=== PATIENT | male | born 1960 | race Caucasian/White ===

== ENCOUNTER 2018-12-23 17:19 | Inpatient (IN) | payer MEDICAID, SELFPAY ==
[2018-12-23] VITALS (8 sets, daily range): BP systolic 131–178; BP diastolic 80–110; PULSE 74–89; RESP 16–20; TEMP 36.5–37.3; O2SAT 94–97; BMI 46.7; BMI 47.1
--- NOTE | 2018-12-23 17:53 | CT_ITS ---
STUDY: CT BRAIN WITHOUT CONTRAST REASON FOR EXAM: Male, 58 years old. Fall today, trauma RADIATION DOSAGE (If Supplied By Facility): CTDIvol = ( 44.99 ) mGy, DLP = ( 812.98 ) mGycm TECHNIQUE: Transaxial CT imaging of the brain was performed without administration of intravenous contrast material. Individualized dose optimization techniques were used for this CT. COMPARISON: No relevant priors. FINDINGS: There are central and cortical involutional changes. There are mild deep white matter periventricular hypodensities. There are punctate hypodensities in the basal ganglia. There is a calcified lesion overlying the right frontal convexity within the subcutaneous soft tissues measuring 2.1 x 1.5 x 1.2 cm. Normal calvarium. Normal brainstem. Normal cerebellum. There is no intracranial hemorrhage. There are no findings of an acute ischemic infarction. There is mucosal thickening within the right maxillary sinus. CT/Brain/Head without Contrast IMPRESSION: Significant central and cortical involutional changes for the patient's age and should be correlated clinically Mild old deep white matter and basal ganglia small vessel ischemic changes Indeterminate most likely benign calcified lesion overlying the right frontal convexity within the subcutaneous soft tissues measuring 2.1 x 1.5 x 1.2 cm this should be correlated clinically and with physical exam findings and prior imaging Electronically Signed: Paul Valdez, at 18:57 EDT Tel , Service support ,
--- NOTE | 2018-12-23 17:54 | RAD_ITS ---
STUDY: X-RAY - RIGHT TIBIA AND FIBULA REASON FOR EXAM: Male, 58 years old. Fall, trauma TECHNIQUE: AP and lateral view(s) of the tibia and fibula were obtained. COMPARISON: None. FINDINGS: There are osteophytes at the Achilles tendon insertion. There is mild soft tissue edema. The bone mineralization is normal. There is subtle subchondral lucencies within the medial talar dome. There is also tiny joint mouse versus osteophyte within the medial compartment. RAD/Tibia & Fibula 2 Views IMPRESSION: Soft tissue edema Osteophyte at the Achilles tendon insertion Likely osteochondral lesions medial talar dome and tiny bony density most likely small joint mouse less likely osteophyte within the medial tibiotalar compartment, this can be further evaluated with CT or MRI Electronically Signed: Paul Valdez, at 18:41 EDT Tel , Service support ,
[2018-12-23] MEDS: 0.9% Normal Saline 1,000 ML 150 ML IV (18:06)
[2018-12-23 18:15] LABS: Absolute Lymphocyte Count 1.22 X10^3/ul (0.83-4.51); Absolute Neutrophil Count 6.5 X10^3/uL (2.0-7.7); Basophil# 0.05 X10^3/uL; Basophil% 0.6 % (0-1); Eosinophil# 0.43 X10^3/uL; Eosinophils% 4.8 % (0-5); Hemoglobin 12.6 g/dl (13.0-16.5); Lymphocyte # 1.22 X10^3/ul (4.0); Lymphocyte % 13.7 % (19-41); Mean Corp Hgb Conc 31.5 g/gl (32-36); Mean Corpuscular Volume 79.5 fL (80-94); Mean Platelet Vol. 9.9 fl (6.2-12.0); Monocyte# 0.71 X10^3/uL; Neutrophil # 6.49 X10^3/uL (2.7-7.7); Neutrophil % 72.7 % (47-70); Platelet Count 222 K/mm3 (150-450); RBC Distribution Width CV 16.3 % (11.6-14.6); RBC Distribution Width SD 46.7 fl (35.1-43.9); Red Blood Count 5.03 M/mm3 (4.6-6.2); White Blood Count 8.9 K/mm3 (4.4-11.0)
[2018-12-23 18:17] LABS: POSITIVE COUNT NO; POSITIVE DIFFERENTIAL NO; POSITIVE MORPHOLOGY NO
--- NOTE | 2018-12-23 18:18 | RAD_ITS ---
STUDY: X-RAY - RIGHT KNEE REASON FOR EXAM: Male, 58 years old. Right knee pain after falling. TECHNIQUE: 4 view(s) of the knee. COMPARISON: None. FINDINGS: Normal visualized distal femur. Normal visualized proximal tibia and fibula. Normal proximal tibiofibular articulation. Enthesophyte of the patella. Negative for fracture. Normal medial femorotibial compartment. Normal lateral femorotibial compartment. Normal patellofemoral articulation. Negative for substantial joint effusion. Superficial soft tissue swelling. RAD/Knee 4 or More Views IMPRESSION: Superficial soft tissue swelling without underlying fracture, dislocation or a substantial joint effusion. Electronically Signed: Ethel Mejia MD at 18:40 EDT , Service support ,
[2018-12-23 18:35] LABS: Anion Gap 7 (5-15); BUN 51 mg/dL (7-18); BUN/Creat Ratio 19.6 RATIO (10-20); Calcium,Total 8.7 mg/dL (8.5-10.1); Chloride 113 mmol/L (98-107); EST Glomerular Filtration Rate 27 mL/min (>60); Est Glom Filt Rate - Afr Amer 33 mL/min (>60); Estimated Creatinine Clearance 33.16 ml/min; Glucose 123 mg/dL (74-106); Potassium 4.5 mmol/L (3.5-5.1); Sodium Level 140 mmol/L (136-145)
--- NOTE | 2018-12-23 18:54 | ED.RN ---
md aware pt has not given a urine sample, md states give a little more time on fluids before straight cath.
--- NOTE | 2018-12-23 19:19 | HP.PCM_ITS ---
Problem List (1) CHANTALE (acute kidney injury) Status: Acute (2) Falls frequently Status: Acute (3) Right foot drop Status: Acute (4) Wound of lower extremity Status: Chronic Qualifiers: Laterality: left (5) CKD (chronic kidney disease), stage III Status: Chronic (6) Morbid obesity Status: Chronic (7) HTN (hypertension) Status: Chronic Qualifiers: Hypertension type: essential hypertension Qualified Code(s): I10 - Essential (primary) hypertension (8) HLD (hyperlipidemia) Status: Chronic Qualifiers: Hyperlipidemia type: unspecified Qualified Code(s): E78.5 - Hyperlipidemia, unspecified (9) RAQUEL (obstructive sleep apnea) Status: Chronic (10) Diabetes mellitus, type II Status: Chronic Qualifiers: 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 use Diabetes mellitus complication status: with unspecified complications Qualified Code(s): E11.8 - Type 2 diabetes mellitus with unspecified complications (11) Primary idiopathic dilated cardiomyopathy Status: Chronic History of Present Illness Date of Admission: 12/23/18 Chief Complaint: Falls, New R foot drop The patient is a 58 y/o M w/ PMHx: Primary idiopathic dilated cardiomyopathy w/ AICD in place, CKD stage III, RAQUEL not using CPAP, HTN, HLD, Diabetes mellitus type II, Morbid Obesity, Chronic LLE distal leg wound who presents to the [facility] ED on 12/23/18 with history of serial falls over the last 48 hours, both times noting he was walking out to the mailbox, right lower extremity would not function well and leg gave out with newly noted inability to lift his foot up. He denies any other focal neurological changes and states he has felt well otherwise. Work-up in the ED included T 98.4, HR 80, BP 136/87, RR 16, 96% on RA, CBC w/ WBC 8.9, Hgb 12.6, Plts 222 without marked shift, BMP w/ Chl 113, CO2 20, BUN/Cr 51/2.60, glucose 123, trop < 0.015, EKG without acute evidence of ischemia, CT head w/ significant central and cortical involutional changes for the patient's age, mild old deep white matter and basal ganglia small vessel ischemic changes, and indeterminate likely benign calcified lesion overlying the right frontal convexity with a subcutaneous soft tissue measuring 2.1 x 1.5 x 1.2 cm consistent with a patient sebaceous cyst on examination which is been chronic per discussion with him, right tib-fib with soft tissue edema, osteophyte at the Achilles tendon insertion, likely osteochondral lesions in the medial talar dome and tiny bony densities most likely small joint osteophyte within the medial tibiotalar compartment superficial soft tissue swelling with no underlying effusion, fracture, disclocation. In the ED patient ministered normal saline. Past Medical History Past Medical History (Chronic Problems): Chronic Problems Wound of lower extremity (Chronic) CKD (chronic kidney disease), stage III (Chronic) Morbid obesity (Chronic) HTN (hypertension) (Chronic) HLD (hyperlipidemia) (Chronic) RAQUEL (obstructive sleep apnea) (Chronic) Diabetes mellitus, type II (Chronic) Primary idiopathic dilated cardiomyopathy (Chronic) Mitral valve regurgitation (Chronic) CKD (chronic kidney disease), stage II (Chronic) Allergies No Known Allergies Allergy (Verified 12/23/18 17:28) Home Medications: Ambulatory Orders Medication Instructions Recorded Allopurinol [Zyloprim] 150 mg PO DAILY 01/27/16 Carvedilol [Coreg (Beta Mary)] 37.5 tab PO BID 01/27/16 Linagliptin [Tradjenta] 5 mg PO DAILY 08/05/17 Amlodipine Besylate 10 mg PO DAILY 12/23/18 Ammonium Lactate 1 applicatio TP DAILY 12/23/18 Bumetanide 0.5 mg PO QODAY 12/23/18 Latanoprost 0.005% [Xalatan 1 drop EACH EYE DAILY 12/23/18 Opthalmic] Lisinopril [Zestril] 5 mg PO DAILY 12/23/18 Surgical History: - - Tonsillectomy, left lower extremity debridement of chronic wound, AICD placement, appendectomy. Psychiatric History: No pertinent psych hx Lives: Alone Smoking Status: Never smoker Tobacco Use: Non-smoker Alcohol: Occasional Drugs: None - *Family History Maternal History Items: Diabetes Paternal History Items: Diabetes, Heart Disease, Hypertension Review of Systems Constitutional: Reports: Fatigue. Denies: Chills, Fever, Weight Change HEENT: Denies: Head Aches, Sinus Congestion, Sinus Drainage Cardiovascular: Denies: Chest Pain, Palpitations Respiratory: Denies: Cough, Shortness of breath at rest, Sputum production Gastrointestinal: Denies: Abdominal Pain, Nausea, Vomiting Genitourinary: Denies: Dysuria Musculoskeletal: Reports: - - Frequent falls with right lower extremity giving out, new onset right foot drop.. Denies: Joint Pain, Joint Tenderness Skin: Reports: Skin Changes, Wounds. Denies: Rash Neurological: Denies: Numbness, Tingling, Focal weakness Psychiatric: Denies: Anxiety, Depression, Homicidal Ideations, Suicidal Ideations Hematologic/ Lymphatic: Reports: Anemia. Denies: Easy Bruising, Easy Bleeding VTE Information - Inpt Only VTE Present on Admission: No VTE Mechan Device Prophylaxis: SCD's VTE Pharm Prophylaxis ordered?: Yes Patient Problems: Active and Suspected Problems Falls frequently (Acute) Right foot drop (Acute) Subjective: Seated upright in the ED bed, mildly fatigued appearance, no acute distress otherwise. Objective: Physical Examination: General: awake, alert, oriented x 3 and cooperative, seated upright in the ED bed in no apparent distress. Skin: normal color, turgor, no icterus, cyanosis notable bilateral lower extremity chronic venous stasis skin changes, chronic left lower extremity distal medial casillas with chronic wound, noninfected appearing. HEENT: AT/NC, EOMI, PERRLA, mildly dry MM, no carotid bruits or JVD noted;, habitus makes examination difficult. Lungs: CTA bilaterally, moderate effort, moderate decrease BL bases, no rales, ronchi or wheezing. Heart: Regular rate and rhythm; no gallop, rub audible. Abdomen: soft, morbidly obese, NTTP, ND, normal BS, no HSM; ever, habitus makes examination difficult, groin folds and abdominal folds with evident intertrigo. Extremities: no cyanosis, clubbing, see skin. Neurological: patient awake, alert, oriented x 3; cognitive function intact; pupils equally reactive to light and accomodation; cranial nerves II-XII grossly normal, moving all 4 extremities, noted right foot drop otherwise no focal deficits, sensation intact at baseline, strength globally moderately decreased, [id number] and [id number] appropriate except limitations with right foot drop, negative Babinski bilaterally. Psychiatric: affect appears normal aside from mild fatigue, no acute evidence of depressive or anxiety feelings. - Physical Exam Vital Signs Temp Pulse Resp BP Pulse Ox 99.1 F 85 16 136/87 H 96 12/23/18 17:20 12/23/18 17:20 12/23/18 17:20 12/23/18 17:20 12/23/18 17:20 Oxygen Delivery Method Room Air Weight: 344 lb 9.32 oz Body Mass Index (BMI) 46.7 Finger Stick Blood Glucose 307 Laboratory Tests Past 24 Hrs 12/23/18 12/23/18 18:06 18:06 WBC 8.9 RBC 5.03 Hgb 12.6 L Hct 40.0 MCV 79.5 L MCH 25.0 L MCHC 31.5 L RDW 16.3 H RDW Differential 46.7 H Plt Count 222 MPV 9.9 Immature Gran % (Auto) 0.200 Neut % (Auto) 72.7 H Lymph % (Auto) 13.7 L Steele % (Auto) 8.0 Eos % (Auto) 4.8 Baso % (Auto) 0.6 Absolute Neuts (auto) 6.5 Absolute Lymphs (auto) 1.22 Total Counted Not Reportable Sodium 140 Potassium 4.5 Chloride 113 H Carbon Dioxide 20.0 L Anion Gap 7 BUN 51 H Creatinine 2.60 H Estim Creat Clear Calc 33.16 Est GFR (MDRD) Af Amer 33 L Est GFR (MDRD) Non-Af 27 L BUN/Creatinine Ratio 19.6 Glucose 123 H Calcium 8.7 Troponin I < 0.015 Assessment/Plan All Active Problems Falls frequently (Acute) Right foot drop (Acute) Hyperkalemia (Acute) Hyperosmolar non-ketotic state in patient with type 2 diabetes mellitus (Acute) CHANTALE (acute kidney injury) (Acute) The patient is a 58 y/o M w/ PMHx: Primary idiopathic dilated cardiomyopathy w/ AICD in place, CKD stage III, RAQUEL not using CPAP, HTN, HLD, Diabetes mellitus type II, Morbid Obesity, Chronic LLE distal leg wound who presents to the [facility] ED on 12/23/18 with history of serial falls over the last 48 hours, both times noting he was walking out to the mailbox, right lower extremity would not function well and leg gave out with newly noted inability to lift his foot up. He denies any other focal neurological changes and states he has felt well otherwise. (1) Frequent Falls w/ New RLE Foot Drop concerning for Possible Spinal Lesion, Possible CVA although less likely, Possible Orthopedic Etiology: Will admit to PCU, unable to obtain MRI given AICD, discussed case with Neurology, will defer repeat CT head, will obtain CT cervical spine and lumbar spine, may possibly need an EMG pending these findings, obtain ECHO, PT/OT/Speech/Nutrition evaluation per protocol. Will consult Neurology for evaluation. Will allow permissive HTN but again likely will restart regimen in AM, maintain on asa, add high dose statin w/ AM FLP, fall precautions. Mag, TSH and HgA1c pending. (2) Acute kidney injury on CKD stage III: Secondary to possibly nephrotoxic regimen, possibly recently poor oral intake versus worsening renal function. Admission BUN/Cr 51/2.60, prior baseline creatinine noted to be 1.5-1.9, has had prior CHANTALE history. Will gently hydrate given cardiomyopathy, hold nephrotoxic medications and repeat chemistry in AM. Will obtain renal US, FeNa assessment. Nephrology consulted. (3) Primary idiopathic dilated cardiomyopathy: Status post AICD, as noted tempo rarily holding BP regimen, restart regimen once appropriate given also concurrent CHANTALE. (4) Intertrigo: Notable groin fold and genital region intertrigo, will initiate appropriate cleansing regimen with scheduled nystatin powder. (5) Chronic left lower extremity distal leg wound: Wound care consulted, dressing changes per their direction, notes this is been ongoing and could not detail if biopsy previously obtained. (6) Incidentally Osteochondral lesions medial talar dome and tiny bony density: Unclear specific etiology, contacted technical marketing consultant Orthopedic surgery (Dr. Brown) and noted not acute, she notes likely not etiology, noted intention for outpatient follow-up only. (7) Hypertension: Given unclear etiology for foot drop, possible stroke although not likely will temporarily place on permissive hypertension. Likely restart regimen in a.m. (8) Hyperlipidemia: We will add high-dose statin regimen. AM FLP. (9) Diabetes mellitus type II: Hold oral home regimen, ADA diet, accu checks w/ ISS, nutrition consultation for education and teaching. (10) Morbid Obesity: Weight loss and lifestyle changes encouraged, nutrition consulted. (11) RAQUEL: Not using CPAP. (12) DVT prophylaxis: SCDs, heparin. Code Visit Inpatient E&M: 40234 Init Hosp L3
[2018-12-23 19:22] LABS: Mucous, Urine 0 SEEN /hpf (<or=2+); Squamous Epithelial Cells - UA 0 SEEN /hpf (0-5)
--- NOTE | 2018-12-23 19:35 | ED.DCSUM_ITS ---
- ER Visit Summary Date of Service: 12/23/18 Chief Complaint: [Falls] History of Present Illness: The patient is a 58 M [presents to the emergency department with falls that occurred yesterday and today. Patient states that he went out to the mailbox and it felt like his right leg gave out. Patient thinks it might be a problem with the area around his right knee but is not sure. Patient denies striking his head or loss of consciousness. He denies injury. Patient wants to know ice falling. Patient does have a history of diabetes, hyperkalemia, acute kidney injury history and cardiomyopathy history. Patient does have a defibrillator. He denies any chest pain or shortness of breath. He denies defibrillator discharging. He denies recent illness. She denies back pain.] Physical Examination: [HEENT-PERRLA, EOMI. Cranial nerves II through XII grossly intact. TMs clear. Mucous membranes moist. No adenopathy. Cardiovascular-regular rate and rhythm without murmur or ectopy Lungs-clear to auscultation, chest wall stable without crepitus or subcu emphysema Abdomen-normoactive bowel sounds, soft, nontender, no rebound or rigidity, no peritoneal signs. Back exam-patient has no tenderness over the thoracic or lumbar spine. Negative straight leg raises. Patient does have a right-sided foot drop. Deep tendon reflexes are plus 2 out of 4 bilaterally at the patella and Achilles. Patient has weak L5 extension on the right. Extremities-intact ?4, normal range of motion, normal pulses, atraumatic] Test Results: [CT scan of the brain without contrast showed cortical involutional changes advanced for patient's age. Patient also with small vessel ischemic changes. X-rays of the right knee showed some soft tissue swelling but no fractures. X-rays of the right tib-fib showed osteochondral lesions medial talar dome. CBC with differential count of 8.9, hemoglobin 12.6, hematocrit 40, placed 222. Chemistries show sodium 140, potassium 4.5, chloride 113, CO2 20, glucose 123, BUN 51, creatinine 2.6. Troponin is less than 0.015.] Urinalysis pending. Emergency Department Course and Treatment: [Patient was given normal saline.] Treatment Plan: [Admit for further work-up and evaluation of his foot drop and acute kidney injury.] Disposition: [Admit] Impression: [Acute kidney injury Right foot drop Frequent falls] This note was generated with [employer] dictation software. It may contain incorrect words, spelling, and punctuation that were not noted in review of the chart prior to signing ED Disposition - Plan for ED Patient: Referrals: Juany Wylie MD [Primary Care Provider] -
[2018-12-23 19:46] LABS: Color, Urine Yellow (Yellow); Glucose, Dipstick Normal (Normal); Ketone-Dipstick Negative (Negative); Leukocyte Esterase-Dipstick 500 /ul (Negative); Nitrite-Dipstick Positive (Negative); Occult Blood-Urine 250 /ul (Negative); Protein-Dipstick 100 mg/dl (Negative); Urine Bilirubin Dipstick Negative (Negative); Urine Clarity Cloudy (Clear); Urine Urobilinogen Normal (Normal)
--- NOTE | 2018-12-23 20:34 | CT_ITS ---
STUDY: CT CERVICAL SPINE WITHOUT CONTRAST REASON FOR EXAM: Male, 58 years old. Trauma RADIATION DOSAGE (If Supplied By Facility): CTDIvol = ( 30.16 ) mGy, DLP = ( 800.35 ) mGycm TECHNIQUE: High resolution transaxial imaging was performed without contrast material. Sagittal and coronal images were reconstructed. Individualized dose optimization techniques were used for this CT. COMPARISON: None FINDINGS: Normal craniovertebral junction. Normal anterior atlantoaxial articulation. Normal odontoid process. Mild cervical kyphosis possibly due to muscle spasm Normal vertebral bodies and posterior osseous elements. C2-3: Normal endplates. Normal disc height and morphology. Normal central canal and intervertebral neuroforamina. C3-4: Normal endplates. Normal disc height and small central disc protrusion.. Normal central canal and intervertebral neuroforamina. C4-5: Normal endplates. Normal disc height and morphology. Normal central canal. Moderate right neuroforaminal encroachment secondary to bony hypertrophy. C5-6: Minor endplate spurring.. Normal disc height and morphology. Normal central canal and intervertebral neuroforamina. C6-7: Narrowed disc space and endplate spurring with moderate size right paracentral/posterolateral osteophyte protrusion narrowing the spinal canal and mildly compressing the cord. Mild right neuroforaminal stenosis secondary to bony hypertrophy. C7-T1: Normal endplates. Normal disc height and morphology. Normal central canal and intervertebral neuroforamina. Normal visualized soft tissue structures. CT/Spine Cervical without Contras IMPRESSION: No evidence for acute fracture or subluxation. Mild spondylosis most severe at C6-7 Electronically Signed: Robert Rivera MD at 21:24 EDT , Service support ,
--- NOTE | 2018-12-23 20:34 | ECHOCS_ITS ---
Reason For Study: TIA/CVA Procedure This was a 2D Doppler, Color Flow transthoracic echocardiogram. The exam was of poor technical quality due to body habitus. Exam performed portable in patient room. Left Ventricle Normal size and thickness. The estimated ejection fraction is 55 %. Septal motion consistent with IVCD. No regional wall motion abnormalities noted. Right Ventricle Normal size and thickness. ICD or pacer leads identified within the right ventricle. Normal systolic function. Atria The left atrium is mildly enlarged. Normal right atrium. Normal atrial septum. Mitral Valve The mitral valve is structurally normal. No prolapse or stenosis seen. Tricuspid Valve Normal tricuspid valve. Unable to estimate RV systolic pressure/pulmonary artery pressure due to technically difficult study. Aortic Valve Normal aortic valve. Trisinus/trileaflet aortic valve. Pulmonic Valve The pulmonic valve is not well visualized. Great Vessels Normal aortic root. Normal arch. Pericardium/Pleural No pericardial effusion. Medication Diluted definity 4ml given slow IV push to enhance endocardial definition. MMode/2D Measurements & Calculations Ao root diam: 3.2 cm LAV(MOD-bp): 61.1 ml LVAd ap4: 42.5 cm2 LAV(MOD-bp) Indexed: 23.0 ml/m2 EDV(MOD-sp4): 158.6 ml LAV(MOD-sp2): 54.9 ml EDV(sp4-el): 166.2 ml LAV(MOD-sp4): 67.3 ml LVAs ap4: 26.0 cm2 ESV(MOD-sp4): 65.2 ml ESV(sp4-el): 69.1 ml EF(MOD-sp4): 58.9 % EF(sp4-el): 58.4 % SV(MOD-sp4): 93.4 ml SV(sp4-el): 97.1 ml LA A4 area: 21.1 cm2 LA dimension(2D): 3.3 cm Time Measurements MV dec time: 0.24 sec Doppler Measurements & Calculations MV E max mikey: 87.8 cm/sec Lat Peak E' Mikey: 4.6 cm/sec Med Peak E' Mikey: 5.2 cm/sec MV A max mikey: 121.9 cm/sec E/E' lat: 19.2 E/E' med: 16.8 MV E/A: 0.72 Ao V2 max: 156.0 cm/sec LV V1 max: 107.3 cm/sec PA V2 max: 80.1 cm/sec Ao max P.7 mmHg LV V1 max P.6 mmHg Interpretation Summary The estimated ejection fraction is 55 %. The left atrium is mildly enlarged. Unable to estimate RV systolic pressure/pulmonary artery pressure due to technically difficult study. Compared to echo report dated 11/25/2010, LV function has improved from 20% to 55%. The study was technically difficult. Contrast injection was performed. Ordering Physician: Carole Roberts Referring Physician: MUSTAPHA CANALES Performed By: Phuong Ayala, VEDA, RVT
--- NOTE | 2018-12-23 20:34 | CT_ITS ---
STUDY: CT LUMBAR SPINE WITHOUT CONTRAST REASON FOR EXAM: Male, 58 years old. Separate foot drop after falling. History of hypertension, diabetes, chronic kidney disease stage II, congestive heart failure. Status post appendectomy. RADIATION DOSAGE (If Supplied By Facility): CTDIvol = ( 45.46 ) mGy, DLP = ( 1344.03 ) mGycm TECHNIQUE: The patient was scanned in a multi detector CT scanner. High resolution transaxial imaging was performed. Images were obtained from T12 to S2. Sagittal and coronal images were reconstructed. Individualized dose optimization techniques were used for this CT. COMPARISON: None FINDINGS: Normal lumbar lordosis. There is no substantial scoliosis. Normal vertebrae of the lumbar spine. There is no demonstrated compression deformity or fracture of the visualized lumbar vertebrae. L1-2: Normal endplates. Normal disc height and morphology. Normal bilateral facet joints. Normal central canal and bilateral lateral recesses. Normal bilateral intervertebral neural foramina. L2-3: Mild disc narrowing mild posterior facet arthrosis and hypertrophy without central stenosis or foraminal narrowing. L3-4: Mild disc narrowing. Moderate posterior element facet arthrosis and hypertrophy without central stenosis. Mild narrowing of the lateral recesses without foraminal narrowing. L4-5: Disc narrowing with posterior annulus bulge with partial calcification of the annulus on the left. Moderate posterior facet arthrosis and hypertrophy with narrowing of the lateral recesses and borderline spinal stenosis and foraminal narrowing on the left. L5-S1: Mild disc narrowing. Mild posterior facet arthrosis without central stenosis or substantial foraminal narrowing. Atherosclerotic vascular calcifications. CT/Spine Lumbar without Contrast IMPRESSION: Normal alignment of the lumbar spine without acute fracture deformity. Degenerative disc and joint changes as stated above. The most severe findings are at L4-5 with disc narrowing with a posterior annulus bulge partially calcified on the left and moderate facet arthrosis and posterior hypertrophy causing borderline general spinal stenosis narrowing of the lateral recesses, left greater than right and left foraminal narrowing. Electronically Signed: Ethel Mejia MD at 21:58 EDT , Service support ,
[2018-12-23 21:03] LABS: Bacteria 1+ /hpf (None Seen); White Blood Cells 25-50 SEEN /hpf (0-5)
[2018-12-23 21:04] LABS: Red Blood Cells-Urine 5-10 SEEN /hpf (0-5)
[2018-12-23 21:08] LABS: Hemoglobin A1c 7.3 % (4.2-6.3)
[2018-12-23 21:09] LABS: Thyroid Stim Hormone (TSH) 1.09 uIU/mL (0.358-3.74)
[2018-12-23] MEDS: Heparin Injection (Vial) 5,000 UNIT/ML VIAL 5000 UNIT SC (22:17)
[2018-12-23] MEDS: 0.9% Normal Saline 1,000 ML 125 ML IV (22:17)
[2018-12-23] MEDS: Atorvastatin Calcium 80 MG Tablet PO (22:17)
[2018-12-23 22:18] LABS: Urine Sodium 61 mmol/L (Not Establ.)
[2018-12-23] MEDS: Nystatin Powder 15gm Bottle 1 APPLIC TOPICAL (22:23)
[2018-12-23] MEDS: 0.9% NaCl Peripheral Flush Adult/Peds IV (22:23)
[2018-12-23 22:40] LABS: Bedside Glucose 96 mg/dL (70-110)
[2018-12-24] VITALS (13 sets, daily range): BP systolic 141–164; BP diastolic 76–92; PULSE 72–87; RESP 16–18; TEMP 36.6–37.4; O2SAT 92–97; BMI 47.1
[2018-12-24] MEDS: Nystatin Powder 15gm Bottle 1 APPLIC TOPICAL ×3 (05:44→21:21)
[2018-12-24] MEDS: 0.9% Normal Saline 1,000 ML 125 ML IV ×3 (05:44→23:54)
--- NOTE | 2018-12-24 05:55 | US_ITS ---
STUDY: RENAL ULTRASOUND - COMPLETE REASON FOR EXAM: Male, 58 years old. Acute renal failure TECHNIQUE: Ultrasound evaluation of the kidneys was performed with real-time and static mejia-scale imaging. COMPARISON: April 30, 2007 FINDINGS: RIGHT KIDNEY: Normal location of the right kidney, which is normal in size. The right kidney measures 14.6 x 7.3 x 5.8 cm. There is a normal cortex of the right kidney. The renal cortex measures 1.1 cm. There are 2 cysts measuring 1.2 x 1.3 x 1.2 cm and 1.8 x 1.9 x 2 cm.. There are 2 nonobstructing calculi. There is no right hydronephrosis. DISTAL RIGHT URETER: There is non-visualization of the distal right ureter. There is no demonstrated right ureterovesical junction calculus. There is a visualized right ureteral jet. LEFT KIDNEY: Normal location of the left kidney, which is normal in size. The left kidney measures 14.1 x 6.8 x 7.6 cm. There is a thin cortex of the left kidney. The renal cortex measures 0.8 cm. There are 3 renal cysts measuring 4.1 x 4.4 x 2.8 cm, 2.3 x 1.92 cm and 3.4 x 3.2 x 3.2 cm. There is a nonobstructing stone.. There is mild to moderate hydronephrosis. DISTAL LEFT URETER: There is non-visualization of the distal left ureter. There is no demonstrated left ureterovesical junction calculus. There is a visualized left ureteral jet. Increased cortical echoes are noted bilaterally consistent with nonspecific renal parenchymal disease BLADDER: The distended urinary bladder has a volume of 1680 ml.. Bladder wall thickness is increased measuring approximately 5 mm. There is no demonstrated mass within the urinary bladder. There are no demonstrated bladder calculi. The left renal obstruction bilateral calculi and several of the cysts are new finding since previous exam US/Kidney and Bladder IMPRESSION: Bilateral nonobstructing renal calculi and multiple cysts Mild to moderate left hydronephrosis Findings consistent with nonspecific renal parenchymal disease. Thick-walled distended bladder of uncertain etiology. CT would be helpful to further evaluate the etiology of left renal hydronephrosis if clinically warranted Electronically Signed: Robert Rivera MD at 16:05 EDT , Service support ,
[2018-12-24 07:10] LABS: Bedside Glucose 109 mg/dL (70-110)
[2018-12-24 07:18] LABS: Absolute Lymphocyte Count 1.41 X10^3/ul (0.83-4.51); Absolute Neutrophil Count 5.7 X10^3/uL (2.0-7.7); Basophil# 0.03 X10^3/uL; Basophil% 0.4 % (0-1); Eosinophil# 0.39 X10^3/uL; Eosinophils% 4.7 % (0-5); Hematocrit 37.5 % (40-54); Hemoglobin 11.9 g/dl (13.0-16.5); Lymphocyte # 1.41 X10^3/ul (4.0); Lymphocyte % 16.8 % (19-41); Mean Corp Hgb Conc 31.7 g/gl (32-36); Mean Corpuscular Hgb 25.3 pg (27.0-32.0); Mean Corpuscular Volume 79.8 fL (80-94); Mean Platelet Vol. 9.8 fl (6.2-12.0); Monocyte# 0.85 X10^3/uL; Monocyte% 10.1 % (0-10); Neutrophil # 5.69 X10^3/uL (2.7-7.7); Neutrophil % 67.9 % (47-70); Platelet Count 208 K/mm3 (150-450); RBC Distribution Width CV 16.2 % (11.6-14.6); RBC Distribution Width SD 47.3 fl (35.1-43.9); White Blood Count 8.4 K/mm3 (4.4-11.0)
[2018-12-24 07:20] LABS: POSITIVE COUNT NO; POSITIVE DIFFERENTIAL NO; POSITIVE MORPHOLOGY NO
[2018-12-24 07:22] LABS: Anion Gap 7 (5-15); BUN 43 mg/dL (7-18); BUN/Creat Ratio 17.8 RATIO (10-20); Calcium,Total 8.4 mg/dL (8.5-10.1); Chloride 116 mmol/L (98-107); Cholesterol 119 mg/dL (200); Creatinine, Serum 2.42 mg/dL (0.70-1.30); EST Glomerular Filtration Rate 29 mL/min (>60); Est Glom Filt Rate - Afr Amer 35 mL/min (>60); Estimated Creatinine Clearance 34.57 ml/min; Glucose 113 mg/dL (74-106); High Density Lipoprotein 29 mg/dL; Potassium 3.7 mmol/L (3.5-5.1); Sodium Level 145 mmol/L (136-145); Triglycerides 107 mg/dL; Very Low Density Lipoprotein 21 mg/dL (5-40)
[2018-12-24] MEDS: Aspirin 81 MG TAB.CHEW PO (08:16)
[2018-12-24] MEDS: Allopurinol 300 MG Tablet 150 MG PO (08:16)
[2018-12-24] MEDS: Heparin Injection (Vial) 5,000 UNIT/ML VIAL 5000 UNIT SC ×2 (08:23→21:22)
[2018-12-24] MEDS: Ceftriaxone 1 GM/50 ML BAG IV (08:23)
--- NOTE | 2018-12-24 10:30 | NURSING ---
wound photo: left medial lower leg
--- NOTE | 2018-12-24 10:31 | NURSING ---
wound photo: left anterior lower leg
--- NOTE | 2018-12-24 10:45 | CON.PCM_ITS ---
Problem List (1) Right foot drop Status: Acute Reason for Consult Date of Consultation: 12/24/18 Reason for Consultation: Right foot drop History of Present Illness: The patient is a 58 year old M with PMH HTN, HLD, DM, idiopathic dilated cardiomyopathy S/P AICD, CKD, RAQUEL, morbid obesity, chronic left lower extremity distal leg wounds admitted with falls and right foot drop. Per patient he started falling about 2 days ago from 12/22/2018, had about 2 falls and according to the patient his right leg or the foot would give away. Denies any right foot pain or leg pain, denies any numbness denies any low back pain, neck pain or radicular symptoms. Denies any headache dizziness, visual disturbances or speech disturbances, denies any urinary incontinence. Denies any trauma. CT head showed significant central and cortical involutional changes, mild old deep white matter and basal ganglia small vessel ischemic changes, indeterminate most likely benign calcified lesion overlying the right frontal convexity within the subcutaneous soft tissue. CT C-spine without contrast reported to show C6-C7 narrowed disc space, endplate spurring with moderate size right paracentral/posterolateral osteophyte protrusion narrowing the spinal canal and mildly compressing the cord, mild right neuroforaminal stenosis secondary to bony hypertrophy, mild spondylosis. CT L-spine without contrast reported to show degenerative disc and joint changes, L4-L5 disc narrowing with posterior annulus bulge with partial calcification of the annulus on the left, moderate posterior facet arthrosis and hypertrophy with narrowing of the lateral recesses and borderline spinal stenosis and foraminal narrowing on the left. Creatinine?2.6 on admission, UA?cloudy, nitrite?positive, LE?500, WBC 25-50, +1 bacteria. [] Past Medical History Past Medical History (Chronic Problems): Chronic Problems Wound of lower extremity (Chronic) CKD (chronic kidney disease), stage III (Chronic) Morbid obesity (Chronic) HTN (hypertension) (Chronic) HLD (hyperlipidemia) (Chronic) RAQUEL (obstructive sleep apnea) (Chronic) Diabetes mellitus, type II (Chronic) Primary idiopathic dilated cardiomyopathy (Chronic) Mitral valve regurgitation (Chronic) CKD (chronic kidney disease), stage II (Chronic) Allergies No Known Allergies Allergy (Verified 12/23/18 17:28) Home Medications: Ambulatory Orders Medication Instructions Recorded Allopurinol [Zyloprim] 150 mg PO DAILY 01/27/16 Carvedilol [Coreg (Beta Mary)] 37.5 tab PO BID 01/27/16 Linagliptin [Tradjenta] 5 mg PO DAILY 08/05/17 Amlodipine Besylate 10 mg PO DAILY 12/23/18 Ammonium Lactate 1 applicatio TP DAILY 12/23/18 Bumetanide 0.5 mg PO QODAY 12/23/18 Latanoprost 0.005% [Xalatan 1 drop EACH EYE DAILY 12/23/18 Opthalmic] Lisinopril [Zestril] 5 mg PO DAILY 12/23/18 Surgical History: - - Tonsillectomy, left lower extremity debridement of chronic wound, AICD placement, appendectomy. Psychiatric History: No pertinent psych hx Lives: Alone Smoking Status: Never smoker Tobacco Use: Non-smoker Alcohol: Occasional Drugs: None - *Family History Maternal History Items: Diabetes Paternal History Items: Diabetes, Heart Disease, Hypertension Review of Systems Constitutional: Reports: - - Complete ROS negative except as documented in HPI Patient Problems: Active and Suspected Problems Falls frequently (Acute) Right foot drop (Acute) - Physical Exam General: Alert HEENT: Normocephalic Neck: Supple Lungs: Normal air movement Cardiovascular: Normal S1, Normal S2 Abdomen: Bowel Sounds Present Extremities: No cyanosis Neurological: - - Conscious, alert, AOA x3, CN?2-12 grossly intact, power 5 x 5 bilateral upper extremities, 5 x 5 in bilateral lower extremities proximally, at knee joint and left foot, with right foot dorsiflexion and eversion weakness (3/5), no sensory loss, no cerebellar signs, gait deferred, Reflexes brisk UE/LE B/L B/S/T/K/A, no clonus, plantars B/L flexor Psych/Mental Status: Normal Affect Vital Signs Temp Pulse Resp BP Pulse Ox 99.3 F H 72 18 141/79 H 94 12/24/18 09:45 12/24/18 09:45 12/24/18 09:45 12/24/18 09:45 12/24/18 09:45 Oxygen Delivery Method Room Air Weight: 153.2 kg Body Mass Index (BMI) 47.1 Finger Stick Blood Glucose 307 Intake and Output for Last 24 Hours 12/22/18 12/23/18 12/24/18 23:59 23:59 23:59 Intake Total 702 / 702 1123 / 1123 Balance 702 / 702 1123 / 1123 Laboratory Tests Past 24 Hrs 12/23/18 12/23/18 12/23/18 18:06 18:06 18:06 WBC 8.9 RBC 5.03 Hgb 12.6 L Hct 40.0 MCV 79.5 L MCH 25.0 L MCHC 31.5 L RDW 16.3 H RDW Differential 46.7 H Plt Count 222 MPV 9.9 Immature Gran % (Auto) 0.200 Neut % (Auto) 72.7 H Lymph % (Auto) 13.7 L [place] % (Auto) 8.0 Eos % (Auto) 4.8 Baso % (Auto) 0.6 Absolute Neuts (auto) 6.5 Absolute Lymphs (auto) 1.22 Total Counted Not Reportable Sodium 140 Potassium 4.5 Chloride 113 H Carbon Dioxide 20.0 L Anion Gap 7 BUN 51 H Creatinine 2.60 H Estim Creat Clear Calc 33.16 Est GFR (MDRD) Af Amer 33 L Est GFR (MDRD) Non-Af 27 L BUN/Creatinine Ratio 19.6 Glucose 123 H Hemoglobin A1c Calcium 8.7 Magnesium 2.0 Troponin I < 0.015 Triglycerides Cholesterol LDL Cholesterol VLDL Cholesterol HDL Cholesterol TSH 1.09 Urine Color Urine Clarity Urine pH Ur Specific [place] Urine Protein Urine Glucose (UA) Urine Ketones Urine Occult Blood Urine Nitrite Urine Bilirubin Urine Urobilinogen Ur Leukocyte Esterase Urine RBC Urine WBC Ur Squamous Epith Cells Urine Bacteria Urine Mucus Ur Random Sodium Urine Creatinine 12/23/18 12/23/18 12/23/18 18:06 19:15 21:49 WBC RBC Hgb Hct MCV MCH MCHC RDW RDW Differential Plt Count MPV Immature Gran % (Auto) Neut % (Auto) Lymph % (Auto) [place] % (Auto) Eos % (Auto) Baso % (Auto) Absolute Neuts (auto) Absolute Lymphs (auto) Total Counted Sodium Potassium Chloride Carbon Dioxide Anion Gap BUN Creatinine Estim Creat Clear Calc Est GFR (MDRD) Af Amer Est GFR (MDRD) Non-Af BUN/Creatinine Ratio Glucose Hemoglobin A1c 7.3 H Calcium Magnesium Troponin I Triglycerides Cholesterol LDL Cholesterol VLDL Cholesterol HDL Cholesterol TSH Urine Color Yellow Urine Clarity Cloudy Urine pH 7.0 Ur Specific [place] 1.010 Urine Protein 100 H Urine Glucose (UA) Normal Urine Ketones Negative Urine Occult Blood 250 H Urine Nitrite Positive H Urine Bilirubin Negative Urine Urobilinogen Normal Ur Leukocyte Esterase 500 H Urine RBC 5-10 SEEN Urine WBC 25-50 SEEN Ur Squamous Epith Cells 0 SEEN Urine Bacteria 1+ Urine Mucus 0 SEEN Ur Random Sodium Urine Creatinine 76.70 12/23/18 12/24/18 12/24/18 21:49 06:33 06:33 WBC 8.4 RBC 4.70 Hgb 11.9 L Hct 37.5 L MCV 79.8 L MCH 25.3 L MCHC 31.7 L RDW 16.2 H RDW Differential 47.3 H Plt Count 208 MPV 9.8 Immature Gran % (Auto) 0.100 Neut % (Auto) 67.9 Lymph % (Auto) 16.8 L [place] % (Auto) 10.1 H Eos % (Auto) 4.7 Baso % (Auto) 0.4 Absolute Neuts (auto) 5.7 Absolute Lymphs (auto) 1.41 Total Counted Not Reportable Sodium 145 Potassium 3.7 Chloride 116 H Carbon Dioxide 22.0 Anion Gap 7 BUN 43 H Creatinine 2.42 H Estim Creat Clear Calc 34.57 Est GFR (MDRD) Af Amer 35 L Est GFR (MDRD) Non-Af 29 L BUN/Creatinine Ratio 17.8 Glucose 113 H Hemoglobin A1c Calcium 8.4 L Magnesium Troponin I Triglycerides 107 Cholesterol 119 LDL Cholesterol 69 VLDL Cholesterol 21 HDL Cholesterol 29 L TSH Urine Color Urine Clarity Urine pH Ur Specific [place] Urine Protein Urine Glucose (UA) Urine Ketones Urine Occult Blood Urine Nitrite Urine Bilirubin Urine Urobilinogen Ur Leukocyte Esterase Urine RBC Urine WBC Ur Squamous Epith Cells Urine Bacteria Urine Mucus Ur Random Sodium 61 Urine Creatinine POC Glucose 12/24/18 12/23/18 07:07 22:09 POC Glucose 109 96 Assessment/Plan All Active Problems Falls frequently (Acute) Right foot drop (Acute) Hyperkalemia (Acute) Hyperosmolar non-ketotic state in patient with type 2 diabetes mellitus (Acute) CHANTALE (acute kidney injury) (Acute) The patient is a 58 year old M with PMH HTN, HLD, DM, idiopathic dilated cardiomyopathy S/P AICD, CKD, RAQUEL, morbid obesity, chronic left lower extremity distal leg wounds admitted with falls and right foot drop. Per patient he started falling about 2 days ago from 12/22/2018, had about 2 falls and according to the patient his right leg or the foot would give away. Denies any right foot pain or leg pain, denies any numbness denies any low back pain, neck pain or radicular symptoms. Denies any headache dizziness, visual disturbances or speech disturbances, denies any urinary incontinence. Denies any trauma. CT head showed significant central and cortical involutional changes, mild old deep white matter and basal ganglia small vessel ischemic changes, indeterminate most likely benign calcified lesion overlying the right frontal convexity within the subcutaneous soft tissue. CT C-spine without contrast reported to show C6- C7 narrowed disc space, endplate spurring with moderate size right paracentral/posterolateral osteophyte protrusion narrowing the spinal canal and mildly compressing the cord, mild right neuroforaminal stenosis secondary to bony hypertrophy, mild spondylosis. CT L-spine without contrast reported to show degenerative disc and joint changes, L4-L5 disc narrowing with posterior annulus bulge with partial calcification of the annulus on the left, moderate posterior facet arthrosis and hypertrophy with narrowing of the lateral recesses and borderline spinal stenosis and foraminal narrowing on the left. Creatinine?2.6 on admission, UA?cloudy, nitrite?positive, LE?500, WBC 25-50, +1 bacteria. [] Impression Right foot drop?? Etiology Plan ?CT head, CT C-spine and CT L-spine report reviewed?recommend spine surgery consult ?EMG/NCS?in 3-4 weeks as outpatient for further evaluation ?Check YEIMY/ANCA/RF, Lyme's antibody. ESR ?PT/OT, may need ankle brace for ankle support of the right foot ?Avoid sitting with crossed legs, may use pillow under the right leg while sleeping ?Cannot get MRI due to AICD, unable to do myelogram due to CHANTALE/CKD. ?Fall precautions ?GI/DVT prophylaxis ?Further medical management per hospitalist recommendation ?Please call with questions if any ?Follow-up with neurology as outpatient in 6 weeks ?Thank you for allowing us to participate in patient's care and management. Code Visit Inpatient E&M: 23699 Init Hosp L3
--- NOTE | 2018-12-24 11:13 | CASEMGMT ---
Addendum entered by Keila Wright 12/24/18 11:31: 1120: Script for Out-pt therapy obtained and faxed to [facility] per pt request. Call placed to [facility] and she confirmed they received the fax. She was made aware pt will need [facility] [employer] transportation for his appts. She states they will contact pt to make arrangements for appts. Pt made aware. Original Note: RN CM SPINNER [employer]AME CM to room to meet with patient for initial transition planning/care coordination assessment. RN RIANA introduced self and role at [facility]. Pt voices understanding and consents to assessment at this time. Pt resting in bed in no distress at this time. Pt is A/O at this time and answers all questions appropriately. Care providers, pharmacy, and demographics verified/updated at this time. PCP: [facility]: Was seeing Dr Abimael Lacey--cardiology. Has appt with Dr Melissa Jun 6 as new patient. [facility] Insurance: [employer] Prescription Benefit: Yes Living Will/HPOA: [facility] does not have LW or HCPOA . Interested in more information but [facility] does not want to talk with SW at this time to complete paperwork. Provided information on advanced directives and given Social Service rac card with number to call if chooses in the future to utilize [facility] social work for advanced directive completion. LNOK: None. Parents are . No siblings and no children. Friend, Savanah, is Person to Notify. Living Arrangements: Lives alone in one-story apt. 1 step to enter. States is independent with ADL's, bills, medication mgmt, meals, and home mgmt tasks. Transportation: Does not drive. Utilizes variety of resources for transportation: [facility] [employer], [employer] for taxi passes, [employer], [employer], and a friend takes michael to grocery store one time a month. DME: [employer]. Pt states no need for further DME at this time. Does not use DME for ambulation. HHC/SNF: Has been to [facility] in the past in . No hx of HHC. States if he would ever need to go to SNF, he prefers [facility]. Discussed discharge planning with pt and therapy. Pt states he does not wish to go to a SNF, stating he prefers to return home. Discussed options of HHC and Out-pt therapy. Pt states he prefers to do Out-pt therapy @ [facility] but would like [facility] transportation for his appts. PT/OT evals pending. CM to follow for any recommendations. Pt wishes to return home and states has no concerns with going home at time of discharge. CM to follow for any discharge planning/needs. Pt voices no further concerns/needs at this time. Advised pt to ask for CM if any further questions/concerns/needs arise. Voices understanding. PLAN: Home with Out-pt PT/OT @ [facility]. Claudette HICKS RN CM
--- NOTE | 2018-12-24 12:44 | PN_ITS ---
<Sara Ayoub - Last Filed: 12/24/18 12:56> Patient Problems: Active and Suspected Problems Falls frequently (Acute) Right foot drop (Acute) Subjective: Patient seen and examined. Continues to have right foot drop/weakness. Denies other neurologic symptoms or focal deficits. Denies other current complaint. - Physical Exam General: Alert, Oriented x3, Cooperative HEENT: Atraumatic, PERRLA, EOMI, Normocephalic Oral: - - Poor dentition. Neck: Supple, No JVD, Negative Carotid Bruits Lungs: Clear to auscultation, Normal air movement Cardiovascular: Regular rate, Regular Rhythm, Normal S1, Normal S2, No murmurs Abdomen: Bowel Sounds Present, Soft, Non Tender, Non-Distended, Obese Extremities: No clubbing, No cyanosis, No edema, Capillary Refill Less than 3 Seconds Skin: No rashes, No breakdown, - - Chronic venous stasis skin changes bilateral lower extremities. Chronic left lower extremity medial casillas wound following prior skin graft. Mid frontal scalp cyst. Musculoskeletal: No Tenderness to Palpation of Joints or Extremities Neurological: Cranial nerves II-XII grossly intact, Neuro grossly intact Psych/Mental Status: Normal Affect, Appropriate Vital Signs Temp Pulse Resp BP Pulse Ox 99.3 F H 82 18 141/79 H 94 12/24/18 09:45 12/24/18 12:19 12/24/18 09:45 12/24/18 09:45 12/24/18 09:45 Oxygen Delivery Method Room Air Weight: 337 lb 11.971 oz Body Mass Index (BMI) 47.1 Finger Stick Blood Glucose 307 Intake and Output for Last 24 Hours 12/22/18 12/23/18 12/24/18 23:59 23:59 23:59 Intake Total 702 / 702 1123 / 1123 Balance 702 / 702 1123 / 1123 Laboratory Tests Past 24 Hrs 12/23/18 12/23/18 12/23/18 18:06 18:06 18:06 WBC 8.9 RBC 5.03 Hgb 12.6 L Hct 40.0 MCV 79.5 L MCH 25.0 L MCHC 31.5 L RDW 16.3 H RDW Differential 46.7 H Plt Count 222 MPV 9.9 Immature Gran % (Auto) 0.200 Neut % (Auto) 72.7 H Lymph % (Auto) 13.7 L [place] % (Auto) 8.0 Eos % (Auto) 4.8 Baso % (Auto) 0.6 Absolute Neuts (auto) 6.5 Absolute Lymphs (auto) 1.22 Total Counted Not Reportable ESR Sodium 140 Potassium 4.5 Chloride 113 H Carbon Dioxide 20.0 L Anion Gap 7 BUN 51 H Creatinine 2.60 H Estim Creat Clear Calc 33.16 Est GFR (MDRD) Af Amer 33 L Est GFR (MDRD) Non-Af 27 L BUN/Creatinine Ratio 19.6 Glucose 123 H Hemoglobin A1c Calcium 8.7 Magnesium 2.0 Troponin I < 0.015 Triglycerides Cholesterol LDL Cholesterol VLDL Cholesterol HDL Cholesterol TSH 1.09 Urine Color Urine Clarity Urine pH Ur Specific [place] Urine Protein Urine Glucose (UA) Urine Ketones Urine Occult Blood Urine Nitrite Urine Bilirubin Urine Urobilinogen Ur Leukocyte Esterase Urine RBC Urine WBC Ur Squamous Epith Cells Urine Bacteria Urine Mucus Ur Random Sodium Urine Creatinine Rheumatoid Factor 12/23/18 12/23/18 12/23/18 18:06 19:15 21:49 WBC RBC Hgb Hct MCV MCH MCHC RDW RDW Differential Plt Count MPV Immature Gran % (Auto) Neut % (Auto) Lymph % (Auto) [place] % (Auto) Eos % (Auto) Baso % (Auto) Absolute Neuts (auto) Absolute Lymphs (auto) Total Counted ESR Sodium Potassium Chloride Carbon Dioxide Anion Gap BUN Creatinine Estim Creat Clear Calc Est GFR (MDRD) Af Amer Est GFR (MDRD) Non-Af BUN/Creatinine Ratio Glucose Hemoglobin A1c 7.3 H Calcium Magnesium Troponin I Triglycerides Cholesterol LDL Cholesterol VLDL Cholesterol HDL Cholesterol TSH Urine Color Yellow Urine Clarity Cloudy Urine pH 7.0 Ur Specific [place] 1.010 Urine Protein 100 H Urine Glucose (UA) Normal Urine Ketones Negative Urine Occult Blood 250 H Urine Nitrite Positive H Urine Bilirubin Negative Urine Urobilinogen Normal Ur Leukocyte Esterase 500 H Urine RBC 5-10 SEEN Urine WBC 25-50 SEEN Ur Squamous Epith Cells 0 SEEN Urine Bacteria 1+ Urine Mucus 0 SEEN Ur Random Sodium Urine Creatinine 76.70 Rheumatoid Factor 12/23/18 12/24/18 12/24/18 21:49 06:30 06:30 WBC RBC Hgb Hct MCV MCH MCHC RDW RDW Differential Plt Count MPV Immature Gran % (Auto) Neut % (Auto) Lymph % (Auto) [place] % (Auto) Eos % (Auto) Baso % (Auto) Absolute Neuts (auto) Absolute Lymphs (auto) Total Counted ESR Pending Sodium Potassium Chloride Carbon Dioxide Anion Gap BUN Creatinine Estim Creat Clear Calc Est GFR (MDRD) Af Amer Est GFR (MDRD) Non-Af BUN/Creatinine Ratio Glucose Hemoglobin A1c Calcium Magnesium Troponin I Triglycerides Cholesterol LDL Cholesterol VLDL Cholesterol HDL Cholesterol TSH Urine Color Urine Clarity Urine pH Ur Specific [place] Urine Protein Urine Glucose (UA) Urine Ketones Urine Occult Blood Urine Nitrite Urine Bilirubin Urine Urobilinogen Ur Leukocyte Esterase Urine RBC Urine WBC Ur Squamous Epith Cells Urine Bacteria Urine Mucus Ur Random Sodium 61 Urine Creatinine Rheumatoid Factor Pending 12/24/18 12/24/18 06:33 06:33 WBC 8.4 RBC 4.70 Hgb 11.9 L Hct 37.5 L MCV 79.8 L MCH 25.3 L MCHC 31.7 L RDW 16.2 H RDW Differential 47.3 H Plt Count 208 MPV 9.8 Immature Gran % (Auto) 0.100 Neut % (Auto) 67.9 Lymph % (Auto) 16.8 L [place] % (Auto) 10.1 H Eos % (Auto) 4.7 Baso % (Auto) 0.4 Absolute Neuts (auto) 5.7 Absolute Lymphs (auto) 1.41 Total Counted Not Reportable ESR Sodium 145 Potassium 3.7 Chloride 116 H Carbon Dioxide 22.0 Anion Gap 7 BUN 43 H Creatinine 2.42 H Estim Creat Clear Calc 34.57 Est GFR (MDRD) Af Amer 35 L Est GFR (MDRD) Non-Af 29 L BUN/Creatinine Ratio 17.8 Glucose 113 H Hemoglobin A1c Calcium 8.4 L Magnesium Troponin I Triglycerides 107 Cholesterol 119 LDL Cholesterol 69 VLDL Cholesterol 21 HDL Cholesterol 29 L TSH Urine Color Urine Clarity Urine pH Ur Specific [place] Urine Protein Urine Glucose (UA) Urine Ketones Urine Occult Blood Urine Nitrite Urine Bilirubin Urine Urobilinogen Ur Leukocyte Esterase Urine RBC Urine WBC Ur Squamous Epith Cells Urine Bacteria Urine Mucus Ur Random Sodium Urine Creatinine Rheumatoid Factor POC Glucose 12/24/18 12/23/18 07:07 22:09 POC Glucose 109 96 Medical Necessity - Tobacco Use Smoking Status: Never smoker Tobacco Use: Non-smoker Assessment/Plan All Active Problems Falls frequently (Acute) Right foot drop (Acute) Hyperkalemia (Acute) Hyperosmolar non-ketotic state in patient with type 2 diabetes mellitus (Acute) CHANTALE (acute kidney injury) (Acute) 1. New right lower extremity foot drop with associated debility/frequent falls- neurology consulted. Unable to obtain MRI due to AICD. Brain CT without acute infarct. Benign frontal soft tissue lesion, suspect pilar cyst. Cervical spine CT with no acute fracture or subluxation. Mild spondylosis most severe at C6- C7. Lumbar spine CT showed degenerative disc and joint changes. Most severe findings are at L4-L5 with disc narrowing with a posterior annulus bulge, general spinal stenosis narrowing left greater than right and left foraminal narrowing. Neurology recommending spine surgery consult which can be completed as outpatient. EMG in 3 to 4 weeks as outpatient. YEIMY/ANCA/RF/Lyme's antibody and ESR ordered. PT/OT. Follow-up with neurology in 6 weeks. Further disposition pending PT evaluation. Fall precautions. Right foot splint. 2. Acute kidney injury on chronic kidney disease stage III- nephrology consulted. Renal US pending. Suspect CHANTALE due to diuretic regimen. Hold Bumex, STACY inhibitor. Trend BMP. 3. Primary idiopathic dilated cardiomyopathy status post AICD-diuretic regimen o n hold as noted above. 4. 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 Wound RN consult. Recommend outpatient follow-up with wound center. 5. Intertrigo-Nystatin powder. 6. Incidental osteochondral lesions medial patellar dome and tiny bony density- outpatient follow-up with orthopedic. Orthopedics contacted on admission and did not feel acute or related to #1. 7. Hypertension-stable, continue amlodipine, carvedilol regimen. Lisinopril and Bumex regimen on hold. 8. Hyperlipidemia-not on statin regimen. Fasting lipid panel within normal limits. 9. Type 2 diabetes mellitus-oral regimen on hold. Continue Accu-Cheks AC at bedtime with sliding scale insulin. 10. Morbid obesity-encourage diet lifestyle modifications. Nutrition consult. 11. RAQUEL-noncompliant with CPAP. DVT prophylaxis-heparin, SCDs. This patient was seen by SRAVANTHI Howard under the supervision of Dr. Erwin. <Amish Erwin - Last Filed: 12/24/18 16:21> Subjective: Patient was seen along with neurologist Dr. Guerrero. Patient felt sudden right leg giving out got unsteady and fell on his buttocks. Patient has right foot drop and cannot dorsiflex. Patient denies any history of stroke, neurological disease including MS or seizure. - Physical Exam General: Alert, Oriented x3, Cooperative HEENT: Atraumatic, PERRLA, EOMI, Normocephalic, - - On gross loss of field of vision on 1-1 visual confrontation test Oral: - Neck: Supple, No JVD, Negative Carotid Bruits Lungs: Clear to auscultation, Normal air movement Cardiovascular: Regular rate, No murmurs, - - Nonischemic cardiomyopathy status post AICD. Abdomen: Bowel Sounds Present, Soft, Non Tender, Non-Distended, Guarding Extremities: No edema, Capillary Refill Less than 3 Seconds Skin: No rashes, No breakdown, - - Chronic venous stasis skin changes bilateral lower extremities. Chronic left lower extremity medial casillas wound following prior skin graft. Mid frontal scalp cyst. Chronic venous dermatitis. Musculoskeletal: No Tenderness to Palpation of Joints or Extremities, Arthritic Changes Neurological: Cranial nerves II-XII grossly intact, Neuro grossly intact, Sensory exam intact to light touch and pain, - - Denies any change in sensation, numbness or tingling. Plantar reflex downgoing both feet. Right foot dorsiflexion and eversion weakness, 3/5. Plantar flexion is normal. Power 5/5 at bilateral hip and knee joints. Bilateral upper extremity at major joints. Psych/Mental Status: Normal Affect, Appropriate Vital Signs Temp Pulse Resp BP Pulse Ox 98.9 F 77 16 164/90 H 97 12/24/18 15:58 12/24/18 15:58 12/24/18 15:58 12/24/18 15:58 12/24/18 15:58 Oxygen Delivery Method Room Air Weight: 337 lb 11.971 oz Body Mass Index (BMI) 47.1 Finger Stick Blood Glucose 307 Intake and Output for Last 24 Hours 12/22/18 12/23/18 12/24/18 23:59 23:59 23:59 Intake Total 702 / 702 2773 / 2773 Output Total 450 / 450 Balance 702 / 702 2323 / 2323 Laboratory Tests Past 24 Hrs 12/23/18 12/23/18 12/23/18 18:06 18:06 18:06 WBC 8.9 RBC 5.03 Hgb 12.6 L Hct 40.0 MCV 79.5 L MCH 25.0 L MCHC 31.5 L RDW 16.3 H RDW Differential 46.7 H Plt Count 222 MPV 9.9 Immature Gran % (Auto) 0.200 Neut % (Auto) 72.7 H Lymph % (Auto) 13.7 L [place] % (Auto) 8.0 Eos % (Auto) 4.8 Baso % (Auto) 0.6 Absolute Neuts (auto) 6.5 Absolute Lymphs (auto) 1.22 Total Counted Not Reportable ESR Sodium 140 Potassium 4.5 Chloride 113 H Carbon Dioxide 20.0 L Anion Gap 7 BUN 51 H Creatinine 2.60 H Estim Creat Clear Calc 33.16 Est GFR (MDRD) Af Amer 33 L Est GFR (MDRD) Non-Af 27 L BUN/Creatinine Ratio 19.6 Glucose 123 H Hemoglobin A1c Calcium 8.7 Magnesium 2.0 Troponin I < 0.015 Triglycerides Cholesterol LDL Cholesterol VLDL Cholesterol HDL Cholesterol TSH 1.09 Urine Color Urine Clarity Urine pH Ur Specific [place] Urine Protein Urine Glucose (UA) Urine Ketones Urine Occult Blood Urine Nitrite Urine Bilirubin Urine Urobilinogen Ur Leukocyte Esterase Urine RBC Urine WBC Ur Squamous Epith Cells Urine Bacteria Urine Mucus U Random Total Protein Ur Random Sodium Urine Creatinine Rheumatoid Factor YEIMY Screen c-ANCA Antibody p-ANCA Antibody AVANI-1 Antibody SS-A/Ro IgG Antibody SS-B/La IgG Antibody Sm (Pedraza) Antibody SECURITY ENGINEER Antibody Scl-70 Scleroderma Ab Double Strand DNA Ab Centromere B Antibody Lyme Total Antibody 12/23/18 12/23/18 12/23/18 18:06 19:15 21:49 WBC RBC Hgb Hct MCV MCH MCHC RDW RDW Differential Plt Count MPV Immature Gran % (Auto) Neut % (Auto) Lymph % (Auto) [place] % (Auto) Eos % (Auto) Baso % (Auto) Absolute Neuts (auto) Absolute Lymphs (auto) Total Counted ESR Sodium Potassium Chloride Carbon Dioxide Anion Gap BUN Creatinine Estim Creat Clear Calc Est GFR (MDRD) Af Amer Est GFR (MDRD) Non-Af BUN/Creatinine Ratio Glucose Hemoglobin A1c 7.3 H Calcium Magnesium Troponin I Triglycerides Cholesterol LDL Cholesterol VLDL Cholesterol HDL Cholesterol TSH Urine Color Yellow Urine Clarity Cloudy Urine pH 7.0 Ur Specific [place] 1.010 Urine Protein 100 H Urine Glucose (UA) Normal Urine Ketones Negative Urine Occult Blood 250 H Urine Nitrite Positive H Urine Bilirubin Negative Urine Urobilinogen Normal Ur Leukocyte Esterase 500 H Urine RBC 5-10 SEEN Urine WBC 25-50 SEEN Ur Squamous Epith Cells 0 SEEN Urine Bacteria 1+ Urine Mucus 0 SEEN U Random Total Protein Ur Random Sodium Urine Creatinine 76.70 Rheumatoid Factor YEIMY Screen c-ANCA Antibody p-ANCA Antibody AVANI-1 Antibody SS-A/Ro IgG Antibody SS-B/La IgG Antibody Sm (Pedraza) Antibody SECURITY ENGINEER Antibody Scl-70 Scleroderma Ab Double Strand DNA Ab Centromere B Antibody Lyme Total Antibody 12/23/18 12/24/18 12/24/18 21:49 06:30 06:30 WBC RBC Hgb Hct MCV MCH MCHC RDW RDW Differential Plt Count MPV Immature Gran % (Auto) Neut % (Auto) Lymph % (Auto) [place] % (Auto) Eos % (Auto) Baso % (Auto) Absolute Neuts (auto) Absolute Lymphs (auto) Total Counted ESR 71 H Sodium Potassium Chloride Carbon Dioxide Anion Gap BUN Creatinine Estim Creat Clear Calc Est GFR (MDRD) Af Amer Est GFR (MDRD) Non-Af BUN/Creatinine Ratio Glucose Hemoglobin A1c Calcium Magnesium Troponin I Triglycerides Cholesterol LDL Cholesterol VLDL Cholesterol HDL Cholesterol TSH Urine Color Urine Clarity Urine pH Ur Specific [place] Urine Protein Urine Glucose (UA) Urine Ketones Urine Occult Blood Urine Nitrite Urine Bilirubin Urine Urobilinogen Ur Leukocyte Esterase Urine RBC Urine WBC Ur Squamous Epith Cells Urine Bacteria Urine Mucus U Random Total Protein Ur Random Sodium 61 Urine Creatinine Rheumatoid Factor < 10.0 YEIMY Screen c-ANCA Antibody p-ANCA Antibody AVANI-1 Antibody SS-A/Ro IgG Antibody SS-B/La IgG Antibody Sm (Pedraza) Antibody SECURITY ENGINEER Antibody Scl-70 Scleroderma Ab Double Strand DNA Ab Centromere B Antibody Lyme Total Antibody 12/24/18 12/24/18 12/24/18 06:33 06:33 11:59 WBC 8.4 RBC 4.70 Hgb 11.9 L Hct 37.5 L MCV 79.8 L MCH 25.3 L MCHC 31.7 L RDW 16.2 H RDW Differential 47.3 H Plt Count 208 MPV 9.8 Immature Gran % (Auto) 0.100 Neut % (Auto) 67.9 Lymph % (Auto) 16.8 L [place] % (Auto) 10.1 H Eos % (Auto) 4.7 Baso % (Auto) 0.4 Absolute Neuts (auto) 5.7 Absolute Lymphs (auto) 1.41 Total Counted Not Reportable ESR Sodium 145 Potassium 3.7 Chloride 116 H Carbon Dioxide 22.0 Anion Gap 7 BUN 43 H Creatinine 2.42 H Estim Creat Clear Calc 34.57 Est GFR (MDRD) Af Amer 35 L Est GFR (MDRD) Non-Af 29 L BUN/Creatinine Ratio 17.8 Glucose 113 H Hemoglobin A1c Calcium 8.4 L Magnesium Troponin I Triglycerides 107 Cholesterol 119 LDL Cholesterol 69 VLDL Cholesterol 21 HDL Cholesterol 29 L TSH Urine Color Urine Clarity Urine pH Ur Specific [place] Urine Protein Urine Glucose (UA) Urine Ketones Urine Occult Blood Urine Nitrite Urine Bilirubin Urine Urobilinogen Ur Leukocyte Esterase Urine RBC Urine WBC Ur Squamous Epith Cells Urine Bacteria Urine Mucus U Random Total Protein 34.5 H Ur Random Sodium 80 Urine Creatinine 60.50 Rheumatoid Factor YEIMY Screen c-ANCA Antibody p-ANCA Antibody AVANI-1 Antibody SS-A/Ro IgG Antibody SS-B/La IgG Antibody Sm (Pedraza) Antibody SECURITY ENGINEER Antibody Scl-70 Scleroderma Ab Double Strand DNA Ab Centromere B Antibody Lyme Total Antibody 12/24/18 12/24/18 13:08 13:08 WBC RBC Hgb Hct MCV MCH MCHC RDW RDW Differential Plt Count MPV Immature Gran % (Auto) Neut % (Auto) Lymph % (Auto) [place] % (Auto) Eos % (Auto) Baso % (Auto) Absolute Neuts (auto) Absolute Lymphs (auto) Total Counted ESR Sodium Potassium Chloride Carbon Dioxide Anion Gap BUN Creatinine Estim Creat Clear Calc Est GFR (MDRD) Af Amer Est GFR (MDRD) Non-Af BUN/Creatinine Ratio Glucose Hemoglobin A1c Calcium Magnesium Troponin I Triglycerides Cholesterol LDL Cholesterol VLDL Cholesterol HDL Cholesterol TSH Urine Color Urine Clarity Urine pH Ur Specific [place] Urine Protein Urine Glucose (UA) Urine Ketones Urine Occult Blood Urine Nitrite Urine Bilirubin Urine Urobilinogen Ur Leukocyte Esterase Urine RBC Urine WBC Ur Squamous Epith Cells Urine Bacteria Urine Mucus U Random Total Protein Ur Random Sodium Urine Creatinine Rheumatoid Factor YEIMY Screen Pending c-ANCA Antibody Pending p-ANCA Antibody Pending AVANI-1 Antibody Pending SS-A/Ro IgG Antibody Pending SS-B/La IgG Antibody Pending Sm (Pedraza) Antibody Pending SECURITY ENGINEER Antibody Pending Scl-70 Scleroderma Ab Pending Double Strand DNA Ab Pending Centromere B Antibody Pending Lyme Total Antibody Pending POC Glucose 12/24/18 12/24/18 12/23/18 11:07 07:07 22:09 POC Glucose 107 109 96 Assessment/Plan This patient was seen in conjunction with Sara CHADWICK. I have independently interviewed and examined the patient and reviewed pertinent history, examination findings, laboratory and plan of management. I have reviewed the note and agree with the documented findings with the few additional points. In brief, the patient is 58-year-old gentleman with multiple comorbidities including idiopathic dilated cardiomyopathy, nonischemic status post AICD, CKD stage III, chronic venous sufficiency with chronic left lower extremity distal wound with history of skin graft was admitted with right leg giving out, right foot drop resulting into fall. Neurologist was consulted. Patient cannot have MRI because of AICD. She had extensive imaging including CT head which showed subcutaneous soft tissue over right frontal convexity, measuring 2.1 x 1.5 x 1.[address] with no acute fracture or subluxation. Mild spondylosis most severe at C6-C7. Lumbar spine CT showed degenerative disc and joint changes with the most severe findings are at L4-L5 with disc narrowing with a posterior annulus bulge, general spinal stenosis narrowing left greater than right and left foraminal narrowing. Adjust further recommended surgery consult for degenerative changes of CT spine and lumbar spine. EMG/NCS was recommended after 3 to 4 weeks as an outpatient. Immune antibodies were ordered. PT and OT and right leg brace for foot drop. Patient other comorbidities including hypertension, dyslipidemia, type 2 diabetes mellitus but being taken care as mentioned above. I have discussed my assessment with Sara CHADWICK and orders have been reviewed. Clinical Impression(s) from Imaging Studies Brain CT 12/23/18 17:53 IMPRESSION: Significant central and cortical involutional changes for the patient's age and should be correlated clinically Mild old deep white matter and basal ganglia small vessel ischemic changes Indeterminate most likely benign calcified lesion overlying the right frontal convexity within the subcutaneous soft tissues measuring 2.1 x 1.5 x 1.2 cm this should be correlated clinically and with physical exam findings and prior imaging Tibia/Fibula X-Ray 12/23/18 17:54 IMPRESSION: Soft tissue edema Osteophyte at the Achilles tendon insertion Likely osteochondral lesions medial talar dome and tiny bony density most likely small joint mouse less likely osteophyte within the medial tibiotalar compartment, this can be further evaluated with CT or MRI Knee X-Ray 12/23/18 18:18 IMPRESSION: Superficial soft tissue swelling without underlying fracture, dislocation or a substantial joint effusion. Cervical Spine CT 12/23/18 20:34 IMPRESSION: No evidence for acute fracture or subluxation. Mild spondylosis most severe at C6-[address] 12/23/18 20:34 IMPRESSION: Normal alignment of the lumbar spine without acute fracture deformity. Degenerative disc and joint changes as stated above. The most severe findings are at L4-5 with disc narrowing with a posterior annulus bulge partially calcified on the left and moderate facet arthrosis and posterior hypertrophy causing borderline general spinal stenosis narrowing of the lateral recesses, left greater than right and left foraminal narrowing. Code Visit Inpatient E&M: 94459 Subs Hosp L3
[2018-12-24 12:46] LABS: Rheumatoid Factor < 10.0 IU/mL (<15)
[2018-12-24 12:51] LABS: Erythrocyte Sedimentation Rate 71 mm/hr (0-20)
[2018-12-24 13:06] LABS: Bedside Glucose 107 mg/dL (70-110)
--- NOTE | 2018-12-24 13:08 | CASEMGMT ---
KAYLI MAYERS NOTE: Per therapy, pt will need walker. Pt states no preference of DME company. Script for FWW obtained and faxed to [facility]. Call placed to [facility] and they were made aware plans are for pt to discharge tomorrow 12/25/18. They stated walker will be delivered today to pt's room. Claudette HICKS RN CM
--- NOTE | 2018-12-24 13:09 | PCM.CONS.R ---
Consultation - Renal 12/24/18 PCP/ Referring MD: Requesting physician: Carole Roberts Primary care physician: Juany Wylie Reason for Consultation:: CHANTALE on CKD stage 3 - History of Present Illness History of Present Illness: The patient is a 58 year old morbidly obese M with PMH for Primary idiopathic dilated cardiomyopathy s/p AICD, CKD stage III, RAQUEL noncompliance with CPAP, HTN, HLD, Diabetes mellitus type II, Morbid Obesity, Chronic LLE distal leg wound who presents to the [facility] ED on 12/23/18 with history of serial falls over the last 48 hours, both times while walking out to the mailbox. STates his right lower extremity leg gave out with foot drop. He denies any other focal neurological changes and states he has felt well otherwise. Appetite was good. Labs in ED: CBC w/ WBC 8.9, Hgb 12.6, Plts 222. BUN/Cr elevated at 51/2.60. He was on bumex and lisinopril at home .trop < 0.015, EKG without acute evidence of ischemia, CT head w/ significant central and cortical involutional changes for the patient's age, mild old deep white matter and basal ganglia small vessel ischemic changes. Renal US pending. Creatinine improve to 2.4 today with iv hydration. Bumex and lisinopril were discontinued on admission. - Allergies Allergies: Allergies No Known Allergies Allergy (Verified 12/23/18 17:28) - Current Medications Current Medications: Current Medications Acetaminophen (Tylenol) 650 mg PO Q6H PRN PRN PRN Reason: Non-cardiac pain (mod-severe) Hydrocodone Bitart/Acetaminophen (Mascot 5mg-325mg) 1 - 2 tablet PO Q6H PRN PRN PRN Reason: MOD-SEVERE PAIN (4-1010) Al Hydroxide/Mg Hydroxide (Mylanta Ii) 15 - 30 ml PO Q4H PRN PRN PRN Reason: INDIGESTION Albuterol Sulfate (Ventolin Aerosols) 2.5 mg INHALATION Q2H PRN PRN PRN Reason: dyspnea, wheezing [facility]oprim) [facility] Last Admin: 12/24/18 08:16 Dose: 150 mg Amlodipine Besylate (Norvasc) 10 mg PO DAILY [facility] Aspirin (Aspirin, Baby) 81 mg PO DAILY@0800 [facility] Last Admin: 12/24/18 08:16 Dose: 81 mg Atorvastatin Calcium (Lipitor) 80 mg PO QHS [facility] Last Admin: 12/23/18 22:17 Dose: 80 mg Carvedilol (Coreg) 37.5 mg PO BID [facility] Dextrose (D50w Syringe) 0 gm IV X1 PRN; Protocol PRN Reason: Hypoglycemia Glucagon () 1 mg IM .X1 PRN PRN Reason: Hypoglycemia Heparin Sodium (Porcine) (Heparin Na) 5,000 unit SC Q12 [facility] Last Admin: 12/24/18 08:23 Dose: 5,000 unit Hydralazine HCl (Apresoline Iv) 5 mg IV Q30M PRN PRN Reason: sbp > 220/120 Sodium Chloride () 1,000 mls @ 125 mls/hr IV .Q8H [facility] Last Admin: 12/24/18 05:44 Dose: 125 mls/hr Ceftriaxone Sodium (Rocephin) 1 gm in 50 mls @ 100 mls/hr IV Q24 [facility] Last Admin: 12/24/18 08:23 Dose: 100 mls/hr Insulin Human Lispro (Humalog Kwikpen (Bkc)) 0 unit SQ ACHS [facility]; Protocol Last Admin: 12/24/18 11:09 Dose: Not Given Labetalol HCl (Trandate) 10 mg IV Q10M PRN PRN Reason: MAINTAIN BP < 220/120 Stop: 12/24/18 20:35 Melatonin (Melatonin) 3 mg PO QHS PRN PRN PRN Reason: INSOMNIA Morphine Sulfate () 1 - 2 mg IV Q4H PRN PRN PRN Reason: PAIN Nystatin (Mycostatin Powder) 1 applic TOPICAL TID [facility]; Protocol Last Admin: 12/24/18 05:44 Dose: 1 applicatio Ondansetron HCl (Zofran) 4 mg IV Q8H PRN PRN PRN Reason: NAUSEA/VOMITING Sodium Chloride () 5 - 15 ml IV UD PRN PRN Reason: SALINE FLUSH Last Admin: 12/23/18 22:23 Dose: 10 ml - Past Medical History Past Medical History (Chronic Problems): Chronic Problems Wound of lower extremity (Chronic) CKD (chronic kidney disease), stage III (Chronic) Morbid obesity (Chronic) HTN (hypertension) (Chronic) HLD (hyperlipidemia) (Chronic) RAQUEL (obstructive sleep apnea) (Chronic) Diabetes mellitus, type II (Chronic) Primary idiopathic dilated cardiomyopathy (Chronic) Mitral valve regurgitation (Chronic) CKD (chronic kidney disease), stage II (Chronic) - Past Surgical History Surgical History: - - Tonsillectomy, left lower extremity debridement of chronic wound, AICD placement, appendectomy. - Social History Marital Status: Single Smoking Status: Never smoker Alcohol: Occasional Drugs: None - Family History Maternal History Items: Diabetes, Renal Disease Paternal History Items: Diabetes, Heart Disease, Hypertension Review of Systems Constitutional: Denies: Anorexia, Chills, Fever, Weakness, Fatigue HEENT: Denies: Head Aches Cardiovascular: Reports: Edema. Denies: Chest Pain, Heaviness, Light Headedness, Syncope Respiratory: Denies: Cough, Shortness of Breath Gastrointestinal: Denies: Abdominal Pain, Constipation, Diarrhea, Nausea, Vomiting Genitourinary: Denies: Dysuria, Hematuria Musculoskeletal: Reports: - - Right leg weakness with foot drop Skin: Denies: Rash Neurological: Denies: Balance problems, Tremor, Seizures Psychiatric: Denies: Anxiety, Depression Hematologic/ Lymphatic: Denies: Anemia, Hx of blood clot Patient Problems: Active and Suspected Problems Falls frequently (Acute) Right foot drop (Acute) - Physical Exam General: Alert, Oriented x3, Cooperative, No apparent distress, - - Morbidly obese HEENT: PERRLA, EOMI Oral: Moist Mucosa Neck: Supple Lungs: Clear to auscultation Cardiovascular: Regular rate Abdomen: Bowel Sounds Present, Soft, Non Tender, Non-Distended Extremities: No edema Psych/Mental Status: Normal Affect, Appropriate, Alert and oriented to time, place, person, mood and affect Vital Signs Temp Pulse Resp BP Pulse Ox 99.3 F H 82 18 141/79 H 94 12/24/18 09:45 12/24/18 12:19 12/24/18 09:45 12/24/18 09:45 12/24/18 09:45 Oxygen Delivery Method Room Air Weight: 153.2 kg Body Mass Index (BMI) 47.1 Finger Stick Blood Glucose 307 Intake and Output for Last 24 Hours 12/22/18 12/23/18 12/24/18 23:59 23:59 23:59 Intake Total 702 / 702 1123 / 1123 Balance 702 / 702 1123 / 1123 Laboratory Tests Past 24 Hrs 12/23/18 12/23/18 12/23/18 18:06 18:06 18:06 WBC 8.9 RBC 5.03 Hgb 12.6 L Hct 40.0 MCV 79.5 L MCH 25.0 L MCHC 31.5 L RDW 16.3 H RDW Differential 46.7 H Plt Count 222 MPV 9.9 Immature Gran % (Auto) 0.200 Neut % (Auto) 72.7 H Lymph % (Auto) 13.7 L [place] % (Auto) 8.0 Eos % (Auto) 4.8 Baso % (Auto) 0.6 Absolute Neuts (auto) 6.5 Absolute Lymphs (auto) 1.22 Total Counted Not Reportable ESR Sodium 140 Potassium 4.5 Chloride 113 H Carbon Dioxide 20.0 L Anion Gap 7 BUN 51 H Creatinine 2.60 H Estim Creat Clear Calc 33.16 Est GFR (MDRD) Af Amer 33 L Est GFR (MDRD) Non-Af 27 L BUN/Creatinine Ratio 19.6 Glucose 123 H Hemoglobin A1c Calcium 8.7 Magnesium 2.0 Troponin I < 0.015 Triglycerides Cholesterol LDL Cholesterol VLDL Cholesterol HDL Cholesterol TSH 1.09 Urine Color Urine Clarity Urine pH Ur Specific [place] Urine Protein Urine Glucose (UA) Urine Ketones Urine Occult Blood Urine Nitrite Urine Bilirubin Urine Urobilinogen Ur Leukocyte Esterase Urine RBC Urine WBC Ur Squamous Epith Cells Urine Bacteria Urine Mucus Ur Random Sodium Urine Creatinine Rheumatoid Factor 12/23/18 12/23/18 12/23/18 18:06 19:15 21:49 WBC RBC Hgb Hct MCV MCH MCHC RDW RDW Differential Plt Count MPV Immature Gran % (Auto) Neut % (Auto) Lymph % (Auto) [place] % (Auto) Eos % (Auto) Baso % (Auto) Absolute Neuts (auto) Absolute Lymphs (auto) Total Counted ESR Sodium Potassium Chloride Carbon Dioxide Anion Gap BUN Creatinine Estim Creat Clear Calc Est GFR (MDRD) Af Amer Est GFR (MDRD) Non-Af BUN/Creatinine Ratio Glucose Hemoglobin A1c 7.3 H Calcium Magnesium Troponin I Triglycerides Cholesterol LDL Cholesterol VLDL Cholesterol HDL Cholesterol TSH Urine Color Yellow Urine Clarity Cloudy Urine pH 7.0 Ur Specific [place] 1.010 Urine Protein 100 H Urine Glucose (UA) Normal Urine Ketones Negative Urine Occult Blood 250 H Urine Nitrite Positive H Urine Bilirubin Negative Urine Urobilinogen Normal Ur Leukocyte Esterase 500 H Urine RBC 5-10 SEEN Urine WBC 25-50 SEEN Ur Squamous Epith Cells 0 SEEN Urine Bacteria 1+ Urine Mucus 0 SEEN Ur Random Sodium Urine Creatinine 76.70 Rheumatoid Factor 12/23/18 12/24/18 12/24/18 21:49 06:30 06:30 WBC RBC Hgb Hct MCV MCH MCHC RDW RDW Differential Plt Count MPV Immature Gran % (Auto) Neut % (Auto) Lymph % (Auto) [place] % (Auto) Eos % (Auto) Baso % (Auto) Absolute Neuts (auto) Absolute Lymphs (auto) Total Counted ESR 71 H Sodium Potassium Chloride Carbon Dioxide Anion Gap BUN Creatinine Estim Creat Clear Calc Est GFR (MDRD) Af Amer Est GFR (MDRD) Non-Af BUN/Creatinine Ratio Glucose Hemoglobin A1c Calcium Magnesium Troponin I Triglycerides Cholesterol LDL Cholesterol VLDL Cholesterol HDL Cholesterol TSH Urine Color Urine Clarity Urine pH Ur Specific [place] Urine Protein Urine Glucose (UA) Urine Ketones Urine Occult Blood Urine Nitrite Urine Bilirubin Urine Urobilinogen Ur Leukocyte Esterase Urine RBC Urine WBC Ur Squamous Epith Cells Urine Bacteria Urine Mucus Ur Random Sodium 61 Urine Creatinine Rheumatoid Factor < 10.0 12/24/18 12/24/18 06:33 06:33 WBC 8.4 RBC 4.70 Hgb 11.9 L Hct 37.5 L MCV 79.8 L MCH 25.3 L MCHC 31.7 L RDW 16.2 H RDW Differential 47.3 H Plt Count 208 MPV 9.8 Immature Gran % (Auto) 0.100 Neut % (Auto) 67.9 Lymph % (Auto) 16.8 L [place] % (Auto) 10.1 H Eos % (Auto) 4.7 Baso % (Auto) 0.4 Absolute Neuts (auto) 5.7 Absolute Lymphs (auto) 1.41 Total Counted Not Reportable ESR Sodium 145 Potassium 3.7 Chloride 116 H Carbon Dioxide 22.0 Anion Gap 7 BUN 43 H Creatinine 2.42 H Estim Creat Clear Calc 34.57 Est GFR (MDRD) Af Amer 35 L Est GFR (MDRD) Non-Af 29 L BUN/Creatinine Ratio 17.8 Glucose 113 H Hemoglobin A1c Calcium 8.4 L Magnesium Troponin I Triglycerides 107 Cholesterol 119 LDL Cholesterol 69 VLDL Cholesterol 21 HDL Cholesterol 29 L TSH Urine Color Urine Clarity Urine pH Ur Specific [place] Urine Protein Urine Glucose (UA) Urine Ketones Urine Occult Blood Urine Nitrite Urine Bilirubin Urine Urobilinogen Ur Leukocyte Esterase Urine RBC Urine WBC Ur Squamous Epith Cells Urine Bacteria Urine Mucus Ur Random Sodium Urine Creatinine Rheumatoid Factor POC Glucose 12/24/18 12/24/18 12/23/18 11:07 07:07 22:09 POC Glucose 107 109 96 Clinical Impression(s) from Imaging Studies Brain CT 12/23/18 17:53 IMPRESSION: Significant central and cortical involutional changes for the patient's age and should be correlated clinically Mild old deep white matter and basal ganglia small vessel ischemic changes Indeterminate most likely benign calcified lesion overlying the right frontal convexity within the subcutaneous soft tissues measuring 2.1 x 1.5 x 1.2 cm this should be correlated clinically and with physical exam findings and prior imaging Electronically Signed: Paul Valdez at 18:57 EDT Tel , Service support , Tibia/Fibula X-Ray 12/23/18 17:54 IMPRESSION: Soft tissue edema Osteophyte at the Achilles tendon insertion Likely osteochondral lesions medial talar dome and tiny bony density most likely small joint mouse less likely osteophyte within the medial tibiotalar compartment, this can be further evaluated with CT or MRI Electronically Signed: Paul Valdez at 18:41 EDT Tel , Service support , Knee X-Ray 12/23/18 18:18 IMPRESSION: Superficial soft tissue swelling without underlying fracture, dislocation or a substantial joint effusion. Electronically Signed: Ethel Mejia MD at 18:40 EDT , Service support , Cervical Spine CT 12/23/18 20:34 IMPRESSION: No evidence for acute fracture or subluxation. Mild spondylosis most severe at C6-7 Electronically Signed: Robert Rivera MD at 21:24 EDT , Service support , Lumbar Spine CT 12/23/18 20:34 IMPRESSION: Normal alignment of the lumbar spine without acute fracture deformity. Degenerative disc and joint changes as stated above. The most severe findings are at L4-5 with disc narrowing with a posterior annulus bulge partially calcified on the left and moderate facet arthrosis and posterior hypertrophy causing borderline general spinal stenosis narrowing of the lateral recesses, left greater than right and left foraminal narrowing. Electronically Signed: Ethel Mejia MD at 21:58 EDT , Service support , Assessment/Plan All Active Problems Falls frequently (Acute) Right foot drop (Acute) Hyperkalemia (Acute) Hyperosmolar non-ketotic state in patient with type 2 diabetes mellitus (Acute) CHANTALE (acute kidney injury) (Acute) 1. CHANTALE on chronic kidney disease baseline creatinine appears to be at 1.1-1.5 back in 2015,2016 now at 2.6 on admission to improved to 2.4 today after IV hydration initiated. Acute component likely due to prerenal event on Bumex and STACY inhibitor both discontinued on admission. Suspect underlying diabetic nephropathy. Family history significant for diabetic nephropathy. Continue to hold off on Bumex and STACY inhibitor therapy for now until renal function back to baseline. 2. Foot drop with frequent falls at home. Refusing rehab. Follow-up with PCP. 3. DM type II follow-up with PCP. 4. Hypertension blood pressure stable. 5. Await kidney ultrasound. Check UA for proteinuria. 6. Follow-up in the office with me in 2 to 3 weeks with renal panel.
--- NOTE | 2018-12-24 13:13 | CON.PCM_ITS ---
Consultation - Renal 12/24/18 PCP/ Referring MD: Requesting physician: Carole Roberts Primary care physician: Juany Wylie Reason for Consultation:: CHANTALE on CKD stage 3 - History of Present Illness History of Present Illness: The patient is a 58 year old morbidly obese M with PMH for Primary idiopathic dilated cardiomyopathy s/p AICD, CKD stage III, RAQUEL noncompliance with CPAP, HTN, HLD, Diabetes mellitus type II, Morbid Obesity, Chronic LLE distal leg wound who presents to the [facility] ED on 12/23/18 with history of serial falls over the last 48 hours, both times while walking out to the mailbox. STates his right lower extremity leg gave out with foot drop. He denies any other focal neurological changes and states he has felt well otherwise. Appetite was good. Labs in ED: CBC w/ WBC 8.9, Hgb 12.6, Plts 222. BUN/Cr elevated at 51/2.60. He was on bumex and lisinopril at home .trop < 0.015, EKG without acute evidence of ischemia, CT head w/ significant central and cortical involutional changes for the patient's age, mild old deep white matter and basal ganglia small vessel ischemic changes. Renal US pending. Creatinine improve to 2.4 today with iv hydration. Bumex and lisinopril were discontinued on admission. - Allergies Allergies: Allergies No Known Allergies Allergy (Verified 12/23/18 17:28) - Current Medications Current Medications: Current Medications Acetaminophen (Tylenol) 650 mg PO Q6H PRN PRN PRN Reason: Non-cardiac pain (mod-severe) Hydrocodone Bitart/Acetaminophen ([place] 5mg-325mg) 1 - 2 tablet PO Q6H PRN PRN PRN Reason: MOD-SEVERE PAIN (4-1010) Al Hydroxide/Mg Hydroxide (Mylanta Ii) 15 - 30 ml PO Q4H PRN PRN PRN Reason: INDIGESTION Albuterol Sulfate (Ventolin Aerosols) 2.5 mg INHALATION Q2H PRN PRN PRN Reason: dyspnea, wheezing [facility]oprim) [facility] Last Admin: 12/24/18 08:16 Dose: 150 mg Amlodipine Besylate (Norvasc) 10 mg PO DAILY [facility] Aspirin (Aspirin, Baby) 81 mg PO DAILY@0800 [facility] Last Admin: 12/24/18 08:16 Dose: 81 mg Atorvastatin Calcium (Lipitor) 80 mg PO QHS [facility] Last Admin: 12/23/18 22:17 Dose: 80 mg Carvedilol (Coreg) 37.5 mg PO BID [facility] Dextrose (D50w Syringe) 0 gm IV X1 PRN; Protocol PRN Reason: Hypoglycemia Glucagon () 1 mg IM .X1 PRN PRN Reason: Hypoglycemia Heparin Sodium (Porcine) (Heparin Na) 5,000 unit SC Q12 [facility] Last Admin: 12/24/18 08:23 Dose: 5,000 unit Hydralazine HCl (Apresoline Iv) 5 mg IV Q30M PRN PRN Reason: sbp > 220/120 Sodium Chloride () 1,000 mls @ 125 mls/hr IV .Q8H [facility] Last Admin: 12/24/18 05:44 Dose: 125 mls/hr Ceftriaxone Sodium (Rocephin) 1 gm in 50 mls @ 100 mls/hr IV Q24 [facility] Last Admin: 12/24/18 08:23 Dose: 100 mls/hr Insulin Human Lispro (Humalog Kwikpen (Bkc)) 0 unit SQ ACHS [facility]; Protocol Last Admin: 12/24/18 11:09 Dose: Not Given Labetalol HCl (Trandate) 10 mg IV Q10M PRN PRN Reason: MAINTAIN BP < 220/120 Stop: 12/24/18 20:35 Melatonin (Melatonin) 3 mg PO QHS PRN PRN PRN Reason: INSOMNIA Morphine Sulfate () 1 - 2 mg IV Q4H PRN PRN PRN Reason: PAIN Nystatin (Mycostatin Powder) 1 applic TOPICAL TID [facility]; Protocol Last Admin: 12/24/18 05:44 Dose: 1 applicatio Ondansetron HCl (Zofran) 4 mg IV Q8H PRN PRN PRN Reason: NAUSEA/VOMITING Sodium Chloride () 5 - 15 ml IV UD PRN PRN Reason: SALINE FLUSH Last Admin: 12/23/18 22:23 Dose: 10 ml - Past Medical History Past Medical History (Chronic Problems): Chronic Problems Wound of lower extremity (Chronic) CKD (chronic kidney disease), stage III (Chronic) Morbid obesity (Chronic) HTN (hypertension) (Chronic) HLD (hyperlipidemia) (Chronic) RAQUEL (obstructive sleep apnea) (Chronic) Diabetes mellitus, type II (Chronic) Primary idiopathic dilated cardiomyopathy (Chronic) Mitral valve regurgitation (Chronic) CKD (chronic kidney disease), stage II (Chronic) - Past Surgical History Surgical History: - - Tonsillectomy, left lower extremity debridement of chronic wound, AICD placement, appendectomy. - Social History Marital Status: Single Smoking Status: Never smoker Alcohol: Occasional Drugs: None - Family History Maternal History Items: Diabetes, Renal Disease Paternal History Items: Diabetes, Heart Disease, Hypertension Review of Systems Constitutional: Denies: Anorexia, Chills, Fever, Weakness, Fatigue HEENT: Denies: Head Aches Cardiovascular: Reports: Edema. Denies: Chest Pain, Heaviness, Light Headedness, Syncope Respiratory: Denies: Cough, Shortness of Breath Gastrointestinal: Denies: Abdominal Pain, Constipation, Diarrhea, Nausea, Vomiting Genitourinary: Denies: Dysuria, Hematuria Musculoskeletal: Reports: - - Right leg weakness with foot drop Skin: Denies: Rash Neurological: Denies: Balance problems, Tremor, Seizures Psychiatric: Denies: Anxiety, Depression Hematologic/ Lymphatic: Denies: Anemia, Hx of blood clot Patient Problems: Active and Suspected Problems Falls frequently (Acute) Right foot drop (Acute) - Physical Exam General: Alert, Oriented x3, Cooperative, No apparent distress, - - Morbidly obese HEENT: PERRLA, EOMI Oral: Moist Mucosa Neck: Supple Lungs: Clear to auscultation Cardiovascular: Regular rate Abdomen: Bowel Sounds Present, Soft, Non Tender, Non-Distended Extremities: No edema Psych/Mental Status: Normal Affect, Appropriate, Alert and oriented to time, place, person, mood and affect Vital Signs Temp Pulse Resp BP Pulse Ox 99.3 F H 82 18 141/79 H 94 12/24/18 09:45 12/24/18 12:19 12/24/18 09:45 12/24/18 09:45 12/24/18 09:45 Oxygen Delivery Method Room Air Weight: 153.2 kg Body Mass Index (BMI) 47.1 Finger Stick Blood Glucose 307 Intake and Output for Last 24 Hours 12/22/18 12/23/18 12/24/18 23:59 23:59 23:59 Intake Total 702 / 702 1123 / 1123 Balance 702 / 702 1123 / 1123 Laboratory Tests Past 24 Hrs 12/23/18 12/23/18 12/23/18 18:06 18:06 18:06 WBC 8.9 RBC 5.03 Hgb 12.6 L Hct 40.0 MCV 79.5 L MCH 25.0 L MCHC 31.5 L RDW 16.3 H RDW Differential 46.7 H Plt Count 222 MPV 9.9 Immature Gran % (Auto) 0.200 Neut % (Auto) 72.7 H Lymph % (Auto) 13.7 L Gray % (Auto) 8.0 Eos % (Auto) 4.8 Baso % (Auto) 0.6 Absolute Neuts (auto) 6.5 Absolute Lymphs (auto) 1.22 Total Counted Not Reportable ESR Sodium 140 Potassium 4.5 Chloride 113 H Carbon Dioxide 20.0 L Anion Gap 7 BUN 51 H Creatinine 2.60 H Estim Creat Clear Calc 33.16 Est GFR (MDRD) Af Amer 33 L Est GFR (MDRD) Non-Af 27 L BUN/Creatinine Ratio 19.6 Glucose 123 H Hemoglobin A1c Calcium 8.7 Magnesium 2.0 Troponin I < 0.015 Triglycerides Cholesterol LDL Cholesterol VLDL Cholesterol HDL Cholesterol TSH 1.09 Urine Color Urine Clarity Urine pH Ur Specific [place] Urine Protein Urine Glucose (UA) Urine Ketones Urine Occult Blood Urine Nitrite Urine Bilirubin Urine Urobilinogen Ur Leukocyte Esterase Urine RBC Urine WBC Ur Squamous Epith Cells Urine Bacteria Urine Mucus Ur Random Sodium Urine Creatinine Rheumatoid Factor 12/23/18 12/23/18 12/23/18 18:06 19:15 21:49 WBC RBC Hgb Hct MCV MCH MCHC RDW RDW Differential Plt Count MPV Immature Gran % (Auto) Neut % (Auto) Lymph % (Auto) Gray % (Auto) Eos % (Auto) Baso % (Auto) Absolute Neuts (auto) Absolute Lymphs (auto) Total Counted ESR Sodium Potassium Chloride Carbon Dioxide Anion Gap BUN Creatinine Estim Creat Clear Calc Est GFR (MDRD) Af Amer Est GFR (MDRD) Non-Af BUN/Creatinine Ratio Glucose Hemoglobin A1c 7.3 H Calcium Magnesium Troponin I Triglycerides Cholesterol LDL Cholesterol VLDL Cholesterol HDL Cholesterol TSH Urine Color Yellow Urine Clarity Cloudy Urine pH 7.0 Ur Specific [place] 1.010 Urine Protein 100 H Urine Glucose (UA) Normal Urine Ketones Negative Urine Occult Blood 250 H Urine Nitrite Positive H Urine Bilirubin Negative Urine Urobilinogen Normal Ur Leukocyte Esterase 500 H Urine RBC 5-10 SEEN Urine WBC 25-50 SEEN Ur Squamous Epith Cells 0 SEEN Urine Bacteria 1+ Urine Mucus 0 SEEN Ur Random Sodium Urine Creatinine 76.70 Rheumatoid Factor 12/23/18 12/24/18 12/24/18 21:49 06:30 06:30 WBC RBC Hgb Hct MCV MCH MCHC RDW RDW Differential Plt Count MPV Immature Gran % (Auto) Neut % (Auto) Lymph % (Auto) Gray % (Auto) Eos % (Auto) Baso % (Auto) Absolute Neuts (auto) Absolute Lymphs (auto) Total Counted ESR 71 H Sodium Potassium Chloride Carbon Dioxide Anion Gap BUN Creatinine Estim Creat Clear Calc Est GFR (MDRD) Af Amer Est GFR (MDRD) Non-Af BUN/Creatinine Ratio Glucose Hemoglobin A1c Calcium Magnesium Troponin I Triglycerides Cholesterol LDL Cholesterol VLDL Cholesterol HDL Cholesterol TSH Urine Color Urine Clarity Urine pH Ur Specific [place] Urine Protein Urine Glucose (UA) Urine Ketones Urine Occult Blood Urine Nitrite Urine Bilirubin Urine Urobilinogen Ur Leukocyte Esterase Urine RBC Urine WBC Ur Squamous Epith Cells Urine Bacteria Urine Mucus Ur Random Sodium 61 Urine Creatinine Rheumatoid Factor < 10.0 12/24/18 12/24/18 06:33 06:33 WBC 8.4 RBC 4.70 Hgb 11.9 L Hct 37.5 L MCV 79.8 L MCH 25.3 L MCHC 31.7 L RDW 16.2 H RDW Differential 47.3 H Plt Count 208 MPV 9.8 Immature Gran % (Auto) 0.100 Neut % (Auto) 67.9 Lymph % (Auto) 16.8 L Gray % (Auto) 10.1 H Eos % (Auto) 4.7 Baso % (Auto) 0.4 Absolute Neuts (auto) 5.7 Absolute Lymphs (auto) 1.41 Total Counted Not Reportable ESR Sodium 145 Potassium 3.7 Chloride 116 H Carbon Dioxide 22.0 Anion Gap 7 BUN 43 H Creatinine 2.42 H Estim Creat Clear Calc 34.57 Est GFR (MDRD) Af Amer 35 L Est GFR (MDRD) Non-Af 29 L BUN/Creatinine Ratio 17.8 Glucose 113 H Hemoglobin A1c Calcium 8.4 L Magnesium Troponin I Triglycerides 107 Cholesterol 119 LDL Cholesterol 69 VLDL Cholesterol 21 HDL Cholesterol 29 L TSH Urine Color Urine Clarity Urine pH Ur Specific [place] Urine Protein Urine Glucose (UA) Urine Ketones Urine Occult Blood Urine Nitrite Urine Bilirubin Urine Urobilinogen Ur Leukocyte Esterase Urine RBC Urine WBC Ur Squamous Epith Cells Urine Bacteria Urine Mucus Ur Random Sodium Urine Creatinine Rheumatoid Factor POC Glucose 12/24/18 12/24/18 12/23/18 11:07 07:07 22:09 POC Glucose 107 109 96 Clinical Impression(s) from Imaging Studies Brain CT 12/23/18 17:53 IMPRESSION: Significant central and cortical involutional changes for the patient's age and should be correlated clinically Mild old deep white matter and basal ganglia small vessel ischemic changes Indeterminate most likely benign calcified lesion overlying the right frontal convexity within the subcutaneous soft tissues measuring 2.1 x 1.5 x 1.2 cm this should be correlated clinically and with physical exam findings and prior imaging Electronically Signed: Paul Valdez at 18:57 EDT Tel , Service support , Tibia/Fibula X-Ray 12/23/18 17:54 IMPRESSION: Soft tissue edema Osteophyte at the Achilles tendon insertion Likely osteochondral lesions medial talar dome and tiny bony density most likely small joint mouse less likely osteophyte within the medial tibiotalar compartment, this can be further evaluated with CT or MRI Electronically Signed: Paul Valdez at 18:41 EDT Tel , Service support , Knee X-Ray 12/23/18 18:18 IMPRESSION: Superficial soft tissue swelling without underlying fracture, dislocation or a substantial joint effusion. Electronically Signed: Ethel Mejia MD at 18:40 EDT , Service support , Cervical Spine CT 12/23/18 20:34 IMPRESSION: No evidence for acute fracture or subluxation. Mild spondylosis most severe at C6-7 Electronically Signed: Robert Rivera MD at 21:24 EDT , Service support , Lumbar Spine CT 12/23/18 20:34 IMPRESSION: Normal alignment of the lumbar spine without acute fracture deformity. Degenerative disc and joint changes as stated above. The most severe findings are at L4-5 with disc narrowing with a posterior annulus bulge partially calcified on the left and moderate facet arthrosis and posterior hypertrophy causing borderline general spinal stenosis narrowing of the lateral recesses, left greater than right and left foraminal narrowing. Electronically Signed: Ethel Mejia MD at 21:58 EDT , Service support , Assessment/Plan All Active Problems Falls frequently (Acute) Right foot drop (Acute) Hyperkalemia (Acute) Hyperosmolar non-ketotic state in patient with type 2 diabetes mellitus (Acute) CHANTALE (acute kidney injury) (Acute) 1. CHANTALE on chronic kidney disease baseline creatinine appears to be at 1.1-1.5 back in 2015,2016 now at 2.6 on admission to improved to 2.4 today after IV hydration initiated. Acute component likely due to prerenal event on Bumex and STACY inhibitor both discontinued on admission. Suspect underlying diabetic nephropathy. Family history significant for diabetic nephropathy. Continue to hold off on Bumex and STACY inhibitor therapy for now until renal function back to baseline. 2. Foot drop with frequent falls at home. Refusing rehab. Follow-up with PCP. 3. DM type II follow-up with PCP. 4. Hypertension blood pressure stable. 5. Await kidney ultrasound. Check UA for proteinuria. 6. Follow-up in the office with me in 2 to 3 weeks with renal panel.
--- NOTE | 2018-12-24 14:04 | CASEMGMT ---
Per therapy, pt would benefit from AFO brace from [email or web address]. Call to Nathalie Randle CM for Dr. Wylie, and she is aware that pt will need AFO brace script from Dr. Wylie and Nathalie scheduled pt an appt for 12/27/18 at 1100 at this time. She states that she had not been following pt but she will from now on. Pt updated on all at this time and voices understanding. Pt states he will work on getting transportation set up for thursday and is aware to call Nathalie if he cannot make the appt. Pt's appt placed in f/u appt list and Nathalie's number provided on list as well as provided to pt at this time. Nathalie was made aware that pt does have transportation concerns as well. Pt voices no further questions/concerns/needs at this time. SStnieves MILAN CM
[2018-12-24 15:29] LABS: Protein, Urine (Random) 34.5 mg/dL (<11.9); Urine Sodium 80 mmol/L (Not Establ.)
--- NOTE | 2018-12-24 16:07 | NURSING ---
This RN taking over care at this time
[2018-12-24 16:25] LABS: Bedside Glucose 117 mg/dL (70-110)
--- NOTE | 2018-12-24 16:36 | NURSING ---
patient straight cath'd for 1800ml. amber lynne notified. report given to dion duff
[2018-12-24] MEDS: Carvedilol 12.5 MG Tablet 37.5 MG PO (21:21)
[2018-12-24] MEDS: Atorvastatin Calcium 80 MG Tablet PO (21:22)
[2018-12-24 22:05] LABS: Bedside Glucose 100 mg/dL (70-110)
[2018-12-25] VITALS (7 sets, daily range): BP systolic 147–155; BP diastolic 69–95; PULSE 66–80; RESP 16–18; TEMP 36.6–36.9; O2SAT 94–96
[2018-12-25 06:21] LABS: Anion Gap 5 (5-15); BUN 36 mg/dL (7-18); BUN/Creat Ratio 15.4 RATIO (10-20); Chloride 115 mmol/L (98-107); Creatinine, Serum 2.34 mg/dL (0.70-1.30); EST Glomerular Filtration Rate 30 mL/min (>60); Est Glom Filt Rate - Afr Amer 37 mL/min (>60); Estimated Creatinine Clearance 35.75 ml/min; Glucose 103 mg/dL (74-106); Potassium 3.7 mmol/L (3.5-5.1); Sodium Level 142 mmol/L (136-145)
[2018-12-25] MEDS: Nystatin Powder 15gm Bottle 1 APPLIC TOPICAL (06:34)
[2018-12-25] MEDS: 0.9% Normal Saline 1,000 ML 125 ML IV (06:36)
[2018-12-25 06:50] LABS: Bedside Glucose 93 mg/dL (70-110)
[2018-12-25] MEDS: Carvedilol 12.5 MG Tablet 37.5 MG PO (09:00)
[2018-12-25] MEDS: Heparin Injection (Vial) 5,000 UNIT/ML VIAL 5000 UNIT SC (09:00)
[2018-12-25] MEDS: Allopurinol 300 MG Tablet 150 MG PO (09:00)
[2018-12-25] MEDS: Aspirin 81 MG TAB.CHEW PO (09:00)
[2018-12-25] MEDS: amLODIPine 10 MG Tablet PO (09:00)
[2018-12-25] MEDS: Ceftriaxone 1 GM/50 ML BAG IV (09:00)
[2018-12-25] MEDS: 0.9% NaCl Peripheral Flush Adult/Peds IV (09:01)
--- NOTE | 2018-12-25 10:57 | PN.RENAL_ITS ---
Patient Problems: Active and Suspected Problems Falls frequently (Acute) Right foot drop (Acute) Subjective: renal fxn slightly improved. Urine with GNR on rocephin. Continue to hold on bumex and lisinopril. - Physical Exam General: Alert, Oriented x3, Cooperative Lungs: Clear to auscultation Cardiovascular: Regular rate Abdomen: Bowel Sounds Present, Soft, Non Tender, Non-Distended, Obese Extremities: No edema Vital Signs Temp Pulse Resp BP Pulse Ox 97.8 F 66 16 147/69 H 96 12/25/18 09:10 12/25/18 09:10 12/25/18 09:10 12/25/18 09:10 12/25/18 09:10 Oxygen Delivery Method Room Air Weight: 153.2 kg Body Mass Index (BMI) 47.1 Finger Stick Blood Glucose 307 Intake and Output for Last 24 Hours 12/23/18 12/24/18 12/25/18 23:59 23:59 23:59 Intake Total 702 / 702 6533 / 6533 1276 / 1276 Output Total 2250 / 2250 Balance 702 / 702 4283 / 4283 1276 / 1276 Microbiology Past 72 Hours 12/23/18 19:15 Urine Culture - Preliminary Urine, Clean Catch Gram negative silvia Laboratory Tests Past 24 Hrs 12/24/18 12/24/18 12/24/18 06:30 06:30 11:59 ESR 71 H Sodium Potassium Chloride Carbon Dioxide Anion Gap BUN Creatinine Estim Creat Clear Calc Est GFR (MDRD) Af Amer Est GFR (MDRD) Non-Af BUN/Creatinine Ratio Glucose Calcium U Random Total Protein 34.5 H Ur Random Sodium 80 Urine Creatinine 60.50 Rheumatoid Factor < 10.0 YEIMY Screen c-ANCA Antibody p-ANCA Antibody AVANI-1 Antibody SS-A/Ro IgG Antibody SS-B/La IgG Antibody Sm (Pedraza) Antibody [employer] Antibody Scl-70 Scleroderma Ab Double Strand DNA Ab Centromere B Antibody Lyme Total Antibody 12/24/18 12/24/18 12/25/18 13:08 13:08 05:10 ESR Sodium 142 Potassium 3.7 Chloride 115 H Carbon Dioxide 22.0 Anion Gap 5 BUN 36 H Creatinine 2.34 H Estim Creat Clear Calc 35.75 Est GFR (MDRD) Af Amer 37 L Est GFR (MDRD) Non-Af 30 L BUN/Creatinine Ratio 15.4 Glucose 103 Calcium 8.0 L U Random Total Protein Ur Random Sodium Urine Creatinine Rheumatoid Factor YEIMY Screen Pending c-ANCA Antibody Pending p-ANCA Antibody Pending AVANI-1 Antibody Pending SS-A/Ro IgG Antibody Pending SS-B/La IgG Antibody Pending Sm (Pedraza) Antibody Pending [employer] Antibody Pending Scl-70 Scleroderma Ab Pending Double Strand DNA Ab Pending Centromere B Antibody Pending Lyme Total Antibody Pending POC Glucose 12/25/18 12/24/18 12/24/18 06:39 21:20 16:10 POC Glucose 93 100 117 H 12/24/18 11:07 POC Glucose 107 Medical Necessity - Tobacco Use Smoking Status: Never smoker Tobacco Use: Non-smoker Assessment/Plan All Active Problems Falls frequently (Acute) Right foot drop (Acute) Hyperkalemia (Acute) Hyperosmolar non-ketotic state in patient with type 2 diabetes mellitus (Acute) CHANTALE (acute kidney injury) (Acute) 1. CHANTALE on chronic kidney disease baseline creatinine appears to be at 1.1-1.5 back in 2015,2016 now at 2.6 on admission improved to 2.34 today after IV hydration initiated. Acute component likely due to prerenal event on Bumex and STACY inhibitor both discontinued on admission. Continue to hold on discharge. Suspect underlying diabetic nephropathy. 2. Foot drop with frequent falls at home. Refusing rehab. Follow-up with PCP. 3. DM type II follow-up with PCP. 4. Hypertension blood pressure stable. 5. kidney ultrasound report pending. UA with proteinuria. 6. Follow-up in the office with me in 2 to 3 weeks with renal panel.
[2018-12-25 11:05] LABS: Bedside Glucose 132 mg/dL (70-110)
--- NOTE | 2018-12-25 12:17 | DCINST_ITS ---
- Discharge Diagnoses Current Active Problems: Current Active and Chronic Problems Falls frequently (Acute) Right foot drop (Acute) Wound of lower extremity (Chronic) CKD (chronic kidney disease), stage III (Chronic) Morbid obesity (Chronic) HTN (hypertension) (Chronic) HLD (hyperlipidemia) (Chronic) RAQUEL (obstructive sleep apnea) (Chronic) Diabetes mellitus, type II (Chronic) You will use the following diet at home:: Calorie/Carbohydrate Controlled (specify 1200, 1400, etc) Discharge Activity: Return to Normal Activity, Use Walker Call your doctor if you observe: Shortness of breath, Dizziness, Fainting spells, Chest pain Allergies/Adverse Reactions: Allergies No Known Allergies Allergy (Verified 12/23/18 17:28) Medications to take at Discharge Allopurinol [Zyloprim] 150 mg PO DAILY 01/27/16 Carvedilol [Coreg (Beta Mary)] 37.5 tab PO BID 01/27/16 Linagliptin [Tradjenta] 5 mg PO DAILY 08/05/17 Amlodipine Besylate 10 mg PO DAILY 12/23/18 Ammonium Lactate 1 applicatio TP DAILY 12/23/18 Latanoprost 0.005% [Xalatan Opthalmic] 1 drop EACH EYE DAILY 12/23/18 Cephalexin [Keflex] 500 mg PO Q12 #10 capsule 12/25/18 The following prescriptions were given: Cephalexin [Keflex] 500 mg PO Q12 #10 capsule Primary Care Physician: Juany Wylie MD [Primary Care Provider] - Please follow up with your Primary Care Physician in: 1 Week Test Results: Test results from this visit will be discussed in further detail at your follow- up appointment, if applicable. Please Follow Up With: Omaira Chavez DO When: 1-2 Weeks Please Follow Up With: Nathalie Brown DO When: 1-2 Weeks, orthopedic for osteochondral lesions patellar dome Please Follow Up With: [facility] When: 1 Week Please Follow Up With: Huong Guerrero MD When: 6 Weeks Proposed Discharge Date: 12/25/18
--- NOTE | 2018-12-25 12:20 | PCM.DC.SUM ---
<Sara Ayoub - Last Filed: 12/25/18 12:27> Discharge Date and Diagnosis Date of Admission: 12/23/18 Date of Discharge: 12/25/18 - Primary Discharge Diagnosis Active and Suspected Problems 1. New right lower extremity foot drop with associated debility/frequent falls- CVA ruled out. 2. Acute kidney injury on chronic kidney disease stage III 3. Primary idiopathic dilated cardiomyopathy status post AICD 4. Acute gram-negative UTI 5. Intertrigo 6. Incidental osteochondral lesions medial patellar dome and tiny bony density 7. Hypertension 8. Hyperlipidemia 9. Type 2 diabetes mellitus 10. Morbid obesity 11. RAQUEL 12. 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 - Secondary Discharge Diagnosis Chronic Problems Wound of lower extremity (Chronic) CKD (chronic kidney disease), stage III (Chronic) Morbid obesity (Chronic) HTN (hypertension) (Chronic) HLD (hyperlipidemia) (Chronic) RAQUEL (obstructive sleep apnea) (Chronic) Diabetes mellitus, type II (Chronic) Primary idiopathic dilated cardiomyopathy (Chronic) Mitral valve regurgitation (Chronic) CKD (chronic kidney disease), stage II (Chronic) Hospital Course and Treatment Imaging Results: Diagnostic Data Brain CT 12/23/18 17:53 IMPRESSION: Significant central and cortical involutional changes for the patient's age and should be correlated clinically Mild old deep white matter and basal ganglia small vessel ischemic changes Indeterminate most likely benign calcified lesion overlying the right frontal convexity within the subcutaneous soft tissues measuring 2.1 x 1.5 x 1.2 cm this should be correlated clinically and with physical exam findings and prior imaging Electronically Signed: Paul Valdez, at 18:57 EDT Tel , Service support , Tibia/Fibula X-Ray 12/23/18 17:54 IMPRESSION: Soft tissue edema Osteophyte at the Achilles tendon insertion Likely osteochondral lesions medial talar dome and tiny bony density most likely small joint mouse less likely osteophyte within the medial tibiotalar compartment, this can be further evaluated with CT or MRI Electronically Signed: Paul Valdez at 18:41 EDT Tel , Service support , Knee X-Ray 12/23/18 18:18 IMPRESSION: Superficial soft tissue swelling without underlying fracture, dislocation or a substantial joint effusion. Electronically Signed: Ethel Mejia MD at 18:40 EDT , Service support , Cervical Spine CT 12/23/18 20:34 IMPRESSION: No evidence for acute fracture or subluxation. Mild spondylosis most severe at C6-7 Electronically Signed: Robert Rivera MD at 21:24 EDT , Service support , Lumbar Spine CT 12/23/18 20:34 IMPRESSION: Normal alignment of the lumbar spine without acute fracture deformity. Degenerative disc and joint changes as stated above. The most severe findings are at L4-5 with disc narrowing with a posterior annulus bulge partially calcified on the left and moderate facet arthrosis and posterior hypertrophy causing borderline general spinal stenosis narrowing of the lateral recesses, left greater than right and left foraminal narrowing. Electronically Signed: Ethel Mejia MD at 21:58 EDT , Service support , Consultations 12/23/18 20:34 Consult: Onc/Wound/home office claims examiner Routine Comment: Dr. Guerrero- Neurology Dr. Chavez- Nephrology Operations: None Procedures: 2-D Echocardiogram Summary of Care Provided: The patient is a 58 year old M admitted 12/23/2018 due to falls, new right foot drop. 1. New right lower extremity foot drop with associated debility/frequent falls-neurology consulted. Unable to obtain MRI due to AICD. Brain CT without acute infarct. Benign frontal soft tissue lesion, suspect pilar cyst. Cervical spine CT with no acute fracture or subluxation. Mild spondylosis most severe at C6-C7. Lumbar spine CT showed degenerative disc and joint changes. Most severe findings are at L4-L5 with disc narrowing with a posterior annulus bulge, general spinal stenosis narrowing left greater than right and left foraminal narrowing. Neurology recommending spine surgery consult which can be completed as outpatient, referral per PCP. EMG in 3 to 4 weeks as outpatient, to be arranged by PCP. YEIMY/ANCA/RF/Lyme's antibody and ESR results pending. Follow-up with neurology in 6 weeks. Patient declined rehab/home health. Agreeable to outpatient PT. Follow-up with primary care provider in 1 week. 2. Acute kidney injury on chronic kidney disease stage III- nephrology consulted. Renal US completed, results pending. Suspect CHANTALE due to diuretic regimen. Hold Bumex, STACY inhibitor at discharge. Follow-up with Dr. Chavez in 1 week. 3. Primary idiopathic dilated cardiomyopathy status post AICD-diuretic regimen on hold at discharge as noted above. 4. Acute gram-negative UTI-IV Rocephin during admission. Discharged on Keflex 500 mg twice daily for 5 days. 5. Intertrigo-Nystatin powder. 6. Incidental osteochondral lesions medial patellar dome and tiny bony density-outpatient follow-up with orthopedic. Orthopedics contacted on admission and did not feel acute or related to #1. Follow up with Dr. Brown in 1-2 Weeks. 7. Hypertension-stable, continue amlodipine, carvedilol regimen. Lisinopril and Bumex regimen on hold. 8. Hyperlipidemia-not on statin regimen. Fasting lipid panel within normal limits. 9. Type 2 diabetes mellitus-continue home oral regimen. 10. Morbid obesity-encourage diet lifestyle modifications. 11. RAQUEL-noncompliant with CPAP. 12. 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 Wound RN consult. Recommend outpatient follow-up with wound center in 1 week. General: Alert, Oriented x3, Cooperative HEENT: Atraumatic, PERRLA, EOMI, Normocephalic Oral: - - Poor dentition. Neck: Supple, No JVD, Negative Carotid Bruits Lungs: Clear to auscultation, Normal air movement Cardiovascular: Regular rate, Regular Rhythm, Normal S1, Normal S2, No murmurs Abdomen: Bowel Sounds Present, Soft, Non Tender, Non-Distended, Obese Extremities: No clubbing, No cyanosis, No edema, Capillary Refill Less than 3 Seconds Skin: No rashes, No breakdown, - - Chronic venous stasis skin changes bilateral lower extremities. Chronic left lower extremity medial casillas wound following prior skin graft. Mid frontal scalp cyst. Musculoskeletal: No Tenderness to Palpation of Joints or Extremities Neurological: Cranial nerves II-XII grossly intact, Neuro grossly intact Psych/Mental Status: Normal Affect, Appropriate Patient seen and examined prior to discharge. Physical assessment as noted above. Patient is stable for discharge with follow up recommendations as noted above. This patient was seen by SRAVANTHI Howard under the supervision of Dr. Erwin. - Physical Exam Vital Signs Temp Pulse Resp BP Pulse Ox 97.8 F 66 16 147/69 H 96 12/25/18 09:10 12/25/18 09:10 12/25/18 09:10 12/25/18 09:10 12/25/18 09:10 Oxygen Delivery Method Room Air Weight: 337 lb 11.971 oz Body Mass Index (BMI) 47.1 Finger Stick Blood Glucose 307 Intake and Output for Last 24 Hours 12/23/18 12/24/18 12/25/18 23:59 23:59 23:59 Intake Total 702 / 702 6533 / 6533 2464 / 2464 Output Total 2250 / 2250 Balance 702 / 702 4283 / 4283 2464 / 2464 Microbiology Past 72 Hours 12/23/18 19:15 Urine Culture - Preliminary Urine, Clean Catch Gram negative silvia Laboratory Tests Past 24 Hrs 12/24/18 12/24/18 12/24/18 06:30 06:30 11:59 ESR 71 H Sodium Potassium Chloride Carbon Dioxide Anion Gap BUN Creatinine Estim Creat Clear Calc Est GFR (MDRD) Af Amer Est GFR (MDRD) Non-Af BUN/Creatinine Ratio Glucose Calcium U Random Total Protein 34.5 H Ur Random Sodium 80 Urine Creatinine 60.50 Rheumatoid Factor < 10.0 YEIMY Screen c-ANCA Antibody p-ANCA Antibody AVANI-1 Antibody SS-A/Ro IgG Antibody SS-B/La IgG Antibody Sm (Pedraza) Antibody DRY WALL INSTALLER Antibody Scl-70 Scleroderma Ab Double Strand DNA Ab Centromere B Antibody Lyme Total Antibody 12/24/18 12/24/18 12/25/18 13:08 13:08 05:10 ESR Sodium 142 Potassium 3.7 Chloride 115 H Carbon Dioxide 22.0 Anion Gap 5 BUN 36 H Creatinine 2.34 H Estim Creat Clear Calc 35.75 Est GFR (MDRD) Af Amer 37 L Est GFR (MDRD) Non-Af 30 L BUN/Creatinine Ratio 15.4 Glucose 103 Calcium 8.0 L U Random Total Protein Ur Random Sodium Urine Creatinine Rheumatoid Factor YEIMY Screen Pending c-ANCA Antibody Pending p-ANCA Antibody Pending AVANI-1 Antibody Pending SS-A/Ro IgG Antibody Pending SS-B/La IgG Antibody Pending Sm (Pedraza) Antibody Pending DRY WALL INSTALLER Antibody Pending Scl-70 Scleroderma Ab Pending Double Strand DNA Ab Pending Centromere B Antibody Pending Lyme Total Antibody Pending POC Glucose 12/25/18 12/25/18 12/24/18 10:54 06:39 21:20 POC Glucose 132 H 93 100 12/24/18 12/24/18 16:10 11:07 POC Glucose 117 H 107 Discharge Diet: Low fat/ Low Cholesterol, 1800 Calorie Control Diet, Carb Control Diet Discharge Activity: Return to Normal Activity, Use Walker Call your doctor if you observe: Shortness of breath, Dizziness, Fainting spells, Chest pain Home Medications: Medications to take at Discharge Allopurinol [Zyloprim] 150 mg PO DAILY 01/27/16 Carvedilol [Coreg (Beta Mary)] 37.5 tab PO BID 01/27/16 Linagliptin [Tradjenta] 5 mg PO DAILY 08/05/17 Amlodipine Besylate 10 mg PO DAILY 12/23/18 Ammonium Lactate 1 applicatio TP DAILY 12/23/18 Latanoprost 0.005% [Xalatan Opthalmic] 1 drop EACH EYE DAILY 12/23/18 Cephalexin [Keflex] 500 mg PO Q12 #10 capsule 12/25/18 Following Prescrptions Were Given to Patient: Cephalexin [Keflex] 500 mg PO Q12 #10 capsule Primary Care Physician: Juany Wylie MD [Primary Care Provider] - Please follow up with your Primary Care Physician in: 1 Week Please Follow Up With: Omaira Chavez DO When: 1-2 Weeks Please Follow Up With: Nathalie Brown DO When: 1-2 Weeks, orthopedic for osteochondral lesions patellar dome Please Follow Up With: Wound Center When: 1 Week Please Follow Up With: Huong Guerrero MD When: 6 Weeks Disposition: Home Minutes spent on discharge:: 35 Patient Condition:: Stable Medical Necessity - Tobacco Use Smoking Status: Never smoker Tobacco Use: Non-smoker Meaningful Use Info Meaningful Use Diagnoses (Choose all that apply): None applicable <Rip,Amish - Last Filed: 12/25/18 14:19> Discharge Date and Diagnosis - Secondary Discharge Diagnosis Chronic Problems Wound of lower extremity (Chronic) CKD (chronic kidney disease), stage III (Chronic) Morbid obesity (Chronic) HTN (hypertension) (Chronic) HLD (hyperlipidemia) (Chronic) RAQUEL (obstructive sleep apnea) (Chronic) Diabetes mellitus, type II (Chronic) Primary idiopathic dilated cardiomyopathy (Chronic) Mitral valve regurgitation (Chronic) CKD (chronic kidney disease), stage II (Chronic) Hospital Course and Treatment Consultations 12/23/18 20:34 Consult: Onc/Wound/home office claims examiner Routine Comment: Summary of Care Provided: [] This patient was seen in conjunction with COMPUTER SYSTEMS ANALYST, Sara. I have independently interviewed and examined the patient and reviewed pertinent history, examination findings, laboratory and plan of management. I have reviewed the note and agree with the documented findings with the few additional points. In brief, the patient is 58-year-old gentleman with multiple comorbidities including idiopathic dilated cardiomyopathy, nonischemic status post AICD, CKD stage III, chronic venous sufficiency with chronic left lower extremity distal wound with history of skin graft was admitted with right leg giving out, right foot drop resulting into fall. Neurologist was consulted. Patient cannot have MRI because of AICD. She had extensive imaging including CT head which showed subcutaneous soft tissue over right frontal convexity, measuring 2.1 x 1.5 x 1.[address] with no acute fracture or subluxation. Mild spondylosis most severe at C6-C7. Lumbar spine CT showed degenerative disc and joint changes with the most severe findings are at L4-L5 with disc narrowing with a posterior annulus bulge, general spinal stenosis narrowing left greater than right and left foraminal narrowing. Adjust further recommended surgery consult for degenerative changes of CT spine and lumbar spine. EMG/NCS was recommended after 3 to 4 weeks as an outpatient. Immune antibodies were ordered. PT and OT and right leg brace for foot drop. The patient was advised follow-up outpatient physical therapy. Patient also needs outpatient his spine surgery follow-up for lumbar spinal stenosis, referred by PCP. Right leg brace. Follow-up with urology in 6 weeks for autoimmune antibodies. Patient also has acute kidney injury and CKD stage II: His baseline creatinine is 1.1-1.5, in 2016 and 17. Patient was seen by controller coal or ore. Acute kidney injury mostly secondary to Bumex and STACY inhibitor which are discontinued. UA shows LE 500, WBC 25-57 RBC 5-10 cells. Mild proteinuria. Patient is being discharged off Bumex and STACY inhibitor. Preliminary urine culture shows gram-negative rods 50,000-80,000; suggestive of gram-negative silvia UTI. In view of patient urine retention although denies dysuria, increased frequency urgency, patient was started on IV ceftriaxone and got 2 doses and discharged on Keflex for 5 more days. Echo was done reported as EF 55% with septal motion consistent with IVCD. Left atrium mildly enlarged. Normal right atrium. Normal size and thickness of right ventricle. Normal aortic valve. Patient other comorbidities including hypertension, dyslipidemia, type 2 diabetes mellitus but being taken care as mentioned above. Discharge medication reconciliation done. Discharge follow-up instructions completed. Discharge process discussed with the patient and all questions were answered to patient's satisfaction.. Total time spent, exact 35 minutes on discharge meds reconciliation, examination, review of imaging and blood test and discussion with the patient on follow-up instructions. I have discussed my assessment with COMPUTER SYSTEMS ANALYSTSara and orders have been reviewed. Microbiology Past 72 Hours 12/23/18 19:15 Urine, Clean Catch Urine Culture - Preliminary Gram negative silvia Laboratory Results 12/24/18 11:59: U Random Total Protein 34.5 H, Ur Random Sodium 80, Urine Creatinine 60.50 12/24/18 16:10: POC Glucose 117 H 12/24/18 21:20: POC Glucose 100 12/25/18 05:10: Sodium 142, Potassium 3.7, Chloride 115 H, Carbon Dioxide 22.0, Anion Gap 5, BUN 36 H, Creatinine 2.34 H, Estim Creat Clear Calc 35.75, Est GFR (MDRD) Af Amer 37 L, Est GFR (MDRD) Non-Af 30 L, BUN/Creatinine Ratio 15.4, Glucose 103, Calcium 8.0 L 12/25/18 06:39: POC Glucose 93 12/25/18 10:54: POC Glucose 132 H 12/25/18 12:30: Urine Creatinine 56.10 12/25/18 12:30: U Random Total Protein 37.4 H Subjective: Patient seen and examined today. Patient still has left foot drop. And had urine retention, about 500 mL postvoid residual and required straight catheterization; possible chronic neurogenic bladder. Patient has history of chronic lumbar spinal stenosis. - Physical Exam General: Alert, Oriented x3, Cooperative HEENT: Atraumatic, PERRLA, EOMI, Normocephalic Neck: Supple, No JVD, Negative Carotid Bruits Lungs: Clear to auscultation, No rhonchi, No wheeze, No rales, Diminished Cardiovascular: Regular rate, Regular Rhythm, Normal S1, Normal S2, No murmurs Abdomen: Bowel Sounds Present, Soft, Non Tender, Non-Distended Extremities: Capillary Refill Less than 3 Seconds, Edema Skin: Ulcer/ Wound, - - Chronic venous stasis skin changes bilateral lower extremities. Chronic left lower extremity medial casillas wound following prior skin graft. Mid frontal scalp cyst. Chronic venous dermatitis. Musculoskeletal: No Tenderness to Palpation of Joints or Extremities, Arthritic Changes, - Neurological: Cranial nerves II-XII grossly intact, Deep Tendon Reflexes 2+/4 and Symmetrical, Sensory exam intact to light touch and pain, - - Plantar reflex downgoing both feet. Right foot dorsiflexion and eversion weakness, 3/5. Plantar flexion is normal. Power 5/5 at bilateral hip and knee joints. Bilateral upper extremity at major joints. Psych/Mental Status: Normal Affect, Appropriate Vital Signs Temp Pulse Resp BP Pulse Ox 97.8 F 66 16 147/69 H 96 12/25/18 09:10 12/25/18 09:10 12/25/18 09:10 12/25/18 09:10 12/25/18 09:10 Oxygen Delivery Method Room Air Weight: 337 lb 11.971 oz Body Mass Index (BMI) 47.1 Finger Stick Blood Glucose 307 Intake and Output for Last 24 Hours 12/23/18 12/24/18 12/25/18 23:59 23:59 23:59 Intake Total 702 / 702 6533 / 6533 2464 / 2464 Output Total 2250 / 2250 Balance 702 / 702 4283 / 4283 2464 / 2464 Microbiology Past 72 Hours 12/23/18 19:15 Urine Culture - Preliminary Urine, Clean Catch Gram negative silvia Laboratory Tests Past 24 Hrs 12/24/18 12/25/18 12/25/18 11:59 05:10 12:30 Sodium 142 Potassium 3.7 Chloride 115 H Carbon Dioxide 22.0 Anion Gap 5 BUN 36 H Creatinine 2.34 H Estim Creat Clear Calc 35.75 Est GFR (MDRD) Af Amer 37 L Est GFR (MDRD) Non-Af 30 L BUN/Creatinine Ratio 15.4 Glucose 103 Calcium 8.0 L U Random Total Protein 34.5 H Ur Random Sodium 80 Urine Creatinine 60.50 56.10 12/25/18 12:30 Sodium Potassium Chloride Carbon Dioxide Anion Gap BUN Creatinine Estim Creat Clear Calc Est GFR (MDRD) Af Amer Est GFR (MDRD) Non-Af BUN/Creatinine Ratio Glucose Calcium U Random Total Protein 37.4 H Ur Random Sodium Urine Creatinine POC Glucose 12/25/18 12/25/18 12/24/18 10:54 06:39 21:20 POC Glucose 132 H 93 100 12/24/18 16:10 POC Glucose 117 H Code Visit Inpatient E&M: 79925 Disch Hosp
--- NOTE | 2018-12-25 12:27 | DS.PCM_ITS ---
<Sara Ayoub - Last Filed: 12/25/18 12:27> Discharge Date and Diagnosis Date of Admission: 12/23/18 Date of Discharge: 12/25/18 - Primary Discharge Diagnosis Active and Suspected Problems 1. New right lower extremity foot drop with associated debility/frequent falls- CVA ruled out. 2. Acute kidney injury on chronic kidney disease stage III 3. Primary idiopathic dilated cardiomyopathy status post AICD 4. Acute gram-negative UTI 5. Intertrigo 6. Incidental osteochondral lesions medial patellar dome and tiny bony density 7. Hypertension 8. Hyperlipidemia 9. Type 2 diabetes mellitus 10. Morbid obesity 11. RAQUEL 12. 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 - Secondary Discharge Diagnosis Chronic Problems Wound of lower extremity (Chronic) CKD (chronic kidney disease), stage III (Chronic) Morbid obesity (Chronic) HTN (hypertension) (Chronic) HLD (hyperlipidemia) (Chronic) RAQUEL (obstructive sleep apnea) (Chronic) Diabetes mellitus, type II (Chronic) Primary idiopathic dilated cardiomyopathy (Chronic) Mitral valve regurgitation (Chronic) CKD (chronic kidney disease), stage II (Chronic) Hospital Course and Treatment Imaging Results: Diagnostic Data Brain CT 12/23/18 17:53 IMPRESSION: Significant central and cortical involutional changes for the patient's age and should be correlated clinically Mild old deep white matter and basal ganglia small vessel ischemic changes Indeterminate most likely benign calcified lesion overlying the right frontal convexity within the subcutaneous soft tissues measuring 2.1 x 1.5 x 1.2 cm this should be correlated clinically and with physical exam findings and prior imaging Electronically Signed: Paul Valdez, at 18:57 EDT Tel , Service support , Tibia/Fibula X-Ray 12/23/18 17:54 IMPRESSION: Soft tissue edema Osteophyte at the Achilles tendon insertion Likely osteochondral lesions medial talar dome and tiny bony density most likely small joint mouse less likely osteophyte within the medial tibiotalar compartment, this can be further evaluated with CT or MRI Electronically Signed: Paul Valdez at 18:41 EDT Tel , Service support , Knee X-Ray 12/23/18 18:18 IMPRESSION: Superficial soft tissue swelling without underlying fracture, dislocation or a substantial joint effusion. Electronically Signed: Ethel Mejia MD at 18:40 EDT , Service support , Cervical Spine CT 12/23/18 20:34 IMPRESSION: No evidence for acute fracture or subluxation. Mild spondylosis most severe at C6-7 Electronically Signed: Robert Rivera MD at 21:24 EDT , Service support , Lumbar Spine CT 12/23/18 20:34 IMPRESSION: Normal alignment of the lumbar spine without acute fracture deformity. Degenerative disc and joint changes as stated above. The most severe findings are at L4-5 with disc narrowing with a posterior annulus bulge partially calcified on the left and moderate facet arthrosis and posterior hypertrophy causing borderline general spinal stenosis narrowing of the lateral recesses, left greater than right and left foraminal narrowing. Electronically Signed: Ethel Mejia MD at 21:58 EDT , Service support , Consultations 12/23/18 20:34 Consult: Onc/Wound/materials tech Routine Comment: Dr. Guerrero- Neurology Dr. Chavez- Nephrology Operations: None Procedures: 2-D Echocardiogram Summary of Care Provided: The patient is a 58 year old M admitted 12/23/2018 due to falls, new right foot drop. 1. New right lower extremity foot drop with associated debility/frequent falls- neurology consulted. Unable to obtain MRI due to AICD. Brain CT without acute infarct. Benign frontal soft tissue lesion, suspect pilar cyst. Cervical spine CT with no acute fracture or subluxation. Mild spondylosis most severe at C6- C7. Lumbar spine CT showed degenerative disc and joint changes. Most severe findings are at L4-L5 with disc narrowing with a posterior annulus bulge, general spinal stenosis narrowing left greater than right and left foraminal narrowing. Neurology recommending spine surgery consult which can be completed as outpatient, referral per PCP. EMG in 3 to 4 weeks as outpatient, to be arranged by PCP. YEIMY/ANCA/RF/Lyme's antibody and ESR results pending. Follow-up with neurology in 6 weeks. Patient declined rehab/home health. Agreeable to outpatient PT. Follow-up with primary care provider in 1 week. 2. Acute kidney injury on chronic kidney disease stage III- nephrology consul panfilo. Renal US completed, results pending. Suspect CHANTALE due to diuretic regimen. Hold Bumex, STACY inhibitor at discharge. Follow-up with Dr. Chavez in 1 week. 3. Primary idiopathic dilated cardiomyopathy status post AICD-diuretic regimen on hold at discharge as noted above. 4. Acute gram-negative UTI-IV Rocephin during admission. Discharged on Keflex 500 mg twice daily for 5 days. 5. Intertrigo-Nystatin powder. 6. Incidental osteochondral lesions medial patellar dome and tiny bony density- outpatient follow-up with orthopedic. Orthopedics contacted on admission and did not feel acute or related to #1. Follow up with Dr. Brown in 1-2 Weeks. 7. Hypertension-stable, continue amlodipine, carvedilol regimen. Lisinopril and Bumex regimen on hold. 8. Hyperlipidemia-not on statin regimen. Fasting lipid panel within normal limits. 9. Type 2 diabetes mellitus-continue home oral regimen. 10. Morbid obesity-encourage diet lifestyle modifications. 11. RAQUEL-noncompliant with CPAP. 12. 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 Wound RN consult. Recommend outpatient follow-up with wound center in 1 week. General: Alert, Oriented x3, Cooperative HEENT: Atraumatic, PERRLA, EOMI, Normocephalic Oral: - - Poor dentition. Neck: Supple, No JVD, Negative Carotid Bruits Lungs: Clear to auscultation, Normal air movement Cardiovascular: Regular rate, Regular Rhythm, Normal S1, Normal S2, No murmurs Abdomen: Bowel Sounds Present, Soft, Non Tender, Non-Distended, Obese Extremities: No clubbing, No cyanosis, No edema, Capillary Refill Less than 3 Seconds Skin: No rashes, No breakdown, - - Chronic venous stasis skin changes bilateral lower extremities. Chronic left lower extremity medial casillas wound following prior skin graft. Mid frontal scalp cyst. Musculoskeletal: No Tenderness to Palpation of Joints or Extremities Neurological: Cranial nerves II-XII grossly intact, Neuro grossly intact Psych/Mental Status: Normal Affect, Appropriate Patient seen and examined prior to discharge. Physical assessment as noted above. Patient is stable for discharge with follow up recommendations as noted above. This patient was seen by SRAVANTHI Howard under the supervision of Dr. Erwin. - Physical Exam Vital Signs Temp Pulse Resp BP Pulse Ox 97.8 F 66 16 147/69 H 96 12/25/18 09:10 12/25/18 09:10 12/25/18 09:10 12/25/18 09:10 12/25/18 09:10 Oxygen Delivery Method Room Air Weight: 337 lb 11.971 oz Body Mass Index (BMI) 47.1 Finger Stick Blood Glucose 307 Intake and Output for Last 24 Hours 12/23/18 12/24/18 12/25/18 23:59 23:59 23:59 Intake Total 702 / 702 6533 / 6533 2464 / 2464 Output Total 2250 / 2250 Balance 702 / 702 4283 / 4283 2464 / 2464 Microbiology Past 72 Hours 12/23/18 19:15 Urine Culture - Preliminary Urine, Clean Catch Gram negative silvia Laboratory Tests Past 24 Hrs 12/24/18 12/24/18 12/24/18 06:30 06:30 11:59 ESR 71 H Sodium Potassium Chloride Carbon Dioxide Anion Gap BUN Creatinine Estim Creat Clear Calc Est GFR (MDRD) Af Amer Est GFR (MDRD) Non-Af BUN/Creatinine Ratio Glucose Calcium U Random Total Protein 34.5 H Ur Random Sodium 80 Urine Creatinine 60.50 Rheumatoid Factor < 10.0 YEIMY Screen c-ANCA Antibody p-ANCA Antibody AVANI-1 Antibody SS-A/Ro IgG Antibody SS-B/La IgG Antibody Sm (Pedraza) Antibody [employer] Antibody Scl-70 Scleroderma Ab Double Strand DNA Ab Centromere B Antibody Lyme Total Antibody 12/24/18 12/24/18 12/25/18 13:08 13:08 05:10 ESR Sodium 142 Potassium 3.7 Chloride 115 H Carbon Dioxide 22.0 Anion Gap 5 BUN 36 H Creatinine 2.34 H Estim Creat Clear Calc 35.75 Est GFR (MDRD) Af Amer 37 L Est GFR (MDRD) Non-Af 30 L BUN/Creatinine Ratio 15.4 Glucose 103 Calcium 8.0 L U Random Total Protein Ur Random Sodium Urine Creatinine Rheumatoid Factor YEIMY Screen Pending c-ANCA Antibody Pending p-ANCA Antibody Pending AVANI-1 Antibody Pending SS-A/Ro IgG Antibody Pending SS-B/La IgG Antibody Pending Sm (Pedraza) Antibody Pending [employer] Antibody Pending Scl-70 Scleroderma Ab Pending Double Strand DNA Ab Pending Centromere B Antibody Pending Lyme Total Antibody Pending POC Glucose 12/25/18 12/25/18 12/24/18 10:54 06:39 21:20 POC Glucose 132 H 93 100 12/24/18 12/24/18 16:10 11:07 POC Glucose 117 H 107 Discharge Diet: Low fat/ Low Cholesterol, 1800 Calorie Control Diet, Carb Control Diet Discharge Activity: Return to Normal Activity, Use Walker Call your doctor if you observe: Shortness of breath, Dizziness, Fainting spells, Chest pain Home Medications: Medications to take at Discharge Allopurinol [Zyloprim] 150 mg PO DAILY 01/27/16 Carvedilol [Coreg (Beta Mary)] 37.5 tab PO BID 01/27/16 Linagliptin [Tradjenta] 5 mg PO DAILY 08/05/17 Amlodipine Besylate 10 mg PO DAILY 12/23/18 Ammonium Lactate 1 applicatio TP DAILY 12/23/18 Latanoprost 0.005% [Xalatan Opthalmic] 1 drop EACH EYE DAILY 12/23/18 Cephalexin [Keflex] 500 mg PO Q12 #10 capsule 12/25/18 Following Prescrptions Were Given to Patient: Cephalexin [Keflex] 500 mg PO Q12 #10 capsule Primary Care Physician: Juany Wylie MD [Primary Care Provider] - Please follow up with your Primary Care Physician in: 1 Week Please Follow Up With: Omaira Chavez DO When: 1-2 Weeks Please Follow Up With: Nathalie Brown DO When: 1-2 Weeks, orthopedic for osteochondral lesions patellar dome Please Follow Up With: Wound Center When: 1 Week Please Follow Up With: Huong Guerrero MD When: 6 Weeks Disposition: Home Minutes spent on discharge:: 35 Patient Condition:: Stable Medical Necessity - Tobacco Use Smoking Status: Never smoker Tobacco Use: Non-smoker Meaningful Use Info Meaningful Use Diagnoses (Choose all that apply): None applicable <Amish Erwin - Last Filed: 12/25/18 14:19> Discharge Date and Diagnosis - Secondary Discharge Diagnosis Chronic Problems Wound of lower extremity (Chronic) CKD (chronic kidney disease), stage III (Chronic) Morbid obesity (Chronic) HTN (hypertension) (Chronic) HLD (hyperlipidemia) (Chronic) RAQUEL (obstructive sleep apnea) (Chronic) Diabetes mellitus, type II (Chronic) Primary idiopathic dilated cardiomyopathy (Chronic) Mitral valve regurgitation (Chronic) CKD (chronic kidney disease), stage II (Chronic) Hospital Course and Treatment Consultations 12/23/18 20:34 Consult: Onc/Wound/materials tech Routine Comment: Summary of Care Provided: [] This patient was seen in conjunction with [employer], Sara. I have independently interviewed and examined the patient and reviewed pertinent history, examination findings, laboratory and plan of management. I have reviewed the note and agree with the documented findings with the few additional points. In brief, the patient is 58-year-old gentleman with multiple comorbidities including idiopathic dilated cardiomyopathy, nonischemic status post AICD, CKD stage III, chronic venous sufficiency with chronic left lower extremity distal wound with history of skin graft was admitted with right leg giving out, right foot drop resulting into fall. Neurologist was consulted. Patient cannot have MRI because of AICD. She had extensive imaging including CT head which showed subcutaneous soft tissue over right frontal convexity, saleem uring 2.1 x 1.5 x 1.[address] with no acute fracture or subluxation. Mild spondylosis most severe at C6-C7. Lumbar spine CT showed degenerative disc and joint changes with the most severe findings are at L4-L5 with disc narrowing with a posterior annulus bulge, general spinal stenosis narrowing left greater than right and left foraminal narrowing. Adjust further recommended surgery consult for degenerative changes of CT spine and lumbar spine. EMG/NCS was recommended after 3 to 4 weeks as an outpatient. Immune antibodies were ordered. PT and OT and right leg brace for foot drop. The patient was advised follow-up outpatient physical therapy. Patient also needs outpatient his spine surgery follow-up for lumbar spinal stenosis, referred by PCP. Right leg brace. Follow-up with urology in 6 weeks for autoimmune antibodies. Patient also has acute kidney injury and CKD stage II: His baseline creatinine is 1.1-1.5, in 2016 and 17. Patient was seen by patient registration clerk. Acute kidney injury mostly secondary to Bumex and STACY inhibitor which are discontinued. UA shows LE 500, WBC 25-57 RBC 5-10 cells. Mild proteinuria. Patient is being discharged off Bumex and STACY inhibitor. Preliminary urine culture shows gram- negative rods 50,000-80,000; suggestive of gram-negative silvia UTI. In view of patient urine retention although denies dysuria, increased frequency urgency, patient was started on IV ceftriaxone and got 2 doses and discharged on Keflex for 5 more days. Echo was done reported as EF 55% with septal motion consistent with IVCD. Left atrium mildly enlarged. Normal right atrium. Normal size and thickness of right ventricle. Normal aortic valve. Patient other comorbidities including hypertension, dyslipidemia, type 2 diabetes mellitus but being taken care as mentioned above. Discharge medication reconciliation done. Discharge follow-up instructions completed. Discharge process discussed with the patient and all questions were answered to patient's satisfaction.. Total time spent, exact 35 minutes on discharge meds reconciliation, examination, review of imaging and blood test and discussion with the patient on follow-up instructions. I have discussed my assessment with [employer] ATTORNEYSara and orders have been reviewed. Microbiology Past 72 Hours 12/23/18 19:15 Urine, Clean Catch Urine Culture - Preliminary Gram negative silvia Laboratory Results 12/24/18 11:59: U Random Total Protein 34.5 H, Ur Random Sodium 80, Urine Creatinine 60.50 12/24/18 16:10: POC Glucose 117 H 12/24/18 21:20: POC Glucose 100 12/25/18 05:10: Sodium 142, Potassium 3.7, Chloride 115 H, Carbon Dioxide 22.0, Anion Gap 5, BUN 36 H, Creatinine 2.34 H, Estim Creat Clear Calc 35.75, Est GFR (MDRD) Af Amer 37 L, Est GFR (MDRD) Non-Af 30 L, BUN/Creatinine Ratio 15.4, Glucose 103, Calcium 8.0 L 12/25/18 06:39: POC Glucose 93 12/25/18 10:54: POC Glucose 132 H 12/25/18 12:30: Urine Creatinine 56.10 12/25/18 12:30: U Random Total Protein 37.4 H Subjective: Patient seen and examined today. Patient still has left foot drop. And had urine retention, about 500 mL postvoid residual and required straight catheterization; possible chronic neurogenic bladder. Patient has history of chronic lumbar spinal stenosis. - Physical Exam General: Alert, Oriented x3, Cooperative HEENT: Atraumatic, PERRLA, EOMI, Normocephalic Neck: Supple, No JVD, Negative Carotid Bruits Lungs: Clear to auscultation, No rhonchi, No wheeze, No rales, Diminished Cardiovascular: Regular rate, Regular Rhythm, Normal S1, Normal S2, No murmurs Abdomen: Bowel Sounds Present, Soft, Non Tender, Non-Distended Extremities: Capillary Refill Less than 3 Seconds, Edema Skin: Ulcer/ Wound, - - Chronic venous stasis skin changes bilateral lower extremities. Chronic left lower extremity medial casillas wound following prior skin graft. Mid frontal scalp cyst. Chronic venous dermatitis. Musculoskeletal: No Tenderness to Palpation of Joints or Extremities, Arthritic Changes, - Neurological: Cranial nerves II-XII grossly intact, Deep Tendon Reflexes 2+/4 and Symmetrical, Sensory exam intact to light touch and pain, - - Plantar reflex downgoing both feet. Right foot dorsiflexion and eversion weakness, 3/5. Plantar flexion is normal. Power 5/5 at bilateral hip and knee joints. Bilateral upper extremity at major joints. Psych/Mental Status: Normal Affect, Appropriate Vital Signs Temp Pulse Resp BP Pulse Ox 97.8 F 66 16 147/69 H 96 12/25/18 09:10 12/25/18 09:10 12/25/18 09:10 12/25/18 09:10 12/25/18 09:10 Oxygen Delivery Method Room Air Weight: 337 lb 11.971 oz Body Mass Index (BMI) 47.1 Finger Stick Blood Glucose 307 Intake and Output for Last 24 Hours 12/23/18 12/24/18 12/25/18 23:59 23:59 23:59 Intake Total 702 / 702 6533 / 6533 2464 / 2464 Output Total 2250 / 2250 Balance 702 / 702 4283 / 4283 2464 / 2464 Microbiology Past 72 Hours 12/23/18 19:15 Urine Culture - Preliminary Urine, Clean Catch Gram negative silvia Laboratory Tests Past 24 Hrs 12/24/18 12/25/18 12/25/18 11:59 05:10 12:30 Sodium 142 Potassium 3.7 Chloride 115 H Carbon Dioxide 22.0 Anion Gap 5 BUN 36 H Creatinine 2.34 H Estim Creat Clear Calc 35.75 Est GFR (MDRD) Af Amer 37 L Est GFR (MDRD) Non-Af 30 L BUN/Creatinine Ratio 15.4 Glucose 103 Calcium 8.0 L U Random Total Protein 34.5 H Ur Random Sodium 80 Urine Creatinine 60.50 56.10 12/25/18 12:30 Sodium Potassium Chloride Carbon Dioxide Anion Gap BUN Creatinine Estim Creat Clear Calc Est GFR (MDRD) Af Amer Est GFR (MDRD) Non-Af BUN/Creatinine Ratio Glucose Calcium U Random Total Protein 37.4 H Ur Random Sodium Urine Creatinine POC Glucose 12/25/18 12/25/18 12/24/18 10:54 06:39 21:20 POC Glucose 132 H 93 100 12/24/18 16:10 POC Glucose 117 H Code Visit Inpatient E&M: 40528 Disch Hosp
[2018-12-25 13:15] LABS: Protein, Urine (Random) 37.4 mg/dL (<11.9)
--- NOTE | 2018-12-27 09:40 | CASEMGMT ---
Per weekend report, pt did not receive WW prior to discharge. [place] to [place] [facility] [place] states that she will check on this and make sure pt gets the walker. Theron MILAN CM
[2018-12-27 16:06] LABS: Cytoplasmic Ab (C-ANCA) <1:20 titer (Neg:<1:20)
[2018-12-28 03:06] LABS: ANTINUCLEAR ANTIBODIES DIRECT Positive (Negative); Anti-Centromere B Ab <0.2 AI (0.0-0.9); Anti-Chromatin 0.3 AI (0.0-0.9); Anti-Jo <0.2 AI (0.0-0.9); Anti-Scleroderma-70 AB <0.2 AI (0.0-0.9); RNP Ab 1.2 AI (0.0-0.9); SJOGREN'S Anti-SS-A test < 0.2 AI (0.0-0.9); SJOGREN'S Anti-SS-B test < 0.2 AI (0.0-0.9); Smith Ab <0.2 AI (0.0-0.9)
[2018-12-28 09:43] LABS: Anti-dsDNA Ab <1 IU/mL (0-9)
[2018-12-28 10:30] LABS: Lyme AB/Total Immuno < 0.91 ISR (0.00-0.90); Perinuclear Ab (P-ANCA) <1:20 titer (Neg:<1:20)
--- NOTE | 2018-12-28 14:49 | CASEMGMT ---
KAYLI CM DC PHONE CALL DC DATE: 12/25/18 DC Disposition: Home LACE/STRATA: 05/19 Attempted call to home phone. No Answer. Tonya ZUÑIGAN RN ACM
== END 2018-12-25 13:42 | disposition home or self-care (01) | DRG 351 ==
LOC: ED 18:38 → PCU 20:12
PROVIDERS: Internal Medicine Nephrology; Nurse Practitioner Family; Psychiatry & Neurology Neurology; Admitting Provider Family Medicine; Emergency Provider Emergency Medicine; Family Provider Internal Medicine; PCP Internal Medicine; Visit Provider Internal Medicine
DX: M21.371 Foot drop, right foot (principal); E66.01 Morbid (severe) obesity due to excess calories; Z68.42 Body mass index [BMI] 45.0-49.9, adult; R53.81 Other malaise; R29.6 Repeated falls; N17.9 Acute kidney failure, unspecified; I42.0 Dilated cardiomyopathy; Z95.810 Presence of automatic (implantable) cardiac defibrillator; N39.0 Urinary tract infection, site not specified; B96.89 Other specified bacterial agents as the cause of diseases classified elsewhere; I12.9 Hypertensive chronic kidney disease with stage 1 through stage 4 chronic kidney disease, or unspecified chronic kidney disease; E11.22 Type 2 diabetes mellitus with diabetic chronic kidney disease; N18.3 Chronic kidney disease, stage 3 (moderate); E78.5 Hyperlipidemia, unspecified; G47.33 Obstructive sleep apnea (adult) (pediatric); M89.9 Disorder of bone, unspecified; L30.4 Erythema intertrigo; T86.829 Unspecified complication of skin graft (allograft) (autograft); Z91.19 Patient's noncompliance with other medical treatment and regimen
CPT/HCPCS: 36415; 70450; 72125; 72131; 73564; 73590; 76770; 80048; 80061; 81001; 82570; 82962; 83036; 83735; 84156; 84300; 84443; 84484; 85025; 85652; 86038; 86225; 86235; 86256; 86431; 86618; 87077; 87086; 87088; 87186; 92610; 93306; 97110; 97162; 97166; 97535; 97802; 99285; J7030; Q9957; A4216; C8929

== ENCOUNTER → 2019-01-13 | Outpatient (CLI) | payer MEDICAID, SELFPAY ==
[2018-12-31 13:51] VITALS: BMI 46.0
[2019-01-13 12:33] LABS: Hematocrit 40.2 % (40-54); Hemoglobin 12.5 g/dl (13.0-16.5); Mean Corp Hgb Conc 31.1 g/gl (32-36); Mean Corpuscular Hgb 25.3 pg (27.0-32.0); Mean Corpuscular Volume 81.2 fL (80-94); Mean Platelet Vol. 10.6 fl (6.2-12.0); Platelet Count 234 K/mm3 (150-450); RBC Distribution Width SD 51.4 fl (35.1-43.9); Red Blood Count 4.95 M/mm3 (4.6-6.2); White Blood Count 9.8 K/mm3 (4.4-11.0)
[2019-01-13 12:36] LABS: Scan Indicated on CBC? Y/N NO
[2019-01-13 12:42] LABS: Albumin, Serum 3.3 g/dL (3.2-5.0); BUN 34 mg/dL (7-18); BUN/Creat Ratio 15.3 RATIO (10-20); Calcium,Total 8.7 mg/dL (8.5-10.1); Chloride 111 mmol/L (98-107); Creatinine, Serum 2.22 mg/dL (0.70-1.30); EST Glomerular Filtration Rate 32 mL/min (>60); Est Glom Filt Rate - Afr Amer 39 mL/min (>60); Glucose 144 mg/dL (74-106); Potassium 3.9 mmol/L (3.5-5.1); Sodium Level 141 mmol/L (136-145)
[2019-01-13 13:04] LABS: PTHIN 130.6 pg/mL (18.4-80.1)
== END | disposition home or self-care (01) ==
LOC: POLAB3 09:44
PROVIDERS: Family Provider Internal Medicine; PCP Internal Medicine; Visit Provider Internal Medicine Nephrology
DX: N17.9 Acute kidney failure, unspecified (principal)
CPT/HCPCS: 36415; 80069; 83970; 85027

== ENCOUNTER 2019-01-14 12:30 | Outpatient (RCR) | payer MEDICAID, SELFPAY ==
[2018-12-24 17:02] VITALS: BMI 47.1
[2018-12-31 13:51] VITALS: BP 146/88; PULSE 75; RESP 18; TEMP 37.5; BMI 46.0
--- NOTE | 2018-12-31 19:14 | HP.PCM_ITS ---
(1) Venous ulcer of left lower extremity without varicose veins Status: Chronic Current Visit: Yes Code(s): I87.2 - Venous insufficiency (chronic) (peripheral); L97.929 - Non-pressure chronic ulcer of unspecified part of left lower leg with unspecified severity (2) H/O skin graft Status: Chronic Current Visit: Yes Code(s): Z94.5 - Skin transplant status (3) CKD (chronic kidney disease), stage III Status: Chronic Current Visit: Yes Code(s): N18.3 - Chronic kidney disease, stage 3 (moderate) (4) Morbid obesity Status: Chronic Current Visit: Yes Code(s): E66.01 - Morbid (severe) obesity due to excess calories (5) HTN (hypertension) Status: Chronic Current Visit: Yes Qualifiers: Hypertension type: essential hypertension Qualified Code(s): I10 - Essential (primary) hypertension Code(s): I10 - Essential (primary) hypertension (6) HLD (hyperlipidemia) Status: Chronic Current Visit: Yes Qualifiers: Hyperlipidemia type: unspecified Qualified Code(s): E78.5 - Hyperlipidemia, unspecified Code(s): E78.5 - Hyperlipidemia, unspecified (7) RAQUEL (obstructive sleep apnea) Status: Chronic Current Visit: Yes Code(s): G47.33 - Obstructive sleep apnea (adult) (pediatric) (8) Diabetes mellitus, type II Status: Chronic Current Visit: Yes Qualifiers: 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 insulin use status Diabetes mellitus complication status: with neurologic complications Diabetes mellitus complication detail: with polyneuropathy Qualified Code(s): E11.42 - Type 2 diabetes mellitus with diabetic polyneuropathy Code(s): E11.9 - Type 2 diabetes mellitus without complications History of Present Illness Date of Service: 12/31/18 Chief Complaint: nonhealing lesion of left lower leg History of Wound: Ernesto is a 58 yo male with PMH of DM type 2, gout, cardiomyopathy with AICD, mitral valve disease and recent h/o possible TIAs and right foot drop that is on disability and lives alone and does not drive who presents to the wound center for evaluation and treatment of a left lower leg ulcer that has been present for approx. 5 years. He was referred by wound care at the hospital after recent admission. He reports having open wounds to both of his legs approx. 10 years ago and had autologous skin grafts to the areas but the left leg had never healed. He had not been using any dressings or ointments to the area and denies any drainage or erythema or swelling to the wound/ulcers in recent weeks/months. Since his hospitalization he has been using ammonium lactate and gauze but has a difficult time dressing his wounds by himself because of his chronic medical conditions and does not have anyone to help him dress his wounds. He was recently on keflex for a UTI and has completed the prescribed course. He denies any fever, chills, erythema, drainage from the ulcer. Past Medical History Past Medical History: Chronic Problems Venous ulcer of left lower extremity without varicose veins (Chronic) H/O skin graft (Chronic) Wound of lower extremity (Chronic) CKD (chronic kidney disease), stage III (Chronic) Morbid obesity (Chronic) HTN (hypertension) (Chronic) HLD (hyperlipidemia) (Chronic) RAQUEL (obstructive sleep apnea) (Chronic) Diabetes mellitus, type II (Chronic) Primary idiopathic dilated cardiomyopathy (Chronic) Mitral valve regurgitation (Chronic) CKD (chronic kidney disease), stage II (Chronic) Surgical History: - - Tonsillectomy, left lower extremity debridement of chronic wound, AICD placement, appendectomy. Allergies/Adverse Reactions: Allergies No Known Allergies Allergy (Verified 12/23/18 17:28) Home Medications: Ambulatory Orders Medication Instructions Recorded Allopurinol [Zyloprim] 150 mg PO DAILY 01/27/16 Carvedilol [Coreg (Beta Mary)] 37.5 tab PO BID 01/27/16 Linagliptin [Tradjenta] 5 mg PO DAILY 08/05/17 Amlodipine Besylate 10 mg PO DAILY 12/23/18 Ammonium Lactate 1 applicatio TP DAILY 12/23/18 Latanoprost 0.005% [Xalatan 1 drop EACH EYE DAILY 12/23/18 Opthalmic] - Family History Maternal Diabetes, Renal Disease Paternal Diabetes, Heart Disease, Hypertension Lives: Alone Smoking Status: Never smoker Tobacco Use: Non-smoker Alcohol: None Drugs: None Review of Systems Constitutional: Denies: Chills, Fever, Weight Change Eyes: Denies: Pain, Vision Change HEENT: Denies: Difficulty Hearing, Difficulty Swallowing, Sinus Congestion Cardiovascular: Denies: Chest Pain, Palpitations Respiratory: Denies: Cough, Shortness of Breath Gastrointestinal: Denies: Diarrhea, Nausea, Vomiting Genitourinary: Denies: Dysuria, Hematuria Musculoskeletal: Reports: Back Pain, Leg Pain Skin: Reports: Skin Changes, Wounds Neurological: Reports: Numbness Endocrine: Denies: Heat/ Cold Intolerance, Polydipsia, Polyuria Hematologic/ Lymphatic: Denies: Easy Bruising, Easy Bleeding - Physical Exam Vital Signs Temp Pulse Resp BP 99.5 F H 75 18 146/88 H 12/31/18 13:51 12/31/18 13:51 12/31/18 13:51 12/31/18 13:51 General: Alert, Oriented x3, Cooperative, No apparent distress HEENT: Atraumatic, Normocephalic Oral: Moist Mucosa Neck: Supple, No JVD Lungs: Clear to auscultation Cardiovascular: Regular rate, Regular Rhythm Abdomen: Soft, Non Tender, Obese Extremities: Edema Skin: Ulcer/ Wound Wound Measurements and Assessment WC - Nurse 1 - General Ulcer Measurement Start: 12/31/18 13:47 Freq: Status: Active Protocol: Activity Type Activity Date Activity User E-Sign Co-Sign Detail Recorded Client Recorded Date Recorded By Document 12/31/18 13:51 RB [id number] 12/31/18 13:58 RB 12/31/18 13:51 Wound Center Nurse 1 [Ulcer Assessment] #1 Medial LLE -Combined with other wound No -Current Size (cm) - Length 5.5 -Current Size (cm) - Width 2.5 -Current Size (cm) - Depth 0.1 -Total Square Cm 13.75 -Photo Taken Yes -Tunneling No -Undermining/Tunneling No -Circular Undermining No -Exudate Amt Medium -Exudate Type Serosanguineous -Wound Margin Distinct, Outline Attached -Granulation Amt Medium (34-66%) -Granulation Quality [place] Red -Slough/Fibrin Yes -Necrosis Amt Small (1-33%) -Necrotic Tissue Type Adherent Slough -Structure Exposed N/A -Texture (Ese-wound Skin Appearance) Assessed -Moisture (Ese-wound Skin Appearance Assessed ) -Color (Ese-wound Skin Appearance) Hemosiderin Staining -Temperature (Ese-wound Skin No Abnormality Appearance) (Pt Warm) -Tenderness on Palpation (Ese-wound No Skin Appearance) -Ulcer Cleansing Wound Cleanser -Foul Odor after Cleansing No -Anesthetic Used 4% Lidocaine Solution [Edema Assessment] -Lower Limb Edema Present Yes -Right Calf (cm) 47.5 -Right Ankle (cm) 25 -Right Foot (cm) 45.5 -Left Calf (cm) 25.5 AR - Nurse 2 - General Ulcer CM Notes Start: 12/31/18 13:47 Freq: Status: Active Protocol: Activity Type Activity Date Activity User E-Sign Co-Sign Detail Recorded Client Recorded Date Recorded By Document 12/31/18 14:48 DV [id number] 12/31/18 14:54 DV 12/31/18 14:48 Wound Center Nurse 2 [Procedure/Treatment] #1 Medial LLE -Time 14:49 -Correct Patient Yes -Correct Side, Site, Position Yes -Correct Procedure Yes -Procedure Performed Yes -Type of Procedure Debridement -Clinical Debridement Subcutaneous -Post Debridement Size (cm) - Length 5.5 -Post Debridement Size (cm) - Width 3.0 -Post Debridement Size (cm) - Depth 0.1 -Total Square Cm 16.50 -Wound/Ulcer Outcome Not Healed -Ulcer Cleansing Rinsed/ Irrigated with Saline -Foul Odor after Cleansing No -Bioengineered Tissue No -Bleeding Controlled with Pressure -Offloading No -Treatment Response Procedure Tolerated Well [See Physician Procedure note for Specifics] Pain Scale: 0-10 Numeric [Pain] -Is Patient Pain Free? Yes Psych/Mental Status: Normal Affect, Appropriate Debridement Note Post-Debridement Measurements/Treatment AR - Nurse 2 - General Ulcer CM Notes Start: 12/31/18 13:47 Freq: Status: Active Protocol: Activity Type Activity Date Activity User E-Sign Co-Sign Detail Recorded Client Recorded Date Recorded By Document 12/31/18 14:48 DV [id number] 12/31/18 14:54 DV 12/31/18 14:48 Wound Center Nurse 2 #1 Medial LLE -Time 14:49 -Correct Patient Yes -Correct Side, Site, Position Yes -Correct Procedure Yes -Procedure Performed Yes -Type of Procedure Debridement -Clinical Debridement Subcutaneous -Post Debridement Size (cm) - Length 5.5 -Post Debridement Size (cm) - Width 3.0 -Post Debridement Size (cm) - Depth 0.1 -Total Square Cm 16.50 -Wound/Ulcer Outcome Not Healed -Ulcer Cleansing Rinsed/ Irrigated with Saline -Foul Odor after Cleansing No -Bioengineered Tissue No -Bleeding Controlled with Pressure -Offloading No -Treatment Response Procedure Tolerated Well Pain Scale: 0-10 Numeric Is Patient Pain Free? Yes Wound debrided: medial left LE Laterality: Left Type of Debridement: Excisional debridement Anesthesia Used: 4% Lidocaine Solution, 5% Lidocaine Gel Depth: Down to and including healthy tissue, in the subcutaneous layer Percentage of wound debrided: 100 Instrument Used: 5mm curette Tissue Removed: yellow slough, devitalized tissue Severity: Fat Layer Exposed Amount of bleeding with debridement: Mild Bleeding Controlled with: Compression and gauze Patient tolerated procedure well Assessment/Plan Active Problems Venous ulcer of left lower extremity without varicose veins (Chronic) H/O skin graft (Chronic) CKD (chronic kidney disease), stage III (Chronic) Morbid obesity (Chronic) HTN (hypertension) (Chronic) HLD (hyperlipidemia) (Chronic) RAQUEL (obstructive sleep apnea) (Chronic) Diabetes mellitus, type II (Chronic) Assessment: medial left LE venous ulcer complicated by h/o autologous skin graft Plan: Ernesto's ulcer was evaluated and debrided today. A wound culture was taken to r/o underlying infection as a cause of delayed healing. Will have him use Shani changed every other day as a dressing for moderate drainage. Will try to set up Home Health to assist him with his dressing changes. Will use tubigrips for compression. Vascular testing ordered and scheduled. His A1C was 7.3% 12/23/18. Other labs are unremarkable. Encouraged better glycemic control, increased protein intake, elevation of his legs and avoiding idle standing to assist in healing his ulcer. Will treat with antibiotics if indicated based on his culture. F/U in 1 week.
--- NOTE | 2019-01-14 09:09 | VDLE_ITS ---
Reason For Study: Pain/Swelling RIGHT LEFT CFV is compressible, spontaneous, phasic, CFV is compressible, spontaneous, phasic, competent and demonstrates normal competent, and demonstrates normal augmentation. augmentation. FV is compressible, spontaneous, phasic, FV is compressible, spontaneous, phasic, competent and demonstrates normal competent and demonstrates normal augmentation. augmentation. POP V is compressible, spontaneous, phasic, POP V is compressible, spontaneous, phasic, competent and demonstrates normal competent and demonstrates normal augmentation. augmentation. T/P Trunk is compressible. T/P Trunk is compressible. PTV is compressible. PTV is compressible. RT PerV is compressible. LT PerV is compressible. SFJ is INCOMPETENT. SFJ is competent. GSV is INCOMPETENT throughout for greater GSV is INCOMPETENT throughout for greater than 0.5 secondsand measures 0.63 x 0.67 cm. than 0.5 seconds and measures 0.61 x 0.65 cm. ASV below knee is INCOMPETENT for greater ASV below knee is INCOMPETENT for greater than 0.5 seconds and measures 0.65 x 0.75 cm. than 0.5 seconds and measures 0.40 x 0.41 cm. INCOMPETENT preforator noted 12 cm and 23 cm SSV is competent. above medial malleolus. SSV is competent. Procedure Exam performed in department. Interpretation Summary Deep veins of the lower extremities are bilaterally patent and compressible segmentally. There is no evidence of deep vein thrombosis on either side. Valvular competence appears intact within the proximal deep venous systems bilaterally. The greater saphenous veins appear bilaterally patent and compressible segmentally. The right sapheno-femoral junction is incompetent . The left sapheno- femoral junction is competent . Segmental valvular incompetence is noted within the greater saphenous veins bilaterally. Small saphenous veins are patent and competent bilaterally. An incompetent accessory saphenous vein is noted below the knee in each lower extremity. Incompetent motel front desk attendant veins are noted in the right calf, located 12 centimeters and 23 centimeters proximal to the right medial malleolus. Ordering Physician: Padmaja Fields Referring Physician: Juany Wylie M.D. Performed By: Megha Velazquez RVT
--- NOTE | 2019-01-14 09:10 | ART_ITS ---
Reason For Study: Pain/Swelling Procedure A bilateral lower extremity continuous wave Doppler with analog waveform analysis,segmental pressures,and ankle brachial indexes without exercise. Left Segmental Pressures Left brachial= 151mmHg. Left posterior tibial artery = 199mmHg. Left dorsalis pedis artery = 188mmHg. Left digit = 156 mmHg. The left dorsalis pedis waveforms are triphasic. The left posterior tibial artery waveforms are triphasic. Right Segmental Pressures Right brachial= 163mmHg. Right posterior tibial artery = 179mmHg. Right dorsalis pedis artery = 169mmHg. Right digit = 128 mmHg. The right dorsalis pedis waveforms are triphasic. The right posterior tibial artery waveforms are triphasic. Indices The right ankle brachial index by the dorsalis pedis is 1.04. The right ankle brachial index by the posterior tibial artery is 1.10. The right digital-brachial index is 0.79. The left ankle brachial index by the dorsalis pedis is 1.15. The left ankle brachial index by the posterior tibial artery is 1.22. The left digital-brachial index is 0.96. Interpretation Summary Triphasic Doppler waveforms are noted at ankle level bilaterally. Pulse-volume recording waveform amplitudes are satisfactory at all levels bilaterally, including calf, ankle, and digital levels. Resting ankle-brachial indices are normal bilaterally. Digital-brachial indices are bilaterally normal. There is no evidence of significant arterial occlusive disease in the lower extremities bilaterally. Ordering Physician: Padmaja Fields Referring Physician: Juany Wylie M.D. Performed By: Megha Velazquez RVT
[2019-01-14 12:31] VITALS: BP 168/96; PULSE 79; RESP 18; TEMP 37.6; BMI 46.0
--- NOTE | 2019-01-14 15:40 | PCM.WC.PN ---
(1) Venous ulcer of left lower extremity without varicose veins Status: Chronic Current Visit: Yes Code(s): I87.2 - Venous insufficiency (chronic) (peripheral); L97.929 - Non-pressure chronic ulcer of unspecified part of left lower leg with unspecified severity (2) H/O skin graft Status: Chronic Current Visit: Yes Code(s): Z94.5 - Skin transplant status (3) CKD (chronic kidney disease), stage III Status: Chronic Current Visit: Yes Code(s): N18.3 - Chronic kidney disease, stage 3 (moderate) (4) Morbid obesity Status: Chronic Current Visit: Yes Code(s): E66.01 - Morbid (severe) obesity due to excess calories (5) HTN (hypertension) Status: Chronic Current Visit: Yes Qualifiers: Hypertension type: essential hypertension Qualified Code(s): I10 - Essential (primary) hypertension Code(s): I10 - Essential (primary) hypertension (6) HLD (hyperlipidemia) Status: Chronic Current Visit: Yes Qualifiers: Hyperlipidemia type: unspecified Qualified Code(s): E78.5 - Hyperlipidemia, unspecified Code(s): E78.5 - Hyperlipidemia, unspecified (7) RAQUEL (obstructive sleep apnea) Status: Chronic Current Visit: Yes Code(s): G47.33 - Obstructive sleep apnea (adult) (pediatric) (8) Diabetes mellitus, type II Status: Chronic Current Visit: Yes Qualifiers: Diabetes mellitus long-term insulin use: unspecified manager long term care insulin use status Diabetes mellitus complication status: with neurologic complications Diabetes mellitus complication detail: with polyneuropathy Qualified Code(s): E11.42 - Type 2 diabetes mellitus with diabetic polyneuropathy Code(s): E11.9 - Type 2 diabetes mellitus without complications Type of Wound Date of Service: 01/14/19 Chief Complaint: nonhealing lesion of left lower leg History of Wound: Ernesto is a 58 yo male with PMH of DM type 2, gout, cardiomyopathy with AICD, mitral valve disease and recent h/o possible TIAs and right foot drop that is on disability and lives alone and does not drive who presents to the wound center for evaluation and treatment of a left lower leg ulcer that has been present for approx. 5 years. He was referred by wound care at the hospital after recent admission. He reports having open wounds to both of his legs approx. 10 years ago and had autologous skin grafts to the areas but the left leg had never healed. He had not been using any dressings or ointments to the area and denies any drainage or erythema or swelling to the wound/ulcers in recent weeks/months. Since his hospitalization he has been using ammonium lactate and gauze but has a difficult time dressing his wounds by himself because of his chronic medical conditions and does not have anyone to help him dress his wounds. He was recently on keflex for a UTI and has completed the prescribed course. He denies any fever, chills, erythema, drainage from the ulcer. Progress of Wound: Ernesto's ulcer is somewhat improved on evaluation today. He did not tolerate doxycycline due to diarrhea. He did take the medication for almost 7 days. He has not been contacted by [facility] yet. He has been doing his best to change his dressings and wear his compression. He had vascular testing done today prior to his appointment which showed venous insufficiency bilaterally and normal arterial testing. He denies any increased drainage or odor or erythema to his ulcers. - Physical Exam Vital Signs Temp Pulse Resp BP 99.6 F H 79 18 168/96 H 01/14/19 12:31 01/14/19 12:31 01/14/19 12:31 01/14/19 12:31 General: Alert, Oriented x3, Cooperative, No apparent distress HEENT: Atraumatic, Normocephalic Oral: Moist Mucosa Abdomen: Obese Skin: Ulcer/ Wound Wound Measurements and Assessment WC - Nurse 1 - General Ulcer Measurement Start: 12/31/18 13:47 Freq: Status: Active Protocol: Activity Type Activity Date Activity User E-Sign Co-Sign Detail Recorded Client Recorded Date Recorded By Document 01/14/19 12:31 [id number] 01/14/19 12:45 RB 01/14/19 12:31 Wound Center Nurse 1 [Ulcer Assessment] #1 Medial LLE -Combined with other wound No -Current Size (cm) - Length 5.8 -Current Size (cm) - Width 2.7 -Current Size (cm) - Depth 0.1 -Total Square Cm 15.66 -Tunneling No -Undermining/Tunneling No -Circular Undermining No -Exudate Amt Small -Exudate Type Serosanguineous -Wound Margin Distinct, Outline Attached -Granulation Amt Large (67-100%) -Granulation Quality [place] Red -Slough/Fibrin Yes -Necrosis Amt Small (1-33%) -Necrotic Tissue Type Adherent Slough -Structure Exposed N/A -Texture (Ese-wound Skin Appearance) Assessed -Moisture (Ese-wound Skin Appearance Assessed ) -Color (Ese-wound Skin Appearance) Assessed -Temperature (Ese-wound Skin No Abnormality Appearance) (Pt Warm) -Tenderness on Palpation (Ese-wound No Skin Appearance) -Ulcer Cleansing Wound Cleanser -Foul Odor after Cleansing No -Anesthetic Used 5% Lidocaine Gel [Edema Assessment] -Lower Limb Edema Present Yes -Right Calf (cm) 50.5 -Right Ankle (cm) 25.5 -Left Calf (cm) 45 -Left Ankle (cm) 26.5 WC - Nurse 2 - General Ulcer CM Notes Start: 12/31/18 13:47 Freq: Status: Active Protocol: Activity Type Activity Date Activity User E-Sign Co-Sign Detail Recorded Client Recorded Date Recorded By Document 01/14/19 12:50 MW [id number] 01/14/19 13:02 MW 01/14/19 12:50 Wound Center Nurse 2 [Procedure/Treatment[facility] 12[facility] -Correct Patient Yes -Correct Side, Site, Position Yes -Correct Procedure Yes -Procedure Performed Yes -Type of Procedure Debridement -Clinical Debridement Subcutaneous -Post Debridement Size (cm) - Length 6.5 -Post Debridement Size (cm) - Width 2.3 -Post Debridement Size (cm) - Depth 0.1 -Total Square Cm 14.95 -Wound/Ulcer Outcome Not Healed -Ulcer Cleansing Rinsed/ Irrigated with Saline -Foul Odor after Cleansing No -Bioengineered Tissue No -Bleeding Controlled with Pressure -Offloading No -Treatment Response Procedure Tolerated Well [See Physician Procedure note for Specifics] Pain Scale: 0-10 Numeric [Pain] -Is Patient Pain Free? Yes Psych/Mental Status: Normal Affect, Appropriate Debridement Note Post-Debridement Measurements/Treatment WC - Nurse 2 - General Ulcer CM Notes Start: 12/31/18 13:47 Freq: Status: Active Protocol: Activity Type Activity Date Activity User E-Sign Co-Sign Detail Recorded Client Recorded Date Recorded By Document 12/31/18 14:48 DV [id number] 12/31/18 14:54 DV Document 01/14/19 12:50 MW [id number] 01/14/19 13:02 MW 12/31/18 01/14/19 14:48 12:50 Wound Center Nurse 2 #1 Medial LLE -Time 14:49 12:50 -Correct Patient Yes Yes -Correct Side, Site, Position Yes Yes -Correct Procedure Yes Yes -Procedure Performed Yes Yes -Type of Procedure Debridement Debridement -Clinical Debridement Subcutaneous Subcutaneous -Post Debridement Size (cm) - Length 5.5 6.5 -Post Debridement Size (cm) - Width 3.0 2.3 -Post Debridement Size (cm) - Depth 0.1 0.1 -Total Square Cm 16.50 14.95 -Wound/Ulcer Outcome Not Healed Not Healed -Ulcer Cleansing Rinsed/ Rinsed/ Irrigated with Irrigated with Saline Saline -Foul Odor after Cleansing No No -Bioengineered Tissue No No -Bleeding Controlled with Pressure Pressure -Offloading No No -Treatment Response Procedure Procedure Tolerated Well Tolerated Well Pain Scale: 0-10 Numeric Is Patient Pain Free? Yes Yes Wound debrided: medial left LE Laterality: Left Type of Debridement: Excisional debridement Anesthesia Used: 4% Lidocaine Solution, 5% Lidocaine Gel Depth: Down to and including healthy tissue, in the subcutaneous layer Percentage of wound debrided: 100 Instrument Used: 5mm curette Tissue Removed: yellow slough, devitalized tissue Severity: Fat Layer Exposed Amount of bleeding with debridement: Mild Bleeding Controlled with: Compression and gauze Patient tolerated procedure well Assessment/Plan Active Problems Venous ulcer of left lower extremity without varicose veins (Chronic) H/O skin graft (Chronic) CKD (chronic kidney disease), stage III (Chronic) Morbid obesity (Chronic) HTN (hypertension) (Chronic) HLD (hyperlipidemia) (Chronic) RAQUEL (obstructive sleep apnea) (Chronic) Diabetes mellitus, type II (Chronic) Assessment: medial left LE venous ulcer complicated by h/o autologous skin graft Plan: Ernesto's ulcer was evaluated and debrided today. Will have him continue to use Shani changed every other day as a dressing for moderate drainage. He would benefit from assistance with his dressings from Home Health. They have been consulted. Will continue to use double layer tubigrips for compression. Vascular testing showed incompetence of veins in his lower extremities bilaterally. A vascular referral has been placed for Dr. Mae for evaluation for EVLA. His A1C was 7.3% 12/23/18. Other labs are unremarkable. Encouraged better glycemic control, increased protein intake, elevation of his legs and avoiding idle standing to assist in healing his ulcer. F/U in 1 week.
--- NOTE | 2019-01-14 15:46 | PN.PCM_ITS ---
(1) Venous ulcer of left lower extremity without varicose veins Status: Chronic Current Visit: Yes Code(s): I87.2 - Venous insufficiency (chronic) (peripheral); L97.929 - Non-pressure chronic ulcer of unspecified part of left lower leg with unspecified severity (2) H/O skin graft Status: Chronic Current Visit: Yes Code(s): Z94.5 - Skin transplant status (3) CKD (chronic kidney disease), stage III Status: Chronic Current Visit: Yes Code(s): N18.3 - Chronic kidney disease, stage 3 (moderate) (4) Morbid obesity Status: Chronic Current Visit: Yes Code(s): E66.01 - Morbid (severe) obesity due to excess calories (5) HTN (hypertension) Status: Chronic Current Visit: Yes Qualifiers: Hypertension type: essential hypertension Qualified Code(s): I10 - Essential (primary) hypertension Code(s): I10 - Essential (primary) hypertension (6) HLD (hyperlipidemia) Status: Chronic Current Visit: Yes Qualifiers: Hyperlipidemia type: unspecified Qualified Code(s): E78.5 - Hyperlipidemia, unspecified Code(s): E78.5 - Hyperlipidemia, unspecified (7) RAQUEL (obstructive sleep apnea) Status: Chronic Current Visit: Yes Code(s): G47.33 - Obstructive sleep apnea (adult) (pediatric) (8) Diabetes mellitus, type II Status: Chronic Current Visit: Yes Qualifiers: Diabetes mellitus custodial insulin use: unspecified intermediate accountant insulin use status Diabetes mellitus complication status: with neurologic complications Diabetes mellitus complication detail: with polyneuropathy Qualified Code(s): E11.42 - Type 2 diabetes mellitus with diabetic polyneuropathy Code(s): E11.9 - Type 2 diabetes mellitus without complications Type of Wound Date of Service: 01/14/19 Chief Complaint: nonhealing lesion of left lower leg History of Wound: Ernesto is a 58 yo male with PMH of DM type 2, gout, cardiomyopathy with AICD, mitral valve disease and recent h/o possible TIAs and right foot drop that is on disability and lives alone and does not drive who presents to the wound center for evaluation and treatment of a left lower leg ulcer that has been present for approx. 5 years. He was referred by wound care at the hospital after recent admission. He reports having open wounds to both of his legs approx. 10 years ago and had autologous skin grafts to the areas but the left leg had never healed. He had not been using any dressings or ointments to the area and denies any drainage or erythema or swelling to the wound/ulcers in recent weeks/months. Since his hospitalization he has been using ammonium lactate and gauze but has a difficult time dressing his wounds by himself because of his chronic medical conditions and does not have anyone to help him dress his wounds. He was recently on keflex for a UTI and has completed the prescribed course. He denies any fever, chills, erythema, drainage from the ulcer. Progress of Wound: Ernesto's ulcer is somewhat improved on evaluation today. He did not tolerate doxycycline due to diarrhea. He did take the medication for almost 7 days. He has not been contacted by [facility] yet. He has been doing his best to change his dressings and wear his compression. He had vascular testing done today prior to his appointment which showed venous insufficiency bilaterally and normal arterial testing. He denies any increased drainage or odor or erythema to his ulcers. - Physical Exam Vital Signs Temp Pulse Resp BP 99.6 F H 79 18 168/96 H 01/14/19 12:31 01/14/19 12:31 01/14/19 12:31 01/14/19 12:31 General: Alert, Oriented x3, Cooperative, No apparent distress HEENT: Atraumatic, Normocephalic Oral: Moist Mucosa Abdomen: Obese Skin: Ulcer/ Wound Wound Measurements and Assessment WC - Nurse 1 - General Ulcer Measurement Start: 12/31/18 13:47 Freq: Status: Active Protocol: Activity Type Activity Date Activity User E-Sign Co-Sign Detail Recorded Client Recorded Date Recorded By Document 01/14/19 12:31 [id number] 01/14/19 12:45 RB 01/14/19 12:31 Wound Center Nurse 1 [Ulcer Assessment] #1 Medial LLE -Combined with other wound No -Current Size (cm) - Length 5.8 -Current Size (cm) - Width 2.7 -Current Size (cm) - Depth 0.1 -Total Square Cm 15.66 -Tunneling No -Undermining/Tunneling No -Circular Undermining No -Exudate Amt Small -Exudate Type Serosanguineous -Wound Margin Distinct, Outline Attached -Granulation Amt Large (67-100%) -Granulation Quality [place] Red -Slough/Fibrin Yes -Necrosis Amt Small (1-33%) -Necrotic Tissue Type Adherent Slough -Structure Exposed N/A -Texture (Ese-wound Skin Appearance) Assessed -Moisture (Ese-wound Skin Appearance Assessed ) -Color (Ese-wound Skin Appearance) Assessed -Temperature (Ese-wound Skin No Abnormality Appearance) (Pt Warm) -Tenderness on Palpation (Ese-wound No Skin Appearance) -Ulcer Cleansing Wound Cleanser -Foul Odor after Cleansing No -Anesthetic Used 5% Lidocaine Gel [Edema Assessment] -Lower Limb Edema Present Yes -Right Calf (cm) 50.5 -Right Ankle (cm) 25.5 -Left Calf (cm) 45 -Left Ankle (cm) 26.5 WC - Nurse 2 - General Ulcer CM Notes Start: 12/31/18 13:47 Freq: Status: Active Protocol: Activity Type Activity Date Activity User E-Sign Co-Sign Detail Recorded Client Recorded Date Recorded By Document 01/14/19 12:50 MW [id number] 01/14/19 13:02 MW 01/14/19 12:50 [facility] -Correct Patient Yes -Correct Side, Site, Position Yes -Correct Procedure Yes -Procedure Performed Yes -Type of Procedure Debridement -Clinical Debridement Subcutaneous -Post Debridement Size (cm) - Length 6.5 -Post Debridement Size (cm) - Width 2.3 -Post Debridement Size (cm) - Depth 0.1 -Total Square Cm 14.95 -Wound/Ulcer Outcome Not Healed -Ulcer Cleansing Rinsed/ Irrigated with Saline -Foul Odor after Cleansing No -Bioengineered Tissue No -Bleeding Controlled with Pressure -Offloading No -Treatment Response Procedure Tolerated Well [See Physician Procedure note for Specifics] Pain Scale: 0-10 Numeric [Pain] -Is Patient Pain Free? Yes Psych/Mental Status: Normal Affect, Appropriate Debridement Note Post-Debridement Measurements/Treatment WC - Nurse 2 - General Ulcer CM Notes Start: 12/31/18 13:47 Freq: Status: Active Protocol: Activity Type Activity Date Activity User E-Sign Co-Sign Detail Recorded Client Recorded Date Recorded By Document 12/31/18 14:48 DV [id number] 12/31/18 14:54 DV Document 01/14/19 12:50 MW [id number] 01/14/19 13:02 MW 12/31/18 01/14/19 14:48 12:50 Wound Center Nurse 2 #1 Medial LLE -Time 14:49 12:50 -Correct Patient Yes Yes -Correct Side, Site, Position Yes Yes -Correct Procedure Yes Yes -Procedure Performed Yes Yes -Type of Procedure Debridement Debridement -Clinical Debridement Subcutaneous Subcutaneous -Post Debridement Size (cm) - Length 5.5 6.5 -Post Debridement Size (cm) - Width 3.0 2.3 -Post Debridement Size (cm) - Depth 0.1 0.1 -Total Square Cm 16.50 14.95 -Wound/Ulcer Outcome Not Healed Not Healed -Ulcer Cleansing Rinsed/ Rinsed/ Irrigated with Irrigated with Saline Saline -Foul Odor after Cleansing No No -Bioengineered Tissue No No -Bleeding Controlled with Pressure Pressure -Offloading No No -Treatment Response Procedure Procedure Tolerated Well Tolerated Well Pain Scale: 0-10 Numeric Is Patient Pain Free? Yes Yes Wound debrided: medial left LE Laterality: Left Type of Debridement: Excisional debridement Anesthesia Used: 4% Lidocaine Solution, 5% Lidocaine Gel Depth: Down to and including healthy tissue, in the subcutaneous layer Percentage of wound debrided: 100 Instrument Used: 5mm curette Tissue Removed: yellow slough, devitalized tissue Severity: Fat Layer Exposed Amount of bleeding with debridement: Mild Bleeding Controlled with: Compression and gauze Patient tolerated procedure well Assessment/Plan Active Problems Venous ulcer of left lower extremity without varicose veins (Chronic) H/O skin graft (Chronic) CKD (chronic kidney disease), stage III (Chronic) Morbid obesity (Chronic) HTN (hypertension) (Chronic) HLD (hyperlipidemia) (Chronic) RAQUEL (obstructive sleep apnea) (Chronic) Diabetes mellitus, type II (Chronic) Assessment: medial left LE venous ulcer complicated by h/o autologous skin graft Plan: Ernesto's ulcer was evaluated and debrided today. Will have him continue to use Shani changed every other day as a dressing for moderate drainage. He would benefit from assistance with his dressings from Home Health. They have been consulted. Will continue to use double layer tubigrips for compression. Vascular testing showed incompetence of veins in his lower extremities bilaterally. A vascular referral has been placed for Dr. Mae for evaluation for EVLA. His A1C was 7.3% 12/23/18. Other labs are unremarkable. Encouraged better glycemic control, increased protein intake, elevation of his legs and avoiding idle standing to assist in healing his ulcer. F/U in 1 week.
== END 2019-01-14 23:59 ==
LOC: WC 12:30
PROVIDERS: Family Provider Internal Medicine; PCP Internal Medicine; Referring Provider Family Medicine; Visit Provider Family Medicine
DX: E11.622 Type 2 diabetes mellitus with other skin ulcer (principal); I87.2 Venous insufficiency (chronic) (peripheral); L97.822 Non-pressure chronic ulcer of other part of left lower leg with fat layer exposed; Z94.5 Skin transplant status; E11.22 Type 2 diabetes mellitus with diabetic chronic kidney disease; N18.3 Chronic kidney disease, stage 3 (moderate); I12.9 Hypertensive chronic kidney disease with stage 1 through stage 4 chronic kidney disease, or unspecified chronic kidney disease; E66.01 Morbid (severe) obesity due to excess calories; E78.5 Hyperlipidemia, unspecified; Z68.42 Body mass index [BMI] 45.0-49.9, adult; Z71.3 Dietary counseling and surveillance; G47.33 Obstructive sleep apnea (adult) (pediatric); E11.42 Type 2 diabetes mellitus with diabetic polyneuropathy; M10.9 Gout, unspecified; Z79.899 Other long term (current) drug therapy; Z95.810 Presence of automatic (implantable) cardiac defibrillator; I42.0 Dilated cardiomyopathy
CPT/HCPCS: 11042; 87070; 87075; 87077; 87186; 87205; 93923; 93970; 99213; G0463

== ENCOUNTER 2019-02-11 14:00 | Outpatient (RCR) | payer MEDICAID, SELFPAY ==
[2019-01-15 01:22] VITALS: BP 168/96; PULSE 79; RESP 18; TEMP 37.6
[2019-01-21 12:32] VITALS: BP 165/93; PULSE 73; RESP 18; TEMP 37.2; BMI 46.0
--- NOTE | 2019-01-21 17:20 | PCM.WC.PN ---
(1) Venous ulcer of left lower extremity without varicose veins Status: Chronic Current Visit: Yes Code(s): I87.2 - Venous insufficiency (chronic) (peripheral); L97.929 - Non-pressure chronic ulcer of unspecified part of left lower leg with unspecified severity (2) H/O skin graft Status: Chronic Current Visit: Yes Code(s): Z94.5 - Skin transplant status (3) CKD (chronic kidney disease), stage III Status: Chronic Current Visit: Yes Code(s): N18.3 - Chronic kidney disease, stage 3 (moderate) (4) HTN (hypertension) Status: Chronic Current Visit: Yes Qualifiers: Hypertension type: essential hypertension Code(s): I10 - Essential (primary) hypertension Type of Wound Date of Service: 01/21/19 Chief Complaint: nonhealing lesion of left lower leg History of Wound: Ernesto is a 58 yo male with PMH of DM type 2, gout, cardiomyopathy with AICD, mitral valve disease and recent h/o possible TIAs and right foot drop that is on disability and lives alone and does not drive who presents to the wound center for evaluation and treatment of a left lower leg ulcer that has been present for approx. 5 years. He was referred by wound care at the hospital after recent admission. He reports having open wounds to both of his legs approx. 10 years ago and had autologous skin grafts to the areas but the left leg had never healed. He had not been using any dressings or ointments to the area and denies any drainage or erythema or swelling to the wound/ulcers in recent weeks/months. Since his hospitalization he has been using ammonium lactate and gauze but has a difficult time dressing his wounds by himself because of his chronic medical conditions and does not have anyone to help him dress his wounds. He was recently on keflex for a UTI and has completed the prescribed course. He denies any fever, chills, erythema, drainage from the ulcer. Progress of Wound: Ernesto's ulcers is somewhat improved on evaluation today. He has not been contacted by [facility] yet. He has been doing his best to change his dressings and wear his compression. He had vascular testing done 01/15/19 which showed venous insufficiency bilaterally and normal arterial testing. He denies any increased drainage or odor or erythema to his ulcers. - Physical Exam Vital Signs Temp Pulse Resp BP 99.0 F 73 18 165/93 H 01/21/19 12:32 01/21/19 12:32 01/21/19 12:32 01/21/19 12:32 General: Alert, Oriented x3, Cooperative, No apparent distress HEENT: Atraumatic, Normocephalic Oral: Moist Mucosa Neck: Supple Lungs: Clear to auscultation Cardiovascular: Regular rate, Regular Rhythm Abdomen: Soft, Non Tender, Obese Extremities: Edema Skin: Ulcer/ Wound Wound Measurements and Assessment WC - Nurse 1 - General Ulcer Measurement Start: 01/21/19 10:54 Freq: Status: Active Protocol: Activity Type Activity Date Activity User E-Sign Co-Sign Detail Recorded Client Recorded Date Recorded By Document 01/21/19 12:32 DV [id number] 01/21/19 12:44 DV 01/21/19 12:32 Wound Center Nurse 1 [Ulcer Assessment] #2 Medial LLE -Inferior -Combined with other wound No -Current Size (cm) - Length 2.0 -Current Size (cm) - Width 1.0 -Current Size (cm) - Depth 0.1 -Total Square Cm 2.00 -Photo Taken No -Epithelialization None Present -Tunneling No -Undermining/Tunneling No -Circular Undermining No -Classification - Thickness Full Thickness without Exposed Support Structure -Exudate Amt Medium -Exudate Type Serosanguineous -Wound Margin Flat & Intact -Granulation Amt Medium (34-66%) -Granulation Quality Red -Slough/Fibrin Yes -Necrosis Amt Medium (34-66%) -Necrotic Tissue Type Adherent Slough -Structure Exposed None/Limited to Skin Breakdown -Texture (Ese-wound Skin Appearance) Assessed Localized Edema Scarring -Moisture (Ese-wound Skin Appearance Assessed ) Weeping -Color (Ese-wound Skin Appearance) Assessed Erythema -Temperature (Ese-wound Skin No Abnormality Appearance) (Pt Warm) -Tenderness on Palpation (Ese-wound No Skin Appearance) -Ulcer Cleansing soap -Anesthetic Used 4% Lidocaine Solution #1 Medial LLE- Superior -Combined with other wound No -Current Size (cm) - Length 3.2 -Current Size (cm) - Width 1.5 -Current Size (cm) - Depth 0.1 -Total Square Cm 4.80 -Photo Taken No -Epithelialization None Present -Tunneling No -Undermining/Tunneling No -Circular Undermining No -Classification - Thickness Full Thickness without Exposed Support Structure -Exudate Type Sanguineous -Wound Margin Indistinct, Non -Visible -Granulation Amt None Present (0 %) -Granulation Quality N/A -Slough/Fibrin Yes -Foul Odor after Cleansing No -Anesthetic Used 4% Lidocaine Solution [Edema Assessment] -Lower Limb Edema Present Yes -Left Calf (cm) 45.2 -Left Ankle (cm) 26.0 AR - Nurse 2 - General Ulcer CM Notes Start: 01/21/19 10:54 Freq: Status: Active Protocol: Activity Type Activity Date Activity User E-Sign Co-Sign Detail Recorded Client Recorded Date Recorded By Document 01/21/19 12:45 DV [id number] 01/21/19 12:53 DV 01/21/19 12:45 Wound Center Nurse 2 [Procedure/Treatment] #2 Medial LLE -Inferior -Time 12:46 -Correct Patient Yes -Correct Side, Site, Position Yes -Correct Procedure Yes -Procedure Performed Yes -Type of Procedure Debridement -Clinical Debridement Subcutaneous -Post Debridement Size (cm) - Length 1.6 -Post Debridement Size (cm) - Width 1.0 -Post Debridement Size (cm) - Depth 0.1 -Total Square Cm 1.60 -Wound/Ulcer Outcome Not Healed -Ulcer Cleansing Rinsed/ Irrigated with Saline -Foul Odor after Cleansing No -Bioengineered Tissue No -Bleeding Controlled with Pressure -Offloading No -Treatment Response Procedure Tolerated Well #1 Medial LLE- Superior -Time 12:50 -Correct Patient Yes -Correct Side, Site, Position Yes -Correct Procedure Yes -Procedure Performed Yes -Type of Procedure Debridement -Clinical Debridement Subcutaneous -Post Debridement Size (cm) - Length 3.0 -Post Debridement Size (cm) - Width 1.8 -Post Debridement Size (cm) - Depth 0.1 -Total Square Cm 5.40 -Wound/Ulcer Outcome Not Healed -Ulcer Cleansing Rinsed/ Irrigated with Saline -Foul Odor after Cleansing No -Bioengineered Tissue No -Bleeding Controlled with Pressure -Offloading No -Treatment Response Procedure Tolerated Well [See Physician Procedure note for Specifics] Pain Scale: 0-10 Numeric [Pain] -Is Patient Pain Free? Yes Psych/Mental Status: Normal Affect, Appropriate Debridement Note Post-Debridement Measurements/Treatment AR - Nurse 2 - General Ulcer CM Notes Start: 01/21/19 10:54 Freq: Status: Active Protocol: Activity Type Activity Date Activity User E-Sign Co-Sign Detail Recorded Client Recorded Date Recorded By Document 01/21/19 12:45 DV [id number] 01/21/19 12:53 DV 01/21/19 12:45 Wound Center Nurse 2 #2 [facility] -Inferior -Time 12:46 -Correct Patient Yes -Correct Side, Site, Position Yes -Correct Procedure Yes -Procedure Performed Yes -Type of Procedure Debridement -Clinical Debridement Subcutaneous -Post Debridement Size (cm) - Length 1.6 -Post Debridement Size (cm) - Width 1.0 -Post Debridement Size (cm) - Depth 0.1 -Total Square Cm 1.60 -Wound/Ulcer Outcome Not Healed -Ulcer Cleansing Rinsed/ Irrigated with Saline -Foul Odor after Cleansing No -Bioengineered Tissue No -Bleeding Controlled with Pressure -Offloading No -Treatment Response [facility] -Time 12:50 -Correct Patient Yes -Correct Side, Site, Position Yes -Correct Procedure Yes -Procedure Performed Yes -Type of Procedure Debridement -Clinical Debridement Subcutaneous -Post Debridement Size (cm) - Length 3.0 -Post Debridement Size (cm) - Width 1.8 -Post Debridement Size (cm) - Depth 0.1 -Total Square Cm 5.40 -Wound/Ulcer Outcome Not Healed -Ulcer Cleansing Rinsed/ Irrigated with Saline -Foul Odor after Cleansing No -Bioengineered Tissue No -Bleeding Controlled with Pressure -Offloading No -Treatment Response Procedure Tolerated Well Pain Scale: 0-10 Numeric Is Patient Pain Free? Yes Wound debrided: medial LLE - inferior Laterality: Left Type of Debridement: Excisional debridement Anesthesia Used: 4% Lidocaine Solution, 5% Lidocaine Gel Depth: Down to and including healthy tissue, in the subcutaneous layer Percentage of wound debrided: 100 Instrument Used: 5mm curette Tissue Removed: yellow slough, devitalized tissue Severity: Fat Layer Exposed Amount of bleeding with debridement: Mild Bleeding Controlled with: Compression and gauze Patient tolerated procedure well - Additional Wound Wound debrided: medial LLE - superior Laterality: Left Type of Debridement: Excisional debridement Anesthesia Used: 4% Lidocaine Solution, 5% Lidocaine Gel Depth: Down to and including healthy tissue, in the subcutaneous layer Percentage of wound debrided: 100 Instrument Used: 5mm curette Tissue Removed: yellow slough, devitalized tissue Severity: Fat Layer Exposed Amount of bleeding with debridement: Mild Bleeding Controlled with: Compression and gauze Patient tolerated procedure: Patient tolerated procedure well Assessment/Plan Active Problems Venous ulcer of left lower extremity without varicose veins (Chronic) H/O skin graft (Chronic) CKD (chronic kidney disease), stage III (Chronic) HTN (hypertension) (Chronic) Assessment: medial left LE venous ulcer complicated by h/o autologous skin graft Plan: Ernesto's ulcers were evaluated and debrided today. Will have him continue to use Shani changed every other day as a dressing for moderate drainage. He would benefit from assistance with his dressings from Home Health. They have been consulted. Will continue to use double layer tubigrips for compression. Vascular testing showed incompetence of veins in his lower extremities bilaterally. A vascular referral has been placed for Dr. Mae for evaluation for EVLA. His A1C was 7.3% 12/23/18. Other labs are unremarkable. Encouraged better glycemic control, increased protein intake, elevation of his legs and avoiding idle standing to assist in healing his ulcer. F/U in 1 week.
--- NOTE | 2019-01-21 17:24 | PN.PCM_ITS ---
(1) Venous ulcer of left lower extremity without varicose veins Status: Chronic Current Visit: Yes Code(s): I87.2 - Venous insufficiency (chronic) (peripheral); L97.929 - Non-pressure chronic ulcer of unspecified part of left lower leg with unspecified severity (2) H/O skin graft Status: Chronic Current Visit: Yes Code(s): Z94.5 - Skin transplant status (3) CKD (chronic kidney disease), stage III Status: Chronic Current Visit: Yes Code(s): N18.3 - Chronic kidney disease, stage 3 (moderate) (4) HTN (hypertension) Status: Chronic Current Visit: Yes Qualifiers: Hypertension type: essential hypertension Code(s): I10 - Essential (primary) hypertension Type of Wound Date of Service: 01/21/19 Chief Complaint: nonhealing lesion of left lower leg History of Wound: Ernesto is a 58 yo male with PMH of DM type 2, gout, cardiomyopathy with AICD, mitral valve disease and recent h/o possible TIAs and right foot drop that is on disability and lives alone and does not drive who presents to the wound center for evaluation and treatment of a left lower leg ulcer that has been present for approx. 5 years. He was referred by wound care at the hospital after recent admission. He reports having open wounds to both of his legs approx. 10 years ago and had autologous skin grafts to the areas but the left leg had never healed. He had not been using any dressings or ointments to the area and denies any drainage or erythema or swelling to the wound/ulcers in recent weeks/months. Since his hospitalization he has been using ammonium lactate and gauze but has a difficult time dressing his wounds by himself because of his chronic medical conditions and does not have anyone to help him d ress his wounds. He was recently on keflex for a UTI and has completed the prescribed course. He denies any fever, chills, erythema, drainage from the ulcer. Progress of Wound: Ernesto's ulcers is somewhat improved on evaluation today. He has not been contacted by [facility] yet. He has been doing his best to change his dressings and wear his compression. He had vascular testing done 01/15/19 which showed venous insufficiency bilaterally and normal arterial testing. He denies any increased drainage or odor or erythema to his ulcers. - Physical Exam Vital Signs Temp Pulse Resp BP 99.0 F 73 18 165/93 H 01/21/19 12:32 01/21/19 12:32 01/21/19 12:32 01/21/19 12:32 General: Alert, Oriented x3, Cooperative, No apparent distress HEENT: Atraumatic, Normocephalic Oral: Moist Mucosa Neck: Supple Lungs: Clear to auscultation Cardiovascular: Regular rate, Regular Rhythm Abdomen: Soft, Non Tender, Obese Extremities: Edema Skin: Ulcer/ Wound Wound Measurements and Assessment WC - Nurse 1 - General Ulcer Measurement Start: 01/21/19 10:54 Freq: Status: Active Protocol: Activity Type Activity Date Activity User E-Sign Co-Sign Detail Recorded Client Recorded Date Recorded By Document 01/21/19 12:32 DV [id number] 01/21/19 12:44 DV 01/21/19 12:32 Wound Center Nurse 1 [Ulcer Assessment] #2 Medial LLE -Inferior -Combined with other wound No -Current Size (cm) - Length 2.0 -Current Size (cm) - Width 1.0 -Current Size (cm) - Depth 0.1 -Total Square Cm 2.00 -Photo Taken No -Epithelialization None Present -Tunneling No -Undermining/Tunneling No -Circular Undermining No -Classification - Thickness Full Thickness without Exposed Support Structure -Exudate Amt Medium -Exudate Type Serosanguineous -Wound Margin Flat & Intact -Granulation Amt Medium (34-66%) -Granulation Quality Red -Slough/Fibrin Yes -Necrosis Amt Medium (34-66%) -Necrotic Tissue Type Adherent Slough -Structure Exposed None/Limited to Skin Breakdown -Texture (Ese-wound Skin Appearance) Assessed Localized Edema Scarring -Moisture (Ese-wound Skin Appearance Assessed ) Weeping -Color (Ese-wound Skin Appearance) Assessed Erythema -Temperature (Ese-wound Skin No Abnormality Appearance) (Pt Warm) -Tenderness on Palpation (Ese-wound No Skin Appearance) -Ulcer Cleansing soap -Anesthetic Used 4% Lidocaine Solution #1 Medial LLE- Superior -Combined with other wound No -Current Size (cm) - Length 3.2 -Current Size (cm) - Width 1.5 -Current Size (cm) - Depth 0.1 -Total Square Cm 4.80 -Photo Taken No -Epithelialization None Present -Tunneling No -Undermining/Tunneling No -Circular Undermining No -Classification - Thickness Full Thickness without Exposed Support Structure -Exudate Type Sanguineous -Wound Margin Indistinct, Non -Visible -Granulation Amt None Present (0 %) -Granulation Quality N/A -Slough/Fibrin Yes -Foul Odor after Cleansing No -Anesthetic Used 4% Lidocaine Solution [Edema Assessment] -Lower Limb Edema Present Yes -Left Calf (cm) 45.2 -Left Ankle (cm) 26.0 AR - Nurse 2 - General Ulcer CM Notes Start: 01/21/19 10:54 Freq: Status: Active Protocol: Activity Type Activity Date Activity User E-Sign Co-Sign Detail Recorded Client Recorded Date Recorded By Document 01/21/19 12:45 DV [id number] 01/21/19 12:53 DV 01/21/19 12:45 Wound Center Nurse 2 [Procedure/Treatment] #2 Medial LLE -Inferior -Time 12:46 -Correct Patient Yes -Correct Side, Site, Position Yes -Correct Procedure Yes -Procedure Performed Yes -Type of Procedure Debridement -Clinical Debridement Subcutaneous -Post Debridement Size (cm) - Length 1.6 -Post Debridement Size (cm) - Width 1.0 -Post Debridement Size (cm) - Depth 0.1 -Total Square Cm 1.60 -Wound/Ulcer Outcome Not Healed -Ulcer Cleansing Rinsed/ Irrigated with Saline -Foul Odor after Cleansing No -Bioengineered Tissue No -Bleeding Controlled with Pressure -Offloading No -Treatment Response Procedure Tolerated Well #1 Medial LLE- Superior -Time 12:50 -Correct Patient Yes -Correct Side, Site, Position Yes -Correct Procedure Yes -Procedure Performed Yes -Type of Procedure Debridement -Clinical Debridement Subcutaneous -Post Debridement Size (cm) - Length 3.0 -Post Debridement Size (cm) - Width 1.8 -Post Debridement Size (cm) - Depth 0.1 -Total Square Cm 5.40 -Wound/Ulcer Outcome Not Healed -Ulcer Cleansing Rinsed/ Irrigated with Saline -Foul Odor after Cleansing No -Bioengineered Tissue No -Bleeding Controlled with Pressure -Offloading No -Treatment Response Procedure Tolerated Well [See Physician Procedure note for Specifics] Pain Scale: 0-10 Numeric [Pain] -Is Patient Pain Free? Yes Psych/Mental Status: Normal Affect, Appropriate Debridement Note Post-Debridement Measurements/Treatment AR - Nurse 2 - General Ulcer CM Notes Start: 01/21/19 10:54 Freq: Status: Active Protocol: Activity Type Activity Date Activity User E-Sign Co-Sign Detail Recorded Client Recorded Date Recorded By Document 01/21/19 12:45 DV [id number] 01/21/19 12:53 DV 01/21/19 12:45 Wound Center Nurse 2 #2 [facility] -Inferior -Time 12:46 -Correct Patient Yes -Correct Side, Site, Position Yes -Correct Procedure Yes -Procedure Performed Yes -Type of Procedure Debridement -Clinical Debridement Subcutaneous -Post Debridement Size (cm) - Length 1.6 -Post Debridement Size (cm) - Width 1.0 -Post Debridement Size (cm) - Depth 0.1 -Total Square Cm 1.60 -Wound/Ulcer Outcome Not Healed -Ulcer Cleansing Rinsed/ Irrigated with Saline -Foul Odor after Cleansing No -Bioengineered Tissue No -Bleeding Controlled with Pressure -Offloading No -Treatment Response Procedure Tolerated Well #1 [facility]- Superior -Time 12:50 -Correct Patient Yes -Correct Side, Site, Position Yes -Correct Procedure Yes -Procedure Performed Yes -Type of Procedure Debridement -Clinical Debridement Subcutaneous -Post Debridement Size (cm) - Length 3.0 -Post Debridement Size (cm) - Width 1.8 -Post Debridement Size (cm) - Depth 0.1 -Total Square Cm 5.40 -Wound/Ulcer Outcome Not Healed -Ulcer Cleansing Rinsed/ Irrigated with Saline -Foul Odor after Cleansing No -Bioengineered Tissue No -Bleeding Controlled with Pressure -Offloading No -Treatment Response Procedure Tolerated Well Pain Scale: 0-10 Numeric Is Patient Pain Free? Yes Wound debrided: medial LLE - inferior Laterality: Left Type of Debridement: Excisional debridement Anesthesia Used: 4% Lidocaine Solution, 5% Lidocaine Gel Depth: Down to and including healthy tissue, in the subcutaneous layer Percentage of wound debrided: 100 Instrument Used: 5mm curette Tissue Removed: yellow slough, devitalized tissue Severity: Fat Layer Exposed Amount of bleeding with debridement: Mild Bleeding Controlled with: Compression and gauze Patient tolerated procedure well - Additional Wound Wound debrided: medial LLE - superior Laterality: Left Type of Debridement: Excisional debridement Anesthesia Used: 4% Lidocaine Solution, 5% Lidocaine Gel Depth: Down to and including healthy tissue, in the subcutaneous layer Percentage of wound debrided: 100 Instrument Used: 5mm curette Tissue Removed: yellow slough, devitalized tissue Severity: Fat Layer Exposed Amount of bleeding with debridement: Mild Bleeding Controlled with: Compression and gauze Patient tolerated procedure: Patient tolerated procedure well Assessment/Plan Active Problems Venous ulcer of left lower extremity without varicose veins (Chronic) H/O skin graft (Chronic) CKD (chronic kidney disease), stage III (Chronic) HTN (hypertension) (Chronic) Assessment: medial left LE venous ulcer complicated by h/o autologous skin graft Plan: Ernesto's ulcers were evaluated and debrided today. Will have him continue to use Shani changed every other day as a dressing for moderate drainage. He would benefit from assistance with his dressings from Home Health. They have be en consulted. Will continue to use double layer tubigrips for compression. Vascular testing showed incompetence of veins in his lower extremities bilaterally. A vascular referral has been placed for Dr. Mae for evaluation for EVLA. His A1C was 7.3% 12/23/18. Other labs are unremarkable. Encouraged better glycemic control, increased protein intake, elevation of his legs and avoiding idle standing to assist in healing his ulcer. F/U in 1 week.
[2019-01-28 09:17] VITALS: BP 164/97; PULSE 77; TEMP 37; BMI 46.0
--- NOTE | 2019-01-28 17:36 | PN.PCM_ITS ---
(1) Venous ulcer of left lower extremity without varicose veins Status: Chronic Current Visit: Yes Code(s): I87.2 - Venous insufficiency (chronic) (peripheral); L97.929 - Non-pressure chronic ulcer of unspecified part of left lower leg with unspecified severity (2) H/O skin graft Status: Chronic Current Visit: Yes Code(s): Z94.5 - Skin transplant status (3) CKD (chronic kidney disease), stage III Status: Chronic Current Visit: Yes Code(s): N18.3 - Chronic kidney disease, stage 3 (moderate) (4) HTN (hypertension) Status: Chronic Current Visit: Yes Qualifiers: Hypertension type: essential hypertension Code(s): I10 - Essential (primary) hypertension Type of Wound Date of Service: 01/28/19 Chief Complaint: nonhealing lesion of left lower leg History of Wound: Ernesto is a 58 yo male with PMH of DM type 2, gout, cardiomyopathy with AICD, mitral valve disease and recent h/o possible TIAs and right foot drop that is on disability and lives alone and does not drive who presents to the wound center for evaluation and treatment of a left lower leg ulcer that has been present for approx. 5 years. He was referred by wound care at the hospital after recent admission. He reports having open wounds to both of his legs approx. 10 years ago and had autologous skin grafts to the areas but the left leg had never healed. He had not been using any dressings or ointments to the area and denies any drainage or erythema or swelling to the wound/ulcers in recent weeks/months. Since his hospitalization he has been using ammonium lactate and gauze but has a difficult time dressing his wounds by himself because of his chronic medical conditions and does not have anyone to help him d ress his wounds. He was recently on keflex for a UTI and has completed the prescribed course. He denies any fever, chills, erythema, drainage from the ulcer. Progress of Wound: Ernesto's ulcers are somewhat improved on evaluation today. He has not been contacted by [facility] yet. He has been doing his best to change his dressings and wear his compression. He had vascular testing done 01/15/19 which showed venous insufficiency bilaterally and normal arterial testing. He denies any increased drainage or odor but there has been increased erythema to his ulcers. - Physical Exam Vital Signs Temp Pulse Resp BP 98.6 F 77 18 164/97 H 01/28/19 09:17 01/28/19 09:17 01/21/19 12:32 01/28/19 09:17 General: Alert, Oriented x3, Cooperative, No apparent distress HEENT: Atraumatic, Normocephalic Oral: Moist Mucosa Abdomen: Obese Extremities: Edema Skin: Ulcer/ Wound Wound Measurements and Assessment WC - Nurse 1 - General Ulcer Measurement Start: 01/21/19 10:54 Freq: Status: Active Protocol: Activity Type Activity Date Activity User E-Sign Co-Sign Detail Recorded Client Recorded Date Recorded By Document 01/28/19 09:17 [id number] 01/28/19 09:26 01/28/19 09:17 Wound Center Nurse 1 [Ulcer Assessment] #2 Medial LLE -Inferior -Combined with other wound No -Current Size (cm) - Length 0.7 -Current Size (cm) - Width 0.4 -Current Size (cm) - Depth 0.1 -Total Square Cm 0.28 -Photo Taken No -Epithelialization None Present -Tunneling No -Undermining/Tunneling No -Circular Undermining No -Exudate Amt Small -Exudate Type Serosanguineous -Wound Margin Flat & Intact -Granulation Amt Small (1-33%) -Granulation Quality Red -Slough/Fibrin No -Necrosis Amt None Present (0 %) -Structure Exposed None/Limited to Skin Breakdown -Texture (Ese-wound Skin Appearance) No Abnormality -Moisture (Ese-wound Skin Appearance Dry/Scaly ) -Color (Ese-wound Skin Appearance) Erythema -Temperature (Ese-wound Skin No Abnormality Appearance) (Pt Warm) -Tenderness on Palpation (Ese-wound No Skin Appearance) -Foul Odor after Cleansing No -Anesthetic Used 5% Lidocaine Gel #1 Medial LLE- Superior -Combined with other wound No -Current Size (cm) - Length 3.2 -Current Size (cm) - Width 2.3 -Current Size (cm) - Depth 0.1 -Total Square Cm 7.36 -Photo Taken No -Epithelialization None Present -Tunneling No -Undermining/Tunneling No -Circular Undermining No -Exudate Amt Small -Exudate Type Serosanguineous -Wound Margin Flat & Intact -Granulation Amt Small (1-33%) -Granulation Quality Red -Slough/Fibrin No -Necrosis Amt None Present (0 %) -Structure Exposed None/Limited to Skin Breakdown -Texture (Ese-wound Skin Appearance) Rash -Moisture (Ese-wound Skin Appearance Dry/Scaly ) -Color (Ese-wound Skin Appearance) No Abnormality -Temperature (Ese-wound Skin No Abnormality Appearance) (Pt Warm) -Tenderness on Palpation (Ese-wound No Skin Appearance) -Foul Odor after Cleansing No -Anesthetic Used 5% Lidocaine Gel [Edema Assessment] -Left Calf (cm) 45.3 -Left Ankle (cm) 26.5 WC - Nurse 2 - General Ulcer CM Notes Start: 01/21/19 10:54 Freq: Status: Active Protocol: Activity Type Activity Date Activity User E-Sign Co-Sign Detail Recorded Client Recorded Date Recorded By Document 01/28/19 10:04 DV [id number] 01/28/19 10:06 DV 01/28/19 10:04 Wound Center Nurse 2 [Procedure/Treatment] #2 Medial LLE -Inferior -Time 10:05 -Correct Patient Yes -Correct Side, Site, Position Yes -Correct Procedure Yes -Procedure Performed Yes -Type of Procedure Debridement -Clinical Debridement Subcutaneous -Post Debridement Size (cm) - Length 1.0 -Post Debridement Size (cm) - Width 0.5 -Post Debridement Size (cm) - Depth 0.1 -Total Square Cm 0.50 -Wound/Ulcer Outcome Not Healed -Ulcer Cleansing Rinsed/ Irrigated with Saline -Foul Odor after Cleansing No -Bioengineered Tissue No -Bleeding Controlled with Pressure -Offloading No -Treatment Response Procedure Tolerated Well #1 Medial LLE- Superior -Time 10:05 -Correct Patient Yes -Correct Side, Site, Position Yes -Correct Procedure Yes -Procedure Performed Yes -Type of Procedure Debridement -Clinical Debridement Subcutaneous -Post Debridement Size (cm) - Length 2.9 -Post Debridement Size (cm) - Width 2.4 -Post Debridement Size (cm) - Depth 0.1 -Total Square Cm 6.96 -Wound/Ulcer Outcome Not Healed -Ulcer Cleansing Rinsed/ Irrigated with Saline -Foul Odor after Cleansing No -Bioengineered Tissue No -Bleeding Controlled with Pressure -Offloading No -Treatment Response Procedure Tolerated Well [See Physician Procedure note for Specifics] Pain Scale: 0-10 Numeric [Pain] -Is Patient Pain Free? Yes Psych/Mental Status: Normal Affect, Appropriate Debridement Note Post-Debridement Measurements/Treatment WC - Nurse 2 - General Ulcer CM Notes Start: 01/21/19 10:54 Freq: Status: Active Protocol: Activity Type Activity Date Activity User E-Sign Co-Sign Detail Recorded Client Recorded Date Recorded By Document 01/21/19 12:45 DV [id number] 01/21/19 12:53 DV Document 01/28/19 10:04 DV [id number] 01/28/19 10:06 DV 01/21/19 01/28/19 12:45 10:04 Wound Center Nurse 2 #2 Medial LLE -Inferior -Time 12:46 10:05 -Correct Patient Yes Yes -Correct Side, Site, Position Yes Yes -Correct Procedure Yes Yes -Procedure Performed Yes Yes -Type of Procedure Debridement Debridement -Clinical Debridement Subcutaneous Subcutaneous -Post Debridement Size (cm) - Length 1.6 1.0 -Post Debridement Size (cm) - Width 1.0 0.5 -Post Debridement Size (cm) - Depth 0.1 0.1 -Total Square Cm 1.60 0.50 -Wound/Ulcer Outcome Not Healed Not Healed -Ulcer Cleansing Rinsed/ Rinsed/ Irrigated with Irrigated with Saline Saline -Foul Odor after Cleansing No No -Bioengineered Tissue No No -Bleeding Controlled with Pressure Pressure -Offloading No No -Treatment Response Procedure Procedure Tolerated Well Tolerated Well #1 Medial LLE- Superior -Time 12:50 10:05 -Correct Patient Yes Yes -Correct Side, Site, Position Yes Yes -Correct Procedure Yes Yes -Procedure Performed Yes Yes -Type of Procedure Debridement Debridement -Clinical Debridement Subcutaneous Subcutaneous -Post Debridement Size (cm) - Length 3.0 2.9 -Post Debridement Size (cm) - Width 1.8 2.4 -Post Debridement Size (cm) - Depth 0.1 0.1 -Total Square Cm 5.40 6.96 -Wound/Ulcer Outcome Not Healed Not Healed -Ulcer Cleansing Rinsed/ Rinsed/ Irrigated with Irrigated with Saline Saline -Foul Odor after Cleansing No No -Bioengineered Tissue No No -Bleeding Controlled with Pressure Pressure -Offloading No No -Treatment Response Procedure Procedure Tolerated Well Tolerated Well Pain Scale: 0-10 Numeric Is Patient Pain Free? Yes Yes Wound debrided: medial left LLE inferior Laterality: Left Type of Debridement: Excisional debridement Anesthesia Used: 4% Lidocaine Solution, 5% Lidocaine Gel Depth: Down to and including healthy tissue, in the subcutaneous layer Percentage of wound debrided: 100 Instrument Used: 5mm curette Tissue Removed: yellow slough, devitalized tissue Severity: Fat Layer Exposed Amount of bleeding with debridement: Mild Bleeding Controlled with: Compression and gauze Patient tolerated procedure well - Additional Wound Wound debrided: left medial LE superior Laterality: Left Type of Debridement: Excisional debridement Anesthesia Used: 4% Lidocaine Solution, 5% Lidocaine Gel Depth: Down to and including healthy tissue, in the subcutaneous layer Percentage of wound debrided: 100 Instrument Used: 5mm curette Tissue Removed: yellow slough, devitalized tissue Severity: Fat Layer Exposed Amount of bleeding with debridement: Mild Bleeding Controlled with: Compression and gauze Patient tolerated procedure: Patient tolerated procedure well Assessment/Plan Active Problems Venous ulcer of left lower extremity without varicose veins (Chronic) H/O skin graft (Chronic) CKD (chronic kidney disease), stage III (Chronic) HTN (hypertension) (Chronic) Assessment: medial left LE venous ulcer complicated by h/o autologous skin graft Plan: Ernesto's ulcers were evaluated and debrided today. Will have him continue to use Shani changed every other day as a dressing for moderate drainage. Wound culture done today due to increase in erythema surrounding his ulcers. He would benefit from assistance with his dressings from Home Health. They have been consulted but no one has been able to staff him or accept his insurance this far. Will continue to use double layer tubigrips for compression. Vascular testing showed incompetence of veins in his lower extremities bilaterally. A vascular referral has been placed for Dr. Mae for evaluation for EVLA. His A1C was 7.3% 12/23/18. Other labs are unremarkable. Encouraged better glycemic control, increased protein intake, elevation of his legs and avoiding idle standing to assist in healing his ulcer. F/U in 1 week.
[2019-02-04 09:53] VITALS: BP 150/62; PULSE 81; RESP 18; TEMP 37.2; BMI 46.0
--- NOTE | 2019-02-04 12:51 | PN.PCM_ITS ---
(1) Venous ulcer of left lower extremity without varicose veins Status: Chronic Current Visit: Yes Code(s): I87.2 - Venous insufficiency (chronic) (peripheral); L97.929 - Non-pressure chronic ulcer of unspecified part of left lower leg with unspecified severity (2) H/O skin graft Status: Chronic Current Visit: Yes Code(s): Z94.5 - Skin transplant status (3) CKD (chronic kidney disease), stage III Status: Chronic Current Visit: Yes Code(s): N18.3 - Chronic kidney disease, stage 3 (moderate) (4) HTN (hypertension) Status: Chronic Current Visit: Yes Qualifiers: Hypertension type: essential hypertension Qualified Code(s): I10 - Essential (primary) hypertension Code(s): I10 - Essential (primary) hypertension Type of Wound Date of Service: 02/04/19 Chief Complaint: nonhealing lesion of left lower leg History of Wound: Ernesto is a 58 yo male with PMH of DM type 2, gout, cardiomyopathy with AICD, mitral valve disease and recent h/o possible TIAs and right foot drop that is on disability and lives alone and does not drive who presents to the wound center for evaluation and treatment of a left lower leg ulcer that has been present for approx. 5 years. He was referred by wound care at the hospital after recent admission. He reports having open wounds to both of his legs approx. 10 years ago and had autologous skin grafts to the areas but the left leg had never healed. He had not been using any dressings or ointments to the area and denies any drainage or erythema or swelling to the wound/ulcers in recent weeks/months. Since his hospitalization he has been using ammonium lactate and gauze but has a difficult time dressing his wounds by himself because of his chronic medical conditions and does not have anyone to help him dress his wounds. He was recently on keflex for a UTI and has completed the prescribed course. He denies any fever, chills, erythema, drainage from the ulcer. Progress of Wound: Ernesto's ulcers are somewhat improved on evaluation today. He has not been contacted by [facility] yet. He has been doing his best to change his dressings and wear his compression. He had vascular testing done 01/15/19 which showed venous insufficiency bilaterally and normal arterial testing. He denies any increased drainage or odor but there has been increased erythema to his ulcers. - Physical Exam Vital Signs Temp Pulse Resp BP 98.9 F 81 18 150/62 H 02/04/19 09:53 02/04/19 09:53 02/04/19 09:53 02/04/19 09:53 General: Alert, Oriented x3, Cooperative, No apparent distress HEENT: Atraumatic, Normocephalic Oral: Moist Mucosa Lungs: Clear to auscultation Cardiovascular: Regular rate, Regular Rhythm Abdomen: Obese Extremities: Edema Skin: Ulcer/ Wound Wound Measurements and Assessment WC - Nurse 1 - General Ulcer Measurement Start: 01/21/19 10:54 Freq: Status: Active Protocol: Activity Type Activity Date Activity User E-Sign Co-Sign Detail Recorded Client Recorded Date Recorded By Document 02/04/19 09:53 RB [id number] 02/04/19 10:02 RB 02/04/19 09:53 Wound Center Nurse 1 [Ulcer Assessment] #2 Medial LLE -Inferior -Combined with other wound No -Current Size (cm) - Length 0.1 -Current Size (cm) - Width 0.1 -Current Size (cm) - Depth 0.1 -Total Square Cm 0.01 -Epithelialization Large 67-100% -Tunneling No -Undermining/Tunneling No -Circular Undermining No -Exudate Amt None Present -Granulation Amt Large (67-100%) -Granulation Quality [place] -Slough/Fibrin No -Necrosis Amt None Present (0 %) -Structure Exposed N/A -Texture (Ese-wound Skin Appearance) Assessed -Moisture (Ese-wound Skin Appearance Assessed ) -Color (Ese-wound Skin Appearance) Assessed -Temperature (Ese-wound Skin No Abnormality Appearance) (Pt Warm) -Tenderness on Palpation (Ese-wound No Skin Appearance) -Ulcer Cleansing Wound Cleanser -Foul Odor after Cleansing No -Anesthetic Used 5% Lidocaine Gel #1 Medial LLE- Superior -Combined with other wound No -Current Size (cm) - Length 1.3 -Current Size (cm) - Width 0.8 -Current Size (cm) - Depth 0.1 -Total Square Cm 1.04 -Tunneling No -Undermining/Tunneling No -Circular Undermining No -Exudate Amt Small -Exudate Type Serosanguineous -Wound Margin Distinct, Outline Attached -Granulation Amt Large (67-100%) -Granulation Quality [place],Red -Slough/Fibrin Yes -Necrosis Amt Small (1-33%) -Necrotic Tissue Type Adherent Slough -Structure Exposed N/A -Texture (Ese-wound Skin Appearance) Assessed, Scarring -Moisture (Ese-wound Skin Appearance Assessed ) -Color (Ese-wound Skin Appearance) Assessed -Temperature (Ese-wound Skin No Abnormality Appearance) (Pt Warm) -Tenderness on Palpation (Ese-wound No Skin Appearance) -Ulcer Cleansing Wound Cleanser -Foul Odor after Cleansing No -Anesthetic Used 5% Lidocaine Gel [Edema Assessment] -Lower Limb Edema Present Yes -Left Calf (cm) 45 -Left Ankle (cm) 26.5 - Nurse 2 - General Ulcer CM Notes Start: 01/21/19 10:54 Freq: Status: Active Protocol: Activity Type Activity Date Activity User E-Sign Co-Sign Detail Recorded Client Recorded Date Recorded By Document 02/04/19 10:29 AN [id number] 02/04/19 10:35 AN 02/04/19 10:29 Wound Center Nurse 2 [Procedure/Treatment] #1 [facility] LLE- Superior -Time 10:34 -Correct Patient Yes -Correct Side, Site, Position Yes -Correct Procedure Yes -Procedure Performed Yes -Type of Procedure Debridement -Clinical Debridement Subcutaneous -Post Debridement Size (cm) - Length 1.6 -Post Debridement Size (cm) - Width 1.8 -Post Debridement Size (cm) - Depth 0.1 -Total Square Cm 2.88 [See Physician Procedure note for Specifics] Pain Scale: 0-10 Numeric [Pain] -Is Patient Pain Free? Yes Psych/Mental Status: Normal Affect, Appropriate Debridement Note Post-Debridement Measurements/Treatment - Nurse 2 - General Ulcer CM Notes Start: 01/21/19 10:54 Freq: Status: Active Protocol: Activity Type Activity Date Activity User E-Sign Co-Sign Detail Recorded Client Recorded Date Recorded By Document 01/21/19 12:45 DV [id number] 01/21/19 12:53 DV Document 01/28/19 10:04 DV [id number] 01/28/19 10:06 DV Document 02/04/19 10:29 AN [id number] 02/04/19 10:35 AN 01/21/19 01/28/19 02/04/19 12:45 10:04 10:29 Wound Center Nurse 2 #2 [facility] -Inferior -Time 12:46 10:05 -Correct Patient Yes Yes -Correct Side, Site, Position Yes Yes -Correct Procedure Yes Yes -Procedure Performed Yes Yes -Type of Procedure Debridement Debridement -Clinical Debridement Subcutaneous Subcutaneous -Post Debridement Size (cm) - Length 1.6 1.0 -Post Debridement Size (cm) - Width 1.0 0.5 -Post Debridement Size (cm) - Depth 0.1 0.1 -Total Square Cm 1.60 0.50 -Wound/Ulcer Outcome Not Healed Not Healed -Ulcer Cleansing Rinsed/ Rinsed/ Irrigated with Irrigated with Saline Saline -Foul Odor after Cleansing No No -Bioengineered Tissue No No -Bleeding Controlled with Pressure Pressure -Offloading No No -Treatment Response Procedure Procedure Tolerated Well Tolerated Well #1 [facility]- Superior -Time 12:50 10:05 10:34 -Correct Patient Yes Yes Yes -Correct Side, Site, Position Yes Yes Yes -Correct Procedure Yes Yes Yes -Procedure Performed Yes Yes Yes -Type of Procedure Debridement Debridement Debridement -Clinical Debridement Subcutaneous Subcutaneous Subcutaneous -Post Debridement Size (cm) - Length 3.0 2.9 1.6 -Post Debridement Size (cm) - Width 1.8 2.4 1.8 -Post Debridement Size (cm) - Depth 0.1 0.1 0.1 -Total Square Cm 5.40 6.96 2.88 -Wound/Ulcer Outcome Not Healed Not Healed -Ulcer Cleansing Rinsed/ Rinsed/ Irrigated with Irrigated with Saline Saline -Foul Odor after Cleansing No No -Bioengineered Tissue No No -Bleeding Controlled with Pressure Pressure -Offloading No No -Treatment Response Procedure Procedure Tolerated Well Tolerated Well Pain Scale: 0-10 Numeric Is Patient Pain Free? Yes Yes Yes Wound debrided: left medial LE Laterality: Left Type of Debridement: Excisional debridement Anesthesia Used: 4% Lidocaine Solution Depth: Down to and including healthy tissue, in the subcutaneous layer Percentage of wound debrided: 100 Instrument Used: 5mm curette Tissue Removed: yellow slough, devitalized tissue Severity: Fat Layer Exposed Amount of bleeding with debridement: Mild Bleeding Controlled with: Compression and gauze Patient tolerated procedure well Assessment/Plan Active Problems Venous ulcer of left lower extremity without varicose veins (Chronic) H/O skin graft (Chronic) CKD (chronic kidney disease), stage III (Chronic) HTN (hypertension) (Chronic) Assessment: medial left LE venous ulcer complicated by h/o autologous skin graft Plan: Ernesto's ulcers were evaluated and debrided today. Will have him continue to use Shani changed every other day as a dressing for moderate drainage. His inferior ulcer is healed. He started antibiotics for positive wound culture and is tolerating. He would benefit from assistance with his dressings from Home Health. They have been consulted but no one has been able to staff him or accept his insurance this far. Will continue to use double layer tubigrips for compression. Vascular testing showed incompetence of veins in his lower extremities bilaterally. A vascular referral has been placed for Dr. Mae for evaluation for EVLA. His A1C was 7.3% 12/23/18. Other labs are unremarkable. Encouraged better glycemic control, increased protein intake, elevation of his legs and avoiding idle standing to assist in healing his ulcer. F/U in 1 week.
== END 2019-02-13 23:59 ==
LOC: WC 14:00
PROVIDERS: Family Provider Internal Medicine; PCP Internal Medicine; Referring Provider Family Medicine; Visit Provider Family Medicine
DX: E11.622 Type 2 diabetes mellitus with other skin ulcer (principal); I87.2 Venous insufficiency (chronic) (peripheral); L97.822 Non-pressure chronic ulcer of other part of left lower leg with fat layer exposed; Z94.5 Skin transplant status; E11.22 Type 2 diabetes mellitus with diabetic chronic kidney disease; N18.3 Chronic kidney disease, stage 3 (moderate); I12.9 Hypertensive chronic kidney disease with stage 1 through stage 4 chronic kidney disease, or unspecified chronic kidney disease; Z95.810 Presence of automatic (implantable) cardiac defibrillator; M10.9 Gout, unspecified
CPT/HCPCS: 11042; 87070; 87075; 87077; 87186; 87205

== ENCOUNTER 2019-02-25 14:30 | Outpatient (RCR) | payer MEDICAID, SELFPAY ==
[2019-02-04 09:53] VITALS: BMI 46.0
[2019-02-14 00:55] VITALS: BP 150/62; PULSE 81; RESP 18; TEMP 37.2
[2019-02-25 14:53] VITALS: BP 158/81; PULSE 83; RESP 18; TEMP 37.4; BMI 46.0
--- NOTE | 2019-02-25 18:29 | PN.PCM_ITS ---
(1) Venous ulcer of left lower extremity without varicose veins Status: Chronic Current Visit: Yes Code(s): I87.2 - Venous insufficiency (chronic) (peripheral); L97.929 - Non-pressure chronic ulcer of unspecified part of left lower leg with unspecified severity (2) Diabetes mellitus, type II Status: Chronic Current Visit: Yes Qualifiers: Diabetes mellitus halfway insulin use: unspecified halfway insulin use status Diabetes mellitus complication status: with skin complications Diabetes mellitus complication detail: with other skin ulcer Qualified Code(s): E11.622 - Type 2 diabetes mellitus with other skin ulcer; L98.499 - Non-pressure chronic ulcer of skin of other sites with unspecified severity Code(s): E11.9 - Type 2 diabetes mellitus without complications Type of Wound Date of Service: 02/25/19 Chief Complaint: nonhealing lesion of left lower leg History of Wound: Ernesto is a 58 yo male with PMH of DM type 2, gout, cardiomyopathy with AICD, mitral valve disease and recent h/o possible TIAs and right foot drop that is on disability and lives alone and does not drive who presents to the wound center for evaluation and treatment of a left lower leg ulcer that has been present for approx. 5 years. He was referred by wound care at the hospital after recent admission. He reports having open wounds to both of his legs approx. 10 years ago and had autologous skin grafts to the areas but the left leg had never healed. He had not been using any dressings or ointments to the area and denies any drainage or erythema or swelling to the wound/ulcers in recent weeks/months. Since his hospitalization he has been using ammonium lactate and gauze but has a difficult time dressing his wounds by himself because of his chronic medical conditions and does not have anyone to help him dress his wounds. He was recently on keflex for a UTI and has completed the prescribed course. He denies any fever, chills, erythema, drainage from the ulcer. Progress of Wound: Enresto's ulcers are healed today. He had vascular testing done 01/15/19 which showed venous insufficiency bilaterally and normal arterial testing. He denies any increased drainage or odor but there has been increased erythema to his ulcers. - Physical Exam Vital Signs Temp Pulse Resp BP 99.3 F H 83 18 158/81 H 02/25/19 14:53 02/25/19 14:53 02/25/19 14:53 02/25/19 14:53 General: Alert, Oriented x3, Cooperative, No apparent distress HEENT: Atraumatic, Normocephalic Oral: Moist Mucosa Abdomen: Obese Extremities: Edema Skin: Ulcer/ Wound Wound Measurements and Assessment WC - Nurse 1 - General Ulcer Measurement Start: 02/21/19 08:54 Freq: Status: Active Protocol: Activity Type Activity Date Activity User E-Sign Co-Sign Detail Recorded Client Recorded Date Recorded By Document 02/25/19 14:53 [facility] [id number] 02/25/19 14:56 [facility] 02/25/19 14:53 Wound Center Nurse 1 [Ulcer Assessment] #1 Medial LLE- Superior -Combined with other wound No -Current Size (cm) - Length 0 -Current Size (cm) - Width 0 -Current Size (cm) - Depth 0 -Total Square Cm 0 -Date of Last Picture (Recall this 02/25/19 field) -Epithelialization Large 67-100% [Edema Assessment] -Lower Limb Edema Present Yes -Left Calf (cm) 47.5 -Left Ankle (cm) 26.6 WC - Nurse 2 - General Ulcer CM Notes Start: 02/21/19 08:54 Freq: Status: Active Protocol: Activity Type Activity Date Activity User E-Sign Co-Sign Detail Recorded Client Recorded Date Recorded By Document 02/25/19 15:30 DV [id number] 02/25/19 15:32 DV 02/25/19 15:30 Wound Center Nurse 2 [Procedure/Treatment] #1 Medial LLE- Superior -Time 15:31 -Correct Patient Yes -Correct Side, Site, Position Yes -Correct Procedure No -Procedure Performed No -Post Debridement Size (cm) - Length 0 -Post Debridement Size (cm) - Width 0 -Post Debridement Size (cm) - Depth 0 -Total Square Cm 0 -Wound/Ulcer Outcome Healed- Epithelialized [See Physician Procedure note for Specifics] Pain Scale: 0-10 Numeric [Pain] -Is Patient Pain Free? Yes Psych/Mental Status: Normal Affect, Appropriate Debridement Note Post-Debridement Measurements/Treatment WC - Nurse 2 - General Ulcer CM Notes Start: 02/21/19 08:54 Freq: Status: Active Protocol: Activity Type Activity Date Activity User E-Sign Co-Sign Detail Recorded Client Recorded Date Recorded By Document 02/25/19 15:30 DV [id number] 02/25/19 15:32 DV 02/25/19 15:30 Wound Center Nurse 2 #1 Medial LLE- Superior -Time 15:31 -Correct Patient Yes -Correct Side, Site, Position Yes -Correct Procedure No -Procedure Performed No -Post Debridement Size (cm) - Length 0 -Post Debridement Size (cm) - Width 0 -Post Debridement Size (cm) - Depth 0 -Total Square Cm 0 -Wound/Ulcer Outcome Healed- Epithelialized Pain Scale: 0-10 Numeric Is Patient Pain Free? Yes Wound debrided: medial LLE No debridement was completed today - as it is healed Assessment/Plan Active Problems Venous ulcer of left lower extremity without varicose veins (Chronic) Diabetes mellitus, type II (Chronic) Assessment: medial left LE venous ulcer complicated by h/o autologous skin graft Plan: Ernesto's ulcers are healed today. A vascular referral has been placed for Dr. Mae for evaluation for EVLA. His A1C was 7.3% 12/23/18. Other labs are unremarkable. Encouraged better glycemic control, increased protein intake, elevation of his legs and avoiding idle standing to assist in healing his ulcer. F/U as needed. He will be discharged at this time.
== END 2019-03-16 23:59 ==
LOC: WC 14:30
PROVIDERS: Family Provider Internal Medicine; PCP Internal Medicine; Referring Provider Family Medicine; Visit Provider Family Medicine
DX: Z09 Encounter for follow-up examination after completed treatment for conditions other than malignant neoplasm (principal); E11.9 Type 2 diabetes mellitus without complications; I87.2 Venous insufficiency (chronic) (peripheral)
CPT/HCPCS: 99213; G0463

== ENCOUNTER 2019-03-16 09:30 | Outpatient (RCR) | payer MEDICAID, SELFPAY ==
[2018-12-24 17:02] VITALS: BMI 47.1
[2018-12-31 13:51] VITALS: BMI 46.0
--- NOTE | 2019-01-05 14:55 | HP.PTEVAL_ITS ---
Patient's Visit Information JUVENCIO QUINTERO is a 58 year old M referred to Physical Therapy by Juany Wylie with a diagnosis of R foot drop and falls. Date of Evaluation: 01/05/19 Physical Therapist: Chevy Perez DPT, OCS, CSCS - Visit Plan Frequency: 2x /Week Duration: 4-6 Weeks Plan: 2x/week for 4-6 weeks for ... 1. R ankle strength and ROM/stretching gastroc. 2. B LE strength and circulation exercises. 3. General ex. 4. Gait training without AD for confidence, pt to get AFO for R foot. - Subjective Findings: Went to the hospital for drop foot R. Not sure how it happened. Fell on the 8th going to get mail and fella gain the next day and had to call 911 and they took him to the hospital. Saw neuro in hospital and couldn't move toes on right foot. Has DM and does nto know about neuroapthy. will see outpatient neurologist in February. Had catscan and back scan and neck and had a disc problem in the low back but neck and head was OK. Might have had ministrokes. Prior to these incidence walked fine adn needed no aD. Using wh walker now due to falls. Uses [facility] transit to get around and used to walk to it fine. No pain. Sleeping well. Was put on antibiotic for kidney function as he was going to bathroom an awful lot. Not employed disabled from heart problems as he has a defibrillator adn DM. Been disable 8 years. 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 Spends day walking around apartment. More TV lately. Keeps leg elevated and no other regular exercises. Has an appointment for AFO with [facility]. Ordered a shower chair as he has a big step into tub. Live alone and dresses adn meal Ok. Uses whw alker now all the time. No steps except curb to get in. - Objective Has defibrillator /pacemaker. R foot drop present in gait with R steppage with wh walker. Catches toe a few times but slow and safe with the walker. Trasnfer I with UE, steps require UE and hesitant but can step up with either. Poor confidence without walker adn catches R toe but can ambulate 5-8 feet with SBA. Neither ankle moves real well, both legs are swollen and L is wrapped for wounds whcih he sees the wound clinic on Fridays. AROM R ankle -15 DF and 20 PF, PROM is to 0 degrees DF and 55 PF. L ankle AROM 0 DF to 25 PF. B inv/ev at 20 inv adn 8 eversion. Strength is R ankle 2/5 PF/DF and 3 inv/ev. L is 4- throughout ankle. Knee strength 4+ B, and hips 4 B. reflexes 2/3 patella and achilles B. Sensation seems WNL to gross light touch in LE B. SLS unable on R and 2-3 seconds L. stands without AD I but por confidence. Unable to walk without AD to take FGA today, scared without walker. Romberg eo adn ec 30 seconds. - Goals Goal 1:: Walk without AD with AFO 400 feet confidently without LOB Goal Time Frame: 4-6 Weeks Goal 2:: up and down steps I with one rail with confidence to get into friends house. Goal Time Frame: 4-6 Weeks Goal 3:: FGA to diminish fall risk Goal Time Frame: 4-6 Weeks Goal 4:: Pt feel 50% improved activity level. - Rehabilitation Potential Physical Therapy Diagnosis: falls and R foot drop, poor gait confidence. Rehabilitation Potential: Fair - Anticipated Interventions Patient/Client Instruction: Educate patient on: Condition, Plan of Care For the Purpose of:: To increase ROM, To improve muscle performance and motor function, To improve gait and locomotor functions Therapeutic Exercise to Include: Strength training, Balance training, Postural training, Flexibilty training, Gait and locomotor training, Passive ROM, Active ROM For the Purpose of:: To increase ROM, To improve nutrient delivery to tissue, To increase oxygenation perfusion, To improve muscle performance and motor function, To increase tolerance to activity/condition/position, To improve ability of physical actions for home/community/work/leisure, To improve gait and locomotor functions, To improve safety Thank you for the opportunity to evaluate your patient. For Medicare and Medicare HMO plans, please review the plan of care and approve it. It will need to be FAXED BACK to us at [phone] for Medicare purposes. For Medicare only, by signing this I certify the plan of care. Please let me know if there are questions or concerns regarding this plan of care. Physician Signature: Date:
--- NOTE | 2019-02-09 11:26 | HP.PTREVAL ---
Juany Wylie, It has been my pleasure to treat JUVENCIO QUINTERO over the last 9 visits for R foot drop and falls. Please see the progress note below for an update on the physical therapy plan of care! Subjective: Up steps getting easier, going down still leary when looking down. No pain. Getting stronger as exercises. Walks around the apartment without walker now. Uses it out and about to get mail. Walking regularly to get the mail. Will get AFO next month. HEP at [facility] heel toe raises and other sink exercises daily. 3x10. Wants more therapy in clinic to get stronger adn improve confidence. Get rid of walker.(has used it ) Objective/Function: FGA tolerated well today. steps require rail to descend but went up without rail. Out of chair without UE today but poor confidence. MUCH BETTER OVERALL , PROGRESSING WELL AND APPROPRIATE TO COTNINUE WITH FAIR PROGNOSIS. Plan Plan: 2X/WEEK FOR 4 WEEKS FOR: 1. Teach progression of strength ex pt can continue at home(squats, lifts, more aggressive to tolerance). 2. Gait confidence with descending steps, foam balance and functional balance/VOR. Goals Goal 1:: Walk without AD with AFO 400 feet confidently without LOB Goal Time Frame: 4-6 Weeks Goal Progress: AFO next month. Goal 2:: up and down steps I with one rail with confidence to get into friends house. Goal Time Frame: 4-6 Weeks Goal Progress: Goal Met Goal 3:: 24/30 FGA to diminish fall risk Goal Time Frame: 4-6 Weeks Goal Progress: Progressing Goal 4:: Pt feel 50% improved activity level. Goal Time Frame: 4-6 Weeks Goal Progress: Goal Met Goal 5:: Descend steps withput rail safe adn I. Goal Time Frame: 4-6 Weeks Goal Progress: NEW GOAL Anticipated Interventions Patient/Client Instruction: Educate patient on: Condition, Plan of Care For the Purpose of:: To increase ROM, To improve muscle performance and motor function, To improve gait and locomotor functions Therapeutic Exercise to Include: Strength training, Balance training, Postural training, Flexibilty training, Gait and locomotor training, Passive ROM, Active ROM For the Purpose of:: To increase ROM, To improve nutrient delivery to tissue, To increase oxygenation perfusion, To improve muscle performance and motor function, To increase tolerance to activity/condition/position, To improve ability of physical actions for home/community/work/leisure, To improve gait and locomotor functions, To improve safety Please do not hesitate to contact me at [phone] by phone or if you have questions or concerns regarding this new plan of care! Sincerely, Chevy Perez, DPT, OCS, CSCS
--- NOTE | 2019-03-16 10:24 | HP.PTREVAL ---
Juany Wylie MD, It has been my pleasure to treat JUVENCIO QUINTERO over the last 17 visits for R foot drop and falls. Please see the progress note below for an update on the physical therapy plan of care! Subjective: Lastvisit but I have an issue. Will have procedure on veins in leg. HEP doing balance and leg exercises. Balance feels like it is not as good since leg swelling. No falls lately. using walker to get mail but not in the house. Will get AFO next Thursday possibly. Objective/Function: Walking one lap without LOB with mid SOB gone with resting. Much improved FGA. No weakness noted today in DF either side. Steps reciprocal without rail and descends reciprocal with one rail. Plan Plan: f/u one time for balance check and ensure gait with aFO is good in 3 weeks. Fair prognosis Goals Goal 1:: Walk without AD with AFO 400 feet confidently without LOB Goal Time Frame: 4-6 Weeks Goal Progress: Goal Met,no AFO. Goal 2:: up and down steps I with one rail with confidence to get into friends house. Goal Time Frame: 4-6 Weeks Goal Progress: Goal Met Goal 3:: FGA to diminish fall risk Goal Time Frame: 4-6 Weeks Goal Progress: Goal Met Goal 4:: Pt feel 50% improved activity level. Goal Time Frame: 4-6 Weeks Goal Progress: Goal Met Goal 5:: Descend steps withput rail safe adn I. Goal Time Frame: 4-6 Weeks Goal Progress: met , one rail Goal 6:: maintain balance at current level adn walk safely with aFO Goal Time Frame: 2-4 Weeks Goal Progress: NEW GOAL Anticipated Interventions Patient/Client Instruction: Educate patient on: Condition, Plan of Care For the Purpose of:: To increase ROM, To improve muscle performance and motor function, To improve gait and locomotor functions Therapeutic Exercise to Include: Strength training, Balance training, Postural training, Flexibilty training, Gait and locomotor training, Passive ROM, Active ROM For the Purpose of:: To increase ROM, To improve nutrient delivery to tissue, To increase oxygenation perfusion, To improve muscle performance and motor function, To increase tolerance to activity/condition/position, To improve ability of physical actions for home/community/work/leisure, To improve gait and locomotor functions, To improve safety Please do not hesitate to contact me at [phone] by phone or if you have questions or concerns regarding this new plan of care! Sincerely, Chevy Perez, DPT, OCS, CSCS
--- NOTE | 2019-05-26 15:28 | HP.PT.NRP ---
HP - Discharge Summary (1) - Patient Information JUVENCIO QUINTERO was seen in my office for initial evaluation on 01/05/19. The following Plan of Care was established for this patient: Initial Frequency: 2x /Week Initial Duration: 4-6 Weeks - Anticipated Interventions Patient/Client Instruction: Educate patient on: Condition, Plan of Care For the Purpose of:: To increase ROM, To improve muscle performance and motor function, To improve gait and locomotor functions Therapeutic Exercise to Include: Strength training, Balance training, Postural training, Flexibilty training, Gait and locomotor training, Passive ROM, Active ROM For the Purpose of:: To increase ROM, To improve nutrient delivery to tissue, To increase oxygenation perfusion, To improve muscle performance and motor function, To increase tolerance to activity/condition/position, To improve ability of physical actions for home/community/work/leisure, To improve gait and locomotor functions, To improve safety This patient was last seen in our office 03/16/19. Pertinent comments regarding their Physical therapy will appear below: Pt seen 17 visits of POC. Was 75% improved. Was to f/u 2 weeks later but did not attend that visit. At this point, it has been over two months and I will discontinue due to nonattendance. At this point I will be discontinuing this patient from physical therapy. I would be happy to see this patient again in the future if found appropriate by the physician. Thank you! Chevy Perez, DPT, OCS, CSCS
== END 2019-03-16 19:00 | disposition home or self-care (01) ==
LOC: PT 09:30
PROVIDERS: Family Provider Internal Medicine; PCP Internal Medicine; Referring Provider Internal Medicine; Visit Provider Internal Medicine
DX: R29.6 Repeated falls (principal); M21.371 Foot drop, right foot; E11.622 Type 2 diabetes mellitus with other skin ulcer; I87.2 Venous insufficiency (chronic) (peripheral); L97.822 Non-pressure chronic ulcer of other part of left lower leg with fat layer exposed; Z94.5 Skin transplant status; E11.22 Type 2 diabetes mellitus with diabetic chronic kidney disease; N18.3 Chronic kidney disease, stage 3 (moderate); I12.9 Hypertensive chronic kidney disease with stage 1 through stage 4 chronic kidney disease, or unspecified chronic kidney disease; Z95.810 Presence of automatic (implantable) cardiac defibrillator; M10.9 Gout, unspecified
CPT/HCPCS: 11042; 87070; 87075; 87077; 87186; 87205; 97110; 97116; 97162; 97530; 99213; G0463

== ENCOUNTER → 2019-05-04 09:31 | Outpatient (CLI) | payer MEDICAID, SELFPAY ==
[2019-05-04 10:42] LABS: Hematocrit 42.8 % (40-54); Mean Corp Hgb Conc 30.4 g/dL (32-36); Mean Corpuscular Hgb 24.7 pg (27.0-32.0); Mean Corpuscular Volume 81.2 fL (80-94); Mean Platelet Vol. 10.1 fl (6.2-12.0); Platelet Count 226 K/mm3 (150-450); RBC Distribution Width CV 15.5 % (11.6-14.6); Red Blood Count 5.27 M/mm3 (4.6-6.2); White Blood Count 9.7 K/mm3 (4.4-11.0)
[2019-05-04 11:01] LABS: BUN 55 mg/dL (7-18); Creatinine, Serum 2.39 mg/dL (0.70-1.30); Glucose 119 mg/dL (74-106)
[2019-05-04 11:02] LABS: Calcium,Total 8.7 mg/dL (8.5-10.1); Chloride 111 mmol/L (98-107); EST Glomerular Filtration Rate 30 mL/min (>60); Est Glom Filt Rate - Afr Amer 36 mL/min (>60); Phosphorus 3.3 mg/dL (2.5-4.9); Potassium 4.2 mmol/L (3.5-5.1); Sodium Level 143 mmol/L (136-145)
== END ==
PROVIDERS: Family Provider Internal Medicine; PCP Internal Medicine; Referring Provider Internal Medicine Nephrology; Visit Provider Internal Medicine Nephrology
DX: N18.3 Chronic kidney disease, stage 3 (moderate) (principal)
CPT/HCPCS: 36415; 80069; 85027

== ENCOUNTER → 2019-06-02 09:56 | Outpatient (CLI) | payer MEDICAID, SELFPAY ==
[2019-06-02 11:54] LABS: Albumin, Serum 3.6 g/dL (3.2-5.0); BUN 59 mg/dL (7-18); BUN/Creat Ratio 21.2 RATIO (10-20); Calcium,Total 8.9 mg/dL (8.5-10.1); Chloride 110 mmol/L (98-107); Creatinine, Serum 2.78 mg/dL (0.70-1.30); EST Glomerular Filtration Rate 25 mL/min (>60); Est Glom Filt Rate - Afr Amer 30 mL/min (>60); Glucose 100 mg/dL (74-106); Potassium 4.4 mmol/L (3.5-5.1); Sodium Level 141 mmol/L (136-145)
== END ==
PROVIDERS: Family Provider Internal Medicine; PCP Internal Medicine; Referring Provider Internal Medicine Nephrology; Visit Provider Internal Medicine Nephrology
DX: N18.3 Chronic kidney disease, stage 3 (moderate) (principal)
CPT/HCPCS: 36415; 80069

== ENCOUNTER → 2019-08-18 10:39 | Outpatient (CLI) | payer MEDICAID, SELFPAY ==
[2019-06-22 12:14] VITALS: BMI 48.2
[2019-08-18 11:18] LABS: Hematocrit 42.8 % (40-54); Hemoglobin 13.2 g/dL (13.0-16.5); Mean Corp Hgb Conc 30.8 g/dL (32-36); Mean Corpuscular Hgb 25.2 pg (27.0-32.0); Mean Corpuscular Volume 81.8 fL (80-94); Mean Platelet Vol. 9.9 fl (6.2-12.0); Platelet Count 252 K/mm3 (150-450); RBC Distribution Width SD 47.6 fl (35.1-43.9); Red Blood Count 5.23 M/mm3 (4.6-6.2); White Blood Count 11.7 K/mm3 (4.4-11.0)
[2019-08-18 11:49] LABS: Albumin, Serum 3.3 g/dL (3.2-5.0); BUN 48 mg/dL (7-18); BUN/Creat Ratio 16.7 RATIO (10-20); Calcium,Total 8.6 mg/dL (8.5-10.1); Chloride 110 mmol/L (98-107); Creatinine, Serum 2.87 mg/dL (0.70-1.30); EST Glomerular Filtration Rate 24 mL/min (>60); Est Glom Filt Rate - Afr Amer 29 mL/min (>60); Glucose 106 mg/dL (74-106); Phosphorus 3.5 mg/dL (2.5-4.9); Potassium 4.1 mmol/L (3.5-5.1); Sodium Level 143 mmol/L (136-145)
[2019-08-18 11:55] LABS: PTHIN 278.1 pg/mL (18.4-80.1)
== END ==
PROVIDERS: Family Provider Internal Medicine; PCP Internal Medicine; Referring Provider Internal Medicine Nephrology; Visit Provider Internal Medicine Nephrology
DX: E11.22 Type 2 diabetes mellitus with diabetic chronic kidney disease (principal); N18.3 Chronic kidney disease, stage 3 (moderate)
CPT/HCPCS: 36415; 80069; 83970; 85027

== ENCOUNTER → 2019-09-20 09:33 | Outpatient (CLI) | payer MEDICAID, SELFPAY ==
[2019-06-22 12:14] VITALS: BMI 48.2
[2019-09-20 11:20] LABS: PTHIN 211.7 pg/mL (18.4-80.1)
[2019-09-20 11:22] LABS: Albumin, Serum 3.3 g/dL (3.2-5.0); BUN 57 mg/dL (7-18); BUN/Creat Ratio 17.9 RATIO (10-20); Calcium,Total 9.3 mg/dL (8.5-10.1); Chloride 111 mmol/L (98-107); Creatinine, Serum 3.18 mg/dL (0.70-1.30); EST Glomerular Filtration Rate 21 mL/min (>60); Est Glom Filt Rate - Afr Amer 26 mL/min (>60); Glucose 67 mg/dL (74-106); Phosphorus 3.4 mg/dL (2.5-4.9); Potassium 4.4 mmol/L (3.5-5.1); Sodium Level 145 mmol/L (136-145)
== END ==
PROVIDERS: PCP Internal Medicine; Referring Provider Internal Medicine Nephrology; Visit Provider Internal Medicine Nephrology
DX: N17.9 Acute kidney failure, unspecified (principal)
CPT/HCPCS: 36415; 80069; 83970

== ENCOUNTER → 2019-12-14 11:17 | Outpatient (CLI) | payer MEDICAID, SELFPAY ==
[2019-06-22 12:14] VITALS: BMI 48.2
[2019-12-14 12:30] LABS: Albumin, Serum 3.3 g/dL (3.2-5.0); BUN 63 mg/dL (7-18); BUN/Creat Ratio 20.5 RATIO (10-20); Calcium,Total 9.1 mg/dL (8.5-10.1); Chloride 113 mmol/L (98-107); Creatinine, Serum 3.08 mg/dL (0.70-1.30); EST Glomerular Filtration Rate 22 mL/min (>60); Est Glom Filt Rate - Afr Amer 27 mL/min (>60); Glucose 140 mg/dL (74-106); Phosphorus 3.2 mg/dL (2.5-4.9); Potassium 4.2 mmol/L (3.5-5.1); Sodium Level 142 mmol/L (136-145)
[2019-12-14 12:33] LABS: Protein, Urine (Random) 60.2 mg/dL (<11.9); Protein:Creat Ratio 962 mg/g CRE (0-200)
[2019-12-14 13:42] LABS: PTHIN 118.2 pg/mL (18.4-80.1)
== END ==
PROVIDERS: Family Provider Internal Medicine; PCP Internal Medicine; Referring Provider Internal Medicine Nephrology; Visit Provider Internal Medicine Nephrology
DX: E11.22 Type 2 diabetes mellitus with diabetic chronic kidney disease (principal); N18.3 Chronic kidney disease, stage 3 (moderate); N17.9 Acute kidney failure, unspecified; N25.81 Secondary hyperparathyroidism of renal origin
CPT/HCPCS: 36415; 80069; 82570; 83970; 84156

== ENCOUNTER → 2020-01-20 08:43 | Outpatient (CLI) | payer MEDICAID, SELFPAY ==
[2019-12-21 11:50] VITALS: BMI 48.2
[2020-01-20 09:37] LABS: Albumin, Serum 3.2 g/dL (3.2-5.0); BUN 50 mg/dL (7-18); BUN/Creat Ratio 16.9 RATIO (10-20); Calcium,Total 8.6 mg/dL (8.5-10.1); Chloride 109 mmol/L (98-107); Creatinine, Serum 2.96 mg/dL (0.70-1.30); EST Glomerular Filtration Rate 23 mL/min (>60); Est Glom Filt Rate - Afr Amer 28 mL/min (>60); Glucose 116 mg/dL (74-106); Phosphorus 3.5 mg/dL (2.5-4.9); Potassium 3.4 mmol/L (3.5-5.1); Sodium Level 143 mmol/L (136-145)
== END ==
PROVIDERS: PCP Internal Medicine; Referring Provider Internal Medicine Nephrology; Visit Provider Internal Medicine Nephrology
DX: N17.9 Acute kidney failure, unspecified (principal)
CPT/HCPCS: 36415; 80069

== ENCOUNTER → 2020-03-20 15:29 | Outpatient (CLI) | payer MEDICAID, SELFPAY ==
[2019-12-21 11:50] VITALS: BMI 48.2
[2020-03-20 16:34] LABS: Albumin, Serum 3.4 g/dL (3.2-5.0); BUN 60 mg/dL (7-18); Calcium,Total 8.8 mg/dL (8.5-10.1); Chloride 111 mmol/L (98-107); Creatinine, Serum 3.33 mg/dL (0.70-1.30); EST Glomerular Filtration Rate 20 mL/min (>60); Est Glom Filt Rate - Afr Amer 24 mL/min (>60); Glucose 107 mg/dL (74-106); Phosphorus 3.6 mg/dL (2.5-4.9); Potassium 4.3 mmol/L (3.5-5.1); Sodium Level 141 mmol/L (136-145)
[2020-03-21 08:16] LABS: PTHIN 97.7 pg/mL (18.4-80.1)
== END ==
PROVIDERS: PCP Internal Medicine; Referring Provider Internal Medicine Nephrology; Visit Provider Internal Medicine Nephrology
DX: E11.22 Type 2 diabetes mellitus with diabetic chronic kidney disease (principal); I12.9 Hypertensive chronic kidney disease with stage 1 through stage 4 chronic kidney disease, or unspecified chronic kidney disease; N18.3 Chronic kidney disease, stage 3 (moderate); N25.81 Secondary hyperparathyroidism of renal origin
CPT/HCPCS: 36415; 80069; 82570; 83970; 84156

== ENCOUNTER → 2020-05-24 11:50 | Outpatient (CLI) | payer MEDICAID, SELFPAY ==
[2019-12-21 11:50] VITALS: BMI 48.2
[2020-05-24 12:35] LABS: Hematocrit 41.1 % (40-54); Hemoglobin 12.4 g/dL (13.0-16.5); Mean Corp Hgb Conc 30.2 g/dL (32-36); Mean Corpuscular Hgb 24.8 pg (27.0-32.0); Mean Platelet Vol. 9.9 fl (6.2-12.0); Platelet Count 270 K/mm3 (150-450); RBC Distribution Width CV 16.5 % (11.6-14.6); RBC Distribution Width SD 49.1 fl (35.1-43.9); Red Blood Count 5.01 M/mm3 (4.6-6.2); White Blood Count 10.8 K/mm3 (4.4-11.0)
[2020-05-24 12:40] LABS: Albumin, Serum 3.5 g/dL (3.2-5.0); BUN 60 mg/dL (7-18); BUN/Creat Ratio 18.1 RATIO (10-20); Calcium,Total 8.9 mg/dL (8.5-10.1); Chloride 112 mmol/L (98-107); Creatinine, Serum 3.32 mg/dL (0.70-1.30); EST Glomerular Filtration Rate 20 mL/min (>60); Est Glom Filt Rate - Afr Amer 24 mL/min (>60); Glucose 99 mg/dL (74-106); Phosphorus 3.6 mg/dL (2.5-4.9); Potassium 4.3 mmol/L (3.5-5.1); Sodium Level 144 mmol/L (136-145)
== END ==
PROVIDERS: PCP Internal Medicine; Visit Provider Internal Medicine Nephrology
DX: N18.30 Chronic kidney disease, stage 3 unspecified (principal); N25.81 Secondary hyperparathyroidism of renal origin
CPT/HCPCS: 36415; 80069; 83970; 85027

== ENCOUNTER → 2021-01-24 10:22 | Outpatient (CLI) | payer MEDICAID, SELFPAY ==
[2019-12-21 11:50] VITALS: BMI 48.2
[2020-08-28 08:29] VITALS: BMI 48.8
[2021-01-24 12:30] LABS: Hematocrit 31.9 % (40-54); Hemoglobin 9.4 g/dL (13.0-16.5); Mean Corp Hgb Conc 29.5 g/dL (32-36); Mean Corpuscular Hgb 23.3 pg (27.0-32.0); Platelet Count 262 K/mm3 (150-450); RBC Distribution Width SD 51.7 fl (35.1-43.9); Red Blood Count 4.04 M/mm3 (4.6-6.2); White Blood Count 9.1 K/mm3 (4.4-11.0)
[2021-01-24 12:51] LABS: PTHIN 253.4 pg/mL (18.4-80.1)
[2021-01-24 13:38] LABS: BUN 164 mg/dL (7-18); BUN/Creat Ratio 19.4 RATIO (10-20); Calcium,Total 9.1 mg/dL (8.5-10.1); Chloride 118 mmol/L (98-107); Creatinine, Serum 8.45 mg/dL (0.70-1.30); EST Glomerular Filtration Rate 7 mL/min (>60); Est Glom Filt Rate - Afr Amer 8 mL/min (>60); Glucose 142 mg/dL (74-106); Phosphorus 6.1 mg/dL (2.5-4.9); Potassium 6.4 mmol/L (3.5-5.1); Sodium Level 139 mmol/L (136-145)
== END ==
PROVIDERS: PCP Internal Medicine; Visit Provider Internal Medicine Nephrology
DX: N18.4 Chronic kidney disease, stage 4 (severe) (principal); N25.81 Secondary hyperparathyroidism of renal origin
CPT/HCPCS: 36415; 80069; 83970; 85027

== ENCOUNTER 2021-01-24 14:21 | Inpatient (IN) | payer MEDICAID, SELFPAY ==
[2020-08-28 08:29] VITALS: BMI 48.8
[2021-01-24] VITALS (10 sets, daily range): BP systolic 99–135; BP diastolic 53–82; PULSE 81–88; RESP 18–20; TEMP 36.2–36.6; O2SAT 97–99; BMI 46.2; BMI 44.2
--- NOTE | 2021-01-24 14:38 | RAD_ITS ---
STUDY: X-RAY CHEST REASON FOR EXAM: Male, 60 years old. Hypotension TECHNIQUE: Single AP portable view of the chest. COMPARISON: Comparison is made with prior study dated 01/27/2016. FINDINGS: EKG electrodes are seen. The lungs are clear and expanded. There is no demonstrated pleural abnormality. There is mild cardiac enlargement. A left-sided dual-chamber pacemaker is seen. Normal mediastinum and andi. Normal visualized pulmonary arteries. There is atherosclerotic tortuosity of the aortic arch and descending thoracic aorta. Normal visualized thoracic spine. Normal visualized ribs, clavicles, and shoulders. There is no demonstrated abnormality of the visualized soft tissue structures of the upper abdomen. RAD/Chest 1 View (Portable) IMPRESSION: Mild cardiomegaly. Electronically Signed: Leonard Nunez MD at 15:34 EDT , Service support ,
--- NOTE | 2021-01-24 14:40 | EKG12_ITS ---
Test Reason : ABNORMAL LABS Blood Pressure : / mmHG Vent. Rate : 081 BPM Atrial Rate : 081 BPM P-R Int : 100 ms QRS Dur : 162 ms QT Int : 442 ms P-R-T Axes : 049 264 051 degrees QTc Int : 513 ms Atrial-sensed ventricular-paced rhythm Abnormal ECG Confirmed by TRE ARCHER, KARL ([id number]), deputy editor in chief VALENTINA DONOVAN ([id number]) on 01/28/2021 1:53:10 PM Referred By: Confirmed By:KARL TOLEDO MD
--- NOTE | 2021-01-24 15:14 | NURSING ---
DR NATALIIA JORDAN
[2021-01-24] MEDS: 0.9% Normal Saline 1,000 ML 999 ML IV (15:36)
[2021-01-24 15:43] LABS: Bacteria 0 SEEN /hpf (None Seen); Mucous, Urine 0 SEEN /hpf (<or=2+); Red Blood Cells-Urine 0 SEEN /hpf (0-5); Squamous Epithelial Cells - UA 0 SEEN /hpf (0-5)
[2021-01-24 15:46] LABS: Color, Urine Yellow (Yellow); Glucose, Dipstick Normal (Normal); Ketone-Dipstick Negative (Negative); Leukocyte Esterase-Dipstick 500 /ul (Negative); Nitrite-Dipstick Negative (Negative); Occult Blood-Urine 150 /ul (Negative); Protein-Dipstick 100 mg/dl (Negative); Urine Bilirubin Dipstick Negative (Negative); Urine Clarity Turbid (Clear); Urine Urobilinogen Normal (Normal); Urine pH 6.5 (5.0 - 8.0)
[2021-01-24 15:52] LABS: White Blood Cells >100 SEEN /hpf (0-5)
[2021-01-24] MEDS: Sodium Polystyrene Sulfonate 15 GM/60 ML UDC 30 GM PO (15:52)
[2021-01-24] MEDS: 0.9% Normal Saline 1,000 ML 150 ML IV ×2 (16:03→18:19)
--- NOTE | 2021-01-24 16:14 | EDS_ITS ---
HPI History of Present Illness Chief Complaint: Abn Labs Informant: patient Narrative Narrative: 60-year-old male with history of chronic kidney disease saw his tiler's assistant today. They piotr labs and he states that he went home. He states he is not feeling any different than normal so he was surprised when they called and said he needed to come to the emergency room. Reportedly his creatinine is up to about 8.5 with a potassium of 6.4. Patient has a nonischemic cardiomyopathy and has a ICD in place. He states he still making urine like he has been. [facility] Medical History Chronic diastolic (congestive) heart failure CKD (chronic kidney disease), stage III Diabetes mellitus, type II Essential (primary) hypertension Falls frequently HLD (hyperlipidemia) Hyperosmolar non-ketotic state in patient with type 2 diabetes mellitus Implantable cardioverter-defibrillator (ICD) in situ Left bundle branch block (LBBB) Morbid obesity Non-ischemic cardiomyopathy Nonsustained ventricular tachycardia RAQUEL (obstructive sleep apnea) Right foot drop Venous ulcer of left lower extremity without varicose veins Home Medications allopurinol 150 mg PO DAILY 01/27/16 [History Last Taken 01/24/21] carvedilol 37.5 tab PO BID 01/27/16 [History Last Taken 01/24/21] linagliptin 5 mg PO DAILY 08/05/17 [History Last Taken 01/24/21] ammonium lactate 1 applicatio TP DAILY PRN PRN 12/23/18 [History Last Taken 01/24/21] latanoprost 1 drp EACH EYE DAILY 12/23/18 [History Last Taken 01/23/21] tamsulosin 0.4 mg capsule 0.4 mg PO DAILY 06/21/19 [History Last Taken 01/24/21] amlodipine 10 mg PO DAILY 01/24/21 [History Last Taken 01/24/21] lisinopril 5 mg PO DAILY 01/24/21 [History Last Taken 01/24/21] Allergy/AdvReac Type Severity Reaction Status Date / Time No Known Allergies Allergy Verified 08/28/20 08:29 Family History Father Hypertension Heart disease Diabetes Mother Diabetes Surgical History H/O skin graft Social History (Updated 01/24/21 @ 16:[address] Jeramie Vallecillo DO) Smoking Status: Never smoker substance use type: does not use ROS ROS ED Constitutional Constitutional ED: Denies chills or weight loss Eyes Eyes: Denies change in vision or diplopia ENT ENT ED: Denies ear pain, rhinorrhea or sore throat Cardiovascular Cardiovascular: Denies chest pain, orthopnea, palpitations or racing heartbeat Respiratory/Chest Respiratory/Chest: Denies cough, dyspnea or orthopnea Gastrointestinal Gastrointestinal: Denies abdominal pain, diarrhea, nausea or vomiting Genitourinary Genitourinary ED: Denies dysuria, hematuria or urinary frequency Musculoskeletal Musculoskeletal: Denies arthralgias or myalgias Integumentary Denies abscess or rash Neurologic Neurologic: Denies headache(s) or weakness Psychiatric Psychiatric: Denies anxiety, depression, suicidal ideation or suicidal thoughts Endocrine Endocrinology: Denies polydipsia, polyphagia or polyuria Allergic/Immunologic Allergic/Immunologic ED: Denies mouth swelling, tongue swelling or urticaria EXAM Physical Exam Const Vital Signs: 01/24/21 14:22 01/24/21 14:28 01/24/21 14:30 Temperature 97.7 F L 97.7 F L Temperature Source Oral Oral Pulse Rate 82 82 81 Respiratory Rate 20 H 20 H 20 H Respiratory Pattern Normal Blood Pressure 99/63 99/63 103/53 L Blood Pressure Mean 75 75 69 Pulse Ox 99 99 98 Oxygen Delivery Method Room Air Room Air Room Air 01/24/21 15:50 01/24/21 16:00 Temperature 97.7 F L 98 F Temperature Source Oral Oral Pulse Rate 83 85 Respiratory Rate 18 20 H Respiratory Pattern Blood Pressure 117/71 121/73 H Blood Pressure Mean 86 89 Pulse Ox 99 98 Oxygen Delivery Method Room Air Room Air Positive well nourished, well developed and obese General Appearance ED: well developed Nutritional Appearance: obese HEENT Reports normocephalic, head/scalp atraumatic and moist mucous membranes Eyes PERRL and EOMs intact bilaterally Neck no lymphadenopathy, supple and no JVD Resp normal respiratory effort and clear to auscultation bilaterally Cardio regular rate, regular rhythm and no murmurs GI normal to inspection, nondistended, normoactive bowel sounds and non-tender Palpation: soft Back/Spine no CVA tenderness and normal ROM Extremity normal to inspection General Extremety ED: Negative for edema General Extremity: Negative for edema Neuro oriented x3 and CN's II-XII intact bilaterally Sensorium / Orientation: alert Motor Exam: strength 5/5 throughout Psych mental status grossly normal Mood & Affect: Negative for depressed or tearful Skin no rashes or lesions noted and no wounds MDM MDM MDM Narrative Medical decision making narrative: I called the patient's tiler's assistant who would like him admitted for IV hydration. We gave him Kayexalate. His EKG is paced I do not see any significant change in the T waves compared to prior. I will speak with her hospitalist for admission Lab Data Attestation: I reviewed the patient's lab results. Labs: Laboratory Results - last 24 hr 01/24/21 15:36 Urine Color Yellow Urine Clarity Turbid Urine pH 6.5 Ur Specific [place] 1.010 Urine Protein 100 H Urine Glucose (UA) Normal Urine Ketones Negative Urine Occult Blood 150 H Urine Nitrite Negative Urine Bilirubin Negative Urine Urobilinogen Normal Ur Leukocyte Esterase 500 H Urine RBC 0 SEEN Urine WBC >100 SEEN Ur Squamous Epith Cells 0 SEEN Urine Bacteria 0 SEEN Urine Mucus 0 SEEN Radiography Diagnostic Testing: Radiology Impression Chest X-Ray 01/24/21 14:38 IMPRESSION: Mild cardiomegaly. Electronically Signed: Leonard Nunez MD at 15:34 EDT , Service support , Discharge Plan Triage Chief Complaint: Abn Labs ED Provider: Jeramie Vallecillo Dx/Rx/DC Orders Clinical Impression: Acute renal failure, Acute hyperkalemia Prescriptions: No Action tamsulosin 0.4 mg capsule 0.4 mg PO DAILY RF: 0 carvedilol 25 MG tablet 37.5 tab PO BID RF: 0 allopurinol 300 MG tablet 150 mg PO DAILY RF: 0 linagliptin 5 MG tablet 5 mg PO DAILY RF: 0 latanoprost 1 DROP bottle 1 drp EACH EYE DAILY RF: 0 ammonium lactate 226 GM lotion 1 applicatio TP DAILY PRN PRN (Reason: IRRITATION) RF: 0 lisinopril 5 mg tablet 5 mg PO DAILY RF: 0 amlodipine 10 mg tablet 10 mg PO DAILY RF: 0 Primary Care Provider: Juany Wylie Referrals: Juany Wylie MD [Primary Care Provider] - Disposition Disposition: Acute Care Hospital [facility]
--- NOTE | 2021-01-24 16:19 | NURSING ---
PCU KAREN ACUTE RENAL FAILURE, HYPERKALEMIA
--- NOTE | 2021-01-24 17:34 | HP.PCM.HOS_ITS ---
[facility] - General General Date of Admission: 01/24/21 Date of Service: 01/24/21 Chief Complaint: Abnormal labs HPI Narrative JUVENCIO QUINTERO, is a 60 M who presents presents after being sent in for abnormal blood work. Patient had routine blood work performed and had a potassium 6.4 and a creatinine of 8.45. She last available labs were from May worse potassium was 4.3 and his creatinine was 3.32 at that time. No repeat blood work was performed in the emergency room patient did receive Kayexalate and IV fluids. [facility] Medical History Chronic diastolic (congestive) heart failure CKD (chronic kidney disease), stage III Diabetes mellitus, type II Essential (primary) hypertension Falls frequently HLD (hyperlipidemia) Hyperosmolar non-ketotic state in patient with type 2 diabetes mellitus Implantable cardioverter-defibrillator (ICD) in situ Left bundle branch block (LBBB) Morbid obesity Non-ischemic cardiomyopathy Nonsustained ventricular tachycardia RAQUEL (obstructive sleep apnea) Right foot drop Venous ulcer of left lower extremity without varicose veins Home Medications allopurinol 150 mg PO DAILY 01/27/16 [History Last Taken 01/24/21] carvedilol 37.5 tab PO BID 01/27/16 [History Last Taken 01/24/21] linagliptin 5 mg PO DAILY 08/05/17 [History Last Taken 01/24/21] ammonium lactate 1 applicatio TP DAILY PRN PRN 12/23/18 [History Last Taken 01/24/21] latanoprost 1 drp EACH EYE DAILY 12/23/18 [History Last Taken 01/23/21] tamsulosin 0.4 mg capsule 0.4 mg PO DAILY 06/21/19 [History Last Taken 01/24/21] amlodipine 10 mg PO DAILY 01/24/21 [History Last Taken 01/24/21] lisinopril 5 mg PO DAILY 01/24/21 [History Last Taken 01/24/21] Allergy/AdvReac Type Severity Reaction Status Date / Time No Known Allergies Allergy Verified 08/28/20 08:29 Family History Father Hypertension Heart disease Diabetes Mother Diabetes Surgical History H/O skin graft Social History Smoking Status: Never smoker substance use type: does not use ROS ROS Narrative All review of systems were negative except as mentioned above in the history of present illness and the other review of systems. Patient does have a chronic left lower extremity wound that is been unchanged. Patient did have a skin graft in the past. Vital Signs Vital Signs Vital Signs: 01/24/21 14:22 01/24/21 14:28 01/24/21 14:30 Temperature 36.5 C L 36.5 C L Temperature Source Oral Oral Pulse Rate 82 82 81 Respiratory Rate 20 H 20 H 20 H Respiratory Pattern Normal Blood Pressure 99/63 99/63 103/53 L Blood Pressure Mean 75 75 69 Blood Pressure Source Pulse Ox 99 99 98 Oxygen Delivery Method Room Air Room Air Room Air 01/24/21 15:50 01/24/21 16:00 01/24/21 16:23 Temperature 36.5 C L 36.6 C 36.6 C Temperature Source Oral Oral Oral Pulse Rate 83 85 84 Respiratory Rate 18 20 H 20 H Respiratory Pattern Blood Pressure 117/71 121/73 H 121/73 H Blood Pressure Mean 86 89 89 Blood Pressure Source Pulse Ox 99 98 97 Oxygen Delivery Method Room Air Room Air Room Air 01/24/21 16:47 Temperature 36.2 C L Temperature Source Temporal Pulse Rate 85 Respiratory Rate 18 Respiratory Pattern Blood Pressure 116/64 Blood Pressure Mean 81 Blood Pressure Source Monitor Pulse Ox 97 Oxygen Delivery Method Room Air Weight Weight: 143.925 kg Body Mass Index (BMI) 44.2 Physical Exam Const alert and oriented x3 HEENT HEENT Narrative: Patient does have a cluster of vesicles on top of his head w hich he states is chronic. Resp normal respiratory effort and clear to auscultation bilaterally Cardio regular rate, regular rhythm, S1 normal heart sound and S2 normal heart sound GI normal to inspection, nondistended, normoactive bowel sounds, non-tender and non-distended Extremity normal to inspection Neuro Sensorium / Orientation: awake and alert Results Lab / Micro Data Labs: Laboratory Results - last 24 hr 01/24/21 15:36 Urine Color Yellow Urine Clarity Turbid Urine pH 6.5 Ur Specific [place] 1.010 Urine Protein 100 H Urine Glucose (UA) Normal Urine Ketones Negative Urine Occult Blood 150 H Urine Nitrite Negative Urine Bilirubin Negative Urine Urobilinogen Normal Ur Leukocyte Esterase 500 H Urine RBC 0 SEEN Urine WBC >100 SEEN Ur Squamous Epith Cells 0 SEEN Urine Bacteria 0 SEEN Urine Mucus 0 SEEN Radiology Impression Chest X-Ray 01/24/21 14:38 IMPRESSION: Mild cardiomegaly. Electronically Signed: Lenoard Nunez MD at 15:34 EDT , Service support , Assessment & Plan Assessment/Plan (1) Acute renal failure: QUALIFIERS: Acute renal failure type: unspecified Qualified Code(s): N17.9 - Acute kidney failure, unspecified (2) Acute hyperkalemia: PLAN: 1. Acute kidney injury * Creatinine is 8.45 * Will give patient additional IV fluids, hold lisinopril * Consults nephrology * Repeat BMP * Discussed with patient the possibility of him requiring hemodialysis 2. Hyperkalemia * Recheck BMP * Hold lisinopril 3. Diabetes mellitus type 2 * Hold home medications * Sliding scale insulin 4. Nonischemic cardiomyopathy * Currently stable * Lisinopril on hold given above * Continue with carvedilol 5. Gout * No active flare at this time * Hold allopurinol given the CHANTALE 6. VTE prophylaxis: Moderate risk. Subcu heparin 7. Advanced directives: Discussed with patient. Patient wishes to be full CODE STATUS at this time. Charges/Coding Visit Charges Inpatient E&M: 13182 Init Hosp L2
[2021-01-24 18:25] LABS: Bedside Glucose 114 mg/dL (70-110)
[2021-01-24 18:47] LABS: Anion Gap 10 (5-15); BUN 156 mg/dL (7-18); BUN/Creat Ratio 18.6 RATIO (10-20); Calcium,Total 8.9 mg/dL (8.5-10.1); Chloride 117 mmol/L (98-107); EST Glomerular Filtration Rate 7 mL/min (>60); Est Glom Filt Rate - Afr Amer 8 mL/min (>60); Estimated Creatinine Clearance 9.71 ml/min; Glucose 113 mg/dL (74-106); Potassium 5.9 mmol/L (3.5-5.1); Sodium Level 142 mmol/L (136-145)
[2021-01-24] MEDS: Carvedilol 25 MG Tablet 37.5 MG PO (21:49)
[2021-01-24] MEDS: Heparin Injection (Vial) 5,000 UNIT/ML VIAL 5000 UNIT SC (21:51)
[2021-01-24 22:00] LABS: Bedside Glucose 130 mg/dL (70-110)
[2021-01-25] VITALS (10 sets, daily range): BP systolic 108–146; BP diastolic 69–82; PULSE 70–125; RESP 15–18; TEMP 36.3–36.5; O2SAT 95–100
[2021-01-25] MEDS: 0.9% Normal Saline 1,000 ML 150 ML IV ×2 (00:37→06:49)
--- NOTE | 2021-01-25 04:56 | EKG12_ITS ---
Test Reason : RHYTHM CHANGE Blood Pressure : / mmHG Vent. Rate : 087 BPM Atrial Rate : 087 BPM P-R Int : 156 ms QRS Dur : 154 ms QT Int : 404 ms P-R-T Axes : 062 010 253 degrees QTc Int : 486 ms Atrial-sensed ventricular-paced rhythm Abnormal ECG When compared with ECG of 24-JAN-2021 15:07, MANUAL COMPARISON REQUIRED, DATA IS UNCONFIRMED Confirmed by TRE ARCHER, KARL ([id number]), photo editor VALENTINA DONOVAN ([id number]) on 01/29/2021 9:11:41 AM Referred By: KAREN Confirmed By:KARL TOLEDO MD
[2021-01-25] MEDS: Calcium Gluconate 1 GM/10 ML Vial 2 GM IV (06:05)
[2021-01-25 06:16] LABS: Absolute Lymphocyte Count 1.04 X10^3/uL (0.83-4.51); Basophil# 0.04 X10^3/uL; Basophil% 0.6 % (0-1); Eosinophil# 0.32 X10^3/uL; Eosinophils% 4.5 % (0-5); Hematocrit 28.2 % (40-54); Hemoglobin 8.5 g/dL (13.0-16.5); Lymphocyte # 1.04 X10^3/ul (0.83-4.51); Lymphocyte % 14.8 % (19-41); Mean Corp Hgb Conc 30.1 g/dL (32-36); Mean Corpuscular Hgb 23.7 pg (27.0-32.0); Mean Corpuscular Volume 78.6 fL (80-94); Monocyte# 0.67 X10^3/uL; Monocyte% 9.5 % (0-10); NRBC Flagged by Analyzer 0 % (0-5); Neutrophil # 4.95 X10^3/uL (2.7-7.7); Neutrophil % 70.2 % (47-70); Platelet Count 218 K/mm3 (150-450); RBC Distribution Width CV 18.2 % (11.6-14.6); Red Blood Count 3.59 M/mm3 (4.6-6.2); White Blood Count 7.1 K/mm3 (4.4-11.0)
[2021-01-25 06:50] LABS: Magnesium 1.7 mg/dL (1.6-2.6)
[2021-01-25 06:56] LABS: Anion Gap 9 (5-15); BUN 152 mg/dL (7-18); BUN/Creat Ratio 18.8 RATIO (10-20); Calcium,Total 8.5 mg/dL (8.5-10.1); Chloride 121 mmol/L (98-107); Creatinine, Serum 8.08 mg/dL (0.70-1.30); EST Glomerular Filtration Rate 7 mL/min (>60); Est Glom Filt Rate - Afr Amer 9 mL/min (>60); Glucose 98 mg/dL (74-106); Potassium 5.3 mmol/L (3.5-5.1); Sodium Level 143 mmol/L (136-145)
[2021-01-25 06:56] LABS: Bedside Glucose 92 mg/dL (70-110)
--- NOTE | 2021-01-25 06:56 | NURSING ---
Pts primary rn aware of bun of 152 and creat of 8.08 at this time.
[2021-01-25] MEDS: Carvedilol 25 MG Tablet 37.5 MG PO ×2 (09:22→21:16)
[2021-01-25] MEDS: Latanoprost 0.005% 1 Bottle 1 DRP EACH EYE (09:23)
[2021-01-25] MEDS: Heparin Injection (Vial) 5,000 UNIT/ML VIAL 5000 UNIT SC ×2 (09:28→21:16)
--- NOTE | 2021-01-25 10:10 | CASEMGMT ---
RN [employer] CM to room to meet with patient for initial transition planning/care coordination assessment. KAYLI MAYERS introduced self and role at [facility]. Pt voices understanding and consents to assessment at this time. Pt sitting up in recliner chair in room in no distress at this time. Pt is A/O at this time and answers all questions appropriately. Care providers, pharmacy, and demographics verified/updated at this time. PCP: Dr Wylie Specialists:Dr Chavez--nephrology, Dr Melissa-cardiology Preferred Pharmacy: [facility] Retail Insurance:[employer] Prescription Benefit: Yes Living Will/HPOA: Has both LW and HPOA, who is his friend, Manuel More. Copies are on e-file @ [facility] [place]K: Friend/POA, Manuel More, is the only contact listed. Living Arrangements: Lives alone. Independent. Has [employer] services and aides come Tues/Thurs from 9-12. Manuel takes pt to the store to get groceries. Pt states he prepares his own meals and manages his medications and appts. Transportation: Manuel or taxi. DME: States has the following DME: shower chair, lift chair, medical alert button, and working glucometer w/supplies. Has/but does not use: walker and rollator Pt states no need for further DME at this time. HHC/SNF: Hx [facility]. No hx HHC. Denies need for HHC or OP therapy Pt wishes to return home and states has no concerns with going home at time of discharge. CM to follow for any discharge planning/needs. Pt voices no concerns/needs at this time. Advised pt to ask for CM if any questions/concerns/needs arise. Voices understanding. PLAN: Home Claudette HICKS RN, CM
[2021-01-25 12:00] LABS: Bedside Glucose 143 mg/dL (70-110)
--- NOTE | 2021-01-25 12:20 | PCM.CONS.R ---
Assessment & Plan Assessment/Plan (1) Acute renal failure: QUALIFIERS: Acute renal failure type: unspecified Qualified Code(s): N17.9 - Acute kidney failure, unspecified PLAN: Creatinine 8.4 with baseline cr mid 3s. Suspect due to ATN from prolonged illness at home, hypotension, dehydration without symptoms. Continue with iv hydration and monitor renal fxn without dialysis for today. Discussed with pt that he may need dialysis if unresponsive to iv fluids. (2) CKD stage 4 due to type 2 diabetes mellitus: PLAN: baseline creatinine mid 4 eGFR 20cc/min from diabetes (3) Acute hyperkalemia: PLAN: improved with kayexalate. Lisinopril held. Follow low K diet (4) Essential (primary) hypertension: PLAN: low BP improved with iv fluids. Hold ACEI and CCB for now. (5) Secondary hyperparathyroidism (of renal origin): PLAN: resume calcitriol 0.25mcg daily (6) Anemia due to stage 4 chronic kidney disease: PLAN: check iron studies (7) Metabolic acidosis: PLAN: replace with bicarb drip HPI Consult Data Date of Consult: 01/27/21 HPI Narrative HPI Narrative: JUVENCIO QUINTERO, is a 60 M with CKD stage 4 due to diabetic nephropathy baseline creatinine in the 3's sent to ER for CHANTALE on CKD on routine labs drawn for f/u appt in my office yesterday. He admit to weight loss with decreased appetite blaming it on the heat. Denied nausea, vomiting, diarrhea. Denies CP, SOB or edema. Urine output improved with iv fluids. Creatinine remains above baseline at 8 today. His potassium was elevated at 6.4 on admit with metabolic acidosis. Potassium improved with medical management. Discussed with pt may need dialysis if unresponsive to iv fluids. [facility] Medical History Chronic diastolic (congestive) heart failure CKD (chronic kidney disease), stage III Diabetes mellitus, type II Essential (primary) hypertension Falls frequently HLD (hyperlipidemia) Hyperosmolar non-ketotic state in patient with type 2 diabetes mellitus Implantable cardioverter-defibrillator (ICD) in situ Left bundle branch block (LBBB) Morbid obesity Non-ischemic cardiomyopathy Nonsustained ventricular tachycardia RAQUEL (obstructive sleep apnea) Right foot drop Venous ulcer of left lower extremity without varicose veins Home Medications allopurinol 150 mg PO DAILY 01/27/16 [History Last Taken 01/24/21] carvedilol 37.5 tab PO BID 01/27/16 [History Last Taken 01/24/21] linagliptin 5 mg PO DAILY 08/05/17 [History Last Taken 01/24/21] ammonium lactate 1 applicatio TP DAILY PRN PRN 12/23/18 [History Last Taken 01/24/21] latanoprost 1 drp EACH EYE DAILY 12/23/18 [History Last Taken 01/23/21] tamsulosin 0.4 mg capsule 0.4 mg PO DAILY 06/21/19 [History Last Taken 01/24/21] amlodipine 10 mg PO DAILY 01/24/21 [History Last Taken 01/24/21] lisinopril 5 mg PO DAILY 01/24/21 [History Last Taken 01/24/21] Allergy/AdvReac Type Severity Reaction Status Date / Time No Known Allergies Allergy Verified 08/28/20 08:29 Family History Father Hypertension Heart disease Diabetes Mother Diabetes Surgical History H/O skin graft Social History Smoking Status: Never smoker substance use type: does not use ROS Constitutional Constitutional: Reports weight loss and other Details: lost 35# ; Denies chills, fever(s), malaise or weakness Eyes Eyes: Denies blurry vision ENT HEENT: Denies loss taste/smell Cardiovascular Cardiovascular: Denies chest pain, irregular heart rhythm or palpitations Respiratory/Chest Respiratory/Chest: Reports dry cough; Denies dyspnea on exertion or shortness of breath at rest Gastrointestinal Gastrointestinal: Reports anorexia; Denies diarrhea, nausea or vomiting Genitourinary Genitourinary: Denies difficulty urinating, dysuria or flank pain Musculoskeletal Musculoskeletal: Denies abnormal gait Integumentary Integumentary: Denies rash Neurologic Neurologic: Denies confusion or focal weakness Psychiatric Psychiatric: Reports anxiety; Denies depression Hematologic/Lymphatic Hematologic/Lymphatic: Reports anemia Physical Exam Const alert, oriented x3 and no apparent distress HEENT normocephalic HEENT Narrative: scalp lesion old dry mucus membranes Eyes no scleral icterus Resp clear to auscultation bilaterally Cardio regular rate and no rub GI non-tender and non-distended GI Narrative: obese Auscultation: normoactive bowel sounds Palpation: soft Narrative: urine output volume not documented Back/Spine normal ROM Extremity full ROM Skin no wounds Neuro Sensorium / Orientation: awake, alert, oriented to person, oriented to place, oriented to time and other no asterixis, no tremor Psych cooperative Lab / Micro Data Result Diagrams: 01/27/21 04:46 01/27/21 04:46 Labs: Laboratory Results - last 24 hr 01/24/21 01/24/21 01/24/21 15:36 18:07 18:22 WBC RBC Hgb Hct MCV MCH MCHC RDW Std Deviation RDW Coeff of Jeffrey Plt Count MPV Immature Gran % (Auto) Neut % (Auto) Lymph % (Auto) [place] % (Auto) Eos % (Auto) Baso % (Auto) Absolute Neuts (auto) Absolute Lymphs (auto) Nucleated RBC % Sodium 142 Potassium 5.9 H Chloride 117 H Carbon Dioxide 15.0 L Anion Gap 10 BUN 156 H* Creatinine 8.40 H* Estim Creat Clear Calc 9.71 Est GFR (MDRD) Af Amer 8 L Est GFR (MDRD) Non-Af 7 L BUN/Creatinine Ratio 18.6 Glucose 113 H Calcium 8.9 Magnesium Urine Color Yellow Urine Clarity Turbid Urine pH 6.5 Ur Specific [place] 1.010 Urine Protein 100 H Urine Glucose (UA) Normal Urine Ketones Negative Urine Occult Blood 150 H Urine Nitrite Negative Urine Bilirubin Negative Urine Urobilinogen Normal Ur Leukocyte Esterase 500 H Urine RBC 0 SEEN Urine WBC >100 SEEN Ur Squamous Epith Cells 0 SEEN Urine Bacteria 0 SEEN Urine Mucus 0 SEEN POC Glucose 114 H 01/24/21 01/25/21 01/25/21 21:53 06:05 06:05 WBC 7.1 RBC 3.59 L Hgb 8.5 L Hct 28.2 L MCV 78.6 L MCH 23.7 L MCHC 30.1 L RDW Std Deviation 52.0 H RDW Coeff of Jeffrey 18.2 H Plt Count 218 MPV 10.0 Immature Gran % (Auto) 0.400 Neut % (Auto) 70.2 H Lymph % (Auto) 14.8 L [place] % (Auto) 9.5 Eos % (Auto) 4.5 Baso % (Auto) 0.6 Absolute Neuts (auto) 5.0 Absolute Lymphs (auto) 1.04 Nucleated RBC % 0 Sodium 143 Potassium 5.3 H Chloride 121 H Carbon Dioxide 13.0 L Anion Gap 9 BUN 152 H* Creatinine 8.08 H* Estim Creat Clear Calc 10.10 Est GFR (MDRD) Af Amer 9 L Est GFR (MDRD) Non-Af 7 L BUN/Creatinine Ratio 18.8 Glucose 98 Calcium 8.5 Magnesium Urine Color Urine Clarity Urine pH Ur Specific [place] Urine Protein Urine Glucose (UA) Urine Ketones Urine Occult Blood Urine Nitrite Urine Bilirubin Urine Urobilinogen Ur Leukocyte Esterase Urine RBC Urine WBC Ur Squamous Epith Cells Urine Bacteria Urine Mucus POC Glucose 130 H 01/25/21 01/25/21 01/25/21 06:05 06:45 11:52 WBC RBC Hgb Hct MCV MCH MCHC RDW Std Deviation RDW Coeff of Jeffrey Plt Count MPV Immature Gran % (Auto) Neut % (Auto) Lymph % (Auto) [place] % (Auto) Eos % (Auto) Baso % (Auto) Absolute Neuts (auto) Absolute Lymphs (auto) Nucleated RBC % Sodium Potassium Chloride Carbon Dioxide Anion Gap BUN Creatinine Estim Creat Clear Calc Est GFR (MDRD) Af Amer Est GFR (MDRD) Non-Af BUN/Creatinine Ratio Glucose Calcium Magnesium 1.7 Urine Color Urine Clarity Urine pH Ur Specific [place] Urine Protein Urine Glucose (UA) Urine Ketones Urine Occult Blood Urine Nitrite Urine Bilirubin Urine Urobilinogen Ur Leukocyte Esterase Urine RBC Urine WBC Ur Squamous Epith Cells Urine Bacteria Urine Mucus POC Glucose 92 143 H Radiology Impression Chest X-Ray 01/24/21 14:38 IMPRESSION: Mild cardiomegaly. Electronically Signed: Leonard Nunez MD at 15:34 EDT , Service support ,
--- NOTE | 2021-01-25 12:53 | PN.HOSP_ITS ---
Documented by User: Juan ROSE 01/25/21 13:08 Subjective Subjective Patient is a 60-year-old male comfortably resting in bed and eating breakfast, alert and oriented x3. Patient reports no change or progression in symptoms from yesterday. Denies chest pain, shortness of breath, sputum production, hem optysis, fever, chills, N/V/D. Objective Data Objective Data Vital Signs: Vital Signs Temp Pulse Resp BP Pulse Ox 97.4 F L 125 H 18 108/72 100 01/25/21 09:20 01/25/21 11:00 01/25/21 09:20 01/25/21 09:20 01/25/21 09:20 Oxygen Delivery Method Room Air Weight: 317 lb 4.8 oz Body Mass Index (BMI) 44.2 Intake & Output: Intake and Output for Last 24 Hours 01/23/21 01/24/21 01/25/21 23:59 23:59 23:59 Intake Total 1782.5 / 1782.5 2467.5 / 2467.5 Balance 1782.5 / 1782.5 2467.5 / 2467.5 Lab / Micro Data Result Diagrams: 01/26/21 06:13 01/26/21 06:13 Labs: Laboratory Results - last 24 hr 01/24/21 01/24/21 01/24/21 15:36 18:07 18:22 WBC RBC Hgb Hct MCV MCH MCHC RDW Std Deviation RDW Coeff of Jeffrey Plt Count MPV Immature Gran % (Auto) Neut % (Auto) Lymph % (Auto) [place] % (Auto) Eos % (Auto) Baso % (Auto) Absolute Neuts (auto) Absolute Lymphs (auto) Nucleated RBC % Sodium 142 Potassium 5.9 H Chloride 117 H Carbon Dioxide 15.0 L Anion Gap 10 BUN 156 H* Creatinine 8.40 H* Estim Creat Clear Calc 9.71 Est GFR (MDRD) Af Amer 8 L Est GFR (MDRD) Non-Af 7 L BUN/Creatinine Ratio 18.6 Glucose 113 H Calcium 8.9 Magnesium Urine Color Yellow Urine Clarity Turbid Urine pH 6.5 Ur Specific [place] 1.010 Urine Protein 100 H Urine Glucose (UA) Normal Urine Ketones Negative Urine Occult Blood 150 H Urine Nitrite Negative Urine Bilirubin Negative Urine Urobilinogen Normal Ur Leukocyte Esterase 500 H Urine RBC 0 SEEN Urine WBC >100 SEEN Ur Squamous Epith Cells 0 SEEN Urine Bacteria 0 SEEN Urine Mucus 0 SEEN POC Glucose 114 H 01/24/21 01/25/21 01/25/21 21:53 06:05 06:05 WBC 7.1 RBC 3.59 L Hgb 8.5 L Hct 28.2 L MCV 78.6 L MCH 23.7 L MCHC 30.1 L RDW Std Deviation 52.0 H RDW Coeff of Jeffrey 18.2 H Plt Count 218 MPV 10.0 Immature Gran % (Auto) 0.400 Neut % (Auto) 70.2 H Lymph % (Auto) 14.8 L [place] % (Auto) 9.5 Eos % (Auto) 4.5 Baso % (Auto) 0.6 Absolute Neuts (auto) 5.0 Absolute Lymphs (auto) 1.04 Nucleated RBC % 0 Sodium 143 Potassium 5.3 H Chloride 121 H Carbon Dioxide 13.0 L Anion Gap 9 BUN 152 H* Creatinine 8.08 H* Estim Creat Clear Calc 10.10 Est GFR (MDRD) Af Amer 9 L Est GFR (MDRD) Non-Af 7 L BUN/Creatinine Ratio 18.8 Glucose 98 Calcium 8.5 Magnesium Urine Color Urine Clarity Urine pH Ur Specific [place] Urine Protein Urine Glucose (UA) Urine Ketones Urine Occult Blood Urine Nitrite Urine Bilirubin Urine Urobilinogen Ur Leukocyte Esterase Urine RBC Urine WBC Ur Squamous Epith Cells Urine Bacteria Urine Mucus POC Glucose 130 H 01/25/21 01/25/21 01/25/21 06:05 06:45 11:52 WBC RBC Hgb Hct MCV MCH MCHC RDW Std Deviation RDW Coeff of Jeffrey Plt Count MPV Immature Gran % (Auto) Neut % (Auto) Lymph % (Auto) [place] % (Auto) Eos % (Auto) Baso % (Auto) Absolute Neuts (auto) Absolute Lymphs (auto) Nucleated RBC % Sodium Potassium Chloride Carbon Dioxide Anion Gap BUN Creatinine Estim Creat Clear Calc Est GFR (MDRD) Af Amer Est GFR (MDRD) Non-Af BUN/Creatinine Ratio Glucose Calcium Magnesium 1.7 Urine Color Urine Clarity Urine pH Ur Specific [place] Urine Protein Urine Glucose (UA) Urine Ketones Urine Occult Blood Urine Nitrite Urine Bilirubin Urine Urobilinogen Ur Leukocyte Esterase Urine RBC Urine WBC Ur Squamous Epith Cells Urine Bacteria Urine Mucus POC Glucose 92 143 H Radiography Diagnostic Testing: Radiology Impression Chest X-Ray 01/24/21 14:38 IMPRESSION: Mild cardiomegaly. Electronically Signed: Leonard Nunez MD at 15:34 EDT , Service support , Physical Exam Narrative See subjective. Const alert, oriented x3 and no apparent distress HEENT head/scalp atraumatic and moist oral mucous membranes Head and Scalp: normocephalic Eyes PERRL, EOMs intact bilaterally and conjunctivae normal Neck no lymphadenopathy, supple and no JVD Resp normal respiratory effort, no retractions, no use of accessory muscles and clear to auscultation bilaterally Cardio regular rate, regular rhythm, no murmurs and no JVD GI normal to inspection, nondistended, normoactive bowel sounds, soft to palpation, non-tender and non-distended Extremity normal to inspection, full ROM and no clubbing, cyanosis or edema Skin no rashes or lesions noted, no wounds and skin turgor normal Neuro CN's II-XII intact bilaterally Psych affect normal Assessment & Plan Assessment/Plan (1) Acute hyperkalemia: (2) CKD stage 4 due to type 2 diabetes mellitus: (3) CHANTALE (acute kidney injury): (4) Essential (primary) hypertension: (5) HLD (hyperlipidemia): QUALIFIERS: Hyperlipidemia type: unspecified Qualified Code(s): E78.5 - Hyperlipidemia, unspecified (6) Acute renal failure: QUALIFIERS: Acute renal failure type: unspecified Qualified Code(s): N17.9 - Acute kidney failure, unspecified PLAN: See subjective for patient presentation. Patient remained admitted overnight to monitor renal function. 1) CHANTALE Creatinine currently 8.08, down from admission. Nephrology following. Plan; hold dialysis for now, continue IV hydration, continue to monitor creatinine and renal function. 2) hyperkalemia Currently 5.3, improved from admission with Kayexalate. Plan; continue to hold lisinopril, follow low potassium diet. 3) DM2 Hold home linagliptin due to #1. Plan; continue sliding scale insulin, hemoglobin A1c ordered. 4) nonischemic cardiomyopathy Stable, continue carvedilol. Hold lisinopril due to #2. 5) gout Stable, hold allopurinol due to #1. DVT prophylaxis -Lovenox SC Patient seen by Juan Solomon PA-C, under the supervision of Dr. Rizvi. Documented by User: Dr. Gayathri Rizvi MD 01/26/21 07:42 Objective Data Lab / Micro Data Result Diagrams: 01/26/21 06:13 01/26/21 06:13 Charges/Coding Addendum Addendum: This patient was seen in conjunction with ROSE Rick. I have independently interviewed and examined the patient and reviewed pertinent historical, laboratory, and other data. Please refer to ROSE Rick's note for his patient's presentation, findings, and recommendations. I have reviewed and his note and concur with his documentation Patient seen and examined. Denies chest pain, dizziness. Physical Exam: Gen: Comfortable, not pale, not jaundiced CVS:HS I +II, regular, no murmurs RESP: Diminished at lung bases GI: BS present and normal, soft, nontender, no palpable organs EXT:No edema ASSESSMENT: 1. Hyperkalemia 2. CHANTALE on CKD stage 4 3. Hypertension 4. Hyperlipidemia 5. Type 2 DM 6. Nonischemic cardiomyopathy Plan: Continue on IV fluids, trend labs, continue to monitor blood sugars Follow-up with nephrology recommendations Visit Charges Inpatient E&M: 99872 Subs Hosp L2
--- NOTE | 2021-01-25 13:08 | NURSING ---
wound photo: left medial lower leg
[2021-01-25 13:28] LABS: Hemoglobin A1c 6.5 % (3.8-5.6)
--- NOTE | 2021-01-25 14:02 | CASEMGMT ---
Patient's insurance case manager is Adina Farr with [employer]. Adina said patient gets Meals on Wheels, [employer], medical alert button, and he has [employer] aides for 3 hours twice weekly. SW will fax d/c instructions once completed. Giselle SCHMITT
[2021-01-25 16:55] LABS: Bedside Glucose 117 mg/dL (70-110)
[2021-01-25 23:31] LABS: Bedside Glucose 107 mg/dL (70-110)
[2021-01-26] VITALS (9 sets, daily range): BP systolic 127–143; BP diastolic 70–77; PULSE 73–104; RESP 15–18; TEMP 36.2–36.8; O2SAT 96–100
[2021-01-26 06:44] LABS: Absolute Lymphocyte Count 1.09 X10^3/uL (0.83-4.51); Absolute Neutrophil Count 3.4 X10^3/uL (2.0-7.7); Basophil# 0.04 X10^3/uL; Basophil% 0.7 % (0-1); Hematocrit 25.8 % (40-54); Hemoglobin 7.7 g/dL (13.0-16.5); Lymphocyte # 1.09 X10^3/ul (0.83-4.51); Mean Corp Hgb Conc 29.8 g/dL (32-36); Mean Corpuscular Hgb 23.3 pg (27.0-32.0); Mean Corpuscular Volume 77.9 fL (80-94); Mean Platelet Vol. 10.7 fl (6.2-12.0); Monocyte# 0.81 X10^3/uL; Monocyte% 14.1 % (0-10); NRBC Flagged by Analyzer 0 % (0-5); Neutrophil # 3.38 X10^3/uL (2.7-7.7); Neutrophil % 58.7 % (47-70); Platelet Count 214 K/mm3 (150-450); RBC Distribution Width CV 17.8 % (11.6-14.6); RBC Distribution Width SD 50.1 fl (35.1-43.9); Red Blood Count 3.31 M/mm3 (4.6-6.2); White Blood Count 5.8 K/mm3 (4.4-11.0)
[2021-01-26 06:46] LABS: Bedside Glucose 108 mg/dL (70-110)
[2021-01-26 07:24] LABS: Albumin, Serum 2.6 g/dL (3.2-5.0); BUN 138 mg/dL (7-18); BUN/Creat Ratio 19.5 RATIO (10-20); Calcium,Total 8.4 mg/dL (8.5-10.1); Chloride 117 mmol/L (98-107); Creatinine, Serum 7.08 mg/dL (0.70-1.30); EST Glomerular Filtration Rate 8 mL/min (>60); Est Glom Filt Rate - Afr Amer 10 mL/min (>60); Estimated Creatinine Clearance 11.52 ml/min; Ferritin 297 ng/mL (26-388); Glucose 104 mg/dL (74-106); Iron 41 ug/dL (65-175); Phosphorus 5.2 mg/dL (2.5-4.9); Potassium 4.3 mmol/L (3.5-5.1); Sodium Level 142 mmol/L (136-145)
[2021-01-26] MEDS: Carvedilol 25 MG Tablet 37.5 MG PO ×2 (10:05→21:49)
[2021-01-26] MEDS: Heparin Injection (Vial) 5,000 UNIT/ML VIAL 5000 UNIT SC ×2 (10:06→21:50)
[2021-01-26] MEDS: Latanoprost 0.005% 1 Bottle 1 DRP EACH EYE (10:09)
[2021-01-26 11:46] LABS: Bedside Glucose 137 mg/dL (70-110)
--- NOTE | 2021-01-26 15:07 | PN.HOSP_ITS ---
Documented by User: Juan ROSE 01/26/21 15:14 Subjective Subjective Patient is a 60-year-old male comfortably resting in bed, alert and orient x3. Patient denies any change or progression of symptoms from yesterday. Denies chest pain, shortness of breath, palpitations, hematochezia, melena, fevers, c hills, N/V/D. Objective Data Objective Data Vital Signs: Vital Signs Temp Pulse Resp BP Pulse Ox 97.9 F 80 18 127/70 H 99 01/26/21 09:00 01/26/21 11:00 01/26/21 09:00 01/26/21 09:00 01/26/21 09:00 Oxygen Delivery Method Room Air Weight: 317 lb 4.8 oz Body Mass Index (BMI) 44.2 Intake & Output: Intake and Output for Last 24 Hours 01/24/21 01/25/21 01/26/21 23:59 23:59 23:59 Intake Total 1782.5 / 1782.5 3762.5 / 3762.5 2401.67 / 2401.67 Balance 1782.5 / 1782.5 3762.5 / 3762.5 2401.67 / 2401.67 Lab / Micro Data Result Diagrams: 01/27/21 04:46 01/27/21 04:46 Labs: Laboratory Results - last 24 hr 01/25/21 01/25/21 01/26/21 16:51 23:27 06:13 WBC 5.8 RBC 3.31 L Hgb 7.7 L Hct 25.8 L MCV 77.9 L MCH 23.3 L MCHC 29.8 L RDW Std Deviation 50.1 H RDW Coeff of Jeffrey 17.8 H Plt Count 214 MPV 10.7 Immature Gran % (Auto) 0.500 Neut % (Auto) 58.7 Lymph % (Auto) 19.0 [place] % (Auto) 14.1 H Eos % (Auto) 7.0 H Baso % (Auto) 0.7 Absolute Neuts (auto) 3.4 Absolute Lymphs (auto) 1.09 Nucleated RBC % 0 Sodium Potassium Chloride Carbon Dioxide BUN Creatinine Estim Creat Clear Calc Est GFR (MDRD) Af Amer Est GFR (MDRD) Non-Af BUN/Creatinine Ratio Glucose Calcium Phosphorus Iron Ferritin Albumin POC Glucose 117 H 107 01/26/21 01/26/21 01/26/21 06:13 06:42 11:06 WBC RBC Hgb Hct MCV MCH MCHC RDW Std Deviation RDW Coeff of Jeffrey Plt Count MPV Immature Gran % (Auto) Neut % (Auto) Lymph % (Auto) [place] % (Auto) Eos % (Auto) Baso % (Auto) Absolute Neuts (auto) Absolute Lymphs (auto) Nucleated RBC % Sodium 142 Potassium 4.3 Chloride 117 H Carbon Dioxide 18.0 L BUN 138 H* Creatinine 7.08 H Estim Creat Clear Calc 11.52 Est GFR (MDRD) Af Amer 10 L Est GFR (MDRD) Non-Af 8 L BUN/Creatinine Ratio 19.5 Glucose 104 Calcium 8.4 L Phosphorus 5.2 H Iron 41 L Ferritin 297 Albumin 2.6 L POC Glucose 108 137 H Physical Exam Narrative See subjective. Const alert, oriented x3 and no apparent distress HEENT head/scalp atraumatic and moist oral mucous membranes Head and Scalp: normocephalic Eyes PERRL, EOMs intact bilaterally and conjunctivae normal Neck no lymphadenopathy, supple and no JVD Resp normal respiratory effort, no retractions, no use of accessory muscles and clear to auscultation bilaterally Cardio regular rate, regular rhythm, no murmurs and no JVD GI normal to inspection, nondistended, normoactive bowel sounds, soft to palpation and non-tender Extremity normal to inspection, full ROM and no clubbing, cyanosis or edema Skin no rashes or lesions noted, no wounds and skin turgor normal Neuro CN's II-XII intact bilaterally Psych affect normal Assessment & Plan Assessment/Plan (1) CHANTALE (acute kidney injury): (2) Metabolic acidosis: (3) Anemia due to stage 4 chronic kidney disease: (4) CKD stage 4 due to type 2 diabetes mellitus: (5) Acute hyperkalemia: (6) HLD (hyperlipidemia): QUALIFIERS: Hyperlipidemia type: unspecified Qualified Code(s): E78.5 - Hyperlipidemia, unspecified (7) Anemia: PLAN: See subjective for patient presentation. 1) CHANTALE Creatinine currently 7.08, down from admission. BUN currently 138, down from mission. Nephrology following. Plan; hold dialysis for now, continue IV hydration, continue to monitor creatinine and renal function. 2) hyperkalemia Currently 5.3, improved from admission with Kayexalate. Plan; continue to hold lisinopril, follow low potassium diet. 3) DM2 Hold home linagliptin due to #1. Plan; continue sliding scale insulin, hemoglobin A1c ordered. 4) nonischemic cardiomyopathy Stable, continue carvedilol. Hold lisinopril due to #2. 5) gout Stable, hold allopurinol due to #1. 6) Acute Anemia Hemoglobin currently 7.7, above 12 at baseline. Suspect iron deficiency as iron is 41. No evidence of an acute bleed, patient denies hematochezia or melena. Plan; Venofer given, continue to monitor. DVT prophylaxis -Lovenox SC Patient seen by Juan Solomon PA-C, under the supervision of Dr. Rizvi. Documented by User: Dr. Gayathri Rizvi MD 01/27/21 07:38 Objective Data Lab / Micro Data Result Diagrams: 01/27/21 04:46 01/27/21 04:46 Charges/Coding Addendum Addendum: This patient was seen in conjunction with ROSE Rick. I have independently interviewed and examined the patient and reviewed pertinent historical, laboratory, and other data. Please refer to ROSE Rick's note for his patient's presentation, findings, and recommendations. I have reviewed and his note and concur with his documentation Patient seen and examined. No new complaints. Feels improved. Denies chest pain, dizziness. Physical Exam: Gen: Comfortable, not pale, not jaundiced CVS:HS I +II, regular, no murmurs RESP: Diminished at lung bases GI: BS present and normal, soft, nontender, no palpable organs EXT:No edema ASSESSMENT: 1. Hyperkalemia 2. CHANTALE on CKD stage 4 3. Hypertension 4. Hyperlipidemia 5. Type 2 DM 6. Nonischemic cardiomyopathy 7. Iron deficiency anemia Plan: Continue on IV fluids, repeat labs, continue to monitor blood sugars Follow-up with nephrology recommendations Visit Charges Inpatient E&M: 68592 Subs Hosp L2
[2021-01-26 16:50] LABS: Bedside Glucose 166 mg/dL (70-110)
[2021-01-26] MEDS: Insulin Lispro 100 UNIT/ML INSULN.PEN SC (16:51)
[2021-01-26 23:06] LABS: Bedside Glucose 112 mg/dL (70-110)
[2021-01-27] VITALS (10 sets, daily range): BP systolic 115–140; BP diastolic 71–79; PULSE 69–96; RESP 18; TEMP 36.3–37; O2SAT 97–100
[2021-01-27 05:16] LABS: Absolute Lymphocyte Count 1.02 X10^3/uL (0.83-4.51); Absolute Neutrophil Count 3.6 X10^3/uL (2.0-7.7); Basophil# 0.03 X10^3/uL; Basophil% 0.5 % (0-1); Eosinophil# 0.47 X10^3/uL; Hematocrit 27.2 % (40-54); Hemoglobin 8.5 g/dL (13.0-16.5); Lymphocyte # 1.02 X10^3/ul (0.83-4.51); Lymphocyte % 17.3 % (19-41); Mean Corp Hgb Conc 31.3 g/dL (32-36); Mean Corpuscular Hgb 24.4 pg (27.0-32.0); Mean Corpuscular Volume 77.9 fL (80-94); Mean Platelet Vol. 10.4 fl (6.2-12.0); Monocyte# 0.78 X10^3/uL; Monocyte% 13.2 % (0-10); NRBC Flagged by Analyzer 0 % (0-5); Neutrophil # 3.56 X10^3/uL (2.7-7.7); Neutrophil % 60.3 % (47-70); Platelet Count 213 K/mm3 (150-450); RBC Distribution Width CV 17.9 % (11.6-14.6); RBC Distribution Width SD 50.4 fl (35.1-43.9); Red Blood Count 3.49 M/mm3 (4.6-6.2); White Blood Count 5.9 K/mm3 (4.4-11.0)
[2021-01-27 05:54] LABS: Albumin, Serum 2.6 g/dL (3.2-5.0); BUN 122 mg/dL (7-18); BUN/Creat Ratio 19.5 RATIO (10-20); Calcium,Total 8.2 mg/dL (8.5-10.1); Chloride 113 mmol/L (98-107); Creatinine, Serum 6.26 mg/dL (0.70-1.30); EST Glomerular Filtration Rate 10 mL/min (>60); Est Glom Filt Rate - Afr Amer 12 mL/min (>60); Estimated Creatinine Clearance 13.03 ml/min; Glucose 110 mg/dL (74-106); Sodium Level 142 mmol/L (136-145)
[2021-01-27 06:45] LABS: Bedside Glucose 124 mg/dL (70-110)
[2021-01-27] MEDS: Carvedilol 25 MG Tablet 37.5 MG PO ×2 (10:11→21:07)
[2021-01-27] MEDS: Heparin Injection (Vial) 5,000 UNIT/ML VIAL 5000 UNIT SC ×2 (10:14→21:07)
[2021-01-27] MEDS: Latanoprost 0.005% 1 Bottle 1 DRP EACH EYE (10:16)
--- NOTE | 2021-01-27 10:32 | PN.HOSP_ITS ---
Documented by User: Juan ROSE 01/27/21 11:18 Subjective Subjective Patient is a 60-year-old male comfortably resting in the chair, alert and oriented x3. Patient denies any change or progression since her from yesterday. Denies chest pain, shortness of breath, palpitations, hemoptysis, fever, chills , N/V/D. Objective Data Objective Data Vital Signs: Vital Signs Temp Pulse Resp BP Pulse Ox 98.3 F 90 18 122/71 H 100 01/27/21 09:20 01/27/21 09:20 01/27/21 09:20 01/27/21 09:20 01/27/21 09:20 Oxygen Delivery Method Room Air Weight: 317 lb 4.8 oz Body Mass Index (BMI) 44.2 Intake & Output: Intake and Output for Last 24 Hours 01/25/21 01/26/21 01/27/21 23:59 23:59 23:59 Intake Total 3762.5 / 3762.5 3275.00 / 3275.00 1100 / 1100 Balance 3762.5 / 3762.5 3275.00 / 3275.00 1100 / 1100 Lab / Micro Data Result Diagrams: 01/27/21 04:46 01/27/21 04:46 Labs: Laboratory Results - last 24 hr 01/26/21 01/26/21 01/26/21 11:06 16:45 21:47 WBC RBC Hgb Hct MCV MCH MCHC RDW Std Deviation RDW Coeff of Jeffrey Plt Count MPV Immature Gran % (Auto) Neut % (Auto) Lymph % (Auto) [place] % (Auto) Eos % (Auto) Baso % (Auto) Absolute Neuts (auto) Absolute Lymphs (auto) Nucleated RBC % Sodium Potassium Chloride Carbon Dioxide BUN Creatinine Estim Creat Clear Calc Est GFR (MDRD) Af Amer Est GFR (MDRD) Non-Af BUN/Creatinine Ratio Glucose Calcium Phosphorus Albumin POC Glucose 137 H 166 H 112 H 01/27/21 01/27/21 01/27/21 04:46 04:46 06:25 WBC 5.9 RBC 3.49 L Hgb 8.5 L Hct 27.2 L MCV 77.9 L MCH 24.4 L MCHC 31.3 L D RDW Std Deviation 50.4 H RDW Coeff of Jeffrey 17.9 H Plt Count 213 MPV 10.4 Immature Gran % (Auto) 0.700 Neut % (Auto) 60.3 Lymph % (Auto) 17.3 L [place] % (Auto) 13.2 H Eos % (Auto) 8.0 H Baso % (Auto) 0.5 Absolute Neuts (auto) 3.6 Absolute Lymphs (auto) 1.02 Nucleated RBC % 0 Sodium 142 Potassium 4.0 Chloride 113 H Carbon Dioxide 20.0 L BUN 122 H* Creatinine 6.26 H Estim Creat Clear Calc 13.03 Est GFR (MDRD) Af Amer 12 L Est GFR (MDRD) Non-Af 10 L BUN/Creatinine Ratio 19.5 Glucose 110 H Calcium 8.2 L Phosphorus 4.0 Albumin 2.6 L POC Glucose 124 H Physical Exam Narrative See subjective. Const alert, oriented x3 and no apparent distress HEENT head/scalp atraumatic and moist oral mucous membranes Head and Scalp: normocephalic Eyes PERRL, EOMs intact bilaterally and conjunctivae normal Neck no lymphadenopathy, supple and no JVD Resp normal respiratory effort, no retractions, no use of accessory muscles and clear to auscultation bilaterally Cardio regular rate, regular rhythm, no murmurs and no JVD GI normal to inspection, nondistended, normoactive bowel sounds, soft to palpation, non-tender and non-distended Extremity normal to inspection, full ROM and no clubbing, cyanosis or edema Skin no rashes or lesions noted, no wounds and skin turgor normal Neuro CN's II-XII intact bilaterally Psych affect normal Assessment & Plan Assessment/Plan (1) Anemia: (2) Metabolic acidosis: (3) CHANTLAE (acute kidney injury): (4) CKD stage 4 due to type 2 diabetes mellitus: (5) Acute hyperkalemia: (6) HLD (hyperlipidemia): QUALIFIERS: Hyperlipidemia type: unspecified Qualified Code(s): E78.5 - Hyperlipidemia, unspecified (7) Diabetes mellitus, type II: QUALIFIERS: Diabetes mellitus complication detail: with other skin ulcer Diabetes mellitus complication status: with skin complications 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 This provider contacted Dr. Chavez, pre parole counseling aide, who requested that the patient remain admitted for continued monitoring. Patient's kidney function is improving and is clinically stable, however nephrology would like to see continued improvement and continue monitoring. 1) CHANTALE Creatinine currently 6.26, down from admission. BUN currently 122, down from mission. Nephrology following. Plan; hold dialysis for now, continue IV hydration, ferric sodium gluconate complex ordered per nephrology, continue to monitor creatinine and renal function. 2) hyperkalemia Resolved, currently 4.0. 3) DM2 Hemoglobin A1c 6.5, stable and within goal. Hold home linagliptin due to #1. Plan; continue sliding scale insulin, 4) nonischemic cardiomyopathy Stable, continue carvedilol. Hold lisinopril due to #2. 5) gout Stable, hold allopurinol due to #1. 6) Acute Anemia Hemoglobin currently 8.5, above 12 at baseline. Suspect iron deficiency as iron is 41. No evidence of an acute bleed, patient denies hematochezia or melena. Plan; Venofer given, continue to monitor. 7) Left foot wound Culture of left leg demonstrated multiple organisms, however suspect contaminat ion as patient has no leukocytosis, vital signs are stable and patient has been afebrile throughout admission. Plan; blood cultures ordered, continue to monitor, hold antibiotics for now given patient presentation. DVT prophylaxis -Lovenox [place] Patient seen by Juan Solomon PA-C, under the supervision of Dr. Rizvi. Documented by User: Dr. Gayathri iRzvi MD 01/27/21 14:57 Objective Data Lab / Micro Data Result Diagrams: 01/27/21 04:46 01/27/21 04:46 Charges/Coding Addendum Addendum: This patient was seen in conjunction with ROSE Rick. I have independently interviewed and examined the patient and reviewed pertinent historical, laboratory, and other data. Please refer to ROSE Rick's note for his patient's presentation, findings, and recommendations. I have reviewed and his note and concur with his documentation Patient seen and examined. Denies chest pain, dizziness. Physical Exam: Gen: Comfortable, not pale, not jaundiced CVS:HS I +II, regular, no murmurs RESP: Diminished at lung bases GI: BS present and normal, soft, nontender, no palpable organs EXT:No edema ASSESSMENT: 1. Hyperkalemia 2. CHANTALE on CKD stage 4 3. Hypertension 4. Hyperlipidemia 5. Type 2 DM 6. Nonischemic cardiomyopathy Plan: Continue on IV fluids, trend labs, continue to monitor blood sugars Follow-up with nephrology recommendations Visit Charges Inpatient E&M: 36354 Subs Hosp L2
[2021-01-27 12:06] LABS: Bedside Glucose 133 mg/dL (70-110)
[2021-01-27 17:06] LABS: Bedside Glucose 139 mg/dL (70-110)
[2021-01-27] MEDS: 0.9% Normal Saline 1,000 ML 100 ML IV (20:05)
[2021-01-27 22:41] LABS: Bedside Glucose 128 mg/dL (70-110)
[2021-01-28] VITALS (8 sets, daily range): BP systolic 112–154; BP diastolic 72–81; PULSE 80–99; RESP 16–18; TEMP 36.4–37; O2SAT 95–98
[2021-01-28] MEDS: 0.9% Normal Saline 1,000 ML 100 ML IV (06:21)
[2021-01-28 06:35] LABS: Bedside Glucose 112 mg/dL (70-110)
[2021-01-28 06:56] LABS: Absolute Lymphocyte Count 0.93 X10^3/uL (0.83-4.51); Absolute Neutrophil Count 4.6 X10^3/uL (2.0-7.7); Basophil# 0.06 X10^3/uL; Basophil% 0.8 % (0-1); Eosinophil# 0.45 X10^3/uL; Eosinophils% 6.3 % (0-5); Hematocrit 28.3 % (40-54); Hemoglobin 8.5 g/dL (13.0-16.5); Lymphocyte # 0.93 X10^3/ul (0.83-4.51); Lymphocyte % 13.1 % (19-41); Mean Corpuscular Hgb 23.3 pg (27.0-32.0); Mean Corpuscular Volume 77.5 fL (80-94); Mean Platelet Vol. 10.6 fl (6.2-12.0); Monocyte# 1.07 X10^3/uL; Monocyte% 15.1 % (0-10); NRBC Flagged by Analyzer 0 % (0-5); Neutrophil # 4.56 X10^3/uL (2.7-7.7); Neutrophil % 64.3 % (47-70); Platelet Count 209 K/mm3 (150-450); RBC Distribution Width CV 18.1 % (11.6-14.6); RBC Distribution Width SD 50.8 fl (35.1-43.9); Red Blood Count 3.65 M/mm3 (4.6-6.2); White Blood Count 7.1 K/mm3 (4.4-11.0)
[2021-01-28 07:34] LABS: Albumin, Serum 2.7 g/dL (3.2-5.0); BUN 109 mg/dL (7-18); BUN/Creat Ratio 18.2 RATIO (10-20); Calcium,Total 8.4 mg/dL (8.5-10.1); Chloride 114 mmol/L (98-107); EST Glomerular Filtration Rate 10 mL/min (>60); Est Glom Filt Rate - Afr Amer 12 mL/min (>60); Glucose 109 mg/dL (74-106); Phosphorus 3.3 mg/dL (2.5-4.9); Potassium 4.2 mmol/L (3.5-5.1); Sodium Level 142 mmol/L (136-145)
--- NOTE | 2021-01-28 09:16 | PN.RENAL_ITS ---
Subjective Subjective feeling better, appetite good. No nausea, vomiting, shortness of breath, or cough. Urine output improving. Continue to hold lisinopril on discharge to home. Objective Data Objective Data Vital Signs: Vital Signs Temp Pulse Resp BP Pulse Ox 98.6 F 92 18 112/72 95 01/28/21 03:11 01/28/21 06:59 01/28/21 03:11 01/28/21 03:11 01/28/21 03:11 Oxygen Delivery Method Room Air Weight: 143.925 kg Body Mass Index (BMI) 44.2 Intake & Output: Intake and Output for Last 24 Hours 01/26/21 01/27/21 01/28/21 23:59 23:59 23:59 Intake Total 3275.00 / 3275.00 3190.00 / 3190.00 1000 / 1000 Output Total 790 / 790 Balance 3275.00 / 3275.00 3190.00 / 2940.00 210 / 210 Lab / Micro Data Result Diagrams: 01/28/21 06:35 01/28/21 06:35 Labs: Laboratory Results - last 24 hr 01/27/21 01/27/21 01/27/21 12:00 17:00 21:10 WBC RBC Hgb Hct MCV MCH MCHC RDW Std Deviation RDW Coeff of Jeffrey Plt Count MPV Immature Gran % (Auto) Neut % (Auto) Lymph % (Auto) [place] % (Auto) Eos % (Auto) Baso % (Auto) Absolute Neuts (auto) Absolute Lymphs (auto) Nucleated RBC % Sodium Potassium Chloride Carbon Dioxide BUN Creatinine Estim Creat Clear Calc Est GFR (MDRD) Af Amer Est GFR (MDRD) Non-Af BUN/Creatinine Ratio Glucose Calcium Phosphorus Albumin POC Glucose 133 H 139 H 128 H 01/28/21 01/28/21 01/28/21 06:24 06:35 06:35 WBC 7.1 RBC 3.65 L Hgb 8.5 L Hct 28.3 L MCV 77.5 L MCH 23.3 L MCHC 30.0 L RDW Std Deviation 50.8 H RDW Coeff of Jeffrey 18.1 H Plt Count 209 MPV 10.6 Immature Gran % (Auto) 0.400 Neut % (Auto) 64.3 Lymph % (Auto) 13.1 L [place] % (Auto) 15.1 H Eos % (Auto) 6.3 H Baso % (Auto) 0.8 Absolute Neuts (auto) 4.6 Absolute Lymphs (auto) 0.93 Nucleated RBC % 0 Sodium 142 Potassium 4.2 Chloride 114 H Carbon Dioxide 20.0 L BUN 109 H* Creatinine 6.00 H Estim Creat Clear Calc 13.60 Est GFR (MDRD) Af Amer 12 L Est GFR (MDRD) Non-Af 10 L BUN/Creatinine Ratio 18.2 Glucose 109 H Calcium 8.4 L Phosphorus 3.3 Albumin 2.7 L POC Glucose 112 H Micro: Microbiology 01/27/21 15:45 Stool Stool Occult Blood (CARITO) - Final Physical Exam Const alert and oriented x3 Resp clear to auscultation bilaterally Cardio regular rate and no rub GI non-tender and non-distended GI Narrative: obese Palpation: soft Extremity full ROM and no clubbing, cyanosis or edema Neuro Sensorium / Orientation: awake and alert Psych cooperative Assessment & Plan Assessment/Plan (1) Acute renal failure: QUALIFIERS: Acute renal failure type: unspecified Qualified Code(s): N17.9 - Acute kidney failure, unspecified PLAN: Creatinine improved to 6 today with good urine output. Continue to monitor as outpt without dialysis. Follow up with me on 02/05 at 1 pm. No uremic symptoms, volume status stable. Hold lisinopril on discharge to home. (2) CKD stage 4 due to type 2 diabetes mellitus: PLAN: baseline creatinine mid 4 eGFR 20cc/min from diabetes (3) Acute hyperkalemia: PLAN: improved with kayexalate. Lisinopril held. Follow low K diet (4) Essential (primary) hypertension: PLAN: low BP improved with iv fluids. Hold ACEI and CCB for now. (5) Secondary hyperparathyroidism (of renal origin): PLAN: resume calcitriol 0.25mcg daily (6) Anemia due to stage 4 chronic kidney disease: PLAN: iron iv given in hospital. Continue oral iron twice a day (7) Metabolic acidosis: PLAN: improved with bicarb drip
[2021-01-28] MEDS: Carvedilol 25 MG Tablet 37.5 MG PO (09:50)
[2021-01-28] MEDS: Latanoprost 0.005% 1 Bottle 1 DRP EACH EYE (09:50)
[2021-01-28] MEDS: Heparin Injection (Vial) 5,000 UNIT/ML VIAL 5000 UNIT SC (09:51)
--- NOTE | 2021-01-28 10:00 | PCM.DC ---
Discharge Instructions Diet Discharge Diet: No restrictions Activity Discharge Activity: Return to Normal Activity Follow Up Care Please Follow Up With: Omaira Chavez DO When: 02/05/2021 @ 1:00pm. Test Results: Test results from this visit will be discussed in further detail at your follow-up appointment, if applicable. Discharge Plan Admission Admit Date/Time: 01/24/21 17:33 Primary Reason for Your Visit: Abnormal labs in the setting of acute kidney injury. Attending Provider: Donna Haile Primary Care Provider: Juany Wylie Consulting Providers: Omaira Chavez Instructions Additional Instructions / Restrictions: Patient Problems: Altered Health Status related to Hospitalization Patient Goals: *Optimal Level of Health *Keep Appointments *Medication Compliance *Remain Safefollow low K diet follow up with Dr Chavez on 02/05/21 at 1pm. Renal profile, CBC in 1 week Discharge Orders/Prescriptions Prescriptions: Continued tamsulosin 0.4 mg capsule 0.4 mg PO DAILY RF: 0 carvedilol 25 MG tablet 37.5 tab PO BID RF: 0 allopurinol 300 MG tablet 150 mg PO DAILY RF: 0 linagliptin 5 MG tablet 5 mg PO DAILY RF: 0 latanoprost 1 DROP bottle 1 drp EACH EYE DAILY RF: 0 ammonium lactate 226 GM lotion 1 applicatio TP DAILY PRN PRN (Reason: IRRITATION) RF: 0 amlodipine 10 mg tablet 10 mg PO DAILY RF: 0 Held lisinopril 5 mg tablet 5 mg PO DAILY RF: 0 Hold Instructions: hold until follow up in office Referrals / Follow Up: Omaira Chavez DO [STAFF PHYSICIAN] - 02/05/21 1:00 pm (At your scheduled appointment on 02/05/2021 @ 1:00pm. ) Juany Wylie MD [Primary Care Provider] - 02/01/21 8:40 am (Appointment is with Dr. Bell) Disposition Disposition (needs filled in before D/C Order can be placed): Home, self care
[2021-01-28 10:23] LABS: Magnesium 1.2 mg/dL (1.6-2.6)
[2021-01-28] MEDS: Ferrous Sulfate 325 MG Tablet PO (11:08)
[2021-01-28] MEDS: Insulin Lispro 100 UNIT/ML INSULN.PEN SC (11:08)
[2021-01-28 11:15] LABS: Bedside Glucose 155 mg/dL (70-110)
[2021-01-28] MEDS: Magnesium Sulfate 4gm/100mL 4 GM/100 ML IV.SOLN. IV (11:47)
--- NOTE | 2021-01-28 11:51 | NURSING ---
wound photo: left medial lower leg
--- NOTE | 2021-01-28 13:22 | PCM.DC.SUM ---
Documented by User: Juan ROSE 01/28/21 16:03 Providers Date of Admission: 01/24/21 Primary Care Physician: Dr. Juany Wylie MD Consultations 01/24/21 17:39 Consult: Onc/Wound/jaw skinner Routine Comment: 01/24/21 17:48 Consult: Nephrology Routine Consulting Provider: Omaira Chavez Reason for Consult: chantale EMERGENT Consult: No MD Notified: Yes Date Notified: 01/24/21 Time Notified: 17:30 Method of Notification: Verbal Reason For Visit: CHANTALE Diagnosis Discharge Diagnosis (1) Acute renal failure: Status: Acute Code(s): N17.9 - Acute kidney failure, unspecified Qualifiers: Acute renal failure type: unspecified Qualified Code(s): N17.9 - Acute kidney failure, unspecified (2) CKD stage 4 due to type 2 diabetes mellitus: Status: Chronic Code(s): E11.22 - Type 2 diabetes mellitus with diabetic chronic kidney disease; N18.4 - Chronic kidney disease, stage 4 (severe) (3) Acute hyperkalemia: Status: Acute Code(s): E87.5 - Hyperkalemia (4) Essential (primary) hypertension: Status: Chronic Code(s): I10 - Essential (primary) hypertension (5) Secondary hyperparathyroidism (of renal origin): Status: Acute Code(s): N25.81 - Secondary hyperparathyroidism of renal origin (6) Anemia due to stage 4 chronic kidney disease: Status: Acute Code(s): N18.4 - Chronic kidney disease, stage 4 (severe); D63.1 - Anemia in chronic kidney disease (7) Metabolic acidosis: Status: Acute Code(s): E87.2 - Acidosis Medications at Discharge Home Medications allopurinol 150 mg PO DAILY 01/27/16 carvedilol 37.5 tab PO BID 01/27/16 linagliptin 5 mg PO DAILY 08/05/17 ammonium lactate 1 applicatio TP DAILY PRN PRN 12/23/18 latanoprost 1 drp EACH EYE DAILY 12/23/18 tamsulosin 0.4 mg capsule 0.4 mg PO DAILY 06/21/19 amlodipine 10 mg PO DAILY 01/24/21 lisinopril 5 mg PO DAILY 01/24/21 Hospital Course Summary of Care Provided Minutes Spent on Discharge: 35 Hospital Course: See subjective for patient presentation. Discharge planning; nephrology and hospital medicine team feel that patient is stable enough to return home. Patient is to follow-up with his fashion stylist, Dr. Chavez, on 02/05/2021. 1) CHANTALE Nephrology following. Creatinine currently 6.0, down from admission. Patient has adequate urinary output. Patient is to follow-up with Dr. Chavez as an outpatient, as above. 2) hyperkalemia Resolved, currently 4.0. 3) DM2 Hemoglobin A1c 6.5, stable and within goal. Home diabetic regimen to be continued on discharge. 4) nonischemic cardiomyopathy Stable, continue carvedilol and lisinopril. 5) gout Stable. Continue allopurinol. 6) Acute Anemia Hemoglobin currently 8.5, above 12 at baseline. Suspect iron deficiency as iron is 41. Stool occult blood negative. No evidence of an acute bleed, patient denies hematochezia or melena. Plan; continue oral iron at discharge. 7) Left foot wound Culture of left leg demonstrated multiple organisms, however suspect contamination as patient has no leukocytosis, vital signs are stable and patient has been afebrile throughout admission. Blood culture still pending. Patient seen by Juan Solomon PA-C, under the supervision of Dr. Haile. Physical Exam Narrative Patient is a 60-year-old male who is comfortably resting in a chair, alert and orient x3. Patient denies any change or progression since yesterday. Denies chest pain, shortness of breath, palpitations, hemoptysis, sputum production, fever, chills, N/V/D. Const alert, oriented x3 and no apparent distress HEENT normocephalic, head/scalp atraumatic and hearing grossly normal bilaterally Eyes PERRL and EOMs intact bilaterally Neck no lymphadenopathy, supple and no JVD Resp normal respiratory effort, no retractions, no use of accessory muscles and clear to auscultation bilaterally Cardio regular rate, regular rhythm, no murmurs and no JVD GI normal to inspection, nondistended, normoactive bowel sounds and soft to palpation Extremity normal to inspection Skin no rashes or lesions noted and no wounds Neuro CN's II-XII intact bilaterally Psych affect normal Weight / BMI Weight Weight: 317 lb 4.8 oz Body Mass Index (BMI) 44.2 ABG / Lab / Microbiology Data Result Diagrams: 01/28/21 06:35 01/28/21 06:35 Laboratory: Laboratory Results - last 24 hr 01/27/21 01/27/21 01/28/21 17:00 21:10 06:24 WBC RBC Hgb Hct MCV MCH MCHC RDW Std Deviation RDW Coeff of Jeffrey Plt Count MPV Immature Gran % (Auto) Neut % (Auto) Lymph % (Auto) [place] % (Auto) Eos % (Auto) Baso % (Auto) Absolute Neuts (auto) Absolute Lymphs (auto) Nucleated RBC % Sodium Potassium Chloride Carbon Dioxide BUN Creatinine Estim Creat Clear Calc Est GFR (MDRD) Af Amer Est GFR (MDRD) Non-Af BUN/Creatinine Ratio Glucose Calcium Phosphorus Magnesium Albumin POC Glucose 139 H 128 H 112 H 01/28/21 01/28/21 01/28/21 06:35 06:35 06:35 WBC 7.1 RBC 3.65 L Hgb 8.5 L Hct 28.3 L MCV 77.5 L MCH 23.3 L MCHC 30.0 L RDW Std Deviation 50.8 H RDW Coeff of Jeffrey 18.1 H Plt Count 209 MPV 10.6 Immature Gran % (Auto) 0.400 Neut % (Auto) 64.3 Lymph % (Auto) 13.1 L [place] % (Auto) 15.1 H Eos % (Auto) 6.3 H Baso % (Auto) 0.8 Absolute Neuts (auto) 4.6 Absolute Lymphs (auto) 0.93 Nucleated RBC % 0 Sodium 142 Potassium 4.2 Chloride 114 H Carbon Dioxide 20.0 L BUN 109 H* Creatinine 6.00 H Estim Creat Clear Calc 13.60 Est GFR (MDRD) Af Amer 12 L Est GFR (MDRD) Non-Af 10 L BUN/Creatinine Ratio 18.2 Glucose 109 H Calcium 8.4 L Phosphorus 3.3 Magnesium 1.2 L Albumin 2.7 L POC Glucose 01/28/21 11:07 WBC RBC Hgb Hct MCV MCH MCHC RDW Std Deviation RDW Coeff of Jeffrey Plt Count MPV Immature Gran % (Auto) Neut % (Auto) Lymph % (Auto) [place] % (Auto) Eos % (Auto) Baso % (Auto) Absolute Neuts (auto) Absolute Lymphs (auto) Nucleated RBC % Sodium Potassium Chloride Carbon Dioxide BUN Creatinine Estim Creat Clear Calc Est GFR (MDRD) Af Amer Est GFR (MDRD) Non-Af BUN/Creatinine Ratio Glucose Calcium Phosphorus Magnesium Albumin POC Glucose 155 H Microbiology: Microbiology 01/27/21 15:45 Stool Occult Blood (CARITO) - Final Stool Microbiology 01/27/21 15:45 Stool Stool Occult Blood (CARITO) - Final D/C Instructions Discharge Diet: No restrictions Please Follow Up With: Omaira Chavez DO When: 02/05/2021 @ 1:00pm. Meaningful Use Info Meaningful Use Diagnoses (Choose all that apply): None applicable Discharge Plan Admission Admit Date/Time: 01/24/21 17:33 Primary Reason for Your Visit: Abnormal labs in the setting of acute kidney injury. Attending Provider: Donna Haile Primary Care Provider: Juany Wylie Consulting Providers: Omaira Chavez Instructions Additional Instructions / Restrictions: Patient Problems: Altered Health Status related to Hospitalization Patient Goals: *Optimal Level of Health *Keep Appointments *Medication Compliance *Remain Safefollow low K diet follow up with Dr Chavez on 02/05/21 at 1pm. Renal profile, CBC in 1 week Discharge Orders/Prescriptions Prescriptions: Continued tamsulosin 0.4 mg capsule 0.4 mg PO DAILY RF: 0 carvedilol 25 MG tablet 37.5 tab PO BID RF: 0 allopurinol 300 MG tablet 150 mg PO DAILY RF: 0 linagliptin 5 MG tablet 5 mg PO DAILY RF: 0 latanoprost 1 DROP bottle 1 drp EACH EYE DAILY RF: 0 ammonium lactate 226 GM lotion 1 applicatio TP DAILY PRN PRN (Reason: IRRITATION) RF: 0 amlodipine 10 mg tablet 10 mg PO DAILY RF: 0 Held lisinopril 5 mg tablet 5 mg PO DAILY RF: 0 Hold Instructions: hold until follow up in office Referrals / Follow Up: Omaira Chavez DO [STAFF PHYSICIAN] - 02/05/21 1:00 pm (At your scheduled appointment on 02/05/2021 @ 1:00pm. ) Juany Wylie MD [Primary Care Provider] - 02/01/21 8:40 am (Appointment is with Dr. Bell) Disposition Disposition (needs filled in before D/C Order can be placed): Home, self care Documented by User: Dr. Donna Haile MD 01/28/21 16:19 Providers Date of Admission: 01/24/21 Reason For Visit: CHANTALE Medications at Discharge Home Medications allopurinol 150 mg PO DAILY 01/27/16 carvedilol 37.5 tab PO BID 01/27/16 linagliptin 5 mg PO DAILY 08/05/17 ammonium lactate 1 applicatio TP DAILY PRN PRN 12/23/18 latanoprost 1 drp EACH EYE DAILY 12/23/18 tamsulosin 0.4 mg capsule 0.4 mg PO DAILY 06/21/19 amlodipine 10 mg PO DAILY 01/24/21 lisinopril 5 mg PO DAILY 01/24/21 ABG / Lab / Microbiology Data Result Diagrams: 01/28/21 06:35 01/28/21 06:35 Discharge Plan Admission Admit Date/Time: 01/24/21 17:33 Primary Reason for Your Visit: Abnormal labs in the setting of acute kidney injury. Attending Provider: Donna Haile Primary Care Provider: Juany Wylie Consulting Providers: Omaira Chavez Instructions Additional Instructions / Restrictions: Patient Problems: Altered Health Status related to Hospitalization Patient Goals: *Optimal Level of Health *Keep Appointments *Medication Compliance *Remain Safefollow low K diet follow up with Dr Chavez on 02/05/21 at 1pm. Renal profile, CBC in 1 week Discharge Orders/Prescriptions Prescriptions: Continued tamsulosin 0.4 mg capsule 0.4 mg PO DAILY RF: 0 carvedilol 25 MG tablet 37.5 tab PO BID RF: 0 allopurinol 300 MG tablet 150 mg PO DAILY RF: 0 linagliptin 5 MG tablet 5 mg PO DAILY RF: 0 latanoprost 1 DROP bottle 1 drp EACH EYE DAILY RF: 0 ammonium lactate 226 GM lotion 1 applicatio TP DAILY PRN PRN (Reason: IRRITATION) RF: 0 amlodipine 10 mg tablet 10 mg PO DAILY RF: 0 Held lisinopril 5 mg tablet 5 mg PO DAILY RF: 0 Hold Instructions: hold until follow up in office Referrals / Follow Up: Omaira Chavez DO [STAFF PHYSICIAN] - 02/05/21 1:00 pm (At your scheduled appointment on 02/05/2021 @ 1:00pm. ) Juany Wylie MD [Primary Care Provider] - 02/01/21 8:40 am (Appointment is with Dr. Bell) Disposition Disposition (needs filled in before D/C Order can be placed): Home, self care Charges/Coding Addendum Addendum: Patient seen by Juan Solomon PA-C under my supervision Patient is a 60-year-old male with an extensive past medical history as outlined was admitted on account of abnormal labs done on outpatient basis with potassium being 6.4 and creatinine of 8.45. Last known creatinine was 3.32 with potassium of 4.3. He was admitted to be managed for CHANTALE on CKD and hyperkalemia. He was given sodium Kayexalate and hydrated with IV fluids. Creatinine trended down gradually to 6 and patient was having adequate urine output. Hyperkalemia resolved and potassium was 4. Patient stay was also complicated by acute on chronic anemia with hemoglobin of 8.5 with his baseline being around 12. Stool for occult blood was negative. This was thought to be likely due to chronic disease of kidney failure. Patient remained stable and was discharged on 01/28/2021 follow-up with nephrology and PCP on outpatient basis. Patient seen and examined prior to discharge. He had no complaints and felt well. He was making good urine output. Review of symptoms otherwise negative. Labs and vitals reviewed. Medication reviewed and reconciled. O/E: Const alert, oriented x3 and no apparent distress HEENT normocephalic, head/scalp atraumatic and hearing grossly normal bilaterally Eyes PERRL and EOMs intact bilaterally Neck no lymphadenopathy, supple and no JVD Resp normal respiratory effort, no retractions, no use of accessory muscles and clear to auscultation bilaterally Cardio regular rate, regular rhythm, no murmurs and no JVD GI normal to inspection, nondistended, normoactive bowel sounds and soft to palpation Extremity normal to inspection Skin no rashes or lesions noted and no wounds Neuro CN's II-XII intact bilaterally Psych affect normal Plan is for discharge home today. Rest as per Juan Solomon PA-C's note which I reviewed and endorsed. Visit Charges Inpatient E&M: 52594 Disch Hosp
--- NOTE | 2021-01-29 10:25 | CASEMGMT ---
[facility] faxed d/c instructions to Adina Farr. 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 Giselle SCHMITT
--- NOTE | 2021-01-29 14:49 | NURSING ---
KERVIN DC F/u Call: DC Date: 01/28/21 DC Diagnosis: (1) Acute renal failure (2) CKD stage 4 due to type 2 diabetes mellitus (3) Acute hyperkalemia (4) Essential (primary) hypertension (5) Secondary hyperparathyroidism (of renal origin) (6) Anemia due to stage 4 chronic kidney disease (7) Metabolic acidosis DC Disposition: Home Lace/Strata: 07/19 Referrals / Follow Up: Omaira Chavez DO [STAFF PHYSICIAN] - 02/05/21 1:00 pm (At your scheduled appointment on 02/05/2021 @ 1:00pm. ) Juany Wylie MD [Primary Care Provider] - 02/01/21 8:40 am (Appointment is with Dr. Bell) Called patient home number listed in demographics. Immediately directed to VM and VM did not identify correct patient, therefore no VM was left. KERVIN Morales
== END 2021-01-28 17:23 | disposition home or self-care (01) | DRG 469 ==
LOC: ED 16:17 → PCU 18:24
PROVIDERS: Hospitalist; Internal Medicine; Internal Medicine Nephrology; Physician Assistant; Emergency Provider Emergency Medicine; PCP Internal Medicine; Visit Provider Student in an Organized Health Care Education/Training Program
DX: N17.0 Acute kidney failure with tubular necrosis (principal); N17.9 Acute kidney failure, unspecified; E87.5 Hyperkalemia; E87.2 Acidosis; I13.0 Hypertensive heart and chronic kidney disease with heart failure and stage 1 through stage 4 chronic kidney disease, or unspecified chronic kidney disease; I50.32 Chronic diastolic (congestive) heart failure; E11.22 Type 2 diabetes mellitus with diabetic chronic kidney disease; N18.4 Chronic kidney disease, stage 4 (severe); D63.1 Anemia in chronic kidney disease; D50.9 Iron deficiency anemia, unspecified; E11.621 Type 2 diabetes mellitus with foot ulcer; L97.529 Non-pressure chronic ulcer of other part of left foot with unspecified severity; I42.8 Other cardiomyopathies; N25.81 Secondary hyperparathyroidism of renal origin; E78.5 Hyperlipidemia, unspecified; M10.9 Gout, unspecified; M21.371 Foot drop, right foot; R29.6 Repeated falls; G47.33 Obstructive sleep apnea (adult) (pediatric); E66.01 Morbid (severe) obesity due to excess calories; Z68.41 Body mass index [BMI] 40.0-44.9, adult; Z79.84 Long term (current) use of oral hypoglycemic drugs; Z79.899 Other long term (current) drug therapy; Z95.810 Presence of automatic (implantable) cardiac defibrillator
CPT/HCPCS: 36415; 71045; 80048; 80069; 81001; 82274; 82728; 82962; 83036; 83540; 83735; 83970; 85025; 85027; 87040; 93005; 97802; 99285; J7030; J7050; A4216; J0610; J2916

== ENCOUNTER → 2021-02-12 10:44 | Outpatient (CLI) | payer MEDICAID, SELFPAY ==
[2021-01-24 16:40] VITALS: BMI 44.2
--- NOTE | 2021-02-12 10:49 | VDUE_ITS ---
Reason For Study: CKD Stage 4 Right Arm Left Arm Right Cephalic Vein at the wrist measures Left Cephalic Vein at the wrist measures 0.22 x 0.22 cm. 0.27 x 0.31 cm. Right Cephalic Vein in the forearm measures Left Cephalic Vein in the forearm measures 0.26 x 0.26 cm. 0.20 x 0.21 cm. Right Cephalic Vein below antecub measures Left Cephalic Vein below antecub measures 0.26 x 0.25 cm. 0.24 x 0.27 cm. Right Cephalic Vein above antecub measures Left Cephalic Vein above antecub measures 0.13 x 0.13 cm. 0.13 x 0.15 cm. Right Cephalic Vein mid bicep measures 0.09 Left Cephalic Vein at mid bicep measures x 0.11 cm. 0.14 x 0.13 cm. Right Cephalic Vein at the shoulder measures Left Cephalic Vein at the shoulder measures 0.09 x 0.11 cm. 0.16 x 0.18 cm. Right Basilic Vein at the origin measures Basilic vein at origin measures 0.33 x 0.31 0.29 x 0.28 cm. cm. Right Basilic Vein mid bicep measures 0.23 x Basilic vein at bicep measures 0.26 x 0.23 0.26 cm. cm. Right Basilic Vein above antecub measures Basilic vein above antecub measures 0.18 x 0.19 x 0.20 cm. 0.18 cm. Right Brachial Artery measures 0.47 x 0.47 Left Brachial Artery measures 0.43 x 0.43 cm cm with velocity of 80.3 cm/sec. with a velocity of 97.9 cm/sec. Right Radial Artery measures 0.21 x 0.20 cm Left Radial Artery measures 0.18 x 0.17 cm with a velocity of 68.6 cm/sec. with a velocity of 63.1 cm/sec. VL/Saphenous Vein Mapping, Bilat Interpretation Summary Patent and compressible bilateral upper extremity cephalic and basilic veins wi th dimensions as noted. Borderline right radial artery with small left radial artery. Adequate diameter and flow bilateral brachial arteries Ordering Physician: Omaira Chavez Referring Physician: Juany Wylie M.D. Performed By: Megha Velazquez RVT and Student ?
== END ==
PROVIDERS: PCP Internal Medicine; Referring Provider Internal Medicine Nephrology; Visit Provider Internal Medicine Nephrology
DX: Z01.818 Encounter for other preprocedural examination (principal); N18.4 Chronic kidney disease, stage 4 (severe)
CPT/HCPCS: 93970

== ENCOUNTER → 2021-02-27 11:41 | Outpatient (CLI) | payer MEDICAID, SELFPAY ==
[2021-01-24 16:40] VITALS: BMI 44.2
[2021-02-27 10:35] VITALS: BMI 43.0
[2021-02-27 12:40] LABS: Hematocrit 33.6 % (40-54); Mean Corp Hgb Conc 29.8 g/dL (32-36); Mean Corpuscular Hgb 23.4 pg (27.0-32.0); Mean Corpuscular Volume 78.5 fL (80-94); Mean Platelet Vol. 10.1 fl (6.2-12.0); Platelet Count 294 K/mm3 (150-450); RBC Distribution Width CV 19.5 % (11.6-14.6); RBC Distribution Width SD 54.5 fl (35.1-43.9); Red Blood Count 4.28 M/mm3 (4.6-6.2); White Blood Count 11.2 K/mm3 (4.4-11.0)
[2021-02-27 13:29] LABS: Albumin, Serum 3.1 g/dL (3.2-5.0); BUN 114 mg/dL (7-18); Calcium,Total 8.9 mg/dL (8.5-10.1); Chloride 110 mmol/L (98-107); Creatinine, Serum 6.71 mg/dL (0.70-1.30); EST Glomerular Filtration Rate 9 mL/min (>60); Est Glom Filt Rate - Afr Amer 11 mL/min (>60); Ferritin 445 ng/mL (26-388); Glucose 160 mg/dL (74-106); Iron 22 ug/dL (65-175); Iron Binding Capacity,Total 197 ug/dL (250-450); Potassium 4.9 mmol/L (3.5-5.1); Sodium Level 138 mmol/L (136-145)
[2021-02-27 13:30] LABS: PTHIN 273.3 pg/mL (18.4-80.1)
== END ==
PROVIDERS: PCP Internal Medicine; Referring Provider Internal Medicine Nephrology; Visit Provider Internal Medicine Nephrology
DX: E11.22 Type 2 diabetes mellitus with diabetic chronic kidney disease (principal); N18.4 Chronic kidney disease, stage 4 (severe); N25.81 Secondary hyperparathyroidism of renal origin; D64.9 Anemia, unspecified
CPT/HCPCS: 36415; 80069; 82728; 83540; 83550; 83970; 85027

== ENCOUNTER 2021-03-17 23:49 | Inpatient (IN) | payer MEDICAID, SELFPAY ==
[2021-02-27 10:35] VITALS: BMI 43.0
[2021-03-17 23:50] VITALS: BP 112/80; PULSE 95; RESP 18; TEMP 35.6; O2SAT 98; BMI 39.9
[2021-03-18] VITALS (18 sets, daily range): BP systolic 100–135; BP diastolic 66–100; PULSE 74–110; RESP 15–18; TEMP 36.1–37; O2SAT 94–100; BMI 39.8
--- NOTE | 2021-03-18 00:51 | EDS_ITS ---
HPI History of Present Illness Chief Complaint: Nausea/Vomiting Informant: patient Onset/Context/Timing Onset: Today Context: Gradual Onset Timing: Continuous Location: Lower chest Worsened by: Coughing Relieved by: Nothing Narrative Narrative: Patient presents with nausea and vomiting that began today. Patient states he is unable to keep anything down. Patient states his emesis is just stomach contents. Patient denies any coffee-ground emesis or hematemesis. Patient denies any diarrhea, melena, or hematochezia. Patient denies any dysuria or hematuria. Patient states his vomiting is worse with coughing. Patient states he gets some aching in his chest with coughing and vomiting. [facility] Medical History Benign prostatic hyperplasia Chronic diastolic (congestive) heart failure Chronic kidney disease, stage 4 (severe) CKD (chronic kidney disease), stage III Diabetes mellitus, type II Essential (primary) hypertension Falls frequently HLD (hyperlipidemia) Hyperosmolar non-ketotic state in patient with type 2 diabetes mellitus Implantable cardioverter-defibrillator (ICD) in situ Iron deficiency anemia Left bundle branch block (LBBB) Mitral valve regurgitation Morbid obesity Non-ischemic cardiomyopathy Nonsustained ventricular tachycardia RAQUEL (obstructive sleep apnea) Primary cardiomyopathy Right foot drop Venous ulcer of left lower extremity without varicose veins Home Medications allopurinol 150 mg PO DAILY 01/27/16 [History Last Taken 01/24/21] linagliptin 5 mg PO DAILY 08/05/17 [History Last Taken 01/24/21] ammonium lactate 1 applicatio TP DAILY PRN PRN 12/23/18 [History Last Taken 01/24/21] latanoprost 1 drp EACH EYE DAILY 12/23/18 [History Last Taken 01/23/21] tamsulosin 0.4 mg capsule 0.4 mg PO DAILY 06/21/19 [History Last Taken 01/24/21] amlodipine 10 mg PO DAILY 01/24/21 [History Last Taken 01/24/21] ferrous sulfate 325 mg PO BID #14 tab 01/28/21 [Rx Last Taken Unknown] carvedilol 25 mg tablet 37.5 mg PO BID tab 02/27/21 [History Last Taken Unknown] Allergy/AdvReac Type Severity Reaction Status Date / Time No Known Allergies Allergy Verified 03/17/21 23:50 Family History (Updated 03/04/21 @ 15:17 by Jaycee Connelly) Father Hypertension Heart disease Diabetes Mother Diabetes Chronic kidney disease Hypertension Anemia Surgical History H/O skin graft Social History Smoking Status: Never smoker alcohol intake: never substance use type: does not use caffeine: Yes ROS ROS ED Constitutional Constitutional ED: Denies chills or fever(s) Eyes Eyes: Denies blurry vision or change in vision ENT ENT ED: Denies rhinorrhea or sore throat Cardiovascular Cardiovascular: Denies chest pain or palpitations Respiratory/Chest Respiratory/Chest: Denies cough or dyspnea Gastrointestinal Gastrointestinal: Reports abdominal pain, nausea and vomiting; Denies diarrhea or melena Genitourinary Genitourinary ED: Denies dysuria or hematuria Musculoskeletal Musculoskeletal: Denies back pain or neck pain Integumentary Denies abscess or rash Neurologic Neurologic: Denies headache(s) or weakness Allergic/Immunologic Allergic/Immunologic ED: Denies mouth swelling or urticaria EXAM Physical Exam Const Vital Signs: 03/17/21 23:50 03/18/21 02:59 Temperature 96.1 F L 97.6 F L Temperature Source Temporal Temporal Pulse Rate 95 74 Respiratory Rate 18 15 Blood Pressure 112/80 122/79 H Blood Pressure Mean 90 93 Pulse Ox 98 97 Oxygen Delivery Method Room Air Room Air Positive well nourished, well developed, obese and unkempt General Appearance ED: unkempt and well developed Nutritional Appearance: obese HEENT Reports moist mucous membranes Neck supple and no JVD Resp normal respiratory effort and clear to auscultation bilaterally Cardio regular rate and regular rhythm GI normal to inspection, nondistended, normoactive bowel sounds Palpation: soft and tender epigastric, LLQ, RLQ, LUQ, RUQ, periumbilical and suprapubic; Negative for guarding or rebound tenderness present Neuro oriented x3, CN's II-XII intact bilaterally and no sensory deficits noted Sensorium / Orientation: alert Motor Exam: strength 5/5 throughout Psych mental status grossly normal Appearance: unkempt MDM MDM MDM Narrative Medical decision making narrative: EKG was obtained. On my interpretation, it showed a paced rhythm with a rate of 92. There is a left bundle branch block pattern noted. There are no acute ST or T wave changes noted. QRS interval was 174. QTc interval was 531, axis was 254. This was unchanged compared to previous EKG. CT scan of the abdomen pelvis was obtained. There is bilateral hydronephrosis and hydroureter. There are small right distal ureteral calculi. There is a large staghorn calculus in the right kidney. There is a questionable posterior urinary bladder wall mass. There are no other acute abnormalities noted. This was interpreted by the radiologist and reviewed by myself. CBC shows a leukocytosis of 15.5. Comprehensive metabolic profile showed an elevated creatinine of 13.1 and a BUN of 187. These are increased compared to previous results. Potassium was 6.6. Chloride was 110. Lipase was elevated at 1405. Patient was given calcium gluconate, insulin, and dextrose. Case was discussed with the hospitalist. She also recommended giving Kayexalate. This was ordered. Patient will be admitted to the hospital. Patient understood and was agreeable with the plan. All questions were answered. Lab Data Attestation: I reviewed the patient's lab results. Labs: Laboratory Results - last 24 hr 03/18/21 03/18/21 03/18/21 01:13 01:13 02:00 WBC 15.5 H RBC 5.00 Hgb 11.8 L Hct 39.5 L MCV 79.0 L MCH 23.6 L MCHC 29.9 L RDW Std Deviation 57.3 H RDW Coeff of Jeffrey 20.3 H Plt Count 228 MPV 10.4 Immature Gran % (Auto) 0.900 Neut % (Auto) 88.6 H Lymph % (Auto) 4.6 L Newton % (Auto) 5.7 Eos % (Auto) 0.1 Baso % (Auto) 0.1 Absolute Neuts (auto) 13.7 H Absolute Lymphs (auto) 0.71 L Nucleated RBC % 0 Sodium Cancelled 135 L Potassium Cancelled 6.6 H* Chloride Cancelled 110 H Carbon Dioxide Cancelled 10.0 L Anion Gap Cancelled 15 BUN Cancelled 187 H* Creatinine Cancelled 13.10 H* Estim Creat Clear Calc Cancelled 6.23 Est GFR (MDRD) Af Amer Cancelled 5 L Est GFR (MDRD) Non-Af Cancelled 4 L BUN/Creatinine Ratio Cancelled 14.3 Glucose Cancelled 155 H Calcium Cancelled 9.8 Total Bilirubin Cancelled 0.40 AST Cancelled 12 L ALT Cancelled 12 L Alkaline Phosphatase Cancelled 98 Total Protein Cancelled 8.9 H Albumin Cancelled 3.3 Globulin Cancelled 5.6 H Albumin/Globulin Ratio Cancelled 0.6 L Lipase Cancelled 1405 H Radiography Diagnostic Testing: Radiology Impression Abdomen/Pelvis CT 03/18/21 00:53 IMPRESSION: There is significant hydronephrosis bilaterally with some thinning of the renal cortices suggestive of atrophy, left more than right raising the concern of chronic hydronephrosis. There is a very large right-sided staghorn calculus as described above. In addition there are several small stones in the distal right ureter. There is no distinct stone along the left ureter although there is bilateral hydroureter. Cannot exclude posterior urinary bladder mass. Recommend follow-up with urological consultation and cystoscopy along with retrograde pyelogram if indicated. Electronically Signed: Nevin Campbell MD at 3:37 EDT , Service support , EKG Initial EKG: Attestation: I personally reviewed and interpreted this EKG as follows: Interpretation: No Acute Injury Pattern, Paced (92) and LBBB Prior EKG tracings: available for review Prior: Unchanged (01/25/2021) Discharge Plan Triage Chief Complaint: Nausea/Vomiting ED Provider: Chevy Silverio Dx/Rx/DC Orders Clinical Impression: Acute pancreatitis, CHANTALE (acute kidney injury), Acute hyperkalemia Prescriptions: No Action tamsulosin 0.4 mg capsule 0.4 mg PO DAILY RF: 0 allopurinol 300 MG tablet 150 mg PO DAILY RF: 0 carvedilol 25 mg tablet 37.5 mg PO BID RF: 0 linagliptin 5 MG tablet 5 mg PO DAILY RF: 0 latanoprost 1 DROP bottle 1 drp EACH EYE DAILY RF: 0 ammonium lactate 226 GM lotion 1 applicatio TP DAILY PRN PRN (Reason: IRRITATION) RF: 0 amlodipine 10 mg tablet 10 mg PO DAILY RF: 0 ferrous sulfate 325 mg (65 mg iron) tablet 325 mg PO BID Qty: 14 RF: 0 Primary Care Provider: Juany Wylie Referrals: Juany Wylie MD [Primary Care Provider] - Disposition Disposition: Acute Care Hospital [facility]
--- NOTE | 2021-03-18 00:53 | CT_ITS ---
STUDY: CT ABDOMEN AND PELVIS WITHOUT CONTRAST REASON FOR EXAM: Male, 60 years old. Abdominal pain RADIATION DOSAGE (If Supplied By Facility): CTDIvol = ( 16.82 ) mGy, DLP = ( 1388.56 ) mGycm TECHNIQUE: Transaxial images were obtained from the dome of the diaphragm to the symphysis pubis without oral contrast, and without intravenous contrast. Sagittal and coronal images were reconstructed. Individualized dose optimization techniques were used for this CT. COMPARISON: None. FINDINGS: Mild bilateral posterior subpleural atelectasis, remainder of the lung bases are clear. Normal cardiac size with pacemaker leads in place. Normal liver. Normal gallbladder and extrahepatic biliary system. Normal spleen. Mild atrophy otherwise normal pancreas. Normal bilateral adrenal glands. Atrophy of the right renal cortex with large staghorn calculi occupying a significant portion of the renal pelvis branching into several calyces along the upper middle and lower pole of the right kidney. There is mild right perinephric stranding. There is distention of the right ureter. There is evidence of at least 2 distal ureteral stones just above the UV junction measuring 7 and 4 mm in size. There is significant left-sided hydronephrosis with marked thinning of the left renal cortex suggestive of chronic hydronephrosis. The left ureter is distended to the level of the left UP junction with no radiopaque stone along the trajectory of the left ureter. There is a large stone within the upper pole of the left kidney occupying a dilated left upper pole calyx and measuring at least 3.2 cm in size. There is a left upper renal pole cystic structure with peripheral calcification. There is mild bilateral perinephric stranding. There is thickening of the wall of the distal esophagus. Otherwise unremarkable stomach. No hiatal hernia. Normal small intestine. Normal colon. The appendix is visualized and appears normal. Normal abdominal aorta. Normal inferior vena cava. Normal retroperitoneum. There is questionable high density along the posterior aspect of the urinary bladder which could represent artifact versus blood clot, cannot exclude a mass. Normal abdominal wall. Normal osseous structures. CT/Abdomen/Pelvis without Cont IMPRESSION: There is significant hydronephrosis bilaterally with some thinning of the renal cortices suggestive of atrophy, left more than right raising the concern of chronic hydronephrosis. There is a very large right-sided staghorn calculus as described above. In addition there are several small stones in the distal right ureter. There is no distinct stone along the left ureter although there is bilateral hydroureter. Cannot exclude posterior urinary bladder mass. Recommend follow-up with urological consultation and cystoscopy along with retrograde pyelogram if indicated. Electronically Signed: Nevin Campbell MD at 3:37 EDT , Service support ,
[2021-03-18] MEDS: Ondansetron 4 MG/2 ML Vial IV ×2 (01:01→04:17)
[2021-03-18] MEDS: Morphine 4 MG/ML Syringe IV (01:01)
[2021-03-18] MEDS: 0.9% Normal Saline 1,000 ML 1000 ML IV (01:01)
[2021-03-18 01:22] LABS: Absolute Lymphocyte Count 0.71 X10^3/uL (0.83-4.51); Absolute Neutrophil Count 13.7 X10^3/uL (2.0-7.7); Basophil# 0.02 X10^3/uL; Basophil% 0.1 % (0-1); Eosinophil# 0.01 X10^3/uL; Eosinophils% 0.1 % (0-5); Hematocrit 39.5 % (40-54); Hemoglobin 11.8 g/dL (13.0-16.5); Lymphocyte # 0.71 X10^3/ul (0.83-4.51); Lymphocyte % 4.6 % (19-41); Mean Corp Hgb Conc 29.9 g/dL (32-36); Mean Corpuscular Hgb 23.6 pg (27.0-32.0); Mean Platelet Vol. 10.4 fl (6.2-12.0); Monocyte# 0.88 X10^3/uL; Monocyte% 5.7 % (0-10); NRBC Flagged by Analyzer 0 % (0-5); Neutrophil # 13.73 X10^3/uL (2.7-7.7); Neutrophil % 88.6 % (47-70); POSITIVE MORPHOLOGY YES; Platelet Count 228 K/mm3 (150-450); RBC Distribution Width CV 20.3 % (11.6-14.6); RBC Distribution Width SD 57.3 fl (35.1-43.9); White Blood Count 15.5 K/mm3 (4.4-11.0)
[2021-03-18 01:23] LABS: Differential Indicated SCAN CRITERIA MET
[2021-03-18 02:34] LABS: ALB/GLOB Ratio 0.6 RATIO (0.9-2.4); AST(SGOT) 12 U/L (15-37); Alanine Aminotransfer ALT/SGPT 12 U/L (16-61); Albumin, Serum 3.3 g/dL (3.2-5.0); Alkaline Phosphatase 98 U/L (45-117); Anion Gap 15 (5-15); BUN 187 mg/dL (7-18); BUN/Creat Ratio 14.3 RATIO (10-20); Calcium,Total 9.8 mg/dL (8.5-10.1); Chloride 110 mmol/L (98-107); EST Glomerular Filtration Rate 4 mL/min (>60); Est Glom Filt Rate - Afr Amer 5 mL/min (>60); Estimated Creatinine Clearance 6.23 ml/min; Globulin 5.6 g/dL (2.2-4.2); Glucose 155 mg/dL (74-106); Lipase 1405 U/L (73-393); Potassium 6.6 mmol/L (3.5-5.1); Protein, Total 8.9 g/dL (6.4-8.2); Sodium Level 135 mmol/L (136-145)
--- NOTE | 2021-03-18 02:43 | EKG12_ITS ---
Test Reason : DYSRHYTHMIA Blood Pressure : / mmHG Vent. Rate : 092 BPM Atrial Rate : 092 BPM P-R Int : 000 ms QRS Dur : 174 ms QT Int : 430 ms P-R-T Axes : 088 254 066 degrees QTc Int : 531 ms Ventricular-paced rhythm Biventricular pacemaker detected Abnormal ECG Confirmed by ERNA ARCHER, ANDRES ([id number]), development editor VALENTINA DONOVAN ([id number]) on 03/21/2021 12:41:21 PM Referred By: JOHANNY Confirmed By:ANDRES UMANZOR MD
[2021-03-18] MEDS: Insulin Lispro 10 UNIT in Syringe 0 ML 6 UNIT IV (03:28)
[2021-03-18] MEDS: Dextrose 50%-Water 25 GM/50 ML DISP.SYRIN IV (03:28)
--- NOTE | 2021-03-18 03:38 | HP.PCM.HOS_ITS ---
HPI - General General Date of Admission: 03/18/21 Date of Service: 03/18/21 Chief Complaint: Abdominal pain, N/V HPI Narrative The patient is a 60 y/o M w/ PMHx: CKD stage IV, Chronic anemia/AOCD, Diabetes mellitus type II, Chronic diastolic CHF/Nonischemic cardiomyopathy, Hx NSVT s/p AICD placement, HTN, HLD, RAQUEL, Obesity who presents to the [facility] ED on 03/18/21 with history of intractable nausea and vomiting that began on day prior to ED day of presentation with concurrent nonproductive cough and chest aching with inability to keep anything down with mild epigastric discomfort ongoing, currently rated 2 out of 10 in severity, prompting eventual ED presentation. Work-up in the ED included T 96.1, heart rate 95, BP 112/80, respiratory rate 18, 98% on room air, CBC with WBC 15.5, hemoglobin 11.8, MCV 79, platelet 228 with left shift and lymphopenia, CMP with sodium 135, potassium 6.6, chloride 110, carbon oxide 10, BUN/creatinine 187/13.10, glucose 155, not marked appearing hepatic profile, lipase 1405, CT abdomen pelvis with significant hydronephrosis bilaterally with some thinning of the renal cortices suggestive of atrophy, left more than right likely secondary to chronic hydronephrosis, a very large right-sided staghorn calculus as well as small several stones in the distal right ureter with no distinct stone along the left ureter although there is bilateral hydroureter, reportedly cannot exclude posterior urinary bladder mass with recommended follow-up with urology. In the ED patient ministered normal saline, calcium gluconate, dextrose, insulin, morphine and Zofran. [facility] Medical History (Updated 03/18/21 @ 04:[address] Chevy Silverio, DO) Benign prostatic hyperplasia Chronic diastolic (congestive) heart failure Chronic kidney disease, stage 4 (severe) CKD (chronic kidney disease), stage III Diabetes mellitus, type II Essential (primary) hypertension Falls frequently HLD (hyperlipidemia) Hyperosmolar non-ketotic state in patient with type 2 diabetes mellitus Implantable cardioverter-defibrillator (ICD) in situ Iron deficiency anemia Left bundle branch block (LBBB) Mitral valve regurgitation Morbid obesity Non-ischemic cardiomyopathy Nonsustained ventricular tachycardia RAQUEL (obstructive sleep apnea) Primary cardiomyopathy Right foot drop Venous ulcer of left lower extremity without varicose veins Home Medications allopurinol 150 mg PO DAILY 01/27/16 [History Last Taken 01/24/21] linagliptin 5 mg PO DAILY 08/05/17 [History Last Taken 01/24/21] ammonium lactate 1 applicatio TP DAILY PRN PRN 12/23/18 [History Last Taken 01/24/21] latanoprost 1 drp EACH EYE DAILY 12/23/18 [History Last Taken 01/23/21] tamsulosin 0.4 mg capsule 0.4 mg PO DAILY 06/21/19 [History Last Taken 01/24/21] amlodipine 10 mg PO DAILY 01/24/21 [History Last Taken 01/24/21] ferrous sulfate 325 mg PO BID #14 tab 01/28/21 [Rx Last Taken Unknown] carvedilol 25 mg tablet 37.5 mg PO BID tab 02/27/21 [History Last Taken Unknown] Allergy/AdvReac Type Severity Reaction Status Date / Time No Known Allergies Allergy Verified 03/17/21 23:50 Family History (Updated 03/04/21 @ 15:17 by Jaycee Connelly) Father Hypertension Heart disease Diabetes Mother Diabetes Chronic kidney disease Hypertension Anemia Surgical History (Updated 03/18/21 @ 04:[address] Carole Roberts MD) H/O skin graft Hx of appendectomy Status post tonsillectomy and adenoidectomy Social History (Updated 03/18/21 @ 04:[address] Carole Roberts MD) household members: none Smoking Status: Never smoker alcohol intake: never substance use type: does not use caffeine: Yes ROS ROS Narrative Admission Review of Systems: CONSTITUTIONAL: No weight loss, fever, chills, + weakness or fatigue. HEENT: Eyes: No visual loss, blurred vision, double vision or yellow sclerae. Ears, Nose, Throat: No hearing loss, sneezing, congestion, runny nose or sore throat. SKIN: + Chronic LLE wound, s/p skin grafting. Head skin lesion. CARDIOVASCULAR: No chest pain, chest pressure or chest discomfort, palpitations, edema, orthopnea, syncopal events. RESPIRATORY: No shortness of breath, cough or sputum, wheezing, hemoptysis. GASTROINTESTINAL: + anorexia, nausea, vomiting, abdominal pain, No diarrhea, melena, BRBPR. GENITOURINARY: No dysuria, frequency, urgency or retention. NEUROLOGICAL: No headache, dizziness, syncope, paralysis, ataxia, numbness or tingling in the extremities, focal weakness, change in bowel or bladder control, seizure. MUSCULOSKELETAL: + muscle, back pain, joint pain or stiffness. HEMATOLOGIC: + anemia, bleeding or bruising. LYMPHATICS: No enlarged nodes. No history of splenectomy. PSYCHIATRIC: No history of depression or anxiety. ENDOCRINOLOGIC: No reports of sweating, cold or heat intolerance. No polyuria or polydipsia. ALLERGIES: No history of asthma, hives, eczema or rhinitis. Vital Signs Vital Signs Vital Signs: 03/17/21 23:50 03/18/21 02:59 Temperature 96.1 F L 97.6 F L Temperature Source Temporal Temporal Pulse Rate 95 74 Respiratory Rate 18 15 Blood Pressure 112/80 122/79 H Blood Pressure Mean 90 93 Pulse Ox 98 97 Oxygen Delivery Method Room Air Room Air Weight Weight: 285 lb 15.033 oz Body Mass Index (BMI) 39.9 Physical Exam Narrative Physical Examination: General: Awake, alert, oriented x 3 and cooperative, seated upright in the ED bed, fatigued and ill-appearing, holding emesis bag. Skin: Normal color, normal turgor, no icterus, no cyanosis except noted chronic left lower extremity medial lower [place] region status post grafting, dry blood, no erythema. HEENT: AT/NC, EOMI, PERRLA, dry MM, chronic lesion noted on the scalp right lateral, no obvious carotid bruits or JVD noted; however thickened neck makes examination difficult. Lungs: Diminished breath sounds, distant, greater bases, moderate effort, no rales, ronchi or wheezing. Heart: Regular rate and rhythm; no gallop, rub audible. Abdomen: Soft, obese, mild epigastric discomfort, no rebound or guarding, difficult to assess distention given habitus, mildly hyperactive bowel sounds, no obvious HSM but habitus makes examination difficult. Extremities: No cyanosis, clubbing, or edema. See skin Neurological: Patient awake, alert, oriented as noted, cognitive function intact; pupils equally reactive to light and accommodation, cranial nerves II- XII grossly normal, moving all 4 extremities, no focal deficits, strength moderately to severely global decrease secondary to acute presentation. Psychiatric: Affect appears fatigued, ill-appearing, no acute evidence of depressive or anxiety feelings. Results Lab / Micro Data Result Diagrams: 03/18/21 01:13 03/18/21 02:00 Labs: Laboratory Results - last 24 hr 03/18/21 01:13: WBC 15.5 H, RBC 5.00, Hgb 11.8 L, Hct 39.5 L, MCV 79.0 L, MCH 23.6 L, MCHC 29.9 L, RDW Std Deviation 57.3 H, RDW Coeff of Jeffrey 20.3 H, Plt Count 228, MPV 10.4, Immature Gran % (Auto) 0.900, Neut % (Auto) 88.6 H, Lymph % (Auto) 4.6 L, [place] % (Auto) 5.7, Eos % (Auto) 0.1, Baso % (Auto) 0.1, Absolute Neuts (auto) 13.7 H, Absolute Lymphs (auto) 0.71 L, Nucleated RBC % 0 03/18/21 01:13: Sodium Cancelled, Potassium Cancelled, Chloride Cancelled, Carbon Dioxide Cancelled, Anion Gap Cancelled, BUN Cancelled, Creatinine Cancelled, Estim Creat Clear Calc Cancelled, Est GFR (MDRD) Af Amer Cancelled, Est GFR (MDRD) Non-Af Cancelled, BUN/Creatinine Ratio Cancelled, Glucose Cancelled, Calcium Cancelled, Total Bilirubin Cancelled, AST Cancelled, ALT Cancelled, Alkaline Phosphatase Cancelled, Total Protein Cancelled, Albumin Cancelled, Globulin Cancelled, Albumin/Globulin Ratio Cancelled, Lipase Cancelled 03/18/21 02:00: Sodium 135 L, Potassium 6.6 H*, Chloride 110 H, Carbon Dioxide 10.0 L, Anion Gap 15, BUN 187 H*, Creatinine 13.10 H*, Estim Creat Clear Calc 6.23, Est GFR (MDRD) Af Amer 5 L, Est GFR (MDRD) Non-Af 4 L, BUN/Creatinine Ratio 14.3, Glucose 155 H, Calcium 9.8, Total Bilirubin 0.40, AST 12 L, ALT 12 L , Alkaline Phosphatase 98, Total Protein 8.9 H, Albumin 3.3, Globulin 5.6 H, Albumin/Globulin Ratio 0.6 L, Lipase 1405 H Radiology Impression Abdomen/Pelvis CT 03/18/21 00:53 IMPRESSION: There is significant hydronephrosis bilaterally with some thinning of the renal cortices suggestive of atrophy, left more than right raising the concern of chronic hydronephrosis. There is a very large right-sided staghorn calculus as described above. In addition there are several small stones in the distal right ureter. There is no distinct stone along the left ureter although there is bilateral hydroureter. Cannot exclude posterior urinary bladder mass. Recommend follow-up with urological consultation and cystoscopy along with retrograde pyelogram if indicated. Electronically Signed: Nevin Campbell MD at 3:37 EDT , Service support , Assessment & Plan Assessment/Plan (1) Acute pancreatitis: QUALIFIERS: Acute pancreatitis complication: unspecified Pancreatitis type: unspecified pancreatitis type Qualified Code(s): K85.90 - Acute pancreatitis without necrosis or infection, unspecified (2) CHANTALE (acute kidney injury): (3) Hydronephrosis concurrent with and due to calculi of kidney and ureter: (4) Hyperkalemia: PLAN: The patien tis a 60 y/o M w/ PMHx: CKD stage IV, Chronic anemia/AOCD, Diabetes mellitus type II, Chronic diastolic CHF/Nonischemic card iomyopathy, Hx NSVT s/p AICD placement, HTN, HLD, RAQUEL, Obesity who presents to the [facility] ED on 03/18/21 with history of intractable nausea and vomiting that began on day prior to ED day of presentation with concurrent nonproductive cough and chest aching with inability to keep anything down prompting eventual ED presentation. 1. Acute pancreatitis w/ abdominal pain, N/V: Will admit to Admission lipase 1405, LFTs not marked appearing, maintain on aggressive IVFs, NPO, IV PPI, IV/po pain control, trend lipase, CMP. Will obtain RUQ US although no marked findings on CT, FLP, further assess for EtOH consumption risk as etiology for pancreatitis. 2. CHANTALE on Chronic Kidney Disease Stage IV: Admission BUN/Cr /13.10, baseline renal function most recently 6-, last 02/27/2021 creatinine 6.71, will continue to aggressively hydrate cautiously monitoring for volume overload given underlying cardiac disease, repeat CMP in a.m., suspected prerenal etiology given significant GI losses, consult nephrology. Requested UFeNa. Patient with recent evaluation 02/22/2021 with general surgery, Dr. Moya for AVF initiation. Will consult Dr. Chavez with whom he has seen prior. 3. Incidentally noted bilateral hydronephrosis and hydroureter: CT abdomen pelvis with significant hydronephrosis bilaterally with some thinning of the renal cortices suggestive of atrophy, left more than right likely secondary to c hronic hydronephrosis, a very large right-sided staghorn calculus as well as small several stones in the distal right ureter with no distinct stone along the left ureter although there is bilateral hydroureter, reportedly cannot exclude posterior urinary bladder mass with recommended follow-up with urology. Noted prior renal US w/ BL nonobstructing renal calculi and multiple cysts, mild to moderate left hydronephrosis, potentially worsening. Will request consultation with Dr. Sow. 4. Hyperkalemia: Potassium 6.6, regimen administered in ED including normal saline, calcium gluconate, dextrose, insulin and also requested Kayexalate dosing, will repeat BMP upon transition to the floor, maintain on telemetry monitoring, nephrology as noted consult, complicated given patient underlying significant renal disease, CHANTALE on CKD stage IV as noted. 5. Leukocytosis, suspect reactive: Admission CBC with WBC 15.5 with left shift and lymphopenia, given ongoing intractable nausea and vomiting suspect significant dehydration, will continue to aggressively hydrate, treat #1, trend CBC. 6. Chronic diastolic CHF/Nonischemic cardiomyopathy: We will continue aspirin, Coreg, not on statin therapy, diuretic or STACY inhibitor/ARB likely secondary to renal disease. Cautiously monitored IV fluid administration. 12/24/2018 echocardiogram with EF 55%, mildly enlarged LA, compared to prior echocardiogram EF improved from 20% to 55%. 7. Hx NSVTP: s/p AICD placement, recent 03/15/2021 ICD assessment. 8. Diabetes mellitus type II: Hold oral home regimen, given presentation will be admitted n.p.o. status, maintain every 6 hour accu checks w/ ISS. 9. Hypertension: Continue home regimen including amlodipine, Coreg with hold parameters, PRN hydralazine. 10. Hyperlipidemia: Not on statin therapy, defer to outpatient. 11. BPH: We will continue patient on Flomax regimen. 12 chronic anemia, AOCD, iron deficiency anemia: Admission hemoglobin 11.8, previously 02/27/2021 hemoglobin 10, continue iron supplementation, trend CBC. 13. Obesity: Weight loss and lifestyle changes encouraged. 14. RAQUEL: Continue CPAP nightly if amenable. 15. DVT prophylaxis: SCDs, heparin. Charges/Coding Visit Charges Inpatient E&M: 44755 Init Hosp L3
--- NOTE | 2021-03-18 04:01 | US_ITS ---
STUDY: ABDOMINAL ULTRASOUND - RIGHT UPPER QUADRANT REASON FOR VISIT: Male, 60 years old. Pain. Evaluate for pancreatitis. TECHNIQUE: Ultrasound evaluation of the right upper quadrant was performed with real-time and static tuttle-scale imaging. TECHNICAL QUALITY: Significantly limited by body habitus, bowel gas and patient condition. COMPARISON: CT 03/18/21 FINDINGS: Liver: The liver measures 18.2 cm. There is normal echogenicity of the liver. The bile ducts are within normal limits. There is hepatic color flow. The direction of portal flow is hepatopetal. There is no demonstrated mass lesion. Gallbladder: Normal distended gallbladder. The gallbladder wall measures 3 mm. There is a negative sonographic Portillo''s sign. There is no pericholecystic fluid. There are no gallstones. Common Bile Duct (C.B.D.): The common bile duct measures 4 mm. Pancreas: There is nonvisualization of the pancreas. Right Kidney: The right kidney is hyperechoic. The right kidney measures 14.5 cm. There is thinning of the renal cortex. There are stones noted in the collecting system of the right kidney, measuring up to 1.9 cm. There is moderate right hydronephrosis. US/Gallbladder IMPRESSION: Right renal stones measuring up to 1.9 cm. Moderate right hydronephrosis. Hyperechoic right kidney with cortical thinning. This is consistent with medical renal disease. Pancreas not visualized. Normal sonographic appearance of the gallbladder. Electronically Signed: Lucio Rubin MD at 9:25 EDT Tel , Service support ,
[2021-03-18 04:20] LABS: Magnesium 2.1 mg/dL (1.6-2.6); Phosphorus 7.4 mg/dL (2.5-4.9)
--- NOTE | 2021-03-18 04:33 | ED.RN ---
CALLED [facility] TO CHECK THE STATUS OF A B[facility] ASSIGNMENT, PER CHIRS IN BED CONTROL, THEY DON'T HAVE A BED ASSIGNMENT AT THIS TIME. THEY ARE WAITING FOR THEIR VASCULAR DR TO CONTACT THEM.
[2021-03-18 04:35] LABS: BNP,B-Type NATRIURETIC PEPTIDE 19.7 pg/mL (0-100)
[2021-03-18] MEDS: Sodium Polystyrene Sulfonate 15 GM/60 ML UDC PO (05:09)
[2021-03-18] MEDS: 0.9% Saline Lock 10 ML Syringe IV (06:21)
[2021-03-18] MEDS: 0.9% Normal Saline 1,000 ML 500 ML IV (06:24)
[2021-03-18 06:37] LABS: Absolute Lymphocyte Count 0.84 X10^3/uL (0.83-4.51); Absolute Neutrophil Count 13.2 X10^3/uL (2.0-7.7); Basophil# 0.04 X10^3/uL; Basophil% 0.3 % (0-1); Eosinophil# 0.01 X10^3/uL; Eosinophils% 0.1 % (0-5); Hematocrit 39.2 % (40-54); Hemoglobin 11.6 g/dL (13.0-16.5); Lymphocyte # 0.84 X10^3/ul (0.83-4.51); Lymphocyte % 5.3 % (19-41); Mean Corp Hgb Conc 29.6 g/dL (32-36); Mean Corpuscular Hgb 23.3 pg (27.0-32.0); Mean Corpuscular Volume 78.9 fL (80-94); Mean Platelet Vol. 9.9 fl (6.2-12.0); Monocyte% 10.1 % (0-10); NRBC Flagged by Analyzer 0.1 % (0-5); Neutrophil # 13.23 X10^3/uL (2.7-7.7); Neutrophil % 83.3 % (47-70); POSITIVE DIFFERENTIAL YES; Platelet Count 183 K/mm3 (150-450); RBC Distribution Width CV 19.9 % (11.6-14.6); RBC Distribution Width SD 55.8 fl (35.1-43.9); Red Blood Count 4.97 M/mm3 (4.6-6.2); White Blood Count 15.9 K/mm3 (4.4-11.0)
[2021-03-18 06:38] LABS: Differential Indicated SCAN CRITERIA MET
[2021-03-18 06:50] LABS: Bedside Glucose 132 mg/dL (70-110)
--- NOTE | 2021-03-18 07:48 | CON.PCM.UR_ITS ---
Assessment & Plan Assessment/Plan (1) CHANTALE (acute kidney injury): (2) Acute renal failure: QUALIFIERS: Acute renal failure type: unspecified Qualified Code(s): N17.9 - Acute kidney failure, unspecified PLAN: 60-year-old male with severe elevation in creatinine I suspect the spike in that knee dialysis. There is no obstruction of the distal ureters patient is off the floor out to come back and ask him additional history to see if he has any history of radiation there is no obvious mass in the bladder outlet seen obstruction from a mass or tumor in the bladder. Appears to be reflux hydronephrosis and can have the nurses check a postvoid residual and place a catheter what the monitor urine output after the catheter was placed, possible if the creatinine does not improve with a Barnes catheter we may at the place stents will monitor to see what happens. HPI Consult Data Date of Consult: 03/18/21 HPI Narrative HPI Narrative: 60-year-old male who presented with severe renal dysfunction creatinine is very high he has a history of chronic kidney disease probably at this point he is approaching dialysis. He has two large staghorn calculus in each kidney but they are not obstructive I came to see the patient this morning and he was off the floor for some testing not sure how long they have been there.. I reviewed his CAT scan and he has bilateral hydronephrosis appears to be reflux hydronephrosis senses no obstruction of the distal ureter, recommend we check a postvoid residual and place a Barnes catheter and monitor his urine output. [facility] Medical History Benign prostatic hyperplasia Chronic diastolic (congestive) heart failure Chronic kidney disease, stage 4 (severe) CKD (chronic kidney disease), stage III Diabetes mellitus, type II Essential (primary) hypertension Falls frequently HLD (hyperlipidemia) Hyperosmolar non-ketotic state in patient with type 2 diabetes mellitus Implantable cardioverter-defibrillator (ICD) in situ Iron deficiency anemia Left bundle branch block (LBBB) Mitral valve regurgitation Morbid obesity Non-ischemic cardiomyopathy Nonsustained ventricular tachycardia RAQUEL (obstructive sleep apnea) Primary cardiomyopathy Right foot drop Venous ulcer of left lower extremity without varicose veins Home Medications allopurinol 150 mg PO DAILY 01/27/16 [History Last Taken 01/24/21] linagliptin 5 mg PO DAILY 08/05/17 [History Last Taken 01/24/21] ammonium lactate 1 applicatio TP DAILY PRN PRN 12/23/18 [History Last Taken 01/24/21] latanoprost 1 drp EACH EYE DAILY 12/23/18 [History Last Taken 01/23/21] tamsulosin 0.4 mg capsule 0.4 mg PO DAILY 06/21/19 [History Last Taken 01/24/21] amlodipine 10 mg PO DAILY 01/24/21 [History Last Taken 01/24/21] ferrous sulfate 325 mg PO BID #14 tab 01/28/21 [Rx Last Taken Unknown] carvedilol 25 mg tablet 37.5 mg PO BID tab 02/27/21 [History Last Taken Unknown] Allergy/AdvReac Type Severity Reaction Status Date / Time No Known Allergies Allergy Verified 03/17/21 23:50 Family History Father Hypertension Heart disease Diabetes Mother Diabetes Chronic kidney disease Hypertension Anemia Surgical History H/O skin graft Hx of appendectomy Status post tonsillectomy and adenoidectomy Social History household members: none Smoking Status: Never smoker alcohol intake: never substance use type: does not use caffeine: Yes Lab / Micro Data Result Diagrams: 03/18/21 05:52 03/18/21 02:00 Labs: Laboratory Results - last 24 hr 03/18/21 01:13: WBC 15.5 H, RBC 5.00, Hgb 11.8 L, Hct 39.5 L, MCV 79.0 L, MCH 23.6 L, MCHC 29.9 L, RDW Std Deviation 57.3 H, RDW Coeff of Jeffrey 20.3 H, Plt Count 228, MPV 10.4, Immature Gran % (Auto) 0.900, Neut % (Auto) 88.6 H, Lymph % (Auto) 4.6 L, [place] % (Auto) 5.7, Eos % (Auto) 0.1, Baso % (Auto) 0.1, Absolute Neuts (auto) 13.7 H, Absolute Lymphs (auto) 0.71 L, Nucleated RBC % 0 03/18/21 01:13: Sodium Cancelled, Potassium Cancelled, Chloride Cancelled, Carbon Dioxide Cancelled, Anion Gap Cancelled, BUN Cancelled, Creatinine Cancelled, Estim Creat Clear Calc Cancelled, Est GFR (MDRD) Af Amer Cancelled, Est GFR (MDRD) Non-Af Cancelled, BUN/Creatinine Ratio Cancelled, Glucose Cancelled, Calcium Cancelled, Total Bilirubin Cancelled, AST Cancelled, ALT Cancelled, Alkaline Phosphatase Cancelled, Total Protein Cancelled, Albumin Cancelled, Globulin Cancelled, Albumin/Globulin Ratio Cancelled, Lipase Cancelled 03/18/21 02:00: Sodium 135 L, Potassium 6.6 H*, Chloride 110 H, Carbon Dioxide 10.0 L, Anion Gap 15, BUN 187 H*, Creatinine 13.10 H*, Estim Creat Clear Calc 6.23, Est GFR (MDRD) Af Amer 5 L, Est GFR (MDRD) Non-Af 4 L, BUN/Creatinine Ratio 14.3, Glucose 155 H, Calcium 9.8, Total Bilirubin 0.40, AST 12 L, ALT 12 L , Alkaline Phosphatase 98, Total Protein 8.9 H, Albumin 3.3, Globulin 5.6 H, Albumin/Globulin Ratio 0.6 L, Lipase 1405 H 03/18/21 02:00: Phosphorus 7.4 H, Magnesium 2.1 03/18/21 02:00: B-Natriuretic Peptide 19.7 03/18/21 04:09: Ethyl Alcohol 4.0 03/18/21 05:52: WBC 15.9 H, RBC 4.97, Hgb 11.6 L, Hct 39.2 L, MCV 78.9 L, MCH 23.3 L, MCHC 29.6 L, RDW Std Deviation 55.8 H, RDW Coeff of Jeffrey 19.9 H, Plt Count 183, MPV 9.9, Immature Gran % (Auto) 0.900, Neut % (Auto) 83.3 H, Lymph % (Auto) 5.3 L, [place] % (Auto) 10.1 H, Eos % (Auto) 0.1, Baso % (Auto) 0.3, Absolute Neuts (auto) 13.2 H, Absolute Lymphs (auto) 0.84, Nucleated RBC % 0.1, Diff Path Review December03/18/21 06:37: POC Glucose 132 H Radiology Impression Abdomen/Pelvis CT 03/18/21 00:53 IMPRESSION: There is significant hydronephrosis bilaterally with some thinning of the renal cortices suggestive of atrophy, left more than right raising the concern of chronic hydronephrosis. There is a very large right-sided staghorn calculus as described above. In addition there are several small stones in the distal right ureter. There is no distinct stone along the left ureter although there is bilateral hydroureter. Cannot exclude posterior urinary bladder mass. Recommend follow-up with urological consultation and cystoscopy along with retrograde pyelogram if indicated. Electronically Signed: Nevin Campbell MD at 3:37 EDT , Service support ,
[2021-03-18 08:31] LABS: ALB/GLOB Ratio 0.7 RATIO (0.9-2.4); AST(SGOT) 19 U/L (15-37); Alanine Aminotransfer ALT/SGPT 10 U/L (16-61); Albumin, Serum 3.1 g/dL (3.2-5.0); Alkaline Phosphatase 92 U/L (45-117); Anion Gap 19 (5-15); BUN 179 mg/dL (7-18); Calcium,Total 9.9 mg/dL (8.5-10.1); Chloride 111 mmol/L (98-107); Cholesterol 118 mg/dL (200); EST Glomerular Filtration Rate 4 mL/min (>60); Est Glom Filt Rate - Afr Amer 5 mL/min (>60); Estimated Creatinine Clearance 6.37 ml/min; Globulin 4.2 g/dL (2.2-4.2); Glucose 170 mg/dL (74-106); High Density Lipoprotein 27 mg/dL; Lipase 1407 U/L (73-393); Potassium 6.3 mmol/L (3.5-5.1); Protein, Total 7.3 g/dL (6.4-8.2); Sodium Level 139 mmol/L (136-145); Triglycerides 141 mg/dL; Very Low Density Lipoprotein 28 mg/dL (5-40)
--- NOTE | 2021-03-18 11:45 | CASEMGMT ---
RN RIANA assessment: Face to Face with patient for initial transition planning/care coordination assessment. RN CM introduced self and role at [facility], pt voices understanding and consents to assessment. Pt is sitting up in bed in no distress on room air. Pt is A/Ox4 and answers all questions appropriately. Care providers, pharmacy, and demographics verified. Presentation: Nausea/vomiting that started today Admitting dx: Pancreatitis, CHANTALE on CKD, hyperkalemia PCP: Dejan Specialists: Shin, cardio; Scott, nephro; Griffin, surgeon Preferred Pharmacy: [facility] Insurance: [employer] Prescription Benefit: [employer] Living Will/HPOA: Pt has LW/HPOA and is aware that they are on file at [facility]. Pt's friend, Manuel More, is HPOA. LNOK: Manuel More, friend/HPOA Living Arrangements: Pt states lives alone in a home apartment with no steps and states no concerns at home. Pt states is independent w/ ADL's. Transportation: Pt states Manuel drives or takes taxi and states no transportation concerns. DME/HHC: Pt states has the following DME: walker, rollator, medical alert, shower chair, lift chair, and glucometer. Pt states no need for any further DME. Pt states no hx of HHC but has been to [facility]. Most likely, pt will need OP dialysis set up and pt is aware that the closest in-network OP dialysis center is [facility] in [place], voices understanding and pt aware that [facility] should be able to assist with transportation, voices understanding. Pt states has CM thru [employer], Adina Farr, and has [employer] and [employer] meals as well as aides T/ 9a-12p. Pt states no concerns with going home at time of discharge. Pt is on disability. Pt states does not smoke cigarettes or drink ETOH. Pt states no further concerns/needs. CM to follow for any further discharge planning/needs. Advised pt to ask for CM if any further questions/concerns/needs arise, voices understanding. Pt Goal: Home Plan: Home, pending OP dialysis set up. [facility]
[2021-03-18] MEDS: Sodium Bicarbonate 8.4% 50 ML Syringe 50 MEQ IV (11:52)
[2021-03-18] MEDS: Latanoprost 0.005% 1 Bottle 1 DRP EACH EYE (12:23)
--- NOTE | 2021-03-18 12:29 | CON.PCM_ITS ---
Assessment & Plan Assessment/Plan (1) Acute on chronic renal failure: QUALIFIERS: Acute renal failure type: unspecified Chronic kidney disease stage: stage 5, not on chronic dialysis Qualified Code(s): N17.9 - Acute kidney failure, unspecified; N18.5 - Chronic kidney disease, stage 5 PLAN: I have been consulted in conjunction with Dr. Shabazz. Dr. Shabazz will plan to perform a right possible left chest tunneled dialysis catheter placement. Procedure details, risks and benefits have been explained. Patient has had the opportunity to ask and have questions answered. Patient verbally understands and agrees with the plan. He is currently NPO. Plan to proceed with chest catheter placement today. Thank you for allowing us to participate in this patient's care. HPI Consult Data Date of Consult: 03/18/21 HPI Narrative HPI Narrative: JUVENCIO QUINTERO, is a 60 M who presents with intractable nausea and vomiting. Patient has chronic renal failure. He was recently rescheduled for arteriovenous fistula creation with Dr. Moya mid March. Patient follows with Dr. Chavez for nephrology. His last appointment with Dr. Chavez was last month on the . At that time, the patient states a tunneled chest catheter was discussed. Patient states he is still urinating. He denies myocardial infarction, stroke or blood clots. His try out person is Dr. Melissa. He has an ICD placed in 2010. He denies any pain. Paticathy's creatinine has increased from 6.7 on 02/27 to 12.8 today. FORMERLY [facility], [facility] Medical History (Updated 03/18/21 @ 12:42 by Yudy ROSE PAErnestoC) Acute on chronic renal failure Benign prostatic hyperplasia Chronic diastolic (congestive) heart failure Chronic kidney disease, stage 4 (severe) CKD (chronic kidney disease), stage III Diabetes mellitus, type II Essential (primary) hypertension Falls frequently HLD (hyperlipidemia) Hyperosmolar non-ketotic state in patient with type 2 diabetes mellitus Implantable cardioverter-defibrillator (ICD) in situ Iron deficiency anemia Left bundle branch block (LBBB) Mitral valve regurgitation Morbid obesity Non-ischemic cardiomyopathy Nonsustained ventricular tachycardia RAQUEL (obstructive sleep apnea) Primary cardiomyopathy Right foot drop Venous ulcer of left lower extremity without varicose veins Home Medications allopurinol 150 mg PO DAILY 01/27/16 [History Last Taken 01/24/21] linagliptin 5 mg PO DAILY 08/05/17 [History Last Taken 01/24/21] ammonium lactate 1 applicatio TP DAILY PRN PRN 12/23/18 [History Last Taken 01/24/21] latanoprost 1 drp EACH EYE DAILY 12/23/18 [History Last Taken 01/23/21] tamsulosin 0.4 mg capsule 0.4 mg PO DAILY 06/21/19 [History Last Taken 01/24/21] amlodipine 10 mg PO DAILY 01/24/21 [History Last Taken 01/24/21] ferrous sulfate 325 mg PO BID #14 tab 01/28/21 [Rx Last Taken Unknown] carvedilol 25 mg tablet 37.5 mg PO BID tab 02/27/21 [History Last Taken Unknow n] Allergy/AdvReac Type Severity Reaction Status Date / Time No Known Allergies Allergy Verified 03/17/21 23:50 Family History Father Hypertension Heart disease Diabetes Mother Diabetes Chronic kidney disease Hypertension Anemia Surgical History H/O skin graft Hx of appendectomy Status post tonsillectomy and adenoidectomy Social History household members: none Smoking Status: Never smoker alcohol intake: never substance use type: does not use caffeine: Yes ROS Constitutional Constitutional: Reports systems reviewed and no addt'l complaints, except as documented Eyes Eyes: Reports systems reviewed and no addt'l complaints, except as documented ENT HEENT: Reports systems reviewed and no addt'l complaints, except as documented Cardiovascular Cardiovascular: Reports systems reviewed and no addt'l complaints, except as documented Respiratory/Chest Respiratory/Chest: Reports systems reviewed and no addt'l complaints, except as documented Gastrointestinal Gastrointestinal: Reports systems reviewed and no addt'l complaints, except as documented Genitourinary Genitourinary: Reports systems reviewed and no addt'l complaints, except as documented Musculoskeletal Musculoskeletal: Reports systems reviewed and no addt'l complaints, except as documented Integumentary Integumentary: Reports systems reviewed and no addt'l complaints, except as documented Neurologic Neurologic: Reports systems reviewed and no addt'l complaints, except as documented Psychiatric Psychiatric: Reports systems reviewed and no addt'l complaints, except as documented Endocrine Endocrinology: Reports systems reviewed and no addt'l complaints, except as documented Hematologic/Lymphatic Hematologic/Lymphatic: Reports systems reviewed and no addt'l complaints, except as documented Allergic/Immunologic Allergic/Immunologic: Reports systems reviewed and no addt'l complaints, except as documented Physical Exam Const alert, oriented x3 and no apparent distress HEENT normocephalic Eyes PERRL and EOMs intact bilaterally Neck full ROM Lymph Lymphatic: no lymphadenopathy noted Chest inspection of chest normal Resp normal respiratory effort Cardio regular rate and regular rhythm GI normal to inspection, nondistended, normoactive bowel sounds Inspection: central obesity no CVA tenderness Back/Spine no CVA tenderness Extremity normal to inspection Skin no rashes or lesions noted Neuro oriented x3 and CN's II-XII intact bilaterally Psych mental status grossly normal Lab / Micro Data Result Diagrams: 03/18/21 05:52 03/18/21 05:52 Labs: Laboratory Results - last 24 hr 03/18/21 01:13: WBC 15.5 H, RBC 5.00, Hgb 11.8 L, Hct 39.5 L, MCV 79.0 L, MCH 23.6 L, MCHC 29.9 L, RDW Std Deviation 57.3 H, RDW Coeff of Jeffrey 20.3 H, Plt Count 228, MPV 10.4, Immature Gran % (Auto) 0.900, Neut % (Auto) 88.6 H, Lymph % (Auto) 4.6 L, [place] % (Auto) 5.7, Eos % (Auto) 0.1, Baso % (Auto) 0.1, Absolute Neuts (auto) 13.7 H, Absolute Lymphs (auto) 0.71 L, Nucleated RBC % 0 03/18/21 01:13: Sodium Cancelled, Potassium Cancelled, Chloride Cancelled, Carbon Dioxide Cancelled, Anion Gap Cancelled, BUN Cancelled, Creatinine Cancelled, Estim Creat Clear Calc Cancelled, Est GFR (MDRD) Af Amer Cancelled, Est GFR (MDRD) Non-Af Cancelled, BUN/Creatinine Ratio Cancelled, Glucose Cancelled, Calcium Cancelled, Total Bilirubin Cancelled, AST Cancelled, ALT Cancelled, Alkaline Phosphatase Cancelled, Total Protein Cancelled, Albumin Cancelled, Globulin Cancelled, Albumin/Globulin Ratio Cancelled, Lipase Cancelled 03/18/21 02:00: Sodium 135 L, Potassium 6.6 H*, Chloride 110 H, Carbon Dioxide 10.0 L, Anion Gap 15, BUN 187 H*, Creatinine 13.10 H*, Estim Creat Clear Calc 6.23, Est GFR (MDRD) Af Amer 5 L, Est GFR (MDRD) Non-Af 4 L, BUN/Creatinine Ratio 14.3, Glucose 155 H, Calcium 9.8, Total Bilirubin 0.40, AST 12 L, ALT 12 L , Alkaline Phosphatase 98, Total Protein 8.9 H, Albumin 3.3, Globulin 5.6 H, Albumin/Globulin Ratio 0.6 L, Lipase 1405 H 03/18/21 02:00: Phosphorus 7.4 H, Magnesium 2.1 03/18/21 02:00: B-Natriuretic Peptide 19.7 03/18/21 04:09: Ethyl Alcohol 4.0 03/18/21 05:52: WBC 15.9 H, RBC 4.97, Hgb 11.6 L, Hct 39.2 L, MCV 78.9 L, MCH 23.3 L, MCHC 29.6 L, RDW Std Deviation 55.8 H, RDW Coeff of Jeffrey 19.9 H, Plt Count 183, MPV 9.9, Immature Gran % (Auto) 0.900, Neut % (Auto) 83.3 H, Lymph % (Auto) 5.3 L, [place] % (Auto) 10.1 H, Eos % (Auto) 0.1, Baso % (Auto) 0.3, Absolute Neuts (auto) 13.2 H, Absolute Lymphs (auto) 0.84, Nucleated RBC % 0.1, Diff Path Review December03/18/21 05:52: Sodium 139, Potassium 6.3 H*, Chloride 111 H, Carbon Dioxide 9.0 L*, Anion Gap 19 H, BUN 179 H*, Creatinine 12.80 H*, Estim Creat Clear Calc 6.37, Est GFR (MDRD) Af Amer 5 L, Est GFR (MDRD) Non-Af 4 L, BUN/Creatinine Ratio 14.0, Glucose 170 H, Calcium 9.9, Total Bilirubin 0.40, AST 19, ALT 10 L, Alkaline Phosphatase 92, Total Protein 7.3, Albumin 3.1 L, Globulin 4.2, Albumin/Globulin Ratio 0.7 L, Triglycerides 141, Cholesterol 118, LDL Cholesterol 63, VLDL Cholesterol 28, HDL Cholesterol 27 L, Lipase 1407 H 03/18/21 06:37: POC Glucose 132 H 03/18/21 08:46: PT 13.0, INR 1.0 Radiology Impression Abdomen/Pelvis CT 03/18/21 00:53 IMPRESSION: There is significant hydronephrosis bilaterally with some thinning of the renal cortices suggestive of atrophy, left more than right raising the concern of chronic hydronephrosis. There is a very large right-sided staghorn calculus as described above. In addition there are several small stones in the distal right ureter. There is no distinct stone along the left ureter although there is bilateral hydroureter. Cannot exclude posterior urinary bladder mass. Recommend follow-up with urological consultation and cystoscopy along with retrograde pyelogram if indicated. Electronically Signed: Nevin Campbell MD at 3:37 EDT , Service support , Gallbladder Ultrasound 03/18/21 04:01 IMPRESSION: Right renal stones measuring up to 1.9 cm. Moderate right hydronephrosis. Hyperechoic right kidney with cortical thinning. This is consistent with medical renal disease. Pancreas not visualized. Normal sonographic appearance of the gallbladder. Electronically Signed: Lucio Rubin MD at 9:25 EDT Tel , Service support , Charges/Coding Visit Charges Office Visits / Consults: [id number] IP Consult L3
[2021-03-18 13:00] LABS: Bedside Glucose 140 mg/dL (70-110)
[2021-03-18 13:13] LABS: Amphetamine Urine VISTA NEGATIVE (<1000 ng/mL); Barbiturate Urine VISTA NEGATIVE (< 200 ng/mL); Benzodiazepine Urine VISTA NEGATIVE (< 200 ng/mL); Cocaine Urine VISTA NEGATIVE (< 300 ng/mL); Ecstacy Urine VISTA NEGATIVE (< 500 ng/mL); Methadone Urine VISTA NEGATIVE (< 300 ng/mL); PCP Urine VISTA NEGATIVE (< 25 ng/mL); THC Urine VISTA NEGATIVE (< 50 ng/mL); Vista UDS pH Range 6
[2021-03-18 13:14] LABS: Urine Sodium 88 mmol/L (Not Establ.)
[2021-03-18 13:37] LABS: Pathologist Review Reviewed
--- NOTE | 2021-03-18 14:13 | CON.PCM.RE_ITS ---
Assessment & Plan Assessment/Plan (1) Acute on chronic renal failure: QUALIFIERS: Acute renal failure type: unspecified Chronic kidney disease stage: stage 5, not on chronic dialysis Qualified Code(s): N17.9 - Acute kidney failure, unspecified; N18.5 - Chronic kidney disease, stage 5 PLAN: Creatinine 13 BUN 187 on admit. Creatinine 6 last admit. No dialysis access. Will need to initiate dialysis with tunneled catheter for severe metabolic acidosis, uremic symptoms (2) CKD stage 4 due to type 2 diabetes mellitus: PLAN: creatinine 6 last admit. 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 Diabetes mellitus complication status: with skin complications Diabetes mellitus complication detail: with other skin ulcer Qualified Code(s): E11.622 - Type 2 diabetes mellitus with other skin ulcer; L98.499 - Non-pressure chronic ulcer of skin of other sites with unspecified severity (7) Essential (primary) hypertension: (8) Anemia: PLAN: hgb stable (9) Metabolic acidosis: PLAN: bicarb drip (10) Secondary hyperparathyroidism (of renal origin): HPI Consult Data Date of Consult: 03/19/21 HPI Narrative HPI Narrative: JUVENCIO QUINTERO, is a 60 y/o obese M who presents to [facility] with nausea, vomiting 1 day prior to admit. Denied fever, chills, abdominal pain. No hematemesis. Lipase elevated in ED with elevated potassium, BUN and creatinine. Severe metabolic acidosis, started on iv fluids with bicarbonate. Denied change in urine output. Discussed dialysis in the office. Currently without dialysis access. Will need to initiate dialysis with tunneled catheter. Discussed with pt. [facility] Medical History (Updated 03/18/21 @ 12:42 by Yudy ROSE, PA-C) Acute on chronic renal failure Benign prostatic hyperplasia Chronic diastolic (congestive) heart failure Chronic kidney disease, stage 4 (severe) CKD (chronic kidney disease), stage III Diabetes mellitus, type II Essential (primary) hypertension Falls frequently HLD (hyperlipidemia) Hyperosmolar non-ketotic state in patient with type 2 diabetes mellitus Implantable cardioverter-defibrillator (ICD) in situ Iron deficiency anemia Left bundle branch block (LBBB) Mitral valve regurgitation Morbid obesity Non-ischemic cardiomyopathy Nonsustained ventricular tachycardia RAQUEL (obstructive sleep apnea) Primary cardiomyopathy Right foot drop Venous ulcer of left lower extremity without varicose veins Home Medications allopurinol 150 mg PO DAILY 01/27/16 [History Last Taken 01/24/21] linagliptin 5 mg PO DAILY 08/05/17 [History Last Taken 01/24/21] ammonium lactate 1 applicatio TP DAILY PRN PRN 12/23/18 [History Last Taken 01/24/21] latanoprost 1 drp EACH EYE DAILY 12/23/18 [History Last Taken 01/23/21] tamsulosin 0.4 mg capsule 0.4 mg PO DAILY 06/21/19 [History Last Taken 01/24/21] amlodipine 10 mg PO DAILY 01/24/21 [History Last Taken 01/24/21] ferrous sulfate 325 mg PO BID #14 tab 01/28/21 [Rx Last Taken Unknown] carvedilol 25 mg tablet 37.5 mg PO BID tab 02/27/21 [History Last Taken Unknown] Allergy/AdvReac Type Severity Reaction Status Date / Time No Known Allergies Allergy Verified 03/17/21 23:50 Family History Father Hypertension Heart disease Diabetes Mother Diabetes Chronic kidney disease Hypertension Anemia Surgical History H/O skin graft Hx of appendectomy Status post tonsillectomy and adenoidectomy Social History household members: none Smoking Status: Never smoker alcohol intake: never substance use type: does not use caffeine: Yes ROS Constitutional Constitutional: Reports malaise and weight loss; Denies chills or fever(s) Eyes Eyes: Denies loss of vision ENT HEENT: Denies epistaxis or hoarseness Cardiovascular Cardiovascular: Denies chest pain or syncope Respiratory/Chest Respiratory/Chest: Denies dyspnea on exertion, hemoptysis or shortness of breath at rest Gastrointestinal Gastrointestinal: Reports nausea and vomiting; Denies abdominal pain, diarrhea, hematemesis or melena Genitourinary Genitourinary: Denies difficulty urinating, dysuria or hematuria Musculoskeletal Musculoskeletal: Reports other Details: generalized weakness, no fall ; Denies joint swelling or tremors Integumentary Integumentary: Denies rash Neurologic Neurologic: Denies confusion, focal weakness or tremor(s) Psychiatric Psychiatric: Denies anxiety, confusion or depression Endocrine Endocrinology: Reports cold intolerance Hematologic/Lymphatic Hematologic/Lymphatic: Reports anemia Physical Exam Const alert, oriented x3 and no apparent distress HEENT normocephalic and TM's normal bilaterally Resp clear to auscultation bilaterally Cardio regular rate GI non-tender and non-distended Palpation: soft Bladder / Kidney Exam: catheter in place Skin no wounds Neuro Sensorium / Orientation: awake and alert Psych cooperative Medical Records Data Medical Nutrition Assessment Dietitian: Nutrition Therapy Diagnosis Start: 03/18/21 09:54 Freq: Status: Active Protocol: Document 03/18/21 12:37 RMA (Rec: 03/18/21 12:37 RMA [id number]) Nutrition Malnutrition Evidence of Malnutrition Exists No Intake Problem Inadequate Oral Intake Etiology related to altered GI function /inflammation Signs/Symptoms as evidenced by NPO status. Status Active Problem Clinical Problem Altered Nutrient-Related Laboratory Values Etiology related to renal dysfunction/ CHANTALE on CKD stage 4 Signs/Symptoms as evidenced by BUN 179, Creat 12.80, K+ 6.3 Status Active Problem Recommendation Dietitian Recommendations/Changes Continue NPO until medically able to advance diet as tolerated to 2200 calorie/ Carbohydrate-Controlled/Renal with protein restriction. Diet education as appropriate. ONS only if PO fails at meals. Parenteral nutrition support if unable to advance PO nutrition in 24-72 hours. Lab / Micro Data Result Diagrams: 03/19/21 06:10 03/19/21 06:10 Labs: Laboratory Results - last 24 hr 03/18/21 01:13: WBC 15.5 H, RBC 5.00, Hgb 11.8 L, Hct 39.5 L, MCV 79.0 L, MCH 23.6 L, MCHC 29.9 L, RDW Std Deviation 57.3 H, RDW Coeff of Jeffrey 20.3 H, Plt Count 228, MPV 10.4, Immature Gran % (Auto) 0.900, Neut % (Auto) 88.6 H, Lymph % (Auto) 4.6 L, [place] % (Auto) 5.7, Eos % (Auto) 0.1, Baso % (Auto) 0.1, Absolute Neuts (auto) 13.7 H, Absolute Lymphs (auto) 0.71 L, Nucleated RBC % 0 03/18/21 01:13: Sodium Cancelled, Potassium Cancelled, Chloride Cancelled, Ca rbon Dioxide Cancelled, Anion Gap Cancelled, BUN Cancelled, Creatinine Cancelled, Estim Creat Clear Calc Cancelled, Est GFR (MDRD) Af Amer Cancelled, Est GFR (MDRD) Non-Af Cancelled, BUN/Creatinine Ratio Cancelled, Glucose Cancelled, Calcium Cancelled, Total Bilirubin Cancelled, AST Cancelled, ALT C ancelled, Alkaline Phosphatase Cancelled, Total Protein Cancelled, Albumin Cancelled, Globulin Cancelled, Albumin/Globulin Ratio Cancelled, Lipase Cancelled 03/18/21 02:00: Sodium 135 L, Potassium 6.6 H*, Chloride 110 H, Carbon Dioxide 10.0 L, Anion Gap 15, BUN 187 H*, Creatinine 13.10 H*, Estim Creat Clear Calc 6.23, Est GFR (MDRD) Af Amer 5 L, Est GFR (MDRD) Non-Af 4 L, BUN/Creatinine Rat io 14.3, Glucose 155 H, Calcium 9.8, Total Bilirubin 0.40, AST 12 L, ALT 12 L, Alkaline Phosphatase 98, Total Protein 8.9 H, Albumin 3.3, Globulin 5.6 H, Albumin/Globulin Ratio 0.6 L, Lipase 1405 H 03/18/21 02:00: Phosphorus 7.4 H, Magnesium 2.1 03/18/21 02:00: B-Natriuretic Peptide 19.7 03/18/21 04:09: Ethyl Alcohol 4.0 03/18/21 05:52: WBC 15.9 H, RBC 4.97, Hgb 11.6 L, Hct 39.2 L, MCV 78.9 L, MCH 23.3 L, MCHC 29.6 L, RDW Std Deviation 55.8 H, RDW Coeff of Jeffrey 19.9 H, Plt Count 183, MPV 9.9, Immature Gran % (Auto) 0.900, Neut % (Auto) 83.3 H, Lymph % (Auto) 5.3 L, [place] % (Auto) 10.1 H, Eos % (Auto) 0.1, Baso % (Auto) 0.3, Absolute Neuts (auto) 13.2 H, Absolute Lymphs (auto) 0.84, Nucleated RBC % 0.1, Diff Path Review Reviewed 03/18/21 05:52: Sodium 139, Potassium 6.3 H*, Chloride 111 H, Carbon Dioxide 9.0 L*, Anion Gap 19 H, BUN 179 H*, Creatinine 12.80 H*, Estim Creat Clear Calc 6.37, Est GFR (MDRD) Af Amer 5 L, Est GFR (MDRD) Non-Af 4 L, BUN/Creatinine Ratio 14.0, Glucose 170 H, Calcium 9.9, Total Bilirubin 0.40, AST 19, ALT 10 L, Alkaline Phosphatase 92, Total Protein 7.3, Albumin 3.1 L, Globulin 4.2, Albumin/Globulin Ratio 0.7 L, Triglycerides 141, Cholesterol 118, LDL Cholesterol 63, VLDL Cholesterol 28, HDL Cholesterol 27 L, Lipase 1407 H 03/18/21 06:37: POC Glucose 132 H 03/18/21 08:46: PT 13.0, INR 1.0 03/18/21 12:20: POC Glucose 140 H 03/18/21 12:40: Urine Opiates Screen NEGATIVE, Urine Methadone Screen NEGATIVE, Ur Barbiturates Screen NEGATIVE, Ur Phencyclidine Scrn NEGATIVE, Ur Amphetamines Screen NEGATIVE, U Methamphetamin-MDMA NEGATIVE, U Benzodiazepines Scrn NEGATIVE, Urine Cocaine Screen NEGATIVE, U Cannabinoids Screen NEGATIVE, Ur Drug Screen Comment 03/18/21 12:40: Ur Random Sodium 88, Urine Creatinine 82.60 Micro: Microbiology 03/18/21 12:55 Mucosa - Nose SARS-CoV-2 Antigen (Rapid) - Final Radiology Impression Abdomen/Pelvis CT 03/18/21 00:53 IMPRESSION: There is significant hydronephrosis bilaterally with some thinning of the renal cortices suggestive of atrophy, left more than right raising the concern of chronic hydronephrosis. There is a very large right-sided staghorn calculus as described above. In addition there are several small stones in the distal right ureter. There is no distinct stone along the left ureter although there is bilateral hydroureter. Cannot exclude posterior urinary bladder mass. Recommend follow-up with urological consultation and cystoscopy along with retrograde pyelogram if indicated. Electronically Signed: Nevin Campbell MD at 3:37 EDT , Service support , Gallbladder Ultrasound 03/18/21 04:01 IMPRESSION: Right renal stones measuring up to 1.9 cm. Moderate right hydronephrosis. Hyperechoic right kidney with cortical thinning. This is consistent with medical renal disease. Pancreas not visualized. Normal sonographic appearance of the gallbladder. Electronically Signed: Lucio Rubin MD at 9:25 EDT Tel , Service support ,
--- NOTE | 2021-03-18 14:21 | CASEMGMT ---
Per Dr. Chavez, pt to be set up with OP dialysis. Pt has [facility] and the closest in-network facility is renal care in [place]. Dr. Chavez updated, voices understanding and she states to have Dr. Garcia to follow pt at [place]. Call to [facility] to notify of upcoming referral and request admission sheet. CM to fax further clinicals once obtained. CM to follow. Theron MILAN CM
--- NOTE | 2021-03-18 14:21 | CASEMGMT ---
Per Dr. Chavez, pt to be set up with OP dialysis. Pt has [facility] and the closest in-network facility is renal care in [place]. Dr. Chavez updated, voices understanding and she states to have Dr. Garcia to follow pt at [place]. Referral faxed to renal care in [place] with their admission sheet. CM to fax further clinicals once obtained. CM to follow. SStnieves MILAN CM
[2021-03-18] MEDS: Lidocaine 1% (20 ml mdv) 20 ML Vial (15:02)
--- NOTE | 2021-03-18 15:25 | CHAPLAIN ---
Type of Pastoral Visit _x__ Initial Visit ___ Follow-up Visit ___ On-call Visit ___ General Patient Visit ___ Spiritual Assessment ___ Family Conference ___ Bereavement ___ Rapid Response ___ Code Blue ___ Other (describe below) Pastoral Care Referral From _x__ Patient ___ Family ___ Nurse ___ Physician ___ Time Motion Analyst ___ Face Worker ___ Other (describe below) Sacrament/Intervention _x__ Active listening ___ Anointing ___ Zoroastrianism ___ Bereavement ___ Communion ___ Fide exploration ___ ___ Life review ___ Prayer ___ Reconciliation ___ Sacrament of Sick ___ Supportive presence ___ Wedding ___ Other (describe below) Pastoral Comments
[2021-03-18] MEDS: Bupivacaine 0.25% 30 ML Vial (15:29)
[2021-03-18] MEDS: Lidocaine 1% /Epi 1:100 (50ml) 50 ML VIAL (15:29)
[2021-03-18] MEDS: Heparin 10,000 UNITS/10 ML Vial 10000 UNITS (15:30)
--- NOTE | 2021-03-18 15:41 | CASEMGMT ---
Social Work Patient active with [employer] per RN CM. Telephone call to Phuong LEBRON. 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 Patient has a med alert, aides (Tues/Thurs fro 3 hours) and meals through [employer]. Will continue to follow as needed. Franko NIELSON, JACIS
--- NOTE | 2021-03-18 15:49 | OP.PCM_ITS ---
Report of Operation Date of Procedure: 03/18/21 Pre-Operative Diagnosis: Need for dialysis access, Acute on chronic kidney inju ry Post-Operative Diagnosis: Same Surgery/Procedure Performed:: Placement of right internal jugular tunneled dialysis catheter Use of ultrasound Use of fluoroscopy Surgeon: Annmarie Shabazz Type of Anesthesia: Local MAC Anesthesiologist: Chevy Jacinto Special Medications: Ancef 3 g IV x1 Estimated Blood Loss (mL): < 10 cc Fluids Replaced: Per anesthesia Description of Procedure: After informed consent was given, the patient was brought to the operating room and placed in the supine position. Appropriate time out protocol was followed. [He] was then given IV conscious sedation for anesthesia. The patient's right upper chest and neck were then prepped with a surgical skin preparation and sterile surgical drapes were placed. After proper landmarks were ascertained, the skin at the upper right chest area was then infiltrated with 1:1 mixture of 1% lidocaine with epinephrine and 0.5% maricaine. A needle trocar was then inserted into the right internal jugular vein with ultrasound guidance-multiple vessels were viewed with u/s and the right IJ was chosen-- and there was good aspiration of venous blood. A wire was then threaded into the needle trocar and this was visualized under fluoroscopy to ensure that the wire was in the superior vena cava. Once this was done, then the needle trocar was removed. A small incision was made with an 11 blade knife at the wire entrance site. The dilator x2 with the introducer sheath attached was then placed over the wire into the right internal jugular vein via the Seldinger technique and this was visualized under fluoroscopy. Next the introducer and sheath were in proper position as visualized by fluoroscopy. The location of the cuffed was estimated on the skin, an incision was made with a 15 blade scalpel. The 14.5 Fr x 19 cm Palindrome dual lumen (Lot [id number] reference [id number]) was tunneled from the chest incision to the right neck incision. The sheath was removed. The catheter was placed through the introducer and was positioned with its tip at the junction of the superior vena cava and the right atrium as visualized under fluoroscopy. The cuff of the catheter was in the subcutaneous tissue. The catheter flushed and piotr well with saline. Catheter was also flushed with 1.6 cc of 1-10,000 of heparin. Hemostasis was assured. Silver dressing was placed at the catheter exit site. Catheter was sutured with 3-0 nylon sutures. The neck incision was sutured with interrupted 3-0 Vicryl interrupted sutures x2 and Steri-Strips were placed. A large OpSite was placed over the catheter site and a small OpSite over the neck incision. The patient tolerated the procedure well. Grafts/Implants Used: 14.5 Fr x 19 cm Palindrome dual lumen (Lot [id number] reference [id number]) Complications none
--- NOTE | 2021-03-18 16:05 | RAD_ITS ---
STUDY: X-RAY CHEST REASON FOR EXAM: Male, 60 years old. Dialysis cath -- pacu TECHNIQUE: Frontal view COMPARISON: 01/24/2021 FINDINGS: Stable left-sided pacemaker. Interval placement of a right-sided dual-lumen venous catheter. The lungs are clear and expanded. There is no demonstrated pleural abnormality. Normal size heart. Normal mediastinum and andi. Normal visualized pulmonary arteries. Normal visualized aortic arch and descending thoracic aorta. Normal visualized thoracic spine. Normal visualized ribs, clavicles, and shoulders. There is no demonstrated abnormality of the visualized soft tissue structures of the upper abdomen. RAD/CXR for Line Placement IMPRESSION: Normal x-ray examination of the chest. Electronically Signed: Jeff Pederson DO at 17:09 EDT Tel [phone], Service support ,
--- NOTE | 2021-03-18 17:46 | DIALYSIS ---
Report from primary RN, Clarence Sullivan. Access: Right chest IJ. IJ inserted today under fluoroscopy. Site benign. Dressing dry and intact.
--- NOTE | 2021-03-18 18:38 | NURSING ---
pt off floor unable to obtain 1500 tele strip
[2021-03-18 18:41] LABS: Bedside Glucose 131 mg/dL (70-110)
[2021-03-18 19:24] LABS: Hepatitis B Surface Antibody Non-Reactive
[2021-03-18 19:32] LABS: Hepatitis B Surface Antigen Non-Reactive (Nonreactive)
[2021-03-18] MEDS: Heparin 10,000 UNITS/10 ML Vial 3200 UNITS IV (20:48)
--- NOTE | 2021-03-18 20:58 | DIALYSIS ---
Hemodialysis complete. 2 hour run, 2k bath. Net fluid balance = 0 ml. Patient tolerated HD tx well. Right chest CVC: Site benign, dressing dry and intact. Lumen flushed with NS, filled to lumen with Heparin, clamped and capped. Next HD tx 03/19/2021. Report given to primary RN, Shirley Adams.
[2021-03-18 22:46] LABS: Bedside Glucose 158 mg/dL (70-110)
[2021-03-19] VITALS (12 sets, daily range): BP systolic 108–139; BP diastolic 64–87; PULSE 73–120; RESP 16–18; TEMP 36.4–38.1; O2SAT 92–96
[2021-03-19 05:36] LABS: Bedside Glucose 160 mg/dL (70-110)
[2021-03-19 07:11] LABS: Absolute Lymphocyte Count 1.15 X10^3/uL (0.83-4.51); Absolute Neutrophil Count 10.5 X10^3/uL (2.0-7.7); Basophil# 0.04 X10^3/uL; Basophil% 0.3 % (0-1); Differential Indicated SCAN CRITERIA MET; Eosinophil# 0.07 X10^3/uL; Eosinophils% 0.5 % (0-5); Hematocrit 32.3 % (40-54); Hemoglobin 10.2 g/dL (13.0-16.5); Lymphocyte # 1.15 X10^3/ul (0.83-4.51); Lymphocyte % 8.4 % (19-41); Mean Corp Hgb Conc 31.6 g/dL (32-36); Mean Corpuscular Hgb 23.6 pg (27.0-32.0); Mean Corpuscular Volume 74.6 fL (80-94); Mean Platelet Vol. 10.4 fl (6.2-12.0); Monocyte# 1.75 X10^3/uL; Monocyte% 12.8 % (0-10); NRBC Flagged by Analyzer 0.2 % (0-5); Neutrophil % 76.9 % (47-70); POSITIVE DIFFERENTIAL YES; Platelet Count 187 K/mm3 (150-450); RBC Distribution Width CV 19.6 % (11.6-14.6); RBC Distribution Width SD 51.8 fl (35.1-43.9); Red Blood Count 4.33 M/mm3 (4.6-6.2); White Blood Count 13.7 K/mm3 (4.4-11.0)
[2021-03-19 07:41] LABS: ALB/GLOB Ratio 0.6 RATIO (0.9-2.4); AST(SGOT) 18 U/L (15-37); Alanine Aminotransfer ALT/SGPT 9 U/L (16-61); Albumin, Serum 2.8 g/dL (3.2-5.0); Alkaline Phosphatase 77 U/L (45-117); Anion Gap 13 (5-15); BUN 132 mg/dL (7-18); BUN/Creat Ratio 12.6 RATIO (10-20); Calcium,Total 8.6 mg/dL (8.5-10.1); Chloride 105 mmol/L (98-107); EST Glomerular Filtration Rate 5 mL/min (>60); Est Glom Filt Rate - Afr Amer 7 mL/min (>60); Estimated Creatinine Clearance 7.77 ml/min; Globulin 4.5 g/dL (2.2-4.2); Glucose 158 mg/dL (74-106); Lipase 745 U/L (73-393); Potassium 4.6 mmol/L (3.5-5.1); Protein, Total 7.3 g/dL (6.4-8.2); Sodium Level 137 mmol/L (136-145)
--- NOTE | 2021-03-19 09:30 | CASEMGMT ---
Addendum entered by Megha Diggs 03/19/21 14:15: Call to [facility] and everything has been submitted for insurance approval and they will notify this RN RIANA once obtained. CM to follow. Theron MILAN CM Original Note: OP dialysis referral faxed to [facility]. CM to follow. Theron MILAN CM
[2021-03-19] MEDS: Latanoprost 0.005% 1 Bottle 1 DRP EACH EYE (10:13)
[2021-03-19] MEDS: Heparin Injection (Vial) 5,000 UNIT/ML VIAL 5000 UNIT SC ×2 (10:13→21:40)
[2021-03-19] MEDS: Tamsulosin HCl 0.4 MG Capsule PO (10:13)
[2021-03-19] MEDS: Allopurinol 300 MG Tablet 150 MG PO (10:16)
--- NOTE | 2021-03-19 10:36 | PCM.PN.HOSP ---
Subjective Subjective Feels a little bit better after his dialysis yesterday. He was run even for about 2 hours. Objective Data Objective Data Vital Signs: Vital Signs Temp Pulse Resp BP Pulse Ox 97.6 F L 113 H 18 111/74 92 03/19/21 09:10 03/19/21 09:10 03/19/21 09:10 03/19/21 09:10 03/19/21 09:10 Oxygen Flow Rate (L/min) 1 Oxygen Delivery Method Room Air Weight: 285 lb 15.033 oz Body Mass Index (BMI) 39.8 Intake & Output: Intake and Output for Last 24 Hours 03/18/21 03/19/21 03/20/21 03:59 03:59 03:59 Intake Total 1030 / 1030 1434.99 / 1434.99 1103.34 / 1103.34 Output Total 1550 / 1550 200 / 200 Balance 1030 / 1030 -115.01 / -115.01 903.34 / 903.34 Medical Nutrition Assessment Dietitian: Nutrition Therapy Diagnosis Start: 03/18/21 09:54 Freq: Status: Active Protocol: Document 03/18/21 12:37 RMA (Rec: 03/18/21 12:37 RMA [id number]) Nutrition Malnutrition Evidence of Malnutrition Exists No Intake Problem Inadequate Oral Intake Etiology related to altered GI function /inflammation Signs/Symptoms as evidenced by NPO status. Status Active Problem Clinical Problem Altered Nutrient-Related Laboratory Values Etiology related to renal dysfunction/ CHANTALE on CKD stage 4 Signs/Symptoms as evidenced by BUN 179, Creat 12.80, K+ 6.3 Status Active Problem Recommendation Dietitian Recommendations/Changes Continue NPO until medically able to advance diet as tolerated to 2200 calorie/ Carbohydrate-Controlled/Renal with protein restriction. Diet education as appropriate. ONS only if PO fails at meals. Parenteral nutrition support if unable to advance PO nutrition in 24-72 hours. Lab / Micro Data Result Diagrams: 03/19/21 06:10 03/19/21 06:10 Labs: Laboratory Results - last 24 hr 03/18/21 05:52: Diff Path Review Reviewed 03/18/21 12:20: POC Glucose 140 H 03/18/21 12:40: Urine Opiates Screen NEGATIVE, Urine Methadone Screen NEGATIVE, Ur Barbiturates Screen NEGATIVE, Ur Phencyclidine Scrn NEGATIVE, Ur Amphetamines Screen NEGATIVE, U Methamphetamin-MDMA NEGATIVE, U Benzodiazepines Scrn NEGATIVE, Urine Cocaine Screen NEGATIVE, U Cannabinoids Screen NEGATIVE, Ur Drug Screen Comment 03/18/21 12:40: Ur Random Sodium 88, Urine Creatinine 82.60 03/18/21 18:34: POC Glucose 131 H 03/18/21 22:37: POC Glucose 158 H 03/18/21 : Hep Bs Antibody Non-Reactive 03/18/21 : Hep Bs Antigen Non-Reactive 03/19/21 05:24: POC Glucose 160 H 03/19/21 06:10: WBC 13.7 H, RBC 4.33 L, Hgb 10.2 L, Hct 32.3 L, MCV 74.6 L D, MCH 23.6 L, MCHC 31.6 L D, RDW Std Deviation 51.8 H, RDW Coeff of Jeffrey 19.6 H, Plt Count 187, MPV 10.4, Immature Gran % (Auto) 1.100 H, Neut % (Auto) 76.9 H, Lymph % (Auto) 8.4 L, [place] % (Auto) 12.8 H, Eos % (Auto) 0.5, Baso % (Auto) 0.3, Absolute Neuts (auto) 10.5 H, Absolute Lymphs (auto) 1.15, Nucleated RBC % 0.2, Differential Comment COMMENT, Diff Path Review December03/19/21 06:10: Sodium 137, Potassium 4.6, Chloride 105, Carbon Dioxide 19.0 L, Anion Gap 13, BUN 132 H*, Creatinine 10.50 H*, Estim Creat Clear Calc 7.77, Est GFR (MDRD) Af Amer 7 L, Est GFR (MDRD) Non-Af 5 L, BUN/Creatinine Ratio 12.6, Glucose 158 H, Calcium 8.6, Total Bilirubin 0.60, AST 18, ALT 9 L, Alkaline Phosphatase 77, Total Protein 7.3, Albumin 2.8 L, Globulin 4.5 H, Albumin/Globulin Ratio 0.6 L, Lipase 745 H Micro: Microbiology 03/18/21 12:55 Mucosa - Nose SARS-CoV-2 Antigen (Rapid) - Final Radiography Diagnostic Testing: Radiology Impression Chest X-Ray 03/18/21 16:05 IMPRESSION: Normal x-ray examination of the chest. Electronically Signed: Jeff Pederson DO at 17:09 EDT Tel [phone], Service support , Physical Exam Const alert, oriented x3 and no apparent distress General Appearance: cooperative HEENT normocephalic and moist oral mucous membranes Eyes PERRL, EOMs intact bilaterally and conjunctivae normal Neck supple and no JVD Resp normal respiratory effort, no retractions, no use of accessory muscles and clear to auscultation bilaterally Auscultation: Negative for crackles, rales, rhonchi or wheezes Cardio regular rate, regular rhythm, S1 normal heart sound, S2 normal heart sound and no murmurs GI soft to palpation, non-tender and non-distended; Negative for hepatosplenomegaly Extremity no clubbing, cyanosis or edema Skin no rashes or lesions noted Neuro no focal motor deficits and no sensory deficits noted Psych affect normal Appearance: appropriate Assessment & Plan Assessment/Plan (1) Acute pancreatitis: QUALIFIERS: Pancreatitis type: unspecified pancreatitis type Acute pancreatitis complication: unspecified Qualified Code(s): K85.90 - Acute pancreatitis without necrosis or infection, unspecified (2) CHANTALE (acute kidney injury): (3) Hydronephrosis concurrent with and due to calculi of kidney and ureter: (4) Hyperkalemia: PLAN: 1. Acute pancreatitis w/ abdominal pain, N/V: Will admit to Admission lipase 1405, LFTs not marked appearing, maintain on aggressive IVFs, NPO, IV PPI, IV/po pain control, trend lipase, CMP. Will obtain RUQ US although no marked findings on CT, FLP, further assess for EtOH consumption risk as etiology for pancreatitis. 03/19/2021: Right upper quadrant ultrasound is unremarkable, can advance diet to renal diet this low-fat 2. CHANTALE on Chronic Kidney Disease Stage IV/hyperkalemia: Admission BUN/Cr 27/13.10, baseline renal function most recently 6-7, last 02/27/2021 creatinine 6.71, will continue to aggressively hydrate cautiously monitoring for volume overload given underlying cardiac disease, repeat CMP in a.m., suspected prerenal etiology given significant GI losses, consult nephrology. Requested [facility]Na. Patient with recent evaluation 02/22/2021 with general surgery, Dr. Moya for AVF initiation. Will consult Dr. Chavez with whom he has seen prior. 03/19/2021: Consult to general surgery for placement of a tunneled catheter, will undergo dialysis for the next 2 days 3. Incidentally noted bilateral hydronephrosis and hydroureter: CT abdomen pelvis with significant hydronephrosis bilaterally with some thinning of the renal cortices suggestive of atrophy, left more than right likely secondary to chronic hydronephrosis, a very large right-sided staghorn calculus as well as small several stones in the distal right ureter with no distinct stone along the left ureter although there is bilateral hydroureter, reportedly cannot exclude posterior urinary bladder mass with recommended follow-up with urology. Noted prior renal US w/ BL nonobstructing renal calculi and multiple cysts, mild to moderate left hydronephrosis, potentially worsening. Will request consultation with Dr. Sow. 4. Leukocytosis, suspect reactive: Admission CBC with WBC 15.5 with left shift and lymphopenia, given ongoing intractable nausea and vomiting suspect significant dehydration, will continue to aggressively hydrate, treat #1, trend CBC. 5. Chronic diastolic CHF/Nonischemic cardiomyopathy: We will continue aspirin, Coreg, not on statin therapy, diuretic or STACY inhibitor/ARB likely secondary to renal disease. Cautiously monitored IV fluid administration. 12/24/2018 echocardiogram with EF 55%, mildly enlarged LA, compared to prior echocardiogram EF improved from 20% to 55%. 6. Hx NSVTP: s/p AICD placement, recent 03/15/2021 ICD assessment. 7. Diabetes mellitus type II: Hold oral home regimen, given presentation will be admitted n.p.o. status, maintain every 6 hour accu checks w/ ISS. 8. Hypertension: Continue home regimen including amlodipine, Coreg with hold parameters, PRN hydralazine. 9. Hyperlipidemia: Not on statin therapy, defer to outpatient. 10. BPH: We will continue patient on Flomax regimen. 11 chronic anemia, AOCD, iron deficiency anemia: Admission hemoglobin 11.8, previously 02/27/2021 hemoglobin 10, continue iron supplementation, trend CBC. 12. Obesity: Weight loss and lifestyle changes encouraged. 13. RAQUEL: Continue CPAP nightly if amenable. 14. DVT prophylaxis: SCDs, heparin. Charges/Coding Visit Charges Inpatient E&M: 64718 Subs Hosp L2
--- NOTE | 2021-03-19 11:52 | PN.RENAL_ITS ---
Subjective Subjective dialyzed last night 2hrs with tunneled catheter. Dialysis #2 scheduled for today. Still with anorexia, no nausea, vomiting, diarrhea. Denies SOB. Objective Data Objective Data Vital Signs: Vital Signs Temp Pulse Resp BP Pulse Ox 97.6 F L 113 H 18 111/74 92 03/19/21 09:10 03/19/21 09:10 03/19/21 09:10 03/19/21 09:10 03/19/21 09:10 Oxygen Flow Rate (L/min) 1 Oxygen Delivery Method Room Air Weight: 129.7 kg Body Mass Index (BMI) 39.8 Intake & Output: Intake and Output for Last 24 Hours 03/17/21 03/18/21 03/19/21 23:59 23:59 23:59 Intake Total 2464.99 / 2464.99 1213.34 / 1213.34 Output Total 1250 / 1550 500 / 500 Balance 1214.99 / 914.99 713.34 / 713.34 Medical Nutrition Assessment Dietitian: Nutrition Therapy Diagnosis Start: 03/18/21 09:54 Freq: Status: Active Protocol: Document 03/18/21 12:37 RMA (Rec: 03/18/21 12:37 RMA [id number]) Nutrition Malnutrition Evidence of Malnutrition Exists No Intake Problem Inadequate Oral Intake Etiology related to altered GI function /inflammation Signs/Symptoms as evidenced by NPO status. Status Active Problem Clinical Problem Altered Nutrient-Related Laboratory Values Etiology related to renal dysfunction/ CHANTALE on CKD stage 4 Signs/Symptoms as evidenced by BUN 179, Creat 12.80, K+ 6.3 Status Active Problem Recommendation Dietitian Recommendations/Changes Continue NPO until medically able to advance diet as tolerated to 2200 calorie/ Carbohydrate-Controlled/Renal with protein restriction. Diet education as appropriate. ONS only if PO fails at meals. Parenteral nutrition support if unable to advance PO nutrition in 24-72 hours. Lab / Micro Data Result Diagrams: 03/19/21 06:10 03/19/21 06:10 Labs: Laboratory Results - last 24 hr 03/18/21 05:52: Diff Path Review Reviewed 03/18/21 12:20: POC Glucose 140 H 03/18/21 12:40: Urine Opiates Screen NEGATIVE, Urine Methadone Screen NEGATIVE, Ur Barbiturates Screen NEGATIVE, Ur Phencyclidine Scrn NEGATIVE, Ur Amphetamines Screen NEGATIVE, U Methamphetamin-MDMA NEGATIVE, U Benzodiazepines Scrn NEGATIVE, Urine Cocaine Screen NEGATIVE, U Cannabinoids Screen NEGATIVE, Ur Drug Screen Comment 03/18/21 12:40: Ur Random Sodium 88, Urine Creatinine 82.60 03/18/21 18:34: POC Glucose 131 H 03/18/21 22:37: POC Glucose 158 H 03/18/21 : Hep Bs Antibody Non-Reactive 03/18/21 : Hep Bs Antigen Non-Reactive 03/19/21 05:24: POC Glucose 160 H 03/19/21 06:10: WBC 13.7 H, RBC 4.33 L, Hgb 10.2 L, Hct 32.3 L, MCV 74.6 L D, MCH 23.6 L, MCHC 31.6 L D, RDW Std Deviation 51.8 H, RDW Coeff of Jeffrey 19.6 H, Plt Count 187, MPV 10.4, Immature Gran % (Auto) 1.100 H, Neut % (Auto) 76.9 H, Lymph % (Auto) 8.4 L, [place] % (Auto) 12.8 H, Eos % (Auto) 0.5, Baso % (Auto) 0.3, Absolute Neuts (auto) 10.5 H, Absolute Lymphs (auto) 1.15, Nucleated RBC % 0.2, Differential Comment COMMENT, Diff Path Review December03/19/21 06:10: Sodium 137, Potassium 4.6, Chloride 105, Carbon Dioxide 19.0 L, Anion Gap 13, BUN 132 H*, Creatinine 10.50 H*, Estim Creat Clear Calc 7.77, Est GFR (MDRD) Af Amer 7 L, Est GFR (MDRD) Non-Af 5 L, BUN/Creatinine Ratio 12.6, Glucose 158 H, Calcium 8.6, Total Bilirubin 0.60, AST 18, ALT 9 L, Alkaline Phosphatase 77, Total Protein 7.3, Albumin 2.8 L, Globulin 4.5 H, Albumin/Globulin Ratio 0.6 L, Lipase 745 H Micro: Microbiology 03/18/21 12:55 Mucosa - Nose SARS-CoV-2 Antigen (Rapid) - Final Radiography Diagnostic Testing: Radiology Impression Chest X-Ray 03/18/21 16:05 IMPRESSION: Normal x-ray examination of the chest. Electronically Signed: Jeff Pederson DO at 17:09 EDT Tel [phone], Service support , Physical Exam Const alert and oriented x3 Resp clear to auscultation bilaterally Cardio regular rate and no rub GI non-tender and non-distended Bladder / Kidney Exam: catheter in place Neuro Sensorium / Orientation: awake and alert Psych cooperative Assessment & Plan Assessment/Plan (1) Acute on chronic renal failure: QUALIFIERS: Acute renal failure type: unspecified Chronic kidney disease stage: stage 5, not on chronic dialysis Qualified Code(s): N17.9 - Acute kidney failure, unspecified; N18.5 - Chronic kidney disease, stage 5 PLAN: dialysis #2 today. Likely ESRD rather than acute on CKD since pt with advanced kidney disease prior to admit. Will need AVF placement as outpt. Arrange outpt dialysis in [place] prior to discharge. (2) CKD stage 4 due to type 2 diabetes mellitus: PLAN: creatinine 6 last admit. 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
[2021-03-19] MEDS: Insulin Lispro 100 UNIT/ML INSULN.PEN SC (13:34)
[2021-03-19 13:36] LABS: Bedside Glucose 173 mg/dL (70-110)
[2021-03-19] MEDS: 0.9% Normal Saline 1,000 ML 100 ML IV (13:37)
[2021-03-19] MEDS: 0.9% Saline Lock 10 ML Syringe IV (14:27)
[2021-03-19 16:35] LABS: Bedside Glucose 148 mg/dL (70-110)
[2021-03-19] MEDS: Heparin 10,000 UNITS/10 ML Vial IV (20:13)
--- NOTE | 2021-03-19 20:24 | DIALYSIS ---
Hemodialysis tx #2 today x 3 hours. No fluid removed/ran even. Tolerated well, stable t/o. CVC closed with heparin to each lumen fill volume and new CHG dressing applied. Report to Marissa MILAN
[2021-03-19 23:45] LABS: Bacteria 0 SEEN /hpf (None Seen); Mucous, Urine 0 SEEN /hpf (<or=2+); Squamous Epithelial Cells - UA 0 SEEN /hpf (0-5)
[2021-03-19 23:46] LABS: Color, Urine Yellow (Yellow); Glucose, Dipstick Normal (Normal); Ketone-Dipstick Negative (Negative); Leukocyte Esterase-Dipstick 500 /ul (Negative); Nitrite-Dipstick Negative (Negative); Occult Blood-Urine 250 /ul (Negative); Protein-Dipstick 100 mg/dl (Negative); Urine Bilirubin Dipstick Negative (Negative); Urine Clarity Turbid (Clear); Urine Urobilinogen Normal (Normal)
[2021-03-19 23:52] LABS: Red Blood Cells-Urine > 100 SEEN /hpf (0-5); White Blood Cells >100 SEEN /hpf (0-5)
[2021-03-20] VITALS (12 sets, daily range): BP systolic 106–145; BP diastolic 60–90; PULSE 99–120; RESP 16–20; TEMP 36.8–38.5; O2SAT 94–95
[2021-03-20 00:06] LABS: Bedside Glucose 134 mg/dL (70-110)
--- NOTE | 2021-03-20 00:08 | PCM.PN.BLA ---
Progress Note Patient with lucero catheter whose urine is said to be very cloudy. He has a temp of 100.5F. 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
[2021-03-20] MEDS: Ceftriaxone 1 GM/50 ML BAG IV ×2 (00:29→21:22)
[2021-03-20] MEDS: 0.9% Normal Saline 1,000 ML 100 ML IV (00:42)
[2021-03-20] MEDS: Ondansetron 4 MG/2 ML Vial IV (02:03)
[2021-03-20 04:45] LABS: Bedside Glucose 128 mg/dL (70-110)
[2021-03-20] MEDS: Acetaminophen 325 MG Tablet 650 MG PO (04:45)
[2021-03-20 05:56] LABS: Anion Gap 11 (5-15); BUN 67 mg/dL (7-18); BUN/Creat Ratio 9.8 RATIO (10-20); Chloride 103 mmol/L (98-107); Creatinine, Serum 6.82 mg/dL (0.70-1.30); EST Glomerular Filtration Rate 9 mL/min (>60); Est Glom Filt Rate - Afr Amer 11 mL/min (>60); Estimated Creatinine Clearance 11.96 ml/min; Glucose 113 mg/dL (74-106); Potassium 3.8 mmol/L (3.5-5.1); Sodium Level 137 mmol/L (136-145)
[2021-03-20 07:09] LABS: Absolute Lymphocyte Count 1.13 X10^3/uL (0.83-4.51); Absolute Neutrophil Count 8.5 X10^3/uL (2.0-7.7); Basophil# 0.04 X10^3/uL; Basophil% 0.3 % (0-1); Eosinophil# 0.11 X10^3/uL; Eosinophils% 0.9 % (0-5); Hematocrit 29.7 % (40-54); Hemoglobin 9.4 g/dL (13.0-16.5); Lymphocyte # 1.13 X10^3/ul (0.83-4.51); Lymphocyte % 9.6 % (19-41); Mean Corp Hgb Conc 31.6 g/dL (32-36); Mean Corpuscular Hgb 24.2 pg (27.0-32.0); Mean Corpuscular Volume 76.5 fL (80-94); Monocyte# 1.82 X10^3/uL; Monocyte% 15.4 % (0-10); NRBC Flagged by Analyzer 0.3 % (0-5); Neutrophil # 8.51 X10^3/uL (2.7-7.7); Neutrophil % 72.2 % (47-70); POSITIVE DIFFERENTIAL YES; POSITIVE MORPHOLOGY YES; Platelet Count 165 K/mm3 (150-450); RBC Distribution Width CV 19.6 % (11.6-14.6); RBC Distribution Width SD 52.9 fl (35.1-43.9); Red Blood Count 3.88 M/mm3 (4.6-6.2); White Blood Count 11.8 K/mm3 (4.4-11.0)
[2021-03-20 07:11] LABS: Differential Indicated SCAN CRITERIA MET
--- NOTE | 2021-03-20 08:58 | PCM.PN.HOSP ---
Subjective Subjective Developed fevers overnight, appeared to have a UTI was started on Rocephin, urine cultures are pending. Objective Data Objective Data Vital Signs: Vital Signs Temp Pulse Resp BP Pulse Ox 100.2 F H 112 H 20 H 106/74 94 03/20/21 08:25 03/20/21 08:25 03/20/21 08:25 03/20/21 08:25 03/20/21 08:25 Oxygen Flow Rate (L/min) 1 Oxygen Delivery Method Room Air Weight: 288 lb 12.889 oz Body Mass Index (BMI) 39.8 Intake & Output: Intake and Output for Last 24 Hours 03/19/21 03/20/21 03/21/21 03:59 03:59 03:59 Intake Total 1434.99 / 1434.99 2951.67 / 2951.67 1040 / 1040 Output Total 1550 / 1550 900 / 900 100 / 100 Balance -115.01 / -115.01 2051.67 / 2051.67 940 / 940 Medical Nutrition Assessment Dietitian: Nutrition Therapy Diagnosis Start: 03/18/21 09:54 Freq: Status: Active Protocol: Document 03/18/21 12:37 RMA (Rec: 03/18/21 12:37 RMA [id number]) Nutrition Malnutrition Evidence of Malnutrition Exists No Intake Problem Inadequate Oral Intake Etiology related to altered GI function /inflammation Signs/Symptoms as evidenced by NPO status. Status Active Problem Clinical Problem Altered Nutrient-Related Laboratory Values Etiology related to renal dysfunction/ CHANTALE on CKD stage 4 Signs/Symptoms as evidenced by BUN 179, Creat 12.80, K+ 6.3 Status Active Problem Recommendation Dietitian Recommendations/Changes Continue NPO until medically able to advance diet as tolerated to 2200 calorie/ Carbohydrate-Controlled/Renal with protein restriction. Diet education as appropriate. ONS only if PO fails at meals. Parenteral nutrition support if unable to advance PO nutrition in 24-72 hours. Lab / Micro Data Result Diagrams: 03/20/21 05:16 03/20/21 05:16 Labs: Laboratory Results - last 24 hr 03/19/21 13:30: POC Glucose 173 H 03/19/21 16:32: POC Glucose 148 H 03/19/21 22:30: Urine Color Yellow, Urine Clarity Turbid, Urine pH 6.0, Ur Specific [place] 1.020, Urine Protein 100 H, Urine Glucose (UA) Normal, Urine Ketones Negative, Urine Occult Blood 250 H, Urine Nitrite Negative, Urine Bilirubin Negative, Urine Urobilinogen Normal, Ur Leukocyte Esterase 500 H, Urine RBC > 100 SEEN, Urine WBC >100 SEEN, Ur Squamous Epith Cells 0 SEEN, Urine Bacteria 0 SEEN, Urine Mucus 0 SEEN 03/20/21 00:03: POC Glucose 134 H 03/20/21 04:41: POC Glucose 128 H 03/20/21 05:16: WBC 11.8 H, RBC 3.88 L, Hgb 9.4 L, Hct 29.7 L, MCV 76.5 L, MCH 24.2 L, MCHC 31.6 L, RDW Std Deviation 52.9 H, RDW Coeff of Jeffrey 19.6 H, Plt Count 165, Immature Gran % (Auto) 1.600 H, Neut % (Auto) 72.2 H, Lymph % (Auto) 9.6 L, [place] % (Auto) 15.4 H, Eos % (Auto) 0.9, Baso % (Auto) 0.3, Absolute Neuts (auto) 8.5 H, Absolute Lymphs (auto) 1.13, Nucleated RBC % 0.3, Diff Path Review December03/20/21 05:16: Sodium 137, Potassium 3.8, Chloride 103, Carbon Dioxide 23.0, Anion Gap 11, BUN 67 H, Creatinine 6.82 H, Estim Creat Clear Calc 11.96, Est GFR (MDRD) Af Amer 11 L, Est GFR (MDRD) Non-Af 9 L, BUN/Creatinine Ratio 9.8 L, Glucose 113 H, Calcium 8.0 L Micro: Microbiology 03/18/21 12:55 Mucosa - Nose SARS-CoV-2 Antigen (Rapid) - Final Physical Exam Const alert, oriented x3 and no apparent distress General Appearance: cooperative HEENT normocephalic and moist oral mucous membranes Eyes PERRL, EOMs intact bilaterally and conjunctivae normal Neck supple and no JVD Resp normal respiratory effort, no retractions, no use of accessory muscles and clear to auscultation bilaterally Auscultation: Negative for crackles, rales, rhonchi or wheezes Cardio regular rate, regular rhythm, S1 normal heart sound, S2 normal heart sound and no murmurs GI soft to palpation, non-tender and non-distended; Negative for hepatosplenomegaly Extremity no clubbing, cyanosis or edema Skin no rashes or lesions noted Neuro no focal motor deficits and no sensory deficits noted Psych affect normal Appearance: appropriate Assessment & Plan Assessment/Plan (1) Acute pancreatitis: QUALIFIERS: Pancreatitis type: unspecified pancreatitis type Acute pancreatitis complication: unspecified Qualified Code(s): K85.90 - Acute pancreatitis without necrosis or infection, unspecified (2) CHANTALE (acute kidney injury): (3) Hydronephrosis concurrent with and due to calculi of kidney and ureter: (4) Hyperkalemia: PLAN: 1. Acute pancreatitis w/ abdominal pain, N/V: Will admit to Admission lipase 1405, LFTs not marked appearing, maintain on aggressive IVFs, NPO, IV PPI, IV/po pain control, trend lipase, CMP. Will obtain RUQ US although no marked findings on CT, FLP, further assess for EtOH consumption risk as etiology for pancreatitis. 03/19/2021: Right upper quadrant ultrasound is unremarkable, can advance diet to renal diet this low-fat Resolved 2. CHANTALE on Chronic Kidney Disease Stage IV/hyperkalemia: Admission BUN/Cr 27/13.10, baseline renal function most recently 6-7, last 02/27/2021 creatinine 6.71, will continue to aggressively hydrate cautiously monitoring for volume overload given underlying cardiac disease, repeat CMP in a.m., suspected prerenal etiology given significant GI losses, consult nephrology. Requested UFeNa. Patient with recent evaluation 02/22/2021 with general surgery, Dr. Moya for AVF initiation. Will consult Dr. Chavez with whom he has seen prior. 03/18/2021: Consult to general surgery for placement of a tunneled catheter, will undergo dialysis for the next 2 days 03/20/2021: Continue with dialysis, creatinine is much improved today. 3. Incidentally noted bilateral hydronephrosis and hydroureter: CT abdomen pelvis with significant hydronephrosis bilaterally with some thinning of the renal cortices suggestive of atrophy, left more than right likely secondary to chronic hydronephrosis, a very large right-sided staghorn calculus as well as small several stones in the distal right ureter with no distinct stone along the left ureter although there is bilateral hydroureter, reportedly cannot exclude posterior urinary bladder mass with recommended follow-up with urology. Noted prior renal US w/ BL nonobstructing renal calculi and multiple cysts, mild to moderate left hydronephrosis, potentially worsening. Will request consultation with Dr. Sow. 4. Leukocytosis, suspect reactive: Admission CBC with WBC 15.5 with left shift and lymphopenia, given ongoing intractable nausea and vomiting suspect significant dehydration, will continue to aggressively hydrate, treat #1, trend CBC. 03/20/2021: Leukocytosis is improving, however he spiked a fever overnight, started on Rocephin and the UA appears to have acute UTI despite no urine bacteria. Urine cultures pending 5. Chronic diastolic CHF/Nonischemic cardiomyopathy: We will continue aspirin, Coreg, not on statin therapy, diuretic or STACY inhibitor/ARB likely secondary to renal disease. Cautiously monitored IV fluid administration. 12/24/2018 echocardiogram with EF 55%, mildly enlarged LA, compared to prior echocardiogram EF improved from 20% to 55%. 6. Hx NSVTP: s/p AICD placement, recent 03/15/2021 ICD assessment. 7. Diabetes mellitus type II: Hold oral home regimen, given presentation will be admitted n.p.o. status, maintain every 6 hour accu checks w/ ISS. 8. Hypertension: Continue home regimen including amlodipine, Coreg with hold parameters, PRN hydralazine. 9. Hyperlipidemia: Not on statin therapy, defer to outpatient. 10. BPH: We will continue patient on Flomax regimen. 11 chronic anemia, AOCD, iron deficiency anemia: Admission hemoglobin 11.8, previously 02/27/2021 hemoglobin 10, continue iron supplementation, trend CBC. 12. Obesity: Weight loss and lifestyle changes encouraged. 13. RAQUEL: Continue CPAP nightly if amenable. Disposition: PT/OT evaluation for possible placement. 14. DVT prophylaxis: SCDs, heparin. Charges/Coding Visit Charges Inpatient E&M: 34544 Subs Hosp L2
[2021-03-20] MEDS: 0.9% Normal Saline 1,000 ML 150 ML IV ×3 (09:44→22:17)
[2021-03-20] MEDS: Latanoprost 0.005% 1 Bottle 1 DRP EACH EYE (09:45)
[2021-03-20] MEDS: Heparin Injection (Vial) 5,000 UNIT/ML VIAL 5000 UNIT SC ×2 (09:45→21:19)
--- NOTE | 2021-03-20 09:51 | PN.RENAL_ITS ---
Subjective Subjective seen on dialysis, tachycardic with low grade fever. BP stable. Still with anorexia, no nausea, vomiting, SOB. Urine output dropped overnight. Objective Data Objective Data Vital Signs: Vital Signs Temp Pulse Resp BP Pulse Ox 100.2 F H 112 H 20 H 106/74 94 03/20/21 08:25 03/20/21 08:25 03/20/21 08:25 03/20/21 08:25 03/20/21 08:25 Oxygen Flow Rate (L/min) 1 Oxygen Delivery Method Room Air Weight: 131 kg Body Mass Index (BMI) 39.8 Intake & Output: Intake and Output for Last 24 Hours 03/18/21 03/19/21 03/20/21 23:59 23:59 23:59 Intake Total 2464.99 / 2464.99 1881.67 / 1881.67 2325 / 2325 Output Total 1250 / 1550 1100 / 1100 200 / 200 Balance 1214.99 / 914.99 781.67 / 781.67 212 / 212 Medical Nutrition Assessment Dietitian: Nutrition Therapy Diagnosis Start: 03/18/21 09:54 Freq: Status: Active Protocol: Document 03/18/21 12:37 RMA (Rec: 03/18/21 12:37 RMA [id number]) Nutrition Malnutrition Evidence of Malnutrition Exists No Intake Problem Inadequate Oral Intake Etiology related to altered GI function /inflammation Signs/Symptoms as evidenced by NPO status. Status Active Problem Clinical Problem Altered Nutrient-Related Laboratory Values Etiology related to renal dysfunction/ CHANTALE on CKD stage 4 Signs/Symptoms as evidenced by BUN 179, Creat 12.80, K+ 6.3 Status Active Problem Recommendation Dietitian Recommendations/Changes Continue NPO until medically able to advance diet as tolerated to 2200 calorie/ Carbohydrate-Controlled/Renal with protein restriction. Diet education as appropriate. ONS only if PO fails at meals. Parenteral nutrition support if unable to advance PO nutrition in 24-72 hours. Lab / Micro Data Result Diagrams: 03/20/21 05:16 03/20/21 05:16 Labs: Laboratory Results - last 24 hr 03/19/21 13:30: POC Glucose 173 H 03/19/21 16:32: POC Glucose 148 H 03/19/21 22:30: Urine Color Yellow, Urine Clarity Turbid, Urine pH 6.0, Ur Specific [place] 1.020, Urine Protein 100 H, Urine Glucose (UA) Normal, Urine Ketones Negative, Urine Occult Blood 250 H, Urine Nitrite Negative, Urine Bilirubin Negative, Urine Urobilinogen Normal, Ur Leukocyte Esterase 500 H, Urine RBC > 100 SEEN, Urine WBC >100 SEEN, Ur Squamous Epith Cells 0 SEEN, Urine Bacteria 0 SEEN, Urine Mucus 0 SEEN 03/20/21 00:03: POC Glucose 134 H 03/20/21 04:41: POC Glucose 128 H 03/20/21 05:16: WBC 11.8 H, RBC 3.88 L, Hgb 9.4 L, Hct 29.7 L, MCV 76.5 L, MCH 24.2 L, MCHC 31.6 L, RDW Std Deviation 52.9 H, RDW Coeff of [place] 19.6 H, Plt Count 165, Immature Gran % (Auto) 1.600 H, Neut % (Auto) 72.2 H, Lymph % (Auto) 9.6 L, [place] % (Auto) 15.4 H, Eos % (Auto) 0.9, Baso % (Auto) 0.3, Absolute Neuts (auto) 8.5 H, Absolute Lymphs (auto) 1.13, Nucleated RBC % 0.3, Diff Path Review December03/20/21 05:16: Sodium 137, Potassium 3.8, Chloride 103, Carbon Dioxide 23.0, Anion Gap 11, BUN 67 H, Creatinine 6.82 H, Estim Creat Clear Calc 11.96, Est GFR (MDRD) Af Amer 11 L, Est GFR (MDRD) Non-Af 9 L, BUN/Creatinine Ratio 9.8 L, Glucose 113 H, Calcium 8.0 L Micro: Microbiology 03/18/21 12:55 Mucosa - Nose SARS-CoV-2 Antigen (Rapid) - Final Physical Exam Const alert and oriented x3 HEENT normocephalic and TM's normal bilaterally Resp clear to auscultation bilaterally Cardio regular rate and no rub GI non-tender and non-distended Palpation: soft Bladder / Kidney Exam: catheter in place Extremity no clubbing, cyanosis or edema Skin no wounds Neuro Sensorium / Orientation: awake and alert Psych cooperative Assessment & Plan Assessment/Plan (1) Acute on chronic renal failure: QUALIFIERS: Acute renal failure type: unspecified Chronic kidney disease stage: stage 5, not on chronic dialysis Qualified Code(s): N17.9 - Acute kidney failure, unspecified; N18.5 - Chronic kidney disease, stage 5 PLAN: dialysis #3 today. Next dialysis Thursday. (2) CKD stage 4 due to type 2 diabetes mellitus: PLAN: creatinine 6 last admit. (3) Hyperkalemia: PLAN: resolved (4) Acute pancreatitis: PLAN: continue iv fluids, increase rate for tachycardia, fever, dehydration (5) Hydronephrosis concurrent with and due to calculi of kidney and ureter: PLAN: referral (6) Diabetes mellitus, type II: QUALIFIERS: Diabetes mellitus residential insulin use: unspecified residential insulin use status Diabetes mellitus complication status: with skin complications Diabetes mellitus complication detail: with other skin ulcer Qualified Code(s): E11.622 - Type 2 diabetes mellitus with other skin ulcer; L98.499 - Non-pressure chronic ulcer of skin of other sites with unspecified severity (7) Essential (primary) hypertension: PLAN: holding BP medications (8) Anemia: PLAN: hgb stable (9) Metabolic acidosis: PLAN: resolved with dialysis. (10) Secondary hyperparathyroidism (of renal origin): (11) Fever: PLAN: await cx, on iv antibx
[2021-03-20 11:26] LABS: Bedside Glucose 118 mg/dL (70-110)
[2021-03-20 11:54] LABS: Hepatitis B Core Ab Total Negative (Negative)
[2021-03-20] MEDS: Heparin 10,000 UNITS/10 ML Vial 3200 UNITS IV (12:22)
--- NOTE | 2021-03-20 12:30 | DIALYSIS ---
HD x 3.5 hours complete. Tolerated tx well. Ran on 3k bath. No fluid removed. Used right chest wall dialysis catheter. Catheter is positional. Dr. Chavez is aware. Lumens closed with heparin per fill volume. Caps placed. Dressing is intact. Report was given to KAYLI Hilario.
[2021-03-20 12:35] LABS: Pathologist Review Reviewed
[2021-03-20 12:36] LABS: Pathologist Review Reviewed
--- NOTE | 2021-03-20 12:51 | CASEMGMT ---
Call to [facility] for update on OP dialysis set up and this RN CM left message for them to call this RN CM back. Notes for last 2 dialysis runs faxed to [facility]. Theron MILAN CM
[2021-03-20] MEDS: Allopurinol 300 MG Tablet 150 MG PO (13:01)
[2021-03-20] MEDS: Tamsulosin HCl 0.4 MG Capsule PO (13:01)
[2021-03-20] MEDS: Calcium Acetate 667 MG Capsule PO ×2 (13:01→17:38)
--- NOTE | 2021-03-20 13:07 | CASEMGMT ---
KAYLI MAYERS NOTE: Pt qualifies for a Palliative referral per the [facility] palliative screening tool at this time. Dr Null aware and states ok for Palliative c/s at this time. Order placed. Call placed to Sangeeta @ [facility] and she was updated on referral at this time. Face Sheet faxed to Palliative at this time. Claudette HICKS RN CM
--- NOTE | 2021-03-20 13:33 | CASEMGMT ---
Call from Amina at [facility] and she states that pt has been financially/medically approved to start at [facility] with a MWF schedule at 1700. Per therapy, pt would benefit from SNF placement and Franko ARVIZU aware, voices understanding and into room to speak with pt. CM to follow. Theron MILAN CM
--- NOTE | 2021-03-20 14:37 | CASEMGMT ---
Social Work Consult: Placement Referral source: RN RIANA Met with patient in room. Introduced self and social security benefits interviewer role. Patient is agreeable to speak with this social security benefits interviewer. This social security benefits interviewer initiated conversation in regards to discharge planning. Patient reports to feel weak and is requesting to transition to a long term facility for further strengthening and endurance. Therapy also recommending for patient to transition to a long term home. Patient does live alone. Patient request for referral to be made to [facility] first and then [facility] third choice. Telephone call to Marysol EDMONDS. Voicemail left[facility] to be able to look over referral. Dina does confirm to able to transport patient to dialysis in [place]. Clinical information faxed. Will continue to follow. Franko NIELSON, ROSALIE
--- NOTE | 2021-03-20 15:15 | CASEMGMT ---
Social Work Telephone call from [facility]. Letcher reports to also transport for Dialysis and to be able to review clinicals. Clinical information faxed. Will continue to follow. Franko NIELSON, ROSALIE
[2021-03-20 16:36] LABS: Bedside Glucose 126 mg/dL (70-110)
--- NOTE | 2021-03-20 17:09 | PCM.CONS.P ---
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 mcc insulin use status Qualified Code(s): E11.622 - Type 2 diabetes mellitus with other skin ulcer; L98.499 - Non-pressure chronic ulcer of skin of other sites with unspecified severity (6) Acute pancreatitis: QUALIFIERS: Acute pancreatitis complication: unspecified Pancreatitis type: unspecified pancreatitis type Qualified Code(s): K85.90 - Acute pancreatitis without necrosis or infection, unspecified (7) Hydronephrosis concurrent with and due to calculi of kidney and ureter: (8) Hyperkalemia: (9) Fever: QUALIFIERS: Fever type: unspecified Qualified Code(s): R50.9 - Fever, unspecified (10) Implantable cardioverter-defibrillator (ICD) in situ: (11) Non-ischemic cardiomyopathy: (12) Left bundle branch block (LBBB): (13) Nonsustained ventricular tachycardia: (14) Chronic diastolic (congestive) heart failure: (15) Essential (primary) hypertension: (16) HLD (hyperlipidemia): QUALIFIERS: Hyperlipidemia type: unspecified Qualified Code(s): E78.5 - Hyperlipidemia, unspecified PLAN: 60-year-old male with acute on chronic renal failure, found to have significant hydronephrosis. Temporary dialysis catheter was placed and he is on day 3 of HD. Seen today for palliative care consultation regarding his chronic comorbid conditions and for supportive care when he is discharged home, especially in light of new HD. 1. CKD with new HD: Unclear if he will have return of his renal function, however has been progressively worsening since 2017. In January and February 2021, creatinine was between [address] Chavez has seen him in the past and has been consulted, probable long-term dialysis. We can help manage symptoms associated with fluid volume overload given his concurrent CHF and CKD diagnoses. No recommendations at this time as he is in the acute phase. We will follow as outpatient. 2. Type 2 diabetes/anemia/nonischemic cardiomyopathy/chronic diastolic CHF/HTN/HLD/recent fever//metabolic acidosis/acute pancreatitis (resolved): Complicates overall care, management, recovery, and prognosis. Management per PCP and specialists. Patient does not seem to have a good understanding of his chronic conditions. Some education was provided but he was quite distracted during my evaluation. Thank you for the opportunity to participate in this patient's care, please do not hesitate to contact [facility] with any further questions or concerns. Palliative direct line is [phone]. We will follow up after discharge and will discuss palliative services further at that time. Greater than 50% of F2F visit dedicated to education and counseling of palliative care services, medications, comorbid conditions and potential assistance with management, and plan of care moving forward. Start time: 1707 End time: 1740 HPI Consult Data Date of Consult: 03/20/21 HPI Narrative HPI Narrative: JUVENCIO QUINTERO, is a 60 M who presents to [facility] [place] 03/18/2021 with complaints of intractable nausea and vomiting and abdominal pain. He did have a nonproductive cough and chest discomfort, as well as epigastric discomfort. He did have an elevated white count in the ED and potassium was 6.6. Also was in acute renal failure with BUN of 187 and creatinine 13.1. His lipase was elevated. CT the abdomen and pelvis showed significant hydronephrosis bilaterally with some thinning of the renal cortices suggestive of atrophy, left more than right, likely secondary to chronic hydronephrosis. There was a very large right-sided staghorn calculus as well as several small stones in the distal right ureter. Report could not exclude a posterior urinary bladder mass and had recommended follow-up with urology. Dr. Sow was consulted and recommended and inserting Barnes catheter and watch creatinine. He was also seen by general surgery, Dr. Shabazz for tunneled dialysis catheter placement. Nephrology consult 03/18 recommended initiating dialysis with tunneled catheter for severe metabolic acidosis and uremic symptoms. Patient's creatinine last admit was 6. He was given Kayexalate for hyperkalemia. Also given IV fluids for acute pancreatitis. He was placed on a bicarb drip. Gallbladder ultrasound showed right renal stones measuring up to 1.9 cm and moderate right hydronephrosis. There is a hyperechoic right kidney with cortical thickening consistent with medical renal disease. The gallbladder appeared normal. Patient did develop a fever last night and appeared to have a UTI, he was started on IV antibiotics and a urine culture was sent. Patient is on day 3 of dialysis today, his next scheduled dialysis will be this upcoming Thursday. Patient reports recent nausea and vomiting, however nothing currently or chronically. No abdominal pain. No diarrhea or constipation. No shortness of breath or chest pain, other than when he exerts himself too much. He denies any current dysuria. Denies dizziness or syncope. No vision changes. He is wearing glasses. His main concern is having to go to detention facility for rehab, he feels like they are not going to let him return home. He is also concerned about going home to get close prior to going to the detention facility. He keeps referring back to this during our entire conversation. He does have some lower extremity edema. Complains of dry mouth. Patient states he has a home health aide on Tuesdays and for 3 h/day. [facility] Medical History Acute on chronic renal failure Benign prostatic hyperplasia Chronic diastolic (congestive) heart failure Chronic kidney disease, stage 4 (severe) CKD (chronic kidney disease), stage III Diabetes mellitus, type II Essential (primary) hypertension Falls frequently HLD (hyperlipidemia) Hyperosmolar non-ketotic state in patient with type 2 diabetes mellitus Implantable cardioverter-defibrillator (ICD) in situ Iron deficiency anemia Left bundle branch block (LBBB) Mitral valve regurgitation Morbid obesity Non-ischemic cardiomyopathy Nonsustained ventricular tachycardia RAQUEL (obstructive sleep apnea) Primary cardiomyopathy Right foot drop Venous ulcer of left lower extremity without varicose veins Home Medications allopurinol 150 mg PO DAILY 01/27/16 [History Last Taken 01/24/21] linagliptin 5 mg PO DAILY 08/05/17 [History Last Taken 01/24/21] ammonium lactate 1 applicatio TP DAILY PRN PRN 12/23/18 [History Last Taken 01/24/21] latanoprost 1 drp EACH EYE DAILY 12/23/18 [History Last Taken 01/23/21] tamsulosin 0.4 mg capsule 0.4 mg PO DAILY 06/21/19 [History Last Taken 01/24/21] amlodipine 10 mg PO DAILY 01/24/21 [History Last Taken 01/24/21] ferrous sulfate 325 mg PO BID #14 tab 01/28/21 [Rx Last Taken Unknown] carvedilol 25 mg tablet 37.5 mg PO BID tab 02/27/21 [History Last Taken Unknown] Allergy/AdvReac Type Severity Reaction Status Date / Time No Known Allergies Allergy Verified 03/17/21 23:50 Family History Father Hypertension Heart disease Diabetes Mother Diabetes Chronic kidney disease Hypertension Anemia Surgical History H/O skin graft Hx of appendectomy Status post tonsillectomy and adenoidectomy Social History household members: none Smoking Status: Never smoker alcohol intake: never substance use type: does not use caffeine: Yes ROS ROS Narrative Review of systems otherwise negative from a constitutional, HEENT, respiratory, cardiovascular, GI, genitourinary, musculoskeletal, skin, neurologic, psychiatric and hematologic system unless stated above. Physical Exam Const alert, oriented x3 and no apparent distress Constitutional Narrative: Morbidly obese General Appearance: cooperative and appears older than stated age HEENT normocephalic and head/scalp atraumatic Neck supple Neck Narrative: Large neck circumference General: trachea midline Resp normal respiratory effort Effort and Inspection: able to speak in complete sentences Auscultation: clear to auscultation bilaterally and diminished lung sounds Cardio regular rate, regular rhythm, S1 normal heart sound and S2 normal heart sound GI normal to inspection, nondistended, normoactive bowel sounds GI Narrative: Obesity distention Bladder / Kidney Exam: catheter in place Extremity General Extremity: edema; Negative for clubbing or cyanosis Skin no rashes or lesions noted Skin Narrative: Lips are dry and peeling Neuro CN's II-XII intact bilaterally and no focal motor deficits Sensorium / Orientation: somnolent Psych cooperative Speech: normal speech Mood & Affect: flat affect
[2021-03-20 21:30] LABS: Bedside Glucose 121 mg/dL (70-110)
[2021-03-21] VITALS (9 sets, daily range): BP systolic 126–141; BP diastolic 51–89; PULSE 90–107; RESP 16–20; TEMP 36.7–37.6; O2SAT 95–97
[2021-03-21] MEDS: 0.9% Normal Saline 1,000 ML 150 ML IV (05:06)
[2021-03-21 05:16] LABS: Bedside Glucose 108 mg/dL (70-110)
--- NOTE | 2021-03-21 05:20 | NURSING ---
bladder scanned for 129ml at 0520
[2021-03-21 07:17] LABS: Anion Gap 12 (5-15); BUN 39 mg/dL (7-18); BUN/Creat Ratio 8.3 RATIO (10-20); Chloride 106 mmol/L (98-107); EST Glomerular Filtration Rate 14 mL/min (>60); Est Glom Filt Rate - Afr Amer 16 mL/min (>60); Estimated Creatinine Clearance 17.36 ml/min; Glucose 103 mg/dL (74-106); Potassium 3.6 mmol/L (3.5-5.1); Sodium Level 140 mmol/L (136-145)
--- NOTE | 2021-03-21 08:40 | PN.RENAL_ITS ---
Subjective Subjective occasional dry cough. No nausea, tolerating diet. No abdominal pain. Lucero removed Objective Data Objective Data Vital Signs: Vital Signs Temp Pulse Resp BP Pulse Ox 98.2 F 101 H 18 126/77 H 95 03/21/21 03:10 03/21/21 07:00 03/21/21 03:10 03/21/21 03:10 03/21/21 07:28 Oxygen Flow Rate (L/min) 1 Oxygen Delivery Method Room Air Weight: 132.3 kg Body Mass Index (BMI) 39.8 Intake & Output: Intake and Output for Last 24 Hours 03/19/21 03/20/21 03/21/21 23:59 23:59 23:59 Intake Total 1881.67 / 1881.67 5142.50 / 5142.50 1000 / 1000 Output Total 1100 / 1100 500 / 500 0 / 0 Balance 781.67 / 781.67 4642.50 / 4642.50 1000 / 1000 Medical Nutrition Assessment Dietitian: Nutrition Therapy Diagnosis Start: 03/18/21 09:54 Freq: Status: Active Protocol: Document 03/20/21 14:26 RMA (Rec: 03/20/21 14:26 RMA [id number]) Nutrition Malnutrition Evidence of Malnutrition Exists No Intake Problem Inadequate Oral Intake Etiology related to decreased appetite/ CKD Signs/Symptoms as evidenced by less than 50% intake at meals Status Active Problem Clinical Problem Altered Nutrient-Related Laboratory Values Etiology related to renal dysfunction/ CHANTALE on CKD stage 5 Signs/Symptoms as evidenced by BUN 67, Creat 6.82 Status Active Problem Recommendation Dietitian Recommendations/Changes Will change diet to renal; no protein restriction. Will add 120ml Nepro TID w/ meals. Lab / Micro Data Result Diagrams: 03/20/21 05:16 03/21/21 06:48 Labs: Laboratory Results - last 24 hr 03/18/21 : Hep B Core Total Ab Negative 03/19/21 06:10: Diff Path Review Reviewed 03/20/21 05:16: Diff Path Review Reviewed 03/20/21 10:54: POC Glucose 118 H 03/20/21 16:25: POC Glucose 126 H 03/20/21 21:17: POC Glucose 121 H 03/21/21 05:07: POC Glucose 108 03/21/21 06:48: Sodium 140, Potassium 3.6, Chloride 106, Carbon Dioxide 22.0, Anion Gap 12, BUN 39 H, Creatinine 4.70 H, Estim Creat Clear Calc 17.36, Est GFR (MDRD) Af Amer 16 L, Est GFR (MDRD) Non-Af 14 L, BUN/Creatinine Ratio 8.3 L, Glucose 103, Calcium 8.0 L Micro: Microbiology 03/18/21 12:55 Mucosa - Nose SARS-CoV-2 Antigen (Rapid) - Final Physical Exam Const alert and oriented x3 Resp clear to auscultation bilaterally Cardio regular rate GI non-tender and non-distended GI Narrative: obese Palpation: soft Extremity no clubbing, cyanosis or edema Assessment & Plan Assessment/Plan (1) Acute on chronic renal failure: QUALIFIERS: Acute renal failure type: unspecified Chronic kidney disease stage: stage 5, not on chronic dialysis Qualified Code(s): N17.9 - Acute kidney failure, unspecified; N18.5 - Chronic kidney disease, stage 5 PLAN: Next dialysis Thursday. May likely be ESRD. Will check creatinine in am. (2) CKD stage 5 due to type 2 diabetes mellitus: (3) Hyperkalemia: PLAN: resolved (4) Acute pancreatitis: PLAN: dc iv fluids, tolerating diet (5) Hydronephrosis concurrent with and due to calculi of kidney and ureter: PLAN: referral, lucero removed (6) Diabetes mellitus, type II: QUALIFIERS: Diabetes mellitus manager intermediate insulin use: unspecified skilled nursing insulin use status Diabetes mellitus complication status: with skin complications Diabetes mellitus complication detail: with other skin ulcer Qualified Code(s): E11.622 - Type 2 diabetes mellitus with other skin ulcer; L98.499 - Non-pressure chronic ulcer of skin of other sites with unspecified severity (7) Essential (primary) hypertension: PLAN: holding BP medications (8) Anemia: PLAN: hgb stable (9) Metabolic acidosis: PLAN: resolved with dialysis. (10) Secondary hyperparathyroidism (of renal origin): (11) Fever: QUALIFIERS: Fever type: unspecified Qualified Code(s): R50.9 - F ever, unspecified PLAN: await cx, on iv antibx (12) Hyperphosphatemia: PLAN: start binders
--- NOTE | 2021-03-21 09:36 | CASEMGMT ---
Social Work Telephone call to [facility]. No answer. Voicemail left inquiring about status of referral. This mental health social worker communicated in voicemail that [facility] is patient preferred facility and requested for pre-cert to be started if [facility] is accepting. Will continue to follow. Franko NIELSON, JACIS
[2021-03-21] MEDS: Heparin Injection (Vial) 5,000 UNIT/ML VIAL 5000 UNIT SC ×2 (10:53→21:00)
[2021-03-21] MEDS: Allopurinol 300 MG Tablet 150 MG PO (10:53)
[2021-03-21] MEDS: Calcium Acetate 667 MG Capsule PO ×2 (10:53→18:37)
[2021-03-21] MEDS: Tamsulosin HCl 0.4 MG Capsule PO (10:53)
--- NOTE | 2021-03-21 11:00 | CASEMGMT ---
Social Work Telephone call from [facility]. [place] reports that patient has been declined due to transportation to dialysis. [facility]. Voicemail left to begin pre-cert. Will continue to follow. Franko NIELSON, ROSALIE
[2021-03-21 11:35] LABS: Bedside Glucose 105 mg/dL (70-110)
--- NOTE | 2021-03-21 11:46 | PN.HOSP_ITS ---
Subjective Subjective Doing well, feels a little bit better than yesterday after his 3rd round of dialysis. He is weak and PT recommends for safety to he go to a assisted Objective Data Objective Data Vital Signs: Vital Signs Temp Pulse Resp BP Pulse Ox 98.2 F 107 H 20 H 141/89 H 96 03/21/21 09:00 03/21/21 09:00 03/21/21 09:00 03/21/21 10:50 03/21/21 09:00 Oxygen Flow Rate (L/min) 1 Oxygen Delivery Method Room Air Weight: 291 lb 10.745 oz Body Mass Index (BMI) 39.8 Intake & Output: Intake and Output for Last 24 Hours 03/20/21 03/21/21 03/22/21 03:59 03:59 03:59 Intake Total 2951.67 / 2951.67 4072.50 / 4072.50 1690 / 1690 Output Total 900 / 900 400 / 400 0 / 0 Balance 2051.67 / 1.67 3672.50 / 3672.50 1690 / 1690 Medical Nutrition Assessment Dietitian: Nutrition Therapy Diagnosis Start: 03/18/21 09:54 Freq: Status: Active Protocol: Document 03/20/21 14:26 RMA (Rec: 03/20/21 14:26 RMA [id number]) Nutrition Malnutrition Evidence of Malnutrition Exists No Intake Problem Inadequate Oral Intake Etiology related to decreased appetite/ CKD Signs/Symptoms as evidenced by less than 50% intake at meals Status Active Problem Clinical Problem Altered Nutrient-Related Laboratory Values Etiology related to renal dysfunction/ CHANTALE on CKD stage 5 Signs/Symptoms as evidenced by BUN 67, Creat 6.82 Status Active Problem Recommendation Dietitian Recommendations/Changes Will change diet to renal; no protein restriction. Will add 120ml Nepro TID w/ meals. Lab / Micro Data Result Diagrams: 03/20/21 05:16 03/21/21 06:48 Labs: Laboratory Results - last 24 hr 03/18/21 : Hep B Core Total Ab Negative 03/19/21 06:10: Diff Path Review Reviewed 03/20/21 05:16: Diff Path Review Reviewed 03/20/21 16:25: POC Glucose 126 H 03/20/21 21:17: POC Glucose 121 H 03/21/21 05:07: POC Glucose 108 03/21/21 06:48: Sodium 140, Potassium 3.6, Chloride 106, Carbon Dioxide 22.0, Anion Gap 12, BUN 39 H, Creatinine 4.70 H, Estim Creat Clear Calc 17.36, Est GFR (MDRD) Af Amer 16 L, Est GFR (MDRD) Non-Af 14 L, BUN/Creatinine Ratio 8.3 L, Glucose 103, Calcium 8.0 L 03/21/21 11:22: POC Glucose 105 Micro: Microbiology 03/19/21 22:30 Urine Catheter - Barnes Urine Culture - Preliminary Gram negative silvia 03/18/21 12:55 Mucosa - Nose SARS-CoV-2 Antigen (Rapid) - Final Physical Exam Const alert, oriented x3 and no apparent distress General Appearance: cooperative HEENT normocephalic and moist oral mucous membranes Eyes PERRL, EOMs intact bilaterally and conjunctivae normal Neck supple and no JVD Resp normal respiratory effort, no retractions, no use of accessory muscles and clear to auscultation bilaterally Auscultation: Negative for crackles, rales, rhonchi or wheezes Cardio regular rate, regular rhythm, S1 normal heart sound, S2 normal heart sound and no murmurs GI soft to palpation, non-tender and non-distended; Negative for hepatosplenomegaly Extremity no clubbing, cyanosis or edema Skin no rashes or lesions noted Neuro no focal motor deficits and no sensory deficits noted Psych affect normal Appearance: appropriate Assessment & Plan Assessment/Plan (1) Acute pancreatitis: QUALIFIERS: Acute pancreatitis complication: unspecified Pancreatitis type: unspecified pancreatitis type Qualified Code(s): K85.90 - Acute pancreatitis without necrosis or infection, unspecified (2) CHANTALE (acute kidney injury): (3) Hydronephrosis concurrent with and due to calculi of kidney and ureter: (4) Hyperkalemia: PLAN: 1. Acute pancreatitis w/ abdominal pain, N/V: Will admit to Admission lipase 1405, LFTs not marked appearing, maintain on aggressive IVFs, NPO, IV PPI, IV/po pain control, trend lipase, CMP. Will obtain RUQ US although no marked findings on CT, FLP, further assess for EtOH consumption risk as etiology for pancreatitis. 03/19/2021: Right upper quadrant ultrasound is unremarkable, can advance diet to renal diet this low-fat Resolved 2. CHANTALE on Chronic Kidney Disease Stage IV/hyperkalemia: Admission BUN/Cr 27/13.10, baseline renal function most recently 6-7, last 02/27/2021 creatinine 6.71, will continue to aggressively hydrate cautiously monitoring for volume overload given underlying cardiac disease, repeat CMP in a.m., suspected prerenal etiology given significant GI losses, consult nephrology. Requested UFeNa. Patient with recent evaluation 02/22/2021 with general surgery, Dr. Moya for AVF initiation. Will consult Dr. Chavez with whom he has seen prior. 03/18/2021: Consult to general surgery for placement of a tunneled catheter, will undergo dialysis for the next 2 days 03/20/2021: Continue with dialysis, creatinine is much improved today. 03/21/2021: Continue with dialysis 3. Incidentally noted bilateral hydronephrosis and hydroureter: CT abdomen pelvis with significant hydronephrosis bilaterally with some thinning of the renal cortices suggestive of atrophy, left more than right likely secondary to chronic hydronephrosis, a very large right-sided staghorn calculus as well as small several stones in the distal right ureter with no distinct stone along the left ureter although there is bilateral hydroureter, reportedly cannot exclude posterior urinary bladder mass with recommended follow-up with urology. Noted prior renal US w/ BL nonobstructing renal calculi and multiple cysts, mild to moderate left hydronephrosis, potentially worsening. Will request consultation with Dr. Sow. 4. Leukocytosis possible UTI: Admission CBC with WBC 15.5 with left shift and lymphopenia, given ongoing intractable nausea and vomiting suspect significant dehydration, will continue to aggressively hydrate, treat #1, trend CBC. 03/20/2021: Leukocytosis is improving, however he spiked a fever overnight, started on Rocephin and the UA appears to have acute UTI despite no urine bacteria. Urine cultures pending 03/21/2021: Continue with Rocephin, leukocytosis is improving. Did remove Barnes secondary to possible UTI, will monitor urine output may need to replace Barnes if there is a post void residual 5. Chronic diastolic CHF/Nonischemic cardiomyopathy: We will continue aspirin, Coreg, not on statin therapy, diuretic or STACY inhibitor/ARB likely secondary to renal disease. Cautiously monitored IV fluid administration. 12/24/2018 echocardiogram with EF 55%, mildly enlarged LA, compared to prior echocardiogram EF improved from 20% to 55%. 6. Hx NSVTP: s/p AICD placement, recent 03/15/2021 ICD assessment. 7. Diabetes mellitus type II: Hold oral home regimen, given presentation will be admitted n.p.o. status, maintain every 6 hour accu checks w/ ISS. 8. Hypertension: Continue home regimen including amlodipine, Coreg with hold parameters, PRN hydralazine. 9. Hyperlipidemia: Not on statin therapy, defer to outpatient. 10. BPH: We will continue patient on Flomax regimen. 11 chronic anemia, AOCD, iron deficiency anemia: Admission hemoglobin 11.8, previously 02/27/2021 hemoglobin 10, continue iron supplementation, trend CBC. 12. Obesity: Weight loss and lifestyle changes encouraged. 13. RAQUEL: Continue CPAP nightly if amenable. Disposition: PT/OT evaluation for possible placement. 14. DVT prophylaxis: SCDs, heparin. Charges/Coding Visit Charges Inpatient E&M: 80317 Subs Hosp L2
--- NOTE | 2021-03-21 11:55 | CASEMGMT ---
[facility]. Franko Tavares MSW, ROSALIE
[2021-03-21] MEDS: Latanoprost 0.005% 1 Bottle 1 DRP EACH EYE (13:16)
--- NOTE | 2021-03-21 13:37 | CASEMGMT ---
Social Work Met with patient in room. Updated patient on pending pre-cert for [facility] as patient was denied at [place]. Patient continues to be agreeable to plan. Will continue to follow. Franko NIELSON, ROSALIE
--- NOTE | 2021-03-21 15:30 | CASEMGMT ---
[facility] chair inquired about status of pre-cert. Per [facility] pre-cert is still pending. Will continue to follow. Franko NIELSON, ROSALIE
[2021-03-21 16:55] LABS: Bedside Glucose 107 mg/dL (70-110)
[2021-03-21] MEDS: Ceftriaxone 1 GM/50 ML BAG IV (22:20)
[2021-03-22] VITALS (10 sets, daily range): BP systolic 117–158; BP diastolic 76–87; PULSE 63–112; RESP 16–18; TEMP 36.8–37.1; O2SAT 94–98
[2021-03-22 00:06] LABS: Bedside Glucose 98 mg/dL (70-110)
[2021-03-22 05:45] LABS: Bedside Glucose 86 mg/dL (70-110)
[2021-03-22 09:07] LABS: Absolute Lymphocyte Count 1.37 X10^3/uL (0.83-4.51); Absolute Neutrophil Count 7.3 X10^3/uL (2.0-7.7); Basophil# 0.06 X10^3/uL; Basophil% 0.5 % (0-1); Eosinophils% 5.5 % (0-5); Hematocrit 30.1 % (40-54); Hemoglobin 8.9 g/dL (13.0-16.5); Lymphocyte # 1.37 X10^3/ul (0.83-4.51); Lymphocyte % 12.5 % (19-41); Mean Corp Hgb Conc 29.6 g/dL (32-36); Mean Corpuscular Hgb 24.1 pg (27.0-32.0); Mean Corpuscular Volume 81.4 fL (80-94); Monocyte# 1.33 X10^3/uL; Monocyte% 12.2 % (0-10); NRBC Flagged by Analyzer 0.2 % (0-5); Neutrophil # 7.33 X10^3/uL (2.7-7.7); Neutrophil % 67.1 % (47-70); Platelet Count 140 K/mm3 (150-450); RBC Distribution Width CV 19.2 % (11.6-14.6); RBC Distribution Width SD 55.7 fl (35.1-43.9); White Blood Count 10.9 K/mm3 (4.4-11.0)
[2021-03-22 09:37] LABS: Anion Gap 10 (5-15); BUN 46 mg/dL (7-18); BUN/Creat Ratio 8.5 RATIO (10-20); Chloride 105 mmol/L (98-107); Creatinine, Serum 5.44 mg/dL (0.70-1.30); EST Glomerular Filtration Rate 11 mL/min (>60); Est Glom Filt Rate - Afr Amer 14 mL/min (>60); Glucose 117 mg/dL (74-106); Potassium 3.3 mmol/L (3.5-5.1); Sodium Level 140 mmol/L (136-145)
[2021-03-22] MEDS: Allopurinol 300 MG Tablet 150 MG PO (10:16)
[2021-03-22] MEDS: Tamsulosin HCl 0.4 MG Capsule PO (10:17)
[2021-03-22] MEDS: Latanoprost 0.005% 1 Bottle 1 DRP EACH EYE (10:17)
[2021-03-22] MEDS: Heparin Injection (Vial) 5,000 UNIT/ML VIAL 5000 UNIT SC ×2 (10:21→21:03)
--- NOTE | 2021-03-22 10:27 | CASEMGMT ---
[facility] Will continue to follow. Franko Tavares MSW, ROSALIE
--- NOTE | 2021-03-22 10:56 | PN.HOSP_ITS ---
Subjective Subjective Feels better with the Barnes in place now. He has had good urine output and feels better with dialysis Objective Data Objective Data Vital Signs: Vital Signs Temp Pulse Resp BP Pulse Ox 98.4 F 112 H 16 133/76 H 98 03/22/21 09:29 03/22/21 09:29 03/22/21 09:29 03/22/21 09:29 03/22/21 09:29 Oxygen Flow Rate (L/min) 1 Oxygen Delivery Method Room Air Weight: 292 lb 1.8 oz Body Mass Index (BMI) 39.8 Intake & Output: Intake and Output for Last 24 Hours 03/21/21 03/22/21 03/23/21 03:59 03:59 03:59 Intake Total 4072.50 / 4072.50 3040 / 3040 230 / 230 Output Total 400 / 400 1050 / 1050 325 / 325 Balance 3672.50 / 3672.50 1989 - / -95 Medical Nutrition Assessment Dietitian: Nutrition Therapy Diagnosis Start: 03/18/21 09:54 Freq: Status: Active Protocol: Document 03/20/21 14:26 RMA (Rec: 03/20/21 14:26 RMA [id number]) Nutrition Malnutrition Evidence of Malnutrition Exists No Intake Problem Inadequate Oral Intake Etiology related to decreased appetite/ CKD Signs/Symptoms as evidenced by less than 50% intake at meals Status Active Problem Clinical Problem Altered Nutrient-Related Laboratory Values Etiology related to renal dysfunction/ CHANTALE on CKD stage 5 Signs/Symptoms as evidenced by BUN 67, Creat 6.82 Status Active Problem Recommendation Dietitian Recommendations/Changes Will change diet to renal; no protein restriction. Will add 120ml Nepro TID w/ meals. Lab / Micro Data Result Diagrams: 03/22/21 08:40 03/22/21 08:40 Labs: Laboratory Results - last 24 hr 03/21/21 11:22: POC Glucose 105 03/21/21 16:50: POC Glucose 107 03/21/21 23:46: POC Glucose 98 03/22/21 05:22: POC Glucose 86 03/22/21 08:40: WBC 10.9, RBC 3.70 L, Hgb 8.9 L, Hct 30.1 L, MCV 81.4 D, MCH 24.1 L, MCHC 29.6 L D, RDW Std Deviation 55.7 H, RDW Coeff of Jeffrey 19.2 H, Plt Count 140 L, Immature Gran % (Auto) 2.200 H, Neut % (Auto) 67.1, Lymph % (Auto) 12.5 L, [place] % (Auto) 12.2 H, Eos % (Auto) 5.5 H, Baso % (Auto) 0.5, Absolute Neuts (auto) 7.3, Absolute Lymphs (auto) 1.37, Nucleated RBC % 0.2 03/22/21 08:40: Sodium 140, Potassium 3.3 L, Chloride 105, Carbon Dioxide 25.0, Anion Gap 10, BUN 46 H, Creatinine 5.44 H, Estim Creat Clear Calc 15.00, Est GFR (MDRD) Af Amer 14 L, Est GFR (MDRD) Non-Af 11 L, BUN/Creatinine Ratio 8.5 L, Glucose 117 H, Calcium 8.0 L Micro: Microbiology 03/19/21 22:30 Urine Catheter - Barnes Urine Culture - Preliminary Gram negative silvia 03/18/21 12:55 Mucosa - Nose SARS-CoV-2 Antigen (Rapid) - Final Physical Exam Const alert, oriented x3 and no apparent distress General Appearance: cooperative HEENT normocephalic and moist oral mucous membranes Eyes PERRL, EOMs intact bilaterally and conjunctivae normal Neck supple and no JVD Resp normal respiratory effort, no retractions, no use of accessory muscles and clear to auscultation bilaterally Auscultation: Negative for crackles, rales, rhonchi or wheezes Cardio regular rate, regular rhythm, S1 normal heart sound, S2 normal heart sound and no murmurs GI soft to palpation, non-tender and non-distended; Negative for hepatosplenomegaly Extremity no clubbing, cyanosis or edema Skin no rashes or lesions noted Neuro no focal motor deficits and no sensory deficits noted Psych affect normal Appearance: appropriate Assessment & Plan Assessment/Plan (1) Acute pancreatitis: QUALIFIERS: Pancreatitis type: unspecified pancreatitis type Acute pancreatitis complication: unspecified Qualified Code(s): K85.90 - Acute pancreatitis without necrosis or infection, unspecified (2) CHANTALE (acute kidney injury): (3) Hydronephrosis concurrent with and due to calculi of kidney and ureter: (4) Hyperkalemia: PLAN: 1. Acute pancreatitis w/ abdominal pain, N/V: Will admit to Admission lipase 1405, LFTs not marked appearing, maintain on aggressive IVFs, NPO, IV PPI, IV/po pain control, trend lipase, CMP. Will obtain RUQ US although no marked findings on CT, FLP, further assess for EtOH consumption risk as etiology for pancreatitis. 03/19/2021: Right upper quadrant ultrasound is unremarkable, can advance diet to renal diet this low-fat Resolved 2. CHANTALE on Chronic Kidney Disease Stage IV/hyperkalemia: Admission BUN/Cr 27/13.10, baseline renal function most recently 6-7, last 02/27/2021 creatinine 6.71, will continue to aggressively hydrate cautiously monitoring for volume overload given underlying cardiac disease, repeat CMP in a.m., suspected prerenal etiology given significant GI losses, consult nephrology. Requested [facility]. Patient with recent evaluation 02/22/2021 with general surgery, Dr. Moya for AVF initiation. Will consult Dr. Chavez with whom he has seen prior. 03/18/2021: Consult to general surgery for placement of a tunneled catheter, will undergo dialysis for the next 2 days 03/20/2021: Continue with dialysis, creatinine is much improved today. 03/21/2021: Continue with dialysis 03/22/2021: Continue with dialysis as well as the Barnes. Barnes removed 3. Incidentally noted bilateral hydronephrosis and hydroureter: CT abdomen pelvis with significant hydronephrosis bilaterally with some thinning of the renal cortices suggestive of atrophy, left more than right likely secondary to chronic hydronephrosis, a very large right-sided staghorn calculus as well as small several stones in the distal right ureter with no distinct stone along the left ureter although there is bilateral hydroureter, reportedly cannot exclude posterior urinary bladder mass with recommended follow-up with urology. Noted prior renal US w/ BL nonobstructing renal calculi and multiple cysts, mild to moderate left hydronephrosis, potentially worsening. Will request consultation with Dr. Sow. 4. Leukocytosis possible UTI: Admission CBC with WBC 15.5 with left shift and lymphopenia, given ongoing intractable nausea and vomiting suspect significant dehydration, will continue to aggressively hydrate, treat #1, trend CBC. 03/20/2021: Leukocytosis is improving, however he spiked a fever overnight, started on Rocephin and the UA appears to have acute UTI despite no urine bacte curt. Urine cultures pending 03/21/2021: Continue with Rocephin, leukocytosis is improving. Did remove Barnes secondary to possible UTI, will monitor urine output may need to replace Barnes if there is a post void residual 03/22/2021: CFU's in the urine culture are 11-25,000, will continue with IV antibi otics pending speciation. Old Barnes was removed and a new one was placed 5. Chronic diastolic CHF/Nonischemic cardiomyopathy: We will continue aspirin, Coreg, not on statin therapy, diuretic or STACY inhibitor/ARB likely secondary to renal disease. Cautiously monitored IV fluid administration. 12/24/2018 echocardiogram with EF 55%, mildly enlarged LA, compared to prior echocardiogram EF improved from 20% to 55%. 6. Hx NSVTP: s/p AICD placement, recent 03/15/2021 ICD assessment. 7. Diabetes mellitus type II: Hold oral home regimen, given presentation will be admitted n.p.o. status, maintain every 6 hour accu checks w/ ISS. 8. Hypertension: Continue home regimen including amlodipine, Coreg with hold parameters, PRN hydralazine. 9. Hyperlipidemia: Not on statin therapy, defer to outpatient. 10. BPH: We will continue patient on Flomax regimen. 11 chronic anemia, AOCD, iron deficiency anemia: Admission hemoglobin 11.8, previously 02/27/2021 hemoglobin 10, continue iron supplementation, trend CBC. 12. Obesity: Weight loss and lifestyle changes encouraged. 13. RAQUEL: Continue CPAP nightly if amenable. Disposition: PT/OT evaluation will likely need placement, pre-CERT is pending. 14. DVT prophylaxis: SCDs, heparin. Charges/Coding Visit Charges Inpatient E&M: 58713 Subs Hosp L2
[2021-03-22 12:10] LABS: Bedside Glucose 130 mg/dL (70-110)
--- NOTE | 2021-03-22 13:10 | DIALYSIS ---
Hemodialysis completed. 4 hours on a 3K bath.. No fluid removed. Next HD on ThursdayMarch 25. Patient tolerated treatment well. See flow sheet for details
[2021-03-22] MEDS: Carvedilol 3.125 MG TABLET PO ×2 (13:21→21:03)
[2021-03-22] MEDS: Calcium Acetate 667 MG Capsule PO ×2 (13:21→17:43)
--- NOTE | 2021-03-22 14:34 | CASEMGMT ---
Pt still awaiting precert to [facility] and [facility] notified that pt will not be there for 1st treatment today as pt is getting dialysis here today. This RN CM to f/u with [facility] on thursday if precert not obtained today. SStaten KAYLI CM
--- NOTE | 2021-03-22 14:50 | CASEMGMT ---
[facility]. This social worker psychiatric provided [facility] with [facility] nurses [facility] contact information in the event that pre-cert is obtained today yet or over the weekend. Green sheet placed on chart. Disposition: [facility] pending pre-cert. Franko NIELSON, ROSALIE
[2021-03-22 17:50] LABS: Bedside Glucose 139 mg/dL (70-110)
[2021-03-22] MEDS: 0.9% Saline Lock 10 ML Syringe IV (21:10)
[2021-03-22] MEDS: Ceftriaxone 1 GM/50 ML BAG IV (21:40)
[2021-03-22 23:36] LABS: Bedside Glucose 108 mg/dL (70-110)
[2021-03-23] VITALS (10 sets, daily range): BP systolic 134–157; BP diastolic 90–97; PULSE 93–113; RESP 18; TEMP 36.8–37.1; O2SAT 95–98
[2021-03-23 06:45] LABS: Bedside Glucose 94 mg/dL (70-110)
[2021-03-23 07:00] LABS: Anion Gap 10 (5-15); BUN 24 mg/dL (7-18); BUN/Creat Ratio 6.6 RATIO (10-20); Chloride 106 mmol/L (98-107); Creatinine, Serum 3.65 mg/dL (0.70-1.30); EST Glomerular Filtration Rate 18 mL/min (>60); Est Glom Filt Rate - Afr Amer 22 mL/min (>60); Estimated Creatinine Clearance 22.35 ml/min; Glucose 90 mg/dL (74-106); Potassium 3.4 mmol/L (3.5-5.1); Sodium Level 137 mmol/L (136-145)
[2021-03-23] MEDS: Carvedilol 3.125 MG TABLET PO ×2 (09:03→18:09)
[2021-03-23] MEDS: Calcium Acetate 667 MG Capsule PO ×2 (09:03→18:09)
[2021-03-23] MEDS: Potassium Chloride Oral Tablet 20 MEQ 40 MEQ PO (09:03)
[2021-03-23] MEDS: Latanoprost 0.005% 1 Bottle 1 DRP EACH EYE (09:04)
[2021-03-23] MEDS: Heparin Injection (Vial) 5,000 UNIT/ML VIAL 5000 UNIT SC ×2 (09:04→21:13)
[2021-03-23] MEDS: Tamsulosin HCl 0.4 MG Capsule PO (09:04)
[2021-03-23] MEDS: Allopurinol 300 MG Tablet 150 MG PO (09:04)
[2021-03-23] MEDS: 0.9% Saline Lock 10 ML Syringe IV ×4 (09:05→21:45)
[2021-03-23 11:21] LABS: Bedside Glucose 114 mg/dL (70-110)
--- NOTE | 2021-03-23 11:35 | PN.HOSP_ITS ---
Subjective Subjective Doing well, no new issues overnight, creatinine is much improved. We will replace his potassium today. Objective Data Objective Data Vital Signs: Vital Signs Temp Pulse Resp BP Pulse Ox 98.2 F 113 H 18 157/91 H 96 03/23/21 09:00 03/23/21 09:00 03/23/21 09:00 03/23/21 09:00 03/23/21 09:15 Oxygen Flow Rate (L/min) 1 Oxygen Delivery Method Room Air Weight: 298 lb 15.149 oz Body Mass Index (BMI) 39.8 Intake & Output: Intake and Output for Last 24 Hours 03/22/21 03/23/21 03/24/21 03:59 03:59 03:59 Intake Total 3040 / 3040 630 / 630 350 / 350 Output Total 1050 / 1050 900 / 900 150 / 150 Balance 1989 / 1989 -270 / -270 200 / 200 Medical Nutrition Assessment Dietitian: Nutrition Therapy Diagnosis Start: 03/18/21 09:54 Freq: Status: Active Protocol: Document 03/20/21 14:26 RMA (Rec: 03/20/21 14:26 RMA [id number]) Nutrition Malnutrition Evidence of Malnutrition Exists No Intake Problem Inadequate Oral Intake Etiology related to decreased appetite/ CKD Signs/Symptoms as evidenced by less than 50% intake at meals Status Active Problem Clinical Problem Altered Nutrient-Related Laboratory Values Etiology related to renal dysfunction/ CHANTALE on CKD stage 5 Signs/Symptoms as evidenced by BUN 67, Creat 6.82 Status Active Problem Recommendation Dietitian Recommendations/Changes Will change diet to renal; no protein restriction. Will add 120ml Nepro TID w/ meals. Lab / Micro Data Result Diagrams: 03/22/21 08:40 03/23/21 05:30 Labs: Laboratory Results - last 24 hr 03/22/21 11:54: POC Glucose 130 H 03/22/21 17:41: POC Glucose 139 H 03/22/21 23:29: POC Glucose 108 03/23/21 05:30: Sodium 137, Potassium 3.4 L, Chloride 106, Carbon Dioxide 21.0, Anion Gap 10, BUN 24 H, Creatinine 3.65 H, Estim Creat Clear Calc 22.35, Est GFR (MDRD) Af Amer 22 L, Est GFR (MDRD) Non-Af 18 L, BUN/Creatinine Ratio 6.6 L, Glucose 90, Calcium 8.0 L 03/23/21 06:29: POC Glucose 94 03/23/21 11:13: POC Glucose 114 H Micro: Microbiology 03/19/21 22:30 Urine Catheter - Barnes Urine Culture - Final Morganella morganii sp sibonii Proteus mirabilis 03/18/21 12:55 Mucosa - Nose SARS-CoV-2 Antigen (Rapid) - Final Physical Exam Const alert, oriented x3 and no apparent distress General Appearance: cooperative HEENT normocephalic and moist oral mucous membranes Eyes PERRL, EOMs intact bilaterally and conjunctivae normal Neck supple and no JVD Resp normal respiratory effort, no retractions, no use of accessory muscles and clear to auscultation bilaterally Auscultation: Negative for crackles, rales, rhonchi or wheezes Cardio regular rate, regular rhythm, S1 normal heart sound, S2 normal heart sound and no murmurs GI soft to palpation, non-tender and non-distended; Negative for hepatosplenomegaly Extremity no clubbing, cyanosis or edema Skin no rashes or lesions noted Neuro no focal motor deficits and no sensory deficits noted Psych affect normal Appearance: appropriate Assessment & Plan Assessment/Plan (1) Acute pancreatitis: QUALIFIERS: Pancreatitis type: unspecified pancreatitis type Acute pancreatitis complication: unspecified Qualified Code(s): K85.90 - Acute pancreatitis without necrosis or infection, unspecified (2) CHANTALE (acute kidney injury): (3) Hydronephrosis concurrent with and due to calculi of kidney and ureter: (4) Hyperkalemia: PLAN: 1. Acute pancreatitis w/ abdominal pain, N/V: Resolved 2. CHANTALE on Chronic Kidney Disease Stage IV/hyperkalemia: Admission BUN/Cr /13.10, baseline renal function most recently 6-7, last 02/27/2021 creatinine 6.71, will continue to aggressively hydrate cautiously monitoring for volume overload given underlying cardiac disease, repeat CMP in a.m., suspected prerenal etiology given significant GI losses, consult nephrology. Requested [facility]. Patient with recent evaluation 02/22/2021 with general surgery, Dr. Moya for AVF initiation. Will consult Dr. Chavez with whom he has seen prior. 03/18/2021: Consult to general surgery for placement of a tunneled catheter, will undergo dialysis for the next 2 days 03/20/2021: Continue with dialysis, creatinine is much improved today. 03/21/2021: Continue with dialysis 03/22/2021: Continue with dialysis as well as the Barnes. 3. Incidentally noted bilateral hydronephrosis and hydroureter: CT abdomen pelvis with significant hydronephrosis bilaterally with some thinning of the mellissa al cortices suggestive of atrophy, left more than right likely secondary to chronic hydronephrosis, a very large right-sided staghorn calculus as well as small several stones in the distal right ureter with no distinct stone along the left ureter although there is bilateral hydroureter, reportedly cannot exclude posterior urinary bladder mass with recommended follow-up with urology. Noted prior renal US w/ BL nonobstructing renal calculi and multiple cysts, mild to moderate left hydronephrosis, potentially worsening. Will request consultation with Dr. Sow. 4. Leukocytosis possible UTI: Admission CBC with WBC 15.5 with left shift and lymphopenia, given ongoing intractable nausea and vomiting suspect significant dehydration, will continue to aggressively hydrate, treat #1, trend CBC. 03/20/2021: Leukocytosis is improving, however he spiked a fever overnight, started on Rocephin and the UA appears to have acute UTI despite no urine bacteria. Urine cultures pending 03/21/2021: Continue with Rocephin, leukocytosis is improving. Did remove Barnes secondary to possible UTI, will monitor urine output may need to replace Barnes if there is a post void residual 03/22/2021: CFU's in the urine culture are 11-25,000, will continue with IV antibiotics pending speciation. Old Barnes was removed and a new one was placed 03/23/2021: Leukocytosis has resolved. There is a lot of sedimentation in his Barnes bag. UTI with Morganella morganii and Proteus, will transition to Ancef to cover the Morganella. 5. Chronic diastolic CHF/Nonischemic cardiomyopathy: We will continue aspirin, Coreg, not on statin therapy, diuretic or STACY inhibitor/ARB likely secondary to renal disease. Cautiously monitored IV fluid administration. 12/24/2018 echocardiogram with EF 55%, mildly enlarged LA, compared to prior echocardiogram EF improved from 20% to 55%. 6. Hx NSVTP: s/p AICD placement, recent 03/15/2021 ICD assessment. 7. Diabetes mellitus type II: Hold oral home regimen, given presentation will be admitted n.p.o. status, maintain every 6 hour accu checks w/ ISS. 8. Hypertension: Continue home regimen including amlodipine, Coreg with hold parameters, PRN hydralazine. 9. Hyperlipidemia: Not on statin therapy, defer to outpatient. 10. BPH: We will continue patient on Flomax regimen. 11 chronic anemia, AOCD, iron deficiency anemia: Admission hemoglobin 11.8, previously 02/27/2021 hemoglobin 10, continue iron supplementation, trend CBC. 12. Obesity: Weight loss and lifestyle changes encouraged. 13. RAQUEL: Continue CPAP nightly if amenable. Disposition: PT/OT evaluation will likely need placement, pre-CERT is pending. 14. DVT prophylaxis: SCDs, heparin. Charges/Coding Visit Charges Inpatient E&M: 31435 Subs Hosp L2
[2021-03-23] MEDS: Ondansetron 4 MG/2 ML Vial IV (13:47)
[2021-03-23] MEDS: Cefazolin 1 GM/50 ML BAG IV ×2 (14:58→21:07)
[2021-03-23 16:45] LABS: Bedside Glucose 107 mg/dL (70-110)
[2021-03-24] VITALS (8 sets, daily range): BP systolic 117–143; BP diastolic 80–95; PULSE 87–108; RESP 16–18; TEMP 36.5–37.2; O2SAT 95–98
[2021-03-24 00:10] LABS: Bedside Glucose 91 mg/dL (70-110)
[2021-03-24] MEDS: 0.9% Saline Lock 10 ML Syringe IV ×2 (04:22→20:57)
[2021-03-24] MEDS: Ondansetron 4 MG/2 ML Vial IV (04:22)
[2021-03-24 06:41] LABS: Absolute Neutrophil Count 7.9 X10^3/uL (2.0-7.7); Basophil# 0.05 X10^3/uL; Basophil% 0.5 % (0-1); Eosinophil# 0.54 X10^3/uL; Eosinophils% 4.9 % (0-5); Hematocrit 30.8 % (40-54); Hemoglobin 8.8 g/dL (13.0-16.5); Lymphocyte % 9.1 % (19-41); Mean Corp Hgb Conc 28.6 g/dL (32-36); Mean Corpuscular Hgb 23.6 pg (27.0-32.0); Mean Corpuscular Volume 82.6 fL (80-94); Monocyte# 1.27 X10^3/uL; Monocyte% 11.6 % (0-10); NRBC Flagged by Analyzer 0 % (0-5); Neutrophil % 71.9 % (47-70); Platelet Count 122 K/mm3 (150-450); RBC Distribution Width CV 19.4 % (11.6-14.6); Red Blood Count 3.73 M/mm3 (4.6-6.2)
[2021-03-24 06:41] LABS: Bedside Glucose 99 mg/dL (70-110)
[2021-03-24 07:05] LABS: Anion Gap 9 (5-15); BUN 30 mg/dL (7-18); BUN/Creat Ratio 6.7 RATIO (10-20); Calcium,Total 8.3 mg/dL (8.5-10.1); Chloride 106 mmol/L (98-107); Creatinine, Serum 4.49 mg/dL (0.70-1.30); EST Glomerular Filtration Rate 14 mL/min (>60); Est Glom Filt Rate - Afr Amer 17 mL/min (>60); Estimated Creatinine Clearance 18.17 ml/min; Glucose 94 mg/dL (74-106); Potassium 3.6 mmol/L (3.5-5.1); Sodium Level 139 mmol/L (136-145)
[2021-03-24] MEDS: proCHLORPERazine 10 MG/2 ML Vial 5 MG IV (08:51)
[2021-03-24] MEDS: Tamsulosin HCl 0.4 MG Capsule PO (08:58)
[2021-03-24] MEDS: Heparin Injection (Vial) 5,000 UNIT/ML VIAL 5000 UNIT SC ×2 (08:58→20:53)
[2021-03-24] MEDS: Carvedilol 3.125 MG TABLET PO ×2 (08:58→17:13)
[2021-03-24] MEDS: Calcium Acetate 667 MG Capsule PO ×2 (08:58→17:13)
[2021-03-24] MEDS: Latanoprost 0.005% 1 Bottle 1 DRP EACH EYE (08:59)
[2021-03-24] MEDS: Allopurinol 300 MG Tablet 150 MG PO (08:59)
[2021-03-24] MEDS: Cefazolin 1 GM/50 ML BAG IV ×2 (09:25→21:26)
[2021-03-24 12:05] LABS: Bedside Glucose 96 mg/dL (70-110)
[2021-03-24 13:04] LABS: Magnesium 1.6 mg/dL (1.6-2.6)
--- NOTE | 2021-03-24 15:23 | PN.HOSP_ITS ---
Subjective Subjective Doing well today, states that he feels little bit better. Blood pressure is stable, potassium is normalizing, his magnesium was low at 1.6 and he had episodes of tachycardia Objective Data Objective Data Vital Signs: Vital Signs Temp Pulse Resp BP Pulse Ox 97.8 F 94 16 132/95 H 97 03/24/21 09:10 03/24/21 09:10 03/24/21 09:10 03/24/21 09:10 03/24/21 09:10 Oxygen Flow Rate (L/min) 1 Oxygen Delivery Method Room Air Weight: 292 lb 8.854 oz Body Mass Index (BMI) 39.8 Intake & Output: Intake and Output for Last 24 Hours 03/23/21 03/24/21 03/25/21 03:59 03:59 03:59 Intake Total 630 / 630 980 / 980 440 / 440 Output Total 900 / 900 675 / 675 350 / 350 Balance -270 / -270 305 / 305 90 / 90 Medical Nutrition Assessment Dietitian: Nutrition Therapy Diagnosis Start: 03/18/21 09:54 Freq: Status: Active Protocol: Document 03/20/21 14:26 RMA (Rec: 03/20/21 14:26 RMA [id number]) Nutrition Malnutrition Evidence of Malnutrition Exists No Intake Problem Inadequate Oral Intake Etiology related to decreased appetite/ CKD Signs/Symptoms as evidenced by less than 50% intake at meals Status Active Problem Clinical Problem Altered Nutrient-Related Laboratory Values Etiology related to renal dysfunction/ CHANTALE on CKD stage 5 Signs/Symptoms as evidenced by BUN 67, Creat 6.82 Status Active Problem Recommendation Dietitian Recommendations/Changes Will change diet to renal; no protein restriction. Will add 120ml Nepro TID w/ meals. Lab / Micro Data Result Diagrams: 03/24/21 06:16 03/24/21 06:16 Labs: Laboratory Results - last 24 hr 03/23/21 15:56: POC Glucose 107 03/23/21 21:12: POC Glucose 91 03/24/21 06:16: WBC 11.0, RBC 3.73 L, Hgb 8.8 L, Hct 30.8 L, MCV 82.6, MCH 23.6 L, MCHC 28.6 L, RDW Std Deviation 57.0 H, RDW Coeff of Jeffrey 19.4 H, Plt Count 122 L, Immature Gran % (Auto) 2.000 H, Neut % (Auto) 71.9 H, Lymph % (Auto) 9.1 L, [place] % (Auto) 11.6 H, Eos % (Auto) 4.9, Baso % (Auto) 0.5, Absolute Neuts (auto) 7.9 H, Absolute Lymphs (auto) 1.00, Nucleated RBC % 0 03/24/21 06:16: Sodium 139, Potassium 3.6, Chloride 106, Carbon Dioxide 24.0, Anion Gap 9, BUN 30 H, Creatinine 4.49 H, Estim Creat Clear Calc 18.17, Est GFR (MDRD) Af Amer 17 L, Est GFR (MDRD) Non-Af 14 L, BUN/Creatinine Ratio 6.7 L, Glucose 94, Calcium 8.3 L 03/24/21 06:16: Magnesium 1.6 03/24/21 06:35: POC Glucose 99 03/24/21 11:59: POC Glucose 96 Micro: Microbiology 03/19/21 22:30 Urine Catheter - Barnes Urine Culture - Final Morganella morganii sp sibonii Proteus mirabilis 03/18/21 12:55 Mucosa - Nose SARS-CoV-2 Antigen (Rapid) - Final Physical Exam Const alert, oriented x3 and no apparent distress General Appearance: cooperative HEENT normocephalic and moist oral mucous membranes Eyes PERRL, EOMs intact bilaterally and conjunctivae normal Neck supple and no JVD Resp normal respiratory effort, no retractions, no use of accessory muscles and clear to auscultation bilaterally Auscultation: Negative for crackles, rales, rhonchi or wheezes Cardio regular rate, regular rhythm, S1 normal heart sound, S2 normal heart sound and no murmurs GI soft to palpation, non-tender and non-distended; Negative for hepatosplenomegaly Extremity no clubbing, cyanosis or edema Skin no rashes or lesions noted Neuro no focal motor deficits and no sensory deficits noted Psych affect normal Appearance: appropriate Assessment & Plan Assessment/Plan (1) Acute pancreatitis: QUALIFIERS: Pancreatitis type: unspecified pancreatitis type Acut e pancreatitis complication: unspecified Qualified Code(s): K85.90 - Acute pancreatitis without necrosis or infection, unspecified (2) CHANTALE (acute kidney injury): (3) Hydronephrosis concurrent with and due to calculi of kidney and ureter: (4) Hyperkalemia: PLAN: 1. Acute pancreatitis w/ abdominal pain, N/V: Resolved 2. CHANTALE on Chronic Kidney Disease Stage IV/hyperkalemia: Admission BUN/Cr 27/13.10, baseline renal function most recently 6-7, last 02/27/2021 creatinine 6.71, will continue to aggressively hydrate cautiously monitoring for volume overload given underlying cardiac disease, repeat CMP in a.m., suspected preren al etiology given significant GI losses, consult nephrology. Requested [facility]. Patient with recent evaluation 02/22/2021 with general surgery, Dr. Moya for AVF initiation. Will consult Dr. Chavez with whom he has seen prior. 03/18/2021: Consult to general surgery for placement of a tunneled catheter, will undergo dialysis for the next 2 days 03/20/2021: Continue with dialysis, creatinine is much improved today. 03/21/2021: Continue with dialysis 03/22/2021: Continue with dialysis as well as the Barnes. 03/24/2021: Continue with dialysis tomorrow, creatinine has bumped a little bit but he still feels well. 3. Incidentally noted bilateral hydronephrosis and hydroureter: CT abdomen pelvis with significant hydronephrosis bilaterally with some thinning of the renal cortices suggestive of atrophy, left more than right likely secondary to chronic hydronephrosis, a very large right-sided staghorn calculus as well as small several stones in the distal right ureter with no distinct stone along the left ureter although there is bilateral hydroureter, reportedly cannot exclude posterior urinary bladder mass with recommended follow-up with urology. Noted prior renal US w/ BL nonobstructing renal calculi and multiple cysts, mild to moderate left hydronephrosis, potentially worsening. Will request consultation with Dr. Sow. 4. Leukocytosis possible UTI: Admission CBC with WBC 15.5 with left shift and lymphopenia, given ongoing intractable nausea and vomiting suspect significant dehydration, will continue to aggressively hydrate, treat #1, trend CBC. 03/20/2021: Leukocytosis is improving, however he spiked a fever overnight, started on Rocephin and the UA appears to have acute UTI despite no urine bacteria. Urine cultures pending 03/21/2021: Continue with Rocephin, leukocytosis is improving. Did remove Barnes secondary to possible UTI, will monitor urine output may need to replace Barnes if there is a post void residual 03/22/2021: CFU's in the urine culture are 11-25,000, will continue with IV antibiotics pending speciation. Old Barnes was removed and a new one was placed 03/23/2021: Leukocytosis has resolved. There is a lot of sedimentation in his Barnes bag. UTI with Morganella morganii and Proteus, will transition to Ancef to cover the Morganella. 03/24/2021: Leukocytosis is resolved. Continue with Ancef 5. Chronic diastolic CHF/Nonischemic cardiomyopathy: We will continue aspirin, Coreg, not on statin therapy, diuretic or STACY inhibitor/ARB likely secondary to renal disease. Cautiously monitored IV fluid administration. 12/24/2018 echocardiogram with EF 55%, mildly enlarged LA, compared to prior echocardiogram EF improved from 20% to 55%. 6. Hx NSVTP: s/p AICD placement, recent 03/15/2021 ICD assessment. 7. Diabetes mellitus type II: Hold oral home regimen, given presentation will be admitted n.p.o. status, maintain every 6 hour accu checks w/ ISS. 8. Hypertension: Continue home regimen including amlodipine, Coreg with hold parameters, PRN hydralazine. 9. Hyperlipidemia: Not on statin therapy, defer to outpatient. 10. BPH: We will continue patient on Flomax regimen. 11 chronic anemia, AOCD, iron deficiency anemia: Admission hemoglobin 11.8, previously 02/27/2021 hemoglobin 10, continue iron supplementation, trend CBC. 12. Obesity: Weight loss and lifestyle changes encouraged. 13. RAQUEL: Continue CPAP nightly if amenable. Disposition: PT/OT evaluation will likely need placement, pre-CERT is pending. 14. DVT prophylaxis: SCDs, heparin. Charges/Coding Visit Charges Inpatient E&M: 18221 Subs Hosp L2
[2021-03-24 17:31] LABS: Bedside Glucose 118 mg/dL (70-110)
[2021-03-24 22:51] LABS: Bedside Glucose 129 mg/dL (70-110)
[2021-03-25] VITALS (9 sets, daily range): BP systolic 117–129; BP diastolic 80–91; PULSE 88–100; RESP 15–16; TEMP 36.4–36.8; O2SAT 96–98
[2021-03-25 06:02] LABS: Anion Gap 10 (5-15); BUN 29 mg/dL (7-18); BUN/Creat Ratio 7.2 RATIO (10-20); Calcium,Total 8.1 mg/dL (8.5-10.1); Chloride 106 mmol/L (98-107); Creatinine, Serum 4.02 mg/dL (0.70-1.30); EST Glomerular Filtration Rate 16 mL/min (>60); Est Glom Filt Rate - Afr Amer 20 mL/min (>60); Estimated Creatinine Clearance 20.29 ml/min; Glucose 83 mg/dL (74-106); Iron 89 ug/dL (65-175); Iron Binding Capacity,Total 466 ug/dL (250-450); PERCENT IRON SATURATION 19.1 % (15.0-55.0); Phosphorus 3.2 mg/dL (2.5-4.9); Potassium 3.7 mmol/L (3.5-5.1); Sodium Level 134 mmol/L (136-145)
[2021-03-25] MEDS: 0.9% Saline Lock 10 ML Syringe IV (06:06)
[2021-03-25 06:55] LABS: Bedside Glucose 92 mg/dL (70-110)
[2021-03-25] MEDS: Allopurinol 300 MG Tablet 150 MG PO (08:23)
[2021-03-25] MEDS: Heparin Injection (Vial) 5,000 UNIT/ML VIAL 5000 UNIT SC ×2 (08:23→22:14)
[2021-03-25] MEDS: Carvedilol 3.125 MG TABLET PO ×2 (08:23→17:15)
[2021-03-25] MEDS: Tamsulosin HCl 0.4 MG Capsule PO (09:29)
[2021-03-25] MEDS: Latanoprost 0.005% 1 Bottle 1 DRP EACH EYE (09:29)
--- NOTE | 2021-03-25 09:47 | PCM.PN.REN ---
Subjective Subjective denies nausea, vomiting, abdominal pain. Lucero replaced due to urinary retention. Creatinine improved today, holding dialysis Objective Data Objective Data Vital Signs: Vital Signs Temp Pulse Resp BP Pulse Ox 98.2 F 99 16 129/85 H 96 03/25/21 08:19 03/25/21 08:19 03/25/21 08:19 03/25/21 08:19 03/25/21 08:19 Oxygen Flow Rate (L/min) 1 Oxygen Delivery Method Room Air Weight: 132.7 kg Body Mass Index (BMI) 39.8 Intake & Output: Intake and Output for Last 24 Hours 03/23/21 03/24/21 03/25/21 23:59 23:59 23:59 Intake Total 1100 / 1220 1024 / 1024 Output Total 650 / 850 675 / 675 250 / 250 Balance 450 / 370 349 / 349 -250 / -250 Medical Nutrition Assessment Dietitian: Nutrition Therapy Diagnosis Start: 03/18/21 09:54 Freq: Status: Active Protocol: Document 03/20/21 14:26 RMA (Rec: 03/20/21 14:26 RMA [id number]) Nutrition Malnutrition Evidence of Malnutrition Exists No Intake Problem Inadequate Oral Intake Etiology related to decreased appetite/ CKD Signs/Symptoms as evidenced by less than 50% intake at meals Status Active Problem Clinical Problem Altered Nutrient-Related Laboratory Values Etiology related to renal dysfunction/ CHANTALE on CKD stage 5 Signs/Symptoms as evidenced by BUN 67, Creat 6.82 Status Active Problem Recommendation Dietitian Recommendations/Changes Will change diet to renal; no protein restriction. Will add 120ml Nepro TID w/ meals. Lab / Micro Data Result Diagrams: 03/24/21 06:16 03/25/21 05:20 Labs: Laboratory Results - last 24 hr 03/24/21 06:16: Magnesium 1.6 03/24/21 11:59: POC Glucose 96 03/24/21 17:11: POC Glucose 118 H 03/24/21 21:30: POC Glucose 129 H 03/25/21 05:20: Sodium 134 L, Potassium 3.7, Chloride 106, Carbon Dioxide 18.0 L, Anion Gap 10, BUN 29 H, Creatinine 4.02 H, Estim Creat Clear Calc 20.29, Est GFR (MDRD) Af Amer 20 L, Est GFR (MDRD) Non-Af 16 L, BUN/Creatinine Ratio 7.2 L, Glucose 83, Calcium 8.1 L, Phosphorus 3.2, Iron 89, TIBC 466 H, Iron Saturation 19.1 03/25/21 06:49: POC Glucose 92 Micro: Microbiology 03/19/21 22:30 Urine Catheter - Lucero Urine Culture - Final Morganella morganii sp vani Proteus mirabilis 03/18/21 12:55 Mucosa - Nose SARS-CoV-2 Antigen (Rapid) - Final Physical Exam Const alert and oriented x3 Resp clear to auscultation bilaterally Cardio regular rate Bladder / Kidney Exam: catheter in place Extremity no clubbing, cyanosis or edema Neuro Sensorium / Orientation: awake and alert Psych cooperative Assessment & Plan Assessment/Plan (1) Acute on chronic renal failure: QUALIFIERS: Acute renal failure type: unspecified Chronic kidney disease stage: stage 5, not on chronic dialysis Qualified Code(s): N17.9 - Acute kidney failure, unspecified; N18.5 - Chronic kidney disease, stage 5 PLAN: Hold dialysis today, watch for renal recovery (2) CKD stage 5 due to type 2 diabetes mellitus: (3) Acute pancreatitis: PLAN: dc iv fluids, tolerating diet (4) Hydronephrosis concurrent with and due to calculi of kidney and ureter: PLAN: referral, lucero removed then reinserted (5) Diabetes mellitus, type II: QUALIFIERS: Diabetes mellitus assisted insulin use: 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
--- NOTE | 2021-03-25 09:48 | CASEMGMT ---
Social Work Per Dr. Chavez (Nephrology), plan is to keep patient at least another day for medical monitoring. Telephone call to [facility], Dina. Dina reports that pre-cert is still pending. This mental health social worker updated Dina on above information. Will continue to follow. Franko NIELSON, ROSALIE
[2021-03-25] MEDS: Cefazolin 1 GM/50 ML BAG IV (09:53)
--- NOTE | 2021-03-25 10:27 | CASEMGMT ---
[facility] reports to have obtained pre-cert for patient and it should be good until tomorrow. Will continue to follow. Franko NIELSON, ROSALIE
[2021-03-25] MEDS: Ferrous Sulfate 325 MG Tablet PO ×2 (11:30→17:15)
[2021-03-25 11:51] LABS: Bedside Glucose 139 mg/dL (70-110)
--- NOTE | 2021-03-25 12:00 | CASEMGMT ---
Per Dr. Chavez, dialysis held today and will re-eval tomorrow. Amina at renal care updated, voices understanding. CM to follow. Theron MILAN CM
--- NOTE | 2021-03-25 13:31 | PN.HOSP_ITS ---
Subjective Subjective Doing well, no issues overnight. These are, denies any abdominal pain, dialysis was held today secondary to improve kidney function and evaluation of further need for dialysis Objective Data Objective Data Vital Signs: Vital Signs Temp Pulse Resp BP Pulse Ox 98.2 F 100 16 129/85 H 96 03/25/21 08:19 03/25/21 10:59 03/25/21 08:19 03/25/21 08:19 03/25/21 08:19 Oxygen Flow Rate (L/min) 1 Oxygen Delivery Method Room Air Weight: 292 lb 8.854 oz Body Mass Index (BMI) 39.8 Intake & Output: Intake and Output for Last 24 Hours 03/24/21 03/25/21 03/26/21 03:59 03:59 03:59 Intake Total 980 / 980 904 / 904 160 / 160 Output Total 675 / 675 475 / 475 400 / 400 Balance 305 / 305 429 / 429 -240 / -240 Medical Nutrition Assessment Dietitian: Nutrition Therapy Diagnosis Start: 03/18/21 09:54 Freq: Status: Active Protocol: Document 03/20/21 14:26 RMA (Rec: 03/20/21 14:26 RMA [id number]) Nutrition Malnutrition Evidence of Malnutrition Exists No Intake Problem Inadequate Oral Intake Etiology related to decreased appetite/ CKD Signs/Symptoms as evidenced by less than 50% intake at meals Status Active Problem Clinical Problem Altered Nutrient-Related Laboratory Values Etiology related to renal dysfunction/ CHANTALE on CKD stage 5 Signs/Symptoms as evidenced by BUN 67, Creat 6.82 Status Active Problem Recommendation Dietitian Recommendations/Changes Will change diet to renal; no protein restriction. Will add 120ml Nepro TID w/ meals. Lab / Micro Data Result Diagrams: 03/24/21 06:16 03/25/21 05:20 Labs: Laboratory Results - last 24 hr 03/24/21 17:11: POC Glucose 118 H 03/24/21 21:30: POC Glucose 129 H 03/25/21 05:20: Sodium 134 L, Potassium 3.7, Chloride 106, Carbon Dioxide 18.0 L , Anion Gap 10, BUN 29 H, Creatinine 4.02 H, Estim Creat Clear Calc 20.29, Est GFR (MDRD) Af Amer 20 L, Est GFR (MDRD) Non-Af 16 L, BUN/Creatinine Ratio 7.2 L, Glucose 83, Calcium 8.1 L, Phosphorus 3.2, Iron 89, TIBC 466 H, Iron Saturation 19.1 03/25/21 06:49: POC Glucose 92 03/25/21 11:30: POC Glucose 139 H Micro: Microbiology 03/19/21 22:30 Urine Catheter - Barnes Urine Culture - Final Morganella morganii sp sibonii Proteus mirabilis 03/18/21 12:55 Mucosa - Nose SARS-CoV-2 Antigen (Rapid) - Final Physical Exam Const alert, oriented x3 and no apparent distress General Appearance: cooperative HEENT normocephalic and moist oral mucous membranes Eyes PERRL, EOMs intact bilaterally and conjunctivae normal Neck supple and no JVD Resp normal respiratory effort, no retractions, no use of accessory muscles and clear to auscultation bilaterally Auscultation: Negative for crackles, rales, rhonchi or wheezes Cardio regular rate, regular rhythm, S1 normal heart sound, S2 normal heart sound and no murmurs GI soft to palpation, non-tender and non-distended; Negative for hepatosplenomegaly Extremity no clubbing, cyanosis or edema Skin no rashes or lesions noted Neuro no focal motor deficits and no sensory deficits noted Psych affect normal Appearance: appropriate Assessment & Plan Assessment/Plan (1) Acute pancreatitis: QUALIFIERS: Acute pancreatitis complication: unspecified Pancreatitis type: unspecified pancreatitis type Qualified Code(s): K85.90 - Acute pancreatitis without necrosis or infection, unspecified (2) CHANTALE (acute kidney injury): (3) Hydronephrosis concurrent with and due to calculi of kidney and ureter: (4) Hyperkalemia: PLAN: 1. Acute pancreatitis w/ abdominal pain, N/V: Resolved 2. CHANTALE on Chronic Kidney Disease Stage IV/hyperkalemia: Admission BUN/Cr 27/13.10, baseline renal function most recently 6-7, last 02/27/2021 creatinine 6.71, will continue to aggressively hydrate cautiously monitoring for volume overload given underlying cardiac disease, repeat CMP in a.m., suspected prerenal etiology given significant GI losses, consult nephrology. Requested [facility]Na. Patient with recent evaluation 02/22/2021 with general surgery, Dr. Moya for AVF initiation. Will consult Dr. Chavez with whom he has seen prior. 03/18/2021: Consult to general surgery for placement of a tunneled catheter, will undergo dialysis for the next 2 days 03/20/2021: Continue with dialysis, creatinine is much improved today. 03/21/2021: Continue with dialysis 03/22/2021: Continue with dialysis as well as the Barnes. 03/24/2021: Continue with dialysis tomorrow, creatinine has bumped a little bit but he still feels well. 03/25/2021: Nephrology decided to hold dialysis today to monitor kidney function and possible improvement in the need for no further dialysis. We will repeat creatinine in the morning and follow-up with the recommendations 3. Incidentally noted bilateral hydronephrosis and hydroureter: CT abdomen pelvis with significant hydronephrosis bilaterally with some thinning of the renal cortices suggestive of atrophy, left more than right likely secondary to chronic hydronephrosis, a very large right-sided staghorn calculus as well as small several stones in the distal right ureter with no distinct stone along the left ureter although there is bilateral hydroureter, reportedly cannot exclude posterior urinary bladder mass with recommended follow-up with urology. Noted prior renal US w/ BL nonobstructing renal calculi and multiple cysts, mild to moderate left hydronephrosis, potentially worsening. Will request consultation with Dr. Sow. 4. Leukocytosis possible UTI: Admission CBC with WBC 15.5 with left shift and lymphopenia, given ongoing intractable nausea and vomiting suspect significant dehydration, will continue to aggressively hydrate, treat #1, trend CBC. 03/20/2021: Leukocytosis is improving, however he spiked a fever overnight, started on Rocephin and the UA appears to have acute UTI despite no urine bacteria. Urine cultures pending 03/21/2021: Continue with Rocephin, leukocytosis is improving. Did remove Barnes secondary to possible UTI, will monitor urine output may need to replace Barnes if there is a post void residual 03/22/2021: CFU's in the urine culture are 11-25,000, will continue with IV antibiotics pending speciation. Old Barnes was removed and a new one was placed 03/23/2021: Leukocytosis has resolved. There is a lot of sedimentation in his Barnes bag. UTI with Morganella morganii and Proteus, will transition to Ancef to cover the Morganella. 03/24/2021: Leukocytosis is resolved. Continue with Ancef 03/25/2021: Can discontinue Ancef in the morning after his final dose. 5. Chronic diastolic CHF/Nonischemic cardiomyopathy: We will continue aspirin, Coreg, not on statin therapy, diuretic or STACY inhibitor/ARB likely secondary to renal disease. Cautiously monitored IV fluid administration. 12/24/2018 echocardiogram with EF 55%, mildly enlarged LA, compared to prior echocardiogram EF improved from 20% to 55%. 6. Hx NSVTP: s/p AICD placement, recent 03/15/2021 ICD assessment. 7. Diabetes mellitus type II: Hold oral home regimen, given presentation will be admitted n.p.o. status, maintain every 6 hour accu checks w/ ISS. 8. Hypertension: Continue home regimen including amlodipine, Coreg with hold parameters, PRN hydralazine. 9. Hyperlipidemia: Not on statin therapy, defer to outpatient. 10. BPH: We will continue patient on Flomax regimen. 11 chronic anemia, AOCD, iron deficiency anemia: Admission hemoglobin 11.8, previously 02/27/2021 hemoglobin 10, continue iron supplementation, trend CBC. 12. Obesity: Weight loss and lifestyle changes encouraged. 13. RAQUEL: Continue CPAP nightly if amenable. Disposition: PT/OT evaluation will likely need placement, pre-CERT is pending. 14. DVT prophylaxis: SCDs, heparin. Charges/Coding Visit Charges Inpatient E&M: 21839 Subs Hosp L2
[2021-03-25 18:58] LABS: Bedside Glucose 113 mg/dL (70-110)
[2021-03-25] MEDS: Pantoprazole Sodium 40 MG Tablet PO (22:15)
[2021-03-25 22:20] LABS: Bedside Glucose 132 mg/dL (70-110)
[2021-03-26] VITALS (7 sets, daily range): BP systolic 125–138; BP diastolic 84–90; PULSE 84–94; RESP 16–20; TEMP 36.6–36.8; O2SAT 98–100
[2021-03-26 05:44] LABS: Absolute Lymphocyte Count 1.37 X10^3/uL (0.83-4.51); Absolute Neutrophil Count 6.5 X10^3/uL (2.0-7.7); Basophil# 0.07 X10^3/uL; Basophil% 0.7 % (0-1); Eosinophil# 0.66 X10^3/uL; Eosinophils% 6.7 % (0-5); Hematocrit 31.3 % (40-54); Hemoglobin 9.1 g/dL (13.0-16.5); Lymphocyte # 1.37 X10^3/ul (0.83-4.51); Lymphocyte % 13.8 % (19-41); Mean Corp Hgb Conc 29.1 g/dL (32-36); Mean Corpuscular Hgb 24.1 pg (27.0-32.0); Monocyte# 1.21 X10^3/uL; Monocyte% 12.2 % (0-10); NRBC Flagged by Analyzer 0 % (0-5); Neutrophil # 6.45 X10^3/uL (2.7-7.7); Neutrophil % 65.2 % (47-70); Platelet Count 125 K/mm3 (150-450); RBC Distribution Width CV 19.4 % (11.6-14.6); RBC Distribution Width SD 57.8 fl (35.1-43.9); Red Blood Count 3.77 M/mm3 (4.6-6.2); White Blood Count 9.9 K/mm3 (4.4-11.0)
[2021-03-26 06:15] LABS: Albumin, Serum 2.4 g/dL (3.2-5.0); BUN 37 mg/dL (7-18); BUN/Creat Ratio 6.7 RATIO (10-20); Calcium,Total 7.9 mg/dL (8.5-10.1); Chloride 107 mmol/L (98-107); Creatinine, Serum 5.55 mg/dL (0.70-1.30); EST Glomerular Filtration Rate 11 mL/min (>60); Est Glom Filt Rate - Afr Amer 14 mL/min (>60); Glucose 105 mg/dL (74-106); Phosphorus 2.4 mg/dL (2.5-4.9); Sodium Level 138 mmol/L (136-145)
[2021-03-26 07:05] LABS: Bedside Glucose 102 mg/dL (70-110)
[2021-03-26] MEDS: Carvedilol 3.125 MG TABLET PO (08:44)
[2021-03-26] MEDS: Allopurinol 300 MG Tablet 150 MG PO (08:44)
[2021-03-26] MEDS: Tamsulosin HCl 0.4 MG Capsule PO (08:44)
[2021-03-26] MEDS: Heparin Injection (Vial) 5,000 UNIT/ML VIAL 5000 UNIT SC (08:44)
[2021-03-26] MEDS: Pantoprazole Sodium 40 MG Tablet PO (08:44)
[2021-03-26] MEDS: Latanoprost 0.005% 1 Bottle 1 DRP EACH EYE (08:45)
--- NOTE | 2021-03-26 09:56 | CASEMGMT ---
Per Dr. Chavez, pt will need to continue dialysis at this time and Dr. Chavez updated that pt is already set up for treatment at [facility] at 1700. Amina at renal [facility] updated that pt to discharge today to [facility] and will have 1st OP treatment there tomorrow 03/27/21 at 1700. Amina requests D/C summary be faxed once obtained. Jenniffer ARVIZU aware and call to [facility] regarding same. CM to follow for any further discharge planning/needs. Theron MILAN CM
[2021-03-26] MEDS: Potassium Chloride Oral Tablet 20 MEQ PO (10:08)
[2021-03-26] MEDS: Cefazolin 1 GM/50 ML BAG IV (10:08)
[2021-03-26] MEDS: Ferrous Sulfate 325 MG Tablet PO (11:31)
--- NOTE | 2021-03-26 11:35 | PN.RENAL_ITS ---
Subjective Subjective clinically unchanged, creatinine rise despite lucero insertion. Will need to continue 3x/wk dialysis at this time. Objective Data Objective Data Vital Signs: Vital Signs Temp Pulse Resp BP Pulse Ox 98.2 F 91 16 125/90 H 100 03/26/21 08:33 03/26/21 10:59 03/26/21 08:33 03/26/21 08:33 03/26/21 08:33 Oxygen Flow Rate (L/min) 1 Oxygen Delivery Method Room Air Weight: 131.1 kg Body Mass Index (BMI) 39.8 Intake & Output: Intake and Output for Last 24 Hours 03/24/21 03/25/21 03/26/21 23:59 23:59 23:59 Intake Total 1024 / 1024 400 / 400 250 / 250 Output Total 675 / 675 725 / 725 400 / 400 Balance 349 / 349 -325 / -325 -150 / -150 Medical Nutrition Assessment Dietitian: Nutrition Therapy Diagnosis Start: 03/18/21 09:54 Freq: Status: Active Protocol: Document 03/25/21 15:19 RMA (Rec: 03/25/21 15:19 RMA [id number]) Nutrition Malnutrition Evidence of Malnutrition Exists No Intake Problem Decreased Nutrient Needs (specify) Etiology for sodium related to CKD Signs/Symptoms as evidenced by BUN 29/creat 4 .02 Status Active Problem Recommendation Dietitian Recommendations/Changes Will change diet to Carbohydrate-Controlled/ Cardiac, sodium-restricted. Will d/c 120ml Nepro TID w/ meals since appetite improved. Lab / Micro Data Result Diagrams: 03/26/21 05:08 03/26/21 05:08 Labs: Laboratory Results - last 24 hr 03/25/21 11:30: POC Glucose 139 H 03/25/21 17:14: POC Glucose 113 H 03/25/21 22:13: POC Glucose 132 H 03/26/21 05:08: Sodium 138, Potassium 3.0 L, Chloride 107, Carbon Dioxide 21.0, BUN 37 H, Creatinine 5.55 H, Estim Creat Clear Calc 14.70, Est GFR (MDRD) Af Amer 14 L, Est GFR (MDRD) Non-Af 11 L, BUN/Creatinine Ratio 6.7 L, Glucose 105, Calcium 7.9 L, Phosphorus 2.4 L, Albumin 2.4 L 03/26/21 05:08: WBC 9.9, RBC 3.77 L, Hgb 9.1 L, Hct 31.3 L, MCV 83.0, MCH 24.1 L , MCHC 29.1 L, RDW Std Deviation 57.8 H, RDW Coeff of Jeffrey 19.4 H, Plt Count 125 L, Immature Gran % (Auto) 1.400 H, Neut % (Auto) 65.2, Lymph % (Auto) 13.8 L, Montague % (Auto) 12.2 H, Eos % (Auto) 6.7 H, Baso % (Auto) 0.7, Absolute Neuts (auto) 6.5, Absolute Lymphs (auto) 1.37, Nucleated RBC % 0 03/26/21 06:43: POC Glucose 102 Micro: Microbiology 03/19/21 22:30 Urine Catheter - Lucero Urine Culture - Final Morganella morganii sp sibonii Proteus mirabilis 03/18/21 12:55 Mucosa - Nose SARS-CoV-2 Antigen (Rapid) - Final Physical Exam Const alert and oriented x3 Resp clear to auscultation bilaterally Bladder / Kidney Exam: catheter in place Extremity no clubbing, cyanosis or edema Assessment & Plan Assessment/Plan (1) Acute on chronic renal failure: QUALIFIERS: Acute renal failure type: unspecified Chronic kidney disease stage: stage 5, not on chronic dialysis Qualified Code(s): N17.9 - Acute kidney failure, unspecified; N18.5 - Chronic kidney disease, stage 5 PLAN: creatinine increased today. Will continue with dialysis MWF schedule as outpt. 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
[2021-03-26 12:01] LABS: Bedside Glucose 111 mg/dL (70-110)
--- NOTE | 2021-03-26 12:31 | PCM.TXEXTCAR ---
Diet 03/25/21 15:19 Diet: Carbohydrate Controlled Food consistency:: Regular Liquid Consistency:: Regular/Thin Dietary Modifications:: Cardiac / Heart Healthy Sodium Restricted Is pt able to select menu?: No Routine Orders/Code Status Routine Lab Work: CBC and BMP Code Status: Full Code Wound(s) Left Lower Leg: Wound Type: Skin Tear RIGHT UPPER CHEST: Wound Type: Surgical Incision Therapies Physical Therapy: Eval and Treat Occupational Therapy: Eval and Treat Problem/Diagnosis (1) Acute on chronic renal failure: Status: Chronic (2) CKD stage 5 due to type 2 diabetes mellitus: Status: Acute (3) Acute pancreatitis: Status: Acute (4) Hydronephrosis concurrent with and due to calculi of kidney and ureter: Status: Acute (5) Diabetes mellitus, type II: Status: Chronic (6) Essential (primary) hypertension: Status: Chronic (7) Anemia: Status: Acute (8) Secondary hyperparathyroidism (of renal origin): Status: Acute (9) Hyperphosphatemia: Status: Acute Allergies/Procedures Done in Hospital Allergies No Known Allergies Allergy (Verified 03/17/21 23:50) Procedures: Dialysis Type of Care/Length of Stay Estimated LOS: More Than 30 Days Type of Care Needed: Skilled Rehab Potential: Good Prognosis: Good Additional Orders/Day of Discharge Additional Orders: To continue with Palliative Care through [facility]. Day of Discharge: 03/26/21 Dietary and Speech Recommendations Dietitian Recommendations/Changes: Will change diet to Carbohydrate-Controlled/Cardiac, sodium-restricted. Will d/c 120ml Nepro TID w/ meals since appetite improved. Discharge Plan Admission Admit Date/Time: 03/18/21 04:01 Attending Provider: Toni Null Primary Care Provider: Juany Wylie Consulting Providers: Omaira Chavez ; Nile Sow ; Annmarie Shabazz Discharge Orders/Prescriptions Prescriptions: Continued tamsulosin 0.4 mg capsule 0.4 mg PO DAILY RF: 0 allopurinol 300 MG tablet 150 mg PO DAILY RF: 0 carvedilol 25 mg tablet 37.5 mg PO BID RF: 0 linagliptin 5 MG tablet 5 mg PO DAILY RF: 0 latanoprost 1 DROP bottle 1 drp EACH EYE DAILY RF: 0 ammonium lactate 226 GM lotion 1 applicatio TP DAILY PRN PRN (Reason: IRRITATION) RF: 0 amlodipine 10 mg tablet 10 mg PO DAILY RF: 0 ferrous sulfate 325 mg (65 mg iron) tablet 325 mg PO BID Qty: 14 RF: 0 Referrals / Follow Up: Juany Wylie MD [Primary Care Provider] - Disposition Disposition (needs filled in before D/C Order can be placed): Nursing Home Facility
--- NOTE | 2021-03-26 14:11 | CASEMGMT ---
Patient is ready for discharge to [facility]. [facility] faxed orders and negative COVID test to [facility]. PASRR was completed on [facility] and faxed to [facility] last week. [facility] arranged for patient to get picked up at via [email or web address] van. [facility] called and notified Dina at [facility], RN and hospice patient care secretary. Patient was sleeping. Plan: d/c to [facility] under skilled level of care on a PASRR. [facility] transported via [email or web address] van. Giselle SCHMITT
--- NOTE | 2021-03-26 14:14 | CASEMGMT ---
LUH called Adina Farr with [facility] and left her a message letting her know patient was discharged to [facility] today. Orders were also faxed to her. Giselle SCHMITT
--- NOTE | 2021-03-26 14:28 | PCM.DC.SUM ---
Providers Date of Admission: 03/18/21 Primary Care Physician: Dr. Juany Wylie MD Consultations 03/18/21 05:26 Consult: Nephrology Routine Consulting Provider: Omaira Chavez Reason for Consult: CHANTALE on CKD EMERGENT Consult: No Notified: Yes Date Notified: 03/18/21 Time Notified: 03:55 Method of Notification: cortext Consult: Urology Routine Consulting Provider: Nile Sow Reason for Consult: Worsened appearance BL hydroneph/hydroureter, CHANTALE on CKD EMERGENT Consult: No Notified: Yes Date Notified: 03/18/21 Time Notified: 03:55 Method of Notification: texted 03/18/21 11:29 Consult: General Surgery Routine Consulting Provider: Annmarie Shabazz Reason for Consult: Dialysis catheter EMERGENT Consult: No Notified: Yes Date Notified: 03/18/21 Time Notified: 11:29 Method of Notification: Verbal Reason For Visit: ACUTE PANCREATITIS, CHANTALE ON CKD, HYPERKALEMIA Diagnosis Discharge Diagnosis (1) Acute on chronic renal failure: Status: Chronic Code(s): N17.9 - Acute kidney failure, unspecified; N18.9 - Chronic kidney disease, unspecified Qualifiers: Acute renal failure type: unspecified Chronic kidney disease stage: stage 5, not on chronic dialysis Qualified Code(s): N17.9 - Acute kidney failure, unspecified; N18.5 - Chronic kidney disease, stage 5 (2) CKD stage 5 due to type 2 diabetes mellitus: Status: Acute Code(s): E11.22 - Type 2 diabetes mellitus with diabetic chronic kidney disease; N18.5 - Chronic kidney disease, stage 5 (3) Acute pancreatitis: Status: Acute Code(s): K85.90 - Acute pancreatitis without necrosis or infection, unspecified (4) Hydronephrosis concurrent with and due to calculi of kidney and ureter: Status: Acute Code(s): N13.2 - Hydronephrosis with renal and ureteral calculous obstruction (5) Diabetes mellitus, type II: Status: Chronic Code(s): E11.9 - Type 2 diabetes mellitus without complications Qualifiers: Diabetes mellitus assisted insulin use: unspecified assisted insulin use status Diabetes mellitus complication status: with skin complications Diabetes mellitus complication detail: with other skin ulcer Qualified Code(s): E11.622 - Type 2 diabetes mellitus with other skin ulcer; L98.499 - Non-pressure chronic ulcer of skin of other sites with unspecified severity (6) Essential (primary) hypertension: Status: Chronic Code(s): I10 - Essential (primary) hypertension (7) Anemia: Status: Acute Code(s): D64.9 - Anemia, unspecified (8) Secondary hyperparathyroidism (of renal origin): Status: Acute Code(s): N25.81 - Secondary hyperparathyroidism of renal origin (9) Hyperphosphatemia: Status: Acute Code(s): E83.39 - Other disorders of phosphorus metabolism Medications at Discharge Home Medications allopurinol 150 mg PO DAILY 01/27/16 linagliptin 5 mg PO DAILY 08/05/17 ammonium lactate 1 applicatio TP DAILY PRN PRN 12/23/18 latanoprost 1 drp EACH EYE DAILY 12/23/18 tamsulosin 0.4 mg capsule 0.4 mg PO DAILY 06/21/19 amlodipine 10 mg PO DAILY 01/24/21 ferrous sulfate 325 mg PO BID #14 tab 01/28/21 carvedilol 25 mg tablet 37.5 mg PO BID tab 02/27/21 Hospital Course Operations None Procedures Dialysis Summary of Care Provided Minutes Spent on Discharge: 40 Hospital Course: Per HPI: The patient is a 60 y/o M w/ PMHx: CKD stage IV, Chronic anemia/AOCD, Diabetes mellitus type II, Chronic diastolic CHF/Nonischemic cardiomyopathy, Hx NSVT s/p AICD placement, HTN, HLD, RAQUEL, Obesity who presents to the [facility] ED on 03/18/21 with history of intractable nausea and vomiting that began on day prior to ED day of presentation with concurrent nonproductive cough and chest aching with inability to keep anything down with mild epigastric discomfort ongoing, currently rated 2 out of 10 in severity, prompting eventual ED presentation. Work-up in the ED included T 96.1, heart rate 95, BP 112/80, respiratory rate 18, 98% on room air, CBC with WBC 15.5, hemoglobin 11.8, MCV 79, platelet 228 with left shift and lymphopenia, CMP with sodium 135, potassium 6.6, chloride 110, carbon oxide 10, BUN/creatinine 187/13.10, glucose 155, not marked appearing hepatic profile, lipase 1405, CT abdomen pelvis with significant hydronephrosis bilaterally with some thinning of the renal cortices suggestive of atrophy, left more than right likely secondary to chronic hydronephrosis, a very large right-sided staghorn calculus as well as small several stones in the distal right ureter with no distinct stone along the left ureter although there is bilateral hydroureter, reportedly cannot exclude posterior urinary bladder mass with recommended follow-up with urology. In the ED patient ministered normal saline, calcium gluconate, dextrose, insulin, morphine and Zofran. Hospital Course: 1. Acute pancreatitis/CHANTALE on CKD 5 on dialysis/bilateral hydronephrosis with staghorn calculus on the right/UTI with Morganella morganii and Gnnorss-28-dzy[age]-old male presented from home with abdominal pain as well as nausea and vomiting. He was found to have an elevated lipase consistent with pancreatitis. CT scan of his abdomen also demonstrated bilateral hydronephrosis with a staghorn calculus in the right. Urology was consulted but none did not feel that anything need to be done with the staghorn calculus, no stents were placed and just had a Barnes placed. Nephrology was consulted and evaluated his need for dialysis and started him on dialysis which has significantly helped. He will need to proceed with a Barnes, it was removed at one point and he had significant urinary retention therefore he will need to follow-up as an outpatient with urology for evaluation of the Barnes, the urinary retention, and a staghorn calculus on the right. He was treated with antibiotics which did completely treat the Proteus and then he was also transitioned to Ancef which treated the Morganella morganii. He continues to have sediment in his urine and would monitor him outpatient for potential further antibiotics secondary to a staghorn calculus. His pancreatitis is completely resolved and he is tolerating a diet at this time but will need to proceed with SNF discharge secondary to weakness. He will undergo dialysis Thursday. I discussed with him the plan for discharge today and he expressed understanding of the risk benefits of going to SNF and would like to go to the SNF today. 2. Chronic diastolic CHF with nonischemic cardiomyopathy, type 2 diabetes, hypertension, hyperlipidemia, BPH, anemia of chronic disease and iron deficiency anemia, obesity, RAQUEL, are all chronic medical conditions which complicate his care. His home medications were continued where appropriate Physical Exam Const alert, oriented x3 and no apparent distress General Appearance: cooperative HEENT normocephalic and moist oral mucous membranes Eyes PERRL, EOMs intact bilaterally and conjunctivae normal Neck supple and no JVD Resp normal respiratory effort, no retractions, no use of accessory muscles and clear to auscultation bilaterally Auscultation: Negative for crackles, rales, rhonchi or wheezes Cardio regular rate, regular rhythm, S1 normal heart sound, S2 normal heart sound and no murmurs GI soft to palpation, non-tender and non-distended; Negative for hepatosplenomegaly Extremity no clubbing, cyanosis or edema Skin no rashes or lesions noted Neuro no focal motor deficits and no sensory deficits noted Psych affect normal Appearance: appropriate Medical Records Data Medical Nutrition Assessment Dietitian: Nutrition Therapy Diagnosis Start: 03/18/21 09:54 Freq: Status: Active Protocol: Document 03/25/21 15:19 RMA (Rec: 03/25/21 15:19 RMA [id number]) Nutrition Malnutrition Evidence of Malnutrition Exists No Intake Problem Decreased Nutrient Needs (specify) Etiology for sodium related to CKD Signs/Symptoms as evidenced by BUN 29/creat 4 .02 Status Active Problem Recommendation Dietitian Recommendations/Changes Will change diet to Carbohydrate-Controlled/ Cardiac, sodium-restricted. Will d/c 120ml Nepro TID w/ meals since appetite improved. Weight / BMI Weight Weight: 289 lb 0.416 oz Body Mass Index (BMI) 39.8 ABG / Lab / Microbiology Data Result Diagrams: 03/26/21 05:08 03/26/21 05:08 Laboratory: Laboratory Results - last 24 hr 03/25/21 17:14: POC Glucose 113 H 03/25/21 22:13: POC Glucose 132 H 03/26/21 05:08: Sodium 138, Potassium 3.0 L, Chloride 107, Carbon Dioxide 21.0, BUN 37 H, Creatinine 5.55 H, Estim Creat Clear Calc 14.70, Est GFR (MDRD) Af Amer 14 L, Est GFR (MDRD) Non-Af 11 L, BUN/Creatinine Ratio 6.7 L, Glucose 105, Calcium 7.9 L, Phosphorus 2.4 L, Albumin 2.4 L 03/26/21 05:08: WBC 9.9, RBC 3.77 L, Hgb 9.1 L, Hct 31.3 L, MCV 83.0, MCH 24.1 L, MCHC 29.1 L, RDW Std Deviation 57.8 H, RDW Coeff of Jeffrey 19.4 H, Plt Count 125 L, Immature Gran % (Auto) 1.400 H, Neut % (Auto) 65.2, Lymph % (Auto) 13.8 L, Sierra % (Auto) 12.2 H, Eos % (Auto) 6.7 H, Baso % (Auto) 0.7, Absolute Neuts (auto) 6.5, Absolute Lymphs (auto) 1.37, Nucleated RBC % 0 03/26/21 06:43: POC Glucose 102 03/26/21 11:32: POC Glucose 111 H Microbiology: Microbiology 03/26/21 11:14 Mucosa - Nasopharyngeal SARS-CoV-2 Antigen (Rapid) - Final 03/19/21 22:30 Urine Catheter - Barnes Urine Culture - Final Morganella morganii sp sibonii Proteus mirabilis 03/18/21 12:55 Mucosa - Nose SARS-CoV-2 Antigen (Rapid) - Final Meaningful Use Info Meaningful Use Diagnoses (Choose all that apply): None applicable Discharge Plan Admission Admit Date/Time: 03/18/21 04:01 Attending Provider: Toni Null Primary Care Provider: Juany Wylie Consulting Providers: Omaira Chavez ; Nile Sow ; Annmarie Shabazz Discharge Orders/Prescriptions Prescriptions: Continued tamsulosin 0.4 mg capsule 0.4 mg PO DAILY RF: 0 allopurinol 300 MG tablet 150 mg PO DAILY RF: 0 carvedilol 25 mg tablet 37.5 mg PO BID RF: 0 linagliptin 5 MG tablet 5 mg PO DAILY RF: 0 latanoprost 1 DROP bottle 1 drp EACH EYE DAILY RF: 0 ammonium lactate 226 GM lotion 1 applicatio TP DAILY PRN PRN (Reason: IRRITATION) RF: 0 amlodipine 10 mg tablet 10 mg PO DAILY RF: 0 ferrous sulfate 325 mg (65 mg iron) tablet 325 mg PO BID Qty: 14 RF: 0 Referrals / Follow Up: Juany Wylie MD [Primary Care Provider] - Disposition Disposition (needs filled in before D/C Order can be placed): [facility] Facility Charges/Coding Visit Charges Inpatient E&M: 00688 Disch Hosp
== END 2021-03-26 15:00 | disposition skilled nursing facility (03) | DRG 469 ==
LOC: ED 03-18 04:01 → PCU 03-18 05:01
PROVIDERS: Internal Medicine; Internal Medicine Nephrology; Surgery; Admitting Provider Family Medicine; Emergency Provider Emergency Medicine; PCP Internal Medicine; Visit Provider Family Medicine
PROC: 0JH63XZ Insertion of Tunneled Vascular Access Device into Chest Subcutaneous Tissue and Fascia, Percutaneous Approach (ICD-10-PCS; principal; 2021-03-18 15:15)
DX: N17.9 Acute kidney failure, unspecified (principal); I13.2 Hypertensive heart and chronic kidney disease with heart failure and with stage 5 chronic kidney disease, or end stage renal disease; I50.32 Chronic diastolic (congestive) heart failure; E11.22 Type 2 diabetes mellitus with diabetic chronic kidney disease; N18.5 Chronic kidney disease, stage 5; N13.6 Pyonephrosis; B96.4 Proteus (mirabilis) (morganii) as the cause of diseases classified elsewhere; E87.2 Acidosis; K85.90 Acute pancreatitis without necrosis or infection, unspecified; E83.39 Other disorders of phosphorus metabolism; E87.6 Hypokalemia; R33.8 Other retention of urine; D50.9 Iron deficiency anemia, unspecified; D63.8 Anemia in other chronic diseases classified elsewhere; E87.5 Hyperkalemia; N25.81 Secondary hyperparathyroidism of renal origin; Z20.822 Contact with and (suspected) exposure to COVID-19; I42.8 Other cardiomyopathies; I47.2 Ventricular tachycardia; E78.5 Hyperlipidemia, unspecified; N40.0 Benign prostatic hyperplasia without lower urinary tract symptoms; R29.6 Repeated falls; G47.33 Obstructive sleep apnea (adult) (pediatric); E66.01 Morbid (severe) obesity due to excess calories; Z68.39 Body mass index [BMI] 39.0-39.9, adult; Z79.84 Long term (current) use of oral hypoglycemic drugs; Z79.899 Other long term (current) drug therapy; Z95.810 Presence of automatic (implantable) cardiac defibrillator
CPT/HCPCS: 36415; 71045; 74176; 76705; 77001; 80048; 80053; 80061; 80069; 80307; 81001; 82077; 82570; 82962; 83540; 83550; 83690; 83735; 83880; 84100; 84300; 85025; 85610; 86704; 86706; 87077; 87086; 87088; 87186; 87340; 87426; 90937; 93005; 97110; 97116; 97162; 97166; 97530; 97535; 99285; J7030; J7040; A4216; C1750; G0257; J0610; J2405

== ENCOUNTER → 2021-04-01 04:00 | Outpatient (REF) | payer MEDICAID, SELFPAY ==
[2021-03-18 04:11] VITALS: BMI 39.8
[2021-04-01 06:50] LABS: Hematocrit 30.9 % (40-54); Hemoglobin 9.2 g/dL (13.0-16.5); Mean Corp Hgb Conc 29.8 g/dL (32-36); Mean Corpuscular Hgb 24.7 pg (27.0-32.0); Mean Corpuscular Volume 83.1 fL (80-94); Mean Platelet Vol. 10.6 fl (6.2-12.0); Platelet Count 158 K/mm3 (150-450); RBC Distribution Width CV 19.8 % (11.6-14.6); RBC Distribution Width SD 59.1 fl (35.1-43.9); Red Blood Count 3.72 M/mm3 (4.6-6.2); White Blood Count 8.8 K/mm3 (4.4-11.0)
[2021-04-01 07:17] LABS: ALB/GLOB Ratio 0.8 RATIO (0.9-2.4); AST(SGOT) 73 U/L (15-37); Alanine Aminotransfer ALT/SGPT 29 U/L (16-61); Albumin, Serum 2.8 g/dL (3.2-5.0); Alkaline Phosphatase 101 U/L (45-117); Amylase 70 U/L (25-115); Anion Gap 11 (5-15); BUN 54 mg/dL (7-18); BUN/Creat Ratio 7.7 RATIO (10-20); Calcium,Total 8.4 mg/dL (8.5-10.1); Chloride 102 mmol/L (98-107); EST Glomerular Filtration Rate 9 mL/min (>60); Est Glom Filt Rate - Afr Amer 10 mL/min (>60); Globulin 3.7 g/dL (2.2-4.2); Glucose 95 mg/dL (74-106); Lipase 462 U/L (73-393); Magnesium 1.9 mg/dL (1.6-2.6); Phosphorus 5.9 mg/dL (2.5-4.9); Potassium 3.5 mmol/L (3.5-5.1); Protein, Total 6.5 g/dL (6.4-8.2); Sodium Level 136 mmol/L (136-145)
== END ==
LOC: OLS.SW300 04:00
PROVIDERS: PCP Internal Medicine; Visit Provider Internal Medicine
DX: K85.90 Acute pancreatitis without necrosis or infection, unspecified (principal); N17.9 Acute kidney failure, unspecified
CPT/HCPCS: 36415; 80053; 82150; 83690; 83735; 84100; 85027

== ENCOUNTER 2021-04-01 08:29 | Day surgery (SDC) | payer MEDICAID, SELFPAY ==
[2021-02-22 05:18] VITALS: BMI 43.7
[2021-03-18 04:11] VITALS: BMI 39.8
[2021-04-01] VITALS (10 sets, daily range): BP systolic 95–139; BP diastolic 64–81; PULSE 64–77; RESP 6–16; TEMP 36.1–36.8; O2SAT 95–100; BMI 39.6
--- NOTE | 2021-04-01 09:14 | HP.PCM_ITS ---
History and Physical Date of Admission: 04/01/21 No Known Allergies Allergy (Verified 02/22/21 09:56) Medications allopurinol 150 mg PO DAILY 01/27/16 [History Confirmed 02/22/21] carvedilol 37.5 tab PO BID 01/27/16 [History Confirmed 02/22/21] linagliptin 5 mg PO DAILY 08/05/17 [History Confirmed 02/22/21] ammonium lactate 1 applicatio TP DAILY PRN PRN 12/23/18 [History Confirmed 02/22/21] latanoprost 1 drp EACH EYE DAILY 12/23/18 [History Confirmed 02/22/21] tamsulosin 0.4 mg capsule 0.4 mg PO DAILY 06/21/19 [History Confirmed 02/22/21] amlodipine 10 mg PO DAILY 01/24/21 [History Confirmed 02/22/21] lisinopril 5 mg PO DAILY 01/24/21 [History Confirmed 02/22/21] ferrous sulfate 325 mg PO BID #14 tab 01/28/21 [Rx Confirmed 02/22/21] PFSH Medical History Chronic diastolic (congestive) heart failure CKD (chronic kidney disease), stage III Diabetes mellitus, type II Essential (primary) hypertension Falls frequently HLD (hyperlipidemia) Hyperosmolar non-ketotic state in patient with type 2 diabetes mellitus Implantable cardioverter-defibrillator (ICD) in situ Left bundle branch block (LBBB) Morbid obesity Non-ischemic cardiomyopathy Nonsustained ventricular tachycardia RAQUEL (obstructive sleep apnea) Right foot drop Venous ulcer of left lower extremity without varicose veins Surgical History H/O skin graft Family History Father Hypertension Heart disease Diabetes Mother Diabetes Social History Smoking Status: Never smoker substance use type: does not use HPI HPI HPI: JUVENCIO QUINTERO, is a 60 M who presents to the office today for surgical consultation regarding creation of an arteriovenous hemodialysis fistula. The patient is a type II diabetic with history of recent acute kidney injury and stage IV chronic renal disease. In addition he has an implantable pacer defibrillator. This is located on the left chest likely involving the left subclavian vein. As of January 28, 2021 hemoglobin was 8.5 with hematocrit of 28.3 and a platelet count of 209,000. BUN was 109 and creatinine 6 with an estimated creatinine clearance of 13.6 mm/min. His hemoglobin A1c was 6.5. At that time his potassium level was 4.2. The patient denies any previous right upper extremity surgery. He states that he recently had blood work drawn from the right antecubital space. He is aware that he likely is not a candidate for left upper extremity fistula because of his defibrillator The patient is referred by Dr. Omaira Chavez and a written copy my surgical consult and recommendations will return to her. Primary care physician is Dr. Juany Wylie. February 12, 2021 Reason For Study: CKD Stage 4 Right Arm Left Arm Right Cephalic Vein at the wrist measures Left Cephalic Vein at the wrist measures 0.22 x 0.22 cm. 0.27 x 0.31 cm. Right Cephalic Vein in the forearm measures Left Cephalic Vein in the forearm measures 0.26 x 0.26 cm. 0.20 x 0.21 cm. Right Cephalic Vein below antecub measures Left Cephalic Vein below antecub measures 0.26 x 0.25 cm. 0.24 x 0.27 cm. Right Cephalic Vein above antecub measures Left Cephalic Vein above antecub measures 0.13 x 0.13 cm. 0.13 x 0.15 cm. Right Cephalic Vein mid bicep measures 0.09 Left Cephalic Vein at mid bicep measures x 0.11 cm. 0.14 x 0.13 cm. Right Cephalic Vein at the shoulder measures Left Cephalic Vein at the shoulder measures 0.09 x 0.11 cm. 0.16 x 0.18 cm. Right Basilic Vein at the origin measures Basilic vein at origin measures 0.33 x 0.31 0.29 x 0.28 cm. cm. Right Basilic Vein mid bicep measures 0.23 x Basilic vein at bicep measures 0.26 x 0.23 0.26 cm. cm. Right Basilic Vein above antecub measures Basilic vein above antecub measures 0.18 x 0.19 x 0.20 cm. 0.18 cm. Right Brachial Artery measures 0.47 x 0.47 Left Brachial Artery measures 0.43 x 0.43 cm cm with velocity of 80.3 cm/sec. with a velocity of 97.9 cm/sec. Right Radial Artery measures 0.21 x 0.20 cm Left Radial Artery measures 0.18 x 0.17 cm with a velocity of 68.6 cm/sec. with a velocity of 63. 1 cm/sec. VL/Saphenous Vein Mapping, Bilat Interpretation Summary Patent and compressible bilateral upper extremity cephalic and basilic veins with dimensions as noted. Borderline right radial artery with small left radial artery. Adequate diameter and flow bilateral brachial arteries Ordering Physician: Omaira Chavez Referring Physician: Juany Wylie M.D. Performed By: Megha Velazquez RVT and Student General General: No weight change, appetite, fatigue, colon cancer, breast cancer or weakness HEENT HEENT: No difficulty swallowing, eye injury, eye surgery, swollen glands or hoarseness Endo Endocrine: Yes diabetes mellitus; No thyroid disease, thyroid cancer, Hair loss, heat intolerance or cold intolerance Skin Skin: No rash or changing moles Breast Breast: No left breast lump, right breast lump, nipple discharge, breast pain, abnormal mammogram, abnormal US or breast enlargement Musc Musculoskeletal: Yes gout; No back problems, arthritis, rheumatoid arthritis or joint pain Cardio Cardiovascular: Yes heart disease, atrial fibrillation and high blood pressure; No murmur, pacemaker, heart attack, heart stent, palpitations, shortness of breat with exertion or chest pain Psych Psychiatric: No depression, anxiety or hearing voices Resp Respiratory: No shortness of breath, Yes sleep apnea, No cough, No COPD, No asthma, No emphysema and No wheezing Gastro Gastrointestinal: No abdominal pain, No nausea or vomiting, Yes diarrhea, No constipation, No blood in stool, No acid reflux, No hemorrhoids, No ulcers, No gallbladder problem and No black,tarry stools Antonio Hematologic: No blood thinners, No blood disorders, No bleeding, No anemia and No blood clots Neuro Neurologic: No system reviewed and no additional complaints, except as documented, No as per HPI, No abnormal gait, No abnormal hearing, No abnormal movements, No abnormal speech, No behavioral changes, No burning sensations, No confusion, No convulsions, No disequilibrium, No dizziness, No localized weakness, No frequent falls, No headache(s), No lack of coordination, No loss of vision, No memory loss, No numbness, No other visual disturbances, No radicular pain, No restless legs, No sensory deficit, No syncope, No tingling, No tremor(s), No weakness and No other Exam Const General: cooperative, comfortable and no acute distress Nutritional Appearance: obese Orientation: alert and awake HENFL Head: normal to inspection Eyes General: appearance normal, both eyes and all related structures Chest Other: Increased anterior posterior diameter Resp Effort & Inspection: normal respiratory effort Auscultation: clear to auscultation bilaterally Cardio Rate: regular rate Rhythm: regular rhythm GI Other: Markedly overweight. I cannot detect any internal organs Musc Cervical Spine: normal cervical lordosis Neuro Other: Patient seems to be aware of his situation in place. Extrem General: edema Laterality: bilateral Psych Attitude: cooperative COVID (Procedure Consent) Procedure Criteria Procedure Criteria: Yes Elective The surgeon/proceduralist and patient have discussed in detail the risk of exposure to and/or potential harm posed by the COVID-19 virus with having a surgery/procedure at this time versus the risk of delaying the surgery/procedure. It is not possible to know either the risk of delaying the surgery or procedure or chance of getting an infection with perfect accuracy, but a joint decision was made between the patient and the surgeon/proceduralist to proceed at this time with the scheduled surgery/procedure as indicated on the consent form. Assessment and Plan Assessment and Plan (1) Anemia due to stage 4 chronic kidney disease: Status: Acute Plan Details Additional Comments: I performed a ultrasound inspection of his right upper extremity. The right forearm cephalic vein appears to be adequate. He has a 2- 3+ right radial pulse. Tone test demonstrate adequate ulnar flow. Unfortunately at the antecubital space the cephalic vein seems to branch and become more diminutive. Because of the patient's body habitus the basilic vein is located quite far medially and there is significant amount of fibrofatty tissue in the upper arm. His left chest has the pacemaker defibrillator This will be a technically more difficult and challenging fistula creation. No guarantees of success. I would propose a right forearm radiocephalic arteriovenous fistula. He is aware of the technique, benefit, risk, alternatives. He will need to then be observed for hand or forearm swelling and if this occurs would consider early attempt at endovascular invention aimed at the antecubital space. I am hoping that he has adequate venous outflow in the upper arm. The only other future potential option I might see would be a left upper arm basilic to brachial artery AV fistula however this also would be technically quite challenging due to the patient's body habitus and positioning of the vein. I appreciate the opportunity of assisting with the surgical care Copy: Dr. Juany Wylie and Dr. Omaira Moya M.D., F.A.C.S. Since the patient is office visit he was emergently hospitalized with acute exacerbation of his kidney failure. Dr. Shabazz placed tunneled right internal jugular hemodialysis catheter is in the patient's been on dialysis since. Assessment & Plan Assessment/Plan (1) CKD stage 5 due to type 2 diabetes mellitus: PLAN: The patient has a wristband on the right wrist trying to save the right extremity for fistula. The cephalic vein of the upper arm is questionable. I anticipate a right forearm radiocephalic arteriovenous fistula. The patient has had pacemaker defibrillator left chest which eliminates his left upper extremity. We will proceed as noted. Paul Moya M.D., F.A.C.S.
[2021-04-01] MEDS: Lactated Ringers 1,000 ML 100 ML IV (09:52)
--- NOTE | 2021-04-01 09:52 | EX.PCM.DISCH ---
Discharge Instructions Procedure Fistula Diet Discharge Diet: Renal Diet Activity Discharge Activity: May Not Drive (for 2-3 days or while taking narcotic pain medications.), May Shower and May Take a Tub Bath (in 5 days.) Lifting Restrictions: 5 pounds Keep extremity elevated above heart level: - (Keep arm elevated above the heart level for 3 days.) Dressing / Incision Call your doctor if your incision/area has: Continuous Slow Oozing, Sudden Increased Bleeding (apply pressure and call your doctor.), Increased Pain/ Swelling, Increased Redness and Foul Smelling Discharge Call your doctor if you observe: Fever of 101 or Higher Suture Line Care: Avoid Pulling/Pushing and Avoid Pinching/Bending Cleanse incision/area with: Keep Dressing Clean & Dry Additional Dressing/Incision Instructions:: Change or remove dressing in one day. May protect with a gauze bandaid. Follow Up Care Please Follow Up With: Paul Moya MD When: Call [phone] to make an appointment for suture removal and follow up in 1 week. Test Results: Test results from this visit will be discussed in further detail at your follow-up appointment, if applicable. Discharge Plan Admission Attending Provider: Paul Moya Primary Care Provider: Juany Wylie Discharge Orders/Prescriptions Prescriptions: No Action tamsulosin 0.4 mg capsule 0.4 mg PO DAILY RF: 0 allopurinol 300 MG tablet 150 mg PO DAILY RF: 0 carvedilol 25 mg tablet 37.5 mg PO DAILY RF: 0 linagliptin 5 MG tablet 5 mg PO DAILY RF: 0 latanoprost 1 DROP bottle 1 drp EACH EYE DAILY RF: 0 ammonium lactate 226 GM lotion 1 applicatio TP DAILY PRN PRN (Reason: IRRITATION) RF: 0 amlodipine 10 mg tablet 10 mg PO DAILY RF: 0 multivitamin Tablet 1 tab PO DAILY RF: 0 ascorbic acid (vitamin C) [Vitamin C] 500 mg Tablet 500 mg PO DAILY RF: 0 vitamin B complex Capsule 1 cap PO DAILY RF: 0 ferrous sulfate 325 mg (65 mg iron) tablet 325 mg PO DAILY RF: 0
[2021-04-01] MEDS: Heparin Injection (Vial) 5,000 UNIT/ML VIAL 5000 UNIT (10:30)
[2021-04-01 10:42] LABS: Bedside Glucose 156 mg/dL (70-110)
[2021-04-01] MEDS: Lidocaine 1% (30 ml sdv) 30 ML Vial (11:11)
[2021-04-01] MEDS: Bupivacaine Mpf 0.5% 30 ML VIAL (11:11)
--- NOTE | 2021-04-01 11:16 | PCM.OPRPT ---
Problems Associated Problem List Diagnoses (1) CKD stage 5 due to type 2 diabetes mellitus: Report of Operation Date of Procedure: 04/01/21 Pre-Operative Diagnosis: Stage V chronic renal insufficiency in need of arteriovenous hemodialysis access Post-Operative Diagnosis: Same Surgery/Procedure Performed:: Right forearm radial to cephalic arteriovenous hemodialysis fistula creation Description of Surgical Findings:: Timeout and informed consent was obtained. 60-year-old gentleman was taken to the operating placed on the table underwent monitored anesthesia care. The right upper extremity was sterilely prepped and draped. Ultrasound mapping of the cephalic vein and radial artery had been performed. Slightly more proximally in the distal third of the forearm at a branch point the cephalic vein I elected to place the fistula. 1% lidocaine mixed 50-50 with 0.5% Marcaine was used as a local anesthetic. A total of 9 cc was used. Local was instilled on the oblique incision was created sharp blunt dissection was performed cephalic vein was dissected free circumferentially hemostasis obtained with hemoclips. Then sharp and blunt dissection was used to identify the radial artery this was dissected free over about 3 cm and elevated. Patient received 10,000 and's of heparin. The vein was ligated distally at a branch point and then that was spatulated. Peripheral vascular clamps were placed on the radial artery and 11 blade was used to make an arteriotomy which was extended with Jaime scissors. A end-to-side venous to arterial anastomosis created with running 7-0 Prolene. Prior to completion there is good antegrade and retrograde flow. The anastomosis was completed. There immediately was good flow in the fistula. The hand was inspected was noted to be viable there was good particularly ulnar triphasic flow distally. The patient received 20 mg of protamine as reversal agent. The subcutaneous tissues were approximated up to 3-0 Vicryl. Skin edges proximal and running septic or 4 Monocryl. Steri-Strips Telfa tape dressings applied. Sponge and instrument and needle counts were reported the surgeon to be correct. Specimens none. Drains none. Blood loss minimal. The patient was taken to the recovery area in satisfactory addition without apparent complication Paul Moya M.D., F.A.C.S. Surgeon: Paul Moya Type of Anesthesia: Local MAC Anesthesiologist: Antoinette Rivers
--- NOTE | 2021-04-01 13:00 | SUR.PHASEII ---
PER DR SANTANA VIA BEN, SIGNAL CONSTRUCTOR, DECEMBER D/C BACK TO [facility]
== END 2021-04-01 13:22 | disposition home or self-care (01) ==
LOC: SDC 08:33 → AC 08:35
PROVIDERS: PCP Internal Medicine; Referring Provider Surgery; Visit Provider Surgery
PROC: (CPT 36818; principal; 2021-04-01 10:15)
DX: E11.22 Type 2 diabetes mellitus with diabetic chronic kidney disease (principal); I13.2 Hypertensive heart and chronic kidney disease with heart failure and with stage 5 chronic kidney disease, or end stage renal disease; N18.5 Chronic kidney disease, stage 5; I50.32 Chronic diastolic (congestive) heart failure; D63.1 Anemia in chronic kidney disease; E78.5 Hyperlipidemia, unspecified; E66.01 Morbid (severe) obesity due to excess calories; Z68.39 Body mass index [BMI] 39.0-39.9, adult; I42.8 Other cardiomyopathies; I47.2 Ventricular tachycardia; N40.0 Benign prostatic hyperplasia without lower urinary tract symptoms; E78.00 Pure hypercholesterolemia, unspecified; I34.0 Nonrheumatic mitral (valve) insufficiency; G47.33 Obstructive sleep apnea (adult) (pediatric); N25.81 Secondary hyperparathyroidism of renal origin; Z87.19 Personal history of other diseases of the digestive system; Z95.810 Presence of automatic (implantable) cardiac defibrillator; Z79.899 Other long term (current) drug therapy; Z79.84 Long term (current) use of oral hypoglycemic drugs
CPT/HCPCS: 01844; 36818; 82962; J7120; J2405

== ENCOUNTER → 2021-04-08 05:00 | Outpatient (REF) | payer MEDICAID, SELFPAY ==
[2021-04-08 09:16] LABS: Hematocrit 32.1 % (40-54); Hemoglobin 9.3 g/dL (13.0-16.5); Mean Corpuscular Hgb 25.1 pg (27.0-32.0); Mean Corpuscular Volume 86.8 fL (80-94); Mean Platelet Vol. 10.5 fl (6.2-12.0); POSITIVE MORPHOLOGY YES; Platelet Count 108 K/mm3 (150-450); RBC Distribution Width CV 20.8 % (11.6-14.6); RBC Distribution Width SD 65.2 fl (35.1-43.9); White Blood Count 8.7 K/mm3 (4.4-11.0)
[2021-04-08 09:49] LABS: ALB/GLOB Ratio 0.9 RATIO (0.9-2.4); AST(SGOT) 36 U/L (15-37); Alanine Aminotransfer ALT/SGPT 32 U/L (16-61); Albumin, Serum 3.1 g/dL (3.2-5.0); Alkaline Phosphatase 87 U/L (45-117); Amylase 82 U/L (25-115); Anion Gap 9 (5-15); BUN 70 mg/dL (7-18); Chloride 106 mmol/L (98-107); Creatinine, Serum 8.79 mg/dL (0.70-1.30); EST Glomerular Filtration Rate 7 mL/min (>60); Est Glom Filt Rate - Afr Amer 8 mL/min (>60); Globulin 3.6 g/dL (2.2-4.2); Glucose 96 mg/dL (74-106); Lipase 498 U/L (73-393); Phosphorus 5.3 mg/dL (2.5-4.9); Potassium 4.9 mmol/L (3.5-5.1); Protein, Total 6.7 g/dL (6.4-8.2); Sodium Level 139 mmol/L (136-145)
[2021-04-08 10:37] LABS: Scan Indicated on CBC? Y/N YES- FLAGS NOTED
== END ==
LOC: OLS.SW300 05:00
PROVIDERS: PCP Internal Medicine; Visit Provider Internal Medicine
DX: N17.9 Acute kidney failure, unspecified (principal); K85.90 Acute pancreatitis without necrosis or infection, unspecified
CPT/HCPCS: 36415; 80053; 82150; 83690; 83735; 84100; 85027

== ENCOUNTER 2021-06-03 19:21 | Emergency (ER) | payer MEDICAID, SELFPAY ==
[2021-06-03 19:22] VITALS: BP 129/83; PULSE 94; RESP 18; TEMP 36.5; O2SAT 97; BMI 37.3
[2021-06-03 19:24] VITALS: BP 129/83; PULSE 94; RESP 18; TEMP 36.5; O2SAT 97
--- NOTE | 2021-06-03 19:41 | EX.ED.DYSGE1 ---
HPI History of Present Illness Chief Complaint: Barnes C/O Narrative Narrative: Patient is a 60-year-old male who states he was just discharged from a nursing home facility today. He reports he has a chronic indwelling Barnes catheter. He reports that the [facility] not give him any supplies at discharge. He states after arriving home he noticed that his catheter bag was leaking. He states that as he has no supplies he did not know what to do besides come to the hospital to see if he can get his Barnes catheter fixed. He states otherwise he has no complaints at this time [facility] Medical History Acute on chronic renal failure Ambulates with cane Anemia due to stage 4 chronic kidney disease Benign prostatic hyperplasia Cardiology follow-up encounter Chronic diastolic (congestive) heart failure Chronic kidney disease, stage 4 (severe) Chronic renal failure, stage 5 CKD (chronic kidney disease), stage III CKD stage 5 due to type 2 diabetes mellitus Diabetes Diabetes mellitus, type II Essential (primary) hypertension Falls frequently Barnes catheter in place Gout High cholesterol History of CHF (congestive heart failure) History of echocardiogram History of renal dialysis HLD (hyperlipidemia) Hydronephrosis concurrent with and due to calculi of kidney and ureter Hyperosmolar non-ketotic state in patient with type 2 diabetes mellitus Hypertension Implantable cardioverter-defibrillator (ICD) in situ Iron deficiency anemia Left bundle branch block (LBBB) Mitral valve regurgitation Morbid obesity Non-ischemic cardiomyopathy Non-smoker Nonsustained ventricular tachycardia Open wound RAQUEL (obstructive sleep apnea) Primary cardiomyopathy Right foot drop Secondary hyperparathyroidism (of renal origin) Venous ulcer of left lower extremity without varicose veins Walker as ambulation aid Wears glasses Home Medications allopurinol 150 mg PO DAILY 01/27/16 [History Last Taken 01/24/21] linagliptin 5 mg PO DAILY 08/05/17 [History Last Taken 01/24/21] ammonium lactate 1 applicatio TP DAILY PRN PRN 12/23/18 [History Last Taken 01/24/21] latanoprost 1 drp EACH EYE DAILY 12/23/18 [History Last Taken 01/23/21] tamsulosin 0.4 mg capsule 0.4 mg PO DAILY 06/21/19 [History Last Taken 01/24/21] amlodipine 10 mg PO DAILY 01/24/21 [History Last Taken 01/24/21] carvedilol 25 mg tablet 37.5 mg PO DAILY tab 02/27/21 [History Last Taken Unknown] ascorbic acid (vitamin C) [Vitamin C] 500 mg PO DAILY 03/28/21 [History Last Taken Unknown] ferrous sulfate 325 mg PO DAILY 03/28/21 [History Last Taken Unknown] multivitamin 1 tab PO DAILY 03/28/21 [History Last Taken Unknown] vitamin B complex 1 cap PO DAILY 03/28/21 [History Last Taken Unknown] acetaminophen [Tylenol] 650 mg PO Q6H PRN PRN #10 tab 04/01/21 [Rx Last Taken Unknown] Allergy/AdvReac Type Severity Reaction Status Date / Time No Known Allergies Allergy Verified 05/28/21 13:15 Family History Father Hypertension Heart disease Diabetes Mother Diabetes Chronic kidney disease Hypertension Anemia Surgical History H/O skin graft History of implantable cardiac defibrillator (ICD) Hx of appendectomy Hx of tonsillectomy Status post tonsillectomy and adenoidectomy Social History household members: none Smoking Status: Never smoker alcohol intake: never substance use type: does not use caffeine: Yes ROS ROS ED Constitutional Constitutional ED: Denies chills or fever(s) ENT ENT ED: Denies sore throat Cardiovascular Cardiovascular: Denies chest pain Respiratory/Chest Respiratory/Chest: Denies cough or dyspnea Gastrointestinal Gastrointestinal: Denies abdominal pain, diarrhea, nausea or vomiting Genitourinary Genitourinary ED: Denies dysuria Musculoskeletal Musculoskeletal: Denies myalgias Integumentary Denies rash Neurologic Neurologic: Denies headache(s) Hematologic/Lymphatic Hematologic/Lymphatic: Denies easy bleeding or easy bruising EXAM Physical Exam Const Vital Signs: 06/03/21 19:22 06/03/21 19:24 Temperature 97.7 F L 97.7 F L Temperature Source Oral Oral Pulse Rate 94 94 Respiratory Rate 18 18 Blood Pressure 129/83 H 129/83 H Blood Pressure Mean 98 98 Pulse Ox 97 97 Oxygen Delivery Method Room Air Room Air Positive well nourished and well developed General Appearance ED: well developed Eyes PERRL and EOMs intact bilaterally Neck supple Resp normal respiratory effort and clear to auscultation bilaterally Cardio regular rate and regular rhythm GI non-tender and non-distended Auscultation: normoactive bowel sounds Palpation: soft Back/Spine no CVA tenderness Extremity normal to inspection Neuro oriented x3 and CN's II-XII intact bilaterally Sensorium / Orientation: alert Psych mental status grossly normal Skin no rashes or lesions noted MDM MDM MDM Narrative Medical decision making narrative: Patient presented to the ER in no acute distress. His only reason for presentation was that his Barnes catheter bag was torn and was leaking. Therefore this time I do not feel there is need for imaging or laboratory studies as vitals are stable and exam is nonfocal. The Barnes catheter bag was replaced which was the patient's main reason for presenting to the ER today and therefore he is safe for discharge. Discharge Plan Triage Chief Complaint: Barnes C/O ED Provider: Mitesh Quezada Dx/Rx/DC Orders Clinical Impression: Malfunction of Barnes catheter Instructions: ED Barnes Catheter, Care Prescriptions: No Action tamsulosin 0.4 mg capsule 0.4 mg PO DAILY RF: 0 allopurinol 300 MG tablet 150 mg PO DAILY RF: 0 carvedilol 25 mg tablet 37.5 mg PO DAILY RF: 0 linagliptin 5 MG tablet 5 mg PO DAILY RF: 0 latanoprost 1 DROP bottle 1 drp EACH EYE DAILY RF: 0 ammonium lactate 226 GM lotion 1 applicatio TP DAILY PRN PRN (Reason: IRRITATION) RF: 0 amlodipine 10 mg tablet 10 mg PO DAILY RF: 0 multivitamin Tablet 1 tab PO DAILY RF: 0 ascorbic acid (vitamin C) [Vitamin C] 500 mg Tablet 500 mg PO DAILY RF: 0 vitamin B complex Capsule 1 cap PO DAILY RF: 0 ferrous sulfate 325 mg (65 mg iron) tablet 325 mg PO DAILY RF: 0 acetaminophen [Tylenol] 325 mg Tablet 650 mg PO Q6H PRN PRN (Reason: Pain Score 1-10) Qty: 10 RF: 0 Primary Care Provider: Juany Wylie Referrals: Juany Wylie MD [Primary Care Provider] - Disposition Disposition: Home, Self Care
--- NOTE | 2021-06-03 19:42 | ED.RN ---
PLACED NEW AMES BAG ON PT AND GAVE INSTRUCTIONS FOR OPERATION.
== END 2021-06-03 19:51 | disposition home or self-care (01) ==
PROVIDERS: Emergency Provider Emergency Medicine; PCP Internal Medicine
DX: T83.031A Leakage of indwelling urethral catheter, initial encounter (principal); Y84.6 Urinary catheterization as the cause of abnormal reaction of the patient, or of later complication, without mention of misadventure at the time of the procedure; Y92.9 Unspecified place or not applicable; I13.2 Hypertensive heart and chronic kidney disease with heart failure and with stage 5 chronic kidney disease, or end stage renal disease; I50.32 Chronic diastolic (congestive) heart failure; E11.22 Type 2 diabetes mellitus with diabetic chronic kidney disease; N18.4 Chronic kidney disease, stage 4 (severe); D63.1 Anemia in chronic kidney disease; D50.9 Iron deficiency anemia, unspecified; I42.9 Cardiomyopathy, unspecified; I47.2 Ventricular tachycardia; E78.5 Hyperlipidemia, unspecified; N40.0 Benign prostatic hyperplasia without lower urinary tract symptoms; M10.9 Gout, unspecified; G47.33 Obstructive sleep apnea (adult) (pediatric); E66.01 Morbid (severe) obesity due to excess calories; Z99.2 Dependence on renal dialysis; Z79.84 Long term (current) use of oral hypoglycemic drugs; Z79.899 Other long term (current) drug therapy; Z95.810 Presence of automatic (implantable) cardiac defibrillator
CPT/HCPCS: 99284

== ENCOUNTER 2021-07-16 00:49 | Emergency (ER) | payer MEDICAID, SELFPAY ==
[2021-07-16 00:52] VITALS: BP 156/92; PULSE 84; RESP 16; TEMP 36.6; O2SAT 99; BMI 39.0
--- NOTE | 2021-07-16 00:56 | ED.RN ---
A NEW AMES BAG PLACED AND A NEW STAT LOCK PLACED
--- NOTE | 2021-07-16 01:05 | EX.ED.DYSGE1 ---
HPI History of Present Illness Chief Complaint: Other, Pain/Inj Narrative Narrative: Patient is a 60-year-old male with a chronic indwelling Barnes catheter. He states that he noticed this evening that there was a pinhole leak. He states that he did not have any supplies to change the bag at home and was concerned because of the persistent leakage and did not want to get urine all over his home and therefore called EMS to bring him in for evaluation. Otherwise patient denies any abdominal pain fevers chills or genital trauma. [facility] Medical History Acute on chronic renal failure Ambulates with cane Anemia due to stage 4 chronic kidney disease Benign prostatic hyperplasia Cardiology follow-up encounter Chronic diastolic (congestive) heart failure Chronic kidney disease, stage 4 (severe) Chronic renal failure, stage 5 CKD (chronic kidney disease), stage III CKD stage 5 due to type 2 diabetes mellitus Diabetes Diabetes mellitus, type II Essential (primary) hypertension Falls frequently Barnes catheter in place Gout High cholesterol History of CHF (congestive heart failure) History of echocardiogram History of renal dialysis HLD (hyperlipidemia) Hydronephrosis concurrent with and due to calculi of kidney and ureter Hyperosmolar non-ketotic state in patient with type 2 diabetes mellitus Hypertension Implantable cardioverter-defibrillator (ICD) in situ Iron deficiency anemia Left bundle branch block (LBBB) Mitral valve regurgitation Morbid obesity Non-ischemic cardiomyopathy Non-smoker Nonsustained ventricular tachycardia Open wound RAQUEL (obstructive sleep apnea) Primary cardiomyopathy Right foot drop Secondary hyperparathyroidism (of renal origin) Venous ulcer of left lower extremity without varicose veins Walker as ambulation aid Wears glasses Home Medications allopurinol 150 mg PO DAILY 01/27/16 [History Last Taken 01/24/21] linagliptin 5 mg PO DAILY 08/05/17 [History Last Taken 01/24/21] ammonium lactate 1 applicatio TP DAILY PRN PRN 12/23/18 [History Last Taken 01/24/21] latanoprost 1 drp EACH EYE DAILY 12/23/18 [History Last Taken 01/23/21] tamsulosin 0.4 mg capsule 0.4 mg PO DAILY 06/21/19 [History Last Taken 01/24/21] amlodipine 10 mg PO DAILY 01/24/21 [History Last Taken 01/24/21] carvedilol 25 mg tablet 37.5 mg PO DAILY tab 02/27/21 [History Last Taken Unknown] ascorbic acid (vitamin C) [Vitamin C] 500 mg PO DAILY 03/28/21 [History Last Taken Unknown] ferrous sulfate 325 mg PO DAILY 03/28/21 [History Last Taken Unknown] multivitamin 1 tab PO DAILY 03/28/21 [History Last Taken Unknown] vitamin B complex 1 cap PO DAILY 03/28/21 [History Last Taken Unknown] acetaminophen [Tylenol] 650 mg PO Q6H PRN PRN #10 tab 04/01/21 [Rx Last Taken Unknown] Allergy/AdvReac Type Severity Reaction Status Date / Time No Known Allergies Allergy Verified 05/28/21 13:15 Family History Father Hypertension Heart disease Diabetes Mother Diabetes Chronic kidney disease Hypertension Anemia Surgical History H/O skin graft History of implantable cardiac defibrillator (ICD) Hx of appendectomy Hx of tonsillectomy Presence of biventricular implantable cardioverter-defibrillator (ICD) Status post tonsillectomy and adenoidectomy Social History household members: none Smoking Status: Never smoker alcohol intake: never substance use type: does not use caffeine: Yes ROS ROS ED Constitutional Constitutional ED: Denies chills or fever(s) Cardiovascular Cardiovascular: Denies chest pain Respiratory/Chest Respiratory/Chest: Denies cough or dyspnea Gastrointestinal Gastrointestinal: Denies abdominal pain, diarrhea, nausea or vomiting Genitourinary Genitourinary ED: Denies dysuria Musculoskeletal Musculoskeletal: Denies myalgias Integumentary Denies rash Neurologic Neurologic: Denies headache(s) EXAM Physical Exam Const Vital Signs: 07/16/21 00:52 07/16/21 00:54 Temperature 97.8 F Temperature Source Temporal Pulse Rate 84 Respiratory Rate 16 Respiratory Effort Normal Non-Labored Respiratory Pattern Normal Blood Pressure 156/92 H Blood Pressure Mean 113 Pulse Ox 99 Oxygen Delivery Method Room Air Positive well nourished, well developed and obese General Appearance ED: well developed Nutritional Appearance: obese Eyes PERRL and EOMs intact bilaterally Neck supple Resp normal respiratory effort and clear to auscultation bilaterally Cardio regular rate and regular rhythm GI normal to inspection, nondistended, normoactive bowel sounds, non-tender, non-distended and no masses GI Narrative: No voluntary guarding or rigidity no pulsatile mass or organomegaly noted Auscultation: normoactive bowel sounds Palpation: soft Back/Spine no CVA tenderness Extremity normal to inspection Neuro oriented x3 and CN's II-XII intact bilaterally Sensorium / Orientation: alert Psych mental status grossly normal Skin no rashes or lesions noted MDM MDM MDM Narrative Medical decision making narrative: Patient presented to the ER in no acute distress with no report or signs of trauma. He stated that his Barnes catheter bag had developed leaking as he did not have supplies to change it was concerned and called EMS. Therefore at this time as his exam does not show any obvious changes to suggest infection or urinary retention I do not feel there is need for work-up. Patient had the Barnes catheter bag changed and at this time is safe for discharge. Discharge Plan Triage Chief Complaint: Other, Pain/Inj ED Provider: Mitesh Quezada Dx/Rx/DC Orders Clinical Impression: Barnes catheter problem Instructions: ED Barnes Catheter, Care Prescriptions: No Action tamsulosin 0.4 mg capsule 0.4 mg PO DAILY RF: 0 allopurinol 300 MG tablet 150 mg PO DAILY RF: 0 carvedilol 25 mg tablet 37.5 mg PO DAILY RF: 0 linagliptin 5 MG tablet 5 mg PO DAILY RF: 0 latanoprost 1 DROP bottle 1 drp EACH EYE DAILY RF: 0 ammonium lactate 226 GM lotion 1 applicatio TP DAILY PRN PRN (Reason: IRRITATION) RF: 0 amlodipine 10 mg tablet 10 mg PO DAILY RF: 0 multivitamin Tablet 1 tab PO DAILY RF: 0 ascorbic acid (vitamin C) [Vitamin C] 500 mg Tablet 500 mg PO DAILY RF: 0 vitamin B complex Capsule 1 cap PO DAILY RF: 0 ferrous sulfate 325 mg (65 mg iron) tablet 325 mg PO DAILY RF: 0 acetaminophen [Tylenol] 325 mg Tablet 650 mg PO Q6H PRN PRN (Reason: Pain Score 1-10) Qty: 10 RF: 0 Primary Care Provider: Juany Wylie Referrals: Juany Wylie MD [Primary Care Provider] - Disposition Disposition: Home, Self Care
== END 2021-07-16 04:18 | disposition home or self-care (01) ==
PROVIDERS: Emergency Provider Emergency Medicine; PCP Internal Medicine
DX: T83.038A Leakage of other urinary catheter, initial encounter (principal); E66.9 Obesity, unspecified; I13.2 Hypertensive heart and chronic kidney disease with heart failure and with stage 5 chronic kidney disease, or end stage renal disease; I50.32 Chronic diastolic (congestive) heart failure; I42.9 Cardiomyopathy, unspecified; E11.22 Type 2 diabetes mellitus with diabetic chronic kidney disease; G47.33 Obstructive sleep apnea (adult) (pediatric); N18.5 Chronic kidney disease, stage 5; N40.0 Benign prostatic hyperplasia without lower urinary tract symptoms; Z99.2 Dependence on renal dialysis; Z79.84 Long term (current) use of oral hypoglycemic drugs; Z79.899 Other long term (current) drug therapy
CPT/HCPCS: 99284

== ENCOUNTER 2022-02-10 08:30 | Outpatient (RCR) | payer MEDICAID, SELFPAY ==
[2022-02-03 08:34] VITALS: BP 141/69; PULSE 83; TEMP 36.1; BMI 39.0
--- NOTE | 2022-02-03 12:28 | HP.PCM_ITS ---
History of Present Illness Date of Service: 02/03/22 Chief Complaint: nonhealing ulcer of left medial lower leg History of Wound: Ernesto is a 61 yo male with PMH of DM type 2, gout, cardiomyopathy with AICD, mitral valve disease, CKD on dialysis T-TH-Sat and history of falls. He had a right forearm fistula placed 04/06. He is a poor historian. He lives at home. He has a hospital bed to sleep in but admits to sleeping often in a chair. He ambulates with a wheeled walker. He is not sure how long he has had the ulcer on his left medial leg. He states that it has been awhile. It has been several months, but not more than 6 months. He had 3 ulcers but it is down to one. He gets the ulcer dressed with gauze while at hemodialysis. He does not change the dressing while at home. He lives at home alone and has a health aide come in a few times per week. He states that it has some drainage, but not much. He denies fever, chills, nausea and vomiting. He denies wearing any compression. Progress of Wound: Left medial leg ulcer is superficial. There is small amount of serous drainage. The ulcer has dry scabbing slough surrounding the ulcer. He has +2 pitting edema. [facility] Medical History (Reviewed 02/04/22 @ 11:01 by Radha Bolton DISABILITIES SERVICES OFFICER, DISABILITIES SERVICES OFFICER-C) Acute on chronic renal failure Ambulates with cane Benign prostatic hyperplasia Chronic diastolic (congestive) heart failure CKD stage 5 due to type 2 diabetes mellitus Diabetes mellitus, type II End-stage renal disease on hemodialysis Essential hypertension Falls frequently Lucero catheter in place Gout History of renal dialysis Hydronephrosis concurrent with and due to calculi of kidney and ureter Hyperlipidemia Hyperosmolar non-ketotic state in patient with type 2 diabetes mellitus Iron deficiency anemia Left bundle branch block (LBBB) Morbid obesity Non-ischemic cardiomyopathy Non-smoker Nonsustained ventricular tachycardia Open wound RAQUEL (obstructive sleep apnea) Right foot drop Secondary hyperparathyroidism (of renal origin) Venous ulcer of left lower extremity without varicose veins Walker as ambulation aid Wears glasses Home Medications allopurinol 300 mg tablet 150 mg PO DAILY GOUT 01/27/16 [History Last Taken 01/24/21] linagliptin 5 mg tablet 5 mg PO DAILY DM 08/05/17 [History Last Taken 01/24/21] ammonium lactate 12 % lotion 1 applicatio TP DAILY PRN PRN IRRITATION 12/23/18 [History Last Taken 01/24/21] latanoprost 0.005 % eye drops 1 drp EACH EYE DAILY GLUCOMA 12/23/18 [History Last Taken 01/23/21] tamsulosin 0.4 mg capsule 0.4 mg PO DAILY PROSTATE 06/21/19 [History Last Taken 01/24/21] amlodipine 10 mg tablet 10 mg PO DAILY BP 01/24/21 [History Last Taken 01/24/21] carvedilol 25 mg tablet 37.5 mg PO DAILY HEART 02/27/21 [History Last Taken Unknown] ascorbic acid (vitamin C) 500 mg tablet (Vitamin C) 500 mg PO DAILY 03/28/21 [History Last Taken Unknown] ferrous sulfate 325 mg (65 mg iron) tablet 325 mg PO DAILY 03/28/21 [History Last Taken Unknown] multivitamin 1 tab PO DAILY 03/28/21 [History Last Taken Unknown] vitamin B complex 1 cap PO DAILY 03/28/21 [History Last Taken Unknown] acetaminophen 325 mg tablet (Tylenol) 650 mg PO Q6H PRN PRN Pain Score 1-10 #10 tabs 04/01/21 [Rx Last Taken Unknown] ergocalciferol (vitamin D2) 1,250 mcg (50,000 unit) capsule 50,000 unit PO QMONTH 09/25/21 [History Last Taken Unknown] sevelamer carbonate 800 mg tablet 1,600 mg PO TID 09/25/21 [History Last Taken Unknown] Allergy/AdvReac Type Severity Reaction Status Date / Time No Known Allergies Allergy Verified 09/25/21 10:24 Family History (Reviewed 02/04/22 @ 11:01 by Radha Bolton DISABILITIES SERVICES OFFICER, DISABILITIES SERVICES OFFICER-C) Father Hypertension Heart disease Diabetes Mother Diabetes Chronic kidney disease Hypertension Anemia Surgical History (Reviewed 02/04/22 @ 11:01 by Radha Bolton DISABILITIES SERVICES OFFICER, DISABILITIES SERVICES OFFICER-C) H/O skin graft History of tonsillectomy and adenoidectomy Hx of appendectomy Hx of tonsillectomy Presence of biventricular implantable cardioverter-defibrillator (ICD) (05/14/11) Social History (Reviewed 02/04/22 @ 11:01 by Radha Bolton DISABILITIES SERVICES OFFICER, DISABILITIES SERVICES OFFICER-C) household members: none Smoking Status: Never smoker alcohol intake: never substance use type: does not use caffeine: Yes ROS Constitutional Constitutional: Reports fatigue; Denies chills, fever(s), frequent falls or headache(s) Eyes Eyes: Reports requires corrective lenses ENT HEENT: Reports none Cardiovascular Cardiovascular: Reports edema; Denies chest pain Respiratory/Chest Respiratory/Chest: Denies cough Gastrointestinal Gastrointestinal: Denies nausea or vomiting Genitourinary Genitourinary: Reports other Details: has a lucero catheter Musculoskeletal Musculoskeletal: Reports joint pain and joint stiffness Integumentary Integumentary: Reports wounds Neurologic Neurologic: Reports abnormal gait Psychiatric Psychiatric: Reports none Endocrine Endocrinology: Reports fatigue Hematologic/Lymphatic Hematologic/Lymphatic: Reports anemia Vital Signs Vital Signs Vital Signs: 02/03/22 08:34 Temperature 96.9 F L Temperature Source Temporal Pulse Rate 83 Blood Pressure 141/69 H Blood Pressure Mean 93 Blood Pressure Source Monitor Weight Weight: 280 lb Body Mass Index (BMI) 39.0 Physical Exam Const alert, oriented x3 and no apparent distress General Appearance: cooperative and well developed HEENT normocephalic Resp normal respiratory effort, normal air movement and clear to auscultation bilaterally Cardio regular rate and regular rhythm GI normal to inspection, nondistended, normoactive bowel sounds and soft to palpation Bladder / Kidney Exam: catheter in place Extremity full ROM and normal capillary refill Peripheral Pulses: Yes dorsalis pedis pulses present bilateral 2+ Skin Wound Narrative: Left medial leg ulcer is superficial, there are areas with thick, dry scabbing. Neuro oriented x3 Sensorium / Orientation: awake and alert Psych thought process normal and cooperative Appearance: appropriate Debridement Note Debridement Note Wound debrided: medial leg ulcer Laterality: Left Type of Debridement: Selective debridement Anesthesia Used: 4% Lidocaine Solution Depth: Down to and including healthy tissue and in the subcutaneous layer Percentage of wound debrided: 80 Instrument Used: 5mm curette Tissue Removed: Non viable tissue and slough Severity: Fat Layer Exposed Amount of bleeding with debridement: Mild Bleeding Controlled with: Pressure Patient tolerated procedure: Patient tolerated procedure well Post-Debridement Measurements and Additional Note: Post-Debridement Measurements/Treatment AR - Nurse 1 - General Ulcer Assessment Start: 02/03/22 08:34 Freq: Status: Active Protocol: CORDELIA Activity Type Activity Date Activity User E-sign Co-sign Detail Recorded Client Recorded Date Recorded By Document 02/03/22 08:34 OH [id number] 02/03/22 08:40 OH 02/03/22 08:34 WC - Today's Visit Information Type of service Nurse-only Visit Arrival Mode Ambulatory, Walker Patient Identification Verified (Name & Yes ) Patient Requires Transmission-Based No Precautions Safety Precautions NA Height and Weight Height 5 ft 11 in Weight 280 lb Weight in Pounds 280.0 lbs Body Mass Index (BMI) 39.0 BMI Classification Obese BSA - Haven 2.43 Vital Signs Temperature (97.8 F-99.1 F) 96.9 F L Temperature Source Temporal Pulse Rate (60-100) 83 Pulse Location Monitor Blood Pressure (90/60-120/80) 141/69 H Blood Pressure Mean 93 Source Monitor History Since Last Visit- (Skip if this is Patient's initial visit) Left Footwear Regular Shoe Right Footwear Regular Shoe Pain Scale: 0-10 Numeric Is Patient Pain Free? Yes - Nurse 1 - General Ulcer Measurement Start: 02/03/22 08:34 Freq: Status: Active Protocol: Activity Type Activity Date Activity User E-sign Co-sign Detail Recorded Client Recorded Date Recorded By Document 02/03/22 08:34 OH [id number] 02/03/22 08:40 OH 02/03/22 08:34 Wound Center Nurse 1 #3 L medial lower extremity -Combined with other wound No -Current Size (cm) - Length 6 -Current Size (cm) - Width 4.2 -Current Size (cm) - Depth 0.1 -Total Square Cm 25.2 -Date of Last Picture (Recall this 02/03/22 field) -Photo Taken Yes -Epithelialization None Present -Tunneling No -Undermining/Tunneling No -Circular Undermining No -Change in Wound Grade/Stage No -Exudate Amt Medium -Exudate Type Serosanguineous -Wound Margin Distinct, Outline Attached -Granulation Amt None Present (0 %) -Granulation Quality N/A -Slough/Fibrin Yes -Necrosis Amt Large (67-100%) -Necrotic Tissue Type Adherent Slough -Structure Exposed N/A -Texture (Ese-wound Skin Appearance) No Abnormality, Assessed -Moisture (Ese-wound Skin Appearance) Assessed,Dry/ Scaly -Color (Ese-wound Skin Appearance) No Abnormality, Assessed -Temperature (Ese-wound Skin No Abnormality Appearance) (Pt Warm) -Tenderness on Palpation (Ese-wound No Skin Appearance) -Ulcer Cleansing Rinsed/ Irrigated with Saline -Foul Odor after Cleansing No -Anesthetic Used 4% Lidocaine Solution Right Calf (cm) 44.5 Right Ankle (cm) 24.5 Left Calf (cm) 41.3 Left Ankle (cm) 21.1 WC - Nurse 2 - General Ulcer CM Notes Start: 02/03/22 08:34 Freq: Status: Active Protocol: Activity Type Activity Date Activity User E-sign Co-sign Detail Recorded Client Recorded Date Recorded By Document 02/03/22 09:01 GUILLE [id number] 02/03/22 09:04 JF 02/03/22 09:01 Wound Center Nurse 2 #3 L medial lower extremity -Time 09:01 -Correct Patient Yes -Correct Side, Site, Position Yes -Correct Procedure Yes -Procedure Performed Yes -Type of Procedure Debridement -Clinical Debridement Epidermis / Dermis -Tissue Removed Epidermis, Dermis -Post Debridement (cm) - Length 11.5 -Post Debridement (cm) - Width 8.7 -Post Debridement (cm) - Depth 0.1 -Total Square (Post) (cm) 100.05 -Area of Debridement (cm) - Length 11.5 -Area of Debridement (cm) - Width 8.7 -Total Square (Area) (cm) 100.05 -Tunneling No -Undermining/Tunneling No -Circular Undermining No -Wound/Ulcer Outcome Not Healed -Ulcer Cleansing Rinsed/ Irrigated with Saline -Foul Odor after Cleansing No -Bioengineered Tissue No -Bleeding Controlled with Pressure -Treatment Response Procedure Tolerated Well -Offloading No -Debridement - Open, 1st 20sq cm Yes Pain Scale: 0-10 Numeric Is Patient Pain Free? Yes WC - Nurse 3 - General Ulcer D/C NN Start: 02/03/22 08:34 Freq: Status: Active Protocol: Activity Type Activity Date Activity User E-sign Co-sign Detail Recorded Client Recorded Date Recorded By Document 02/03/22 09:15 DL [id number] 02/03/22 09:16 DL 02/03/22 09:15 Wound Care Nurse 3 #3 L medial lower extremity -Ulcer Cleansing Rinsed/ Irrigated with Saline -Foul Odor after Cleansing No -Primary Dressing Applied C Hydrogel ($), NonAdherent Contact Layer -Primary Dressing Covered/Secured with Dry Gauze & Roll Gauze, Secured with Tape Left -Tubular Bandage Single Layer -Size of Tubigrip Used Size E -Size E ($) 1 Treatment Response Procedure Tolerated Well Pain Scale: 0-10 Numeric Is Patient Pain Free? Yes WC - Visit Discharge Discharge Condition Stable Ambulatory Status Ambulatory Transportation taxi Facility Type Home Health Orders Sent Yes Charges/Coding Addendum Addendum: 87599 and 89682 x 5 selective debridement Visit Charges Office Visits / Consults: 33133 OV L3 Est (25 modifier) Assessment/Plan Assessment/Plan (1) Non-pressure chronic ulcer of unspecified part of left lower leg with fat layer exposed: CODE(S): L97.922 - Non-pressure chronic ulcer of unspecified part of left lower leg with fat layer exposed (2) Bilateral lower extremity edema: CODE(S): R60.0 - Localized edema (3) Diabetes mellitus, type II: CODE(S): E11.9 - Type 2 diabetes mellitus without complications QUALIFIERS: Diabetes mellitus retirement insulin use: unspecified retirement insulin use status Diabetes mellitus complication status: with skin complications Diabetes mellitus complication detail: with other skin ulcer Qualified Code(s): E11.622 - Type 2 diabetes mellitus with other skin ulcer; L98.499 - Non-pressure chronic ulcer of skin of other sites with unspecified severity (4) Presence of biventricular implantable cardioverter-defibrillator (ICD): CODE(S): Z95.810 - Presence of automatic (implantable) cardiac defibrillator (5) End-stage renal disease on hemodialysis: CODE(S): N18.6 - End stage renal disease; Z99.2 - Dependence on renal dialysis (6) Non-ischemic cardiomyopathy: CODE(S): I42.8 - Other cardiomyopathies PLAN: Plan Wound care - Collagen hydrogel with adaptic and topped with gauze daily after washing with soap and water. Single layer tubigrip for compression. Arterial and Vascular studies ordered. He has dialysis T-TH-Sat. He should keep legs elevated. Encouraged to sleep in a bed not a chair to help with the edema. Encouraged a high protein low carbohydrate diet to help with wound healing and blood sugars. Follow up one week. Call or come in sooner if develop any questions or concerns.
[2022-02-10 08:34] VITALS: BP 120/77; PULSE 89; TEMP 36.7; BMI 39.0
--- NOTE | 2022-02-10 11:02 | PCM.WC.PN ---
History of Present Illness Date of Service: 02/10/22 Chief Complaint: nonhealing ulcer of left medial lower leg History of Wound: Ernesto is a 61 yo male with PMH of DM type 2, gout, cardiomyopathy with AICD, mitral valve disease, CKD on dialysis T-TH-Sat and history of falls. He had a right forearm fistula placed 04/06. He is a poor historian. He lives at home. He has a hospital bed to sleep in but admits to sleeping often in a chair. He ambulates with a wheeled walker. He is not sure how long he has had the ulcer on his left medial leg. He states that it has been awhile. It has been several months, but not more than 6 months. He had 3 ulcers but it is down to one. He gets the ulcer dressed with gauze while at hemodialysis. He does not change the dressing while at home. He lives at home alone and has a health aide come in a few times per week. He states that it has some drainage, but not much. He denies fever, chills, nausea and vomiting. He denies wearing any compression. Progress of Wound: Left medial leg ulcer is healed today. There is no drainage present. Objective Data Objective Data Vital Signs: Vital Signs Temp Pulse BP 98.0 F 89 120/77 02/10/22 08:34 02/10/22 08:34 02/10/22 08:34 Weight: 280 lb Body Mass Index (BMI) 39.0 Charges/Coding Visit Charges Office Visits / Consults: 00566 OV L3 Est Physical Exam Const alert and no apparent distress General Appearance: cooperative Resp normal respiratory effort Cardio regular rate Extremity Extremity Narrative: +2 edema Skin Wound Narrative: Left medial leg ulcer is healed. There is some dry, flaky skin present. No drainage present. Psych affect normal Debridement Note Debridement Note Laterality: Left No debridement was completed: No debridement was completed today Post-Debridement Measurements and Additional Note: Post-Debridement Measurements/Treatment WC - Nurse 1 - General Ulcer Assessment Start: 02/03/22 08:34 Freq: Status: Active Protocol: AR.HERIBERTOEXT Activity Type Activity Date Activity User E-sign Co-sign Detail Recorded Client Recorded Date Recorded By Document 02/03/22 08:34 VA [id number] 02/03/22 08:40 AK Document 02/10/22 08:34 LAMONT [id number] 02/10/22 08:36 KR 02/03/22 02/10/22 08:34 08:34 WC - Today's Visit Information Type of service Nurse-only Follow-up Visit Visit (Physician/INSULATION SUPERVISOR ) Arrival Mode Ambulatory, Ambulatory Walker Patient Identification Verified (Name & Yes Yes ) Patient Requires Transmission-Based No Precautions Safety Precautions NA Height and Weight Height 5 ft 11 in Weight 280 lb Weight in Pounds 280.0 lbs Body Mass Index (BMI) 39.0 39.0 BMI Classification Obese Obese BSA - Haven 2.43 Vital Signs Temperature (97.8 F-99.1 F) 96.9 F L 98.0 F Temperature Source Temporal Temporal Pulse Rate (60-100) 83 89 Pulse Location Monitor Monitor Blood Pressure (90/60-120/80) 141/69 H 120/77 Blood Pressure Mean (mm Hg) 93 91 Source Monitor Monitor Position Semi-Fowlers Blood Pressure Location Right Arm History Since Last Visit- (Skip if this is Patient's initial visit) Have you changed medications since your No last visit? Any new allergies or adverse reactions No Had a fall/change in ADL's that may No increase risk of falls Signs or symptoms of abuse and/or No neglect since last visit Have you been in the hospital since your No last visit? Has dressing in place as prescribed Yes Has compression in place as prescribed Yes Has offloadiing in place as prescribed N/A Experienced any changes in pain level or No management Left Footwear Regular Shoe Regular Shoe Right Footwear Regular Shoe Regular Shoe Pain Scale: 0-10 Numeric Is Patient Pain Free? Yes Yes - Nurse 1 - General Ulcer Measurement Start: 02/03/22 08:34 Freq: Status: Active Protocol: Activity Type Activity Date Activity User E-sign Co-sign Detail Recorded Client Recorded Date Recorded By Document 02/03/22 08:34 KONRAD [id number] 02/03/22 08:40 KONRAD Document 02/10/22 08:34 LAMONT [id number] 02/10/22 08:36 LAMONT 02/03/22 02/10/22 08:34 08:34 Wound Center Nurse 1 #3 L medial lower extremity -Combined with other wound No -Current Size (cm) - Length 6 0.1 -Current Size (cm) - Width 4.2 0.1 -Current Size (cm) - Depth 0.1 0.1 -Total Square Cm 25.2 0.01 -Date of Last Picture (Recall this 02/03/22 field) -Photo Taken Yes -Epithelialization None Present -Tunneling No -Undermining/Tunneling No -Circular Undermining No -Change in Wound Grade/Stage No -Exudate Amt Medium None Present -Exudate Type Serosanguineous -Wound Margin Distinct, Distinct, Outline Outline Attached Attached -Granulation Amt None Present (0 None Present (0 %) %) -Granulation Quality N/A -Slough/Fibrin Yes -Necrosis Amt Large (67-100%) None Present (0 %) -Necrotic Tissue Type Adherent Slough -Structure Exposed N/A -Texture (Ese-wound Skin Appearance) No Abnormality, Assessed, Assessed Scarring -Moisture (Ese-wound Skin Appearance) Assessed,Dry/ No Abnormality, Scaly Assessed -Color (Ese-wound Skin Appearance) No Abnormality, No Abnormality, Assessed Assessed -Temperature (Ese-wound Skin No Abnormality No Abnormality Appearance) (Pt Warm) (Pt Warm) -Tenderness on Palpation (Ese-wound No No Skin Appearance) -Ulcer Cleansing Rinsed/ Rinsed/ Irrigated with Irrigated with Saline Saline -Foul Odor after Cleansing No No -Anesthetic Used 4% Lidocaine 4% Lidocaine Solution Solution Right Calf (cm) 44.5 Right Ankle (cm) 24.5 Left Calf (cm) 41.3 40.5 Left Ankle (cm) 21.1 24 WC - Nurse 2 - General Ulcer CM Notes Start: 02/03/22 08:34 Freq: Status: Active Protocol: Activity Type Activity Date Activity User E-sign Co-sign Detail Recorded Client Recorded Date Recorded By Document 02/03/22 09:01 GUILLE [id number] 02/03/22 09:04 GUILLE Edit Result 02/03/22 09:01 JF (1) [id number] 02/04/22 07:17 PL (1) #3 L medial lower extremity - Debridement, Open, ea addt'l 20sq cm => 5 or part thereof 02/03/22 09:01 Wound Center Nurse 2 #3 L medial lower extremity -Time 09:01 -Correct Patient Yes -Correct Side, Site, Position Yes -Correct Procedure Yes -Procedure Performed Yes -Type of Procedure Debridement -Clinical Debridement Epidermis / Dermis -Tissue Removed Epidermis, Dermis -Post Debridement (cm) - Length 11.5 -Post Debridement (cm) - Width 8.7 -Post Debridement (cm) - Depth 0.1 -Total Square (Post) (cm) 100.05 -Area of Debridement (cm) - Length 11.5 -Area of Debridement (cm) - Width 8.7 -Total Square (Area) (cm) 100.05 -Tunneling No -Undermining/Tunneling No -Circular Undermining No -Wound/Ulcer Outcome Not Healed -Ulcer Cleansing Rinsed/ Irrigated with Saline -Foul Odor after Cleansing No -Bioengineered Tissue No -Bleeding Controlled with Pressure -Treatment Response Procedure Tolerated Well -Offloading No -Debridement - Open, 1st 20sq cm Yes -Debridement, Open, ea addt'l 20sq cm 5 or part thereof Pain Scale: 0-10 Numeric Is Patient Pain Free? Yes WC - Nurse 3 - General Ulcer D/C NN Start: 02/03/22 08:34 Freq: Status: Active Protocol: Activity Type Activity Date Activity User E-sign Co-sign Detail Recorded Client Recorded Date Recorded By Document 02/03/22 09:15 DL [id number] 02/03/22 09:16 DL Document 02/10/22 08:53 KR [id number] 02/10/22 08:54 KR 02/03/22 02/10/22 09:15 08:53 Wound Care Nurse 3 #3 L medial lower extremity -Ulcer Cleansing Rinsed/ Irrigated with Saline -Foul Odor after Cleansing No -Primary Dressing Applied C Hydrogel ($), NonAdherent Contact Layer -Primary Dressing Covered/Secured with Dry Gauze & Roll Gauze, Secured with Tape Right -Size of Tubigrip Used Size D Left -Tubular Bandage Single Layer Single Layer -Size of Tubigrip Used Size E Size D -Size D ($) 1 -Size E ($) 1 Treatment Response Procedure Tolerated Well Pain Scale: 0-10 Numeric Is Patient Pain Free? Yes Yes WC - Visit Discharge Discharge Condition Stable Stable Ambulatory Status Ambulatory Walker Transportation taxi Private Auto Facility Type Home Health Orders Sent Yes Assessment/Plan Assessment/Plan (1) Non-pressure chronic ulcer of unspecified part of left lower leg with fat layer exposed: CODE(S): L97.922 - Non-pressure chronic ulcer of unspecified part of left lower leg with fat layer exposed (2) Bilateral lower extremity edema: CODE(S): R60.0 - Localized edema (3) Diabetes mellitus, type II: CODE(S): E11.9 - Type 2 diabetes mellitus without complications QUALIFIERS: Diabetes mellitus intermediate designer insulin use: unspecified intermediate designer insulin use status Diabetes mellitus complication status: with skin complications Diabetes mellitus complication detail: with other skin ulcer Qualified Code(s): E11.622 - Type 2 diabetes mellitus with other skin ulcer; L98.499 - Non-pressure chronic ulcer of skin of other sites with unspecified severity (4) Presence of biventricular implantable cardioverter-defibrillator (ICD): CODE(S): Z95.810 - Presence of automatic (implantable) cardiac defibrillator (5) End-stage renal disease on hemodialysis: CODE(S): N18.6 - End stage renal disease; Z99.2 - Dependence on renal dialysis (6) Non-ischemic cardiomyopathy: CODE(S): I42.8 - Other cardiomyopathies PLAN: Plan Continue to wash legs with soap and water daily and dry well. Use lotion to moisturize legs and dry skin 1-2 times daily. Single layer tubigrip for compression. Arterial and Vascular studies scheduled for 03/10/22. Although his ulcer is healed, I would still like him to obtain the vascular studies. He has dialysis T-TH-Sat. He should keep legs elevated. Encouraged to sleep in a bed not a chair to help with the edema. Encouraged a high protein low carbohydrate diet to help with wound healing and blood sugars. Follow up as needed. I will notify him of his vascular study results .
== END 2022-02-11 15:38 | disposition home or self-care (01) ==
LOC: WC 08:30
PROVIDERS: PCP Internal Medicine; Visit Provider Nurse Practitioner Family
DX: L97.822 Non-pressure chronic ulcer of other part of left lower leg with fat layer exposed (principal); I13.2 Hypertensive heart and chronic kidney disease with heart failure and with stage 5 chronic kidney disease, or end stage renal disease; Z99.2 Dependence on renal dialysis; I50.32 Chronic diastolic (congestive) heart failure; I42.8 Other cardiomyopathies; E11.22 Type 2 diabetes mellitus with diabetic chronic kidney disease; N18.6 End stage renal disease; E66.01 Morbid (severe) obesity due to excess calories; N40.0 Benign prostatic hyperplasia without lower urinary tract symptoms; E78.5 Hyperlipidemia, unspecified; M10.9 Gout, unspecified; D50.9 Iron deficiency anemia, unspecified; R60.0 Localized edema; R29.6 Repeated falls; G47.33 Obstructive sleep apnea (adult) (pediatric); Z68.39 Body mass index [BMI] 39.0-39.9, adult; Z79.84 Long term (current) use of oral hypoglycemic drugs; Z79.899 Other long term (current) drug therapy; Z95.810 Presence of automatic (implantable) cardiac defibrillator
CPT/HCPCS: 97597; 97598; 99213; G0463

== ENCOUNTER → 2022-03-10 | Outpatient (CLI) | payer MEDICARE, MEDICAID, SELFPAY ==
--- NOTE | 2022-03-10 08:49 | VDLE_ITS ---
Reason For Study: Edema RIGHT LEFT CFV is compressible, spontaneous, phasic, CFV is compressible, spontaneous, phasic, competent and demonstrates normal competent, and demonstrates normal augmentation. augmentation. FV is compressible, spontaneous, phasic, FV is compressible, spontaneous, phasic, competent and demonstrates normal competent and demonstrates normal augmentation. augmentation. POP V is compressible, spontaneous, phasic, POP V is compressible, spontaneous, phasic, competent and demonstrates normal competent and demonstrates normal augmentation. augmentation. T/P Trunk is compressible. T/P Trunk is compressible. PTV is compressible. PTV is compressible. RT PerV is compressible. LT PerV is compressible. SFJ is competent and measures 0.69cm x 0.73 SFJ is competent and measures 0.78cm x 0.66 cm. cm. GSV proximal thigh measures 0.54cm x 0.62 cm. GSV proximal thigh measures 0.36cm x 0.36 cm. GSV at knee measures 0.65cm x 0.72 cm. GSV at knee measures 0.43cm x 0.41 cm. GSV INCOMPETENT throughout for greater than GSV INCOMPETENT throughout for greater than 0.5 seconds. 0.5 seconds. SSV proximal calf is INCOMPETENT for greater SSV proximal calf is competent and measures than 0.5 seconds and measures 0.27cm x 0.28 0.22cm x 0.21 cm. cm. Rt ASV prox calf x 2 is Incompetent with reflux greater than 0.5 sec. Procedure This is a venous duplex using B-mode, color flow and spectral Doppler. Exam performed in department. A preliminary report was called and/or faxed to [facility]. VL/Venous Duplex US - [place] Extrem Interpretation Summary Deep veins of the lower extremities are bilaterally patent and compressible seg mentally. There is no evidence of deep vein thrombosis on either side. Valvular competence appears in tact within the proximal deep venous systems bilaterally. The great saphenous veins appear bila terally patent and compressible segmentally. Sapheno-femoral junctions are bilaterally competent . Segmental valvular incompetence is noted within the great saphenous veins bilaterally. The right s mall saphenous vein is patent and incompetent. The left small saphenous vein is patent and competen t. Two incompetent accessory saphenous veins are noted in the right proximal calf. Ordering Physician: Radha Bolton Referring Physician: Juany Wylie Performed By: Massiel Snyder, VEDA, RVT
--- NOTE | 2022-03-10 08:50 | ART_ITS ---
Reason For Study: PAD/Edema Procedure A bilateral lower extremity continuous wave Doppler with analog waveform analysis,segmental pressures,and ankle brachial indexes without exercise. Left Segmental Pressures Left brachial= 132mmHg. Left posterior tibial artery = 165mmHg. Left dorsalis pedis artery = 160mmHg. Left digit = 130 mmHg. Right Segmental Pressures Right posterior tibial artery = 156mmHg. Right dorsalis pedis artery = 149mmHg. Right digit = 107 mmHg. Indices The right ankle brachial index by the posterior tibial artery is 1.18. The right ankle brachial index by the dorsalis pedis is 1.13. The right digital-brachial index is 0.81. The left ankle brachial index by the posterior tibial artery is 1.25. The left ankle brachial index by the dorsalis pedis is 1.21. The left digital-brachial index is 0.98. VL/Lower Ext Art Exam w/o Exercis Interpretation Summary Triphasic Doppler waveforms are noted at ankle level bilaterally. Pulse-volume recordings appear satisfactory at all levels bilaterally. Resting ankle-brachial indices are norm al bilaterally. Digital-brachial indices are normal bilaterally. There is no evidence of significant arterial occlusive disease in the lower ext remities bilaterally. Ordering Physician: Radha Bolton Referring Physician: Juany Wylie Performed By: Massiel Snyder RDCS/RVT
== END | disposition home or self-care (01) ==
LOC: CVS 08:46
PROVIDERS: PCP Internal Medicine; Visit Provider Nurse Practitioner Family
DX: I73.9 Peripheral vascular disease, unspecified (principal); R60.0 Localized edema
CPT/HCPCS: 93923; 93970

== ENCOUNTER 2022-05-16 20:15 | Emergency (ER) | payer MEDICARE, MEDICAID, SELFPAY ==
[2022-05-16 20:16] VITALS: BP 95/58; PULSE 86; RESP 16; TEMP 36.3; O2SAT 96; BMI 39.0
--- NOTE | 2022-05-16 22:36 | EX.ED.DYSGE1 ---
HPI History of Present Illness Chief Complaint: Other, Pain/Inj Narrative Narrative: Patient is a 61-year-old male with past medical history of type 2 diabetes morbid obesity nonischemic cardiomyopathy and end-stage renal disease on dialysis. Despite this he does make urine and has a chronic indwelling Barnes catheter. Patient states he felt a twinge of pain in the genital region around 8:00 today. He states that the pain resolved but the event concerned him and secondary to this he comes to the hospital for evaluation. Patient states he has been able to empty his Barnes catheter bag throughout the day as he normally does and he denies any trauma or sick symptoms. [facility] Medical History Acute on chronic renal failure Ambulates with cane Benign prostatic hyperplasia Chronic diastolic (congestive) heart failure CKD stage 5 due to type 2 diabetes mellitus Diabetes mellitus, type II End-stage renal disease on hemodialysis Essential hypertension Falls frequently Barnes catheter in place Gout History of renal dialysis Hydronephrosis concurrent with and due to calculi of kidney and ureter Hyperlipidemia Hyperosmolar non-ketotic state in patient with type 2 diabetes mellitus Iron deficiency anemia Left bundle branch block (LBBB) Morbid obesity Non-ischemic cardiomyopathy Non-smoker Nonsustained ventricular tachycardia Open wound RAQUEL (obstructive sleep apnea) Right foot drop Secondary hyperparathyroidism (of renal origin) Venous ulcer of left lower extremity without varicose veins Walker as ambulation aid Wears glasses Home Medications allopurinol 300 mg tablet 150 mg PO DAILY GOUT 01/27/16 [History Last Taken 01/24/21] linagliptin 5 mg tablet 5 mg PO DAILY DM 08/05/17 [History Last Taken 01/24/21] ammonium lactate 12 % lotion 1 applicatio TP DAILY PRN PRN IRRITATION 12/23/18 [History Last Taken 01/24/21] latanoprost 0.005 % eye drops 1 drp EACH EYE DAILY GLUCOMA 12/23/18 [History Last Taken 01/23/21] tamsulosin 0.4 mg capsule 0.4 mg PO DAILY PROSTATE 06/21/19 [History Last Taken 01/24/21] amlodipine 10 mg tablet 10 mg PO DAILY BP 01/24/21 [History Last Taken 01/24/21] carvedilol 25 mg tablet 37.5 mg PO DAILY HEART 02/27/21 [History Last Taken Unknown] ascorbic acid (vitamin C) 500 mg tablet (Vitamin C) 500 mg PO DAILY 03/28/21 [History Last Taken Unknown] ferrous sulfate 325 mg (65 mg iron) tablet 325 mg PO DAILY 03/28/21 [History Last Taken Unknown] multivitamin 1 tab PO DAILY 03/28/21 [History Last Taken Unknown] vitamin B complex 1 cap PO DAILY 03/28/21 [History Last Taken Unknown] acetaminophen 325 mg tablet (Tylenol) 650 mg PO Q6H PRN PRN Pain Score 1-10 #10 tabs 04/01/21 [Rx Last Taken Unknown] ergocalciferol (vitamin D2) 1,250 mcg (50,000 unit) capsule 50,000 unit PO QMONTH 09/25/21 [History Last Taken Unknown] sevelamer carbonate 800 mg tablet 3,200 mg PO TID 03/26/22 [History Last Taken Unknown] fluconazole 50 mg tablet (Diflucan) 50 mg PO DAILY 14 days #14 tabs 05/16/22 [Rx Last Taken Unknown] nystatin 100,000 unit/gram topical powder 1 applic topical BID 14 days #60 grams 05/16/22 [Rx Last Taken Unknown] Allergy/AdvReac Type Severity Reaction Status Date / Time No Known Allergies Allergy Verified 05/16/22 20:21 Family History Father Hypertension Heart disease Diabetes Mother Diabetes Chronic kidney disease Hypertension Anemia Surgical History H/O skin graft History of tonsillectomy and adenoidectomy Hx of appendectomy Hx of tonsillectomy Presence of biventricular implantable cardioverter-defibrillator (ICD) (05/14/11) Social History household members: none Smoking Status: Never smoker alcohol intake: never substance use type: does not use caffeine: Yes ROS ROS ED Constitutional Constitutional ED: Denies chills or fever(s) ENT ENT ED: Denies sore throat Cardiovascular Cardiovascular: Denies chest pain Respiratory/Chest Respiratory/Chest: Denies cough or dyspnea Gastrointestinal Gastrointestinal: Denies abdominal pain, diarrhea, nausea or vomiting Genitourinary Genitourinary ED: Reports other Details: Positive terminal pain ; Denies dysuria Musculoskeletal Musculoskeletal: Denies myalgias Integumentary Denies rash Neurologic Neurologic: Denies headache(s) Hematologic/Lymphatic Hematologic/Lymphatic: Denies easy bleeding or easy bruising EXAM Physical Exam Const Vital Signs: 05/16/22 20:16 Temperature 97.3 F L Temperature Source Temporal Pulse Rate 86 Respiratory Rate 16 Blood Pressure 95/58 L Blood Pressure Mean 70 Pulse Ox 96 Oxygen Delivery Method Room Air Positive well nourished, well developed and obese General Appearance ED: well developed Nutritional Appearance: obese HEENT Reports dry mucous membranes Mouth ED: Yes dry mucous membranes Mouth: dry mucous membranes Eyes PERRL and EOMs intact bilaterally Neck supple Resp normal respiratory effort and clear to auscultation bilaterally Cardio regular rate and regular rhythm GI normal to inspection, nondistended, normoactive bowel sounds, non-tender and non-distended GI Narrative: Obese soft nontender nondistended with normoactive bowel sounds no voluntary guarding or rigidity no pulsatile mass Auscultation: normoactive bowel sounds Palpation: soft Narrative: Patient has a chronic indwelling Barnes catheter. The catheter is draining urine. There is no signs of obstruction or blood within the catheter tubing. The patient has chronic breakdown of the lower aspect of his penis from the prolonged nature of his indwelling Barnes catheter. There is soft tissue swelling and erythema with white overlying exudate consistent with balanitis. Patient also has erythema in the inguinal folds with overlying white hue consistent with cutaneous candidiasis. There is no abscess noted there is no crepitance to suggest Mekhi's gangrene Extremity Extremity Narrative: Patient has bilateral lower extremity pitting edema that is +2 in nature that is equal and symmetric and chronic per patient Neuro oriented x3 and CN's II-XII intact bilaterally Sensorium / Orientation: alert Psych mental status grossly normal Skin Skin Narrative: Soft tissue changes to the penis and inguinal folds consistent with cutaneous candidiasis and chronic stasis changes to bilateral lower legs MDM MDM MDM Narrative Medical decision making narrative: Patient presented to the ER afebrile and he reported spontaneous resolution of his pain. He does not have organomegaly to suggest urinary retention/obstruction and the catheter is draining which goes against any type of obstruction process as well. He does have soft tissue changes consistent with cutaneous candidiasis of the genital region but nothing to suggest Mekhi's gangrene. Therefore this time as the patient reports spontaneous resolution of his symptoms the catheter is in place as it is draining urine and there is no signs obstruction or systemic infection I do not feel there is need for work-up. Patient will be placed on a half dose of Diflucan because of his chronic renal failure secondary to the cutaneous candidiasis and also be prescribed nystatin topical powder. I do feel that if the inflammation from the cutaneous candidiasis is resolved the patient will no longer experience intermittent bouts of genital pain Discharge Plan Triage Chief Complaint: Other, Pain/Inj ED Provider: Mitesh Quezada Dx/Rx/DC Orders Clinical Impression: Cutaneous candidiasis, Balanitis, Diabetes mellitus, type II, Morbid obesity Instructions: ED Balanitis, ED Belen Skin Infection (Adult) Prescriptions: New nystatin 100,000 unit/gram powder 1 applic topical BID 14 Days Qty: 60 2RF fluconazole [Diflucan] 50 mg tablet 50 mg PO DAILY 14 Days Qty: 14 0RF No Action tamsulosin 0.4 mg capsule 0.4 mg PO DAILY ergocalciferol (vitamin D2) 1,250 mcg (50,000 unit) capsule 50,000 unit PO QMONTH Label Comments: take 1 capsule by mouth every MONTH sevelamer carbonate 800 mg tablet 3,200 mg PO TID Label Comments: take 2 tablets by mouth three times a day with meals allopurinol 300 MG tablet 150 mg PO DAILY carvedilol 25 mg tablet 37.5 mg PO DAILY linagliptin 5 MG tablet 5 mg PO DAILY latanoprost 1 DROP bottle 1 drp EACH EYE DAILY ammonium lactate 226 GM lotion 1 applicatio TP DAILY PRN PRN (Reason: IRRITATION) Label Comments: APPLY DIRECTED TO BOTH LEGS FROM KNEES TO FEET IF NEEDED amlodipine 10 mg tablet 10 mg PO DAILY multivitamin Tablet 1 tab PO DAILY ascorbic acid (vitamin C) [Vitamin C] 500 mg Tablet 500 mg PO DAILY vitamin B complex Capsule 1 cap PO DAILY ferrous sulfate 325 mg (65 mg iron) tablet 325 mg PO DAILY acetaminophen [Tylenol] 325 mg Tablet 650 mg PO Q6H PRN PRN (Reason: Pain Score 1-10) Qty: 10 0RF Primary Care Provider: Juany Wylie Referrals: Juany Wylie MD [Primary Care Provider] - Activity Restrictions/Additional Instructions: Please use the topical powder and pill as directed to resolve the yeast infection on your skin and return to the ER should you have any further concerns Disposition Disposition: Home, Self Care
[2022-05-16] MEDS: Fluconazole 100 MG Tablet 50 MG PO (22:51)
[2022-05-16 23:17] VITALS: PULSE 74; RESP 18; O2SAT 97
== END 2022-05-16 23:17 | disposition home or self-care (01) ==
PROVIDERS: Emergency Provider Emergency Medicine; PCP Internal Medicine; Visit Provider Emergency Medicine
DX: N48.1 Balanitis (principal); I13.2 Hypertensive heart and chronic kidney disease with heart failure and with stage 5 chronic kidney disease, or end stage renal disease; Z99.2 Dependence on renal dialysis; I50.32 Chronic diastolic (congestive) heart failure; E11.22 Type 2 diabetes mellitus with diabetic chronic kidney disease; N18.6 End stage renal disease; E66.01 Morbid (severe) obesity due to excess calories; B37.2 Candidiasis of skin and nail; E78.5 Hyperlipidemia, unspecified; Z79.899 Other long term (current) drug therapy
CPT/HCPCS: 99284

== ENCOUNTER 2022-05-17 22:01 | Emergency (ER) | payer MEDICARE, MEDICAID, SELFPAY ==
[2022-05-17 22:02] VITALS: BP 104/53; PULSE 85; RESP 16; TEMP 36.7; O2SAT 96; BMI 43.0
--- NOTE | 2022-05-17 22:36 | EX.ED.DYSGE1 ---
HPI History of Present Illness Chief Complaint: Complaint Detail of Chief Complaint: Abdominal bloating Informant: patient Onset/Context/Timing Onset: Today Narrative Narrative: Patient presents the ER via EMS secondary to abdominal bloating. Patient was seen in the emergency room last night and diagnosed with balanitis. He was prescribed Diflucan and nystatin powder. 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 He feels bloated so he called EMS tonight. He denies fever or chills. Has had normal urine output in his Barnes catheter today. He states his last bowel movement was yesterday. He is passing gas today. [facility] Medical History Acute on chronic renal failure Ambulates with cane Benign prostatic hyperplasia Chronic diastolic (congestive) heart failure Chronic indwelling Barnes catheter CKD stage 5 due to type 2 diabetes mellitus Congestive heart failure (CHF) Diabetes Diabetes mellitus, type II Dialysis patient End-stage renal disease on hemodialysis Essential hypertension Falls frequently Barnes catheter in place Gout History of renal dialysis Hydronephrosis concurrent with and due to calculi of kidney and ureter Hyperlipidemia Hyperosmolar non-ketotic state in patient with type 2 diabetes mellitus ICD (implantable cardioverter-defibrillator) in place Iron deficiency anemia Kidney disease Left bundle branch block (LBBB) Morbid obesity Non-ischemic cardiomyopathy Non-smoker Nonsustained ventricular tachycardia Open wound RAQUEL (obstructive sleep apnea) Right foot drop Secondary hyperparathyroidism (of renal origin) Sleep apnea Venous ulcer of left lower extremity without varicose veins Walker as ambulation aid Wears glasses Home Medications allopurinol 300 mg tablet 150 mg PO DAILY GOUT 01/27/16 [History Last Taken 01/24/21] linagliptin 5 mg tablet 5 mg PO DAILY DM 08/05/17 [History Last Taken 01/24/21] ammonium lactate 12 % lotion 1 applicatio TP DAILY PRN PRN IRRITATION 12/23/18 [History Last Taken 01/24/21] latanoprost 0.005 % eye drops 1 drp EACH EYE DAILY GLUCOMA 12/23/18 [History Last Taken 01/23/21] tamsulosin 0.4 mg capsule 0.4 mg PO DAILY PROSTATE 06/21/19 [History Last Taken 01/24/21] amlodipine 10 mg tablet 10 mg PO DAILY BP 01/24/21 [History Last Taken 01/24/21] carvedilol 25 mg tablet 37.5 mg PO DAILY HEART 02/27/21 [History Last Taken Unknown] ascorbic acid (vitamin C) 500 mg tablet (Vitamin C) 500 mg PO DAILY 03/28/21 [History Last Taken Unknown] ferrous sulfate 325 mg (65 mg iron) tablet 325 mg PO DAILY 03/28/21 [History Last Taken Unknown] multivitamin 1 tab PO DAILY 03/28/21 [History Last Taken Unknown] vitamin B complex 1 cap PO DAILY 03/28/21 [History Last Taken Unknown] acetaminophen 325 mg tablet (Tylenol) 650 mg PO Q6H PRN PRN Pain Score 1-10 #10 tabs 04/01/21 [Rx Last Taken Unknown] ergocalciferol (vitamin D2) 1,250 mcg (50,000 unit) capsule 50,000 unit PO QMONTH 09/25/21 [History Last Taken Unknown] sevelamer carbonate 800 mg tablet 3,200 mg PO TID 03/26/22 [History Last Taken Unknown] nystatin 100,000 unit/gram topical powder 1 applic topical BID 14 days #60 grams 05/16/22 [Rx Last Taken Unknown] cephalexin 500 mg capsule 500 mg PO Q12 #14 caps 05/18/22 [Rx Last Taken Unknown] Allergy/AdvReac Type Severity Reaction Status Date / Time No Known Allergies Allergy Verified 05/16/22 20:21 Family History Father Hypertension Heart disease Diabetes Mother Diabetes Chronic kidney disease Hypertension Anemia Surgical History H/O skin graft History of tonsillectomy and adenoidectomy Hx of appendectomy Hx of tonsillectomy Presence of biventricular implantable cardioverter-defibrillator (ICD) (05/14/11) Social History household members: none Smoking Status: Never smoker alcohol intake: never substance use type: does not use caffeine: Yes ROS ROS ED Constitutional Constitutional ED: Denies chills or fever(s) Eyes Eyes: Denies change in vision or discharge from eye(s) ENT ENT ED: Denies discharge from eye(s), rhinorrhea or sore throat Cardiovascular Cardiovascular: Denies chest pain or palpitations Respiratory/Chest Respiratory/Chest: Denies cough or dyspnea Gastrointestinal Gastrointestinal: Reports other Details: Abdominal bloating but no abdominal pain. ; Denies abdominal pain, diarrhea, nausea or vomiting Musculoskeletal Musculoskeletal: Denies back pain or extremity pain Integumentary Reports rash; Denies Abrasions Neurologic Neurologic: Denies headache(s) or weakness Psychiatric Psychiatric: Denies anxiety or depression Allergic/Immunologic Allergic/Immunologic ED: Denies lip swelling or urticaria EXAM Physical Exam Const Vital Signs: 05/17/22 22:02 05/18/22 00:35 Temperature 98.1 F 98.4 F Temperature Source Temporal Temporal Pulse Rate 85 88 Respiratory Rate 16 16 Blood Pressure 104/53 L 100/63 Blood Pressure Mean 70 75 Pulse Ox 96 96 Oxygen Delivery Method Room Air Room Air Positive obese Nutritional Appearance: obese HEENT Reports normocephalic and head/scalp atraumatic Eyes PERRL and EOMs intact bilaterally Neck supple Chest Wall inspection of chest normal and palpation of chest normal Resp normal respiratory effort and clear to auscultation bilaterally Cardio regular rate and regular rhythm GI normal to inspection, nondistended, normoactive bowel sounds Palpation: soft Narrative: Mild balanitis noted on exam. No open wounds or lesions. Extremity normal to inspection Neuro oriented x3 and no sensory deficits noted Sensorium / Orientation: alert Motor Exam: strength 5/5 throughout Psych mental status grossly normal MDM MDM MDM Narrative Medical decision making narrative: Lab work obtained along with abdominal x-ray. Barnes catheter is exchanged had urinalysis sent from the new catheter. Lab Data Attestation: I reviewed the patient's lab results. Labs: Laboratory Results - last 24 hr 05/17/22 05/17/22 05/17/22 22:53 22:53 23:47 WBC 9.0 RBC 3.39 L Hgb 10.0 L Hct 29.6 L MCV 87.3 MCH 29.5 MCHC 33.8 RDW Std Deviation 50.3 H RDW Coeff of Jeffrey 15.7 H Plt Count 167 MPV 10.2 Immature Gran % (Auto) 1.200 H Neut % (Auto) 81.2 H Lymph % (Auto) 4.8 L Lipscomb % (Auto) 11.9 H Eos % (Auto) 0.7 Baso % (Auto) 0.2 Absolute Neuts (auto) 7.3 Absolute Lymphs (auto) 0.43 L Nucleated RBC % 0 Anisocytosis 1+ Sodium 135 L Potassium 4.7 Chloride 91 L Carbon Dioxide 20.0 L Anion Gap 24 H BUN 172 H* Creatinine 22.40 H* Estim Creat Clear Calc 3.60 Est GFR (MDRD) Af Amer 3 L Est GFR (MDRD) Non-Af 2 L BUN/Creatinine Ratio 7.7 L Glucose 174 H Calcium 9.2 Urine Color Yellow Urine Clarity Turbid Urine pH 6.0 Ur Specific [place] 1.020 Urine Protein 500 H Urine Glucose (UA) Normal Urine Ketones Negative Urine Occult Blood 250 H Urine Nitrite Negative Urine Bilirubin Negative Urine Urobilinogen Normal Ur Leukocyte Esterase 500 H Urine RBC 10-25 SEEN Urine WBC >100 SEEN Ur Squamous Epith Cells 0 SEEN Urine Bacteria 4+ Urine Mucus 0 SEEN Radiography Diagnostic Testing: Clinical Impression(s) from Imaging Studies Abdomen X-Ray 05/17/22 22:53 IMPRESSION: 1. Air-fluid level in the midline upper abdomen, may represent small to moderate hiatal hernia or Gastric contents. 2. Nonobstructive bowel gas pattern. 3. Right pelviectasis. Electronically Signed: Percy Mendosa MD at 23:35 EDT , Treatment and Re-Evaluation Narrative: Abdominal x-ray per my interpretation reveals nonspecific bowel gas pattern. No obstruction. Radiology interpretation is reviewed. They feel he may have a hiatal hernia. CBC was normal overall white count but slight left shift is noted. Chemistry studies significant for a BUN of 172 and a creatinine of 22.4. Patient's potassium level is normal at 4.7. Glucose is 174. Urinalysis returns with greater than 100 white cells and 4+ bacteria. Nitrites are negative. After reviewing the patient's prior urine culture results he is given a dose of Zosyn here. Urine has been sent for culture. Patient states that he has not had dialysis in a week because he does not feel good. 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 Omaira Chavez. She states they have been calling him daily to advise him to come in for dialysis. With patient's potassium level being normal she does not feel he needs to be admitted to the hospital for dialysis, but should follow-up on Thursday. Patient's last urine culture was sensitive to Ancef. In light of this I will write him for Keflex so as not to interfere with his dialysis and renal function. Prescription will be sent to [facility] as he has 2 other pending prescriptions to warehouse picker. Discharge Plan Triage Chief Complaint: Complaint ED Provider: Sangeeta Salazar Dx/Rx/DC Orders Clinical Impression: UTI (urinary tract infection), Chronic renal failure Instructions: ED Bladder Infection, Male (Adult) Prescriptions: New cephalexin 500 mg capsule 500 mg PO Q12 Qty: 14 0RF No Action tamsulosin 0.4 mg capsule 0.4 mg PO DAILY ergocalciferol (vitamin D2) 1,250 mcg (50,000 unit) capsule 50,000 unit PO QMONTH Label Comments: take 1 capsule by mouth every MONTH sevelamer carbonate 800 mg tablet 3,200 mg PO TID Label Comments: take 2 tablets by mouth three times a day with meals allopurinol 300 MG tablet 150 mg PO DAILY carvedilol 25 mg tablet 37.5 mg PO DAILY linagliptin 5 MG tablet 5 mg PO DAILY latanoprost 1 DROP bottle 1 drp EACH EYE DAILY ammonium lactate 226 GM lotion 1 applicatio TP DAILY PRN PRN (Reason: IRRITATION) Label Comments: APPLY DIRECTED TO BOTH LEGS FROM KNEES TO FEET IF NEEDED amlodipine 10 mg tablet 10 mg PO DAILY multivitamin Tablet 1 tab PO DAILY ascorbic acid (vitamin C) [Vitamin C] 500 mg Tablet 500 mg PO DAILY vitamin B complex Capsule 1 cap PO DAILY ferrous sulfate 325 mg (65 mg iron) tablet 325 mg PO DAILY acetaminophen [Tylenol] 325 mg Tablet 650 mg PO Q6H PRN PRN (Reason: Pain Score 1-10) Qty: 10 0RF nystatin 100,000 unit/gram powder 1 applic topical BID 14 Days Qty: 60 2RF Primary Care Provider: Juany Wylie Referrals: Omaira Chavez DO [Med Staff - Consulting] - As soon as possible Juany Wylie MD [Primary Care Provider] - Activity Restrictions/Additional Instructions: As discussed, you must follow-up on Thursday for your dialysis treatment. You have a total of 3 prescriptions at [facility] pending pickup. Disposition Disposition: Home, Self Care
--- NOTE | 2022-05-17 22:53 | RAD_ITS ---
STUDY: X-RAY - ABDOMEN/PELVIS REASON FOR EXAM: Male, 61 years old. abd bloating TECHNIQUE: Single AP view of the abdomen / pelvis. COMPARISON: CT abdomen and pelvis 03/18/2021 FINDINGS: Partially visualized bilateral renal collecting system with right pelviectasis. Air-fluid level in the midline upper abdomen. Nonobstructive bowel gas pattern. Rounded hyperdense 5 cm structure in the left upper quadrant correlates with partially calcified left renal cystic structure on the prior CT. No acute osseous abnormality. RAD/Abd Inc Decub and/or Erect IMPRESSION: 1. Air-fluid level in the midline upper abdomen, may represent small to moderate hiatal hernia or Gastric contents. 2. Nonobstructive bowel gas pattern. 3. Right pelviectasis. Electronically Signed: Percy Mendosa MD at 23:35 EDT ,
[2022-05-17 23:19] LABS: Absolute Lymphocyte Count 0.43 X10^3/uL (0.83-4.51); Absolute Neutrophil Count 7.3 X10^3/uL (2.0-7.7); Basophil# 0.02 X10^3/uL; Basophil% 0.2 % (0-1); Eosinophil# 0.06 X10^3/uL; Eosinophils% 0.7 % (0-5); Hematocrit 29.6 % (40-54); Lymphocyte # 0.43 X10^3/ul (0.83-4.51); Lymphocyte % 4.8 % (19-41); Mean Corp Hgb Conc 33.8 g/dL (32-36); Mean Corpuscular Hgb 29.5 pg (27.0-32.0); Mean Corpuscular Volume 87.3 fL (80-94); Mean Platelet Vol. 10.2 fl (6.2-12.0); Monocyte# 1.07 X10^3/uL; Monocyte% 11.9 % (0-10); NRBC Flagged by Analyzer 0 % (0-5); Neutrophil % 81.2 % (47-70); POSITIVE DIFFERENTIAL YES; Platelet Count 167 K/mm3 (150-450); RBC Distribution Width CV 15.7 % (11.6-14.6); RBC Distribution Width SD 50.3 fl (35.1-43.9); Red Blood Count 3.39 M/mm3 (4.6-6.2)
[2022-05-17 23:28] LABS: Anion Gap 24 (5-15); BUN 172 mg/dL (7-18); BUN/Creat Ratio 7.7 RATIO (10-20); Calcium,Total 9.2 mg/dL (8.5-10.1); Chloride 91 mmol/L (98-107); EST Glomerular Filtration Rate 2 mL/min (>60); Est Glom Filt Rate - Afr Amer 3 mL/min (>60); Glucose 174 mg/dL (74-106); Potassium 4.7 mmol/L (3.5-5.1); Sodium Level 135 mmol/L (136-145)
[2022-05-17 23:54] LABS: Mucous, Urine 0 SEEN /hpf (<or=2+); Squamous Epithelial Cells - UA 0 SEEN /hpf (0-5)
[2022-05-17] MEDS: Nystatin Powder 15gm Bottle 1 APPLIC TOPICAL (23:58)
[2022-05-18 00:09] LABS: Differential Indicated SCAN CRITERIA MET
[2022-05-18 00:10] LABS: Anisocytosis 1+
[2022-05-18 00:35] VITALS: BP 100/63; PULSE 88; RESP 16; TEMP 36.9; O2SAT 96
[2022-05-18 00:56] LABS: Color, Urine Yellow (Yellow); Glucose, Dipstick Normal (Normal); Ketone-Dipstick Negative (Negative); Leukocyte Esterase-Dipstick 500 /ul (Negative); Nitrite-Dipstick Negative (Negative); Occult Blood-Urine 250 /ul (Negative); Protein-Dipstick 500 mg/dl (Negative); Urine Bilirubin Dipstick Negative (Negative); Urine Clarity Turbid (Clear); Urine Urobilinogen Normal (Normal)
[2022-05-18 00:59] LABS: Red Blood Cells-Urine 10-25 SEEN /hpf (0-5); White Blood Cells >100 SEEN /hpf (0-5)
[2022-05-18 01:00] LABS: Bacteria 4+ /hpf (None Seen)
[2022-05-18 02:00] VITALS: BP 101/67; PULSE 82; RESP 16; O2SAT 95
[2022-05-18 02:08] VITALS: BP 101/67; PULSE 82; RESP 16; O2SAT 95
== END 2022-05-18 02:38 | disposition home or self-care (01) ==
PROVIDERS: Emergency Provider Emergency Medicine; PCP Internal Medicine; Visit Provider Emergency Medicine
DX: N39.0 Urinary tract infection, site not specified (principal); I13.2 Hypertensive heart and chronic kidney disease with heart failure and with stage 5 chronic kidney disease, or end stage renal disease; I50.32 Chronic diastolic (congestive) heart failure; I42.8 Other cardiomyopathies; N18.6 End stage renal disease; E78.5 Hyperlipidemia, unspecified; G47.33 Obstructive sleep apnea (adult) (pediatric); E66.9 Obesity, unspecified; Z95.810 Presence of automatic (implantable) cardiac defibrillator; Z79.899 Other long term (current) drug therapy
CPT/HCPCS: 51702; 74019; 80048; 81001; 85025; 87077; 87086; 87088; 87186; 96365; 99285; A4216

== ENCOUNTER 2022-06-22 14:34 | Inpatient (IN) | payer MEDICARE, MEDICAID, SELFPAY ==
[2022-06-22] VITALS (18 sets, daily range): BP systolic 138–164; BP diastolic 92–103; PULSE 83–113; RESP 12–36; TEMP 36.7–36.9; O2SAT 83–98; BMI 44.9; BMI 43.9
--- NOTE | 2022-06-22 14:52 | EKG12_ITS ---
Test Reason : Blood Pressure : / mmHG Vent. Rate : 099 BPM Atrial Rate : 098 BPM P-R Int : 000 ms QRS Dur : 152 ms QT Int : 414 ms P-R-T Axes : 082 259 106 degrees QTc Int : 531 ms Ventricular-paced rhythm with Fusion complexes Biventricular pacemaker detected Abnormal ECG Confirmed by TRE ARCHER, KARL ([id number]), assistant editor VALENTINA DONOVAN ([id number]) on 06/25/2022 11:32:03 AM Referred By: SINAN Confirmed By:KARL TOLEDO MD
--- NOTE | 2022-06-22 14:53 | EDS_ITS ---
HPI History of Present Illness Chief Complaint: Shortness of Breath Detail of Chief Complaint: Deep breathing the patient will call with shortness of breath. Informant: patient Onset/Context/Timing Onset: Today Context: gradual Timing: Intermittent Quality: Negative for Dyspnea on exertion or Orthopnea Current Severity: Mild Maximum Severity: Mild Worsened by: Nothing Relieved by: Nothing Associated Symptoms Negative for cough, rhinorrhea, fever, sore throat or chills Chest Pain: Positive for None Narrative Narrative: 61-year-old male extensive past medical history of end-stage renal disease in which she is dialyzed Thursday Frank said all his dialysis were normal this week. History of CHF, diabetes, hypertension and anemia. Patient states today has had deep breathing since this morning. When I asked him if he was short of breath he said no not really. He denies chest pain. He denies fever nor chills nor cough. He denies any hemoptysis. No prior history of DVT or PE. Denies any significant recent weight change. 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 2 diabetes mellitus Congestive heart failure (CHF) Diabetes Diabetes mellitus, type II Dialysis patient End-stage renal disease on hemodialysis Essential hypertension Falls frequently Barnes catheter in place Gout History of renal dialysis Hydronephrosis concurrent with and due to calculi of kidney and ureter Hyperlipidemia Hyperosmolar non-ketotic state in patient with type 2 diabetes mellitus ICD (implantable cardioverter-defibrillator) in place Iron deficiency anemia Kidney disease Left bundle branch block (LBBB) Morbid obesity Non-ischemic cardiomyopathy Non-smoker Nonsustained ventricular tachycardia Open wound RAQUEL (obstructive sleep apnea) Right foot drop Secondary hyperparathyroidism (of renal origin) Sleep apnea Venous ulcer of left lower extremity without varicose veins Walker as ambulation aid Wears glasses Home Medications allopurinol 300 mg tablet 150 mg PO DAILY GOUT 01/27/16 [History Last Taken 01/24/21] linagliptin 5 mg tablet 5 mg PO DAILY DM 08/05/17 [History Last Taken 01/24/21] ammonium lactate 12 % lotion 1 applicatio TP DAILY PRN PRN IRRITATION 12/23/18 [History Last Taken 01/24/21] latanoprost 0.005 % eye drops 1 drp EACH EYE DAILY GLUCOMA 12/23/18 [History Last Taken 01/23/21] tamsulosin 0.4 mg capsule 0.4 mg PO DAILY PROSTATE 06/21/19 [History Last Taken 01/24/21] amlodipine 10 mg tablet 10 mg PO DAILY BP 01/24/21 [History Last Taken 01/24/21] carvedilol 25 mg tablet 37.5 mg PO DAILY HEART 02/27/21 [History Last Taken Unknown] ascorbic acid (vitamin C) 500 mg tablet (Vitamin C) 500 mg PO DAILY 03/28/21 [History Last Taken Unknown] ferrous sulfate 325 mg (65 mg iron) tablet 325 mg PO DAILY 03/28/21 [History Last Taken Unknown] multivitamin 1 tab PO DAILY 03/28/21 [History Last Taken Unknown] vitamin B complex 1 cap PO DAILY 03/28/21 [History Last Taken Unknown] acetaminophen 325 mg tablet (Tylenol) 650 mg PO Q6H PRN PRN Pain Score 1-10 #10 tabs 04/01/21 [Rx Last Taken Unknown] ergocalciferol (vitamin D2) 1,250 mcg (50,000 unit) capsule 50,000 unit PO QMONTH 09/25/21 [History Last Taken Unknown] sevelamer carbonate 800 mg tablet 3,200 mg PO TID 03/26/22 [History Last Taken Unknown] nystatin 100,000 unit/gram topical powder 1 applic topical BID 14 days #60 grams 05/16/22 [Rx Last Taken Unknown] cephalexin 500 mg capsule 500 mg PO Q12 #14 caps 05/18/22 [Rx Last Taken Unknown] Allergy/AdvReac Type Severity Reaction Status Date / Time No Known Allergies Allergy Verified 05/16/22 20:21 Family History Father Hypertension Heart disease Diabetes Mother Diabetes Chronic kidney disease Hypertension Anemia Surgical History H/O skin graft History of tonsillectomy and adenoidectomy Hx of appendectomy Hx of tonsillectomy Presence of biventricular implantable cardioverter-defibrillator (ICD) (05/14/11) Social History household members: none Smoking Status: Never smoker alcohol intake: never substance use type: does not use caffeine: Yes ROS ROS ED ROS Narrative Denies. Review of Systems ROS Unobtainable: Denies due to encephalopathy Constitutional Constitutional ED: Denies chills or fever(s) Eyes Eyes: Denies blurry vision ENT ENT ED: Denies ear pain Cardiovascular Cardiovascular: Denies chest pain or palpitations Respiratory/Chest Respiratory/Chest: Denies cough or dyspnea Gastrointestinal Gastrointestinal: Denies abdominal pain Genitourinary Genitourinary ED: Denies dysuria or hematuria Musculoskeletal Musculoskeletal: Denies arthralgias Integumentary Denies abscess Neurologic Neurologic: Denies headache(s) Psychiatric Psychiatric: Denies anxiety Endocrine Endocrinology: Denies cold intolerance Hematologic/Lymphatic Hematologic/Lymphatic: Denies easy bleeding Allergic/Immunologic Allergic/Immunologic ED: Denies mouth swelling or tongue swelling EXAM Physical Exam Narrative Exam Narrative: 61-year-old male. Vital signs stable afebrile. His pulse ox 96% on room air no hypoxia. He is in no distress. Sitting upright in bed. H EENT exam unremarkable. Neck nontender. Lungs clear to auscultation bilaterally. Heart regular rhythm no murmur. Rate about 100. Abdomen morbidly obese soft nontender normal bowel sounds no peritoneal signs. Moving all 4 extremities. Chronic edema bilaterally. Calves nontender. No cords. Neurologically is awake alert. Answering questions following commands. No focal motor deficits. Const Vital Signs: 06/22/22 14:35 06/22/22 14:38 06/22/22 14:37 Temperature 98.0 F 98.0 F Temperature Source Temporal Temporal Pulse Rate 103 H 102 H 102 H Respiratory Rate 24 H 27 H 29 H Respiratory Effort Respiratory Depth Respiratory Pattern Blood Pressure 143/92 H 143/92 H 143/92 H Blood Pressure Mean 109 109 109 Pulse Ox 96 94 94 Oxygen Delivery Method Room Air Room Air Oxygen Flow Rate (L/min) 06/22/22 14:40 06/22/22 15:05 06/22/22 16:05 Temperature 98.5 F Temperature Source Oral Pulse Rate 103 H Respiratory Rate 26 H Respiratory Effort Short of Breath Respiratory Depth Normal Respiratory Pattern Tachypnea Blood Pressure 149/103 H Blood Pressure Mean 118 Pulse Ox 96 96 Oxygen Delivery Method Room Air Room Air Room Air Oxygen Flow Rate (L/min) 06/22/22 16:38 06/22/22 17:10 06/22/22 17:16 Temperature Temperature Source Pulse Rate 100 Respiratory Rate 26 H 26 H Respiratory Effort Respiratory Depth Respiratory Pattern Blood Pressure 164/99 H 160/103 H Blood Pressure Mean 120 122 Pulse Ox 86 92 Oxygen Delivery Method Room Air Nasal Cannula Oxygen Flow Rate (L/min) 2 06/22/22 17:38 Temperature Temperature Source Pulse Rate 101 H Respiratory Rate 28 H Respiratory Effort Respiratory Depth Respiratory Pattern Blood Pressure 155/98 H Blood Pressure Mean 117 Pulse Ox 92 Oxygen Delivery Method Nasal Cannula Oxygen Flow Rate (L/min) 3 Positive well nourished, well developed and obese; Negative for cachectic, contractures or unkempt General Appearance ED: well developed and NAD; Negative for unkempt, cachectic, contractures or pallor Nutritional Appearance: obese; Negative for cachectic HEENT Reports moist mucous membranes; Denies dry mucous membranes atraumatic; Negative for trauma or tenderness Mouth ED: No dry mucous membranes Mouth: No dry mucous membranes Eyes PERRL and EOMs intact bilaterally General Eye ED: Negative for pale conjunctiva or scleral icterus Neck no lymphadenopathy, supple, no meningeal signs and no JVD General: Negative for tenderness Lymph Lymphatic: Negative for other Chest Wall Chest: Negative for other Resp normal respiratory effort and clear to auscultation bilaterally Auscultation: Negative for rales, rhonchi or wheezes Cardio regular rate, regular rhythm, S1 normal heart sound, S2 normal heart sound and no murmurs Rate: Negative for bradycardia or tachycardic GI non-tender, non-distended and no masses Auscultation: normoactive bowel sounds Palpation: soft; Negative for tender Back/Spine no CVA tenderness and normal to inspection General Back: Negative for CVA tenderness or tenderness Extremity Negative for normal to inspection General Extremety ED: Yes edema; Negative for tenderness General Extremity: edema Neuro oriented x3 Sensorium / Orientation: alert, oriented to person, oriented to place and oriented to time; Negative for orientation impaired, confused, lethargic or stuporous Speech: speech normal Motor Exam: strength 5/5 throughout Psych mental status grossly normal Appearance: Negative for unkempt Attitude: No agitated Mood & Affect: Negative for depressed, anxious or tearful Thought Process: normal thought process Skin no wounds General Skin Exam: Negative for jaundice or pallor Lesions: no lesions Rashes: no rashes Trauma: Negative for abrasion MDM MDM MDM Narrative Medical decision making narrative: 61-year-old male complaining of deep breathing. He denies being short of breath. He denies any chest pain. He has extensive past medical history of end-stage renal disease, dialysis and cardiomyopathy. He will undergo a cardiac work-up with a chest x-ray and labs. His exam is benign. Other than chronic changes. Repeat exam unchanged. Patient still makes urine. He has a chronic indwelling Barnes catheter. Begin 40 mg of Lasix. He is supposed to undergo dialysis on Thursday. Patient did have diuresis with his Lasix but he still had hypoxia. I do not think he can go home and wait 2 more days before he is dialyzed. He spoke to the hospitalist he will be admitted for further diuresis. Lab Data Attestation: I reviewed the patient's lab results. Lab results narrative: CBC shows a white 11.4. H&H 8.8 and 20.9 consistent with his end-stage renal disease and chronic anemia. Platelets 214. Electrolytes sodium 135 gap of 12. BUN 84 creatinine of 11 again consistent with his end-stage renal disease and dialysis. Glucose of 108. Troponin is 50. He has a cardiomyopathy. Labs are consistent with his prior labs. Labs: Laboratory Results - last 24 hr 06/22/22 06/22/22 06/22/22 14:40 14:40 17:22 WBC 11.4 H RBC 3.25 L Hgb 8.8 L Hct 28.9 L MCV 88.9 MCH 27.1 MCHC 30.4 L RDW Std Deviation 53.3 H RDW Coeff of Jeffrey 16.2 H Plt Count 214 MPV 10.5 Immature Gran % (Auto) 0.800 Neut % (Auto) 74.5 H Lymph % (Auto) 10.1 L [place] % (Auto) 8.7 Eos % (Auto) 5.4 H Baso % (Auto) 0.5 Absolute Neuts (auto) 8.5 H Absolute Lymphs (auto) 1.15 Nucleated RBC % 0 Sodium 135 L Potassium 4.4 Chloride 95 L Carbon Dioxide 28.0 Anion Gap 12 BUN 84 H Creatinine 11.00 H* Estim Creat Clear Calc 7.32 Est GFR (MDRD) Af Amer 6 L Est GFR (MDRD) Non-Af 5 L BUN/Creatinine Ratio 7.6 L Glucose 108 H Calcium 8.9 Troponin I High Sens 50 48 Radiography Chest X-Ray - ED: 1 View, Read by ED Physician, Mediastinum, Bony Structures, Chronic Changes, Cardiomegaly and CHF Diagnostic Testing: Clinical Impression(s) from Imaging Studies Chest X-Ray 06/22/22 15:10 IMPRESSION: Cardiomegaly with pulmonary edema. Electronically Signed: Paulie Hammer MD at 16:04 EST Reading Location ID and State: [facility] / [place] Tel , Service support , Chest x-ray, portable, single view interpreted both by myself and radiologist shows chronic changes. Left-sided pacemaker. Pulmonary edema and cardiomegaly. Rhythm Strip Rhythm Strip: Paced Rate: 99 Ectopy: None EKG Initial EKG: Attestation: I personally reviewed and interpreted this EKG as follows: Interpretation: No Acute Injury Pattern and Paced Comments: Paced rhythm. Discharge Plan Triage Chief Complaint: Shortness of Breath ED Provider: Dick Corcoran Dx/Rx/DC Orders Clinical Impression: Acute dyspnea, Diabetes mellitus, type II, Essential hypertension, End-stage renal disease on hemodialysis, Bilateral lower extremity edema, Pulmonary edema, Hypoxia Instructions: Pulmonary Edema, ED Dyspnea Prescriptions: No Action tamsulosin 0.4 mg capsule 0.4 mg PO DAILY ergocalciferol (vitamin D2) 1,250 mcg (50,000 unit) capsule 50,000 unit PO QMONTH Label Comments: take 1 capsule by mouth every MONTH sevelamer carbonate 800 mg tablet 3,200 mg PO TID Label Comments: take 2 tablets by mouth three times a day with meals allopurinol 300 MG tablet 150 mg PO DAILY carvedilol 25 mg tablet 37.5 mg PO DAILY linagliptin 5 MG tablet 5 mg PO DAILY latanoprost 1 DROP bottle 1 drp EACH EYE DAILY ammonium lactate 226 GM lotion 1 applicatio TP DAILY PRN PRN (Reason: IRRITATION) Label Comments: APPLY DIRECTED TO BOTH LEGS FROM KNEES TO FEET IF NEEDED amlodipine 10 mg tablet 10 mg PO DAILY multivitamin Tablet 1 tab PO DAILY ascorbic acid (vitamin C) [Vitamin C] 500 mg Tablet 500 mg PO DAILY vitamin B complex Capsule 1 cap PO DAILY ferrous sulfate 325 mg (65 mg iron) tablet 325 mg PO DAILY acetaminophen [Tylenol] 325 mg Tablet 650 mg PO Q6H PRN PRN (Reason: Pain Score 1-10) Qty: 10 0RF nystatin 100,000 unit/gram powder 1 applic topical BID 14 Days Qty: 60 2RF cephalexin 500 mg capsule 500 mg PO Q12 Qty: 14 0RF Primary Care Provider: Juany Wylie Referrals: Juany Wylie MD [Primary Care Provider] - 3-5 Days if not improving Activity Restrictions/Additional Instructions: You have some fluid on your lungs which will resolve with dialysis. However since she will be dialyzed until Thursday we will give you a dose of Lasix now which should help get the fluid off your lungs. Return if you are feeling worse. Make sure you get your dialysis on Thursday. Disposition Disposition: Acute Care Hospital [facility]
--- NOTE | 2022-06-22 15:10 | RAD_ITS ---
INDICATION: chest pain EXAMINATION/TECHNIQUE: X-RAY - portable upright AP chest x-ray COMPARISON: 01/24/2021. FINDINGS: LINES/DEVICES: Stable transvenous pacemaker. LUNGS: Low lung volumes. Diffuse vascular congestion with hazy airspace opacities bilaterally. No consolidation or pleural effusion. MEDIASTINUM AND CARDIOVASCULAR STRUCTURES: Stable cardiomegaly. BONES AND SOFT TISSUES: No acute changes. RAD/Chest 1 View (Portable) IMPRESSION: Cardiomegaly with pulmonary edema. Electronically Signed: Paulie Hammer MD at 16:04 EST ,
[2022-06-22 15:15] LABS: Absolute Lymphocyte Count 1.15 X10^3/uL (0.83-4.51); Absolute Neutrophil Count 8.5 X10^3/uL (2.0-7.7); Basophil# 0.06 X10^3/uL; Basophil% 0.5 % (0-1); Eosinophil# 0.62 X10^3/uL; Eosinophils% 5.4 % (0-5); Hematocrit 28.9 % (40-54); Hemoglobin 8.8 g/dL (13.0-16.5); Lymphocyte # 1.15 X10^3/ul (0.83-4.51); Lymphocyte % 10.1 % (19-41); Mean Corp Hgb Conc 30.4 g/dL (32-36); Mean Corpuscular Hgb 27.1 pg (27.0-32.0); Mean Corpuscular Volume 88.9 fL (80-94); Mean Platelet Vol. 10.5 fl (6.2-12.0); Monocyte# 0.99 X10^3/uL; Monocyte% 8.7 % (0-10); NRBC Flagged by Analyzer 0 % (0-5); Neutrophil % 74.5 % (47-70); Platelet Count 214 K/mm3 (150-450); RBC Distribution Width CV 16.2 % (11.6-14.6); RBC Distribution Width SD 53.3 fl (35.1-43.9); Red Blood Count 3.25 M/mm3 (4.6-6.2); White Blood Count 11.4 K/mm3 (4.4-11.0)
[2022-06-22 15:39] LABS: Anion Gap 12 (5-15); BUN 84 mg/dL (7-18); BUN/Creat Ratio 7.6 RATIO (10-20); Calcium,Total 8.9 mg/dL (8.5-10.1); Chloride 95 mmol/L (98-107); EST Glomerular Filtration Rate 5 mL/min (>60); Est Glom Filt Rate - Afr Amer 6 mL/min (>60); Estimated Creatinine Clearance 7.32 ml/min; Glucose 108 mg/dL (74-106); Potassium 4.4 mmol/L (3.5-5.1); Sodium Level 135 mmol/L (136-145); Troponin-I HS (w/2H Reflex) 50 pg/mL (3.0-78.0)
[2022-06-22] MEDS: Furosemide 40 MG/4 ML Vial IV (17:03)
[2022-06-22 17:11] LABS: Reflex Troponin-HS? (from REC) Y
[2022-06-22 17:58] LABS: Troponin-I HS 48 pg/mL (3.0-78.0)
--- NOTE | 2022-06-22 18:16 | PCM.HP.STD ---
HPI - General General Date of Admission: 06/22/22 Date of Service: 06/22/22 Chief Complaint: Dyspnea. HPI Narrative The patient is a 61 y/o M w/ PMHx: ESRD on HD (T, Th, Sat w/ Dr. Chavez), HTN, HLD, Chronic Diastolic CHF, Nonischemic cardiomyopathy, Hx NSVT s/p AICD placement, Diabetes mellitus type II, Chronic anemia/AOCD/Fe deficiency anemia, RAQUEL, Chronic venous stasis disease who presents to the [facility] ED on 06/22/22 with history of onset difficulty breathing, worse with exertion and also notes difficulty taking a deep breath reporting that he did have dialysis on Thursday and believes it was the full course but over the last 24 hours has progressively worsened with no specific severe orthopnea or marked weight gain or increased edema above his baseline but not breathing as easily as normal prompting ED evaluation. Work-up in the ED included T98.5, heart rate 103, BP 149/103, respiratory rate 26, 96% on room air, CBC with WBC 11.4, hemoglobin 8.8, MCV 88.9, platelet 214 with left shift, BMP with sodium 135, chloride 95, BUN/creatinine 8/11, glucose 108, troponin 50 with delta repeat troponin 48, EKG paced with no acute evidence of ischemia, chest x-ray with cardiomegaly and pulmonary edema, EKG with paced rhythm with no acute evidence of ischemia. In the ED as patient still makes urine he was administered Lasix 40 mg IV x1. [facility] Medical History Acute on chronic renal failure Ambulates with cane Benign prostatic hyperplasia Chronic diastolic (congestive) heart failure Chronic indwelling Barnes catheter CKD stage 5 due to type 2 diabetes mellitus Congestive heart failure (CHF) Diabetes Diabetes mellitus, type II Dialysis patient End-stage renal disease on hemodialysis Essential hypertension Falls frequently Barnes catheter in place Gout History of renal dialysis Hydronephrosis concurrent with and due to calculi of kidney and ureter Hyperlipidemia Hyperosmolar non-ketotic state in patient with type 2 diabetes mellitus ICD (implantable cardioverter-defibrillator) in place Iron deficiency anemia Kidney disease Left bundle branch block (LBBB) Morbid obesity Non-ischemic cardiomyopathy Non-smoker Nonsustained ventricular tachycardia Open wound RAQUEL (obstructive sleep apnea) Right foot drop Secondary hyperparathyroidism (of renal origin) Sleep apnea Venous ulcer of left lower extremity without varicose veins Walker as ambulation aid Wears glasses Home Medications allopurinol 300 mg tablet 150 mg PO DAILY GOUT 01/27/16 [History Last Taken 01/24/21] linagliptin 5 mg tablet 5 mg PO DAILY DM 08/05/17 [History Last Taken 01/24/21] ammonium lactate 12 % lotion 1 applicatio TP DAILY PRN PRN IRRITATION 12/23/18 [History Last Taken 01/24/21] latanoprost 0.005 % eye drops 1 drp EACH EYE DAILY GLUCOMA 12/23/18 [History Last Taken 01/23/21] tamsulosin 0.4 mg capsule 0.4 mg PO DAILY PROSTATE 06/21/19 [History Last Taken 01/24/21] amlodipine 10 mg tablet 10 mg PO DAILY BP 01/24/21 [History Last Taken 01/24/21] carvedilol 25 mg tablet 37.5 mg PO DAILY HEART 02/27/21 [History Last Taken Unknown] ascorbic acid (vitamin C) 500 mg tablet (Vitamin C) 500 mg PO DAILY 03/28/21 [History Last Taken Unknown] ferrous sulfate 325 mg (65 mg iron) tablet 325 mg PO DAILY 03/28/21 [History Last Taken Unknown] multivitamin 1 tab PO DAILY 03/28/21 [History Last Taken Unknown] vitamin B complex 1 cap PO DAILY 03/28/21 [History Last Taken Unknown] acetaminophen 325 mg tablet (Tylenol) 650 mg PO Q6H PRN PRN Pain Score 1-10 #10 tabs 04/01/21 [Rx Last Taken Unknown] ergocalciferol (vitamin D2) 1,250 mcg (50,000 unit) capsule 50,000 unit PO QMONTH 09/25/21 [History Last Taken Unknown] sevelamer carbonate 800 mg tablet 3,200 mg PO TID 03/26/22 [History Last Taken Unknown] nystatin 100,000 unit/gram topical powder 1 applic topical BID 14 days #60 grams 05/16/22 [Rx Last Taken Unknown] cephalexin 500 mg capsule 500 mg PO Q12 #14 caps 05/18/22 [Rx Last Taken Unknown] Allergy/AdvReac Type Severity Reaction Status Date / Time No Known Allergies Allergy Verified 05/16/22 20:21 Family History Father Hypertension Heart disease Diabetes Mother Diabetes Chronic kidney disease Hypertension Anemia Surgical History H/O skin graft History of tonsillectomy and adenoidectomy Hx of appendectomy Hx of tonsillectomy Presence of biventricular implantable cardioverter-defibrillator (ICD) (05/14/11) Social History household members: none Smoking Status: Never smoker alcohol intake: never substance use type: does not use caffeine: Yes ROS ROS Narrative Admission Review of Systems: CONSTITUTIONAL: No weight loss, fever, chills, + weakness or fatigue. HEENT: Eyes: No visual loss, blurred vision, double vision or yellow sclerae. Ears, Nose, Throat: No hearing loss, sneezing, congestion, runny nose or sore throat. SKIN: + chronic extremity wounds, s/p skin grafting, head skin lesion, intertrigo. CARDIOVASCULAR: No chest pain, chest pressure or chest discomfort, palpitations, edema, orthopnea, syncopal events. RESPIRATORY: + shortness of breath, mild cough, No marked sputum, wheezing, hemoptysis. GASTROINTESTINAL: No anorexia, nausea, vomiting, abdominal pain, diarrhea, melena, BRBPR. GENITOURINARY: No dysuria, frequency, urgency or retention. NEUROLOGICAL: No headache, dizziness, syncope, paralysis, ataxia, numbness or tingling in the extremities, focal weakness, change in bowel or bladder control, seizure. MUSCULOSKELETAL: + muscle, back pain, joint pain or stiffness. HEMATOLOGIC: + anemia, bleeding or bruising. LYMPHATICS: No enlarged nodes. No history of splenectomy. PSYCHIATRIC: No history of depression or anxiety. ENDOCRINOLOGIC: No reports of sweating, cold or heat intolerance. No polyuria or polydipsia. ALLERGIES: No history of asthma, hives, eczema or rhinitis. Vital Signs Vital Signs Vital Signs: 06/22/22 14:35 06/22/22 14:38 06/22/22 14:37 Temperature 98.0 F 98.0 F Temperature Source Temporal Temporal Pulse Rate 103 H 102 H 102 H Respiratory Rate 24 H 27 H 29 H Respiratory Effort Respiratory Depth Respiratory Pattern Blood Pressure 143/92 H 143/92 H 143/92 H Blood Pressure Mean 109 109 109 Pulse Ox 96 94 94 Oxygen Delivery Method Room Air Room Air Oxygen Flow Rate (L/min) 06/22/22 14:40 06/22/22 15:05 06/22/22 16:05 Temperature 98.5 F Temperature Source Oral Pulse Rate 103 H Respiratory Rate 26 H Respiratory Effort Short of Breath Respiratory Depth Normal Respiratory Pattern Tachypnea Blood Pressure 149/103 H Blood Pressure Mean 118 Pulse Ox 96 96 Oxygen Delivery Method Room Air Room Air Room Air Oxygen Flow Rate (L/min) 06/22/22 16:38 06/22/22 17:10 06/22/22 17:16 Temperature Temperature Source Pulse Rate 100 Respiratory Rate 26 H 26 H Respiratory Effort Respiratory Depth Respiratory Pattern Blood Pressure 164/99 H 160/103 H Blood Pressure Mean 120 122 Pulse Ox 86 92 Oxygen Delivery Method Room Air Nasal Cannula Oxygen Flow Rate (L/min) 2 06/22/22 17:38 Temperature Temperature Source Pulse Rate 101 H Respiratory Rate 28 H Respiratory Effort Respiratory Depth Respiratory Pattern Blood Pressure 155/98 H Blood Pressure Mean 117 Pulse Ox 92 Oxygen Delivery Method Nasal Cannula Oxygen Flow Rate (L/min) 3 Weight Weight: 321 lb 10.471 oz Body Mass Index (BMI) 44.9 Physical Exam Narrative Physical Examination: General: Awake, alert, oriented x 3 and cooperative, seated upright in the ED bed, fatigued appearing, laying flat in the bed with no obvious respiratory distress noted. Skin: Normal color, normal turgor, no icterus, no cyanosis except chronic extremity lesions/occasional ecchymoses, chronic scalp lesion, significant bilateral lower extremity chronic venous stasis skin change. HEENT: AT/NC, EOMI, PERRLA, MMM, chronic lesion noted on the scalp right lateral, no obvious carotid bruits or JVD noted; however thickened neck makes examination difficult. Lungs: Diminished breath sounds, distant, greater bases, moderate effort, BL rales present, no marked ronchi or wheezing. Heart: Regular rate and rhythm; no gallop, rub audible. Abdomen: Soft, obese, NTTP, difficult to assess distention given habitus, normal bowel sounds, no obvious HSM but habitus makes examination difficult. Extremities: No cyanosis, no clubbing, chronic BL LE edema/venous stasis. Neurological: Patient awake, alert, oriented as noted, cognitive function intact; pupils equally reactive to light and accommodation, cranial nerves II-XII grossly normal, moving all 4 extremities, no focal deficits, strength moderately to severely global decrease secondary to acute presentation. Psychiatric: Affect appears fatigued, no acute evidence of depressive or anxiety feelings. Results Lab / Micro Data Result Diagrams: 06/22/22 14:40 06/22/22 14:40 Labs: Laboratory Results - last 24 hr 06/22/22 14:40: WBC 11.4 H, RBC 3.25 L, Hgb 8.8 L, Hct 28.9 L, MCV 88.9, MCH 27.1, MCHC 30.4 L, RDW Std Deviation 53.3 H, RDW Coeff of Jeffrey 16.2 H, Plt Count 214, MPV 10.5, Immature Gran % (Auto) 0.800, Neut % (Auto) 74.5 H, Lymph % (Auto) 10.1 L, [place] % (Auto) 8.7, Eos % (Auto) 5.4 H, Baso % (Auto) 0.5, Absolute Neuts (auto) 8.5 H, Absolute Lymphs (auto) 1.15, Nucleated RBC % 0 06/22/22 14:40: Sodium 135 L, Potassium 4.4, Chloride 95 L, Carbon Dioxide 28.0, Anion Gap 12, BUN 84 H, Creatinine 11.00 H*, Estim Creat Clear Calc 7.32, Est GFR (MDRD) Af Amer 6 L, Est GFR (MDRD) Non-Af 5 L, BUN/Creatinine Ratio 7.6 L, Glucose 108 H, Calcium 8.9, Troponin I High Sens 50 06/22/22 17:22: Troponin I High Sens 48 Rhythm Strip Rhythm Strip: Paced Rate: 99 Ectopy: None Radiology Impression Chest X-Ray 06/22/22 15:10 IMPRESSION: Cardiomegaly with pulmonary edema. Electronically Signed: Paulie Hammer MD at 16:04 EST , Assessment & Plan Assessment/Plan (1) CHF exacerbation: PLAN: Plan The patient is a 61 y/o M w/ PMHx: ESRD on HD (T, Th, Sat w/ Dr. Chavez), HTN, HLD, Chronic Diastolic CHF, Nonischemic cardiomyopathy, Hx NSVT s/p AICD placement, Diabetes mellitus type II, Chronic anemia/AOCD/Fe deficiency anemia, RAQUEL, Chronic venous stasis disease who presents to the [facility] ED on 06/22/22 with history of onset difficulty breathing, worse with exertion and also notes difficulty taking a deep breath reporting that he did have dialysis on Thursday and believes it was the full course but over the last 24 hours has progressively worsened with no specific severe orthopnea or marked weight gain or increased edema above his baseline but not breathing as easily as normal prompting ED evaluation. #1. Acute on Chronic diastolic CHF/Nonischemic cardiomyopathy Exacerbation, Decompensation: Patient administered IV lasix in the ED, will admit to PCU, maintain on cardiac telemetry, obtain cardiac enzyme series, obtain serial EKGs, continue IV lasix diuresis pending HD ability, monitor I/Os, maintain on intake restriction, continue medical therapy, obtain TSH and magnesium level. Most recent ECHO noted 12/23/2018 with EF 55%, mildly enlarged LA thus given timeline will request repeat. #2. ESRD: Patient with ongoing T, Th, Sat HD regimen, last HD 06/21/22 and reports normal regimen performed, given acute presentation #1, will consult Dr. Chavez for potential earlier HD session, continue IV lasix in interim given makes urine. #3. Hx NSVTP: s/p AICD placement, interrogation requested. #4. Diabetes mellitus type II: Hold oral home regimen, ADA diet, accu checks w/ ISS. #5. Hypertension: Continue home regimen including amlodipine, Coreg, IV lasix pending HD given #1, PRN hydralazine. #6. Hyperlipidemia: Not on statin therapy, defer to outpatient. #7. BPH: We will continue patient on Flomax regimen. #8. Chronic anemia, AOCD, iron deficiency anemia: Admission hemoglobin 8.8, baseline primarily 9-10 range, continue iron supplementation, trend CBC. #9. Morbid Obesity: Weight loss and lifestyle changes encouraged, nutrition consulted. #10. RAQUEL: Continue CPAP nightly if amenable. #11. DVT prophylaxis: SCDs, heparin. Charges/Coding Visit Charges Inpatient E&M: 97024 Init Hosp L3
[2022-06-22 18:57] LABS: Magnesium 1.8 mg/dL (1.6-2.6); Phosphorus 6.1 mg/dL (2.5-4.9)
[2022-06-22] MEDS: Nystatin Powder 15gm Bottle 1 APPLIC TOPICAL (21:28)
[2022-06-22] MEDS: Heparin Injection (Vial) 5,000 UNIT/ML VIAL 5000 UNIT SC (21:28)
[2022-06-22 21:34] LABS: Troponin-I HS 50 pg/mL (3.0-78.0)
[2022-06-22 21:50] LABS: Bedside Glucose 107 mg/dL (74-106)
[2022-06-23] VITALS (14 sets, daily range): BP systolic 125–149; BP diastolic 76–107; PULSE 59–103; RESP 12–27; TEMP 36.3–36.9; O2SAT 92–97
--- NOTE | 2022-06-23 05:55 | ECHOD_ITS ---
Reason For Study: CHF Procedure This was a 2D Doppler, Color Flow transthoracic echocardiogram. Study was technically difficult due to uncooperative patient. Patient refused use of definity. Exam performed portable in patient room. Left Ventricle Normal LV size. The estimated ejection fraction is 35 %. Moderately severe segmental systolic dysfunction (see wall motion). Right Ventricle Normal RV size. Normal systolic function. Atria The left atrium is mildly enlarged. Normal right atrium. Mitral Valve Mitral valve not well visualized. Tricuspid Valve The tricuspid valve is not well visualized. Aortic Valve The aortic valve is not well visualized. Pulmonic Valve The pulmonic valve is not well visualized. Great Vessels Normal aortic root. The pulmonary artery is normal size. Normal inferior vena cava. Pericardium/Pleural No pericardial effusion. MMode/2D Measurements & Calculations LAV(MOD-sp4): 62.3 ml LA A4 area: 21.9 cm2 LA dimension(2D): 4.9 cm Time Measurements MV dec time: 0.13 sec Doppler Measurements & Calculations MV E max vilma: 115.9 cm/sec MV V2 max: 107.6 cm/sec MV dec slope: 896.4 cm/sec2 MV A max vilma: 75.7 cm/sec MV max P.7 mmHg MV E/A: 1.5 MV V2 mean: 67.1 cm/sec MV mean P.1 mmHg MV V2 VTI: 24.4 cm Ao V2 max: 132.1 cm/sec LV V1 max: 86.7 cm/sec MR max vilma: 492.3 cm/sec Ao max P.0 mmHg LV V1 max P.0 mmHg MR max P.9 mmHg Ao V2 mean: 85.8 cm/sec LV V1 mean P.5 mmHg Ao mean P.5 mmHg LV V1 mean: 55.4 cm/sec Ao V2 VTI: 21.0 cm LV V1 VTI: 12.4 cm PA V2 max: 72.0 cm/sec PA V2 mean: 54.4 cm/sec ECHO/Echo Complete Interpretation Summary Normal LV size. The estimated ejection fraction is 35 %. Moderately severe segmental systolic dysfunction (see wall motion). The study was technically difficult. Compared to previous study, the left ventr icular systolic function has worsened.. Ordering Physician: Carole Roberts Referring Physician: Juany Wylie M.D. Performed By: Julianna Gama RCS
[2022-06-23 07:00] LABS: Absolute Lymphocyte Count 1.43 X10^3/uL (0.83-4.51); Absolute Neutrophil Count 7.4 X10^3/uL (2.0-7.7); Basophil# 0.06 X10^3/uL; Basophil% 0.6 % (0-1); Eosinophil# 0.54 X10^3/uL; Eosinophils% 5.3 % (0-5); Hematocrit 27.4 % (40-54); Hemoglobin 8.5 g/dL (13.0-16.5); Lymphocyte # 1.43 X10^3/ul (0.83-4.51); Lymphocyte % 13.9 % (19-41); Mean Corpuscular Hgb 27.4 pg (27.0-32.0); Mean Corpuscular Volume 88.4 fL (80-94); Mean Platelet Vol. 10.6 fl (6.2-12.0); Monocyte# 0.82 X10^3/uL; NRBC Flagged by Analyzer 0 % (0-5); Neutrophil # 7.37 X10^3/uL (2.7-7.7); Neutrophil % 71.6 % (47-70); Platelet Count 205 K/mm3 (150-450); RBC Distribution Width CV 16.3 % (11.6-14.6); RBC Distribution Width SD 52.7 fl (35.1-43.9); White Blood Count 10.3 K/mm3 (4.4-11.0)
[2022-06-23 07:10] LABS: Bedside Glucose 90 mg/dL (74-106)
[2022-06-23 07:48] LABS: ALB/GLOB Ratio 0.5 RATIO (0.9-2.4); AST(SGOT) 13 U/L (15-37); Alanine Aminotransfer ALT/SGPT 9 U/L (16-61); Albumin, Serum 2.3 g/dL (3.2-5.0); Alkaline Phosphatase 61 U/L (45-117); Anion Gap 15 (5-15); BUN 90 mg/dL (7-18); BUN/Creat Ratio 7.5 RATIO (10-20); Calcium,Total 8.4 mg/dL (8.5-10.1); Chloride 97 mmol/L (98-107); Cholesterol 104 mg/dL (200); EST Glomerular Filtration Rate 5 mL/min (>60); Est Glom Filt Rate - Afr Amer 6 mL/min (>60); Estimated Creatinine Clearance 6.71 ml/min; Globulin 4.5 g/dL (2.2-4.2); Glucose 82 mg/dL (74-106); High Density Lipoprotein 27 mg/dL; Potassium 4.9 mmol/L (3.5-5.1); Protein, Total 6.8 g/dL (6.4-8.2); Sodium Level 136 mmol/L (136-145); Thyroid Stim Hormone (TSH) 1.52 uIU/mL (0.358-3.74); Triglycerides 119 mg/dL; Very Low Density Lipoprotein 24 mg/dL (5-40)
[2022-06-23] MEDS: Aspirin E.C. 81 MG Tablet PO (08:44)
[2022-06-23] MEDS: Heparin Injection (Vial) 5,000 UNIT/ML VIAL 5000 UNIT SC ×2 (08:44→21:04)
[2022-06-23] MEDS: Nystatin Powder 15gm Bottle 1 APPLIC TOPICAL ×2 (08:44→21:03)
[2022-06-23] MEDS: Furosemide 100 MG/10 ML Vial 60 MG IV ×2 (08:44→17:17)
--- NOTE | 2022-06-23 10:24 | CON.PCM.RE_ITS ---
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 Diabetes mellitus complication status: with skin complications Diabetes mellitus complication detail: with other skin ulcer Qualified Code(s): E11.622 - Type 2 diabetes mellitus with other skin ulcer; L98.499 - Non-pressure chronic ulcer of skin of other sites with unspecified severity PLAN: stable (5) Hyperlipidemia: (6) Anemia: PLAN: epo, iv iron on dialysis (7) Secondary hyperparathyroidism: PLAN: on calcitriol, sensipar on dialysis, resume phosphate binder HPI Consult Data Date of Consult: 06/23/22 HPI Narrative Reason for Consultation: ESRD HD TTS HPI Narrative: JUVENCIO QUINTERO, is a 61 M with ESRD due to diabetes, obstructive uropathy with chronic indwelling lucero catheter managed by admitted for increased dyspnea since Thursday. He is a chronic high fluid skyler 5-8kg weight gain over the weekends despite multiple counselling, noncompliance with dialysis, skips treatments for not feeling well. His last dialysis was Thursday at [facility]. He remains nonoliguric and lasix iv ordered. [facility] Medical History Acute on chronic renal failure Ambulates with cane Benign prostatic hyperplasia Chronic diastolic (congestive) heart failure Chronic indwelling Lucero catheter CKD stage 5 due to type 2 diabetes mellitus Congestive heart failure (CHF) Diabetes Diabetes mellitus, type II Dialysis patient End-stage renal disease on hemodialysis Essential hypertension Falls frequently Lucero catheter in place Gout History of renal dialysis Hydronephrosis concurrent with and due to calculi of kidney and ureter Hyperlipidemia Hyperosmolar non-ketotic state in patient with type 2 diabetes mellitus ICD (implantable cardioverter-defibrillator) in place Iron deficiency anemia Kidney disease Left bundle branch block (LBBB) Morbid obesity Non-ischemic cardiomyopathy Non-smoker Nonsustained ventricular tachycardia Open wound RAQUEL (obstructive sleep apnea) Right foot drop Secondary hyperparathyroidism (of renal origin) Sleep apnea Venous ulcer of left lower extremity without varicose veins Walker as ambulation aid Wears glasses Home Medications allopurinol 300 mg tablet 150 mg PO DAILY GOUT 01/27/16 [History Last Taken 06/22/22] linagliptin 5 mg tablet 5 mg PO DAILY DM 08/05/17 [History Last Taken 06/22/22] ammonium lactate 12 % lotion 1 applicatio TP DAILY PRN PRN IRRITATION 12/23/18 [History Last Taken 06/22/22] latanoprost 0.005 % eye drops 1 drp EACH EYE DAILY GLUCOMA 12/23/18 [History Last Taken 06/22/22] tamsulosin 0.4 mg capsule 0.4 mg PO DAILY PROSTATE 06/21/19 [History Last Taken 06/22/22] amlodipine 10 mg tablet 10 mg PO DAILY BP 01/24/21 [History Last Taken 06/22/22] carvedilol 25 mg tablet 37.5 mg PO DAILY HEART 02/27/21 [History Last Taken 06/22/22] acetaminophen 325 mg tablet (Tylenol) 650 mg PO Q6H PRN PRN Pain Score 1-10 #10 tabs 04/01/21 [Rx Last Taken 06/22/22] ergocalciferol (vitamin D2) 1,250 mcg (50,000 unit) capsule 50,000 unit PO QMONTH supplement 09/25/21 [History Last Taken 06/22/22] sevelamer carbonate 800 mg tablet 3,200 mg PO TID renal 03/26/22 [History Last Taken 06/22/22] nystatin 100,000 unit/gram topical powder 1 applic topical BID redness 06/22/22 [History Last Taken 06/22/22] Allergy/AdvReac Type Severity Reaction Status Date / Time No Known Allergies Allergy Verified 05/16/22 20:21 Family History Father Hypertension Heart disease Diabetes Mother Diabetes Chronic kidney disease Hypertension Anemia Surgical History H/O skin graft History of tonsillectomy and adenoidectomy Hx of appendectomy Hx of tonsillectomy Presence of biventricular implantable cardioverter-defibrillator (ICD) (05/14/11) Social History household members: none Smoking Status: Never smoker alcohol intake: never substance use type: does not use caffeine: Yes ROS Constitutional Constitutional: Reports weakness; Denies chills, fever(s) or malaise Eyes Eyes: Denies loss of vision ENT HEENT: Denies nasal congestion Cardiovascular Cardiovascular: Denies chest pain Respiratory/Chest Respiratory/Chest: Reports dyspnea on exertion and shortness of breath at rest; Denies hemoptysis Gastrointestinal Gastrointestinal: Denies abdominal pain, anorexia or diarrhea Genitourinary Genitourinary: Reports other Details: chronic indwelling lucero catheter ; Denies change in urinary stream Neurologic Neurologic: Denies confusion or focal weakness Hematologic/Lymphatic Hematologic/Lymphatic: Reports anemia Physical Exam Const alert, oriented x3 and no apparent distress General Appearance: well developed Nutritional Appearance: morbidly obese Resp clear to auscultation bilaterally Cardio regular rate GI non-tender Auscultation: normoactive bowel sounds Palpation: soft Extremity no clubbing, cyanosis or edema General Extremity: AV fistula Skin Wound Narrative: chronic venous stasis skin changes BLE Neuro CN's II-XII intact bilaterally Neuro Narrative: developmentally delayed Psych cooperative Lab / Micro Data Result Diagrams: 06/23/22 06:08 06/23/22 06:08 Labs: Laboratory Results - last 24 hr 06/22/22 14:40: WBC 11.4 H, RBC 3.25 L, Hgb 8.8 L, Hct 28.9 L, MCV 88.9, MCH 27.1, MCHC 30.4 L, RDW Std Deviation 53.3 H, RDW Coeff of Jeffrey 16.2 H, Plt Count 214, MPV 10.5, Immature Gran % (Auto) 0.800, Neut % (Auto) 74.5 H, Lymph % (Auto) 10.1 L, [place] % (Auto) 8.7, Eos % (Auto) 5.4 H, Baso % (Auto) 0.5, Absolute Neuts (auto) 8.5 H, Absolute Lymphs (auto) 1.15, Nucleated RBC % 0 06/22/22 14:40: Sodium 135 L, Potassium 4.4, Chloride 95 L, Carbon Dioxide 28.0, Anion Gap 12, BUN 84 H, Creatinine 11.00 H*, Estim Creat Clear Calc 7.32, Est GFR (MDRD) Af Amer 6 L, Est GFR (MDRD) Non-Af 5 L, BUN/Creatinine Ratio 7.6 L, Glucose 108 H, Calcium 8.9, Troponin I High Sens 50 06/22/22 17:22: Troponin I High Sens 48 06/22/22 17:22: Phosphorus 6.1 H, Magnesium 1.8 06/22/22 20:45: Troponin I High Sens 50 06/22/22 21:18: POC Glucose 107 H 06/23/22 06:08: WBC 10.3, RBC 3.10 L, Hgb 8.5 L, Hct 27.4 L, MCV 88.4, MCH 27.4, MCHC 31.0 L, RDW Std Deviation 52.7 H, RDW Coeff of Jeffrey 16.3 H, Plt Count 205, MPV 10.6, Immature Gran % (Auto) 0.600, Neut % (Auto) 71.6 H, Lymph % (Auto) 13.9 L, [place] % (Auto) 8.0, Eos % (Auto) 5.3 H, Baso % (Auto) 0.6, Absolute Neuts (auto) 7.4, Absolute Lymphs (auto) 1.43, Nucleated RBC % 0 06/23/22 06:08: Sodium 136, Potassium 4.9, Chloride 97 L, Carbon Dioxide 24.0, Anion Gap 15, BUN 90 H, Creatinine 12.00 H*, Estim Creat Clear Calc 6.71, Est GFR (MDRD) Af Amer 6 L, Est GFR (MDRD) Non-Af 5 L, BUN/Creatinine Ratio 7.5 L, Glucose 82, Calcium 8.4 L, Total Bilirubin 0.50, AST 13 L, ALT 9 L, Alkaline Phosphatase 61, Total Protein 6.8, Albumin 2.3 L, Globulin 4.5 H, Albumin/Globulin Ratio 0.5 L, Triglycerides 119, Cholesterol 104, LDL Cholesterol 53, VLDL Cholesterol 24, HDL Cholesterol 27 L, TSH 1.52 06/23/22 06:50: POC Glucose 90 Rhythm Strip Rhythm Strip: Paced Rate: 99 Ectopy: None Radiology Impression Chest X-Ray 06/22/22 15:10 IMPRESSION: Cardiomegaly with pulmonary edema. Electronically Signed: Paulie Hammer MD at 16:04 EST ,
[2022-06-23 13:01] LABS: Bedside Glucose 149 mg/dL (74-106)
--- NOTE | 2022-06-23 13:20 | CASEMGMT ---
SW reviewed patient's chart and noted he has [facility]. SW called [facility] [facility] coverage line and notified them patient is in the hospital. Patient's patient case manager is Adina Farr. Patient has a lifeline button, [facility] aides: 3 hours on and , meals from [employer] hot M,W, and F, 2 sack lunches, and 2 frozen, and meals from [facility] 7 per week. SW will notify them when patient is discharaged. Giselle SCHMITT
--- NOTE | 2022-06-23 14:17 | WOUNDNOTE ---
wound photo: left medial lower leg
--- NOTE | 2022-06-23 14:38 | CASEMGMT ---
KAYLI MAYERS assessment: Face to Face with patient for initial transition planning/care coordination assessment. KAYLI MAYERS introduced self and role at [facility], pt voices understanding and consents to assessment. Pt is lying in bed in no distress on room air. Pt is A/Ox4 and answers all questions appropriately. Pt's friend, Manuel, is at bedside during assessment.? Care providers, pharmacy,?and demographics verified. ? Presentation: Increased SOB, 'breathing heavy', denies cough/fevers, TTS HD but missed thursday d/t diarrhea Admitting dx: CHF exac PCP: Dejan Specialists: Shin, cardio; Scott nephgena Preferred Pharmacy: [facility] Insurance: [facility] A/B, [place]? Prescription Benefit:?yes Living Will/HPOA: Pt has LW/HPOA on file at [facility] and his friend, Manuel More, is HPOA. LNOK: Manuel More, friend/HPOA Living Arrangements: Pt lives alone in 1 story apt with no steps and states no concerns at home. Pt is independent with ADL's. Transportation: Pt uses [employer] for transportation to/from OP HD and states no transportation concerns. DME/HHC: Pt has the following DME: shower chair, WW, and hand held shower. Pt states no need for any further DME. Pt has had HHC in the past and has been to [facility]. Pt has aides thru [employer] Thursday/ for about 3 hours/day. Pt has CM thru [facility], Adina snow, voices understanding. Pt states no concerns with going home at time of discharge. Pt is on disability. Pt does not smoke cigarettes or drink ETOH. Pt voices no further concerns/needs. CM to follow for any further discharge planning/needs. Advised pt to ask for CM if any further questions/concerns/needs arise, voices understanding. ? Pt goal: Home Plan: [place] KAYLI MAYERS
[2022-06-23 16:40] LABS: Bedside Glucose 115 mg/dL (74-106)
[2022-06-23] MEDS: Folic Acid/Vitamin B Comp W-C 1 Capsule 1 CAP PO (18:30)
[2022-06-23] MEDS: Cinacalcet HCl 30 MG Tablet 60 MG PO (18:30)
--- NOTE | 2022-06-23 20:25 | PN.HOSP_ITS ---
Subjective Subjective Patient was seen and examined today, I talked with cardiology today about his care-patient an echocardiogram performed today which showed a greatly reduced ejection fraction as compared with an echocardiogram that was performed 3 years ago. I was told by Dr. Melissa today that the echo was not a good study however. He recommended that the patient undergo a stress test-I feel the earliest this could happen would be Thursday as the patient has dialysis tomorrow. I also talked briefly with nephrology about his care today. Objective Data Objective Data Vital Signs: Vital Signs Temp Pulse Resp BP Pulse Ox O2 Del Method O2 Flow Rate 97.7 F L 103 H 18 136/91 H 92 Room Air 1 06/23/22 14:15 06/23/22 18:59 06/23/22 14:15 06/23/22 14:15 06/23/22 14:15 06/23/22 14:57 06/23/22 07:47 FiO2 30 06/23/22 00:17 Oxygen Flow Rate (L/min) 1 Oxygen Delivery Method Room Air Weight: 141.8 kg Body Mass Index (BMI) 43.9 Intake & Output: Intake and Output for Last 24 Hours 06/22/22 06/22/22 06/23/22 00:59 23:59 23:59 Intake Total Output Total 750 / 750 Balance -750 / -750 Lab / Micro Data Result Diagrams: 06/24/22 07:00 06/24/22 07:00 Labs: Laboratory Results - last 24 hr 06/22/22 20:45: Troponin I High Sens 50 06/22/22 21:18: POC Glucose 107 H 06/23/22 06:08: WBC 10.3, RBC 3.10 L, Hgb 8.5 L, Hct 27.4 L, MCV 88.4, MCH 27.4, MCHC 31.0 L, RDW Std Deviation 52.7 H, RDW Coeff of Jeffrey 16.3 H, Plt Count 205, MPV 10.6, Immature Gran % (Auto) 0.600, Neut % (Auto) 71.6 H, Lymph % (Auto) 13.9 L, [place] % (Auto) 8.0, Eos % (Auto) 5.3 H, Baso % (Auto) 0.6, Absolute Neuts (auto) 7.4, Absolute Lymphs (auto) 1.43, Nucleated RBC % 0 06/23/22 06:08: Sodium 136, Potassium 4.9, Chloride 97 L, Carbon Dioxide 24.0, Anion Gap 15, BUN 90 H, Creatinine 12.00 H*, Estim Creat Clear Calc 6.71, Est GFR (MDRD) Af Amer 6 L, Est GFR (MDRD) Non-Af 5 L, BUN/Creatinine Ratio 7.5 L, Glucose 82, Calcium 8.4 L, Total Bilirubin 0.50, AST 13 L, ALT 9 L, Alkaline Phosphatase 61, Total Protein 6.8, Albumin 2.3 L, Globulin 4.5 H, Albumin/Globulin Ratio 0.5 L, Triglycerides 119, Cholesterol 104, LDL Cholesterol 53, VLDL Cholesterol 24, HDL Cholesterol 27 L, TSH 1.52 06/23/22 06:50: POC Glucose 90 06/23/22 12:40: POC Glucose 149 H 06/23/22 16:01: POC Glucose 115 H Radiography Diagnostic Testing: Radiology Impression Echocardiogram 06/23/22 05:55 Interpretation Summary Normal LV size. The estimated ejection fraction is 35 %. Moderately severe segmental systolic dysfunction (see wall motion). The study was technically difficult. Compared to previous study, the left ventricular systolic function has worsened.. Ordering Physician: Carole Roberts Referring Physician: Juany Wylie M.D. Performed By: Julianna Gama RCS Rhythm Strip Rhythm Strip: Paced Rate: 99 Ectopy: None Physical Exam Const alert, oriented x3 and no apparent distress Constitutional Narrative: Patient is morbidly obese General Appearance: cooperative, well kempt and well developed Orientation / Consciousness: awake, oriented to person, oriented to place and oriented to time HEENT normocephalic, head/scalp atraumatic and moist oral mucous membranes Eyes PERRL, EOMs intact bilaterally and conjunctivae normal Neck supple, no JVD and thyroid normal General: trachea midline Resp normal respiratory effort, no retractions, no use of accessory muscles and clear to auscultation bilaterally Auscultation: Negative for rales, rhonchi or wheezes Cardio regular rate, regular rhythm, S1 normal heart sound, S2 normal heart sound, no murmurs, no rub and no gallops GI normal to inspection, nondistended, normoactive bowel sounds, soft to palpation, non-tender and non-distended Extremity no clubbing, cyanosis or edema Skin no rashes or lesions noted General Skin Exam: no breakdown Neuro oriented x3, CN's II-XII intact bilaterally, moves all extremities, no focal motor deficits and no sensory deficits noted Sensorium / Orientation: awake and alert Speech: speech normal Psych affect normal Assessment & Plan Assessment/Plan (1) CAD (coronary artery disease): PLAN: Plan 1. Acute on chronic diastolic congestive heart failure-patient will remain on IV Lasix at this time, again echocardiogram today showed a decreased ejection fraction as compared with the patient's other echocardiogram in the system here, patient will be scheduled for a stress test on Thursday. #2 end-stage renal disease on dialysis-nephrology is participating in his care, patient will have dialysis again tomorrow #3 type 2 diabetes-patient's blood sugars will be monitored, sliding scale insulin will be given as needed #4 essential hypertension-patient will remain on his home medications #5 nonischemic cardiomyopathy-patient will remain on his present medications #6 morbid obesity-complicates care, management, recovery, and prognosis #7 anemia of chronic renal disease-patient does not need transfusion at this time, CBC will be monitored as needed Charges/Coding Visit Charges Inpatient E&M: 21993 Subs Hosp L2
[2022-06-23 22:06] LABS: Bedside Glucose 121 mg/dL (74-106)
[2022-06-24] VITALS (15 sets, daily range): BP systolic 127–149; BP diastolic 82–90; PULSE 84–110; RESP 12–26; TEMP 36.1–36.9; O2SAT 92–96
[2022-06-24 06:55] LABS: Bedside Glucose 99 mg/dL (74-106)
[2022-06-24 07:28] LABS: Absolute Lymphocyte Count 1.21 X10^3/uL (0.83-4.51); Absolute Neutrophil Count 5.7 X10^3/uL (2.0-7.7); Basophil# 0.05 X10^3/uL; Basophil% 0.6 % (0-1); Eosinophil# 0.54 X10^3/uL; Eosinophils% 6.5 % (0-5); Hematocrit 26.7 % (40-54); Hemoglobin 8.5 g/dL (13.0-16.5); Lymphocyte # 1.21 X10^3/ul (0.83-4.51); Lymphocyte % 14.7 % (19-41); Mean Corp Hgb Conc 31.8 g/dL (32-36); Mean Corpuscular Hgb 27.9 pg (27.0-32.0); Mean Corpuscular Volume 87.5 fL (80-94); Mean Platelet Vol. 10.1 fl (6.2-12.0); Monocyte# 0.75 X10^3/uL; Monocyte% 9.1 % (0-10); NRBC Flagged by Analyzer 0 % (0-5); Neutrophil # 5.66 X10^3/uL (2.7-7.7); Neutrophil % 68.6 % (47-70); Platelet Count 190 K/mm3 (150-450); RBC Distribution Width CV 16.4 % (11.6-14.6); RBC Distribution Width SD 52.3 fl (35.1-43.9); Red Blood Count 3.05 M/mm3 (4.6-6.2); White Blood Count 8.3 K/mm3 (4.4-11.0)
[2022-06-24 08:13] LABS: Anion Gap 15 (5-15); BUN 111 mg/dL (7-18); Calcium,Total 8.1 mg/dL (8.5-10.1); Chloride 100 mmol/L (98-107); EST Glomerular Filtration Rate 4 mL/min (>60); Est Glom Filt Rate - Afr Amer 5 mL/min (>60); Estimated Creatinine Clearance 5.84 ml/min; Glucose 100 mg/dL (74-106); Sodium Level 137 mmol/L (136-145)
--- NOTE | 2022-06-24 09:19 | PN.RENAL_ITS ---
Subjective Subjective seen on dialysis, stable clinically, complains of weakness Objective Data Objective Data Vital Signs: Vital Signs Temp Pulse Resp BP Pulse Ox O2 Del Method O2 Flow Rate 97.7 F L 98 20 H 144/89 H 94 Nasal Cannula 1.5 06/24/22 08:15 06/24/22 08:15 06/24/22 08:15 06/24/22 08:15 06/24/22 08:29 06/24/22 08:29 06/24/22 08:29 FiO2 25 06/24/22 02:35 Oxygen Flow Rate (L/min) 1.5 Oxygen Delivery Method Nasal Cannula Weight: 141.5 kg Body Mass Index (BMI) 43.9 Intake & Output: Intake and Output for Last 24 Hours 06/22/22 06/23/22 06/24/22 23:59 23:59 23:59 Intake Total 120 / 120 Output Total 750 / 1050 550 / 550 Balance -750 / -930 -430 / -430 Lab / Micro Data Result Diagrams: 06/24/22 07:00 06/24/22 07:00 Labs: Laboratory Results - last 24 hr 06/23/22 12:40: POC Glucose 149 H 06/23/22 16:01: POC Glucose 115 H 06/23/22 21:01: POC Glucose 121 H 06/24/22 06:28: POC Glucose 99 06/24/22 07:00: WBC 8.3, RBC 3.05 L, Hgb 8.5 L, Hct 26.7 L, MCV 87.5, MCH 27.9, MCHC 31.8 L, RDW Std Deviation 52.3 H, RDW Coeff of Jeffrey 16.4 H, Plt Count 190, MPV 10.1, Immature Gran % (Auto) 0.500, Neut % (Auto) 68.6, Lymph % (Auto) 14.7 L, [place] % (Auto) 9.1, Eos % (Auto) 6.5 H, Baso % (Auto) 0.6, Absolute Neuts (auto) 5.7, Absolute Lymphs (auto) 1.21, Nucleated RBC % 0 06/24/22 07:00: Sodium 137, Potassium 5.0, Chloride 100, Carbon Dioxide 22.0, Anion Gap 15, BUN 111 H*, Creatinine 13.80 H*, Estim Creat Clear Calc 5.84, Est GFR (MDRD) Af Amer 5 L, Est GFR (MDRD) Non-Af 4 L, BUN/Creatinine Ratio 8.0 L, Glucose 100, Calcium 8.1 L Radiography Diagnostic Testing: Radiology Impression Echocardiogram 06/23/22 05:55 Interpretation Summary Normal LV size. The estimated ejection fraction is 35 %. Moderately severe segmental systolic dysfunction (see wall motion). The study was technically difficult. Compared to previous study, the left ventricular systolic function has worsened.. Ordering Physician: Carole Roberts Referring Physician: Juany Wylie M.D. Performed By: Julianna Gama RCS Rhythm Strip Rhythm Strip: Paced Rate: 99 Ectopy: None Physical Exam Const alert and oriented x3 Resp clear to auscultation bilaterally Cardio regular rate GI Auscultation: normoactive bowel sounds Palpation: soft Narrative: obese Extremity no clubbing, cyanosis or edema Assessment & Plan Assessment/Plan (1) End-stage renal disease on hemodialysis: PLAN: dialysis today (2) CHF exacerbation: PLAN: high fluid skyler chronically, fluid removal on dialysis as tolerated (3) Essential hypertension: PLAN: resume home meds (4) Diabetes mellitus, type II: QUALIFIERS: Diabetes mellitus residential insulin use: unspecified intermediate card tender insulin use status Diabetes mellitus complication status: with skin complications Diabetes mellitus complication detail: with other skin ulcer Qualified Code(s): E11.622 - Type 2 diabetes mellitus with other skin ulcer; L98.499 - Non-pressure chronic ulcer of skin of other sites with unspecified severity PLAN: stable (5) Anemia: PLAN: epo, iv iron on dialysis (6) Secondary hyperparathyroidism: PLAN: on calcitriol, sensipar on dialysis, resume phosphate binder
[2022-06-24 11:51] LABS: Bedside Glucose 91 mg/dL (74-106)
--- NOTE | 2022-06-24 12:43 | DIALYSIS ---
Patient tolerated 4 Hour tx well, net UF 3300 cc. Post vital signs BP 127/82. p 84 r-18.
[2022-06-24] MEDS: Epoetin Alfa epbx 10,000 UNITS/ML 10000 UNIT IV (13:20)
[2022-06-24] MEDS: Calcium Acetate 667 MG Capsule 2001 MG PO ×2 (13:20→16:11)
[2022-06-24] MEDS: Calcitriol 0.25 MCG Capsule 1.25 MCG PO (13:22)
[2022-06-24] MEDS: Furosemide 100 MG/10 ML Vial 60 MG IV ×2 (13:23→16:11)
[2022-06-24] MEDS: Aspirin E.C. 81 MG Tablet PO (13:23)
[2022-06-24] MEDS: Folic Acid/Vitamin B Comp W-C 1 Capsule 1 CAP PO (13:24)
[2022-06-24] MEDS: Nystatin Powder 15gm Bottle 1 APPLIC TOPICAL ×2 (13:25→21:27)
[2022-06-24] MEDS: Heparin Injection (Vial) 5,000 UNIT/ML VIAL 5000 UNIT SC ×2 (13:25→21:24)
--- NOTE | 2022-06-24 13:56 | CASEMGMT ---
Call from pt's CM, Adina Farr, asking about whether pt's catheter had been changed while here as she was supposed to set up transport for pt to urologist on 06/27. Per notes and Lloyd MILAN, it does not look like catheter was changed and CM updated. Theron MILAN CM
[2022-06-24 16:35] LABS: Bedside Glucose 157 mg/dL (74-106)
--- NOTE | 2022-06-24 18:05 | PN.HOSP_ITS ---
Subjective Subjective Patient was seen and examined today, his echocardiogram yesterday showed a reduced ejection fraction as compared with his last echocardiogram several years ago. I discussed scheduling a stress test with the patient tomorrow, he is in agreement with this. Patient is currently on 2 L of nasal cannula O2 the time my examination. Patient is currently receiving dialysis today. Objective Data Objective Data Vital Signs: Vital Signs Temp Pulse Resp BP Pulse Ox O2 Del Method O2 Flow Rate 96.9 F L 105 H 18 145/87 H 92 Room Air 2 06/24/22 15:04 06/24/22 16:20 06/24/22 15:04 06/24/22 15:04 06/24/22 15:04 06/24/22 15:04 06/24/22 14:00 FiO2 25 06/24/22 02:35 Oxygen Flow Rate (L/min) 2 Oxygen Delivery Method Room Air Weight: 141.5 kg Body Mass Index (BMI) 43.9 Intake & Output: Intake and Output for Last 24 Hours 06/22/22 06/23/22 06/24/22 23:59 23:59 23:59 Intake Total 120 / 120 Output Total 750 / 1050 3850 / 3850 Balance -750 / -930 -3730 / -3730 Lab / Micro Data Result Diagrams: 06/24/22 07:00 06/24/22 07:00 Labs: Laboratory Results - last 24 hr 06/23/22 21:01: POC Glucose 121 H 06/24/22 06:28: POC Glucose 99 06/24/22 07:00: WBC 8.3, RBC 3.05 L, Hgb 8.5 L, Hct 26.7 L, MCV 87.5, MCH 27.9, MCHC 31.8 L, RDW Std Deviation 52.3 H, RDW Coeff of Jeffrey 16.4 H, Plt Count 190, MPV 10.1, Immature Gran % (Auto) 0.500, Neut % (Auto) 68.6, Lymph % (Auto) 14.7 L, [place] % (Auto) 9.1, Eos % (Auto) 6.5 H, Baso % (Auto) 0.6, Absolute Neuts (auto) 5.7, Absolute Lymphs (auto) 1.21, Nucleated RBC % 0 06/24/22 07:00: Sodium 137, Potassium 5.0, Chloride 100, Carbon Dioxide 22.0, Anion Gap 15, BUN 111 H*, Creatinine 13.80 H*, Estim Creat Clear Calc 5.84, Est GFR (MDRD) Af Amer 5 L, Est GFR (MDRD) Non-Af 4 L, BUN/Creatinine Ratio 8.0 L, Glucose 100, Calcium 8.1 L 06/24/22 11:30: POC Glucose 91 06/24/22 16:08: POC Glucose 157 H Rhythm Strip Rhythm Strip: Paced Rate: 99 Ectopy: None Physical Exam Const alert, oriented x3 and no apparent distress Constitutional Narrative: Patient is morbidly obese General Appearance: cooperative, well kempt and well developed Orientation / Consciousness: awake, oriented to person, oriented to place and oriented to time HEENT normocephalic, head/scalp atraumatic and moist oral mucous membranes Eyes PERRL, EOMs intact bilaterally and conjunctivae normal Neck supple, no JVD, thyroid normal and no carotid bruits General: trachea midline Resp normal respiratory effort, no retractions and no use of accessory muscles Resp Narrative: Inspiratory rales are noted over the lung bases bilaterally Auscultation: rales; Negative for rhonchi or wheezes Cardio regular rate, regular rhythm, S1 normal heart sound, S2 normal heart sound, no murmurs, no rub and no gallops GI normal to inspection, nondistended, normoactive bowel sounds, soft to palpation, non-tender and non-distended Extremity no clubbing, cyanosis or edema Skin no rashes or lesions noted General Skin Exam: no breakdown Neuro oriented x3, CN's II-XII intact bilaterally, no focal motor deficits and no sensory deficits noted Sensorium / Orientation: awake and alert Speech: speech normal Psych affect normal Assessment & Plan Assessment/Plan (1) CHF exacerbation: (2) CAD (coronary artery disease): PLAN: Plan 1. Acute on chronic diastolic congestive heart failure-patient will remain on IV Lasix at this time, again echocardiogram today showed a decreased ejection fraction as compared with the patient's other echocardiogram in the system here, patient will be scheduled for a stress test on Thursday. #2 end-stage renal disease on dialysis-nephrology is participating in his care, patient will have dialysis again tomorrow #3 type 2 diabetes-patient's blood sugars will be monitored, sliding scale insulin will be given as needed #4 essential hypertension-patient will remain on his home medications #5 nonischemic cardiomyopathy-patient will remain on his present medications #6 morbid obesity-complicates care, management, recovery, and prognosis #7 anemia of chronic renal disease-patient does not need transfusion at this time, CBC will be monitored as needed Charges/Coding Visit Charges Inpatient E&M: 90578 Subs Hosp L2
[2022-06-24 21:35] LABS: Bedside Glucose 133 mg/dL (74-106)
[2022-06-25] VITALS (18 sets, daily range): BP systolic 123–153; BP diastolic 76–105; PULSE 79–100; RESP 18–20; TEMP 36.3–36.9; O2SAT 93–100
--- NOTE | 2022-06-25 04:29 | EKG12_ITS ---
Test Reason : ACW Blood Pressure : / mmHG Vent. Rate : 092 BPM Atrial Rate : 092 BPM P-R Int : 000 ms QRS Dur : 160 ms QT Int : 442 ms P-R-T Axes : 091 259 099 degrees QTc Int : 546 ms Ventricular-paced rhythm Abnormal ECG When compared with ECG of 22-JUN-2022 14:47, MANUAL COMPARISON REQUIRED, DATA IS UNCONFIRMED Confirmed by TRE ARCHER, KARL ([id number]), purchase request editor VALENTINA DONOVAN ([id number]) on 06/25/2022 1:23:49 PM Referred By: Confirmed By:KARL TOLEDO MD
[2022-06-25] MEDS: Aspirin E.C. 81 MG Tablet PO (06:17)
[2022-06-25 06:26] LABS: Bedside Glucose 99 mg/dL (74-106)
[2022-06-25] MEDS: Furosemide 100 MG/10 ML Vial 60 MG IV ×2 (10:58→17:38)
[2022-06-25] MEDS: 0.9% Saline Lock 10 ML Syringe IV ×2 (10:58→17:38)
[2022-06-25] MEDS: Folic Acid/Vitamin B Comp W-C 1 Capsule 1 CAP PO (10:59)
[2022-06-25] MEDS: Nystatin Powder 15gm Bottle 1 APPLIC TOPICAL ×2 (10:59→20:47)
[2022-06-25 11:30] LABS: Bedside Glucose 115 mg/dL (74-106)
--- NOTE | 2022-06-25 12:27 | PCM.PN.REN ---
Subjective Subjective denies chest pain Objective Data Objective Data Vital Signs: Vital Signs Temp Pulse Resp BP Pulse Ox O2 Del Method O2 Flow Rate 97.5 F L 98 18 126/76 H 96 Nasal Cannula 1 06/25/22 11:00 06/25/22 11:00 06/25/22 11:00 06/25/22 11:00 06/25/22 11:00 06/25/22 11:00 06/25/22 11:00 FiO2 25 06/24/22 02:35 Oxygen Flow Rate (L/min) 1 Oxygen Delivery Method Nasal Cannula Weight: 136.1 kg Body Mass Index (BMI) 43.9 Intake & Output: Intake and Output for Last 24 Hours 06/23/22 06/24/22 06/25/22 23:59 23:59 23:59 Intake Total 120 / 120 120 / 120 Output Total 750 / 1050 3850 / 3850 825 / 825 Balance -750 / -930 -3730 / -3730 -705 / -705 Lab / Micro Data Result Diagrams: 06/24/22 07:00 06/24/22 07:00 Labs: Laboratory Results - last 24 hr 06/24/22 16:08: POC Glucose 157 H 06/24/22 21:15: POC Glucose 133 H 06/25/22 06:05: POC Glucose 99 06/25/22 11:08: POC Glucose 115 H Rhythm Strip Rhythm Strip: Paced Rate: 99 Ectopy: None Physical Exam Const alert and oriented x3 Resp clear to auscultation bilaterally Cardio regular rate GI non-tender Auscultation: normoactive bowel sounds Palpation: soft Extremity no clubbing, cyanosis or edema General Extremity: AV fistula Assessment & Plan Assessment/Plan (1) End-stage renal disease on hemodialysis: PLAN: dialysis yesterday with 3+ fluid removal. (2) CHF exacerbation: PLAN: high fluid skyler chronically, fluid removal on dialysis as tolerated (3) Essential hypertension: PLAN: resume home meds (4) Diabetes mellitus, type II: QUALIFIERS: Diabetes mellitus intermediate designer insulin use: unspecified correction insulin use status Diabetes mellitus complication status: with skin complications Diabetes mellitus complication detail: with other skin ulcer Qualified Code(s): E11.622 - Type 2 diabetes mellitus with other skin ulcer; L98.499 - Non-pressure chronic ulcer of skin of other sites with unspecified severity PLAN: stable (5) Anemia: PLAN: epo, iv iron on dialysis (6) Secondary hyperparathyroidism: PLAN: on calcitriol, sensipar on dialysis, resume phosphate binder (7) CAD (coronary artery disease): PLAN: stress test today
--- NOTE | 2022-06-25 15:17 | CON.PCM.CA_ITS ---
Assessment & Plan Assessment/Plan (1) CAD (coronary artery disease): PLAN: He does appear to have coronary artery disease based on the segmental abnormalities noted on his echocardiogram as well as the stress test. On the basis of the above it was decided to proceed with a left heart catheterization. It demonstrated the following: Normal left main coronary artery. Left anterior descending artery which is a medium size vessel with a mid segment moderately severe stenotic lesion. First diagonal branch with a moderate proximal stenosis. Left circumflex artery which is large codominant with no high-grade stenosis. Right coronary artery with a focal mid to high-grade stenotic lesion Based on the above venographic findings I would recommend that we pursue PCI of the right coronary artery and left anterior descending artery in a staged manner. (2) Presence of biventricular implantable cardioverter-defibrillator (ICD): PLAN: He does have evidence of a biventricular implantable defibrillator. We would recommend checking the above to make sure that there is no abnormality noted. (3) Essential hypertension: PLAN: He does have a history of hypertension and I will recommend that we put him back on his carvedilol 25 mg twice a day and on amlodipine or STACY inhibitor depending on nephrology preference. (4) Afib: PLAN: He appears to be in atrial fibrillation and would attempt rate control as well as anticoagulation. Thank you for allowing me to participate in the care of your patient. Please don't hesitate to call if any issues arise. HPI Consult Data Date of Consult: 06/25/22 HPI Narrative HPI Narrative: JUVENCIO QUINTERO, is a 61 M who presented to emergency room with shortness of breath over the weekend. He does have a history of previous nonischemic cardiomyopathy which apparently resolved with an ejection fraction of 55%. He had a previous ICD implanted for nonsustained ventricular tachyarrhythmia as well as a history of hypertension. He also has a history of chronic anemia and is on hemodialysis. He was admitted to the hospital he ruled out for myocardial infarction and he had an echocardiogram performed which demonstrated segmental wall motion abnormalities as well as a reduced ejection fraction. It was a difficult study. The estimated ejection fraction was 35%. He subsequently went on to have pharmacologic myocardial perfusion stress test after I had spoken and discussed the case with the hospitalist. It demonstrated a large area of inferior infarct extending to the apex as well as the lateral wall. On the basis of this as well as the reduced ejection fraction it was determined that he should undergo formal evaluation of his coronary anatomy. He denies any chest pain per se no syncope or presyncope and no palpitations. He is not very compliant with his medications. [facility] Medical History Acute on chronic renal failure Ambulates with cane Benign prostatic hyperplasia Chronic diastolic (congestive) heart failure Chronic indwelling Lucero catheter CKD stage 5 due to type 2 diabetes mellitus Congestive heart failure (CHF) Diabetes Diabetes mellitus, type II Dialysis patient End-stage renal disease on hemodialysis Essential hypertension Falls frequently Lucero catheter in place Gout History of renal dialysis Hydronephrosis concurrent with and due to calculi of kidney and ureter Hyperlipidemia Hyperosmolar non-ketotic state in patient with type 2 diabetes mellitus ICD (implantable cardioverter-defibrillator) in place Iron deficiency anemia Kidney disease Left bundle branch block (LBBB) Morbid obesity Non-ischemic cardiomyopathy Non-smoker Nonsustained ventricular tachycardia Open wound RAQUEL (obstructive sleep apnea) Right foot drop Secondary hyperparathyroidism (of renal origin) Sleep apnea Venous ulcer of left lower extremity without varicose veins Walker as ambulation aid Wears glasses Home Medications allopurinol 300 mg tablet 150 mg PO DAILY GOUT 01/27/16 [History Last Taken 06/22/22] linagliptin 5 mg tablet 5 mg PO DAILY DM 08/05/17 [History Last Taken 06/22/22] ammonium lactate 12 % lotion 1 applicatio TP DAILY PRN PRN IRRITATION 12/23/18 [History Last Taken 06/22/22] latanoprost 0.005 % eye drops 1 drp EACH EYE DAILY GLUCOMA 12/23/18 [History Last Taken 06/22/22] tamsulosin 0.4 mg capsule 0.4 mg PO DAILY PROSTATE 06/21/19 [History Last Taken 06/22/22] amlodipine 10 mg tablet 10 mg PO DAILY BP 01/24/21 [History Last Taken 06/22/22] carvedilol 25 mg tablet 37.5 mg PO DAILY HEART 02/27/21 [History Last Taken 06/22/22] acetaminophen 325 mg tablet (Tylenol) 650 mg PO Q6H PRN PRN Pain Score 1-10 #10 tabs 04/01/21 [Rx Last Taken 06/22/22] ergocalciferol (vitamin D2) 1,250 mcg (50,000 unit) capsule 50,000 unit PO QMONTH supplement 09/25/21 [History Last Taken 06/22/22] sevelamer carbonate 800 mg tablet 3,200 mg PO TID renal 03/26/22 [History Last Taken 06/22/22] nystatin 100,000 unit/gram topical powder 1 applic topical BID redness 06/22/22 [History Last Taken 06/22/22] Allergy/AdvReac Type Severity Reaction Status Date / Time No Known Allergies Allergy Verified 05/16/22 20:21 Family History Father Hypertension Heart disease Diabetes Mother Diabetes Chronic kidney disease Hypertension Anemia Surgical History H/O skin graft History of tonsillectomy and adenoidectomy Hx of appendectomy Hx of tonsillectomy Presence of biventricular implantable cardioverter-defibrillator (ICD) (05/14/11) Social History household members: none Smoking Status: Never smoker alcohol intake: never substance use type: does not use caffeine: Yes ROS Constitutional Constitutional: Reports weakness; Denies chills, fever(s) or malaise Eyes Eyes: Denies loss of vision ENT HEENT: Denies nasal congestion Cardiovascular Cardiovascular: Denies chest pain Respiratory/Chest Respiratory/Chest: Reports dyspnea on exertion and shortness of breath at rest; Denies hemoptysis Gastrointestinal Gastrointestinal: Denies abdominal pain, anorexia or diarrhea Genitourinary Genitourinary: Reports other Details: chronic indwelling lucero catheter ; Denies change in urinary stream Neurologic Neurologic: Denies confusion or focal weakness Hematologic/Lymphatic Hematologic/Lymphatic: Reports anemia Physical Exam Const alert, oriented x3 and no apparent distress General Appearance: cooperative HEENT hearing grossly normal bilaterally Head and Scalp: atraumatic Eyes EOMs intact bilaterally Neck General: normal visual inspection Chest inspection of chest normal and palpation of chest normal Resp normal respiratory effort Auscultation: clear to auscultation bilaterally Cardio regular rate, regular rhythm, S1 normal heart sound and S2 normal heart sound Jugular Venous Distention: JVD GI normal to inspection, nondistended, normoactive bowel sounds Extremity normal capillary refill and no pedal edema Peripheral Pulses: Yes pulses 2+ throughout and femoral pulses present Skin no rashes or lesions noted Neuro oriented x3 and CN's II-XII intact bilaterally Psych Appearance: grossly normal and appropriate Risk Stratification Risk Stratification Applicable: No Objective Data Vital Signs: Vital Signs Temp Pulse Resp BP Pulse Ox O2 Del Method O2 Flow Rate 97.5 F L 98 18 126/76 H 96 Nasal Cannula 1 06/25/22 11:00 06/25/22 11:00 06/25/22 11:00 06/25/22 11:00 06/25/22 11:00 06/25/22 13:45 06/25/22 13:45 FiO2 25 06/24/22 02:35 Oxygen Flow Rate (L/min) 1 Oxygen Delivery Method Nasal Cannula Weight: 300 lb 0.786 oz Body Mass Index (BMI) 43.9 Intake & Output: Intake and Output for Last 24 Hours 06/23/22 06/24/22 06/25/22 23:59 23:59 23:59 Intake Total 120 / 120 120 / 120 Output Total 750 / 1050 3850 / 3850 825 / 825 Balance -750 / -930 -3730 / -3730 -705 / -705 Lab / Micro Data Result Diagrams: 06/24/22 07:00 06/24/22 07:00 Labs: Laboratory Results - last 24 hr 06/24/22 16:08: POC Glucose 157 H 06/24/22 21:15: POC Glucose 133 H 06/25/22 06:05: POC Glucose 99 06/25/22 11:08: POC Glucose 115 H Rhythm Strip Rhythm Strip: Paced Rate: 99 Ectopy: None Cardiology Labs/Tests Rhythm: EKG: ECHO: Stress Test: Cardiac Cath: PCI: CT Surgery: Holter monitor: EPS: PPM: CXR: Chest CT Scan:
[2022-06-25] MEDS: Calcium Acetate 667 MG Capsule 2001 MG PO (16:45)
--- NOTE | 2022-06-25 17:18 | CL.D_ITS ---
Patient Name: JUVENCIO QUINTERO Study Date: 06/25/2022 Performing: Darren Melissa MD Ht: 71 inches 180.34 cm : 1960 Wt: 300.4 lbs 136.1 kg Age: 61 Gender: male BSA: 2.51 PROCEDURE(S) PERFORMED [id number])[facility] CLINICAL PROFILE AND INDICATIONS Indications: Suspected CAD Heart Failure: NYHA Class: 2, Newly Diagnosed: Yes, Heart Failure Type: Systolic Stress/Imaging Date: 06/25/22Stress Test with SPECT MPI: Positive Intermediate Risk CAD Presentations: Other: sob CONCLUSIONS Severe CAD with LAD disease and RCA stenosis. And LV dysfunction with EF 35%. RECOMMENDATIONS For PCI at a tertiary care facilty due to calcification DESCRIPTION OF PROCEDURE The patient arrived to the procedure lab. The risks and benefits of the procedure as well as a full description of our services here and current unavailability of surgical backup were fully explained to the patient and/or their significant other prior to the catheterization. The Timeout was completed, verifying the correct patient and procedure. The patient's procedural site was prepped and draped in the usual fashion. Local anesthetic was given subcutaneously to right groin region with Lidocaine 2%. Using a modified Seldinger technique, arterial access was obtained via the right femoral artery, a 5Fr sheath was inserted. Left Coronary Artery selective angiography was performed in multiple views using a 5 Fr. JL4 catheter. Right Coronary Artery selective angiography was then performed in multiple views using a 5 Fr. 3DRC (Richar) catheter.Contrast was injected through the sheath and the Right Iliac and Femoral artery were assessed for possible closure device.The arterial sheath was pulled and manual compression applied until hemostasis is achieved. CORONARY ANGIOGRAPHY DOMINANCE: Co- Dominant LEFT HEART ASSESSMENT Global Hypokinesis - Moderate Depressed Left Ventricular systolic function The patient was noted to have a groin hematoma with possible extravasation of dye. The patient had been referred for a PCI but based on the above it was felt that this should be deferred. LEFT MAIN: Angiographically normal LEFT ANTERIOR DESCENDING ARTERY: Large vessel with moderate calcification especially in the midsegment with a first diagonal vessel with proximal 60 to 70% stenosis in the LAD having 70 to 80% stenosis in the moderately calcified segment. The distal LAD appears to be totally occluded. CIRCUMFLEX ARTERY: Large vessel with no high-grade stenosis noted. The first obtuse marginal branch appears to supply collaterals to the distal LAD segment. There is an AV groove branch and a posterior lateral vessel which appeared to be free of significant disease. RIGHT CORONARY ARTERY: Mildly diffusely diseased vessel with mid segment having a focal 70% stenotic lesion noted. COMPLICATIONS No Complications PROCEDURE MEDICATIONS Versed 1 mg IV Oxygen: 2 L/min via nasal cannula Brilinta 180 mg PO @ 06/25/2022 15:19:16 SUMMARY OF HEMODYNAMIC DATA Time AIR REST ECG 14:17:35 AO 139/82 (101) SA 14:55:11 Signed By Darren Melissa MD On 06/25/2022 17:17:37 Darren Melissa MD
--- NOTE | 2022-06-25 17:19 | STRESSREP ---
Stress Test Report Pharmacologic myocardial perfusion stress test. 61-year-old man with a history of chronic renal failure and left ventricular systolic dysfunction. Resting EKG demonstrates sinus rhythm with a rate of 102 bpm and left bundle branch block pattern is noted. 0.4 mg of regadenoson was infused per usual protocol followed by rapid intravenous saline flush injection continuous EKG monitoring was performed. The maximum heart rate attained was noted to be 107 bpm which was 68% of max impacted heart rate the maximum workload was 1 metabolic equivalent. At rest there were no ST or T wave changes noted to suggest abnormal flow reserve and at peak infusion nonspecific ST changes were noted with did not meet the criteria for ischemia. No clinical angina was noted. The final blood pressure was 110/78 mmHg. Myocardial perfusion protocol. 14.8 mCi of technetium 99m sestamibi was injected at rest. 0.4 mg of regadenoson was infused per usual protocol. At peak infusion 43.0 mCi of technetium 99m sestamibi was injected stress images were obtained stress and rest images were reconstructed and compared in the short axis vertical long and horizontal long axis. Gated images were also obtained to Perfusion SPECT analysis: Review of the stress images demonstrate a dilated cardiac silhouette size. There was an extensive perfusion defect noted involving the inferior wall extending to the apex as well as the lateral wall. The anterior wall appeared to be well perfused. The resting images demonstrated a similar pattern suggestive of her previous infarct involving the inferior, inferior apex and inferolateral wall. No obvious reversibility was noted to suggest ischemia. Gated SPECT analysis: The gated ejection fraction was approximately 35%. Conclusion: Pharmacologic myocardial perfusion stress test with evidence of extensive inferior and inferolateral and inferoapical infarct. Cardiomyopathy present.
[2022-06-25 18:25] LABS: Bedside Glucose 108 mg/dL (74-106)
--- NOTE | 2022-06-25 19:45 | PCM.PN.HOSP ---
Subjective Subjective Patient was seen and examined today, he underwent a stress test which showed hypokinesis over the inferior wall and a reduced ejection fraction. I talked with cardiology about his care and they elected to take him for cardiac catheterization today. 2 occlusive coronary lesions were noted-1 in the LAD and 1 in the right coronary artery, I received a call from the bag machine operator however that stated that because of severe calcifications in these vessels, a stent could not be placed in them and they recommended transfer to a tertiary center for rotablation. I was unable to get the patient transferred to [facility], he is currently on a waiting list to the [facility] Objective Data Objective Data Vital Signs: Vital Signs Temp Pulse Resp BP Pulse Ox O2 Del Method O2 Flow Rate 98.4 F 97 20 H 135/88 H 94 Room Air 2 06/25/22 18:55 06/25/22 18:55 06/25/22 18:55 06/25/22 18:55 06/25/22 18:55 06/25/22 18:55 06/25/22 16:40 FiO2 25 06/24/22 02:35 Oxygen Flow Rate (L/min) 2 Oxygen Delivery Method Room Air Weight: 136.1 kg Body Mass Index (BMI) 43.9 Intake & Output: Intake and Output for Last 24 Hours 06/23/22 06/24/22 06/25/22 23:59 23:59 23:59 Intake Total 120 / 120 480 / 480 Output Total 750 / 1050 3850 / 3850 965 / 965 Balance -750 / -930 -3730 / -3730 -485 / -485 Lab / Micro Data Result Diagrams: 06/24/22 07:00 06/24/22 07:00 Labs: Laboratory Results - last 24 hr 06/24/22 21:15: POC Glucose 133 H 06/25/22 06:05: POC Glucose 99 06/25/22 11:08: POC Glucose 115 H 06/25/22 16:17: POC Glucose 108 H Rhythm Strip Rhythm Strip: Paced Rate: 99 Ectopy: None Physical Exam Narrative alert, oriented x3 and no apparent distress Constitutional Narrative: Patient is morbidly obese General Appearance: cooperative, well kempt and well developed Orientation / Consciousness: awake, oriented to person, oriented to place and oriented to time HEENT normocephalic, head/scalp atraumatic and moist oral mucous membranes Eyes PERRL, EOMs intact bilaterally and conjunctivae normal Neck supple, no JVD, thyroid normal and no carotid bruits General: trachea midline Resp normal respiratory effort, no retractions and no use of accessory muscles Resp Narrative: Inspiratory rales are noted over the lung bases bilaterally Auscultation: rales; Negative for rhonchi or wheezes Cardio regular rate, regular rhythm, S1 normal heart sound, S2 normal heart sound, no murmurs, no rub and no gallops GI normal to inspection, nondistended, normoactive bowel sounds, soft to palpation, non-tender and non-distended Extremity no clubbing, cyanosis or edema Skin no rashes or lesions noted General Skin Exam: no breakdown Neuro oriented x3, CN's II-XII intact bilaterally, no focal motor deficits and no sensory deficits noted Sensorium / Orientation: awake and alert Speech: speech normal Psych affect normal Assessment & Plan Assessment/Plan (1) CAD (coronary artery disease): (2) CHF exacerbation: PLAN: Plan 1. Acute on chronic diastolic congestive heart failure-patient will remain on IV Lasix at this time, he will undergo dialysis tomorrow #2 occlusive coronary artery disease-patient is on a waiting list to be transferred for intervention at this time. Patient's medications were readjusted by cardiology #3 end-stage renal disease on dialysis-nephrology is participating in his care, patient will have dialysis again tomorrow #4 type 2 diabetes-patient's blood sugars will be monitored, sliding scale insulin will be given as needed #5 essential hypertension-patient will remain on his home medications #6 nonischemic cardiomyopathy-patient will remain on his present medications #7 morbid obesity-complicates care, management, recovery, and prognosis #8 anemia of chronic renal disease-patient does not need transfusion at this time, CBC will be monitored as needed Charges/Coding Visit Charges Inpatient E&M: 78878 Subs Hosp L2
--- NOTE | 2022-06-25 20:45 | NURSING ---
Pt out of bed, walked the hallway w walker. pt then asst back to bed. cath site no bleeding and soft.
[2022-06-25] MEDS: Heparin Injection (Vial) 5,000 UNIT/ML VIAL 5000 UNIT SC (20:47)
[2022-06-25] MEDS: Atorvastatin Calcium 80 MG Tablet PO (20:47)
[2022-06-25] MEDS: Carvedilol 25 MG Tablet PO (20:47)
[2022-06-25 22:00] LABS: Bedside Glucose 129 mg/dL (74-106)
[2022-06-26] VITALS (14 sets, daily range): BP systolic 106–138; BP diastolic 61–85; PULSE 69–81; RESP 12–25; TEMP 36.5–37.2; O2SAT 94–98
[2022-06-26 05:23] LABS: Hematocrit 25.7 % (40-54); Hemoglobin 8.2 g/dL (13.0-16.5); Mean Corp Hgb Conc 31.9 g/dL (32-36); Mean Corpuscular Hgb 27.8 pg (27.0-32.0); Mean Corpuscular Volume 87.1 fL (80-94); Mean Platelet Vol. 9.8 fl (6.2-12.0); Platelet Count 202 K/mm3 (150-450); RBC Distribution Width CV 16.3 % (11.6-14.6); RBC Distribution Width SD 51.2 fl (35.1-43.9); Red Blood Count 2.95 M/mm3 (4.6-6.2); White Blood Count 8.7 K/mm3 (4.4-11.0)
[2022-06-26 05:54] LABS: Anion Gap 12 (5-15); BUN 71 mg/dL (7-18); BUN/Creat Ratio 6.8 RATIO (10-20); Calcium,Total 8.7 mg/dL (8.5-10.1); Chloride 98 mmol/L (98-107); EST Glomerular Filtration Rate 5 mL/min (>60); Est Glom Filt Rate - Afr Amer 6 mL/min (>60); Estimated Creatinine Clearance 7.67 ml/min; Glucose 103 mg/dL (74-106); Magnesium 2.2 mg/dL (1.6-2.6); Potassium 4.4 mmol/L (3.5-5.1); Sodium Level 136 mmol/L (136-145)
[2022-06-26 06:06] LABS: International Normalized Ratio 1.3; Prothrombin Time (Protime)PT. 16.2 SECONDS (11.7-14.9)
[2022-06-26 06:07] LABS: Partial Thromboplast Time 38.4 Seconds (24.1-36.2)
[2022-06-26 06:56] LABS: Bedside Glucose 103 mg/dL (74-106)
--- NOTE | 2022-06-26 08:44 | PN.RENAL_ITS ---
Subjective Subjective currently receiving dialysis. Denied CP, SOB. No edema. Appetite good Objective Data Objective Data Vital Signs: Vital Signs Temp Pulse Resp BP Pulse Ox O2 Del Method O2 Flow Rate 98.1 F 76 18 138/78 H 96 Room Air 2 06/26/22 04:14 06/26/22 08:44 06/26/22 08:44 06/26/22 08:44 06/26/22 04:14 06/26/22 08:44 06/26/22 04:14 FiO2 96 06/26/22 08:44 Oxygen Flow Rate (L/min) 2 Oxygen Delivery Method Room Air Weight: 136.1 kg Body Mass Index (BMI) 43.9 Intake & Output: Intake and Output for Last 24 Hours 06/24/22 06/25/22 06/26/22 23:59 23:59 23:59 Intake Total 120 / 120 920 / 920 360 / 360 Output Total 3850 / 3850 1265 / 1265 100 / 100 Balance -3730 / -3730 -345 / -345 260 / 260 Lab / Micro Data Result Diagrams: 06/26/22 05:00 06/26/22 05:00 Labs: Laboratory Results - last 24 hr 06/25/22 11:08: POC Glucose 115 H 06/25/22 16:17: POC Glucose 108 H 06/25/22 20:54: POC Glucose 129 H 06/26/22 05:00: WBC 8.7, RBC 2.95 L, Hgb 8.2 L, Hct 25.7 L, MCV 87.1, MCH 27.8, MCHC 31.9 L, RDW Std Deviation 51.2 H, RDW Coeff of Jeffrey 16.3 H, Plt Count 202, MPV 9.8 06/26/22 05:00: PT 16.2 H, INR 1.3, APTT 38.4 H 06/26/22 05:00: Sodium 136, Potassium 4.4, Chloride 98, Carbon Dioxide 26.0, Anion Gap 12, BUN 71 H, Creatinine 10.50 H*, Estim Creat Clear Calc 7.67, Est GFR (MDRD) Af Amer 6 L, Est GFR (MDRD) Non-Af 5 L, BUN/Creatinine Ratio 6.8 L, Glucose 103, Calcium 8.7 06/26/22 05:00: Phosphorus 7.0 H, Magnesium 2.2 06/26/22 06:29: POC Glucose 103 Rhythm Strip Rhythm Strip: Paced Rate: 99 Ectopy: None Physical Exam Const alert and oriented x3 Resp clear to auscultation bilaterally Cardio regular rate Extremity no clubbing, cyanosis or edema Neuro Sensorium / Orientation: awake and alert Psych cooperative Assessment & Plan Assessment/Plan (1) End-stage renal disease on hemodialysis: PLAN: dialysis today (2) CHF exacerbation: PLAN: fluid removal on dialysis as tolerated (3) Essential hypertension: PLAN: stable (4) Diabetes mellitus, type II: 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 Cardiology following
--- NOTE | 2022-06-26 09:19 | PCM.PN.CARD ---
Subjective Subjective Patient seen and evaluated. Objective Data Vital Signs: Vital Signs Temp Pulse Resp BP Pulse Ox O2 Del Method O2 Flow Rate 98.1 F 76 18 138/78 H 96 Room Air 2 06/26/22 04:14 06/26/22 08:44 06/26/22 08:44 06/26/22 08:44 06/26/22 04:14 06/26/22 08:44 06/26/22 04:14 FiO2 96 06/26/22 08:44 Oxygen Flow Rate (L/min) 2 Oxygen Delivery Method Room Air Weight: 300 lb 0.786 oz Body Mass Index (BMI) 43.9 Intake & Output: Intake and Output for Last 24 Hours 06/24/22 06/25/22 06/26/22 23:59 23:59 23:59 Intake Total 120 / 120 920 / 920 360 / 360 Output Total 3850 / 3850 1265 / 1265 100 / 100 Balance -3730 / -3730 -345 / -345 260 / 260 Lab / Micro Data Result Diagrams: 06/26/22 05:00 06/26/22 05:00 Labs: Laboratory Results - last 24 hr 06/25/22 11:08: POC Glucose 115 H 06/25/22 16:17: POC Glucose 108 H 06/25/22 20:54: POC Glucose 129 H 06/26/22 05:00: WBC 8.7, RBC 2.95 L, Hgb 8.2 L, Hct 25.7 L, MCV 87.1, MCH 27.8, MCHC 31.9 L, RDW Std Deviation 51.2 H, RDW Coeff of Jeffrey 16.3 H, Plt Count 202, MPV 9.8 06/26/22 05:00: PT 16.2 H, INR 1.3, APTT 38.4 H 06/26/22 05:00: Sodium 136, Potassium 4.4, Chloride 98, Carbon Dioxide 26.0, Anion Gap 12, BUN 71 H, Creatinine 10.50 H*, Estim Creat Clear Calc 7.67, Est GFR (MDRD) Af Amer 6 L, Est GFR (MDRD) Non-Af 5 L, BUN/Creatinine Ratio 6.8 L, Glucose 103, Calcium 8.7 06/26/22 05:00: Phosphorus 7.0 H, Magnesium 2.2 06/26/22 06:29: POC Glucose 103 Rhythm Strip Rhythm Strip: Paced Rate: 99 Ectopy: None Cardiology Labs/Tests 06/26/22 05:00: WBC 8.7, RBC 2.95 L, Hgb 8.2 L, Hct 25.7 L, MCV 87.1, MCH 27.8, MCHC 31.9 L, Plt Count 202, MPV 9.8 06/26/22 05:00: PT 16.2 H, INR 1.3, APTT 38.4 H 06/26/22 05:00: Sodium 136, Potassium 4.4, Chloride 98, Carbon Dioxide 26.0, Anion Gap 12, BUN 71 H, Creatinine 10.50 H*, Est GFR (MDRD) Af Amer 6 L, Est GFR (MDRD) Non-Af 5 L, BUN/Creatinine Ratio 6.8 L, Glucose 103, Calcium 8.7 06/26/22 05:00: Phosphorus 7.0 H, Magnesium 2.2 Rhythm: EKG: ECHO: Stress Test: Cardiac Cath: PCI: CT Surgery: Holter monitor: EPS: PPM: CXR: Chest CT Scan: Physical Exam Const alert, oriented x3 and no apparent distress General Appearance: cooperative HEENT hearing grossly normal bilaterally Head and Scalp: atraumatic Eyes EOMs intact bilaterally Neck General: normal visual inspection Chest inspection of chest normal and palpation of chest normal Resp normal respiratory effort Auscultation: clear to auscultation bilaterally Cardio regular rate, regular rhythm, S1 normal heart sound and S2 normal heart sound Jugular Venous Distention: JVD GI normal to inspection, nondistended, normoactive bowel sounds Extremity normal capillary refill and no pedal edema Peripheral Pulses: Yes pulses 2+ throughout and femoral pulses present Skin no rashes or lesions noted Neuro oriented x3 and CN's II-XII intact bilaterally Psych Appearance: grossly normal and appropriate Assessment & Plan Assessment/Plan (1) CAD (coronary artery disease): PLAN: He does appear to have coronary artery disease based on the segmental abnormalities noted on his echocardiogram as well as the stress test. On the basis of the above it was decided to proceed with a left heart catheterization. It demonstrated the following: Normal left main coronary artery. Left anterior descending artery which is a medium size vessel with a mid segment moderately severe stenotic lesion. First diagonal branch with a moderate proximal stenosis. Left circumflex artery which is large codominant with no high-grade stenosis. Right coronary artery with a focal mid to high-grade stenotic lesion Based on the above venographic findings I would recommend that we pursue PCI of the right coronary artery and left anterior descending artery in a staged manner. This after consideration would need to be done in a tertiary care facility. (2) Presence of biventricular implantable cardioverter-defibrillator (ICD): PLAN: He does have evidence of a biventricular implantable defibrillator. We would recommend checking the above to make sure that there is no abnormality noted. (3) Essential hypertension: PLAN: He does have a history of hypertension and I will recommend that we put him back on his carvedilol 25 mg twice a day and on amlodipine or STACY inhibitor depending on nephrology preference. (4) Afib: PLAN: His rhythm was reviewed and it appears to be sinus rhythm with frequent premature atrial complexes. Thank you for allowing me to participate in the care of your patient. Please don't hesitate to call if any issues arise.
[2022-06-26] MEDS: Epoetin Alfa epbx 10,000 UNITS/ML 10000 UNIT IV (10:07)
[2022-06-26] MEDS: Cinacalcet HCl 30 MG Tablet 60 MG PO (10:07)
[2022-06-26 10:16] LABS: Hepatitis B Surface Antigen Non-Reactive (Nonreactive)
[2022-06-26 11:55] LABS: Bedside Glucose 142 mg/dL (74-106)
--- NOTE | 2022-06-26 12:22 | DIALYSIS ---
Hemodialysis complete with 2 liters fluid removed. Stasis obtained in left forearm AV fistula after needles removed. Pt tolerated treatment without difficulty.
[2022-06-26] MEDS: Furosemide 100 MG/10 ML Vial 60 MG IV ×2 (12:34→17:21)
[2022-06-26] MEDS: Folic Acid/Vitamin B Comp W-C 1 Capsule 1 CAP PO (12:34)
[2022-06-26] MEDS: Aspirin E.C. 81 MG Tablet PO (12:34)
[2022-06-26] MEDS: Nystatin Powder 15gm Bottle 1 APPLIC TOPICAL ×2 (12:34→22:18)
[2022-06-26] MEDS: Heparin Injection (Vial) 5,000 UNIT/ML VIAL 5000 UNIT SC ×2 (12:34→22:17)
[2022-06-26] MEDS: 0.9% Saline Lock 10 ML Syringe IV (12:34)
[2022-06-26] MEDS: Carvedilol 25 MG Tablet PO ×2 (12:35→22:18)
[2022-06-26] MEDS: Calcium Acetate 667 MG Capsule 2001 MG PO ×2 (12:35→17:20)
--- NOTE | 2022-06-26 12:35 | NURSING ---
Morning medications given late at this time due to dialysis
[2022-06-26 17:05] LABS: Bedside Glucose 124 mg/dL (74-106)
--- NOTE | 2022-06-26 17:37 | PCM.PN.HOSP ---
Subjective Subjective RequirePatient was seen and examined today, he does not require supplemental oxygen today, he was given dialysis today. We still have not been informed of a bed for the patient at the [facility] at this time. Patient has no complaints of any chest pain. Objective Data Objective Data Vital Signs: Vital Signs Temp Pulse Resp BP Pulse Ox O2 Del Method O2 Flow Rate 98.2 F 81 16 114/63 95 Room Air 2 06/26/22 15:51 06/26/22 15:51 06/26/22 15:51 06/26/22 15:51 06/26/22 15:51 06/26/22 15:51 06/26/22 07:44 FiO2 96 06/26/22 08:44 Oxygen Flow Rate (L/min) 2 Oxygen Delivery Method Room Air Weight: 136.1 kg Body Mass Index (BMI) 43.9 Intake & Output: Intake and Output for Last 24 Hours 06/24/22 06/25/22 06/26/22 23:59 23:59 23:59 Intake Total 120 / 120 920 / 920 710 / 710 Output Total 3850 / 3850 1265 / 1265 4225 / 4225 Balance -3730 / -3730 -345 / -345 -3515 / -3515 Lab / Micro Data Result Diagrams: 06/26/22 05:00 06/26/22 05:00 Labs: Laboratory Results - last 24 hr 06/24/22 07:00: Hep Bs Antigen Non-Reactive 06/25/22 16:17: POC Glucose 108 H 06/25/22 20:54: POC Glucose 129 H 06/26/22 05:00: WBC 8.7, RBC 2.95 L, Hgb 8.2 L, Hct 25.7 L, MCV 87.1, MCH 27.8, MCHC 31.9 L, RDW Std Deviation 51.2 H, RDW Coeff of Jeffrey 16.3 H, Plt Count 202, MPV 9.8 06/26/22 05:00: PT 16.2 H, INR 1.3, APTT 38.4 H 06/26/22 05:00: Sodium 136, Potassium 4.4, Chloride 98, Carbon Dioxide 26.0, Anion Gap 12, BUN 71 H, Creatinine 10.50 H*, Estim Creat Clear Calc 7.67, Est GFR (MDRD) Af Amer 6 L, Est GFR (MDRD) Non-Af 5 L, BUN/Creatinine Ratio 6.8 L, Glucose 103, Calcium 8.7 06/26/22 05:00: Phosphorus 7.0 H, Magnesium 2.2 06/26/22 06:29: POC Glucose 103 06/26/22 11:36: POC Glucose 142 H 06/26/22 16:44: POC Glucose 124 H Rhythm Strip Rhythm Strip: Paced Rate: 99 Ectopy: None Physical Exam Narrative alert, oriented x3 and no apparent distress Constitutional Narrative: Patient is morbidly obese General Appearance: cooperative, well kempt and well developed Orientation / Consciousness: awake, oriented to person, oriented to place and oriented to time HEENT normocephalic, head/scalp atraumatic and moist oral mucous membranes Eyes PERRL, EOMs intact bilaterally and conjunctivae normal Neck supple, no JVD, thyroid normal and no carotid bruits General: trachea midline Resp normal respiratory effort, no retractions and no use of accessory muscles Resp Narrative: Inspiratory rales are noted over the lung bases bilaterally Auscultation: rales; Negative for rhonchi or wheezes Cardio regular rate, regular rhythm, S1 normal heart sound, S2 normal heart sound, no murmurs, no rub and no gallops GI normal to inspection, nondistended, normoactive bowel sounds, soft to palpation, non-tender and non-distended Extremity no clubbing, cyanosis or edema Skin no rashes or lesions noted General Skin Exam: no breakdown Neuro oriented x3, CN's II-XII intact bilaterally, no focal motor deficits and no sensory deficits noted Sensorium / Orientation: awake and alert Speech: speech normal Psych affect normal Assessment & Plan Assessment/Plan (1) CAD (coronary artery disease): (2) CHF exacerbation: PLAN: Plan 1. Acute on chronic diastolic congestive heart failure-patient will remain on IV Lasix at this time #2 occlusive coronary artery disease-patient is on a waiting list to be transferred for intervention at the [facility] at this time. Patient's medications were readjusted by cardiology yesterday #3 end-stage renal disease on dialysis-nephrology is participating in his care #4 type 2 diabetes-patient's blood sugars will be monitored, sliding scale insulin will be given as needed #5 essential hypertension-patient will remain on his home medications #6 nonischemic cardiomyopathy-patient will remain on his present medications #7 morbid obesity-complicates care, management, recovery, and prognosis #8 anemia of chronic renal disease-patient does not need transfusion at this time, CBC will be monitored as needed Charges/Coding Visit Charges Inpatient E&M: 49890 Subs Hosp L2
[2022-06-26] MEDS: Atorvastatin Calcium 80 MG Tablet PO (22:18)
[2022-06-26] MEDS: Insulin Lispro 100 UNIT/ML INSULN.PEN SC (22:26)
[2022-06-26 22:50] LABS: Bedside Glucose 162 mg/dL (74-106)
[2022-06-27 00:55] VITALS: O2SAT 93
[2022-06-27 02:59] VITALS: PULSE 77
[2022-06-27 05:31] VITALS: BP 102/62; PULSE 73; RESP 18; TEMP 36.6; O2SAT 94
[2022-06-27 06:55] LABS: Bedside Glucose 109 mg/dL (74-106)
[2022-06-27 07:00] VITALS: PULSE 75
--- NOTE | 2022-06-27 08:17 | NURSING ---
Called report to Mary MILAN at [facility]
[2022-06-27 09:10] VITALS: BP 111/60; PULSE 80; RESP 16; TEMP 37.3; O2SAT 95
[2022-06-27] MEDS: Aspirin E.C. 81 MG Tablet PO (09:10)
[2022-06-27] MEDS: Calcium Acetate 667 MG Capsule 2001 MG PO (09:10)
[2022-06-27] MEDS: Carvedilol 25 MG Tablet PO (09:10)
[2022-06-27] MEDS: Furosemide 100 MG/10 ML Vial 60 MG IV (09:11)
[2022-06-27] MEDS: Folic Acid/Vitamin B Comp W-C 1 Capsule 1 CAP PO (09:11)
[2022-06-27] MEDS: Heparin Injection (Vial) 5,000 UNIT/ML VIAL 5000 UNIT SC (09:11)
[2022-06-27] MEDS: 0.9% Saline Lock 10 ML Syringe IV (09:11)
--- NOTE | 2022-07-09 14:37 | PCM.DC.SUM ---
Providers Date of Admission: 06/22/22 Date of Discharge: 06/27/22 Primary Care Physician: Dr. Juany Wylie MD Consultations 06/22/22 19:40 Consult: Nephrology Routine Consulting Provider: Omaira Chavez Reason for Consult: CHF exac admission, consider HD thursday. EMERGENT Consult: No Notified: Yes Date Notified: 06/23/22 Time Notified: 08:10 Method of Notification: Text Consult: Onc/Wound/safety relief valve technician Routine Comment: 06/25/22 13:55 Consult: Cardiology Routine Consulting Provider: Darren Melissa Reason for Consult: abnormal ECHO EMERGENT Consult: No Notified: Yes Date Notified: 06/25/22 Time Notified: 13:55 Method of Notification: Verbal Reason For Visit: CHF EXACERBATION Diagnosis Discharge Diagnosis (1) CAD (coronary artery disease): Status: Acute Code(s): I25.10 - Atherosclerotic heart disease of [place] coronary artery without angina pectoris (2) CHF exacerbation: Status: Chronic Code(s): I50.9 - Heart failure, unspecified Plan 1. Acute on chronic diastolic congestive heart failure-patient will remain on IV Lasix at this time #2 occlusive coronary artery disease-patient is on a waiting list to be transferred for intervention at the [facility] at this time. Patient's medications were readjusted by cardiology yesterday #3 end-stage renal disease on dialysis-nephrology is participating in his care #4 type 2 diabetes-patient's blood sugars will be monitored, sliding scale insulin will be given as needed #5 essential hypertension-patient will remain on his home medications #6 ischemic cardiomyopathy-patient will remain on his present medications #7 morbid obesity-complicates care, management, recovery, and prognosis #8 anemia of chronic renal disease-patient does not need transfusion at this time, CBC will be monitored as needed Medications at Discharge Home Medications allopurinol 300 mg tablet 150 mg PO DAILY GOUT 01/27/16 linagliptin 5 mg tablet 5 mg PO DAILY DM 08/05/17 ammonium lactate 12 % lotion 1 applicatio TP DAILY PRN PRN IRRITATION 12/23/18 latanoprost 0.005 % eye drops 1 drp EACH EYE DAILY GLUCOMA 12/23/18 tamsulosin 0.4 mg capsule 0.4 mg PO DAILY PROSTATE 06/21/19 amlodipine 10 mg tablet 10 mg PO DAILY BP 06/10/21 carvedilol 25 mg tablet 37.5 mg PO DAILY HEART 02/27/21 acetaminophen 325 mg tablet (Tylenol) 650 mg PO Q6H PRN PRN Pain Score 1-10 #10 tabs 04/01/21 ergocalciferol (vitamin D2) 1,250 mcg (50,000 unit) capsule 50,000 unit PO QMONTH supplement 09/25/21 sevelamer carbonate 800 mg tablet 3,200 mg PO TID renal 03/26/22 nystatin 100,000 unit/gram topical powder 1 applic topical BID redness 06/22/22 Hospital Course Operations None Procedures 2-D Echocardiogram, Cardiac catheterization and Dialysis Summary of Care Provided Minutes Spent on Discharge: 31 Hospital Course: This 61-year-old white male was seen in the emergency room with complaints of shortness of breath, patient is a chronic dialysis patient, he denied any chest pain, on examination, the patient's pulse ox was 96% on room air, chest x-ray obtained showed cardiomegaly with pulmonary edema, troponin was normal, patient's creatinine was elevated at 11. CBC showed an elevated white count 11.4, hemoglobin was 8.8. Patient was eventually placed on nasal cannula oxygen, he was given IV Lasix in the emergency room, the hospitalist was contacted and the patient was admitted to PCU for acute on chronic diastolic CHF. IV Lasix was continued on the patient. Nephrology saw the patient and the patient was dialyzed in the hospital. He also underwent an echocardiogram which was abnormal showing a low ejection fraction of 35%. This result was different from an echocardiogram that was performed 3 years prior, I talked with cardiology (Dr. Melissa) and it was recommended the patient undergo a stress test. The stress test showed a gated ejection fraction of approximately 35% and there was evidence of extensive inferior and inferior lateral and inferior apical abnormalities consistent with an infarct. Due to the patient's history of nonischemic cardiomyopathy, a cardiology consultation was performed, a cardiac catheterization was carried out which revealed a stenotic lesion in the left anterior descending artery, high-grade stenosis in the right coronary artery, due to this it was recommended that the patient be transferred to a tertiary facility for further care. [facility] was contacted and agreed to accept the patient. Patient was seen and examined on 06/27/2022:alert, oriented x3 and no apparent distress Constitutional Narrative: Patient is morbidly obese General Appearance: cooperative, well kempt and well developed Orientation / Consciousness: awake, oriented to person, oriented to place and oriented to time HEENT normocephalic, head/scalp atraumatic and moist oral mucous membranes Eyes PERRL, EOMs intact bilaterally and conjunctivae normal Neck supple, no JVD, thyroid normal and no carotid bruits General: trachea midline Resp normal respiratory effort, no retractions and no use of accessory muscles Resp Narrative: Inspiratory rales are noted over the lung bases bilaterally Auscultation: rales; Negative for rhonchi or wheezes Cardio regular rate, regular rhythm, S1 normal heart sound, S2 normal heart sound, no murmurs, no rub and no gallops GI normal to inspection, nondistended, normoactive bowel sounds, soft to palpation, non-tender and non-distended Extremity no clubbing, cyanosis or edema Skin no rashes or lesions noted General Skin Exam: no breakdown Neuro oriented x3, CN's II-XII intact bilaterally, no focal motor deficits and no sensory deficits noted Sensorium / Orientation: awake and alert Speech: speech normal Psych affect normal Patient was discharged in stable condition to the [facility] on 06/27/2022. Weight / BMI Weight Weight: 134.5 kg Body Mass Index (BMI) 43.9 ABG / Lab / Microbiology Data Result Diagrams: 06/26/22 05:00 06/26/22 05:00 Meaningful Use Info Meaningful Use Diagnoses (Choose all that apply): CHF CHF STACY/ARB ordered at discharge?: No Reason STACY/ARB not ordered?: Allergy (Patient transferred to [facility] for further treatment) Documented LVEF (%): 35 Discharge Plan Admission Admit Date/Time: 06/22/22 18:32 Attending Provider: Cain Goldstein Primary Care Provider: Juany Wylie Consulting Providers: Carole Roberts ; Omaira Chavez ; Darren Melissa Instructions Patient Instructions: Pulmonary Edema, ED Dyspnea Additional Instructions / Restrictions: You have some fluid on your lungs which will resolve with dialysis. However since she will be dialyzed until Thursday we will give you a dose of Lasix now which should help get the fluid off your lungs. Return if you are feeling worse. Make sure you get your dialysis on Thursday. Discharge Orders/Prescriptions Prescriptions: No Action tamsulosin 0.4 mg capsule 0.4 mg PO DAILY ergocalciferol (vitamin D2) 1,250 mcg (50,000 unit) capsule 50,000 unit PO QMONTH Label Comments: take 1 capsule by mouth every MONTH sevelamer carbonate 800 mg tablet 3,200 mg PO TID Label Comments: take 2 tablets by mouth three times a day with meals allopurinol 300 MG tablet 150 mg PO DAILY carvedilol 25 mg tablet 37.5 mg PO DAILY linagliptin 5 MG tablet 5 mg PO DAILY latanoprost 1 DROP bottle 1 drp EACH EYE DAILY ammonium lactate 226 GM lotion 1 applicatio TP DAILY PRN PRN (Reason: IRRITATION) Label Comments: APPLY DIRECTED TO BOTH LEGS FROM KNEES TO FEET IF NEEDED amlodipine 10 mg tablet 10 mg PO DAILY acetaminophen [Tylenol] 325 mg Tablet 650 mg PO Q6H PRN PRN (Reason: Pain Score 1-10) Qty: 10 0RF nystatin 100,000 unit/gram powder 1 applic topical BID Referrals / Follow Up: Juany Wylie MD [Primary Care Provider] - 3-5 Days if not improving Disposition Disposition (needs filled in before D/C Order can be placed): Acute Care Hospital Charges/Coding Visit Charges Inpatient E&M: [id number] Disch Hosp
== END 2022-06-27 09:25 | disposition short-term general hospital (02) | DRG 286 ==
LOC: ED 18:12 → PCU 21:00
PROVIDERS: Family Medicine; Internal Medicine Cardiovascular Disease; Internal Medicine Nephrology; Admitting Provider Family Medicine; Emergency Provider Emergency Medicine; PCP Internal Medicine; Visit Provider Internal Medicine
DX: I13.2 Hypertensive heart and chronic kidney disease with heart failure and with stage 5 chronic kidney disease, or end stage renal disease (principal); N18.6 End stage renal disease; I50.33 Acute on chronic diastolic (congestive) heart failure; L97.929 Non-pressure chronic ulcer of unspecified part of left lower leg with unspecified severity; N13.8 Other obstructive and reflux uropathy; N25.81 Secondary hyperparathyroidism of renal origin; Z68.41 Body mass index [BMI] 40.0-44.9, adult; I42.8 Other cardiomyopathies; D63.1 Anemia in chronic kidney disease; E11.22 Type 2 diabetes mellitus with diabetic chronic kidney disease; E66.01 Morbid (severe) obesity due to excess calories; Z99.2 Dependence on renal dialysis; E11.622 Type 2 diabetes mellitus with other skin ulcer; I48.91 Unspecified atrial fibrillation; I25.10 Atherosclerotic heart disease of native coronary artery without angina pectoris; I25.82 Chronic total occlusion of coronary artery; E78.5 Hyperlipidemia, unspecified; G47.33 Obstructive sleep apnea (adult) (pediatric); I25.5 Ischemic cardiomyopathy; N40.1 Benign prostatic hyperplasia with lower urinary tract symptoms; Z95.810 Presence of automatic (implantable) cardiac defibrillator; R09.02 Hypoxemia; Z79.84 Long term (current) use of oral hypoglycemic drugs; Z79.899 Other long term (current) drug therapy
CPT/HCPCS: 36415; 71045; 78452; 80048; 80053; 80061; 82962; 83735; 84100; 84443; 84484; 85025; 85027; 85610; 85730; 87340; 90937; 93005; 93017; 93306; 93458; 94002; 94003; 97162; 97166; 97802; 99152; 99153; 99251; 99285; A9500; J7030; J7040; Q9957; A4216; C1887; G0257; G0463; J1940; J2785; J2916; Q5106; Q9967

== ENCOUNTER 2022-08-02 13:40 | Emergency (ER) | payer MEDICARE, MEDICAID, SELFPAY ==
[2022-08-02 13:43] VITALS: BP 77/51; PULSE 54; RESP 20; TEMP 36.1; O2SAT 86; BMI 38.2
[2022-08-02 13:48] VITALS: O2SAT 91
--- NOTE | 2022-08-02 14:03 | EKG12_ITS ---
Test Reason : GENERAL ILLNESS Blood Pressure : / mmHG Vent. Rate : 084 BPM Atrial Rate : 084 BPM P-R Int : 000 ms QRS Dur : 172 ms QT Int : 482 ms P-R-T Axes : 105 248 099 degrees QTc Int : 569 ms Ventricular-paced rhythm , premature ventricular complexes Biventricular pacemaker detected Abnormal ECG Confirmed by TRE ARCHER, KARL ([id number]), school photograph editor VALENTINA DONOVAN ([id number]) on 08/04/2022 12:45:44 PM Referred By: NADEGE Confirmed By:KARL TOLEDO MD
--- NOTE | 2022-08-02 14:03 | RAD_ITS ---
STUDY: X-RAY CHEST REASON FOR EXAM: Male, 61 years old. Chest pain TECHNIQUE: Single AP portable view of the chest. COMPARISON: June 22, 2022 chest x-ray FINDINGS: There is a left-sided pacer defibrillator. Lungs are hypoinflated. There is improved aeration of the lungs. There is no demonstrated pleural abnormality. There is mild cardiac enlargement. Normal mediastinum and andi. Normal visualized pulmonary arteries. There is atherosclerotic calcification of the aortic arch with tortuosity. There are diffuse degenerative changes of the visualized thoracic spine. Normal visualized ribs, clavicles, and shoulders. There is no demonstrated abnormality of the visualized soft tissue structures of the upper abdomen. RAD/Chest 1 View (Portable) IMPRESSION: Mild cardiomegaly. Defibrillator. No visualized focal infiltrate. Electronically Signed: Lety Hooks MD at 19:06 EST ,
--- NOTE | 2022-08-02 14:08 | CT_ITS ---
EXAM: CT HEAD WITHOUT INTRAVENOUS CONTRAST CLINICAL INDICATION: Mental status change TECHNIQUE: Multiple axial images were obtained of the head without intravenous contrast. This CT exam was performed using one or more of the following dose reduction techniques: automated exposure control, adjustment of the mA and/or kV according to patient size, and/or use of iterative reconstruction technique. This report was created using [employer] report generation technology. RADIATION DOSE: CTDIvol = 44.99 mGy, DLP = 812.98 mGy-cm COMPARISON: CT head without contrast 12/23/2018. FINDINGS: BRAIN AND EXTRA-AXIAL SPACES: Prominent CSF spaces overlying the frontal lobe convexities due to cerebral atrophy rather than hygromas. These were present previously. No midline shift and no mass effects. No intra- or extra-axial hemorrhage. No evidence of acute infarct. There is preservation of the tuttle/white matter interface. Posterior fossa structures are unremarkable. Basal cisterns are patent. BONES/JOINTS: Unremarkable. No discrete lytic or blastic abnormalities. SINUSES: Unremarkable as visualized. Clear. MASTOID AIR CELLS: Unremarkable. Clear. ORBITS: Visualized globes, extraocular muscles, optic nerves and retrobulbar fat appear unremarkable. CT/Brain/Head without Contrast IMPRESSION: 1. No acute findings in the head/brain. 2. Prominent subarachnoid space overlying the frontal lobe convexities due to cerebral cortical atrophy. 3. No significant interval change when compared to 12/23/2018. Electronically Signed: Amadeo Ruiz MD at 15:29 EST ,
--- NOTE | 2022-08-02 14:10 | EX.ED.DYSGE1 ---
HPI History of Present Illness Chief Complaint: Alt LOC Narrative Narrative: 61-year-old male with history of CHF, CAD, hyperlipidemia, diabetes type 2, end-stage renal disease on dialysis Thursday, Thursday, Thursday. He states that he feels out of sorts. When I asked him to describe what that means he states I do not know I do not feel good [facility] Medical History Acute on chronic renal failure Ambulates with cane Benign prostatic hyperplasia Chronic diastolic (congestive) heart failure Chronic indwelling Barnes catheter CKD stage 5 due to type 2 diabetes mellitus Congestive heart failure (CHF) Diabetes Diabetes mellitus, type II Dialysis patient End-stage renal disease on hemodialysis Essential hypertension Falls frequently Barnes catheter in place Gout History of renal dialysis Hydronephrosis concurrent with and due to calculi of kidney and ureter Hyperlipidemia Hyperosmolar non-ketotic state in patient with type 2 diabetes mellitus ICD (implantable cardioverter-defibrillator) in place Iron deficiency anemia Kidney disease Left bundle branch block (LBBB) Morbid obesity Non-ischemic cardiomyopathy Non-smoker Nonsustained ventricular tachycardia Open wound RAQUEL (obstructive sleep apnea) Right foot drop Secondary hyperparathyroidism (of renal origin) Sleep apnea Venous ulcer of left lower extremity without varicose veins Walker as ambulation aid Wears glasses Home Medications allopurinol 300 mg tablet 150 mg PO DAILY GOUT 01/27/16 [History Last Taken 06/22/22] linagliptin 5 mg tablet 5 mg PO DAILY DM 08/05/17 [History Last Taken 06/22/22] ammonium lactate 12 % lotion 1 applicatio TP DAILY PRN PRN IRRITATION 12/23/18 [History Last Taken 06/22/22] latanoprost 0.005 % eye drops 1 drp EACH EYE DAILY GLUCOMA 12/23/18 [History Last Taken 06/22/22] tamsulosin 0.4 mg capsule 0.4 mg PO DAILY PROSTATE 06/21/19 [History Last Taken 06/22/22] amlodipine 10 mg tablet 10 mg PO DAILY BP 01/24/21 [History Last Taken 06/22/22] carvedilol 25 mg tablet 37.5 mg PO DAILY HEART 02/27/21 [History Last Taken 06/22/22] acetaminophen 325 mg tablet (Tylenol) 650 mg PO Q6H PRN PRN Pain Score 1-10 #10 tabs 04/01/21 [Rx Last Taken 06/22/22] ergocalciferol (vitamin D2) 1,250 mcg (50,000 unit) capsule 50,000 unit PO QMONTH supplement 09/25/21 [History Last Taken 06/22/22] sevelamer carbonate 800 mg tablet 3,200 mg PO TID renal 03/26/22 [History Last Taken 06/22/22] nystatin 100,000 unit/gram topical powder 1 applic topical BID redness 06/22/22 [History Last Taken 06/22/22] Allergy/AdvReac Type Severity Reaction Status Date / Time aluminum Allergy PT UNSURE Verified 08/02/22 13:42 OF REACTION amoxicillin [From Augmentin] Allergy PT UNSURE Verified 08/02/22 13:42 OF REACTION clavulanic acid Allergy PT UNSURE Verified 08/02/22 13:42 [From Augmentin] OF REACTION Family History Father Hypertension Heart disease Diabetes Mother Diabetes Chronic kidney disease Hypertension Anemia Surgical History H/O skin graft History of tonsillectomy and adenoidectomy Hx of appendectomy Hx of tonsillectomy Presence of biventricular implantable cardioverter-defibrillator (ICD) (05/14/11) Social History household members: none Smoking Status: Never smoker alcohol intake: never substance use type: does not use caffeine: Yes EXAM Physical Exam Const Vital Signs: 08/02/22 13:43 08/02/22 13:48 08/02/22 14:03 Temperature 97.0 F L Temperature Source Temporal Pulse Rate 54 L Respiratory Rate 20 H Blood Pressure 77/51 L Blood Pressure Mean 59 Pulse Ox 86 91 Oxygen Delivery Method Room Air Nasal Cannula Nasal Cannula Oxygen Flow Rate (L/min) 3 2 08/02/22 15:41 08/02/22 17:00 08/02/22 19:00 Temperature Temperature Source Pulse Rate 74 Respiratory Rate 20 H 16 Blood Pressure 119/97 H 112/84 H Blood Pressure Mean 104 93 Pulse Ox 96 Oxygen Delivery Method Room Air Oxygen Flow Rate (L/min) 12/17/22 21:00 Temperature Temperature Source Pulse Rate Respiratory Rate 20 H Blood Pressure Blood Pressure Mean Pulse Ox Oxygen Delivery Method Oxygen Flow Rate (L/min) MDM MDM MDM Narrative Medical decision making narrative: Patient presenting with increasing confusion from the assisted. He is a poor informant. He states he hurts everywhere. There is nothing specific. No history of falls. Nursing staff contacted the assisted said he is agitated more than usual. Initial blood pressure was low but this is the only isolated low blood pressure that we had. He has been normotensive since that time. Sepsis work-up was pursued and CBC shows no leukocytosis. Hemoglobin stable at 11.2. Coagulation studies unremarkable. His lactic acid was elevated at 2.1. Ammonia levels normal. Creatinine elevated at 15.9 however the patient has end-stage renal disease and missed dialysis on Thursday. Initial high-sensitivity troponin is 56. Delta troponin 50. Patient has been on oxygen but apparently he wears 2 to 6 L as needed at home. EKG on my interpretation shows paced rhythm at 84 bpm without sign of ischemic change. Chest x-ray shows no acute cardiopulmonary process on my interpretation the radiologist represents and agrees. BNP 57.6. Patient was found to have an indwelling Barnes catheter. It is unclear when this was placed but it looks like its been there chronically. This is in the medical record. We called the assisted to discuss whether he is getting Barnes catheter care and they are unable to tell me who seen him for it or change the Barnes catheter. Apparently the patient was just moved to a new hallway. We did exchange the Barnes catheter as it had dark urine in it. Patient has not made any urine while he is in the ER. Repeat lactic acid 1.8. It is unclear what the significance of the lactic acid patient is as there is no sign of infection. Patient will be transferred back to the assisted. He will need to have dialysis this week. He does not have any signs of volume overload here. Impression: 1. Confusion 2. Hypotension resolved Lab Data Attestation: I reviewed the patient's lab results. Labs: Laboratory Results - last 24 hr 08/02/22 08/02/22 08/02/22 14:43 14:43 14:46 WBC 10.8 RBC 3.88 L Hgb 11.2 L Hct 36.5 L MCV 94.1 H MCH 28.9 MCHC 30.7 L RDW Std Deviation 64.5 H RDW Coeff of Jeffrey 19.3 H Plt Count 135 L MPV 10.5 Immature Gran % (Auto) 0.700 Neut % (Auto) 70.7 H Lymph % (Auto) 11.3 L Nobles % (Auto) 11.5 H Eos % (Auto) 5.1 H Baso % (Auto) 0.7 Absolute Neuts (auto) 7.6 Absolute Lymphs (auto) 1.21 Nucleated RBC % 0 PT 16.3 H INR 1.3 Sodium Potassium Chloride Carbon Dioxide Anion Gap BUN Creatinine Estim Creat Clear Calc Est GFR (MDRD) Af Amer Est GFR (MDRD) Non-Af BUN/Creatinine Ratio Glucose Lactic Acid 2.1 H* Calcium Total Bilirubin Direct Bilirubin AST ALT Alkaline Phosphatase Ammonia Troponin I High Sens B-Natriuretic Peptide Total Protein Albumin Globulin 08/02/22 08/02/22 08/02/22 14:46 14:46 15:35 WBC RBC Hgb Hct MCV MCH MCHC RDW Std Deviation RDW Coeff of Jeffrey Plt Count MPV Immature Gran % (Auto) Neut % (Auto) Lymph % (Auto) Nobles % (Auto) Eos % (Auto) Baso % (Auto) Absolute Neuts (auto) Absolute Lymphs (auto) Nucleated RBC % PT INR Sodium 139 Potassium 4.3 Chloride 96 L Carbon Dioxide 30.0 Anion Gap 13 BUN 76 H Creatinine 15.90 H* Estim Creat Clear Calc 5.22 Est GFR (MDRD) Af Amer 4 L Est GFR (MDRD) Non-Af 3 L BUN/Creatinine Ratio 4.8 L Glucose 119 H Lactic Acid Calcium 9.2 Total Bilirubin 0.60 Direct Bilirubin 0.24 AST 29 ALT 16 Alkaline Phosphatase 88 Ammonia 17.0 Troponin I High Sens 56 B-Natriuretic Peptide 57.6 Total Protein 8.4 H Albumin 3.1 L Globulin 5.3 H 08/02/22 08/02/22 18:15 20:08 WBC RBC Hgb Hct MCV MCH MCHC RDW Std Deviation RDW Coeff of Jeffrey Plt Count MPV Immature Gran % (Auto) Neut % (Auto) Lymph % (Auto) Nobles % (Auto) Eos % (Auto) Baso % (Auto) Absolute Neuts (auto) Absolute Lymphs (auto) Nucleated RBC % PT INR Sodium Potassium Chloride Carbon Dioxide Anion Gap BUN Creatinine Estim Creat Clear Calc Est GFR (MDRD) Af Amer Est GFR (MDRD) Non-Af BUN/Creatinine Ratio Glucose Lactic Acid 1.8 Calcium Total Bilirubin Direct Bilirubin AST ALT Alkaline Phosphatase Ammonia Troponin I High Sens 50 B-Natriuretic Peptide Total Protein Albumin Globulin Radiography Diagnostic Testing: Clinical Impression(s) from Imaging Studies Chest X-Ray 08/02/22 14:03 IMPRESSION: Mild cardiomegaly. Defibrillator. No visualized focal infiltrate. Electronically Signed: Lety Hooks MD at 19:06 EST , Brain CT 08/02/22 14:08 IMPRESSION: 1. No acute findings in the head/brain. 2. Prominent subarachnoid space overlying the frontal lobe convexities due to cerebral cortical atrophy. 3. No significant interval change when compared to 12/23/2018. Electronically Signed: Amadeo Ruiz MD at 15:29 EST , Discharge Plan Triage Chief Complaint: Alt LOC ED Provider: Gerhard Kramer Dx/Rx/DC Orders Instructions: ED ALOC Prescriptions: No Action tamsulosin 0.4 mg capsule 0.4 mg PO DAILY ergocalciferol (vitamin D2) 1,250 mcg (50,000 unit) capsule 50,000 unit PO QMONTH Label Comments: take 1 capsule by mouth every MONTH sevelamer carbonate 800 mg tablet 3,200 mg PO TID Label Comments: take 2 tablets by mouth three times a day with meals allopurinol 300 MG tablet 150 mg PO DAILY carvedilol 25 mg tablet 37.5 mg PO DAILY linagliptin 5 MG tablet 5 mg PO DAILY latanoprost 1 DROP bottle 1 drp EACH EYE DAILY ammonium lactate 226 GM lotion 1 applicatio TP DAILY PRN PRN (Reason: IRRITATION) Label Comments: APPLY DIRECTED TO BOTH LEGS FROM KNEES TO FEET IF NEEDED amlodipine 10 mg tablet 10 mg PO DAILY acetaminophen [Tylenol] 325 mg Tablet 650 mg PO Q6H PRN PRN (Reason: Pain Score 1-10) Qty: 10 0RF nystatin 100,000 unit/gram powder 1 applic topical BID Primary Care Provider: Juany Wylie Referrals: Juany Wylie MD [Primary Care Provider] - Disposition Disposition: Home, Self Care
[2022-08-02 15:03] LABS: International Normalized Ratio 1.3; Prothrombin Time (Protime)PT. 16.3 SECONDS (11.7-14.9)
[2022-08-02 15:25] LABS: Lactic Acid 2.1 mmol/L (0.4-1.9)
[2022-08-02 15:37] LABS: Absolute Lymphocyte Count 1.21 X10^3/uL (0.83-4.51); Absolute Neutrophil Count 7.6 X10^3/uL (2.0-7.7); Basophil# 0.07 X10^3/uL; Basophil% 0.7 % (0-1); Eosinophil# 0.55 X10^3/uL; Eosinophils% 5.1 % (0-5); Hematocrit 36.5 % (40-54); Hemoglobin 11.2 g/dL (13.0-16.5); Lymphocyte # 1.21 X10^3/ul (0.83-4.51); Lymphocyte % 11.3 % (19-41); Mean Corp Hgb Conc 30.7 g/dL (32-36); Mean Corpuscular Hgb 28.9 pg (27.0-32.0); Mean Corpuscular Volume 94.1 fL (80-94); Mean Platelet Vol. 10.5 fl (6.2-12.0); Monocyte# 1.24 X10^3/uL; Monocyte% 11.5 % (0-10); NRBC Flagged by Analyzer 0 % (0-5); Neutrophil # 7.61 X10^3/uL (2.7-7.7); Neutrophil % 70.7 % (47-70); Platelet Count 135 K/mm3 (150-450); RBC Distribution Width CV 19.3 % (11.6-14.6); RBC Distribution Width SD 64.5 fl (35.1-43.9); Red Blood Count 3.88 M/mm3 (4.6-6.2); White Blood Count 10.8 K/mm3 (4.4-11.0)
[2022-08-02 15:41] VITALS: BP 119/97; PULSE 74; RESP 20; O2SAT 96
[2022-08-02 16:06] LABS: BNP,B-Type NATRIURETIC PEPTIDE 57.6 pg/mL (0-100)
[2022-08-02 16:16] LABS: AST(SGOT) 29 U/L (15-37); Alanine Aminotransfer ALT/SGPT 16 U/L (16-61); Albumin, Serum 3.1 g/dL (3.2-5.0); Alkaline Phosphatase 88 U/L (45-117); Anion Gap 13 (5-15); BUN 76 mg/dL (7-18); BUN/Creat Ratio 4.8 RATIO (10-20); Bilirubin, Direct 0.24 mg/dL (0.00-0.30); Calcium,Total 9.2 mg/dL (8.5-10.1); Chloride 96 mmol/L (98-107); EST Glomerular Filtration Rate 3 mL/min (>60); Est Glom Filt Rate - Afr Amer 4 mL/min (>60); Estimated Creatinine Clearance 5.22 ml/min; Globulin 5.3 g/dL (2.2-4.2); Glucose 119 mg/dL (74-106); Potassium 4.3 mmol/L (3.5-5.1); Protein, Total 8.4 g/dL (6.4-8.2); Sodium Level 139 mmol/L (136-145); Troponin-I HS (w/2H Reflex) 56 pg/mL (3.0-78.0)
[2022-08-02 17:00] VITALS: BP 112/84
[2022-08-02 17:34] LABS: Reflex Troponin-HS? (from REC) Y
[2022-08-02 18:49] LABS: Reflex Lactate? Y
[2022-08-02 19:00] VITALS: RESP 16
[2022-08-02 19:09] LABS: Troponin-I HS 50 pg/mL (3.0-78.0)
[2022-08-02 20:34] LABS: Lactic Acid 1.8 mmol/L (0.4-1.9)
--- NOTE | 2022-08-02 20:47 | ED.RN ---
INITIATED TRANSPORT FOR PATIENT BACK TO [facility] AT 2048- ETA 2 HOURS
[2022-08-02 21:00] VITALS: RESP 20
== END 2022-08-02 22:12 | disposition home or self-care (01) ==
PROVIDERS: Emergency Provider Student in an Organized Health Care Education/Training Program; PCP Internal Medicine; Visit Provider Student in an Organized Health Care Education/Training Program
DX: R41.0 Disorientation, unspecified (principal); I13.2 Hypertensive heart and chronic kidney disease with heart failure and with stage 5 chronic kidney disease, or end stage renal disease; Z99.2 Dependence on renal dialysis; I50.32 Chronic diastolic (congestive) heart failure; E11.22 Type 2 diabetes mellitus with diabetic chronic kidney disease; N18.6 End stage renal disease; E78.5 Hyperlipidemia, unspecified; I25.10 Atherosclerotic heart disease of native coronary artery without angina pectoris
CPT/HCPCS: 36415; 70450; 71045; 80048; 80076; 82140; 83605; 83880; 84484; 85025; 85610; 87040; 87428; 93005; 99285; A4216

== ENCOUNTER 2022-08-06 12:48 | Inpatient (IN) | payer MEDICARE, MEDICAID, SELFPAY ==
[2022-08-06] VITALS (27 sets, daily range): BP systolic 65–157; BP diastolic 37–122; PULSE 56–94; RESP 11–23; TEMP 35.8–36.6; O2SAT 93–100; BMI 38.0
--- NOTE | 2022-08-06 13:09 | EDS_ITS ---
HPI HPI - Psych History of Present Illness Chief Complaint: Mental Health Detail of Chief Complaint: Abnormal behavior Informant: patient, EMS and SNF Narrative Narrative: Patient presents to the emergency department via EMS from extended care facility for evaluation of abnormal behavior. correction staff believe patient need psychiatric placement. Patient apparently was playing with his stool and not acting normally. Patient apparently was seen in the emergency department for 5 days ago for similar complaints. Patient denies any chest pain or abdominal pain. He denies urinary symptoms. Patient denies feeling suicidal or homicidal. [facility] Medical History Acute on chronic renal failure Ambulates with cane Benign prostatic hyperplasia Chronic diastolic (congestive) heart failure Chronic indwelling Barnes catheter CKD stage 5 due to type 2 diabetes mellitus Congestive heart failure (CHF) Diabetes Diabetes mellitus, type II Dialysis patient End-stage renal disease on hemodialysis Essential hypertension Falls frequently Barnes catheter in place Gout History of renal dialysis Hydronephrosis concurrent with and due to calculi of kidney and ureter Hyperlipidemia Hyperosmolar non-ketotic state in patient with type 2 diabetes mellitus ICD (implantable cardioverter-defibrillator) in place Iron deficiency anemia Kidney disease Left bundle branch block (LBBB) Morbid obesity Non-ischemic cardiomyopathy Non-smoker Nonsustained ventricular tachycardia Open wound RAQUEL (obstructive sleep apnea) Right foot drop Secondary hyperparathyroidism (of renal origin) Sleep apnea Venous ulcer of left lower extremity without varicose veins Walker as ambulation aid Wears glasses Home Medications allopurinol 300 mg tablet 150 mg PO DAILY GOUT 01/27/16 [History Last Taken 08/05/22] latanoprost 0.005 % eye drops 1 drp EACH EYE QHS GLAUCOMA 12/23/18 [History Last Taken 08/05/22] tamsulosin 0.4 mg capsule 0.4 mg PO QHS PROSTATE 06/21/19 [History Last Taken 08/01/22] carvedilol 25 mg tablet 37.5 mg PO BID HEART 02/27/21 [History Last Taken 08/05/22] sevelamer carbonate 800 mg tablet 1,600 mg PO TIDCM KIDNEY DISEASE 03/26/22 [History Last Taken 08/05/22] acetaminophen 325 mg tablet (Tylenol) 1,300 mg PO Q4H PRN Pain 08/06/22 [History Last Taken 08/04/22] aluminum-magnesium hydroxide 225 mg-200 mg/5 mL oral suspension 30 ml PO Q4H PRN Acid Reflux 08/06/22 [History Last Taken 07/31/22] ammonium lactate 12 % lotion 1 applic topical BID SEVERE DRY SKIN 08/06/22 [History Last Taken 08/06/22] aspirin 81 mg tablet,delayed release 81 mg PO DAILY HEART HEALTH 08/06/22 [History Last Taken 08/05/22] atorvastatin 80 mg tablet 80 mg PO QHS CHOLESTEROL 08/06/22 [History Last Taken 08/05/22] cinacalcet 60 mg tablet 60 mg PO MOTUWEFR SUPPLEMENT 08/06/22 [History Last Taken 08/05/22] mupirocin 2 % topical ointment 1 applic topical QHS WOUND HEALING 08/06/22 [History Last Taken 08/05/22] pollens extract 1 tab PO BID SUPPLEMENT 08/06/22 [History Last Taken 08/05/22] sitagliptin phosphate 25 mg tablet (Januvia) 25 mg PO DAILY 08/06/22 [History Last Taken 08/05/22] valsartan 40 mg tablet 40 mg PO BID BLOOD PRESSURE 08/06/22 [History Last Taken 08/06/22] vitamin B complex and vitamin C no.20-folic acid 1 mg capsule 1 cap PO DAILY SUPPLEMENT 08/06/22 [History Last Taken 08/05/22] Allergy/AdvReac Type Severity Reaction Status Date / Time aluminum Allergy PT UNSURE Verified 08/06/22 12:53 OF REACTION amoxicillin [From Augmentin] Allergy PT UNSURE Verified 08/06/22 12:53 OF REACTION clavulanic acid Allergy PT UNSURE Verified 08/06/22 12:53 [From Augmentin] OF REACTION Family History Father Hypertension Heart disease Diabetes Mother Diabetes Chronic kidney disease Hypertension Anemia Surgical History H/O skin graft History of tonsillectomy and adenoidectomy Hx of appendectomy Hx of tonsillectomy Presence of biventricular implantable cardioverter-defibrillator (ICD) (05/14/11) Social History household members: none Smoking Status: Never smoker alcohol intake: never substance use type: does not use caffeine: Yes ROS ROS ED Review of Systems ROS Unobtainable: other Constitutional Constitutional ED: Reports lethargy; Denies chills, fever(s), sweats or weight loss Eyes Eyes: Denies blurry vision, change in vision or diplopia ENT ENT ED: Denies rhinorrhea or sore throat Cardiovascular Cardiovascular: Denies chest pain, orthopnea or racing heartbeat Respiratory/Chest Respiratory/Chest: Denies cough, dyspnea, dyspnea on exertion, orthopnea or sputum Gastrointestinal Gastrointestinal: Denies abdominal pain, diarrhea, nausea or vomiting Genitourinary Genitourinary ED: Denies dysuria, hematuria or urinary frequency Musculoskeletal Musculoskeletal: Denies arthralgias, back pain, myalgias or neck pain Integumentary Denies abscess, Abrasions or rash Neurologic Neurologic: Denies headache(s) or weakness Psychiatric Psychiatric: Reports other Details: Abnormal behavior ; Denies anxiety, depression or suicidal thoughts Endocrine Endocrinology: Denies polydipsia, polyphagia or polyuria Hematologic/Lymphatic Hematologic/Lymphatic: Denies easy bleeding, easy bruising or lymphadenopathy Allergic/Immunologic Allergic/Immunologic ED: Denies mouth swelling, tongue swelling or urticaria EXAM Physical Exam Const Vital Signs: 08/06/22 12:49 08/06/22 14:03 08/06/22 14:32 Temperature 98 F Temperature Source Temporal Pulse Rate 56 L 86 Respiratory Rate 18 15 Blood Pressure 157/122 H 79/38 L 81/41 L Blood Pressure Mean 133 51 54 Pulse Ox 100 95 Oxygen Delivery Method Room Air Nasal Cannula Oxygen Flow Rate (L/min) 2 08/06/22 15:03 08/06/22 15:34 08/06/22 16:04 Temperature Temperature Source Pulse Rate 86 88 94 Respiratory Rate 18 13 19 H Blood Pressure 85/60 L 80/68 L 80/68 L Blood Pressure Mean 68 72 72 Pulse Ox 97 97 94 Oxygen Delivery Method Nasal Cannula Nasal Cannula Nasal Cannula Oxygen Flow Rate (L/min) 2 2 2 Positive well nourished and well developed General Appearance ED: well developed and NAD HEENT Reports TM's clear HEENT Narrative: Dry mucous membranes normocephalic and atraumatic; Negative for trauma or tenderness Tympanic Membrane ED: Yes TM's clear Eyes PERRL and EOMs intact bilaterally General Eye ED: Negative for pale conjunctiva or scleral icterus Neck no lymphadenopathy, supple and no JVD General: Negative for tenderness Chest Wall inspection of chest normal and palpation of chest normal Chest: Negative for tenderness Resp normal respiratory effort and clear to auscultation bilaterally Effort and Inspection: Negative for respiratory distress or pain with movement Auscultation: Negative for rhonchi, wheezes or diminished lung sounds Cardio regular rate, regular rhythm, S1 normal heart sound, S2 normal heart sound and no murmurs Peripheral Pulses: pulses 2+ throughout GI normal to inspection, nondistended, normoactive bowel sounds, soft to palpation, non-tender, non-distended and no masses Back/Spine no CVA tenderness and no thoracic nor lumbar tenderness Extremity normal to inspection General Extremety ED: Negative for edema General Extremity: Negative for edema Neuro oriented x3, CN's II-XII intact bilaterally, no sensory deficits noted and gait normal Sensorium / Orientation: awake, alert, oriented to person, oriented to place and oriented to time Motor Exam: strength 5/5 throughout and strength abnormal Psych mental status grossly normal Skin no rashes or lesions noted and no wounds MDM MDM MDM Narrative Medical decision making narrative: Established on arrival. Patient was given normal saline fluid bolus. Patient does have hypotension with systolic in the 80s and he tells me he normally runs low but cannot tell me how low. Patient not diaphoretic or tachycardic and otherwise mentating and answering questions appropriately. He is alert to person and place and the year and month. Patient did not know who his guide foreign tour was. Lab work-up shows a white count of 10.3, hemoglobin 11.4. Chemistries unremarkable other than his BUN is 93 and his creatinine is 18.5. Alcohol was less than 3. We did order a urine however this is pending as we change the Barnes bag that he has and he has not made any urine. I did not reCT his head as he had one 4 days ago that was unremarkable. Lactate was 1.5. At this point etiology of his mental status change and confusion unclear. I cannot clear him medically at this time and discussed with hospitalist to evaluate for admission. Once medically cleared may need crisis to evaluate for possible [facility] psych placement. Patient continues with low blood pressures therefore I ordered a CTA of the chest and abdomen to rule out catastrophic process such as ruptured aneurysm or dissection. Patient also had a cortisol level ordered and I ordered hydrocortisone 100 mg IV. Care of patient will be turned over to evening physician awaiting CT results and repeat evaluation by hospitalist to has also seen him in the emergency department. Lab Data Attestation: I reviewed the patient's lab results. Labs: Laboratory Results - last 24 hr 08/06/22 08/06/22 08/06/22 13:23 13:23 13:23 WBC 10.3 RBC 3.77 L Hgb 11.4 L Hct 35.7 L MCV 94.7 H MCH 30.2 MCHC 31.9 L RDW Std Deviation 66.4 H RDW Coeff of Jeffrey 19.8 H Plt Count 144 L MPV 10.3 Immature Gran % (Auto) 0.900 Neut % (Auto) 70.5 H Lymph % (Auto) 14.7 L Dunn % (Auto) 10.8 H Eos % (Auto) 2.5 Baso % (Auto) 0.6 Absolute Neuts (auto) 7.3 Absolute Lymphs (auto) 1.51 Nucleated RBC % 0.3 Differential Comment SCANNED Sodium 142 Potassium 5.0 Chloride 101 Carbon Dioxide 29.0 Anion Gap 12 BUN 93 H Creatinine 18.50 H* Estim Creat Clear Calc 4.35 Est GFR (MDRD) Af Amer 3 L Est GFR (MDRD) Non-Af 3 L BUN/Creatinine Ratio 5.0 L Glucose 130 H Lactic Acid Calcium 8.9 Ethyl Alcohol < 3.0 08/06/22 14:40 WBC RBC Hgb Hct MCV MCH MCHC RDW Std Deviation RDW Coeff of Jeffrey Plt Count MPV Immature Gran % (Auto) Neut % (Auto) Lymph % (Auto) Dunn % (Auto) Eos % (Auto) Baso % (Auto) Absolute Neuts (auto) Absolute Lymphs (auto) Nucleated RBC % Differential Comment Sodium Potassium Chloride Carbon Dioxide Anion Gap BUN Creatinine Estim Creat Clear Calc Est GFR (MDRD) Af Amer Est GFR (MDRD) Non-Af BUN/Creatinine Ratio Glucose Lactic Acid 1.5 Calcium Ethyl Alcohol Radiography Diagnostic Testing: Clinical Impression(s) from Imaging Studies Chest X-Ray 08/06/22 15:25 IMPRESSION: Borderline cardiomegaly. Electronically Signed: Leonard Nunez MD at 15:35 EST , Discharge Plan Dx/Rx/DC Orders Clinical Impression: Altered mental status, Acute hypotension, Acute uremia, History of chronic renal failure Disposition Disposition: [facility]
[2022-08-06 13:43] LABS: Absolute Lymphocyte Count 1.51 X10^3/uL (0.83-4.51); Absolute Neutrophil Count 7.3 X10^3/uL (2.0-7.7); Basophil# 0.06 X10^3/uL; Basophil% 0.6 % (0-1); Eosinophil# 0.26 X10^3/uL; Eosinophils% 2.5 % (0-5); Hematocrit 35.7 % (40-54); Hemoglobin 11.4 g/dL (13.0-16.5); Lymphocyte # 1.51 X10^3/ul (0.83-4.51); Lymphocyte % 14.7 % (19-41); Mean Corp Hgb Conc 31.9 g/dL (32-36); Mean Corpuscular Hgb 30.2 pg (27.0-32.0); Mean Corpuscular Volume 94.7 fL (80-94); Mean Platelet Vol. 10.3 fl (6.2-12.0); Monocyte# 1.11 X10^3/uL; Monocyte% 10.8 % (0-10); NRBC Flagged by Analyzer 0.3 % (0-5); Neutrophil # 7.27 X10^3/uL (2.7-7.7); Neutrophil % 70.5 % (47-70); POSITIVE MORPHOLOGY YES; Platelet Count 144 K/mm3 (150-450); RBC Distribution Width CV 19.8 % (11.6-14.6); RBC Distribution Width SD 66.4 fl (35.1-43.9); Red Blood Count 3.77 M/mm3 (4.6-6.2); White Blood Count 10.3 K/mm3 (4.4-11.0)
[2022-08-06 13:46] LABS: Alcohol, Blood (Medical)-Serum < 3.0 mg/dL
[2022-08-06 13:49] LABS: Differential Indicated SCAN CRITERIA MET
[2022-08-06 13:53] LABS: Anion Gap 12 (5-15); BUN 93 mg/dL (7-18); Calcium,Total 8.9 mg/dL (8.5-10.1); Chloride 101 mmol/L (98-107); EST Glomerular Filtration Rate 3 mL/min (>60); Est Glom Filt Rate - Afr Amer 3 mL/min (>60); Estimated Creatinine Clearance 4.35 ml/min; Glucose 130 mg/dL (74-106); Sodium Level 142 mmol/L (136-145)
--- NOTE | 2022-08-06 13:55 | ED.RN ---
PT'S BP 79/38, DR OLIVER NOTIFIED. 1L NS BOLUS ORDERED. PT AMES BAG CHANGED AT THIS TIME, BROWN-MILKY URINE NOTED IN PREVIOUS BAG.
[2022-08-06] MEDS: 0.9% Normal Saline 1,000 ML 1000 ML IV ×2 (13:59→16:24)
[2022-08-06 14:28] LABS: Differential Comment SCANNED
--- NOTE | 2022-08-06 14:28 | ED.RN ---
PER KEMI AT [facility], PT'S LAST DYALISIS WAS THURSDAY. PT SUPPOSED TO GET DIAYLSIS [facility], REFUSED YESTERDAY AND MULTIPLE TIMES PRIOR TO THAT. PER KEMI, CATHETER LAST CHANGED 07/02. DR OLIVER MADE AWARE.
[2022-08-06] MEDS: 0.9% Normal Saline 1,000 ML 150 ML IV (15:06)
--- NOTE | 2022-08-06 15:08 | ED.RN ---
BP CHECKED MANUALLY, 86/58
--- NOTE | 2022-08-06 15:25 | RAD_ITS ---
STUDY: X-RAY CHEST REASON FOR EXAM: Male, 61 years old. Hypotension TECHNIQUE: Single AP portable view of the chest. COMPARISON: Comparison is made with prior study dated 08/02/2022. FINDINGS: EKG electrodes are seen. The lungs are clear and expanded. There is no demonstrated pleural abnormality. A left-sided dual-chamber pacemaker is seen. Borderline cardiomegaly. Normal mediastinum and andi. Normal visualized pulmonary arteries. Normal visualized aortic arch and descending thoracic aorta. There are degenerative changes of the visualized thoracic spine. Normal visualized ribs, clavicles, and shoulders. There is no demonstrated abnormality of the visualized soft tissue structures of the upper abdomen. RAD/Chest 1 View (Portable) IMPRESSION: Borderline cardiomegaly. Electronically Signed: Leonard Nunez MD at 15:35 EST ,
[2022-08-06 15:33] LABS: Lactic Acid 1.5 mmol/L (0.4-1.9)
--- NOTE | 2022-08-06 15:36 | ED.RN ---
BOTH BLOOD CULTURES RECEIVED PER CIARRA IN LAB.
--- NOTE | 2022-08-06 15:48 | NURSING ---
DR KAREN OLIVER
--- NOTE | 2022-08-06 15:55 | EKG12_ITS ---
Test Reason : GENERAL Blood Pressure : / mmHG Vent. Rate : 095 BPM Atrial Rate : 081 BPM P-R Int : 000 ms QRS Dur : 172 ms QT Int : 488 ms P-R-T Axes : 000 247 109 degrees QTc Int : 613 ms Ventricular-paced rhythm Biventricular pacemaker detected Abnormal ECG Confirmed by ERNA ARCHER, ANDRES ([id number]), editorial specialist VALENTINA DONOVAN ([id number]) on 08/07/2022 8:31:03 AM Referred By: Confirmed By:ANDRES UMANZOR MD
--- NOTE | 2022-08-06 16:11 | HP.PCM.HOS_ITS ---
HPI - General General Date of Admission: 08/06/22 Date of Service: 08/06/22 Chief Complaint: bizarre behavior HPI Narrative JUVENCIO QUINTERO, is a 61 M who presents from his halfway with bizarre behavior. Reportedly patient was playing with his stool as well. Presented to the emergency room and had a chest x-ray, head CT that were unremarkable. CBC was unremarkable. BMP showed a creatinine of 18.5. Patient is end-stage renal disease on dialysis though he does not know his last hemodialysis.. Patient can only tell me that he feels sick. Does state he also has a sore throat but does not elaborate any further on any other sick feelings. Patient received 1 L of IV fluids and then the hospitalist service was contacted for admission. [facility] Medical History Acute on chronic renal failure Ambulates with cane Benign prostatic hyperplasia Chronic diastolic (congestive) heart failure Chronic indwelling Barnes catheter CKD stage 5 due to type 2 diabetes mellitus Congestive heart failure (CHF) Diabetes Diabetes mellitus, type II Dialysis patient End-stage renal disease on hemodialysis Essential hypertension Falls frequently Barnes catheter in place Gout History of renal dialysis Hydronephrosis concurrent with and due to calculi of kidney and ureter Hyperlipidemia Hyperosmolar non-ketotic state in patient with type 2 diabetes mellitus ICD (implantable cardioverter-defibrillator) in place Iron deficiency anemia Kidney disease Left bundle branch block (LBBB) Morbid obesity Non-ischemic cardiomyopathy Non-smoker Nonsustained ventricular tachycardia Open wound RAQUEL (obstructive sleep apnea) Right foot drop Secondary hyperparathyroidism (of renal origin) Sleep apnea Venous ulcer of left lower extremity without varicose veins Walker as ambulation aid Wears glasses Home Medications allopurinol 300 mg tablet 150 mg PO DAILY GOUT 01/27/16 [History Last Taken 08/05/22] latanoprost 0.005 % eye drops 1 drp EACH EYE QHS GLAUCOMA 12/23/18 [History Last Taken 08/05/22] tamsulosin 0.4 mg capsule 0.4 mg PO QHS PROSTATE 06/21/19 [History Last Taken 08/01/22] carvedilol 25 mg tablet 37.5 mg PO BID HEART 02/27/21 [History Last Taken 08/05/22] sevelamer carbonate 800 mg tablet 1,600 mg PO TIDCM KIDNEY DISEASE 03/26/22 [History Last Taken 08/05/22] acetaminophen 325 mg tablet (Tylenol) 1,300 mg PO Q4H PRN Pain 08/06/22 [History Last Taken 08/04/22] aluminum-magnesium hydroxide 225 mg-200 mg/5 mL oral suspension 30 ml PO Q4H PRN Acid Reflux 08/06/22 [History Last Taken 07/31/22] ammonium lactate 12 % lotion 1 applic topical BID SEVERE DRY SKIN 08/06/22 [History Last Taken 08/06/22] aspirin 81 mg tablet,delayed release 81 mg PO DAILY HEART HEALTH 08/06/22 [History Last Taken 08/05/22] atorvastatin 80 mg tablet 80 mg PO QHS CHOLESTEROL 08/06/22 [History Last Taken 08/05/22] cinacalcet 60 mg tablet 60 mg PO MOTUWEFR SUPPLEMENT 08/06/22 [History Last Taken 08/05/22] mupirocin 2 % topical ointment 1 applic topical QHS WOUND HEALING 08/06/22 [History Last Taken 08/05/22] pollens extract 1 tab PO BID SUPPLEMENT 08/06/22 [History Last Taken 08/05/22] sitagliptin phosphate 25 mg tablet (Januvia) 25 mg PO DAILY 08/06/22 [History Last Taken 08/05/22] valsartan 40 mg tablet 40 mg PO BID BLOOD PRESSURE 08/06/22 [History Last Taken 08/06/22] vitamin B complex and vitamin C no.20-folic acid 1 mg capsule 1 cap PO DAILY SUPPLEMENT 08/06/22 [History Last Taken 08/05/22] Allergy/AdvReac Type Severity Reaction Status Date / Time aluminum Allergy PT UNSURE Verified 08/06/22 12:53 OF REACTION amoxicillin [From Augmentin] Allergy PT UNSURE Verified 08/06/22 12:53 OF REACTION clavulanic acid Allergy PT UNSURE Verified 08/06/22 12:53 [From Augmentin] OF REACTION Family History Father Hypertension Heart disease Diabetes Mother Diabetes Chronic kidney disease Hypertension Anemia Surgical History H/O skin graft History of tonsillectomy and adenoidectomy Hx of appendectomy Hx of tonsillectomy Presence of biventricular implantable cardioverter-defibrillator (ICD) (05/14/11) Social History household members: none Smoking Status: Never smoker alcohol intake: never substance use type: does not use caffeine: Yes ROS ROS Narrative Denies any diarrhea or any dysuria. Patient does make urine and has a catheter in place. Denies any rashes or bruising. All review of systems were negative except as mentioned above in the history of present illness and the other review of systems. Vital Signs Vital Signs Vital Signs: 08/06/22 12:49 08/06/22 14:03 08/06/22 14:32 Temperature 36.6 C Temperature Source Temporal Pulse Rate 56 L 86 Respiratory Rate 18 15 Blood Pressure 157/122 H 79/38 L 81/41 L Blood Pressure Mean 133 51 54 Pulse Ox 100 95 Oxygen Delivery Method Room Air Nasal Cannula Oxygen Flow Rate (L/min) 2 08/06/22 15:03 08/06/22 15:34 08/06/22 16:04 Temperature Temperature Source Pulse Rate 86 88 94 Respiratory Rate 18 13 19 H Blood Pressure 85/60 L 80/68 L 80/68 L Blood Pressure Mean 68 72 72 Pulse Ox 97 97 94 Oxygen Delivery Method Nasal Cannula Nasal Cannula Nasal Cannula Oxygen Flow Rate (L/min) 2 2 2 Weight Weight: 123.7 kg Body Mass Index (BMI) 38.0 Physical Exam Const alert and oriented x3 Constitutional Narrative: Confused and asked several times what time it is when he clearly sees o'clock is 4:00. Does have some diffuse myoclonic jerking. HEENT HEENT Narrative: Does have a large mass on his head without any erythema or induration. Resp normal respiratory effort, no retractions, no use of accessory muscles and clear to auscultation bilaterally Cardio regular rate, regular rhythm, S1 normal heart sound and S2 normal heart sound GI normal to inspection, nondistended, normoactive bowel sounds, soft to palpation, non-tender and non-distended Extremity normal to inspection and full ROM Neuro oriented x3 and moves all extremities Sensorium / Orientation: awake Psych affect normal Results Lab / Micro Data Result Diagrams: 08/06/22 13:23 08/06/22 13:23 Labs: Laboratory Results - last 24 hr 12/21/22 13:23: WBC 10.3, RBC 3.77 L, Hgb 11.4 L, Hct 35.7 L, MCV 94.7 H, MCH 30.2, MCHC 31.9 L, RDW Std Deviation 66.4 H, RDW Coeff of Jeffrey 19.8 H, Plt Count 144 L, MPV 10.3, Immature Gran % (Auto) 0.900, Neut % (Auto) 70.5 H, Lymph % (Auto) 14.7 L, Whitman % (Auto) 10.8 H, Eos % (Auto) 2.5, Baso % (Auto) 0.6, Absolute Neuts (auto) 7.3, Absolute Lymphs (auto) 1.51, Nucleated RBC % 0.3, Differential Comment SCANNED 08/06/22 13:23: Sodium 142, Potassium 5.0, Chloride 101, Carbon Dioxide 29.0, Anion Gap 12, BUN 93 H, Creatinine 18.50 H*, Estim Creat Clear Calc 4.35, Est GFR (MDRD) Af Amer 3 L, Est GFR (MDRD) Non-Af 3 L, BUN/Creatinine Ratio 5.0 L, Glucose 130 H, Calcium 8.9 08/06/22 13:23: Ethyl Alcohol < 3.0 08/06/22 14:40: Lactic Acid 1.5 Micro: Microbiology 08/06/22 15:10 Nasal Secretion SARS-CoV-2 & FLU Antigen (Rapid) - Final Radiology Impression Chest X-Ray 08/06/22 15:25 IMPRESSION: Borderline cardiomegaly. Electronically Signed: Leonard Nunez MD at 15:35 EST , Assessment & Plan Assessment/Plan (1) Acute hypotension: PLAN: Ongoing. Pulses thready. Patient received only 1 L of IV fluids in the emergency room. Discussed with the emergency room physician as I had been told that the blood pressure was good for saw the patient but patient's trend of blood pressures as continually showed it to be very low and when I was in the room patient's blood pressure was 67/40. Initial plan 1 spoke with emergency room physician's for the patient to go to the progressive care unit but its unclear at this time if that would be appropriate. I spoke with the emergency room physician he said I do not know what else to do. I am therefore assuming control of this patient while the patient remains in the ICU until I get further clarification if the patient would require going to the intensive care unit or not. I instructed the ED nurse to give the patient another liter of IV fluids and I will reevaluate. If patient persists to have hypotension, he will require going to the intensive care unit and may require pressor support. I followed up after patient received additional IV fluids and his blood pressure improved. Patient be made PCU status. Patient did receive a dose of hydrocortisone in case patient was adrenally insufficient. Patient's random cortisol was 28 which is elevated. Patient is not adrenally insufficient and will not continue with the steroids at this time. Discussed with nurse at [facility], patient blood pressure typically runs low around 110 systolic but occasionally dips down into the 90s systolic. Hold the carvedilol, which is a rather large dose at 37.5 twice daily, and valsartan. When blood pressure allows, would recommend reinitiating carvedilol at a lower dose. Also hold the tamsulosin for now. (2) Acute uremia: PLAN: Patient is alert and oriented, however, patient clearly is having myoclonic activity. Patient's creatinine is 18.5. Discussed with a nurse at [facility] and patient did have dialysis on the but it was incomplete dialysis. Patient was throwing for it and then they stopped it prematurely. This, however, is not a one-time occurrence and occurs very regularly. Patient is alert and oriented but has been having myoclonus. Consult nephrology to continue with dialysis. Continue with Cinalcalcet, sevelamer (3) Altered mental status: QUALIFIERS: Altered mental status type: unspecified Qualified Code(s): R41.82 - Altered mental status, unspecified PLAN: Discussed with the nurse at [facility] see patient has been having behavioral issues while at the facility. Patient will throw himself onto the ground and today was spreading feces on the wall. From the nurse I spoke with his seem to though as though this was intentional. This appears to be more of a chronic process but the patient smearing feces on the wall today was a new level of Will consult case management to see if a crisis eval and a psychiatric unit would be appropriate for this patient when he is medically ready. (4) UTI (urinary tract infection): PLAN: Patient received aztreonam in the emergency room. Patient does have a history of Proteus mirabilis but is been sensitive to c eftriaxone in the past and will continue with ceftriaxone for now. Patient has an allergy to amoxicillin Follow-up cultures and adjust antibiotics accordingly. PLAN: Plan Chronic conditions * Diabetes mellitus type 2: Continue with Sitagliptin add sliding scale insulin * Hyperlipidemia: Continue with statin * History of CHF: Appears compensated this time. Hold carvedilol and valsartan for now given hypotension * CAD: Stable. Continue with aspirin and atorvastatin. * Hypertension: Carvedilol and valsartan held on account of the hypotension * Morbid obesity: Complicates care and overall recovery. Patient would be a poor candidate for bariatric evaluation given concerns with compliance * Anemia of chronic disease: Stable. Monitor. No need for transfusion at this time. VTE prophylaxis with subcu heparin CODE STATUS from the halfway forms. Patient is full code. Charges/Coding Visit Charges Inpatient E&M: 46554 Init Hosp L3
--- NOTE | 2022-08-06 16:14 | CT_ITS ---
We are attempting to reach an attending provider to discuss findings. An addendum with communication details will be sent when the communication is complete. EXAM: CT ANGIOGRAPHY CHEST, ABDOMEN AND PELVIS WITH INTRAVENOUS CONTRAST CLINICAL INDICATION: hypotension TECHNIQUE: Helically acquired angiography images were obtained of the chest, abdomen and pelvis with intravenous contrast. This CT exam was performed using one or more of the following dose reduction techniques: automated exposure control, adjustment of the mA and/or kV according to patient size, and/or use of iterative reconstruction technique. This report was created using [employer] report generation technology. MIP reconstructed images were created and reviewed. CONTRAST: IV 100mL [id number] RADIATION DOSE: CTDIvol = 20.33 mGy, DLP = 1599.96 mGy-cm COMPARISON: None. FINDINGS: VASCULATURE: AORTA: There is atherosclerotic calcification of the aortic arch with tortuosity and elongation of the aortic arch and descending thoracic aorta. There are calcifications of the abdominal aorta. This is consistent for atherosclerotic disease. There is no abdominal aortic aneurysm. No dissection. PULMONARY ARTERIES: No demonstrated pulmonary embolism or arterial dissection. GREAT VESSELS OF AORTIC ARCH: Unremarkable. Normal in caliber. No dissection. CELIAC TRUNK AND MESENTERIC ARTERIES: Celiac and superior mesenteric arteries: There is mild diffuse narrowing. Inferior mesenteric artery: There is mild diffuse narrowing. No dissection. RENAL ARTERIES: Right renal artery(arteries): There is severe diffuse narrowing. Left renal artery(arteries): There is severe diffuse narrowing. No dissection. ILIAC ARTERIES: Right common iliac artery: There is mild diffuse narrowing. Right external iliac artery: There is mild diffuse narrowing. Right internal iliac artery: There is mild diffuse narrowing. Left common iliac artery: There is mild diffuse narrowing. Left external iliac artery: There is mild diffuse narrowing. Left internal iliac artery: There is mild diffuse narrowing. No dissection. CHEST: LUNGS AND PLEURAL SPACES: There is patchy bilateral groundglass infiltrate suggesting bilateral pneumonia. No mass. No pleural effusion or thickening. HEART: There are calcifications of the coronary arteries. Heart size is normal. No pericardial effusion. MEDIASTINUM: Unremarkable. No mediastinal or hilar adenopathy. Esophagus is unremarkable. No hiatal hernia. THYROID: Unremarkable. No thyroid lesions. ABDOMEN: LIVER: Normal liver. GALLBLADDER AND BILE DUCTS: Normal gallbladder and extrahepatic biliary system. No calcified gallstones. No gallbladder distention or wall edema. No intra- or extrahepatic biliary ductal dilation. PANCREAS: Normal pancreas. No focal cystic or solid mass. SPLEEN: Normal spleen. ADRENALS: Normal bilateral adrenal glands. KIDNEYS AND URETERS: Bilateral hydronephroureter. Bilateral renal staghorn calculi. There is moderate cortical atrophy of the right kidney, consistent with chronic medical renal disease. There are hypodensities in the right kidney. These are consistent for cysts. No follow up required. There are hypodensities in the left kidney. These are consistent for cysts. No follow up required. There is moderate cortical atrophy of the left kidney, consistent with chronic medical renal disease. STOMACH AND BOWEL: Normal visualized stomach. Normal small intestine. Stool throughout the colon. No stomach or bowel distention. No focal inflammatory change. PELVIS: APPENDIX: There is non-visualization of the appendix. BLADDER: Urinary bladder wall has wall thickening. This can be related to a partially contractile state. However, a cystitis is not excluded. Urinalysis should be performed in an effort to exclude cystitis. Obstructing ureteral stone was not visualized. Air in the urinary bladder. This is likely iatrogenic. REPRODUCTIVE: Fluid balloon is inflated within the prostatic urethra. CHEST, ABDOMEN and PELVIS: INTRAPERITONEAL SPACE: Unremarkable. No ascites or other fluid collection. No free air. BONES/JOINTS: There are degenerative changes of the shoulders. There are multi-level degenerative changes of the thoracic spine. No suspicious lytic or blastic abnormality. SOFT TISSUES: There is an umbilical hernia containing fat. LYMPH NODES: Unremarkable. No enlarged lymph nodes. TUBES, LINES AND DEVICES: Left-sided pacemaker battery pack. OTHER FINDINGS: Critical finding called and case discussed. CT/CTA Chst, Abd, Pel W and/or WO IMPRESSION: 1. No demonstrated pulmonary embolism or arterial dissection. 2. There is patchy bilateral groundglass infiltrate suggesting bilateral pneumonia. 3. Bilateral hydronephroureter. 4. Bilateral renal staghorn calculi. 5. Urinary bladder wall has wall thickening. This can be related to a partially contractile state. However, a cystitis is not excluded. Urinalysis should be performed in an effort to exclude cystitis. 6. Fluid balloon is inflated within the prostatic urethra. Electronically Signed: Giancarlo Sun MD at 17:12 EST ,
[2022-08-06 17:04] LABS: Troponin-I HS 48 pg/mL (3.0-78.0)
[2022-08-06] MEDS: Hydrocortisone Sod Succinate 100 MG/2 ML Vial IV (17:30)
[2022-08-06 17:32] LABS: Mucous, Urine 0 SEEN /hpf (<or=2+); Red Blood Cells-Urine 0 SEEN /hpf (0-5); Squamous Epithelial Cells - UA 0 SEEN /hpf (0-5)
--- NOTE | 2022-08-06 17:35 | ED.RN ---
ATTEMPTED TO FLUSH CATHETER WITH NO SUCCESS. OLD CATHETER REMOVED AND NEW COUDE CATHETER PLACE, CREAM URINE DRAINING
[2022-08-06 17:36] LABS: Glucose, Dipstick Normal (Normal); Ketone-Dipstick 15 mg/dl (Negative); Leukocyte Esterase-Dipstick 500 /ul (Negative); Nitrite-Dipstick Negative (Negative); Occult Blood-Urine 250 /ul (Negative); Protein-Dipstick 500 mg/dl (Negative); Urine Bilirubin Dipstick Negative (Negative); Urine Clarity Turbid (Clear); Urine Urobilinogen Normal (Normal)
[2022-08-06 17:54] LABS: Color, Urine SEE COMMENT BELOW (Yellow)
[2022-08-06 17:57] LABS: White Blood Cells >100 SEEN /hpf (0-5)
[2022-08-06 17:58] LABS: Bacteria 4+ /hpf (None Seen)
[2022-08-06 18:02] LABS: Amphetamine Urine VISTA NEGATIVE (<1000 ng/mL); Barbiturate Urine VISTA NEGATIVE (< 200 ng/mL); Benzodiazepine Urine VISTA NEGATIVE (< 200 ng/mL); Cocaine Urine VISTA NEGATIVE (< 300 ng/mL); Ecstacy Urine VISTA NEGATIVE (< 500 ng/mL); Methadone Urine VISTA NEGATIVE (< 300 ng/mL); PCP Urine VISTA NEGATIVE (< 25 ng/mL); THC Urine VISTA NEGATIVE (< 50 ng/mL); Vista UDS pH Range 5
[2022-08-06] MEDS: Mupirocin Ointment 22gm Tube 1 APPLIC TOPICAL (21:10)
[2022-08-06] MEDS: Heparin Injection (Vial) 5,000 UNIT/ML VIAL 5000 UNIT SC (21:10)
[2022-08-06] MEDS: Ammonium Lactate 225 gm Bottle 1 APPLIC TOPICAL (21:10)
[2022-08-06] MEDS: Latanoprost 0.005% 1 Bottle 1 DRP EACH EYE (21:11)
[2022-08-06 22:31] LABS: Bedside Glucose 109 mg/dL (74-106)
[2022-08-07] VITALS (71 sets, daily range): BP systolic 54–120; BP diastolic 32–93; PULSE 63–94; RESP 12–25; TEMP 35.9–36.6; O2SAT 90–100
[2022-08-07 04:17] LABS: Absolute Lymphocyte Count 0.71 X10^3/uL (0.83-4.51); Absolute Neutrophil Count 7.3 X10^3/uL (2.0-7.7); Basophil# 0.03 X10^3/uL; Basophil% 0.3 % (0-1); Eosinophil# 0.01 X10^3/uL; Eosinophils% 0.1 % (0-5); Hematocrit 33.2 % (40-54); Hemoglobin 10.2 g/dL (13.0-16.5); Lymphocyte # 0.71 X10^3/ul (0.83-4.51); Lymphocyte % 8.2 % (19-41); Mean Corp Hgb Conc 30.7 g/dL (32-36); Mean Corpuscular Hgb 30.3 pg (27.0-32.0); Mean Corpuscular Volume 98.5 fL (80-94); Mean Platelet Vol. 9.9 fl (6.2-12.0); Monocyte# 0.51 X10^3/uL; Monocyte% 5.9 % (0-10); NRBC Flagged by Analyzer 0 % (0-5); Neutrophil # 7.28 X10^3/uL (2.7-7.7); Neutrophil % 84.2 % (47-70); POSITIVE MORPHOLOGY YES; Platelet Count 107 K/mm3 (150-450); RBC Distribution Width CV 19.4 % (11.6-14.6); Red Blood Count 3.37 M/mm3 (4.6-6.2); White Blood Count 8.7 K/mm3 (4.4-11.0)
[2022-08-07 04:38] LABS: Anisocytosis 2+; Differential Comment SCANNED; Differential Indicated SCAN CRITERIA MET; Macrocytosis 1+; Microcytosis 1+
[2022-08-07 04:46] LABS: ALB/GLOB Ratio 0.4 RATIO (0.9-2.4); AST(SGOT) 21 U/L (15-37); Alanine Aminotransfer ALT/SGPT 9 U/L (16-61); Albumin, Serum 2.2 g/dL (3.2-5.0); Alkaline Phosphatase 79 U/L (45-117); Anion Gap 13 (5-15); BUN 94 mg/dL (7-18); BUN/Creat Ratio 5.4 RATIO (10-20); Calcium,Total 8.1 mg/dL (8.5-10.1); Chloride 108 mmol/L (98-107); EST Glomerular Filtration Rate 3 mL/min (>60); Est Glom Filt Rate - Afr Amer 4 mL/min (>60); Estimated Creatinine Clearance 4.63 ml/min; Globulin 4.9 g/dL (2.2-4.2); Glucose 149 mg/dL (74-106); Potassium 4.7 mmol/L (3.5-5.1); Protein, Total 7.1 g/dL (6.4-8.2); Sodium Level 143 mmol/L (136-145)
--- NOTE | 2022-08-07 07:02 | PN.HOSP_ITS ---
Subjective Subjective Follow-up for septic shock on Levophed drip. Patient BP is low. On IV Levophed. Barnes catheter tube shows thick purulent urine. Patient on dialysis. Objective Data Objective Data Vital Signs: Vital Signs Temp Pulse Resp BP Pulse Ox O2 Del Method O2 Flow Rate 96.8 F L 78 14 120/80 97 Bi-pap 6 08/07/22 02:00 08/07/22 05:00 08/07/22 05:00 08/07/22 05:00 08/07/22 05:00 08/07/22 05:00 08/07/22 04:00 FiO2 30 08/07/22 04:25 Oxygen Flow Rate (L/min) 6 Oxygen Delivery Method Bi-pap Weight: 273 lb 13.026 oz Body Mass Index (BMI) 38.0 Intake & Output: Intake and Output for Last 24 Hours 08/05/22 08/06/22 08/07/22 23:59 23:59 23:59 Intake Total 2642.87 / 2647.57 98.7 / 98.7 Output Total 450 / 450 50 / 50 Balance 2192.87 / 2197.57 48.7 / 48.7 Lab / Micro Data Result Diagrams: 08/07/22 04:00 08/07/22 04:00 Labs: Laboratory Results - last 24 hr 08/06/22 13:23: WBC 10.3, RBC 3.77 L, Hgb 11.4 L, Hct 35.7 L, MCV 94.7 H, MCH 30.2, MCHC 31.9 L, RDW Std Deviation 66.4 H, RDW Coeff of Jeffrey 19.8 H, Plt Count 144 L, MPV 10.3, Immature Gran % (Auto) 0.900, Neut % (Auto) 70.5 H, Lymph % (Auto) 14.7 L, Frederick % (Auto) 10.8 H, Eos % (Auto) 2.5, Baso % (Auto) 0.6, Absolute Neuts (auto) 7.3, Absolute Lymphs (auto) 1.51, Nucleated RBC % 0.3, Differential Comment SCANNED 08/06/22 13:23: Sodium 142, Potassium 5.0, Chloride 101, Carbon Dioxide 29.0, Anion Gap 12, BUN 93 H, Creatinine 18.50 H*, Estim Creat Clear Calc 4.35, Est GFR (MDRD) Af Amer 3 L, Est GFR (MDRD) Non-Af 3 L, BUN/Creatinine Ratio 5.0 L, Glucose 130 H, Calcium 8.9 08/06/22 13:23: Ethyl Alcohol < 3.0 08/06/22 13:23: Troponin I High Sens 48 08/06/22 14:40: Lactic Acid 1.5 08/06/22 16:23: Cortisol 28.00 H 08/06/22 17:25: Urine Opiates Screen NEGATIVE, Urine Methadone Screen NEGATIVE, Ur Barbiturates Screen NEGATIVE, Ur Phencyclidine Scrn NEGATIVE, Ur Amphetamines Screen NEGATIVE, MDMA (Ecstasy) Screen NEGATIVE, U Benzodiazepines Scrn NEGATIVE, Urine Cocaine Screen NEGATIVE, U Cannabinoids Screen NEGATIVE, Ur Drug Screen Comment 08/06/22 17:25: Urine Color SEE COMMENT BELOW, Urine Clarity Turbid, Urine pH 7.0, Ur Specific [place] 1.020, Urine Protein 500 H, Urine Glucose (UA) Normal, Urine Ketones 15 H, Urine Occult Blood 250 H, Urine Nitrite Negative, Urine Bilirubin Negative, Urine Urobilinogen Normal, Ur Leukocyte Esterase 500 H, Urine RBC 0 SEEN, Urine WBC >100 SEEN, Ur Squamous Epith Cells 0 SEEN, Urine Bacteria 4+, Urine Mucus 0 SEEN 08/06/22 22:12: POC Glucose 109 H 08/07/22 04:00: WBC 8.7, RBC 3.37 L, Hgb 10.2 L, Hct 33.2 L, MCV 98.5 H, MCH 30.3, MCHC 30.7 L, RDW Std Deviation 69.0 H, RDW Coeff of Jeffrey 19.4 H, Plt Count 107 L, MPV 9.9, Immature Gran % (Auto) 1.300 H, Neut % (Auto) 84.2 H, Lymph % (Auto) 8.2 L, Frederick % (Auto) 5.9, Eos % (Auto) 0.1, Baso % (Auto) 0.3, Absolute Neuts (auto) 7.3, Absolute Lymphs (auto) 0.71 L, Nucleated RBC % 0, Differential Comment SCANNED, Anisocytosis 2+, Microcytosis 1+, Macrocytosis 1+ 08/07/22 04:00: Sodium 143, Potassium 4.7, Chloride 108 H, Carbon Dioxide 22.0, Anion Gap 13, BUN 94 H, Creatinine 17.40 H*, Estim Creat Clear Calc 4.63, Est GFR (MDRD) Af Amer 4 L, Est GFR (MDRD) Non-Af 3 L, BUN/Creatinine Ratio 5.4 L, Glucose 149 H, Calcium 8.1 L, Total Bilirubin 0.40, AST 21, ALT 9 L, Alkaline Phosphatase 79, Total Protein 7.1, Albumin 2.2 L, Globulin 4.9 H, Albumin/Globulin Ratio 0.4 L Micro: Microbiology 08/06/22 15:10 Nasal Secretion SARS-CoV-2 & FLU Antigen (Rapid) - Final Radiography Diagnostic Testing: Radiology Impression Chest X-Ray 08/06/22 15:25 IMPRESSION: Borderline cardiomegaly. Electronically Signed: Leonard Nunez MD at 15:35 EST , Chest/Abdomen/Pelvis CTA 08/06/22 16:14 IMPRESSION: 1. No demonstrated pulmonary embolism or arterial dissection. 2. There is patchy bilateral groundglass infiltrate suggesting bilateral pneumonia. 3. Bilateral hydronephroureter. 4. Bilateral renal staghorn calculi. 5. Urinary bladder wall has wall thickening. This can be related to a partially contractile state. However, a cystitis is not excluded. Urinalysis should be performed in an effort to exclude cystitis. 6. Fluid balloon is inflated within the prostatic urethra. Electronically Signed: Giancarlo Sun MD at 17:12 EST , ADDENDUM: 08/06/22 1725 IMPRESSION: 1. No demonstrated pulmonary embolism or arterial dissection. 2. There is patchy bilateral groundglass infiltrate suggesting bilateral pneumonia. 3. Bilateral hydronephroureter. 4. Bilateral renal staghorn calculi. 5. Urinary bladder wall has wall thickening. This can be related to a partially contractile state. However, a cystitis is not excluded. Urinalysis should be performed in an effort to exclude cystitis. 6. Fluid balloon is inflated within the prostatic urethra. N.B. : The above Results were Read Back by Giancarlo Sun MD to Dr. Tanya MD, and understanding confirmed on 08/06/2022 17:18:50 (ET). Electronically Signed: Giancarlo Sun MD at 17:12 EST , Physical Exam Narrative Physical exam General: Awake, disoriented, difficult to comprehend even on telling multiple times. HEENT: Atraumatic, PERRLA, EOMI, Normocephalic Oral: Oral mucosa dry. No Gingival or Mucosal Lesions/ Ulcerations Neck: Supple, No JVD, Negative Carotid Bruits Lungs: Air entry diminished in bilateral lung bases. No crepitation/rhonchi Cardiovascular: Paced rhythm. Hypotensive on Levophed. Normal S1, Normal S2, No murmurs Abdomen: Bowel Sounds Present, Soft, Non Tender, Non-Distended : Purulent urine in the Barnes catheter. Scrotal area macerated. No scrotal ulcer. No renal angle tenderness. No suprapubic tenderness. Extremities: Bilateral 2+ edema, Capillary Refill Less than 3 Seconds Skin: Scab, bruises on lower legs especially on LLE. Venous dermatitis changes with grayish discoloration. Musculoskeletal: No Tenderness to Palpation of Joints or Extremities Neurological: Cranial nerves II-XII grossly intact, DTR 2+/4 and Symmetrical, Neuro grossly intact Psych/Mental Status: Disorganized behavior, playing with the stool on the wall car to transport patient to ED Assessment & Plan Assessment/Plan (1) Acute uremia: PLAN: Patient was having myoclonic activity at the time of admission. Patient's creatinine is 18.5. Discussed with a nurse at [facility] and patient did have dialysis on the but it was incomplete dialysis. Patient gets dialysis Thursday and Thursday. Pmo Manager is consulted. Continue with Cinalcalcet, sevelamer (2) Altered mental status: QUALIFIERS: Altered mental status type: unspecified Qualified C ode(s): R41.82 - Altered mental status, unspecified PLAN: Discussed with the nurse at [facility] see patient has been having behavioral issues while at the facility. Patient will throw himself onto the ground and today was spreading feces on the wall. Further nursing started since it was intentional. This appears to be more of a chronic process but the patient smearing feces on the wall today was new thing. Consult mental crisis evaluation and patient is medically stable. (3) UTI (urinary tract infection): (4) Septic shock: PLAN: 61-year-old male patient was brought to ED by EMS from [facility] for evaluation of abnormal behavior. As per nursing staff patient required psychiatric placement. He denied any chest pain or abdominal pain. during admission patient was found to be hypotensive SBP 67/40. In ED, patient was given IV fluid bolus and hydrocortisone initially admitted in ICU but subsequently patient was found in septic shock and admitted in ICU. Patient states his blood pressure usually runs low around 110 systolic to 90 systolic. 1. Septic shock secondary to UTI: The patient presented with sepsis due to UTI/genitourinary infection with acute sepsis-related organ dysfunction as evidenced by persistent hypotension requiring Levophed/vasopressor, metabolic encephalopathy. CT abdomen pelvis shows bilateral hydronephroureter due to bilateral renal staghorn calculi. Bladder wall thickened, partially contracted. Fluid balloon inflated in the prostatic urethra. No PE.. Urologist is consulted. Patient received aztreonam in the emergency room. Patient does have a history of Proteus mirabilis but is been sensitive to ceftriaxone in the past and will continue with ceftriaxone for now. Patient has an allergy to amoxicillin Follow-up cultures and adjust antibiotics accordingly. Preliminary urine cu lture shows gram-negative silvia. PLAN: Plan Chronic conditions * Diabetes mellitus type 2: Continue with Sitagliptin add sliding scale insulin * Hyperlipidemia: Continue with statin * History of CHF: Appears compensated this time. Hold carvedilol and valsartan for now given hypotension * CAD: Stable. Continue with aspirin and atorvastatin. * Hypertension: Carvedilol and valsartan held on account of the hypotension * Morbid obesity: Complicates care and overall recovery. Patient would be a poor candidate for bariatric evaluation given concerns with compliance * Anemia of chronic disease: Stable. Monitor. No need for transfusion at this time. VTE prophylaxis with subcu heparin CODE STATUS from the group home forms. Patient is full code. Charges/Coding Visit Charges Inpatient E&M: 47622 Subs Hosp L3
[2022-08-07] MEDS: Folic Acid/Vitamin B Comp W-C 1 Capsule 1 CAP PO (08:18)
[2022-08-07] MEDS: Heparin Injection (Vial) 5,000 UNIT/ML VIAL 5000 UNIT SC ×2 (08:18→21:32)
[2022-08-07] MEDS: SEVELAMER CARBONATE 800 MG TABLET 1600 MG PO ×2 (08:18→17:07)
[2022-08-07] MEDS: Aspirin E.C. 81 MG Tablet PO (08:18)
[2022-08-07] MEDS: TITRATION PARAMETER CHANGE 1 EACH IV (08:18)
[2022-08-07] MEDS: LINAGLIPTIN 5 MG TABLET PO (08:19)
[2022-08-07] MEDS: Allopurinol 300 MG Tablet 150 MG PO (08:19)
[2022-08-07] MEDS: Ammonium Lactate 225 gm Bottle 1 APPLIC TOPICAL ×2 (08:19→21:32)
[2022-08-07 08:40] LABS: Bedside Glucose 110 mg/dL (74-106)
[2022-08-07 08:54] LABS: Phosphorus 4.6 mg/dL (2.5-4.9)
--- NOTE | 2022-08-07 09:38 | EX.PCM.CONCC ---
Assessment & Plan Assessment/Plan (1) Septic shock: (2) UTI (urinary tract infection): (3) Altered mental status: QUALIFIERS: Altered mental status type: unspecified Qualified Code(s): R41.82 - Altered mental status, unspecified PLAN: Plan RECOMMENDATIONS: 1. Continue empiric antibiotics 2. Wean pressors as tolerated 3. Dialysis per nephrology 4. Volume removal when able given pressors 5. Initiate Seroquel IMPRESSIONS: 1. Septic shock secondary to UTI Patient with end-stage renal disease, but does have a UA suggestive of UTI. Continue to wean pressors as tolerated. Patient does have metabolic encephalopathy as indication of endorgan damage. Creatinine is not helpful given ESRD. Will add stress dose steroids if patient requires a second pressor. Patient does not appear to be having allergic reactions to current antibiotics. Patient may require protracted antibiotic course given presence of colliculi. Could consider urology evaluation, but is unclear if this has to be done as an inpatient. 2. End-stage renal disease with uremia Nephrology has been consulted. Patient reportedly has refused dialysis intermittently, but was noted to have some myoclonic activity, likely secondary to uremia. Unclear if patient's intolerance to dialysis previously was secondary to problem #1. 3. Metabolic encephalopathy/delirium Multiple possible etiologies. Infection and uremia would be a concern. Patient is having some behavioral issues, so will add Seroquel. Would avoid Ativan if possible 4. History of A. fib/secondary hyperparathyroidism/anemia of chronic disease/diabetes mellitus/obesity/possible psychiatric issues Complicates care, management, recovery and prognosis. Rate appears to be controlled at this time. We will watch blood sugars closely. TIME: 32 minutes critical care time spent addressing patient septic shock, end-stage renal disease, metabolic encephalopathy, review of all data and collaboration with care team HPI Consult Data Date of Consult: 08/07/22 HPI Narrative Reason for Consultation: Septic shock HPI Narrative: JUVENCIO QUINTERO is a 61 M, past medical history listed below, who presents to [facility] on 08/06/2022 secondary to change in mental status and hypotension. Patient reportedly has been considered for psychiatric placement, but nursing staff had noted a significant change in his behavior. Patient reportedly was playing with a stool on the wall prior to transportation to the ER. Patient had been seen in the ER 5 days previous with similar complaints. Patient did not report any chest pain, abdominal pain, nausea or vomiting. Patient had denied any suicidal or homicidal ideation, but reportedly does refuse dialysis frequently. In the ER, patient was afebrile, but hypotensive at 79/38 saturating well on 2 L nasal cannula. Patient did not have any significant tachycardia or tachypnea noted. Laboratory work-up showed a white blood cell count of 10.3, hemoglobin 11.4 and platelets of 144. Chemistries were significant for a bicarbonate of 29, BUN of 93 and creatinine of 18.5. Glucose was slightly elevated at 130. Alcohol level was negative and lactate was within normal limits. Patient did have a CT of his chest abdomen and pelvis showing no PE. Patient did have a Barnes catheter in the prostatic urethra causing cystitis and hydronephrosis. UA was suggestive of urinary tract infection and the patient was admitted to the intensive care unit for possible pressors. In the intensive care unit, patient did have to initiate pressor therapy to maintain adequate blood pressures. Patient was as high as Levophed at 10. Patient also developed some shortness of breath overnight requiring BiPAP rescue. On my evaluation this morning, patient was yelling for someone to come in. On my arrival, patient did not believe that he was sick. Patient is not reporting any urinary symptoms, but Barnes catheter shows purulent discharge. Pressor requirements have slightly improved this morning. Patient has been able to come off of BiPAP and is on minimal nasal cannula oxygen. Patient reportedly is allergic to penicillins, but reaction is unknown. Review of systems otherwise negative from a constitutional, HEENT, respiratory, cardiovascular, GI, genitourinary, musculoskeletal, skin, neurologic, psychiatric and hematologic system unless stated above. [facility] Medical History Acute on chronic renal failure Ambulates with cane Benign prostatic hyperplasia Chronic diastolic (congestive) heart failure Chronic indwelling Barnes catheter CKD stage 5 due to type 2 diabetes mellitus Congestive heart failure (CHF) Diabetes Diabetes mellitus, type II Dialysis patient End-stage renal disease on hemodialysis Essential hypertension Falls frequently Barnes catheter in place Gout History of renal dialysis Hydronephrosis concurrent with and due to calculi of kidney and ureter Hyperlipidemia Hyperosmolar non-ketotic state in patient with type 2 diabetes mellitus ICD (implantable cardioverter-defibrillator) in place Iron deficiency anemia Kidney disease Left bundle branch block (LBBB) Morbid obesity Non-ischemic cardiomyopathy Non-smoker Nonsustained ventricular tachycardia Open wound RAQUEL (obstructive sleep apnea) Right foot drop Secondary hyperparathyroidism (of renal origin) Sleep apnea Venous ulcer of left lower extremity without varicose veins Walker as ambulation aid Wears glasses Home Medications allopurinol 300 mg tablet 150 mg PO DAILY GOUT 01/27/16 [History Last Taken 08/05/22] latanoprost 0.005 % eye drops 1 drp EACH EYE QHS GLAUCOMA 12/23/18 [History Last Taken 08/05/22] tamsulosin 0.4 mg capsule 0.4 mg PO QHS PROSTATE 06/21/19 [History Last Taken 08/01/22] carvedilol 25 mg tablet 37.5 mg PO BID HEART 02/27/21 [History Last Taken 08/05/22] sevelamer carbonate 800 mg tablet 1,600 mg PO TIDCM KIDNEY DISEASE 03/26/22 [History Last Taken 08/05/22] acetaminophen 325 mg tablet (Tylenol) 1,300 mg PO Q4H PRN Pain 08/06/22 [History Last Taken 08/04/22] aluminum-magnesium hydroxide 225 mg-200 mg/5 mL oral suspension 30 ml PO Q4H PRN Acid Reflux 08/06/22 [History Last Taken 07/31/22] ammonium lactate 12 % lotion 1 applic topical BID SEVERE DRY SKIN 08/06/22 [History Last Taken 08/06/22] aspirin 81 mg tablet,delayed release 81 mg PO DAILY HEART HEALTH 08/06/22 [History Last Taken 08/05/22] atorvastatin 80 mg tablet 80 mg PO QHS CHOLESTEROL 08/06/22 [History Last Taken 08/05/22] cinacalcet 60 mg tablet 60 mg PO MOTUWEFR SUPPLEMENT 08/06/22 [History Last Taken 08/05/22] mupirocin 2 % topical ointment 1 applic topical QHS WOUND HEALING 08/06/22 [History Last Taken 08/05/22] pollens extract 1 tab PO BID SUPPLEMENT 08/06/22 [History Last Taken 08/05/22] sitagliptin phosphate 25 mg tablet (Januvia) 25 mg PO DAILY 08/06/22 [History Last Taken 08/05/22] valsartan 40 mg tablet 40 mg PO BID BLOOD PRESSURE 08/06/22 [History Last Taken 08/06/22] vitamin B complex and vitamin C no.20-folic acid 1 mg capsule 1 cap PO DAILY SUPPLEMENT 08/06/22 [History Last Taken 08/05/22] Allergy/AdvReac Type Severity Reaction Status Date / Time aluminum Allergy PT UNSURE Verified 08/06/22 12:53 OF REACTION amoxicillin [From Augmentin] Allergy PT UNSURE Verified 08/06/22 12:53 OF REACTION clavulanic acid Allergy PT UNSURE Verified 08/06/22 12:53 [From Augmentin] OF REACTION Family History Father Hypertension Heart disease Diabetes Mother Diabetes Chronic kidney disease Hypertension Anemia Surgical History H/O skin graft History of tonsillectomy and adenoidectomy Hx of appendectomy Hx of tonsillectomy Presence of biventricular implantable cardioverter-defibrillator (ICD) (05/14/11) Social History household members: none Smoking Status: Never smoker alcohol intake: never substance use type: does not use caffeine: Yes ROS ROS Narrative See HPI Physical Exam Const alert HEENT moist oral mucous membranes HEENT Narrative: Protrusion approximately 2 x 3 cm with fungating appearance at the hairline. No surrounding erythema or exudate. Eyes PERRL, EOMs intact bilaterally, conjunctivae normal and no scleral icterus Neck full ROM Resp normal respiratory effort, no retractions, no use of accessory muscles and clear to auscultation bilaterally Cardio regular rate, regular rhythm, S1 normal heart sound, S2 normal heart sound, no murmurs, no rub and no gallops GI normal to inspection, nondistended, normoactive bowel sounds, soft to palpation, non-tender and non-distended Extremity normal to inspection and full ROM General Extremity: Negative for edema Neuro moves all extremities Sensorium / Orientation: awake Psych Psych Narrative: Slightly pressured speech Activity / Motor Behavior: restless Mood & Affect: anxious Lab / Micro Data Attestation: I reviewed the patient's lab results. Result Diagrams: 08/07/22 04:00 08/07/22 04:00 Labs: Laboratory Results - last 24 hr 08/06/22 13:23: WBC 10.3, RBC 3.77 L, Hgb 11.4 L, Hct 35.7 L, MCV 94.7 H, MCH 30.2, MCHC 31.9 L, RDW Std Deviation 66.4 H, RDW Coeff of Jeffrey 19.8 H, Plt Count 144 L, MPV 10.3, Immature Gran % (Auto) 0.900, Neut % (Auto) 70.5 H, Lymph % (Auto) 14.7 L, Reynolds % (Auto) 10.8 H, Eos % (Auto) 2.5, Baso % (Auto) 0.6, Absolute Neuts (auto) 7.3, Absolute Lymphs (auto) 1.51, Nucleated RBC % 0.3, Differential Comment SCANNED 08/06/22 13:23: Sodium 142, Potassium 5.0, Chloride 101, Carbon Dioxide 29.0, Anion Gap 12, BUN 93 H, Creatinine 18.50 H*, Estim Creat Clear Calc 4.35, Est GFR (MDRD) Af Amer 3 L, Est GFR (MDRD) Non-Af 3 L, BUN/Creatinine Ratio 5.0 L, Glucose 130 H, Calcium 8.9 08/06/22 13:23: Ethyl Alcohol < 3.0 08/06/22 13:23: Troponin I High Sens 48 08/06/22 14:40: Lactic Acid 1.5 08/06/22 16:23: Cortisol 28.00 H 08/06/22 17:25: Urine Opiates Screen NEGATIVE, Urine Methadone Screen NEGATIVE, Ur Barbiturates Screen NEGATIVE, Ur Phencyclidine Scrn NEGATIVE, Ur Amphetamines Screen NEGATIVE, MDMA (Ecstasy) Screen NEGATIVE, U Benzodiazepines Scrn NEGATIVE, Urine Cocaine Screen NEGATIVE, U Cannabinoids Screen NEGATIVE, Ur Drug Screen Comment 08/06/22 17:25: Urine Color SEE COMMENT BELOW, Urine Clarity Turbid, Urine pH 7.0, Ur Specific [place] 1.020, Urine Protein 500 H, Urine Glucose (UA) Normal, Urine Ketones 15 H, Urine Occult Blood 250 H, Urine Nitrite Negative, Urine Bilirubin Negative, Urine Urobilinogen Normal, Ur Leukocyte Esterase 500 H, Urine RBC 0 SEEN, Urine WBC >100 SEEN, Ur Squamous Epith Cells 0 SEEN, Urine Bacteria 4+, Urine Mucus 0 SEEN 08/06/22 22:12: POC Glucose 109 H 08/07/22 04:00: WBC 8.7, RBC 3.37 L, Hgb 10.2 L, Hct 33.2 L, MCV 98.5 H, MCH 30.3, MCHC 30.7 L, RDW Std Deviation 69.0 H, RDW Coeff of Jeffrey 19.4 H, Plt Count 107 L, MPV 9.9, Immature Gran % (Auto) 1.300 H, Neut % (Auto) 84.2 H, Lymph % (Auto) 8.2 L, Reynolds % (Auto) 5.9, Eos % (Auto) 0.1, Baso % (Auto) 0.3, Absolute Neuts (auto) 7.3, Absolute Lymphs (auto) 0.71 L, Nucleated RBC % 0, Differential Comment SCANNED, Anisocytosis 2+, Microcytosis 1+, Macrocytosis 1+ 08/07/22 04:00: Sodium 143, Potassium 4.7, Chloride 108 H, Carbon Dioxide 22.0, Anion Gap 13, BUN 94 H, Creatinine 17.40 H*, Estim Creat Clear Calc 4.63, Est GFR (MDRD) Af Amer 4 L, Est GFR (MDRD) Non-Af 3 L, BUN/Creatinine Ratio 5.4 L, Glucose 149 H, Calcium 8.1 L, Total Bilirubin 0.40, AST 21, ALT 9 L, Alkaline Phosphatase 79, Total Protein 7.1, Albumin 2.2 L, Globulin 4.9 H, Albumin/Globulin Ratio 0.4 L 08/07/22 04:00: Phosphorus 4.6 08/07/22 08:14: POC Glucose 110 H Micro: Microbiology 08/06/22 15:10 Nasal Secretion SARS-CoV-2 & FLU Antigen (Rapid) - Final Radiology Impression Chest X-Ray 08/06/22 15:25 IMPRESSION: Borderline cardiomegaly. Electronically Signed: Leonard Nunez MD at 15:35 EST , Chest/Abdomen/Pelvis CTA 08/06/22 16:14 IMPRESSION: 1. No demonstrated pulmonary embolism or arterial dissection. 2. There is patchy bilateral groundglass infiltrate suggesting bilateral pneumonia. 3. Bilateral hydronephroureter. 4. Bilateral renal staghorn calculi. 5. Urinary bladder wall has wall thickening. This can be related to a partially contractile state. However, a cystitis is not excluded. Urinalysis should be performed in an effort to exclude cystitis. 6. Fluid balloon is inflated within the prostatic urethra. Electronically Signed: Giancarlo Sun MD at 17:12 EST , ADDENDUM: 08/06/22 1725 IMPRESSION: 1. No demonstrated pulmonary embolism or arterial dissection. 2. There is patchy bilateral groundglass infiltrate suggesting bilateral pneumonia. 3. Bilateral hydronephroureter. 4. Bilateral renal staghorn calculi. 5. Urinary bladder wall has wall thickening. This can be related to a partially contractile state. However, a cystitis is not excluded. Urinalysis should be performed in an effort to exclude cystitis. 6. Fluid balloon is inflated within the prostatic urethra. N.B. : The above Results were Read Back by Giancarlo Sun MD to Dr. Tanya MD, and understanding confirmed on 08/06/2022 17:18:50 (ET). Electronically Signed: Giancarlo Sun MD at 17:12 EST , Charges/Coding Procedures Hospitalists Procedures: [id number] [facility]
--- NOTE | 2022-08-07 09:48 | PCM.CONS.R ---
Assessment & Plan Assessment/Plan (1) End-stage renal disease on hemodialysis: PLAN: Dialysis today. Last dialysis was Thursday. [facility] this [facility]. (2) Hypotension: PLAN: BP stable after IV fluids and pressor support. PAncultured. Shock sepsis. Await blood cx. Hold BP meds. 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 Recent hospitalization for NSTEMI with transfer to tertiary care at [facility]. No intervention done per pt. (7) UTI (urinary tract infection): PLAN: Antibiotics with renal dosing (8) Altered mental status: QUALIFIERS: Altered mental status type: unspecified Qualified Code(s): R41.82 - Altered mental status, unspecified PLAN: Mentation back to baseline. Patient with developmental delay at baseline (9) Anemia: PLAN: Hemoglobin stable 10.2 HPI Consult Data Date of Consult: 08/08/22 HPI Narrative Reason for Consultation: ESRD on home hemodialysis, neck stage at [facility] HPI Narrative: JUVENCIO QUINTERO, is a 61 M who [facility] his [facility] with [facility] behavior.?chest x-ray, CT head done in ER were unremarkable.? Currently treated for UTI with chronic indwelling Barnes catheter for urinary retention. He is currently in the intensive care unit overflow. His mental status is at baseline. He has end-stage renal disease from diabetes. He is currently dialyzed at [facility] 4 times a week. However he has refused to come down for dialysis the past 2 days. His last dialysis was on Thursday. He does not recall refusing to come for his dialysis. He is in agreement to have his dialysis done today. He has working AV fistula in the right forearm. [facility] Medical History Acute on chronic renal failure Ambulates with cane Benign prostatic hyperplasia Chronic diastolic (congestive) heart failure Chronic indwelling Barnes catheter CKD stage 5 due to type 2 diabetes mellitus Congestive heart failure (CHF) Diabetes Diabetes mellitus, type II Dialysis patient End-stage renal disease on hemodialysis Essential hypertension Falls frequently Barnes catheter in place Gout History of renal dialysis Hydronephrosis concurrent with and due to calculi of kidney and ureter Hyperlipidemia Hyperosmolar non-ketotic state in patient with type 2 diabetes mellitus ICD (implantable cardioverter-defibrillator) in place Iron deficiency anemia Kidney disease Left bundle branch block (LBBB) Morbid obesity Non-ischemic cardiomyopathy Non-smoker Nonsustained ventricular tachycardia Open wound RAQUEL (obstructive sleep apnea) Right foot drop Secondary hyperparathyroidism (of renal origin) Sleep apnea Venous ulcer of left lower extremity without varicose veins Walker as ambulation aid Wears glasses Home Medications allopurinol 300 mg tablet 150 mg PO DAILY GOUT 01/27/16 [History Last Taken 08/05/22] latanoprost 0.005 % eye drops 1 drp EACH EYE QHS GLAUCOMA 12/23/18 [History Last Taken 08/05/22] tamsulosin 0.4 mg capsule 0.4 mg PO QHS PROSTATE 06/21/19 [History Last Taken 08/01/22] carvedilol 25 mg tablet 37.5 mg PO BID HEART 02/27/21 [History Last Taken 08/05/22] sevelamer carbonate 800 mg tablet 1,600 mg PO TIDCM KIDNEY DISEASE 03/26/22 [History Last Taken 08/05/22] acetaminophen 325 mg tablet (Tylenol) 1,300 mg PO Q4H PRN Pain 08/06/22 [History Last Taken 08/04/22] aluminum-magnesium hydroxide 225 mg-200 mg/5 mL oral suspension 30 ml PO Q4H PRN Acid Reflux 08/06/22 [History Last Taken 07/31/22] ammonium lactate 12 % lotion 1 applic topical BID SEVERE DRY SKIN 08/06/22 [History Last Taken 08/06/22] aspirin 81 mg tablet,delayed release 81 mg PO DAILY HEART HEALTH 08/06/22 [History Last Taken 08/05/22] atorvastatin 80 mg tablet 80 mg PO QHS CHOLESTEROL 08/06/22 [History Last Taken 08/05/22] cinacalcet 60 mg tablet 60 mg PO MOTUWEFR SUPPLEMENT 08/06/22 [History Last Taken 08/05/22] mupirocin 2 % topical ointment 1 applic topical QHS WOUND HEALING 08/06/22 [History Last Taken 08/05/22] pollens extract 1 tab PO BID SUPPLEMENT 08/06/22 [History Last Taken 08/05/22] sitagliptin phosphate 25 mg tablet (Januvia) 25 mg PO DAILY 08/06/22 [History Last Taken 08/05/22] valsartan 40 mg tablet 40 mg PO BID BLOOD PRESSURE 08/06/22 [History Last Taken 08/06/22] vitamin B complex and vitamin C no.20-folic acid 1 mg capsule 1 cap PO DAILY SUPPLEMENT 08/06/22 [History Last Taken 08/05/22] Allergy/AdvReac Type Severity Reaction Status Date / Time aluminum Allergy PT UNSURE Verified 08/06/22 12:53 OF REACTION amoxicillin [From Augmentin] Allergy PT UNSURE Verified 08/06/22 12:53 OF REACTION clavulanic acid Allergy PT UNSURE Verified 08/06/22 12:53 [From Augmentin] OF REACTION Family History Father Hypertension Heart disease Diabetes Mother Diabetes Chronic kidney disease Hypertension Anemia Surgical History H/O skin graft History of tonsillectomy and adenoidectomy Hx of appendectomy Hx of tonsillectomy Presence of biventricular implantable cardioverter-defibrillator (ICD) (05/14/11) Social History household members: none Smoking Status: Never smoker alcohol intake: never substance use type: does not use caffeine: Yes ROS Constitutional Constitutional: Denies chills, fever(s), malaise or weakness Eyes Eyes: Denies loss of vision ENT HEENT: Denies loss taste/smell Cardiovascular Cardiovascular: Denies chest pain Respiratory/Chest Respiratory/Chest: Denies dry cough or shortness of breath at rest Gastrointestinal Gastrointestinal: Denies abdominal pain, anorexia or diarrhea Genitourinary Genitourinary: Reports other Details: Chronic indwelling Barnes catheter Musculoskeletal Musculoskeletal: Reports other Details: No swelling Neurologic Neurologic: Denies focal weakness Psychiatric Psychiatric: Denies confusion or depression Endocrine Endocrinology: Reports fatigue Hematologic/Lymphatic Hematologic/Lymphatic: Reports anemia Physical Exam Const alert and oriented x3 General Appearance: well developed Nutritional Appearance: morbidly obese HEENT normocephalic Resp clear to auscultation bilaterally Cardio regular rate Cardio Narrative: paced Rhythm: abnormal rhythm GI non-tender and non-distended Auscultation: normoactive bowel sounds Palpation: soft Neuro CN's II-XII intact bilaterally Motor Exam: no tremor Psych cooperative Psych Narrative: Developmentally delayed Memory / Cognition: cognition impaired Lab / Micro Data Result Diagrams: 08/08/22 04:17 08/08/22 04:17 Labs: Laboratory Results - last 24 hr 08/06/22 13:23: WBC 10.3, RBC 3.77 L, Hgb 11.4 L, Hct 35.7 L, MCV 94.7 H, MCH 30.2, MCHC 31.9 L, RDW Std Deviation 66.4 H, RDW Coeff of Jeffrey 19.8 H, Plt Count 144 L, MPV 10.3, Immature Gran % (Auto) 0.900, Neut % (Auto) 70.5 H, Lymph % (Auto) 14.7 L, Sibley % (Auto) 10.8 H, Eos % (Auto) 2.5, Baso % (Auto) 0.6, Absolute Neuts (auto) 7.3, Absolute Lymphs (auto) 1.51, Nucleated RBC % 0.3, Differential Comment SCANNED 08/06/22 13:23: Sodium 142, Potassium 5.0, Chloride 101, Carbon Dioxide 29.0, Anion Gap 12, BUN 93 H, Creatinine 18.50 H*, Estim Creat Clear Calc 4.35, Est GFR (MDRD) Af Amer 3 L, Est GFR (MDRD) Non-Af 3 L, BUN/Creatinine Ratio 5.0 L, Glucose 130 H, Calcium 8.9 08/06/22 13:23: Ethyl Alcohol < 3.0 08/06/22 13:23: Troponin I High Sens 48 08/06/22 14:40: Lactic Acid 1.5 08/06/22 16:23: Cortisol 28.00 H 08/06/22 17:25: Urine Opiates Screen NEGATIVE, Urine Methadone Screen NEGATIVE, Ur Barbiturates Screen NEGATIVE, Ur Phencyclidine Scrn NEGATIVE, Ur Amphetamines Screen NEGATIVE, MDMA (Ecstasy) Screen NEGATIVE, U Benzodiazepines Scrn NEGATIVE, Urine Cocaine Screen NEGATIVE, U Cannabinoids Screen NEGATIVE, Ur Drug Screen Comment 08/06/22 17:25: Urine Color SEE COMMENT BELOW, Urine Clarity Turbid, Urine pH 7.0, Ur Specific [place] 1.020, Urine Protein 500 H, Urine Glucose (UA) Normal, Urine Ketones 15 H, Urine Occult Blood 250 H, Urine Nitrite Negative, Urine Bilirubin Negative, Urine Urobilinogen Normal, Ur Leukocyte Esterase 500 H, Urine RBC 0 SEEN, Urine WBC >100 SEEN, Ur Squamous Epith Cells 0 SEEN, Urine Bacteria 4+, Urine Mucus 0 SEEN 08/06/22 22:12: POC Glucose 109 H 08/07/22 04:00: WBC 8.7, RBC 3.37 L, Hgb 10.2 L, Hct 33.2 L, MCV 98.5 H, MCH 30.3, MCHC 30.7 L, RDW Std Deviation 69.0 H, RDW Coeff of Jeffrey 19.4 H, Plt Count 107 L, MPV 9.9, Immature Gran % (Auto) 1.300 H, Neut % (Auto) 84.2 H, Lymph % (Auto) 8.2 L, Sibley % (Auto) 5.9, Eos % (Auto) 0.1, Baso % (Auto) 0.3, Absolute Neuts (auto) 7.3, Absolute Lymphs (auto) 0.71 L, Nucleated RBC % 0, Differential Comment SCANNED, Anisocytosis 2+, Microcytosis 1+, Macrocytosis 1+ 08/07/22 04:00: Sodium 143, Potassium 4.7, Chloride 108 H, Carbon Dioxide 22.0, Anion Gap 13, BUN 94 H, Creatinine 17.40 H*, Estim Creat Clear Calc 4.63, Est GFR (MDRD) Af Amer 4 L, Est GFR (MDRD) Non-Af 3 L, BUN/Creatinine Ratio 5.4 L, Glucose 149 H, Calcium 8.1 L, Total Bilirubin 0.40, AST 21, ALT 9 L, Alkaline Phosphatase 79, Total Protein 7.1, Albumin 2.2 L, Globulin 4.9 H, Albumin/Globulin Ratio 0.4 L 08/07/22 04:00: Phosphorus 4.6 08/07/22 08:14: POC Glucose 110 H Micro: Microbiology 08/06/22 15:10 Nasal Secretion SARS-CoV-2 & FLU Antigen (Rapid) - Final Radiology Impression Chest X-Ray 08/06/22 15:25 IMPRESSION: Borderline cardiomegaly. Electronically Signed: Leonard Nunez MD at 15:35 EST , Chest/Abdomen/Pelvis CTA 08/06/22 16:14 IMPRESSION: 1. No demonstrated pulmonary embolism or arterial dissection. 2. There is patchy bilateral groundglass infiltrate suggesting bilateral pneumonia. 3. Bilateral hydronephroureter. 4. Bilateral renal staghorn calculi. 5. Urinary bladder wall has wall thickening. This can be related to a partially contractile state. However, a cystitis is not excluded. Urinalysis should be performed in an effort to exclude cystitis. 6. Fluid balloon is inflated within the prostatic urethra. Electronically Signed: Giancarlo Sun MD at 17:12 EST , ADDENDUM: 08/06/22 1725 IMPRESSION: 1. No demonstrated pulmonary embolism or arterial dissection. 2. There is patchy bilateral groundglass infiltrate suggesting bilateral pneumonia. 3. Bilateral hydronephroureter. 4. Bilateral renal staghorn calculi. 5. Urinary bladder wall has wall thickening. This can be related to a partially contractile state. However, a cystitis is not excluded. Urinalysis should be performed in an effort to exclude cystitis. 6. Fluid balloon is inflated within the prostatic urethra. N.B. : The above Results were Read Back by Giancarlo Sun MD to Dr. Tanya MD, and understanding confirmed on 08/06/2022 17:18:50 (ET). Electronically Signed: Giancarlo Sun MD at 17:12 EST ,
[2022-08-07] MEDS: Ceftriaxone 1 GM/50 ML BAG IV (09:50)
[2022-08-07] MEDS: QUEtiapine 25 MG Tablet 50 MG PO (10:47)
[2022-08-07 12:00] LABS: Bedside Glucose 119 mg/dL (74-106)
--- NOTE | 2022-08-07 13:01 | CASEMGMT ---
SW sent updates to [facility] via [facility]. Giselle Ervin [employer]
--- NOTE | 2022-08-07 14:38 | NURSING ---
blood pressure low while receiving dialysis. Levophed at 10mcg/min. Star aware and stated to maintain levophed at the max rate of 10mcg/min through a peripheral IV and to monitor BP closely while on dialysis. Attempt to titrate levophed down once dialysis is complete.
[2022-08-07 18:15] LABS: Bedside Glucose 97 mg/dL (74-106)
--- NOTE | 2022-08-07 19:24 | DIALYSIS ---
hemodialysis completed at 16:55, x 4hrs. Access via RFA AVF. Net UF 0. pt stable post tx. See HD flowsheet on chart.
[2022-08-07] MEDS: Latanoprost 0.005% 1 Bottle 1 DRP EACH EYE (21:33)
[2022-08-07] MEDS: Mupirocin Ointment 22gm Tube 1 APPLIC TOPICAL (21:33)
[2022-08-07] MEDS: Atorvastatin Calcium 80 MG Tablet PO (21:33)
[2022-08-07] MEDS: 0.9% Saline Lock 10 ML Syringe IV (21:44)
[2022-08-07 22:10] LABS: Bedside Glucose 117 mg/dL (74-106)
[2022-08-08] VITALS (36 sets, daily range): BP systolic 69–117; BP diastolic 39–89; PULSE 78–105; RESP 12–26; TEMP 36.3–36.7; O2SAT 92–100
[2022-08-08 04:24] LABS: Absolute Lymphocyte Count 1.45 X10^3/uL (0.83-4.51); Absolute Neutrophil Count 6.5 X10^3/uL (2.0-7.7); Basophil# 0.09 X10^3/uL; Eosinophil# 0.38 X10^3/uL; Hematocrit 35.9 % (40-54); Hemoglobin 10.3 g/dL (13.0-16.5); Lymphocyte # 1.45 X10^3/ul (0.83-4.51); Lymphocyte % 15.3 % (19-41); Mean Corp Hgb Conc 28.7 g/dL (32-36); Mean Corpuscular Hgb 29.1 pg (27.0-32.0); Mean Corpuscular Volume 101.4 fL (80-94); Mean Platelet Vol. 11.6 fl (6.2-12.0); Monocyte# 0.71 X10^3/uL; Monocyte% 7.5 % (0-10); NRBC Flagged by Analyzer 0.3 % (0-5); Neutrophil # 6.45 X10^3/uL (2.7-7.7); Neutrophil % 68.3 % (47-70); POSITIVE COUNT YES; POSITIVE MORPHOLOGY YES; Platelet Count 86 K/mm3 (150-450); RBC Distribution Width CV 19.7 % (11.6-14.6); RBC Distribution Width SD 72.6 fl (35.1-43.9); Red Blood Count 3.54 M/mm3 (4.6-6.2); White Blood Count 9.5 K/mm3 (4.4-11.0)
[2022-08-08 04:41] LABS: Differential Indicated SCAN CRITERIA MET
[2022-08-08 04:52] LABS: Anion Gap 9 (5-15); BUN 37 mg/dL (7-18); BUN/Creat Ratio 4.3 RATIO (10-20); Calcium,Total 7.1 mg/dL (8.5-10.1); Chloride 108 mmol/L (98-107); Creatinine, Serum 8.66 mg/dL (0.70-1.30); EST Glomerular Filtration Rate 7 mL/min (>60); Est Glom Filt Rate - Afr Amer 8 mL/min (>60); Glucose 113 mg/dL (74-106); Potassium 3.3 mmol/L (3.5-5.1); Sodium Level 140 mmol/L (136-145)
[2022-08-08 04:59] LABS: Differential Comment SCANNED
[2022-08-08 05:01] LABS: Ovalocyte RARE
[2022-08-08] MEDS: Midazolam 2 MG/2 ML Syringe IV (05:02)
[2022-08-08] MEDS: 0.9% Saline Lock 10 ML Syringe IV ×2 (05:03→05:35)
[2022-08-08] MEDS: Midazolam 2 MG/2 ML Syringe 4 MG IV (05:34)
--- NOTE | 2022-08-08 05:55 | PCM.PN.BLA ---
Progress Note Attempted left IJ. Guidewire could not advanced at x2. Pressures unsuccessful. Patient was given 2 mg of Versed and later 4 mg of Versed as patient was screaming even before needle insertion.
--- NOTE | 2022-08-08 07:44 | PN.CC_ITS ---
Assessment & Plan Assessment/Plan (1) Septic shock: (2) UTI (urinary tract infection): (3) Altered mental status: QUALIFIERS: Altered mental status type: unspecified Qualified Code(s): R41.82 - Altered mental status, unspecified PLAN: Plan RECOMMENDATIONS: 1. Continue empiric antibiotics 2. Wean pressors as tolerated. Place central line 3. Dialysis per nephrology 4. Volume removal when able given pressors 5. Use Seroquel with caution IMPRESSIONS: 1. Septic shock secondary to UTI Patient with end-stage renal disease, but does have a UA suggestive of UTI. Continue to wean pressors as tolerated. Patient does have metabolic encephalopathy as indication of endorgan damage. Creatinine is not helpful given ESRD. Will add stress dose steroids if patient requires a second pressor. Patient does not appear to be having allergic reactions to current antibiotics. Patient may require protracted antibiotic course given presence of colliculi. Could consider urology evaluation, but is unclear if this has to be done as an inpatient. Given ongoing pressor requirements and dosages, central line will be needed. 2. End-stage renal disease with uremia Nephrology has been consulted. Patient reportedly has refused dialysis intermittently, but was noted to have some myoclonic activity, likely secondary to uremia. This has improved following hemodialysis. Unclear if patient's intolerance to dialysis previously was secondary to problem #1. 3. Metabolic encephalopathy/delirium Multiple possible etiologies. Infection and uremia would be a concern. Patient with significant sedation associated with 50 mg of Seroquel during this hospitalization. 4. History of A. fib/secondary hyperparathyroidism/anemia of chronic disease/diabetes mellitus/obesity/possible psychiatric issues Complicates care, management, recovery and prognosis. Rate appears to be controlled at this time. We will watch blood sugars closely. TIME: 34 minutes critical care time spent addressing patient septic shock, end- stage renal disease, metabolic encephalopathy, review of all data and collaboration with care team Subjective Subjective Patient did okay overnight from respiratory standpoint. Unfortunately, patient has required increasing pressor requirements over the last 24 hours. Attempts at a central line by hospitalist were unsuccessful. Patient remains confused, but is more interactive today. Patient continues to have poor insight into his overall condition and states I feel fine. Objective Data Objective Data Patient did have hemodialysis on 08/07/2022 and tolerated it well. Vital Signs: Vital Signs Temp Pulse Resp BP Pulse Ox O2 Del Method O2 Flow Rate 36.4 C L 88 22 H 104/66 94 Room Air 4 08/08/22 04:00 08/08/22 07:00 08/08/22 07:00 08/08/22 07:00 08/08/22 07:00 08/08/22 07:00 08/07/22 12:55 FiO2 30 08/08/22 05:00 Oxygen Flow Rate (L/min) 4 Oxygen Delivery Method Room Air Weight: 123.4 kg Body Mass Index (BMI) 38.0 Intake & Output: Intake and Output for Last 24 Hours 08/06/22 08/07/22 08/08/22 23:59 23:59 23:59 Intake Total 2642.87 / 2647.57 810.67 / 825.67 133.67 / 133.67 Output Total 450 / 450 150 / 200 75 / 75 Balance 2192.87 / 2197.57 660.67 / 625.67 58.67 / 58.67 Lab / Micro Data Attestation: I reviewed the patient's lab results. Result Diagrams: 08/08/22 04:17 08/08/22 04:17 Labs: Laboratory Results - last 24 hr 08/07/22 04:00: Phosphorus 4.6 08/07/22 08:14: POC Glucose 110 H 08/07/22 11:38: POC Glucose 119 H 08/07/22 17:06: POC Glucose 97 08/07/22 21:52: POC Glucose 117 H 08/08/22 04:17: WBC 9.5, RBC 3.54 L, Hgb 10.3 L, Hct 35.9 L, MCV 101.4 H, MCH 29.1, MCHC 28.7 L D, RDW Std Deviation 72.6 H, RDW Coeff of Jeffrey 19.7 H, Plt Count 86 L, MPV 11.6, Immature Gran % (Auto) 3.900 H, Neut % (Auto) 68.3, Lymph % (Auto) 15.3 L, Carson % (Auto) 7.5, Eos % (Auto) 4.0, Baso % (Auto) 1.0, Absolute Neuts (auto) 6.5, Absolute Lymphs (auto) 1.45, Nucleated RBC % 0.3, Differential Comment SCANNED, Ovalocytes RARE 08/08/22 04:17: Sodium 140, Potassium 3.3 L, Chloride 108 H, Carbon Dioxide 23.0, Anion Gap 9, BUN 37 H, Creatinine 8.66 H*, Estim Creat Clear Calc 9.30, Est GFR (MDRD) Af Amer 8 L, Est GFR (MDRD) Non-Af 7 L, BUN/Creatinine Ratio 4.3 L, Glucose 113 H, Calcium 7.1 L Micro: Microbiology 08/06/22 14:18 Blood Culture (Wb) - Anticubital Left Blood Culture - Pre liminary No growth in 48 hours. 08/06/22 14:25 Blood Culture (Wb) - Left Wrist Blood Culture - Preliminary No growth in 48 hours. 08/06/22 17:25 Urine Catheter - Barnes Urine Culture - Preliminary Gram negative silvia 08/06/22 15:10 Nasal Secretion SARS-CoV-2 & FLU Antigen (Rapid) - Final Physical Exam Const alert and no apparent distress; Negative for oriented x3 Nutritional Appearance: obese centrally obese HEENT moist oral mucous membranes Eyes PERRL, EOMs intact bilaterally, conjunctivae normal and no scleral icterus Neck full ROM Resp normal respiratory effort, no retractions, no use of accessory muscles and clear to auscultation bilaterally Cardio regular rate, regular rhythm, S1 normal heart sound, S2 normal heart sound, no murmurs, no rub and no gallops GI normal to inspection, nondistended, normoactive bowel sounds, soft to palpation, non-tender and non-distended Extremity normal to inspection and full ROM General Extremity: Negative for edema Neuro CN's II-XII intact bilaterally and moves all extremities Sensorium / Orientation: awake Psych Psych Narrative: Slightly pressured speech Activity / Motor Behavior: restless Mood & Affect: anxious Charges/Coding Procedures Hospitalists Procedures: [id number] Critial Care 1st Hr
[2022-08-08] MEDS: SEVELAMER CARBONATE 800 MG TABLET 1600 MG PO ×3 (10:12→17:20)
[2022-08-08] MEDS: Allopurinol 300 MG Tablet 150 MG PO (10:13)
[2022-08-08] MEDS: Aspirin E.C. 81 MG Tablet PO (10:14)
[2022-08-08] MEDS: Folic Acid/Vitamin B Comp W-C 1 Capsule 1 CAP PO (10:14)
[2022-08-08] MEDS: Heparin Injection (Vial) 5,000 UNIT/ML VIAL 5000 UNIT SC ×2 (10:15→20:52)
[2022-08-08] MEDS: Cinacalcet HCl 30 MG Tablet 60 MG PO (10:18)
[2022-08-08] MEDS: LINAGLIPTIN 5 MG TABLET PO (10:18)
[2022-08-08] MEDS: Ceftriaxone 1 GM/50 ML BAG IV (10:19)
[2022-08-08] MEDS: Ammonium Lactate 225 gm Bottle 1 APPLIC TOPICAL ×2 (10:20→20:52)
--- NOTE | 2022-08-08 10:33 | CASEMGMT ---
Social Work Phone call to Rhea at [facility] and they are able to take pt back when medically ready. Updates provided. Plan: [facility], when medically ready BARBARA Rene
[2022-08-08 11:20] LABS: Bedside Glucose 146 mg/dL (74-106)
--- NOTE | 2022-08-08 11:49 | PN.RENAL_ITS ---
Subjective Subjective appears confused, lethargic today. Still hypotensive on pressors. Dialysis yesterday without fluid removal due to hypotension. Next dialysis tomorrow Objective Data Objective Data Vital Signs: Vital Signs Temp Pulse Resp BP Pulse Ox O2 Del Method O2 Flow Rate 97.6 F L 86 18 104/66 94 Room Air 4 08/08/22 04:00 08/08/22 08:00 08/08/22 08:00 08/08/22 07:00 08/08/22 07:00 08/08/22 08:00 08/07/22 12:55 FiO2 92 08/08/22 08:00 Oxygen Flow Rate (L/min) 4 Oxygen Delivery Method Room Air Weight: 123.4 kg Body Mass Index (BMI) 38.0 Intake & Output: Intake and Output for Last 24 Hours 08/06/22 08/07/22 08/08/22 23:59 23:59 23:59 Intake Total 2642.87 / 2647.57 810.67 / 825.67 333.67 / 333.67 Output Total 450 / 450 150 / 200 75 / 75 Balance 2192.87 / 2197.57 660.67 / 625.67 258.67 / 258.67 Lab / Micro Data Result Diagrams: 08/08/22 04:17 08/08/22 04:17 Labs: Laboratory Results - last 24 hr 08/07/22 11:38: POC Glucose 119 H 08/07/22 17:06: POC Glucose 97 08/07/22 21:52: POC Glucose 117 H 08/08/22 04:17: WBC 9.5, RBC 3.54 L, Hgb 10.3 L, Hct 35.9 L, MCV 101.4 H, MCH 29.1, MCHC 28.7 L D, RDW Std Deviation 72.6 H, RDW Coeff of Jeffrey 19.7 H, Plt Count 86 L, MPV 11.6, Immature Gran % (Auto) 3.900 H, Neut % (Auto) 68.3, Lymph % (Auto) 15.3 L, Mccreary % (Auto) 7.5, Eos % (Auto) 4.0, Baso % (Auto) 1.0, Absolute Neuts (auto) 6.5, Absolute Lymphs (auto) 1.45, Nucleated RBC % 0.3, Differential Comment SCANNED, Ovalocytes RARE 08/08/22 04:17: Sodium 140, Potassium 3.3 L, Chloride 108 H, Carbon Dioxide 23.0, Anion Gap 9, BUN 37 H, Creatinine 8.66 H*, Estim Creat Clear Calc 9.30, Est GFR (MDRD) Af Amer 8 L, Est GFR (MDRD) Non-Af 7 L, BUN/Creatinine Ratio 4.3 L, Glucose 113 H, Calcium 7.1 L 08/08/22 11:01: POC Glucose 146 H Micro: Microbiology 08/06/22 17:25 Urine Catheter - Barnes Urine Culture - Preliminary Gram negative silvia 08/06/22 14:18 Blood Culture (Wb) - Anticubital Left Blood Culture - Preliminary No growth in 48 hours. 08/06/22 14:25 Blood Culture (Wb) - Left Wrist Blood Culture - Preliminary No growth in 48 hours. 08/06/22 15:10 Nasal Secretion SARS-CoV-2 & FLU Antigen (Rapid) - Final Physical Exam Const Orientation / Consciousness: confused and lethargic Resp clear to auscultation bilaterally Cardio Cardio Narrative: paced Rhythm: abnormal rhythm irregularly irregular GI non-tender and non-distended GI Narrative: obese Auscultation: normoactive bowel sounds Palpation: soft Extremity no clubbing, cyanosis or edema Skin Skin Narrative: hyperpigmented skin Assessment & Plan Assessment/Plan (1) End-stage renal disease on hemodialysis: PLAN: Dialysis tomorrow then MWF schedule in hospital. (2) Hypotension: PLAN: pressor support. 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 Recent hospitalization for NST KELLEN with transfer to tertiary care at [facility] [place]. No intervention done per pt. (7) UTI (urinary tract infection): PLAN: Antibiotics with renal dosing (8) Altered mental status: QUALIFIERS: Altered mental status type: unspecified Qualified Code(s): R41.82 - Altered mental status, unspecified PLAN: Mentation back to baseline. Patient with developmental delay at baseline (9) Anemia: PLAN: Hemoglobin stable 10.2
--- NOTE | 2022-08-08 14:38 | PN.HOSP_ITS ---
Subjective Subjective Follow-up for septic shock. Patient is Levophed vasopressor at 10 mics per minute. There were several attempts of central line in IJ by nighttime hospitalist and card cutter helper (patient has scar tissue neck from previous central lines and were unsuccessful. Currently getting Levophed through peripheral line. Objective Data Objective Data Vital Signs: Vital Signs Temp Pulse Resp BP Pulse Ox O2 Del Method O2 Flow Rate 97.6 F L 80 18 104/66 94 Room Air 4 08/08/22 04:00 08/08/22 12:00 08/08/22 08:00 08/08/22 07:00 08/08/22 07:00 08/08/22 08:00 08/07/22 12:55 FiO2 92 08/08/22 08:00 Oxygen Flow Rate (L/min) 4 Oxygen Delivery Method Room Air Weight: 272 lb 0.807 oz Body Mass Index (BMI) 38.0 Intake & Output: Intake and Output for Last 24 Hours 08/06/22 08/07/22 08/08/22 23:59 23:59 23:59 Intake Total 2642.87 / 2647.57 810.67 / 825.67 333.67 / 333.67 Output Total 450 / 450 150 / 200 75 / 75 Balance 2192.87 / 2197.57 660.67 / 625.67 258.67 / 258.67 Lab / Micro Data Result Diagrams: 08/08/22 04:17 08/08/22 04:17 Labs: Laboratory Results - last 24 hr 08/07/22 17:06: POC Glucose 97 08/07/22 21:52: POC Glucose 117 H 08/08/22 04:17: WBC 9.5, RBC 3.54 L, Hgb 10.3 L, Hct 35.9 L, MCV 101.4 H, MCH 29.1, MCHC 28.7 L D, RDW Std Deviation 72.6 H, RDW Coeff of Jeffrey 19.7 H, Plt Count 86 L, MPV 11.6, Immature Gran % (Auto) 3.900 H, Neut % (Auto) 68.3, Lymph % (Auto) 15.3 L, Davison % (Auto) 7.5, Eos % (Auto) 4.0, Baso % (Auto) 1.0, Absolute Neuts (auto) 6.5, Absolute Lymphs (auto) 1.45, Nucleated RBC % 0.3, Differential Comment SCANNED, Ovalocytes RARE 08/08/22 04:17: Sodium 140, Potassium 3.3 L, Chloride 108 H, Carbon Dioxide 23.0, Anion Gap 9, BUN 37 H, Creatinine 8.66 H*, Estim Creat Clear Calc 9.30, Est GFR (MDRD) Af Amer 8 L, Est GFR (MDRD) Non-Af 7 L, BUN/Creatinine Ratio 4.3 L, Glucose 113 H, Calcium 7.1 L 08/08/22 11:01: POC Glucose 146 H Micro: Microbiology 08/06/22 17:25 Urine Catheter - Barnes Urine Culture - Preliminary Gram negative silvia 08/06/22 14:18 Blood Culture (Wb) - Anticubital Left Blood Culture - Preliminary No growth in 48 hours. 08/06/22 14:25 Blood Culture (Wb) - Left Wrist Blood Culture - Preliminary No growth in 48 hours. 08/06/22 15:10 Nasal Secretion SARS-CoV-2 & FLU Antigen (Rapid) - Final Physical Exam Narrative Physical exam General: Awake, did not recognize me although was spent good time in explaining yesterday. Difficult to comprehend. HEENT: Atraumatic, PERRLA, EOMI, Normocephalic Oral: Oral mucosa moist. No Gingival or Mucosal Lesions/ Ulcerations Neck: Supple, No JVD, Negative Carotid Bruits Lungs: Air entry diminished in bilateral lung bases. No crepitation/rhonchi Cardiovascular: Paced rhythm. Normal S1, Normal S2, No murmurs Abdomen: Bowel Sounds Present, Soft, Non Tender, Non-Distended : Purulent urine in the Barnes catheter. No scrotal ulcer. No renal angle tenderness. No suprapubic tenderness. Extremities: Bilateral 2+ edema, Capillary Refill Less than 3 Seconds Skin: Scab, bruises on lower legs especially on LLE. Venous dermatitis changes with grayish discoloration. Musculoskeletal: No Tenderness to Palpation of Joints or Extremities Neurological: Cranial nerves II-XII grossly intact, DTR 2+/4 and Symmetrical, Neuro grossly intact Psych/Mental Status: Disorganized and bizarre behavior, Assessment & Plan Assessment/Plan (1) Acute uremia: PLAN: Patient was having myoclonic activity at the time of admission. Patient's creatinine is 18.5. Discussed with a nurse at [facility] and patient did have dialysis on the but it was incomplete dialysis. Patient gets dialysis Thursday and Thursday. Web Page Developer is consulted. Continue with Cinalcalcet, sevelamer. (2) Altered mental status: QUALIFIERS: Altered mental status type: unspecified Qualified Code(s): R41.82 - Altered mental status, unspecified PLAN: Discussed with the nurse at [facility] see patient has been having behavioral issues while at the facility. Patient will throw himself onto the ground and t charles was spreading feces on the wall. Further nursing started since it was intentional. This appears to be more of a chronic process but the patient smearing feces on the wall today was new thing. Consult mental crisis evaluation and patient is medically stable. (3) UTI (urinary tract infection): (4) Septic shock: PLAN: 61-year-old male patient was brought to ED by EMS from [facility] for evaluation of abnormal behavior. As per nursing staff patient required psychiatric pl acement. He denied any chest pain or abdominal pain. during admission patient was found to be hypotensive SBP 67/40. In ED, patient was given IV fluid bolus and hydrocortisone initially admitted in ICU but subsequently patient was found in septic shock and admitted in ICU. Patient states his blood pressure usually runs low around 110 systolic to 90 systolic. 1. Septic shock secondary to UTI: The patient presented with sepsis due to UTI/genitourinary infection with acute sepsis-related organ dysfunction as evidenced by persistent hypotension requiring Levophed/vasopressor, metabolic encephalopathy. CT abdomen pelvis shows bilateral hydronephroureter due to bilateral renal staghorn calculi. Bladder wall thickened, partially contracted. Fluid balloon inflated in the prostatic urethra. No PE.. Urologist is consulted. Patient received aztreonam in the emergency room. Patient does have a history of Proteus mirabilis but is been sensitive to ceftriaxone in the past and will continue with ceftriaxone for now. Patient has an allergy to amoxicillin Follow-up cultures and adjust antibiotics accordingly. Preliminary urine culture shows gram-negative silvia. 08/08: Patient is on vasopressor. Continue IV antibiotics. Urine culture preliminary growing gram-negative rods. Microbiology Past 72 Hours 08/06/22 17:25 Urine Catheter - Barnes Urine Culture - Preliminary Gram negative silvia 08/06/22 14:18 Blood Culture (Wb) - Anticubital Left Blood Culture - Preliminary No growth in 48 hours. 08/06/22 14:25 Blood Culture (Wb) - Left Wrist Blood Culture - Preliminary No growth in 48 hours. 08/06/22 15:10 Nasal Secretion SARS-CoV-2 & FLU Antigen (Rapid) - Final Laboratory Results 08/07/22 17:06: POC Glucose 97 08/07/22 21:52: POC Glucose 117 H 08/08/22 04:17: WBC 9.5, RBC 3.54 L, Hgb 10.3 L, Hct 35.9 L, MCV 101.4 H, MCH 29.1, MCHC 28.7 L D, RDW Std Deviation 72.6 H, RDW Coeff of Jeffrey 19.7 H, Plt Count 86 L, MPV 11.6, Immature Gran % (Auto) 3.900 H, Neut % (Auto) 68.3, Lymph % (Auto) 15.3 L, Davison % (Auto) 7.5, Eos % (Auto) 4.0, Baso % (Auto) 1.0, Absolute Neuts (auto) 6.5, Absolute Lymphs (auto) 1.45, Nucleated RBC % 0.3, D ifferential Comment SCANNED, Ovalocytes RARE 08/08/22 04:17: Sodium 140, Potassium 3.3 L, Chloride 108 H, Carbon Dioxide 23.0 , Anion Gap 9, BUN 37 H, Creatinine 8.66 H*, Estim Creat Clear Calc 9.30, Est GFR (MDRD) Af Amer 8 L, Est GFR (MDRD) Non-Af 7 L, BUN/Creatinine Ratio 4.3 L, Glucose 113 H, Calcium 7.1 L 08/08/22 11:01: POC Glucose 146 H PLAN: Plan Chronic conditions * Diabetes mellitus type 2: Continue with Sitagliptin add sliding scale insulin * Hyperlipidemia: Continue with statin * History of CHF: Appears compensated this time. Hold carvedilol and valsartan for now given hypotension * CAD: Stable. Continue with aspirin and atorvastatin. * Hypertension: Carvedilol and valsartan held on account of the hypotension * Morbid obesity: Complicates care and overall recovery. Patient would be a poor candidate for bariatric evaluation given concerns with compliance * Anemia of chronic disease: Stable. Monitor. No need for transfusion at this time. VTE prophylaxis with subcu heparin CODE STATUS from the [facility] forms. Patient is full code. Charges/Coding Visit Charges Inpatient E&M: 13383 Subs Hosp L3
[2022-08-08 17:15] LABS: Bedside Glucose 113 mg/dL (74-106)
[2022-08-08] MEDS: Atorvastatin Calcium 80 MG Tablet PO (20:52)
[2022-08-08] MEDS: Mupirocin Ointment 22gm Tube 1 APPLIC TOPICAL (20:52)
[2022-08-08] MEDS: Latanoprost 0.005% 1 Bottle 1 DRP EACH EYE (20:52)
[2022-08-08 21:20] LABS: Bedside Glucose 119 mg/dL (74-106)
[2022-08-09] VITALS (51 sets, daily range): BP systolic 82–144; BP diastolic 48–116; PULSE 90–112; RESP 16–108; TEMP 36.3–37.1; O2SAT 90–100
--- NOTE | 2022-08-09 06:17 | PCM.PN.INT ---
Assessment & Plan Assessment/Plan (1) Septic shock: (2) UTI (urinary tract infection): (3) Altered mental status: QUALIFIERS: Altered mental status type: unspecified Qualified Code(s): R41.82 - Altered mental status, unspecified PLAN: Plan RECOMMENDATIONS: 1. Continue to wean Levophed to maintain a mean arterial pressure at or above 65 mmHg. 2. Continue empiric antimicrobials, pending finalized culture results. 3. Dialysis support per nephrology recommendations. 4. Encourage incentive spirometer use and mobilize patient as tolerated. 5. Continue appropriate DVT prophylaxis. IMPRESSIONS: 1. Septic shock secondary to UTI Preliminary urine cultures are demonstrating growth of a gram-negative silvia. The patient remains on appropriate broad-spectrum antimicrobial coverage. Plan to continue to wean Levophed to maintain a mean arterial pressure at or above 65 mmHg. 2. End-stage renal disease with uremia Nephrology is following to assist with hemodialysis needs. 3. Metabolic encephalopathy/delirium Improving. Infection and uremia would be potential etiologies of concern. Continue to avoid sedating medications if feasible. 4. History of A. fib/secondary hyperparathyroidism/anemia of chronic disease/diabetes mellitus/obesity/possible psychiatric issues Complicates care, management, recovery and prognosis. Continue Accu-Cheks and sliding scale insulin coverage. TIME: 31 minutes of critical care time, independent of procedures, was spent addressing the patient's septic shock secondary to UTI, end-stage renal disease, metabolic encephalopathy, review of all data and collaboration with the care team. Subjective Subjective The patient was seen and examined at the bedside this morning. Events from the last 24 hours have been reviewed. The patient remains hemodynamically stable on Levophed at 3 mcg/min. The patient is documented to be overall net +3.9 L for the hospitalization. He has no specific complaints this morning. Objective Data Objective Data The patient's most recent lab work, culture data and imaging studies have all been personally reviewed. Preliminary urine culture dated August 06 was positive for gram-negative rods. Vital Signs: Vital Signs Temp Pulse Resp BP Pulse Ox O2 Del Method O2 Flow Rate 97.3 F L 97 24 H 95/61 97 Room Air 4 08/09/22 00:00 08/09/22 06:00 08/09/22 06:00 08/09/22 06:00 08/09/22 06:00 08/09/22 06:00 08/07/22 12:55 FiO2 28 08/08/22 15:28 Oxygen Flow Rate (L/min) 4 Oxygen Delivery Method Room Air Weight: 272 lb 0.807 oz Body Mass Index (BMI) 38.0 Intake & Output: Intake and Output for Last 24 Hours 08/07/22 08/08/22 08/09/22 23:59 23:59 23:59 Intake Total 810.67 / 825.67 720.03 / 798.83 407.81 / 407.81 Output Total 150 / 200 75 / 85 10 / 10 Balance 660.67 / 625.67 645.03 / 713.83 397.81 / 397.81 Lab / Micro Data Attestation: I reviewed the patient's lab results. Result Diagrams: 08/08/22 04:17 08/08/22 04:17 Labs: Laboratory Results - last 24 hr 08/08/22 11:01: POC Glucose 146 H 08/08/22 16:53: POC Glucose 113 H 08/08/22 20:55: POC Glucose 119 H Micro: Microbiology 08/06/22 17:25 Urine Catheter - Barnes Urine Culture - Preliminary Gram negative silvia 08/06/22 14:18 Blood Culture (Wb) - Anticubital Left Blood Culture - Preliminary No growth in 48 hours. 08/06/22 14:25 Blood Culture (Wb) - Left Wrist Blood Culture - Preliminary No growth in 48 hours. 08/06/22 15:10 Nasal Secretion SARS-CoV-2 & FLU Antigen (Rapid) - Final Physical Exam Const alert and no apparent distress General Appearance: cooperative Nutritional Appearance: obese HEENT normocephalic and head/scalp atraumatic Eyes PERRL, EOMs intact bilaterally and conjunctivae normal Neck supple General: trachea midline Chest inspection of chest normal Resp normal respiratory effort Auscultation: Negative for rales, rhonchi or wheezes Cardio regular rate and regular rhythm GI normal to inspection, nondistended, normoactive bowel sounds Extremity no clubbing, cyanosis or edema Neuro moves all extremities and no focal motor deficits Psych Mood & Affect: flat affect Charges/Coding Procedures Hospitalists Procedures: 29655 Critial Care 1st Hr
--- NOTE | 2022-08-09 07:54 | PCM.PN.HOSP ---
Subjective Subjective Patient is a 61-year-old male with multiple comorbidities including diabetes mellitus type 2 with end-stage renal disease resident at an extended care facility brought in with altered mental status and bizarre behavior. Patient was found to be hypotensive in the ED with systolic blood pressure in the 70s. Patient was also found to have uremia. Urinalysis came back consistent with cystitis and assessment of septic shock made admitted to the intensive care unit for further management Objective Data Objective Data Vital Signs: Vital Signs Temp Pulse Resp BP Pulse Ox O2 Del Method O2 Flow Rate 97.3 F L 94 19 H 97/53 L 97 Room Air 4 08/09/22 00:00 08/09/22 07:00 08/09/22 07:00 08/09/22 07:30 08/09/22 07:00 08/09/22 07:00 08/07/22 12:55 FiO2 28 08/08/22 15:28 Oxygen Flow Rate (L/min) 4 Oxygen Delivery Method Room Air Weight: 123.4 kg Body Mass Index (BMI) 38.0 Intake & Output: Intake and Output for Last 24 Hours 08/07/22 08/08/22 08/09/22 23:59 23:59 23:59 Intake Total 810.67 / 825.67 720.03 / 798.83 814.84 / 814.84 Output Total 150 / 200 75 / 85 30 / 30 Balance 660.67 / 625.67 645.03 / 713.83 784.84 / 784.84 Lab / Micro Data Result Diagrams: 08/08/22 04:17 08/08/22 04:17 Labs: Laboratory Results - last 24 hr 08/08/22 11:01: POC Glucose 146 H 08/08/22 16:53: POC Glucose 113 H 08/08/22 20:55: POC Glucose 119 H Micro: Microbiology 08/06/22 17:25 Urine Catheter - Barnes Urine Culture - Preliminary Gram negative silvia 08/06/22 14:18 Blood Culture (Wb) - Anticubital Left Blood Culture - Preliminary No growth in 48 hours. 08/06/22 14:25 Blood Culture (Wb) - Left Wrist Blood Culture - Preliminary No growth in 48 hours. 08/06/22 15:10 Nasal Secretion SARS-CoV-2 & FLU Antigen (Rapid) - Final Physical Exam Narrative GENERAL: cooperative HEENT: Soft tissue lesion on the right frontal scalp EYES; Anicteric, Normal Conjunctiva NECK; supple, normal thyroid, RESPIRATORY: Diminished to auscultation CARDIOVASCULAR: Regular S1 S2, GI: soft, normoactive bowel sounds, : No Renal angle tenderness; EXTREMITIES: Bilateral stasis dermatitis MUSCULOSKELETAL: no muscle wasting NEURO: Awake; no lateralizing signs. SKIN: No Rash PSYCH; Flat affect Assessment & Plan Assessment/Plan (1) Septic shock: (2) UTI (urinary tract infection): PLAN: Plan Patient is a 61-year-old male with multiple comorbidities including diabetes mellitus type 2 with end-stage renal disease resident at an extended care facility brought in with altered mental status and bizarre behavior. Patient was found to be hypotensive in the ED with systolic blood pressure in the 70s. Patient was also found to have uremia. Urinalysis came back consistent with cystitis and assessment of septic shock made admitted to the intensive care unit for further management 1. Septic shock (present on admission) secondary to acute cystitis patient was managed with broad-spectrum antibiotic therapy IV fluid as well as pressors Levophed and vasopressin. Urine cultures obtained on admission came back positive for Proteus mirabilis. Antibiotic therapy subsequently adjusted 2. End-stage renal disease presenting with uremia ? Patient had myoclonic checks on admission consult placed to nephrology patient has since been managed with dialysis 3. Acute metabolic encephalopathy ? Secondary to #1 #2 plan is to treat underlying condition 4. Diabetes mellitus type 2 with complications including diabetic nephropathy ? Did continue with patient home regimen in addition to Accu-Cheks before meals and at bedtime with sliding scale coverage 5. End-stage renal disease on dialysis on Mondays, Thursday and Thursday ? Consult placed to nephrology for dialysis orders 6. Hypertension - Blood pressure low on admission antihypertensives held on admission 7. BPH ? Patient is on tamsulosin 8. Class II obesity with BMI of 37.9 ? Weight loss advised 9. Anemia - Secondary to chronic disorder monitoring H&H and transfuse if patient becomes symptomatic or hemoglobin falls below 7 10. DVT prophylaxis ? SC heparin . Charges/Coding Visit Charges Inpatient E&M: 61292 Subs Hosp L3
--- NOTE | 2022-08-09 09:48 | PCM.PN.REN ---
Subjective Subjective Seen on dialysis. Remains on pressors. Run even without fluid removal. Mentation at baseline. Objective Data Objective Data Vital Signs: Vital Signs Temp Pulse Resp BP Pulse Ox O2 Del Method O2 Flow Rate 97.7 F L 108 H 108 H 101/81 H 96 Room Air 4 08/09/22 08:15 08/09/22 08:15 08/09/22 08:15 08/09/22 08:15 08/09/22 08:15 08/09/22 08:15 08/07/22 12:55 FiO2 28 08/08/22 15:28 Oxygen Flow Rate (L/min) 4 Oxygen Delivery Method Room Air Weight: 123.4 kg Body Mass Index (BMI) 38.0 Intake & Output: Intake and Output for Last 24 Hours 08/07/22 08/08/22 08/09/22 23:59 23:59 23:59 Intake Total 810.67 / 825.67 720.03 / 798.83 814.84 / 814.84 Output Total 150 / 200 75 / 85 30 / 30 Balance 660.67 / 625.67 645.03 / 713.83 784.84 / 784.84 Lab / Micro Data Result Diagrams: 08/08/22 04:17 08/08/22 04:17 Labs: Laboratory Results - last 24 hr 08/08/22 11:01: POC Glucose 146 H 08/08/22 16:53: POC Glucose 113 H 08/08/22 20:55: POC Glucose 119 H Micro: Microbiology 08/06/22 17:25 Urine Catheter - Barnes Urine Culture - Final Proteus mirabilis 08/06/22 14:18 Blood Culture (Wb) - Anticubital Left Blood Culture - Preliminary No growth in 48 hours. 08/06/22 14:25 Blood Culture (Wb) - Left Wrist Blood Culture - Preliminary No growth in 48 hours. 08/06/22 15:10 Nasal Secretion SARS-CoV-2 & FLU Antigen (Rapid) - Final Physical Exam Const alert and oriented x3 Eyes EOMs intact bilaterally Cardio Cardio Narrative: paced rhythm Rhythm: abnormal rhythm irregularly irregular (tachycardic) and other Neuro Motor Exam: no tremor Psych cooperative Assessment & Plan Assessment/Plan (1) End-stage renal disease on hemodialysis: PLAN: Dialysis today then MWF schedule in hospital. Run even, still on pressors (2) Hypotension: PLAN: pressor support. (3) Diabetes mellitus, type II: QUALIFIERS: Diabetes mellitus buttermaker continuous churn insulin use: unspecified buttermaker continuous churn insulin use status Diabetes mellitus complication status: with skin complications Diabetes mellitus complication detail: with other skin ulcer Qualified Code(s): E11.622 - Type 2 diabetes mellitus with other skin ulcer; L98.499 - Non-pressure chronic ulcer of skin of other sites with unspecified severity (4) Essential hypertension: PLAN: currently hypotensive (5) Morbid obesity: (6) CAD (coronary artery disease): PLAN: With cardiomyopathy, status post pacemaker. Recent hospitalization for NSTEMI with transfer to tertiary care at [facility]. No intervention done per pt. (7) UTI (urinary tract infection): PLAN: Antibiotics with renal dosing (8) Altered mental status: QUALIFIERS: Altered mental status type: unspecified Qualified Code(s): R41.82 - Altered mental status, unspecified PLAN: Mentation back to baseline. Patient with developmental delay at baseline (9) Anemia: PLAN: Hemoglobin stable 10.2 (10) Cardiac abnormality: PLAN: paced rhythm
--- NOTE | 2022-08-09 13:30 | DIALYSIS ---
Hemodialysis complete. 4 hour run, 3k bath. Net fluid removed = 500 ml. Patient tolerated HD tx fairly well. Levophed administered for BP support. Left forearm AVF: Site benign, thrill and bruit present. Needle site pressure held 10 min each. Hemostasis achieved. Report given to primary RN, Butch Cerrato.
[2022-08-09] MEDS: Ceftriaxone 1 GM/50 ML BAG IV (13:54)
[2022-08-09] MEDS: Ammonium Lactate 225 gm Bottle 1 APPLIC TOPICAL ×2 (13:54→21:19)
[2022-08-09] MEDS: Allopurinol 300 MG Tablet 150 MG PO (13:55)
[2022-08-09] MEDS: SEVELAMER CARBONATE 800 MG TABLET 1600 MG PO ×2 (13:55→17:46)
[2022-08-09] MEDS: LINAGLIPTIN 5 MG TABLET PO (13:55)
[2022-08-09] MEDS: Folic Acid/Vitamin B Comp W-C 1 Capsule 1 CAP PO (13:56)
[2022-08-09 14:26] LABS: Bedside Glucose 86 mg/dL (74-106)
[2022-08-09 14:37] LABS: Hematocrit 32.8 % (40-54); Mean Corp Hgb Conc 30.5 g/dL (32-36); Mean Corpuscular Hgb 29.2 pg (27.0-32.0); Mean Corpuscular Volume 95.9 fL (80-94); Mean Platelet Vol. 10.1 fl (6.2-12.0); POSITIVE COUNT YES; POSITIVE MORPHOLOGY YES; Platelet Count 140 K/mm3 (150-450); RBC Distribution Width CV 19.7 % (11.6-14.6); RBC Distribution Width SD 67.4 fl (35.1-43.9); Red Blood Count 3.42 M/mm3 (4.6-6.2); White Blood Count 9.5 K/mm3 (4.4-11.0)
[2022-08-09 14:43] LABS: Differential Indicated MANUAL DIFF
[2022-08-09 15:06] LABS: Lymphocyte 17 % (19-41); Metamyelocyte 2 % (0-1); Monocyte 7 % (0-10); Myelocyte 3 % (0-0); Neutrophil-Segmented 71 % (47-70); Polychromasia 1+; Total Cells Counted 100 (MANUAL DIFF)
[2022-08-09 15:10] LABS: Absolute Lymphocyte Count 1.62 X10^3/uL (0.83-4.51); Absolute Neutrophil Count 6.7 X10^3/uL (2.0-7.7)
[2022-08-09 15:11] LABS: Anisocytosis 1+; Platelet Estimate ADEQUATE (ADEQ)
[2022-08-09 18:06] LABS: Bedside Glucose 96 mg/dL (74-106)
[2022-08-09 20:03] LABS: Anion Gap 8 (5-15); BUN 18 mg/dL (7-18); BUN/Creat Ratio 3.4 RATIO (10-20); Calcium,Total 8.3 mg/dL (8.5-10.1); Chloride 104 mmol/L (98-107); Creatinine, Serum 5.31 mg/dL (0.70-1.30); EST Glomerular Filtration Rate 12 mL/min (>60); Est Glom Filt Rate - Afr Amer 14 mL/min (>60); Estimated Creatinine Clearance 15.17 ml/min; Glucose 95 mg/dL (74-106); Potassium 3.5 mmol/L (3.5-5.1); Sodium Level 140 mmol/L (136-145)
[2022-08-09] MEDS: Latanoprost 0.005% 1 Bottle 1 DRP EACH EYE (21:18)
[2022-08-09] MEDS: Mupirocin Ointment 22gm Tube 1 APPLIC TOPICAL (21:19)
[2022-08-09] MEDS: Heparin Injection (Vial) 5,000 UNIT/ML VIAL 5000 UNIT SC (21:20)
[2022-08-09] MEDS: Atorvastatin Calcium 80 MG Tablet PO (21:20)
[2022-08-10] VITALS (10 sets, daily range): BP systolic 80–132; BP diastolic 60–87; PULSE 82–104; RESP 16–22; TEMP 36.3–36.8; O2SAT 83–100
--- NOTE | 2022-08-10 04:15 | PN.CC_ITS ---
Assessment & Plan Assessment/Plan (1) Septic shock: (2) UTI (urinary tract infection): (3) Altered mental status: QUALIFIERS: Altered mental status type: unspecified Qualified Code(s): R41.82 - Altered mental status, unspecified PLAN: Plan RECOMMENDATIONS: 1. Continue antimicrobials. 2. Dialysis support per nephrology recommendations. 3. Encourage incentive spirometer use and mobilize patient as tolerated. 4. Continue appropriate DVT prophylaxis. 5. Encourage incentive spirometer use and mobilize patient as tolerated. 6. The patient is medically stable for transfer out of the intensive care unit. 7. Will sign off from a critical care perspective. Please call with any additional questions. IMPRESSIONS: 1. Septic shock secondary to UTI Improved. Preliminary urine cultures are demonstrating growth of a gram- negative silvia. The patient remains on appropriate antimicrobial coverage. He has been successfully weaned from vasopressor support and remains hemodynamically stable. 2. End-stage renal disease with uremia Nephrology is following to assist with hemodialysis needs. 3. Metabolic encephalopathy/delirium Improved. Infection and uremia would be potential etiologies of concern. Continue to avoid sedating medications if feasible. 4. History of A. fib/secondary hyperparathyroidism/anemia of chronic disease/diabetes mellitus/obesity/possible psychiatric issues Complicates care, management, recovery and prognosis. Continue Accu-Cheks and sliding scale insulin coverage. This note was generated with [employer] dictation software. It may contain incorrect words, spelling, and punctuation that were not noted in checking the note before signing. Subjective Subjective The patient was seen and examined at the bedside this morning. Events from the last 24 hours have been reviewed. The patient is currently afebrile, hemodynamically stable and maintaining appropriate oxygen saturations on room air. The patient was able to be weaned successfully from Levophed yesterday afternoon. No overnight events were noted by the nursing staff. Objective Data Objective Data The patient's most recent lab work, culture data and imaging studies have all been personally reviewed. Preliminary urine culture dated August 06 was positive for gram-negative rods. Vital Signs: Vital Signs Temp Pulse Resp BP Pulse Ox O2 Del Method O2 Flow Rate 98.7 F 104 H 22 H 144/116 H 96 Room Air 4 08/09/22 20:00 08/09/22 23:00 08/09/22 23:00 08/09/22 23:00 08/09/22 23:00 08/09/22 23:54 08/07/22 12:55 FiO2 28 08/08/22 15:28 Oxygen Flow Rate (L/min) 4 Oxygen Delivery Method Room Air Weight: 272 lb 0.807 oz Body Mass Index (BMI) 38.0 Intake & Output: Intake and Output for Last 24 Hours 08/08/22 08/09/22 08/10/22 23:59 23:59 23:59 Intake Total 720.03 / 798.83 67788066.19 / 51529474.19 Output Total 75 / 85 630 / 630 Balance 645.03 / 713.83 55238309.19 / 64330177.19 Lab / Micro Data Attestation: I reviewed the patient's lab results. Result Diagrams: 08/11/22 05:50 08/11/22 05:50 Labs: Laboratory Results - last 24 hr 08/09/22 14:01: POC Glucose 86 08/09/22 14:30: WBC 9.5, RBC 3.42 L, Hgb 10.0 L, Hct 32.8 L, MCV 95.9 H D, MCH 29.2, MCHC 30.5 L D, RDW Std Deviation 67.4 H, RDW Coeff of Jeffrey 19.7 H, Plt Count 140 L, MPV 10.1, Neut % (Auto) Not Reportable, Absolute Neuts (auto) 6.7, Absolute Lymphs (auto) 1.62, Total Counted 100, Neutrophils % (Manual) 71 H, Lymphocytes % (Manual) 17 L, Monocytes % (Manual) 7, Metamyelocytes % 2 H, Myelocytes % 3 H, Diff Path Review May foll, Platelet Estimate ADEQUATE, Polychromasia 1+, Anisocytosis 1+ 08/09/22 14:30: Sodium 140, Potassium 3.5, Chloride 104, Carbon Dioxide 28.0, Anion Gap 8, BUN 18, Creatinine 5.31 H, Estim Creat Clear Calc 15.17, Est GFR (MDRD) Af Amer 14 L, Est GFR (MDRD) Non-Af 12 L, BUN/Creatinine Ratio 3.4 L, Glucose 95, Calcium 8.3 L 08/09/22 17:45: POC Glucose 96 Micro: Microbiology 08/06/22 17:25 Urine Catheter - Barnes Urine Culture - Final Proteus mirabilis 08/06/22 14:18 Blood Culture (Wb) - Anticubital Left Blood Culture - Preli minary No growth in 48 hours. 08/06/22 14:25 Blood Culture (Wb) - Left Wrist Blood Culture - Preliminary No growth in 48 hours. 08/06/22 15:10 Nasal Secretion SARS-CoV-2 & FLU Antigen (Rapid) - Final Physical Exam Const alert and no apparent distress General Appearance: cooperative Nutritional Appearance: obese HEENT normocephalic and head/scalp atraumatic Eyes PERRL, EOMs intact bilaterally and conjunctivae normal Neck supple General: trachea midline Chest inspection of chest normal Resp normal respiratory effort Auscultation: Negative for rales, rhonchi or wheezes Cardio regular rate and regular rhythm GI normal to inspection, nondistended, normoactive bowel sounds Extremity no clubbing, cyanosis or edema Neuro moves all extremities and no focal motor deficits Psych Mood & Affect: flat affect Charges/Coding Visit Charges Inpatient E&M: 47665 Subs Hosp L3
[2022-08-10] MEDS: 0.9% Saline Lock 10 ML Syringe IV (04:27)
[2022-08-10 04:44] LABS: Hematocrit 31.1 % (40-54); Hemoglobin 9.3 g/dL (13.0-16.5); Mean Corp Hgb Conc 29.9 g/dL (32-36); Mean Corpuscular Hgb 29.3 pg (27.0-32.0); Mean Corpuscular Volume 98.1 fL (80-94); Mean Platelet Vol. 9.4 fl (6.2-12.0); POSITIVE COUNT YES; POSITIVE MORPHOLOGY YES; Platelet Count 103 K/mm3 (150-450); RBC Distribution Width CV 19.6 % (11.6-14.6); RBC Distribution Width SD 68.4 fl (35.1-43.9); Red Blood Count 3.17 M/mm3 (4.6-6.2); White Blood Count 9.2 K/mm3 (4.4-11.0)
[2022-08-10 04:45] LABS: Differential Indicated MANUAL DIFF
[2022-08-10 05:14] LABS: Anion Gap 5 (5-15); BUN 29 mg/dL (7-18); BUN/Creat Ratio 3.9 RATIO (10-20); Chloride 105 mmol/L (98-107); Creatinine, Serum 7.48 mg/dL (0.70-1.30); EST Glomerular Filtration Rate 8 mL/min (>60); Est Glom Filt Rate - Afr Amer 10 mL/min (>60); Estimated Creatinine Clearance 10.77 ml/min; Glucose 99 mg/dL (74-106); Phosphorus 2.4 mg/dL (2.5-4.9); Potassium 3.3 mmol/L (3.5-5.1); Sodium Level 141 mmol/L (136-145)
[2022-08-10 06:25] LABS: Anisocytosis 2+; Macrocytosis 1+; Platelet Estimate SLT DEC (ADEQ)
[2022-08-10 06:28] LABS: Absolute Neutrophil Count 6.2 X10^3/uL (2.0-7.7)
[2022-08-10 06:29] LABS: Absolute Lymphocyte Count 1.85 X10^3/uL (0.83-4.51); Eosinophil 4 % (0-5); Lymphocyte 20 % (19-41); Monocyte 5 % (0-10); Myelocyte 4 % (0-0); Neutrophil-Band 2 % (0-5); Neutrophil-Segmented 65 % (47-70); Total Cells Counted 100 (MANUAL DIFF)
--- NOTE | 2022-08-10 07:21 | PCM.PN.HOSP ---
Subjective Subjective Patient seen much more communicative compared to previous day. Patient has been weaned off pressors. Plan is to transfer patient from the ICU to [facility] floor Objective Data Objective Data Vital Signs: Vital Signs Temp Pulse Resp BP Pulse Ox O2 Del Method O2 Flow Rate 97.9 F 91 22 H 80/69 L 93 Room Air 4 08/10/22 00:00 08/10/22 04:00 08/10/22 04:00 08/10/22 04:00 08/10/22 04:00 08/10/22 04:00 08/07/22 12:55 FiO2 28 08/08/22 15:28 Oxygen Flow Rate (L/min) 4 Oxygen Delivery Method Room Air Weight: 127 kg Body Mass Index (BMI) 38.0 Intake & Output: Intake and Output for Last 24 Hours 08/08/22 08/09/22 08/10/22 23:59 23:59 23:59 Intake Total 720.03 / 798.83 98902117.19 / 30824156.19 Output Total 75 / 85 630 / 630 50 / 50 Balance 645.03 / 713.83 84119295.19 / 57871795.19 -50 / -50 Lab / Micro Data Result Diagrams: 08/10/22 04:25 08/10/22 04:25 Labs: Laboratory Results - last 24 hr 08/09/22 14:01: POC Glucose 86 08/09/22 14:30: WBC 9.5, RBC 3.42 L, Hgb 10.0 L, Hct 32.8 L, MCV 95.9 H D, MCH 29.2, MCHC 30.5 L D, RDW Std Deviation 67.4 H, RDW Coeff of Jeffrey 19.7 H, Plt Count 140 L, MPV 10.1, Neut % (Auto) Not Reportable, Absolute Neuts (auto) 6.7, Absolute Lymphs (auto) 1.62, Total Counted 100, Neutrophils % (Manual) 71 H, Lymphocytes % (Manual) 17 L, Monocytes % (Manual) 7, Metamyelocytes % 2 H, Myelocytes % 3 H, Diff Path Review May , Platelet Estimate ADEQUATE, Polychromasia 1+, Anisocytosis 1+ 08/09/22 14:30: Sodium 140, Potassium 3.5, Chloride 104, Carbon Dioxide 28.0, Anion Gap 8, BUN 18, Creatinine 5.31 H, Estim Creat Clear Calc 15.17, Est GFR (MDRD) Af Amer 14 L, Est GFR (MDRD) Non-Af 12 L, BUN/Creatinine Ratio 3.4 L, Glucose 95, Calcium 8.3 L 08/09/22 17:45: POC Glucose 96 08/10/22 04:25: WBC 9.2, RBC 3.17 L, Hgb 9.3 L, Hct 31.1 L, MCV 98.1 H, MCH 29.3, MCHC 29.9 L, RDW Std Deviation 68.4 H, RDW Coeff of Jeffrey 19.6 H, Plt Count 103 L, MPV 9.4, Neut % (Auto) Not Reportable, Absolute Neuts (auto) 6.2, Absolute Lymphs (auto) 1.85, Total Counted 100, Neutrophils % (Manual) 65, Band Neutrophils % 2, Lymphocytes % (Manual) 20, Monocytes % (Manual) 5, Eosinophils % (Manual) 4, Myelocytes % 4 H, Diff Path Review December, Platelet Estimate SLT DEC, Anisocytosis 2+, Macrocytosis 1+ 08/10/22 04:25: Sodium 141, Potassium 3.3 L, Chloride 105, Carbon Dioxide 31.0, Anion Gap 5, BUN 29 H, Creatinine 7.48 H*, Estim Creat Clear Calc 10.77, Est GFR (MDRD) Af Amer 10 L, Est GFR (MDRD) Non-Af 8 L, BUN/Creatinine Ratio 3.9 L, Glucose 99, Calcium 8.0 L, Phosphorus 2.4 L, Magnesium 2.0 Micro: Microbiology 08/06/22 17:25 Urine Catheter - Barnes Urine Culture - Final Proteus mirabilis 08/06/22 14:18 Blood Culture (Wb) - Anticubital Left Blood Culture - Preliminary No growth in 48 hours. 08/06/22 14:25 Blood Culture (Wb) - Left Wrist Blood Culture - Preliminary No growth in 48 hours. 08/06/22 15:10 Nasal Secretion SARS-CoV-2 & FLU Antigen (Rapid) - Final Physical Exam Narrative GENERAL: cooperative HEENT: Soft tissue lesion on the right frontal scalp EYES; Anicteric, Normal Conjunctiva NECK; supple, normal thyroid, RESPIRATORY: Diminished to auscultation CARDIOVASCULAR: Regular S1 S2, GI: soft, normoactive bowel sounds, : No Renal angle tenderness; EXTREMITIES: Bilateral stasis dermatitis MUSCULOSKELETAL: no muscle wasting NEURO: Awake; no lateralizing signs. SKIN: No Rash PSYCH; Flat affect Assessment & Plan Assessment/Plan (1) Septic shock: (2) UTI (urinary tract infection): PLAN: Plan Patient is a 61-year-old male with multiple comorbidities including diabetes mellitus type 2 with end-stage renal disease resident at an extended care facility brought in with altered mental status and bizarre behavior. Patient was found to be hypotensive in the ED with systolic blood pressure in the 70s. Patient was also found to have uremia. Urinalysis came back consistent with cystitis and assessment of septic shock made admitted to the intensive care unit for further management 1. Septic shock (present on admission) secondary to acute cystitis patient was managed with broad-spectrum antibiotic therapy IV fluid as well as pressors Levophed and vasopressin. Urine cultures obtained on admission came back positive for Proteus mirabilis. Antibiotic therapy subsequently adjusted -08/10/2022; patient seen much more communicative compared to previous day. Patient has been weaned off pressors. Plan is to transfer patient from the ICU to [facility] floor 2. End-stage renal disease presenting with uremia ? Patient had myoclonic checks on admission consult placed to nephrology patient has since been managed with dialysis 3. Acute metabolic encephalopathy ? Secondary to #1 #2 plan is to treat underlying condition ? 08/10/2022 patient level of sensorium improving 4. Diabetes mellitus type 2 with complications including diabetic nephropathy ? Did continue with patient home regimen in addition to Accu-Cheks before meals and at bedtime with sliding scale coverage 5. End-stage renal disease on dialysis on Mondays, Thursday and Thursday ? Consult placed to nephrology for dialysis orders 6. Hypertension - Blood pressure low on admission antihypertensives held on admission 7. BPH ? Patient is on tamsulosin 8. Class II obesity with BMI of 37.9 ? Weight loss advised 9. Anemia - Secondary to chronic disorder monitoring H&H and transfuse if patient becomes symptomatic or hemoglobin falls below 7 10. DVT prophylaxis ? SC heparin 11. Physical deconditioning - Requested for PT OT eval and clinical social work aide to assist with discharge planning . Charges/Coding Visit Charges Inpatient E&M: 40904 Subs Hosp L3
[2022-08-10] MEDS: SEVELAMER CARBONATE 800 MG TABLET 1600 MG PO ×3 (09:24→18:04)
[2022-08-10] MEDS: Aspirin E.C. 81 MG Tablet PO (09:24)
[2022-08-10] MEDS: Heparin Injection (Vial) 5,000 UNIT/ML VIAL 5000 UNIT SC ×2 (09:25→20:34)
[2022-08-10] MEDS: Ammonium Lactate 225 gm Bottle 1 APPLIC TOPICAL ×2 (09:25→20:35)
[2022-08-10] MEDS: LINAGLIPTIN 5 MG TABLET PO (09:27)
[2022-08-10] MEDS: Folic Acid/Vitamin B Comp W-C 1 Capsule 1 CAP PO (09:28)
[2022-08-10 09:41] LABS: Bedside Glucose 106 mg/dL (74-106)
[2022-08-10] MEDS: Allopurinol 300 MG Tablet 150 MG PO (10:48)
[2022-08-10] MEDS: Ceftriaxone 1 GM/50 ML BAG IV (10:49)
[2022-08-10 11:46] LABS: Bedside Glucose 115 mg/dL (74-106)
[2022-08-10 17:15] LABS: Bedside Glucose 119 mg/dL (74-106)
[2022-08-10] MEDS: Mupirocin Ointment 22gm Tube 1 APPLIC TOPICAL (20:34)
[2022-08-10] MEDS: Latanoprost 0.005% 1 Bottle 1 DRP EACH EYE (20:35)
[2022-08-10] MEDS: Atorvastatin Calcium 80 MG Tablet PO (20:35)
--- NOTE | 2022-08-10 23:48 | NURSING ---
Patient refused blood sugar check
[2022-08-11 03:14] VITALS: BP 118/72; PULSE 100; RESP 16; TEMP 36.8; O2SAT 98
[2022-08-11 06:26] LABS: Hematocrit 30.9 % (40-54); Hemoglobin 9.6 g/dL (13.0-16.5); Mean Corp Hgb Conc 31.1 g/dL (32-36); Mean Corpuscular Hgb 30.1 pg (27.0-32.0); Mean Corpuscular Volume 96.9 fL (80-94); Mean Platelet Vol. 9.6 fl (6.2-12.0); POSITIVE COUNT YES; POSITIVE MORPHOLOGY YES; Platelet Count 100 K/mm3 (150-450); RBC Distribution Width CV 19.3 % (11.6-14.6); RBC Distribution Width SD 67.2 fl (35.1-43.9); Red Blood Count 3.19 M/mm3 (4.6-6.2); White Blood Count 9.3 K/mm3 (4.4-11.0)
[2022-08-11 06:35] LABS: Differential Indicated MANUAL DIFF
[2022-08-11 06:46] LABS: Bedside Glucose 97 mg/dL (74-106)
[2022-08-11 07:07] LABS: Anion Gap 10 (5-15); BUN 42 mg/dL (7-18); BUN/Creat Ratio 4.3 RATIO (10-20); Calcium,Total 8.4 mg/dL (8.5-10.1); Chloride 102 mmol/L (98-107); Creatinine, Serum 9.72 mg/dL (0.70-1.30); EST Glomerular Filtration Rate 6 mL/min (>60); Est Glom Filt Rate - Afr Amer 7 mL/min (>60); Estimated Creatinine Clearance 8.28 ml/min; Glucose 95 mg/dL (74-106); Potassium 3.6 mmol/L (3.5-5.1); Sodium Level 139 mmol/L (136-145)
[2022-08-11 07:09] LABS: Anisocytosis 2+; Macrocytosis 1+; Platelet Estimate MOD DEC (ADEQ)
[2022-08-11 07:12] LABS: Absolute Lymphocyte Count 2.14 X10^3/uL (0.83-4.51); Absolute Neutrophil Count 5.3 X10^3/uL (2.0-7.7); Atypical Lymphocyte 1+ %; Eosinophil 5 % (0-5); Lymphocyte 25 % (19-41); Monocyte 6 % (0-10); Myelocyte 6 % (0-0); Neutrophil-Band 3 % (0-5); Neutrophil-Segmented 54 % (47-70); Promyelocyte 1 % (0-0); Total Cells Counted 100 (MANUAL DIFF)
[2022-08-11] MEDS: Ammonium Lactate 225 gm Bottle 1 APPLIC TOPICAL (08:57)
[2022-08-11] MEDS: Aspirin E.C. 81 MG Tablet PO (08:57)
[2022-08-11] MEDS: SEVELAMER CARBONATE 800 MG TABLET 1600 MG PO (08:57)
[2022-08-11] MEDS: Heparin Injection (Vial) 5,000 UNIT/ML VIAL 5000 UNIT SC (08:57)
[2022-08-11] MEDS: Folic Acid/Vitamin B Comp W-C 1 Capsule 1 CAP PO (08:58)
[2022-08-11] MEDS: LINAGLIPTIN 5 MG TABLET PO (08:59)
[2022-08-11] MEDS: Allopurinol 300 MG Tablet 150 MG PO (08:59)
--- NOTE | 2022-08-11 09:01 | PN.HOSP_ITS ---
Subjective Subjective Patient seen blood pressure has stabilized. Urine cultures came back positive for Proteus on appropriate antibiotic therapy. Plan is for patient to be assessed for possible discharge back to [facility] on cefdinir Objective Data Objective Data Vital Signs: Vital Signs Temp Pulse Resp BP Pulse Ox O2 Del Method O2 Flow Rate 98.2 F 100 16 118/72 98 Room Air 4 08/11/22 03:14 08/11/22 03:14 08/11/22 03:14 08/11/22 03:14 08/11/22 03:14 08/11/22 03:37 08/07/22 12:55 FiO2 28 08/08/22 15:28 Oxygen Flow Rate (L/min) 4 Oxygen Delivery Method Room Air Weight: 126.7 kg Body Mass Index (BMI) 38.0 Intake & Output: Intake and Output for Last 24 Hours 08/09/22 08/10/22 08/11/22 23:59 23:59 23:59 Intake Total 28163546.19 / 83633261.19 850 / 950 220 / 220 Output Total 630 / 630 50 / 100 100 / 100 Balance 12088722.19 / 04795937.19 800 / 850 120 / 120 Lab / Micro Data Result Diagrams: 08/11/22 05:50 08/11/22 05:50 Labs: Laboratory Results - last 24 hr 08/10/22 09:16: POC Glucose 106 08/10/22 11:25: POC Glucose 115 H 08/10/22 16:03: POC Glucose 119 H 08/11/22 05:16: POC Glucose 97 08/11/22 05:50: WBC 9.3, RBC 3.19 L, Hgb 9.6 L, Hct 30.9 L, MCV 96.9 H, MCH 30.1, MCHC 31.1 L, RDW Std Deviation 67.2 H, RDW Coeff of Jeffrey 19.3 H, Plt Count 100 L, MPV 9.6, Neut % (Auto) Not Reportable, Absolute Neuts (auto) 5.3, Absolute Lymphs (auto) 2.14, Total Counted 100, Neutrophils % (Manual) 54, Band Neutrophils % 3, Lymphocytes % (Manual) 25, Monocytes % (Manual) 6, Eosinophils % (Manual) 5, Myelocytes % 6 H, Promyelocytes % 1 H, Diff Path Review May foll, Atypical Lymphocytes 1+, Platelet Estimate MOD DEC, Anisocytosis 2+, Macrocytosis 1+ 08/11/22 05:50: Sodium 139, Potassium 3.6, Chloride 102, Carbon Dioxide 27.0, Anion Gap 10, BUN 42 H, Creatinine 9.72 H*, Estim Creat Clear Calc 8.28, Est GFR (MDRD) Af Amer 7 L, Est GFR (MDRD) Non-Af 6 L, BUN/Creatinine Ratio 4.3 L, Glucose 95, Calcium 8.4 L Micro: Microbiology 08/06/22 17:25 Urine Catheter - Barnes Urine Culture - Final Proteus mirabilis 08/06/22 14:18 Blood Culture (Wb) - Anticubital Left Blood Culture - Preliminary No growth in 48 hours. 08/06/22 14:25 Blood Culture (Wb) - Left Wrist Blood Culture - Preliminary No growth in 48 hours. 08/06/22 15:10 Nasal Secretion SARS-CoV-2 & FLU Antigen (Rapid) - Final Physical Exam Narrative GENERAL: cooperative HEENT: Soft tissue lesion on the right frontal scalp EYES; Anicteric, Normal Conjunctiva NECK; supple, normal thyroid, RESPIRATORY: Diminished to auscultation CARDIOVASCULAR: Regular S1 S2, GI: soft, normoactive bowel sounds, : No Renal angle tenderness; EXTREMITIES: Bilateral stasis dermatitis MUSCULOSKELETAL: no muscle wasting NEURO: Awake; no lateralizing signs. SKIN: No Rash PSYCH; Flat affect Assessment & Plan Assessment/Plan (1) Septic shock: (2) UTI (urinary tract infection): PLAN: Plan Patient is a 61-year-old male with multiple comorbidities including diabetes mellitus type 2 with end-stage renal disease resident at an extended care facility brought in with altered mental status and bizarre behavior. Patient was found to be hypotensive in the ED with systolic blood pressure in the 70s. Patient was also found to have uremia. Urinalysis came back consistent with cystitis and assessment of septic shock made admitted to the intensive care unit for further management 1. Septic shock (present on admission) secondary to acute cystitis patient was managed with broad-spectrum antibiotic therapy IV fluid as well as pressors Levophed and vasopressin. Urine cultures obtained on admission came back positive for Proteus mirabilis. Antibiotic therapy subsequently adjusted -08/10/2022; patient seen much more communicative compared to previous day. Patient has been weaned off pressors. Plan is to transfer patient from the ICU to [facility] floor -08/11/2022; Patient seen blood pressure has stabilized. Urine cultures came back positive for Proteus on appropriate antibiotic therapy. Plan is for patient to be assessed for possible discharge back to [facility] on cefdinir 2. End-stage renal disease presenting with uremia ? Patient had myoclonic checks on admission consult placed to nephrology patient has since been managed with dialysis 3. Acute metabolic encephalopathy ? Secondary to #1 #2 plan is to treat underlying condition ? 08/10/2022 patient level of sensorium improving 4. Diabetes mellitus type 2 with complications including diabetic nephropathy ? Did continue with patient home regimen in addition to Accu-Cheks before meals and at bedtime with sliding scale coverage 5. End-stage renal disease on dialysis on Mondays, Thursday and Thursday ? Consult placed to nephrology for dialysis orders 6. Hypertension - Blood pressure low on admission antihypertensives held on admission 7. BPH ? Patient is on tamsulosin 8. Class II obesity with BMI of 37.9 ? Weight loss advised 9. Anemia - Secondary to chronic disorder monitoring H&H and transfuse if patient becomes symptomatic or hemoglobin falls below 7 10. DVT prophylaxis ? SC heparin 11. Physical deconditioning - Requested for PT OT eval and high school social science teacher to assist with discharge planning . Charges/Coding Visit Charges Inpatient E&M: 66667 Subs Hosp L2
--- NOTE | 2022-08-11 09:02 | TREXTCAR_ITS ---
Diet Diet Order/Speech Therapy: 08/07/22 10:43 Diet: Renal - ConsCHO - Alvin Cont Is pt able to select menu?: No How many daily calories?: 2200 calorie Wound(s) left forearm and hand: Wound Type: Scabs left lower leg: Wound Type: Skin Tear Therapies Physical Therapy: Eval and Treat Occupational Therapy: Eval and Treat Problem/Diagnosis (1) Septic shock: Status: Acute Code(s): A41.9 - Sepsis, unspecified organism; R65.21 - Severe sepsis with septic shock (2) UTI (urinary tract infection): Status: Acute Code(s): N39.0 - Urinary tract infection, site not specified Plan Patient is a 61-year-old male with multiple comorbidities including diabetes mellitus type 2 with end-stage renal disease resident at an extended care facility brought in with altered mental status and bizarre behavior. Patient was found to be hypotensive in the ED with systolic blood pressure in the 70s. Patient was also found to have uremia. Urinalysis came back consistent with cystitis and assessment of septic shock made admitted to the intensive care unit for further management 1. Septic shock (present on admission) secondary to acute cystitis patient was managed with broad-spectrum antibiotic therapy IV fluid as well as pressors Levophed and vasopressin. Urine cultures obtained on admission came back positive for Proteus mirabilis. Antibiotic therapy subsequently adjusted -08/10/2022; patient seen much more communicative compared to previous day. Patient has been weaned off pressors. Plan is to transfer patient from the ICU to [facility] floor 2. End-stage renal disease presenting with uremia ? Patient had myoclonic checks on admission consult placed to nephrology patient has since been managed with dialysis 3. Acute metabolic encephalopathy ? Secondary to #1 #2 plan is to treat underlying condition ? 08/10/2022 patient level of sensorium improving 4. Diabetes mellitus type 2 with complications including diabetic nephropathy ? Did continue with patient home regimen in addition to Accu-Cheks before meals and at bedtime with sliding scale coverage 5. End-stage renal disease on dialysis on Mondays, Thursday and Thursday ? Consult placed to nephrology for dialysis orders 6. Hypertension - Blood pressure low on admission antihypertensives held on admission 7. BPH ? Patient is on tamsulosin 8. Class II obesity with BMI of 37.9 ? Weight loss advised 9. Anemia - Secondary to chronic disorder monitoring H&H and transfuse if patient becomes symptomatic or hemoglobin falls below 7 10. DVT prophylaxis ? SC heparin 11. Physical deconditioning - Requested for PT OT eval and social media marketing specialist to assist with discharge planning . Allergies/Procedures Done in Hospital Allergies aluminum Allergy (Verified 08/06/22 12:53) PT UNSURE OF REACTION amoxicillin [From Augmentin] Allergy (Verified 08/06/22 12:53) PT UNSURE OF REACTION clavulanic acid [From Augmentin] Allergy (Verified 08/06/22 12:53) PT UNSURE OF REACTION Type of Care/Length of Stay Estimated LOS: More Than 30 Days Type of Care Needed: Intermediate Rehab Potential: Good Prognosis: Good Additional Orders/Day of Discharge Day of Discharge: 08/11/22 Dietary and Speech Recommendations Dietitian Recommendations/Changes: Continue renal, 2200 calorie controlled/consistent CHO; ONS pending PO intake at meals. Discharge Plan Admission Admit Date/Time: 08/06/22 19:48 Attending Provider: Ernesto Akins Primary Care Provider: Janene Griffin Consulting Providers: Chevy Jeffries ; Amish Erwni ; Madi Graves ; Omaira Chavez ; Nile Sow Discharge Orders/Prescriptions Prescriptions: New cefdinir 300 mg capsule 300 mg PO BID Qty: 14 0RF Continued tamsulosin 0.4 mg capsule 0.4 mg PO QHS sevelamer carbonate 800 mg tablet 1,600 mg PO TIDCM allopurinol 300 MG tablet 150 mg PO DAILY latanoprost 1 DROP bottle 1 drp EACH EYE QHS atorvastatin 80 mg Tablet 80 mg PO QHS ammonium lactate 12 % Lotion 1 applic TOPICAL BID Rx Instructions: APPLT 1 APPLICATION TOPICALLY TO BILATERAL LOWER EXT TWO TIMES A DAY FOR SEVERELY DRY SKIN pollens extract Tablet 1 tab PO BID aspirin 81 mg Tablet,Delayed Release (Dr/Ec) 81 mg PO DAILY aluminum-magnesium hydroxide 225-200 mg/5 mL Suspension 30 ml PO Q4H PRN (Reason: Acid Reflux) mupirocin 2 % Ointment 1 applic TOPICAL QHS Rx Instructions: APPLY 1 APPLICATION TO LEFT FOREARM AND FINGER TOPICALLY EVERY NIGHT FOR WOUND HEALING B complex with C 20-folic acid 1 mg Capsule 1 cap PO DAILY cinacalcet 60 mg Tablet 60 mg PO MOTUWEFR Januvia 25 mg Tablet 25 mg PO DAILY acetaminophen [Tylenol] 325 mg tablet 1,300 mg PO Q4H PRN (Reason: Pain) Changed carvedilol 25 mg tablet 12.5 mg PO BID 1 Days Qty: 1 0RF Rx Instructions: Hold for systolic blood pressure less than 120 and heart rate less than 50 Discontinued valsartan 40 mg Tablet 40 mg PO BID Referrals / Follow Up: Janene Griffin MD [Primary Care Provider] - Juany Wylie MD [Med Staff - [employer]] - Disposition Disposition (needs filled in before D/C Order can be placed): Alf Facility
--- NOTE | 2022-08-11 09:11 | DS.PCM_ITS ---
Providers Date of Admission: 08/06/22 Date of Discharge: 08/11/22 Primary Care Physician: Dr. Janene Griffin MD Consultations 08/06/22 20:24 Consult: Nephrology Routine Consulting Provider: Omaira Chavez Reason for Consult: dialysis EMERGENT Consult: No Notified: Yes Date Notified: 08/06/22 Time Notified: 19:54 Method of Notification: Text 08/07/22 06:17 Consult: .Net Programmer / Pulmonary Medicine Routine Consulting Provider: Madi Graves Reason for Consult: hypotension EMERGENT Consult: No Notified: Yes Date Notified: 08/07/22 Time Notified: 06:17 Method of Notification: Verbal 08/07/22 11:02 Consult: Urology Routine Consulting Provider: Nile Sow Reason for Consult: B/L Hydronephroureter with stag horn calculi EMERGENT Consult: No Notified: Yes Date Notified: 08/07/22 Time Notified: 11:02 Method of Notification: Text Reason For Visit: UTI, HYPOTENSION Diagnosis Discharge Diagnosis (1) Septic shock: Status: Acute Code(s): A41.9 - Sepsis, unspecified organism; R65.21 - Severe sepsis with septic shock (2) UTI (urinary tract infection): Status: Acute Code(s): N39.0 - Urinary tract infection, site not specified Plan Patient is a 61-year-old male with multiple comorbidities including diabetes mellitus type 2 with end-stage renal disease resident at an [facility] care facility brought in with altered mental status and bizarre behavior. Patient was found to be hypotensive in the ED with systolic blood pressure in the 70s. Patient was also found to have uremia. Urinalysis came back consistent with cystitis and assessment of septic shock made admitted to the intensive care unit for further management 1. Septic shock (present on admission) secondary to acute cystitis patient was managed with broad-spectrum antibiotic therapy IV fluid as well as pressors Levophed and vasopressin. Urine cultures obtained on admission came back positive for Proteus mirabilis. Antibiotic therapy subsequently adjusted -08/10/2022; patient seen much more communicative compared to previous day. Patient has been weaned off pressors. Plan is to transfer patient from the ICU to [facility] -08/11/2022; Patient seen blood pressure has stabilized. Urine cultures came back positive for Proteus on appropriate antibiotic therapy. Plan is for patient to be assessed for possible discharge back to [facility] on cefdinir 2. End-stage renal disease presenting with uremia ? Patient had myoclonic checks on admission consult placed to nephrology patient has since been managed with dialysis 3. Acute metabolic encephalopathy ? Secondary to #1 #2 plan is to treat underlying condition ? 08/10/2022 patient level of sensorium improving 4. Diabetes mellitus type 2 with complications including diabetic nephropathy ? Did continue with patient home regimen in addition to Accu-Cheks before meals and at bedtime with sliding scale coverage 5. End-stage renal disease on dialysis on Mondays, Thursday and Thursday ? Consult placed to nephrology for dialysis orders 6. Hypertension - Blood pressure low on admission antihypertensives held on admission 7. BPH ? Patient is on tamsulosin 8. Class II obesity with BMI of 37.9 ? Weight loss advised 9. Anemia - Secondary to chronic disorder monitoring H&H and transfuse if patient becomes symptomatic or hemoglobin falls below 7 10. DVT prophylaxis ? SC heparin 11. Physical deconditioning - Requested for PT OT eval and social insurance specialist to assist with discharge planning . Medications at Discharge Home Medications allopurinol 300 mg tablet 150 mg PO DAILY GOUT 01/27/16 latanoprost 0.005 % eye drops 1 drp EACH EYE QHS GLAUCOMA 12/23/18 tamsulosin 0.4 mg capsule 0.4 mg PO QHS PROSTATE 06/21/19 sevelamer carbonate 800 mg tablet 1,600 mg PO TIDCM KIDNEY DISEASE 03/26/22 acetaminophen 325 mg tablet (Tylenol) 1,300 mg PO Q4H PRN Pain 08/06/22 aluminum-magnesium hydroxide 225 mg-200 mg/5 mL oral suspension 30 ml PO Q4H PRN Acid Reflux 08/06/22 ammonium lactate 12 % lotion 1 applic topical BID SEVERE DRY SKIN 08/06/22 aspirin 81 mg tablet,delayed release 81 mg PO DAILY HEART HEALTH 08/06/22 atorvastatin 80 mg tablet 80 mg PO QHS CHOLESTEROL 08/06/22 cinacalcet 60 mg tablet 60 mg PO MOTUWEFR SUPPLEMENT 08/06/22 mupirocin 2 % topical ointment 1 applic topical QHS WOUND HEALING 08/06/22 pollens extract 1 tab PO BID SUPPLEMENT 08/06/22 sitagliptin phosphate 25 mg tablet (Januvia) 25 mg PO DAILY 08/06/22 vitamin B complex and vitamin C no.20-folic acid 1 mg capsule 1 cap PO DAILY SUPPLEMENT 08/06/22 carvedilol 25 mg tablet 12.5 mg PO BID HEART 1 day #1 TAB 08/11/22 cefdinir 300 mg capsule 300 mg PO BID #14 caps 08/11/22 Hospital Course Operations None Summary of Care Provided Minutes Spent on Discharge: 35 Physical Exam Narrative GENERAL: cooperative HEENT: Soft tissue lesion on the right frontal scalp EYES; Anicteric, Normal Conjunctiva NECK; supple, normal thyroid, RESPIRATORY: Diminished to auscultation CARDIOVASCULAR: Regular S1 S2, GI: soft, normoactive bowel sounds, : No Renal angle tenderness; EXTREMITIES: Bilateral stasis dermatitis MUSCULOSKELETAL: no muscle wasting NEURO: Awake; no lateralizing signs. SKIN: No Rash PSYCH; Flat affect Weight / BMI Weight Weight: 126.7 kg Body Mass Index (BMI) 38.0 ABG / Lab / Microbiology Data Result Diagrams: 08/11/22 05:50 08/11/22 05:50 Laboratory: Laboratory Results - last 24 hr 08/10/22 09:16: POC Glucose 106 08/10/22 11:25: POC Glucose 115 H 08/10/22 16:03: POC Glucose 119 H 08/11/22 05:16: POC Glucose 97 08/11/22 05:50: WBC 9.3, RBC 3.19 L, Hgb 9.6 L, Hct 30.9 L, MCV 96.9 H, MCH 30.1, MCHC 31.1 L, RDW Std Deviation 67.2 H, RDW Coeff of Jeffrey 19.3 H, Plt Count 100 L, MPV 9.6, Neut % (Auto) Not Reportable, Absolute Neuts (auto) 5.3, Absolute Lymphs (auto) 2.14, Total Counted 100, Neutrophils % (Manual) 54, Band Neutrophils % 3, Lymphocytes % (Manual) 25, Monocytes % (Manual) 6, Eosinophils % (Manual) 5, Myelocytes % 6 H, Promyelocytes % 1 H, Diff Path Review May foll, Atypical Lymphocytes 1+, Platelet Estimate MOD DEC, Anisocytosis 2+, Macrocytosis 1+ 08/11/22 05:50: Sodium 139, Potassium 3.6, Chloride 102, Carbon Dioxide 27.0, Anion Gap 10, BUN 42 H, Creatinine 9.72 H*, Estim Creat Clear Calc 8.28, Est GFR (MDRD) Af Amer 7 L, Est GFR (MDRD) Non-Af 6 L, BUN/Creatinine Ratio 4.3 L, Glucose 95, Calcium 8.4 L Microbiology: Microbiology 08/06/22 17:25 Urine Catheter - Barnes Urine Culture - Final Proteus mirabilis 08/06/22 14:18 Blood Culture (Wb) - Anticubital Left Blood Culture - Preliminary No growth in 48 hours. 08/06/22 14:25 Blood Culture (Wb) - Left Wrist Blood Culture - Preliminary No growth in 48 hours. 08/06/22 15:10 Nasal Secretion SARS-CoV-2 & FLU Antigen (Rapid) - Final D/C Instructions Discharge Diet: 1800 Calorie Control Diet Discharge Activity: Return to Normal Activity Call your doctor if you observe: Fever of 101 or Higher, Shortness of breath, Fainting spells and Chest pain Meaningful Use Info Meaningful Use Diagnoses (Choose all that apply): None applicable Discharge Plan Admission Admit Date/Time: 08/06/22 19:48 Attending Provider: Ernesto Akins Primary Care Provider: Janene Griffin Consulting Providers: Chevy Jeffries ; Amish Erwin ; Madi Graves ; Omaira Chavez ; Nile Sow Discharge Orders/Prescriptions Prescriptions: New cefdinir 300 mg capsule 300 mg PO BID Qty: 14 0RF Continued tamsulosin 0.4 mg capsule 0.4 mg PO QHS sevelamer carbonate 800 mg tablet 1,600 mg PO TIDCM allopurinol 300 MG tablet 150 mg PO DAILY latanoprost 1 DROP bottle 1 drp EACH EYE QHS atorvastatin 80 mg Tablet 80 mg PO QHS ammonium lactate 12 % Lotion 1 applic TOPICAL BID Rx Instructions: APPLT 1 APPLICATION TOPICALLY TO BILATERAL LOWER EXT TWO TIMES A DAY FOR SEVERELY DRY SKIN pollens extract Tablet 1 tab PO BID aspirin 81 mg Tablet,Delayed Release (Dr/Ec) 81 mg PO DAILY aluminum-magnesium hydroxide 225-200 mg/5 mL Suspension 30 ml PO Q4H PRN (Reason: Acid Reflux) mupirocin 2 % Ointment 1 applic TOPICAL QHS Rx Instructions: APPLY 1 APPLICATION TO LEFT FOREARM AND FINGER TOPICALLY EVERY NIGHT FOR WOUND HEALING B complex with C 20-folic acid 1 mg Capsule 1 cap PO DAILY cinacalcet 60 mg Tablet 60 mg PO MOTUWEFR Januvia 25 mg Tablet 25 mg PO DAILY acetaminophen [Tylenol] 325 mg tablet 1,300 mg PO Q4H PRN (Reason: Pain) Changed carvedilol 25 mg tablet 12.5 mg PO BID 1 Days Qty: 1 0RF Rx Instructions: Hold for systolic blood pressure less than 120 and heart rate less than 50 Discontinued valsartan 40 mg Tablet 40 mg PO BID Referrals / Follow Up: Janene Griffin MD [Primary Care Provider] - Juany Wylie MD [Med Staff - [facility]] - Disposition Disposition (needs filled in before D/C Order can be placed): [facility] Facility Charges/Coding Visit Charges Inpatient E&M: 09515 Disch Hosp
[2022-08-11 09:41] VITALS: BP 111/66; PULSE 88; RESP 18; TEMP 37.2; O2SAT 97
[2022-08-12 14:00] LABS: Pathologist Review Reviewed
[2022-08-12 14:06] LABS: Pathologist Review Reviewed
[2022-08-12 14:09] LABS: Pathologist Review Reviewed
== END 2022-08-11 10:13 | disposition skilled nursing facility (03) | DRG 871 ==
LOC: ED 18:29 → ICU 20:17 → MS3 08-11 09:09 → ICU 08-12 16:20
PROVIDERS: Internal Medicine; Internal Medicine Critical Care Medicine; Internal Medicine Nephrology; Emergency Provider Emergency Medicine; PCP Internal Medicine; Visit Provider Internal Medicine
DX: A41.9 Sepsis, unspecified organism (principal); R65.21 Severe sepsis with septic shock; G93.41 Metabolic encephalopathy; N18.6 End stage renal disease; I13.2 Hypertensive heart and chronic kidney disease with heart failure and with stage 5 chronic kidney disease, or end stage renal disease; I42.8 Other cardiomyopathies; T83.511A Infection and inflammatory reaction due to indwelling urethral catheter, initial encounter; I50.32 Chronic diastolic (congestive) heart failure; N25.81 Secondary hyperparathyroidism of renal origin; N30.00 Acute cystitis without hematuria; D63.1 Anemia in chronic kidney disease; E11.22 Type 2 diabetes mellitus with diabetic chronic kidney disease; Z91.15 Patient's noncompliance with renal dialysis; E11.21 Type 2 diabetes mellitus with diabetic nephropathy; E66.01 Morbid (severe) obesity due to excess calories; Z99.2 Dependence on renal dialysis; E78.5 Hyperlipidemia, unspecified; I25.10 Atherosclerotic heart disease of native coronary artery without angina pectoris; I25.2 Old myocardial infarction; X58.XXXA Exposure to other specified factors, initial encounter; B96.4 Proteus (mirabilis) (morganii) as the cause of diseases classified elsewhere; N40.0 Benign prostatic hyperplasia without lower urinary tract symptoms; Z95.810 Presence of automatic (implantable) cardiac defibrillator; Z68.37 Body mass index [BMI] 37.0-37.9, adult; Z79.82 Long term (current) use of aspirin; Z79.84 Long term (current) use of oral hypoglycemic drugs; Z79.899 Other long term (current) drug therapy
CPT/HCPCS: 36415; 51702; 71045; 71275; 74174; 80048; 80053; 80307; 81001; 82077; 82533; 82962; 83605; 83735; 84100; 84484; 85025; 87040; 87077; 87086; 87088; 87186; 87428; 90937; 93005; 94002; 94003; 97110; 97162; 97166; 99285; J7030; J7050; Q9967; A4216; C1751; G0257

== ENCOUNTER → 2022-09-01 | Outpatient (REF) | payer MEDICARE, MEDICAID, SELFPAY ==
[2022-09-01 09:26] LABS: Hematocrit 33.8 % (40-54); Hemoglobin 10.8 g/dL (13.0-16.5); Mean Corpuscular Volume 97.1 fL (80-94); Mean Platelet Vol. 10.7 fl (6.2-12.0); POSITIVE COUNT YES; Platelet Count 88 K/mm3 (150-450); RBC Distribution Width CV 17.9 % (11.6-14.6); RBC Distribution Width SD 64.5 fl (35.1-43.9); Red Blood Count 3.48 M/mm3 (4.6-6.2); White Blood Count 9.6 K/mm3 (4.4-11.0)
[2022-09-01 10:42] LABS: Albumin, Serum 2.8 g/dL (3.2-5.0); BUN 73 mg/dL (7-18); BUN/Creat Ratio 5.6 RATIO (10-20); Calcium,Total 8.9 mg/dL (8.5-10.1); Chloride 100 mmol/L (98-107); EST Glomerular Filtration Rate 4 mL/min (>60); Est Glom Filt Rate - Afr Amer 5 mL/min (>60); Glucose 89 mg/dL (74-106); Magnesium 2.3 mg/dL (1.6-2.6); Phosphorus 3.8 mg/dL (2.5-4.9); Potassium 3.7 mmol/L (3.5-5.1); Sodium Level 139 mmol/L (136-145)
== END ==
LOC: OLS.SW 05:00
PROVIDERS: PCP Internal Medicine; Visit Provider Internal Medicine
DX: E11.22 Type 2 diabetes mellitus with diabetic chronic kidney disease (principal); N18.6 End stage renal disease
CPT/HCPCS: 36415; 80069; 83735; 85027

== ENCOUNTER → 2022-09-17 | Outpatient (REF) | payer MEDICARE, MEDICAID, SELFPAY ==
[2022-09-17 08:49] LABS: Anion Gap 9 (5-15); BUN 36 mg/dL (7-18); BUN/Creat Ratio 5.2 RATIO (10-20); Calcium,Total 9.3 mg/dL (8.5-10.1); Chloride 98 mmol/L (98-107); Creatinine, Serum 6.94 mg/dL (0.70-1.30); EST Glomerular Filtration Rate 9 mL/min (>60); Est Glom Filt Rate - Afr Amer 10 mL/min (>60); Glucose 79 mg/dL (74-106); Potassium 4.3 mmol/L (3.5-5.1); Sodium Level 135 mmol/L (136-145)
== END ==
LOC: OLS.SW 05:00
PROVIDERS: PCP Internal Medicine; Visit Provider Internal Medicine
DX: E11.9 Type 2 diabetes mellitus without complications (principal)
CPT/HCPCS: 36415; 80048

== ENCOUNTER → 2022-09-24 | Outpatient (REF) | payer MEDICARE, MEDICAID, SELFPAY ==
[2022-09-24 08:59] LABS: Anion Gap 9 (5-15); BUN 39 mg/dL (7-18); Calcium,Total 9.5 mg/dL (8.5-10.1); Chloride 97 mmol/L (98-107); Creatinine, Serum 6.55 mg/dL (0.70-1.30); EST Glomerular Filtration Rate 9 mL/min (>60); Est Glom Filt Rate - Afr Amer 11 mL/min (>60); Glucose 108 mg/dL (74-106); Potassium 4.6 mmol/L (3.5-5.1); Sodium Level 135 mmol/L (136-145)
== END | disposition home or self-care (01) ==
LOC: OLS.SW 05:00
PROVIDERS: PCP Internal Medicine; Visit Provider Internal Medicine
DX: E11.9 Type 2 diabetes mellitus without complications (principal); R68.89 Other general symptoms and signs
CPT/HCPCS: 36415; 80048

== ENCOUNTER → 2022-10-01 | Outpatient (REF) | payer MEDICARE, MEDICAID, SELFPAY ==
[2022-10-01 08:47] LABS: Anion Gap 7 (5-15); BUN 46 mg/dL (7-18); Calcium,Total 9.3 mg/dL (8.5-10.1); Chloride 98 mmol/L (98-107); EST Glomerular Filtration Rate 9 mL/min (>60); Est Glom Filt Rate - Afr Amer 11 mL/min (>60); Glucose 88 mg/dL (74-106); Potassium 4.9 mmol/L (3.5-5.1); Sodium Level 136 mmol/L (136-145)
== END ==
LOC: OLS.SW 05:00
PROVIDERS: PCP Internal Medicine; Visit Provider Internal Medicine
DX: R68.89 Other general symptoms and signs (principal); Z13.228 Encounter for screening for other metabolic disorders; Z79.899 Other long term (current) drug therapy
CPT/HCPCS: 36415; 80048

== ENCOUNTER → 2022-10-09 | Outpatient (REF) | payer MEDICARE, MEDICAID, SELFPAY ==
[2022-10-09 07:05] LABS: Anion Gap 6 (5-15); BUN 44 mg/dL (7-18); BUN/Creat Ratio 6.3 RATIO (10-20); Calcium,Total 9.6 mg/dL (8.5-10.1); Chloride 99 mmol/L (98-107); EST Glomerular Filtration Rate 9 mL/min (>60); Est Glom Filt Rate - Afr Amer 10 mL/min (>60); Glucose 92 mg/dL (74-106); Potassium 5.3 mmol/L (3.5-5.1); Sodium Level 137 mmol/L (136-145)
== END ==
LOC: OLS.SW 05:00
PROVIDERS: PCP Internal Medicine; Visit Provider Internal Medicine
DX: N18.2 Chronic kidney disease, stage 2 (mild) (principal); I50.43 Acute on chronic combined systolic (congestive) and diastolic (congestive) heart failure
CPT/HCPCS: 36415; 80048

== ENCOUNTER → 2022-11-05 | Outpatient (REF) | payer MEDICARE, MEDICAID, SELFPAY ==
[2022-11-05 09:01] LABS: Hematocrit 29.1 % (40-54); Hemoglobin 9.2 g/dL (13.0-16.5); Mean Corp Hgb Conc 31.6 g/dL (32-36); Mean Corpuscular Hgb 30.7 pg (27.0-32.0); Mean Platelet Vol. 10.4 fl (6.2-12.0); Platelet Count 198 K/mm3 (150-450); RBC Distribution Width CV 13.8 % (11.6-14.6); RBC Distribution Width SD 49.2 fl (35.1-43.9); White Blood Count 15.3 K/mm3 (4.4-11.0)
[2022-11-05 10:01] LABS: Albumin, Serum 2.7 g/dL (3.2-5.0); BUN 83 mg/dL (7-18); Calcium,Total 9.5 mg/dL (8.5-10.1); Chloride 102 mmol/L (98-107); EST Glomerular Filtration Rate 4 mL/min (>60); Est Glom Filt Rate - Afr Amer 5 mL/min (>60); Glucose 79 mg/dL (74-106); Phosphorus 2.4 mg/dL (2.5-4.9); Sodium Level 138 mmol/L (136-145)
== END ==
LOC: OLS.SW 05:00
PROVIDERS: PCP Internal Medicine; Visit Provider Internal Medicine
DX: I10 Essential (primary) hypertension (principal); Z79.899 Other long term (current) drug therapy
CPT/HCPCS: 36415; 80069; 85027

== ENCOUNTER → 2022-11-07 | Outpatient (REF) | payer MEDICARE, MEDICAID, SELFPAY ==
[2022-11-07 09:27] LABS: Anion Gap 11 (5-15); BUN 57 mg/dL (7-18); Chloride 96 mmol/L (98-107); EST Glomerular Filtration Rate 5 mL/min (>60); Est Glom Filt Rate - Afr Amer 6 mL/min (>60); Glucose 90 mg/dL (74-106); Potassium 4.2 mmol/L (3.5-5.1); Sodium Level 136 mmol/L (136-145)
== END ==
LOC: OLS.SW 05:00
PROVIDERS: PCP Internal Medicine; Visit Provider Internal Medicine
DX: E11.622 Type 2 diabetes mellitus with other skin ulcer (principal); Z99.2 Dependence on renal dialysis; Z79.899 Other long term (current) drug therapy
CPT/HCPCS: 36415; 80048

== ENCOUNTER → 2022-12-02 | Outpatient (REF) | payer MEDICARE, MEDICAID, SELFPAY ==
[2022-12-02 09:09] LABS: Absolute Neutrophil Count 9.3 X10^3/uL (2.0-7.7); Basophil# 0.08 X10^3/uL; Basophil% 0.7 % (0-1); Eosinophil# 0.25 X10^3/uL; Eosinophils% 2.1 % (0-5); Hematocrit 24.4 % (40-54); Hemoglobin 7.5 g/dL (13.0-16.5); Lymphocyte % 9.3 % (19-41); Mean Corp Hgb Conc 30.7 g/dL (32-36); Monocyte% 8.5 % (0-10); NRBC Flagged by Analyzer 0 % (0-5); Neutrophil # 9.25 X10^3/uL (2.7-7.7); Neutrophil % 78.5 % (47-70); Platelet Count 226 K/mm3 (150-450); RBC Distribution Width CV 16.8 % (11.6-14.6); RBC Distribution Width SD 56.1 fl (35.1-43.9); Red Blood Count 2.68 M/mm3 (4.6-6.2); White Blood Count 11.8 K/mm3 (4.4-11.0)
== END ==
LOC: OLS.SW 05:00
PROVIDERS: PCP Internal Medicine; Visit Provider Internal Medicine
DX: N18.6 End stage renal disease (principal); Z79.899 Other long term (current) drug therapy
CPT/HCPCS: 36415; 85025; 87077; 87086; 87088; 87186

== ENCOUNTER 2022-12-03 19:48 | Inpatient (IN) | payer MEDICARE, MEDICAID, SELFPAY ==
[2022-12-03 19:49] VITALS: BP 127/71; PULSE 106; RESP 18; TEMP 37.2; O2SAT 94; BMI 37.9
[2022-12-03 20:18] LABS: Bacteria 0 SEEN /hpf (None Seen); Mucous, Urine 0 SEEN /hpf (<or=2+); Red Blood Cells-Urine 0 SEEN /hpf (0-5); Squamous Epithelial Cells - UA 0 SEEN /hpf (0-5)
[2022-12-03 20:20] LABS: Glucose, Dipstick Normal (Normal); Ketone-Dipstick Negative (Negative); Leukocyte Esterase-Dipstick 500 /ul (Negative); Nitrite-Dipstick Negative (Negative); Occult Blood-Urine 150 /ul (Negative); Protein-Dipstick 500 mg/dl (Negative); Specific Gravity, Urine 1.015 (1.002-1.030); Urine Bilirubin Dipstick Negative (Negative); Urine Clarity Turbid (Clear); Urine Urobilinogen Normal (Normal)
[2022-12-03 20:22] LABS: Color, Urine SEE COMMENT BELOW (Yellow)
[2022-12-03 20:27] LABS: White Blood Cells >100 SEEN /hpf (0-5)
--- NOTE | 2022-12-03 21:18 | EKG12_ITS ---
Test Reason : DYSRHYTHMIA Blood Pressure : / mmHG Vent. Rate : 110 BPM Atrial Rate : 107 BPM P-R Int : 000 ms QRS Dur : 142 ms QT Int : 390 ms P-R-T Axes : 000 023 247 degrees QTc Int : 527 ms Ventricular-paced rhythm Biventricular pacemaker detected Abnormal ECG Confirmed by TRE ARCHER, KARL ([id number]), editor index EMMIE BRAR ([id number]) on 12/05/2022 2:24:42 PM Referred By: DEBBIE Confirmed By:KARL TOLEDO MD
[2022-12-03 21:52] LABS: Absolute Lymphocyte Count 1.01 X10^3/uL (0.83-4.51); Absolute Neutrophil Count 9.3 X10^3/uL (2.0-7.7); Basophil# 0.04 X10^3/uL; Basophil% 0.3 % (0-1); Eosinophil# 0.11 X10^3/uL; Hematocrit 22.9 % (40-54); Hemoglobin 7.2 g/dL (13.0-16.5); Lymphocyte # 1.01 X10^3/ul (0.83-4.51); Lymphocyte % 8.8 % (19-41); Mean Corp Hgb Conc 31.4 g/dL (32-36); Mean Corpuscular Hgb 27.4 pg (27.0-32.0); Mean Corpuscular Volume 87.1 fL (80-94); Monocyte# 0.85 X10^3/uL; Monocyte% 7.4 % (0-10); NRBC Flagged by Analyzer 0 % (0-5); Neutrophil # 9.29 X10^3/uL (2.7-7.7); Neutrophil % 81.4 % (47-70); Platelet Count 239 K/mm3 (150-450); RBC Distribution Width CV 16.9 % (11.6-14.6); RBC Distribution Width SD 53.7 fl (35.1-43.9); Red Blood Count 2.63 M/mm3 (4.6-6.2); White Blood Count 11.4 K/mm3 (4.4-11.0)
[2022-12-03 22:05] VITALS: BP 140/83; PULSE 103; RESP 24; TEMP 36.9; O2SAT 93
--- NOTE | 2022-12-03 22:07 | RAD_ITS ---
INDICATION: AMS EXAMINATION/TECHNIQUE: X-RAY - portable upright AP chest x-ray COMPARISON: 08/06/2022 FINDINGS: LINES/DEVICES: Stable transvenous pacemaker. LUNGS: Mild vascular congestion with hazy bilateral airspace opacities. No consolidations or pleural effusions MEDIASTINUM AND CARDIOVASCULAR STRUCTURES: Stable cardiomegaly. BONES AND SOFT TISSUES: No acute changes. RAD/Chest 1 View (Portable) IMPRESSION: Cardiomegaly with vascular congestion and mild pulmonary edema. Electronically Signed: Paulie Hammer MD at 22:39 EDT ,
[2022-12-03 22:08] VITALS: BP 140/83; PULSE 105; RESP 26; TEMP 36.9; O2SAT 94
[2022-12-03 22:10] LABS: ALB/GLOB Ratio 0.4 RATIO (0.9-2.4); AST(SGOT) 31 U/L (15-37); Alanine Aminotransfer ALT/SGPT 10 U/L (16-61); Albumin, Serum 1.8 g/dL (3.2-5.0); Alkaline Phosphatase 131 U/L (45-117); Anion Gap 4 (5-15); BUN 34 mg/dL (7-18); BUN/Creat Ratio 6.6 RATIO (10-20); Calcium,Total 8.4 mg/dL (8.5-10.1); Chloride 96 mmol/L (98-107); Creatinine, Serum 5.13 mg/dL (0.70-1.30); EST Glomerular Filtration Rate 12 mL/min (>60); Est Glom Filt Rate - Afr Amer 15 mL/min (>60); Globulin 5.1 g/dL (2.2-4.2); Glucose 142 mg/dL (74-106); International Normalized Ratio 1.4; Potassium 3.1 mmol/L (3.5-5.1); Protein, Total 6.9 g/dL (6.4-8.2); Prothrombin Time (Protime)PT. 17.1 SECONDS (11.7-14.9); Sodium Level 135 mmol/L (136-145)
[2022-12-03 22:11] LABS: Partial Thromboplast Time 39.2 Seconds (24.1-36.2)
[2022-12-03 22:42] LABS: Lactic Acid 2.1 mmol/L (0.4-1.9)
[2022-12-03 23:08] VITALS: BP 147/87; PULSE 107; RESP 26; TEMP 36.9; O2SAT 95
--- NOTE | 2022-12-03 23:29 | ED.RN ---
DIALYSIS PT, CREATININE USUALLY ELEVATED, FLUID RESUSCITATION NOT STARTED NOT TRUE SEPSIS ALERT
--- NOTE | 2022-12-03 23:32 | PCM.HP.STD ---
HPI - General General Date of Admission: 12/03/22 Date of Service: 12/03/22 Chief Complaint: Confusion, recent SNF diagnosis UTI but no abx started. HPI Narrative The patient is a 61 y/o M w/ PMHx: Obesity, CAD, ESRD on HD (T, Th, Sat w/ Dr. Chavez), HTN, HLD, Chronic Combined CHF/Nonischemic Cardiomyopathy, Hx NSVT s/p AICD placement, Diabetes mellitus type II, Chronic anemia/AOCD/Fe deficiency anemia, RAQUEL, Chronic venous stasis disease who presents to the [facility] ED on 12/03/22 secondary to history of recent urinalysis that demonstrated possible urinary tract infection although he was not started on antibiotic therapy with urine culture pending with increased altered mental status and fatigue prompting skilled facility to transition patient to the ED for evaluation. He does report a recent mild nonproductive cough over the last 1-2 weeks but no increased edema, weight gain, orthopnea, other URI type symptoms. Work-up in the ED included T98.9, heart rate 106, BP 127/71, respiratory rate 18, 94% on room air, urinalysis with turbid appearing urine, protein 500, occult blood 150, negative nitrite, leukocyte Estrace 500 with greater than 100 urine WBCs with no bacteria noted, CBC with WBC 11.4, hemoglobin 7.2, platelets 239 with left shift, coags with PT 17.1, INR 1.4, PTT 39.2, CMP with sodium 135, potassium 3.1, chloride 96, carbon oxide 35, BUN/creatinine 34/5.13, glucose 142, lactic acid 2.1, alk phos 131 otherwise hepatic profile not marked appearing, chest x-ray with cardiomegaly with mild vascular congestion and pulmonary edema, blood culture x2, urine culture pending per ED. Discussed with ED and requested catheter be changed upon admission, also noted plan for administration IV rocephin as well as IVF 500 cc NS administration cautiously given CXR appearance. [facility] Medical History (Updated 12/03/22 @ 23:[address] Carole Roberts MD) Ambulates with cane Atherosclerosis of [place] coronary artery of [place] heart without angina pectoris Benign prostatic hyperplasia Chronic diastolic (congestive) heart failure Chronic indwelling Lucero catheter Diabetes mellitus, type II End-stage renal disease on hemodialysis Essential hypertension Lucero catheter in place Gout Hydronephrosis concurrent with and due to calculi of kidney and ureter Hyperlipidemia ICD (implantable cardioverter-defibrillator) in place Iron deficiency anemia Left bundle branch block (LBBB) Morbid obesity Non-ischemic cardiomyopathy Non-smoker Nonsustained ventricular tachycardia Open wound RAQUEL (obstructive sleep apnea) Right foot drop Secondary hyperparathyroidism (of renal origin) Sleep apnea Venous ulcer of left lower extremity without varicose veins Walker as ambulation aid Wears glasses Home Medications allopurinol 300 mg tablet 150 mg PO DAILY GOUT 01/27/16 [History Last Taken 08/05/22] latanoprost 0.005 % eye drops 1 drp EACH EYE QHS GLAUCOMA 12/23/18 [History Last Taken 08/05/22] tamsulosin 0.4 mg capsule 0.4 mg PO QHS PROSTATE 06/21/19 [History Last Taken 08/01/22] sevelamer carbonate 800 mg tablet 1,600 mg PO TIDCM KIDNEY DISEASE 03/26/22 [History Last Taken 08/05/22] acetaminophen 325 mg tablet (Tylenol) 1,300 mg PO Q4H PRN Pain 08/06/22 [History Last Taken 08/04/22] aluminum-magnesium hydroxide 225 mg-200 mg/5 mL oral suspension 30 ml PO Q4H PRN Acid Reflux 08/06/22 [History Last Taken 07/31/22] ammonium lactate 12 % lotion 1 applic topical BID SEVERE DRY SKIN 08/06/22 [History Last Taken 08/06/22] aspirin 81 mg tablet,delayed release 81 mg PO DAILY HEART HEALTH 08/06/22 [History Last Taken 08/05/22] atorvastatin 80 mg tablet 80 mg PO QHS CHOLESTEROL 08/06/22 [History Last Taken 08/05/22] cinacalcet 60 mg tablet 60 mg PO MOTUWEFR SUPPLEMENT 08/06/22 [History Last Taken 08/05/22] mupirocin 2 % topical ointment 1 applic topical QHS WOUND HEALING 08/06/22 [History Last Taken 08/05/22] vitamin B complex and vitamin C no.20-folic acid 1 mg capsule 1 cap PO DAILY SUPPLEMENT 08/06/22 [History Last Taken 08/05/22] linagliptin 5 mg tablet (Tradjenta) 2.5 mg PO DAILY 10/08/22 [History Last Taken Unknown] midodrine 10 mg tablet 10 mg PO TID 10/08/22 [History Last Taken Unknown] potassium chloride 20 mEq tablet,extended release 20 meq PO DAILY 10/08/22 [History Last Taken Unknown] Allergy/AdvReac Type Severity Reaction Status Date / Time aluminum Allergy PT UNSURE Verified 12/03/22 20:16 OF REACTION amoxicillin [From Augmentin] Allergy PT UNSURE Verified 12/03/22 20:16 OF REACTION clavulanic acid Allergy PT UNSURE Verified 12/03/22 20:16 [From Augmentin] OF REACTION Family History Father Hypertension Heart disease Diabetes Mother Diabetes Chronic kidney disease Hypertension Anemia Surgical History H/O skin graft History of tonsillectomy and adenoidectomy Hx of appendectomy Hx of tonsillectomy Presence of biventricular implantable cardioverter-defibrillator (ICD) (05/14/11) Social History household members: none Smoking Status: Never smoker alcohol intake: never substance use type: does not use caffeine: Yes ROS ROS Narrative Admission Review of Systems: CONSTITUTIONAL: No weight loss, fever, chills, + weakness or fatigue. HEENT: Eyes: No visual loss, blurred vision, double vision or yellow sclerae. Ears, Nose, Throat: No hearing loss, sneezing, congestion, runny nose or sore throat. SKIN: + chronic extremity abasions/wounds, BL LE chronic venous stasis skin changes, s/p skin grafting, head skin lesion. CARDIOVASCULAR: No chest pain, chest pressure or chest discomfort, palpitations, edema, orthopnea, syncopal events. RESPIRATORY: + Mild cough, no shortness of breath, marked sputum, wheezing, hemoptysis. GASTROINTESTINAL: No anorexia, nausea, vomiting, abdominal pain, diarrhea, melena, BRBPR. GENITOURINARY: + Chronic lucero with purulent appearing urine, chronic retention. No dysuria, frequency, urgency. NEUROLOGICAL: + Confusion. No headache, dizziness, syncope, paralysis, ataxia, numbness or tingling in the extremities, focal weakness, change in bowel or bladder control, seizure. MUSCULOSKELETAL: + muscle, back pain, joint pain or stiffness. HEMATOLOGIC: + anemia, bleeding or bruising. LYMPHATICS: No enlarged nodes. No history of splenectomy. PSYCHIATRIC: No history of depression or anxiety. ENDOCRINOLOGIC: No reports of sweating, cold or heat intolerance. No polyuria or polydipsia. ALLERGIES: No history of asthma, hives, eczema or rhinitis. Vital Signs Vital Signs Vital Signs: 12/03/22 19:49 12/03/22 21:47 12/03/22 22:05 Temperature 98.9 F 98.4 F Temperature Source Oral Oral Pulse Rate 106 H 103 H Respiratory Rate 18 24 H Blood Pressure 127/71 H 140/83 H Blood Pressure Mean 89 102 Pulse Ox 94 93 Oxygen Delivery Method Room Air Room Air Room Air 12/03/22 22:08 Temperature 98.4 F Temperature Source Oral Pulse Rate 105 H Respiratory Rate 26 H Blood Pressure 140/83 H Blood Pressure Mean 102 Pulse Ox 94 Oxygen Delivery Method Room Air Weight Weight: 271 lb 13.279 oz Body Mass Index (BMI) 37.9 Physical Exam Narrative Physical Examination: General: Awake, alert, oriented to self, place and recent events, seems improved from SNF report of confusion, remains cooperative, laying flat in the ED bed, fatigued appearing, NAD. Skin: Normal color, normal turgor, no icterus, no cyanosis except chronic extremity abrasions, evidence BL LE skin grafts prior, chronic R scalp lesion, chronic bilateral lower extremity venous stasis skin changes. HEENT: AT/NC, EOMI, PERRLA, MMM, chronic lesion noted on the scalp right lateral, no obvious carotid bruits or JVD noted; however thickened neck makes examination difficult. Lungs: Diminished breath sounds, greater bases, appropriate effort, no marked rales despite CXR findings, no ronchi or wheezing. Heart: Regular rate and rhythm; no gallop, rub audible. Abdomen: Soft, obese, NTTP, difficult to assess distention given habitus, normal bowel sounds, no obvious HSM but habitus makes examination difficult, chronic lucero in place, purulent appearing output, awaiting catheter change in ED. Extremities: No cyanosis, no clubbing, chronic BL LE venous stasis skin changes as noted. Neurological: Patient awake, alert, oriented as noted, cognitive function seems to be improving, suspect nearing baseline intact; pupils equally reactive to light and accommodation, cranial nerves grossly normal, moving all 4 extremities, no focal deficits, strength moderately to severely global decrease secondary to acute presentation. Psychiatric: Affect appears fatigued, no acute evidence of depressive or anxiety feelings. Results Lab / Micro Data Result Diagrams: 12/03/22 21:43 12/03/22 21:43 Labs: Laboratory Results - last 24 hr 12/03/22 20:04: Urine Color SEE COMMENT BELOW, Urine Clarity Turbid, Urine pH 7.0, Ur Specific [place] 1.015, Urine Protein 500 H, Urine Glucose (UA) Normal, Urine Ketones Negative, Urine Occult Blood 150 H, Urine Nitrite Negative, Urine Bilirubin Negative, Urine Urobilinogen Normal, Ur Leukocyte Esterase 500 H, Urine RBC 0 SEEN, Urine WBC >100 SEEN, Ur Squamous Epith Cells 0 SEEN, Urine Bacteria 0 SEEN, Urine Mucus 0 SEEN 12/03/22 21:43: WBC 11.4 H, RBC 2.63 L, Hgb 7.2 L, Hct 22.9 L, MCV 87.1, MCH 27.4, MCHC 31.4 L, RDW Std Deviation 53.7 H, RDW Coeff of Jeffrey 16.9 H, Plt Count 239, MPV 10.0, Immature Gran % (Auto) 1.100 H, Neut % (Auto) 81.4 H, Lymph % (Auto) 8.8 L, [place] % (Auto) 7.4, Eos % (Auto) 1.0, Baso % (Auto) 0.3, Absolute Neuts (auto) 9.3 H, Absolute Lymphs (auto) 1.01, Nucleated RBC % 0 12/03/22 21:43: PT 17.1 H, INR 1.4, APTT 39.2 H 12/03/22 21:43: Sodium 135 L, Potassium 3.1 L, Chloride 96 L, Carbon Dioxide 35.0 H, Anion Gap 4 L, BUN 34 H, Creatinine 5.13 H, Estim Creat Clear Calc 15.70, Est GFR (MDRD) Af Amer 15 L, Est GFR (MDRD) Non-Af 12 L, BUN/Creatinine Ratio 6.6 L, Glucose 142 H, Calcium 8.4 L, Total Bilirubin 0.50, AST 31, ALT 10 L, Alkaline Phosphatase 131 H, Total Protein 6.9, Albumin 1.8 L, Globulin 5.1 H, Albumin/Globulin Ratio 0.4 L 12/03/22 21:43: Lactic Acid 2.1 H* Radiology Impression Chest X-Ray 12/03/22 22:07 IMPRESSION: Cardiomegaly with vascular congestion and mild pulmonary edema. Electronically Signed: Paulie Hammer MD at 22:39 EDT Reading Location ID and State: [address] [place] [address] Tel , Service support , Assessment & Plan Assessment/Plan (1) UTI (urinary tract infection): PLAN: Plan The patient is a 61 y/o M w/ PMHx: Obesity, CAD, ESRD on HD (T, Th, Sat w/ Dr. Chavez), HTN, HLD, Chronic Combined CHF/Nonischemic Cardiomyopathy, Hx NSVT s/p AICD placement, Diabetes mellitus type II, Chronic anemia/AOCD/Fe deficiency anemia, RAQUEL, Chronic venous stasis disease who presents to the [facility] ED on 12/03/22 secondary to history of recent urinalysis that demonstrated possible urinary tract infection although he was not started on antibiotic therapy with urine culture pending with increased altered mental status and fatigue prompting skilled facility to transition patient to the ED for evaluation. #1. Acute Sepsis secondary to Acute Encephalopathy secondary to Acute Complicated Urinary Tract Infection with chronic indwelling Lucero catheter with mild lactic acidosis (tachycardia, tachypnea, UTI source, mild lactic acidosis): Will admit to medical surgical floor, UA upon ED evaluation remarkable, pending UCx but previously has had decent sensitivities, will administer very judicious IV fluids given CHF history as well as chest x-ray findings although patient currently on room air, monitor I/Os, continue IV Rocephin w/ transition as able pending sensitivities and speciation. Bld cx x 2 obtained in the ED. #2. Hypokalemia: Admission K+ 3.1, magnesium level requested, judicious supplementation given given end-stage renal disease on dialysis, repeat level in AM. #3. Chronic Combined CHF/Nonischemic cardiomyopathy: Chest x-ray with congestion with mild hypoxia with oxygenation 93 to 94% on room air but concern given #1 with IVF 500 cc administered per ED thus will continue to monitor and if needed may pulse dose IV lasix. Status post prior AICD placement, we will continue patient home aspirin, statin, not on STACY inhibitor/ARB, beta-keisha nor diuretic therapy with transition to midodrine. 06/23/2022 echocardiogram with normal LV size, EF 35%, moderately severe segmental systolic dysfunction with worsening of LV systolic function compared to prior echocardiogram. Will administer pulse dose Lasix 60 mg IV x1 especially given mild lactic acidosis with acute presentation number 1. #4. CAD: 06/2022 noted abnormal EKG and stress testing, catheterization w/ severe coronary artery disease with LAD disease and RCA stenosis with LV function of 35%, transferred to [facility] at that time, unclear exact interventions and from last noted cardiology notes records have been requested. #5. ESRD: Patient with ongoing MWF HD regimen, will consult Dr. Chavez for ongoing HD needs, continue home midodrine regimen. #6. Chronic anemia, AOCD, iron deficiency anemia: Admission hemoglobin 7.2, baseline primarily 9-10 range however most recent prior to this 12/02/2022 hemoglobin 7.5, continue iron supplementation, trend CBC and if hemoglobin does decrease less than 7 would plan PRBC administration. In the past patient has vacillated and been as low as in the 7 range as well. #7. Diabetes mellitus type II: Hold oral home regimen, ADA diet, accu checks w/ ISS. #8. Hypertension: Patient previously from most recent cardiology note/10/08/2022 had been on Coreg regimen however following transition to [facility] this was discontinued and patient has been transitioned onto midodrine therapy, as noting very judiciously hydrating given #1 and may need to pulse dose IV lasix given #3, will have as needed IV hydralazine. #9. Hyperlipidemia: We will continue patient on statin therapy. #10. BPH: We will continue patient on Flomax regimen. #11. Hx NSVTP: DEBUBBLIZER-D evaluation 06/2022 with NSVT noted at that time s/p AICD placement, encourage continued outpatient follow-up with cardiology, last device evaluation 10/08/2022. #12. Morbid Obesity: Weight loss and lifestyle changes encouraged, nutrition consulted. #13. RAQUEL: Continue CPAP nightly if amenable. #14. Gout: We will continue patient home allopurinol regimen. #15. DVT prophylaxis: Heparin. #16. CODE status: Full Code per facility paperwork. Admission Evaluation Time spent evaluating chart, patient history, patient evaluation, care planning and discussion with specialists: 75 minutes. Charges/Coding Visit Charges Inpatient E&M: 17355 Init Hosp L3
[2022-12-03 23:52] LABS: Magnesium 1.7 mg/dL (1.6-2.6); Phosphorus 1.5 mg/dL (2.5-4.9)
[2022-12-04] VITALS (9 sets, daily range): BP systolic 109–156; BP diastolic 73–84; PULSE 60–121; RESP 16–34; TEMP 36.4–37.7; O2SAT 93–100; BMI 36.8; BMI 37.0
--- NOTE | 2022-12-04 00:08 | EDS_ITS ---
HPI History of Present Illness Chief Complaint: Complaint Informant: patient and SNF Narrative Narrative: Patient is a 61-year-old male, resident of [facility] with history of end-stage renal disease, ICD placement, nonischemic cardiomyopathy, hypertens ion, hyperlipidemia, diabetes mellitus and chronic indwelling Barnes catheter presenting for concern of UTI and altered mental status. Patient has had more purulent drainage from his Barnes catheter lately. He states he still makes urine but cannot tell me how often his bag is emptied. He has been reportedly been more confused. He had an outpatient urine test that showed infection per report however he has not been started antibiotics yet. Patient states he had a full hemodialysis session today. He states he has been a lot more short of breath the past few days. Slight cough. Is not sure if he is any fevers. No other complaints at this time. [facility] Medical History Ambulates with cane Atherosclerosis of [place] coronary artery of [place] heart without angina pectoris Benign prostatic hyperplasia Chronic diastolic (congestive) heart failure Chronic indwelling Barnes catheter Diabetes mellitus, type II End-stage renal disease on hemodialysis Essential hypertension Barnes catheter in place Gout Hydronephrosis concurrent with and due to calculi of kidney and ureter Hyperlipidemia ICD (implantable cardioverter-defibrillator) in place Iron deficiency anemia Left bundle branch block (LBBB) Morbid obesity Non-ischemic cardiomyopathy Non-smoker Nonsustained ventricular tachycardia Open wound RAQUEL (obstructive sleep apnea) Right foot drop Secondary hyperparathyroidism (of renal origin) Sleep apnea Venous ulcer of left lower extremity without varicose veins Walker as ambulation aid Wears glasses Home Medications allopurinol 300 mg tablet 150 mg PO DAILY GOUT 01/27/16 [History Last Taken 08/05/22] latanoprost 0.005 % eye drops 1 drp EACH EYE QHS GLAUCOMA 12/23/18 [History Last Taken 08/05/22] tamsulosin 0.4 mg capsule 0.4 mg PO QHS PROSTATE 06/21/19 [History Last Taken 08/01/22] sevelamer carbonate 800 mg tablet 1,600 mg PO TIDCM KIDNEY DISEASE 03/26/22 [History Last Taken 08/05/22] acetaminophen 325 mg tablet (Tylenol) 1,300 mg PO Q4H PRN Pain 08/06/22 [History Last Taken 08/04/22] aluminum-magnesium hydroxide 225 mg-200 mg/5 mL oral suspension 30 ml PO Q4H PRN Acid Reflux 08/06/22 [History Last Taken 07/31/22] ammonium lactate 12 % lotion 1 applic topical BID SEVERE DRY SKIN 08/06/22 [History Last Taken 08/06/22] aspirin 81 mg tablet,delayed release 81 mg PO DAILY HEART HEALTH 08/06/22 [History Last Taken 08/05/22] atorvastatin 80 mg tablet 80 mg PO QHS CHOLESTEROL 08/06/22 [History Last Taken 08/05/22] cinacalcet 60 mg tablet 60 mg PO MOTUWEFR SUPPLEMENT 08/06/22 [History Last Taken 08/05/22] mupirocin 2 % topical ointment 1 applic topical QHS WOUND HEALING 08/06/22 [History Last Taken 08/05/22] vitamin B complex and vitamin C no.20-folic acid 1 mg capsule 1 cap PO DAILY SUPPLEMENT 08/06/22 [History Last Taken 08/05/22] linagliptin 5 mg tablet (Tradjenta) 2.5 mg PO DAILY 10/08/22 [History Last Taken Unknown] midodrine 10 mg tablet 10 mg PO TID 10/08/22 [History Last Taken Unknown] potassium chloride 20 mEq tablet,extended release 20 meq PO DAILY 10/08/22 [History Last Taken Unknown] Allergy/AdvReac Type Severity Reaction Status Date / Time aluminum Allergy PT UNSURE Verified 12/03/22 20:16 OF REACTION amoxicillin [From Augmentin] Allergy PT UNSURE Verified 12/03/22 20:16 OF REACTION clavulanic acid Allergy PT UNSURE Verified 12/03/22 20:16 [From Augmentin] OF REACTION Family History Father Hypertension Heart disease Diabetes Mother Diabetes Chronic kidney disease Hypertension Anemia Surgical History H/O skin graft History of tonsillectomy and adenoidectomy Hx of appendectomy Hx of tonsillectomy Presence of biventricular implantable cardioverter-defibrillator (ICD) (05/14/11) Social History household members: none Smoking Status: Never smoker alcohol intake: never substance use type: does not use caffeine: Yes ROS ROS ED Constitutional Constitutional ED: Denies chills or fever(s) Cardiovascular Cardiovascular: Denies chest pain Respiratory/Chest Respiratory/Chest: Reports cough and dyspnea Gastrointestinal Gastrointestinal: Denies abdominal pain, nausea or vomiting Musculoskeletal Musculoskeletal: Denies arthralgias or myalgias Integumentary Denies rash Neurologic Neurologic: Denies headache(s) Psychiatric Psychiatric: Denies anxiety Hematologic/Lymphatic Hematologic/Lymphatic: Denies easy bleeding EXAM Physical Exam Const Vital Signs: 12/03/22 19:49 12/03/22 21:47 12/03/22 22:05 Temperature 98.9 F 98.4 F Temperature Source Oral Oral Pulse Rate 106 H 103 H Respiratory Rate 18 24 H Blood Pressure 127/71 H 140/83 H Blood Pressure Mean 89 102 Pulse Ox 94 93 Oxygen Delivery Method Room Air Room Air Room Air 12/03/22 22:08 12/03/22 23:08 Temperature 98.4 F 98.4 F Temperature Source Oral Temporal Pulse Rate 105 H 107 H Respiratory Rate 26 H 26 H Blood Pressure 140/83 H 147/87 H Blood Pressure Mean 102 107 Pulse Ox 94 95 Oxygen Delivery Method Room Air Room Air Positive well nourished, well developed and obese General Appearance ED: well developed Nutritional Appearance: obese HEENT Reports dry mucous membranes Negative for trauma Mouth ED: Yes dry mucous membranes Mouth: dry mucous membranes Eyes PERRL and EOMs intact bilaterally Neck supple and no JVD Chest Wall inspection of chest normal and palpation of chest normal Resp Resp Narrative: tachypnic Auscultation: diminished lung sounds Cardio regular rhythm Rate: tachycardic GI normal to inspection, nondistended, normoactive bowel sounds Auscultation: normoactive bowel sounds Narrative: Indwelling Barnes catheter in place. Purulent appearing urine draining from it Extremity normal to inspection Extremity Narrative: AV fistula in the right forearm with palpable thrill General Extremety ED: Negative for edema General Extremity: Negative for edema Neuro Sensorium / Orientation: alert Motor Exam: general weakness Psych mental status grossly normal Skin no rashes or lesions noted and no wounds Sepsis Attestation Sepsis Alert: Yes Sepsis Attestation: Agree w/Sepsis Possible Source of Sepsis: Genitourinary Sepsis Organ Dysfunction Criteria Present: Creatinine > 2.0 mg/dL and Lactic Acid > 2 mmol/L Fluid Resuscitation Fluid Resuscitation ordered: Lesser volume fluid bolus ordered Amount of fluid ordered: 500 Reason for lesser fluid bolus:: Renal Failure MDM MDM MDM Narrative Medical decision making narrative: Patient's evaluated for altered mental status in setting of likely catheter associated UTI. On arrival patient is mildly tachycardic. He clinically appears dehydrated. He has very dry mucosal membranes. He has a mild leukocytosis of 11.4. He has acute on chronic anemia with a hemoglobin of 7.2. No obvious source of bleeding. Urinalysis shows greater than 100 white blood cells. Patient's bicarb is mildly elevated at 35 and his potassium is actually low at 3.1. Sodium and chloride are also mildly low. I question patient is getting over dialyzed. Lactate is also mildly elevated at 2.1. Patient is given a small fluid bolus but do not want to fluid overload him given he is end- stage renal disease. In addition chest x-ray interpreted by myself as well as radiology does show pulmonary vascular congestion. Case is discussed with hospitalist and patient started on IV Rocephin based on prior culture sensitivities. Is admitted. After discussion with the hospitalist, Barnes catheter was exchanged. Lab Data Labs: Laboratory Results - last 24 hr 12/03/22 12/03/22 12/03/22 20:04 21:43 21:43 WBC 11.4 H RBC 2.63 L Hgb 7.2 L Hct 22.9 L MCV 87.1 MCH 27.4 MCHC 31.4 L RDW Std Deviation 53.7 H RDW Coeff of Jeffrey 16.9 H Plt Count 239 MPV 10.0 Immature Gran % (Auto) 1.100 H Neut % (Auto) 81.4 H Lymph % (Auto) 8.8 L [place] % (Auto) 7.4 Eos % (Auto) 1.0 Baso % (Auto) 0.3 Absolute Neuts (auto) 9.3 H Absolute Lymphs (auto) 1.01 Nucleated RBC % 0 PT 17.1 H INR 1.4 APTT 39.2 H Sodium Potassium Chloride Carbon Dioxide Anion Gap BUN Creatinine Estim Creat Clear Calc Est GFR (MDRD) Af Amer Est GFR (MDRD) Non-Af BUN/Creatinine Ratio Glucose Lactic Acid Calcium Phosphorus Magnesium Total Bilirubin AST ALT Alkaline Phosphatase Total Protein Albumin Globulin Albumin/Globulin Ratio Urine Color SEE COMMENT BELOW Urine Clarity Turbid Urine pH 7.0 Ur Specific [place] 1.015 Urine Protein 500 H Urine Glucose (UA) Normal Urine Ketones Negative Urine Occult Blood 150 H Urine Nitrite Negative Urine Bilirubin Negative Urine Urobilinogen Normal Ur Leukocyte Esterase 500 H Urine RBC 0 SEEN Urine WBC >100 SEEN Ur Squamous Epith Cells 0 SEEN Urine Bacteria 0 SEEN Urine Mucus 0 SEEN 12/03/22 12/03/22 12/03/22 21:43 21:43 21:43 WBC RBC Hgb Hct MCV MCH MCHC RDW Std Deviation RDW Coeff of [place] Plt Count MPV Immature Gran % (Auto) Neut % (Auto) Lymph % (Auto) [place] % (Auto) Eos % (Auto) Baso % (Auto) Absolute Neuts (auto) Absolute Lymphs (auto) Nucleated RBC % PT INR APTT Sodium 135 L Potassium 3.1 L Chloride 96 L Carbon Dioxide 35.0 H Anion Gap 4 L BUN 34 H Creatinine 5.13 H Estim Creat Clear Calc 15.70 Est GFR (MDRD) Af Amer 15 L Est GFR (MDRD) Non-Af 12 L BUN/Creatinine Ratio 6.6 L Glucose 142 H Lactic Acid 2.1 H* Calcium 8.4 L Phosphorus 1.5 L Magnesium 1.7 Total Bilirubin 0.50 AST 31 ALT 10 L Alkaline Phosphatase 131 H Total Protein 6.9 Albumin 1.8 L Globulin 5.1 H Albumin/Globulin Ratio 0.4 L Urine Color Urine Clarity Urine pH Ur Specific [place] Urine Protein Urine Glucose (UA) Urine Ketones Urine Occult Blood Urine Nitrite Urine Bilirubin Urine Urobilinogen Ur Leukocyte Esterase Urine RBC Urine WBC Ur Squamous Epith Cells Urine Bacteria Urine Mucus Radiography Diagnostic Testing: Clinical Impression(s) from Imaging Studies Chest X-Ray 12/03/22 22:07 IMPRESSION: Cardiomegaly with vascular congestion and mild pulmonary edema. Electronically Signed: Paulie Hammer MD at 22:39 EDT Reading Location ID and State: [facility] / [place] Tel , Service support , Rhythm Strip Rhythm Strip: paced Rate: 110 Ectopy: PVC(s) EKG Initial EKG: Attestation: I personally reviewed and interpreted this EKG as follows: Comments: Ventricular paced rhythm at a rate of 109 bpm with PVCs present Normal axis Normal ST segments Management Discussion w/another healthcare provider: Hospitalist Discharge Plan Triage Chief Complaint: Complaint ED Provider: Dagmar Lombardi Dx/Rx/DC Orders Clinical Impression: Altered mental status, UTI (urinary tract infection), Anemia, History of chronic renal failure Prescriptions: No Action tamsulosin 0.4 mg capsule 0.4 mg PO QHS sevelamer carbonate 800 mg tablet 1,600 mg PO TIDCM midodrine 10 mg tablet 10 mg PO TID Rx Instructions: do not give last dose of day after 6PM or within 4 hrs of bedtime potassium chloride 20 mEq tablet extended release 20 meq PO DAILY Tradjenta 5 mg tablet 2.5 mg PO DAILY allopurinol 300 MG tablet 150 mg PO DAILY latanoprost 1 DROP bottle 1 drp EACH EYE QHS atorvastatin 80 mg Tablet 80 mg PO QHS ammonium lactate 12 % Lotion 1 applic TOPICAL BID Rx Instructions: APPLT 1 APPLICATION TOPICALLY TO BILATERAL LOWER EXT TWO TIMES A DAY FOR SEVERELY DRY SKIN aspirin 81 mg Tablet,Delayed Release (Dr/Ec) 81 mg PO DAILY aluminum-magnesium hydroxide 225-200 mg/5 mL Suspension 30 ml PO Q4H PRN (Reason: Acid Reflux) mupirocin 2 % Ointment 1 applic TOPICAL QHS Rx Instructions: APPLY 1 APPLICATION TO LEFT FOREARM AND FINGER TOPICALLY EVERY NIGHT FOR WOUND HEALING B complex with C 20-folic acid 1 mg Capsule 1 cap PO DAILY cinacalcet 60 mg Tablet 60 mg PO MOTUWEFR acetaminophen [Tylenol] 325 mg tablet 1,300 mg PO Q4H PRN (Reason: Pain) Primary Care Provider: Janene Griffin Referrals: Janene Griffin MD [Primary Care Provider] - Disposition Disposition: Acute Care [facility]
--- NOTE | 2022-12-04 00:42 | ED.RN ---
DIFFICULT TO RE INSERT AMES, 3RD ATTEMPT SUCCESSFUL WITH 16FR COUDE
[2022-12-04 01:49] LABS: Reflex Lactate? Y
[2022-12-04] MEDS: 0.9% Saline Lock 10 ML Syringe IV (01:56)
[2022-12-04] MEDS: 0.9% Normal Saline 1,000 ML 75 ML IV (01:57)
[2022-12-04] MEDS: Potassium Chloride Oral Tablet 20 MEQ 40 MEQ PO ×3 (01:57→17:16)
[2022-12-04 04:14] LABS: Absolute Lymphocyte Count 0.89 X10^3/uL (0.83-4.51); Absolute Neutrophil Count 10.8 X10^3/uL (2.0-7.7); Basophil# 0.05 X10^3/uL; Basophil% 0.4 % (0-1); Eosinophil# 0.05 X10^3/uL; Eosinophils% 0.4 % (0-5); Hematocrit 23.7 % (40-54); Hemoglobin 7.5 g/dL (13.0-16.5); Lymphocyte # 0.89 X10^3/ul (0.83-4.51); Mean Corp Hgb Conc 31.6 g/dL (32-36); Mean Corpuscular Hgb 27.3 pg (27.0-32.0); Mean Corpuscular Volume 86.2 fL (80-94); Mean Platelet Vol. 9.7 fl (6.2-12.0); Monocyte# 0.79 X10^3/uL; Monocyte% 6.3 % (0-10); NRBC Flagged by Analyzer 0 % (0-5); Neutrophil # 10.77 X10^3/uL (2.7-7.7); Neutrophil % 85.2 % (47-70); Platelet Count 228 K/mm3 (150-450); RBC Distribution Width CV 16.8 % (11.6-14.6); Red Blood Count 2.75 M/mm3 (4.6-6.2); White Blood Count 12.6 K/mm3 (4.4-11.0)
[2022-12-04 04:35] LABS: BNP,B-Type NATRIURETIC PEPTIDE 1337.1 pg/mL (0-100)
[2022-12-04 04:44] LABS: Lactic Acid 1.6 mmol/L (0.4-1.9)
[2022-12-04 04:59] LABS: ALB/GLOB Ratio 0.3 RATIO (0.9-2.4); AST(SGOT) 32 U/L (15-37); Alanine Aminotransfer ALT/SGPT 10 U/L (16-61); Albumin, Serum 1.7 g/dL (3.2-5.0); Alkaline Phosphatase 118 U/L (45-117); Anion Gap 4 (5-15); BUN 36 mg/dL (7-18); BUN/Creat Ratio 6.5 RATIO (10-20); Calcium,Total 8.2 mg/dL (8.5-10.1); Chloride 99 mmol/L (98-107); Creatinine, Serum 5.52 mg/dL (0.70-1.30); EST Glomerular Filtration Rate 11 mL/min (>60); Est Glom Filt Rate - Afr Amer 14 mL/min (>60); Estimated Creatinine Clearance 14.59 ml/min; Globulin 5.1 g/dL (2.2-4.2); Glucose 120 mg/dL (74-106); Potassium 3.1 mmol/L (3.5-5.1); Protein, Total 6.8 g/dL (6.4-8.2); Sodium Level 134 mmol/L (136-145)
[2022-12-04] MEDS: Midodrine HCl 5 MG Tablet 10 MG PO ×3 (07:01→22:09)
[2022-12-04 07:46] LABS: Bedside Glucose 122 mg/dL (74-106)
--- NOTE | 2022-12-04 08:07 | PN.HOSP_ITS ---
Reason for Visit Reason for Visit: Diagnoses Urinary tract infection, site not specified (12/03/22) Subjective Subjective Opens eyes to voice, but does not communicate with me, therefore, unable to gather any history from the patient. Objective Data Objective Data Vital Signs: Vital Signs Temp Pulse Resp BP Pulse Ox O2 Del Method 37.7 C H 110 H 16 117/84 H 93 Room Air 12/04/22 06:00 12/04/22 06:00 12/04/22 06:00 12/04/22 06:00 12/04/22 06:00 12/04/22 06:00 Oxygen Delivery Method Room Air Weight: 120 kg Body Mass Index (BMI) 37.0 Intake & Output: Intake and Output for Last 24 Hours 12/02/22 12/03/22 12/04/22 23:59 23:59 23:59 Intake Total 807 / 807 Output Total 850 / 850 Balance -43 / -43 Lab / Micro Data Result Diagrams: 12/04/22 03:56 12/04/22 03:56 Labs: Laboratory Results - last 24 hr 12/03/22 20:04: Urine Color SEE COMMENT BELOW, Urine Clarity Turbid, Urine pH 7.0, Ur Specific [place] 1.015, Urine Protein 500 H, Urine Glucose (UA) Normal, Urine Ketones Negative, Urine Occult Blood 150 H, Urine Nitrite Negative, Urine Bilirubin Negative, Urine Urobilinogen Normal, Ur Leukocyte Esterase 500 H, Urine RBC 0 SEEN, Urine WBC >100 SEEN, Ur Squamous Epith Cells 0 SEEN, Urine Bacteria 0 SEEN, Urine Mucus 0 SEEN 12/03/22 21:43: WBC 11.4 H, RBC 2.63 L, Hgb 7.2 L, Hct 22.9 L, MCV 87.1, MCH 27.4, MCHC 31.4 L, RDW Std Deviation 53.7 H, RDW Coeff of [place] 16.9 H, Plt Count 239, MPV 10.0, Immature Gran % (Auto) 1.100 H, Neut % (Auto) 81.4 H, Lymph % (Auto) 8.8 L, [place] % (Auto) 7.4, Eos % (Auto) 1.0, Baso % (Auto) 0.3, Absolute Neuts (auto) 9.3 H, Absolute Lymphs (auto) 1.01, Nucleated RBC % 0 12/03/22 21:43: PT 17.1 H, INR 1.4, APTT 39.2 H 12/03/22 21:43: Sodium 135 L, Potassium 3.1 L, Chloride 96 L, Carbon Dioxide 35.0 H, Anion Gap 4 L, BUN 34 H, Creatinine 5.13 H, Estim Creat Clear Calc 15.70, Est GFR (MDRD) Af Amer 15 L, Est GFR (MDRD) Non-Af 12 L, BUN/Creatinine Ratio 6.6 L, Glucose 142 H, Calcium 8.4 L, Total Bilirubin 0.50, AST 31, ALT 10 L, Alkaline Phosphatase 131 H, Total Protein 6.9, Albumin 1.8 L, Globulin 5.1 H, Albumin/Globulin Ratio 0.4 L 12/03/22 21:43: Lactic Acid 2.1 H* 12/03/22 21:43: Phosphorus 1.5 L, Magnesium 1.7 12/04/22 03:56: WBC 12.6 H, RBC 2.75 L, Hgb 7.5 L, Hct 23.7 L, MCV 86.2, MCH 27.3, MCHC 31.6 L, RDW Std Deviation 52.0 H, RDW Coeff of [place] 16.8 H, Plt Count 228, MPV 9.7, Immature Gran % (Auto) 0.700, Neut % (Auto) 85.2 H, Lymph % (Auto) 7.0 L, [place] % (Auto) 6.3, Eos % (Auto) 0.4, Baso % (Auto) 0.4, Absolute Neuts (auto) 10.8 H, Absolute Lymphs (auto) 0.89, Nucleated RBC % 0 12/04/22 03:56: Sodium 134 L, Potassium 3.1 L, Chloride 99, Carbon Dioxide 31.0, Anion Gap 4 L, BUN 36 H, Creatinine 5.52 H, Estim Creat Clear Calc 14.59, Est GFR (MDRD) Af Amer 14 L, Est GFR (MDRD) Non-Af 11 L, BUN/Creatinine Ratio 6.5 L, Glucose 120 H, Calcium 8.2 L, Total Bilirubin 0.50, AST 32, ALT 10 L, Alkaline Phosphatase 118 H, Total Protein 6.8, Albumin 1.7 L, Globulin 5.1 H, Albumin/Globulin Ratio 0.3 L 12/04/22 03:56: B-Natriuretic Peptide 1337.1 H 12/04/22 03:56: Lactic Acid 1.6 12/04/22 06:57: POC Glucose 122 H Radiography Diagnostic Testing: Radiology Impression Chest X-Ray 12/03/22 22:07 IMPRESSION: Cardiomegaly with vascular congestion and mild pulmonary edema. Electronically Signed: Paulie Hammer MD at 22:39 EDT , Rhythm Strip Rhythm Strip: paced Rate: 110 Ectopy: PVC(s) Physical Exam HEENT Mouth: dry mucous membranes Resp normal respiratory effort, no retractions and no use of accessory muscles Cardio regular rate, regular rhythm, S1 normal heart sound and S2 normal heart sound GI normal to inspection, nondistended, normoactive bowel sounds, soft to palpation, non-tender and non-distended Extremity normal to inspection Assessment & Plan Assessment/Plan (1) Sepsis: PLAN: Acute Sepsis secondary to Acute Encephalopathy secondary to Acute Complicated Urinary Tract Infection with chronic indwelling Barnes catheter with mild lactic acidosis (tachycardia, tachypnea, UTI source, mild lactic acidosis): Will admit to medical surgical floor, UA upon ED evaluation remarkable, pending UCx but previously has had decent sensitivities, will administer very judicious IV fluids given CHF history as well as chest x-ray findings although patient currently on room air, monitor I/Os, continue IV Rocephin w/ transition as able pending sensitivities and speciation. Bld cx x 2 obtained in the ED. (2) UTI (urinary tract infection): PLAN: UCx from 12/02 with GNR, non-manager architectural UCx pending on CTX (3) Hypokalemia: PLAN: Hypokalemia: Admission K+ 3.1, magnesium level requested, judicious supplementation given given end-stage renal disease on dialysis, repeat level in AM. Replace again. Magnesium 1.7, will replace (4) Encephalopathy: PLAN: hypoactive has had periods of bizarre behavior (see my note from 08/06/22). monitor avoid potentiating medications. PLAN: Plan The patient is a 61 y/o M w/ PMHx: Obesity, CAD, ESRD on HD (T, Th, Sat w/ Dr. Chavez), HTN, HLD, Chronic Combined CHF/Nonischemic Cardiomyopathy, Hx NSVT s/p AICD placement, Diabetes mellitus type II, Chronic anemia/AOCD/Fe deficiency anemia, RAQUEL, Chronic venous stasis disease who presents to the [facility] ED on 12/03/22 secondary to history of recent urinalysis that demonstrated possible urinary tract infection although he was not started on antibiotic therapy with urine culture pending with increased altered mental status and fatigue prompting skilled facility to transition patient to the ED for evaluation. Chronic conditions: * Chronic Combined CHF/Nonischemic cardiomyopathy: Chest x-ray with congestion with mild hypoxia with oxygenation 93 to 94% on room air but concern given #1 with IVF 500 cc administered per ED thus will continue to monitor and if needed may pulse dose IV lasix. Status post prior AICD placement, we will continue patient home aspirin, statin, not on STACY inhibitor/ARB, beta-keisha nor diuretic therapy with transition to midodrine. 06/23/2022 echocardiogram with normal LV size, EF 35%, moderately severe segmental systolic dysfunction with worsening of LV systolic function compared to prior echocardiogram. Will administer pulse dose Lasix 60 mg IV x1 especially given mild lactic acidosis with acute presentation * CAD: 06/2022 noted abnormal EKG and stress testing, catheterization w/ severe coronary artery disease with LAD disease and RCA stenosis with LV function of 35%, transferred to [facility] at that time, unclear exact interventions and from last noted cardiology notes records have been requested. * ESRD: Patient with ongoing MWF HD regimen, will consult Dr. Chavez for ongoing HD needs, continue home midodrine regimen. * Chronic anemia, AOCD, iron deficiency anemia: Admission hemoglobin 7.2, baseline primarily 9-10 range however most recent prior to this 12/02/2022 hemoglobin 7.5, continue iron supplementation, trend CBC and if hemoglobin does decrease less than 7 would plan PRBC administration. In the past patient has vacillated and been as low as in the 7 range as well. * Diabetes mellitus type II: Hold oral home regimen, ADA diet, accu checks w/ ISS. * Hypertension: Patient previously from most recent cardiology note/10/08/2022 had been on Coreg regimen however following transition to [facility] this was discontinued and patient has been transitioned onto midodrine therapy, as noting very judiciously hydrating given #1 and may need to pulse dose IV lasix given #3, will have as needed IV hydralazine. * hyperlipidemia: We will continue patient on statin therapy. * BPH: We will continue patient on Flomax regimen. 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 * Morbid Obesity: Weight loss and lifestyle changes encouraged, nutrition consulted. * RAQUEL: Continue CPAP nightly if amenable. * Gout: We will continue patient home allopurinol regimen. DVT prophylaxis: Heparin. CODE status: Full Code per facility paperwork. Charges/Coding Visit Charges Inpatient E&M: 15074 Subs Hosp L2
[2022-12-04] MEDS: SEVELAMER CARBONATE 800 MG TABLET 1600 MG PO ×3 (08:24→17:16)
[2022-12-04] MEDS: Potassium Chloride Oral Tablet 20 MEQ PO (08:26)
[2022-12-04] MEDS: Heparin Injection (Vial) 5,000 UNIT/ML VIAL 5000 UNIT SC ×2 (09:11→22:13)
[2022-12-04] MEDS: Folic Acid/Vitamin B Comp W-C 1 Capsule 1 CAP PO (09:11)
[2022-12-04] MEDS: Allopurinol 300 MG Tablet 150 MG PO (09:11)
[2022-12-04] MEDS: Aspirin E.C. 81 MG Tablet PO (09:11)
[2022-12-04] MEDS: Ammonium Lactate 225 gm Bottle 1 APPLIC TOPICAL ×2 (09:12→22:10)
--- NOTE | 2022-12-04 10:44 | PCM.CONS.R ---
Assessment & Plan Assessment/Plan (1) End-stage renal disease on hemodialysis: (2) UTI (urinary tract infection): (3) Encephalopathy: (4) Hypokalemia: (5) Anemia in chronic kidney disease: PLAN: Plan - ESRD on HD Thu//Thu/Thu schedule, followed by Dr. Chavez. We have been consulted as we are covering for Dr. Chavez these next few days. 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 We will plan for dialysis tomorrow over 4 hours on 3K bath. We will determine outpatient EDW to determine UF amount with dialysis tomorrow. Chest x-ray showed mild vascular congestion, mild pulmonary edema. Patient is on room air. -UTI; urine culture and blood cultures pending. Patient is on IV antibiotics, ceftriaxone -Anemia of chronic disease. Patient receives SUNNY and iron with dialysis. Current hemoglobin is 7.5. We will monitor hemoglobin trends. -History of hypotension on midodrine 10 mg 3 times daily. Blood pressures acceptable. HPI Consult Data Date of Consult: 12/04/22 HPI Narrative HPI Narrative: JUVENCIO QUINTERO, is a 61 M with history of ESRD on hemodialysis at [facility] on a Thursday, Thursday, Thursday, Thursday schedule, hypertension, history of nonischemic cardiomyopathy and NSVT status post AICD placement, diabetes mellitus type 2 who was brought to the emergency room for evaluation of confusion and possible UTI from the intermediate. Patient is followed by Dr. Omaira Chavez from nephrology. Nephrology consulted for dialysis needs during hospitalization. Patient awakens and is alert but quickly falls back to sleep. Information is gathered from the chart and nursing staff. [facility] Medical History Ambulates with cane Atherosclerosis of [place] coronary artery of [place] heart without angina pectoris Benign prostatic hyperplasia Chronic diastolic (congestive) heart failure Chronic indwelling Barnes catheter Diabetes mellitus, type II End-stage renal disease on hemodialysis Essential hypertension Barnes catheter in place Gout Hydronephrosis concurrent with and due to calculi of kidney and ureter Hyperlipidemia ICD (implantable cardioverter-defibrillator) in place Iron deficiency anemia Left bundle branch block (LBBB) Morbid obesity Non-ischemic cardiomyopathy Non-smoker Nonsustained ventricular tachycardia Open wound RAQUEL (obstructive sleep apnea) Right foot drop Secondary hyperparathyroidism (of renal origin) Sleep apnea Venous ulcer of left lower extremity without varicose veins Walker as ambulation aid Wears glasses Home Medications allopurinol 300 mg tablet 150 mg PO DAILY GOUT 01/27/16 [History Last Taken 08/05/22] latanoprost 0.005 % eye drops 1 drp EACH EYE QHS GLAUCOMA 12/23/18 [History Last Taken 08/05/22] tamsulosin 0.4 mg capsule 0.4 mg PO QHS PROSTATE 06/21/19 [History Last Taken 08/01/22] acetaminophen 325 mg tablet (Tylenol) 1,300 mg PO Q4H PRN Pain 08/06/22 [History Last Taken 08/04/22] aluminum-magnesium hydroxide 225 mg-200 mg/5 mL oral suspension 30 ml PO Q4H PRN Acid Reflux 08/06/22 [History Last Taken 07/31/22] ammonium lactate 12 % lotion 1 applic topical BID SEVERE DRY SKIN 08/06/22 [History Last Taken 08/06/22] aspirin 81 mg tablet,delayed release 81 mg PO DAILY HEART HEALTH 08/06/22 [History Last Taken 08/05/22] atorvastatin 80 mg tablet 80 mg PO QHS CHOLESTEROL 08/06/22 [History Last Taken 08/05/22] cinacalcet 60 mg tablet 30 mg PO MOWEFR SUPPLEMENT 08/06/22 [History Last Taken 08/05/22] mupirocin 2 % topical ointment 1 applic topical QHS WOUND HEALING 08/06/22 [History Last Taken 08/05/22] vitamin B complex and vitamin C no.20-folic acid 1 mg capsule 1 cap PO DAILY SUPPLEMENT 08/06/22 [History Last Taken 08/05/22] midodrine 10 mg tablet 10 mg PO TID Check with primary doctor 10/08/22 [History Last Taken Unknown] sitagliptin phosphate 25 mg tablet (Januvia) 25 mg PO DAILY Check with primary doctor 12/04/22 [History Last Taken Unknown] Allergy/AdvReac Type Severity Reaction Status Date / Time aluminum Allergy PT UNSURE Verified 12/03/22 20:16 OF REACTION amoxicillin [From Augmentin] Allergy PT UNSURE Verified 12/03/22 20:16 OF REACTION clavulanic acid Allergy PT UNSURE Verified 12/03/22 20:16 [From Augmentin] OF REACTION Family History Father Hypertension Heart disease Diabetes Mother Diabetes Chronic kidney disease Hypertension Anemia Surgical History H/O skin graft History of tonsillectomy and adenoidectomy Hx of appendectomy Hx of tonsillectomy Presence of biventricular implantable cardioverter-defibrillator (ICD) (05/14/11) Social History household members: none Smoking Status: Never smoker alcohol intake: never substance use type: does not use caffeine: Yes ROS ROS Narrative Unable to obtain, see HPI Physical Exam Narrative Alert, no apparent distress S1, S2, RRR Lung sounds clear anteriorly no wheezes, rhonchi or rales noted. No expiratory wheezing noted Soft, positive bowel sounds Right forearm AV fistula positive thrill and bruit No pitting edema noted bilateral lower legs Indwelling Barnes with cola colored urine noted in bag Lab / Micro Data Result Diagrams: 12/04/22 03:56 12/04/22 03:56 Labs: Laboratory Results - last 24 hr 12/03/22 20:04: Urine Color SEE COMMENT BELOW, Urine Clarity Turbid, Urine pH 7.0, Ur Specific [place] 1.015, Urine Protein 500 H, Urine Glucose (UA) Normal, Urine Ketones Negative, Urine Occult Blood 150 H, Urine Nitrite Negative, Urine Bilirubin Negative, Urine Urobilinogen Normal, Ur Leukocyte Esterase 500 H, Urine RBC 0 SEEN, Urine WBC >100 SEEN, Ur Squamous Epith Cells 0 SEEN, Urine Bacteria 0 SEEN, Urine Mucus 0 SEEN 12/03/22 21:43: WBC 11.4 H, RBC 2.63 L, Hgb 7.2 L, Hct 22.9 L, MCV 87.1, MCH 27.4, MCHC 31.4 L, RDW Std Deviation 53.7 H, RDW Coeff of Jeffrey 16.9 H, Plt Count 239, MPV 10.0, Immature Gran % (Auto) 1.100 H, Neut % (Auto) 81.4 H, Lymph % (Auto) 8.8 L, [place] % (Auto) 7.4, Eos % (Auto) 1.0, Baso % (Auto) 0.3, Absolute Neuts (auto) 9.3 H, Absolute Lymphs (auto) 1.01, Nucleated RBC % 0 12/03/22 21:43: PT 17.1 H, INR 1.4, APTT 39.2 H 12/03/22 21:43: Sodium 135 L, Potassium 3.1 L, Chloride 96 L, Carbon Dioxide 35.0 H, Anion Gap 4 L, BUN 34 H, Creatinine 5.13 H, Estim Creat Clear Calc 15.70, Est GFR (MDRD) Af Amer 15 L, Est GFR (MDRD) Non-Af 12 L, BUN/Creatinine Ratio 6.6 L, Glucose 142 H, Calcium 8.4 L, Total Bilirubin 0.50, AST 31, ALT 10 L, Alkaline Phosphatase 131 H, Total Protein 6.9, Albumin 1.8 L, Globulin 5.1 H, Albumin/Globulin Ratio 0.4 L 12/03/22 21:43: Lactic Acid 2.1 H* 12/03/22 21:43: Phosphorus 1.5 L, Magnesium 1.7 12/04/22 03:56: WBC 12.6 H, RBC 2.75 L, Hgb 7.5 L, Hct 23.7 L, MCV 86.2, MCH 27.3, MCHC 31.6 L, RDW Std Deviation 52.0 H, RDW Coeff of Jeffrey 16.8 H, Plt Count 228, MPV 9.7, Immature Gran % (Auto) 0.700, Neut % (Auto) 85.2 H, Lymph % (Auto) 7.0 L, [place] % (Auto) 6.3, Eos % (Auto) 0.4, Baso % (Auto) 0.4, Absolute Neuts (auto) 10.8 H, Absolute Lymphs (auto) 0.89, Nucleated RBC % 0 12/04/22 03:56: Sodium 134 L, Potassium 3.1 L, Chloride 99, Carbon Dioxide 31.0, Anion Gap 4 L, BUN 36 H, Creatinine 5.52 H, Estim Creat Clear Calc 14.59, Est GFR (MDRD) Af Amer 14 L, Est GFR (MDRD) Non-Af 11 L, BUN/Creatinine Ratio 6.5 L, Glucose 120 H, Calcium 8.2 L, Total Bilirubin 0.50, AST 32, ALT 10 L, Alkaline Phosphatase 118 H, Total Protein 6.8, Albumin 1.7 L, Globulin 5.1 H, Albumin/Globulin Ratio 0.3 L 12/04/22 03:56: B-Natriuretic Peptide 1337.1 H 12/04/22 03:56: Lactic Acid 1.6 12/04/22 06:57: POC Glucose 122 H Rhythm Strip Rhythm Strip: paced Rate: 110 Ectopy: PVC(s) Radiology Impression Chest X-Ray 12/03/22 22:07 IMPRESSION: Cardiomegaly with vascular congestion and mild pulmonary edema. Electronically Signed: Paulie Hammer MD at 22:39 EDT ,
[2022-12-04 12:20] LABS: Bedside Glucose 120 mg/dL (74-106)
[2022-12-04 18:00] LABS: Bedside Glucose 134 mg/dL (74-106)
[2022-12-04] MEDS: Acetaminophen 325 MG Tablet 650 MG PO (22:06)
[2022-12-04] MEDS: Ceftriaxone 1 GM/50 ML BAG IV (22:06)
[2022-12-04] MEDS: Atorvastatin Calcium 80 MG Tablet PO (22:10)
[2022-12-04] MEDS: Tamsulosin HCl 0.4 MG Capsule PO (22:11)
[2022-12-04] MEDS: Latanoprost 0.005% 1 Bottle 1 DRP EACH EYE (22:19)
[2022-12-04 23:31] LABS: Bedside Glucose 121 mg/dL (74-106)
[2022-12-05] VITALS (11 sets, daily range): BP systolic 102–137; BP diastolic 63–79; PULSE 98–110; RESP 16–22; TEMP 36.1–37.2; O2SAT 93–99; BMI 37.1
--- NOTE | 2022-12-05 01:56 | PCM.HOSP.N ---
Hospitalist Note Patient with hypoxia, increased oxygen needs and noted coughing per staff. Will obtain CXR, continue supplementation.
--- NOTE | 2022-12-05 05:20 | RAD_ITS ---
INDICATION: Dyspnea, cough EXAMINATION/TECHNIQUE: X-RAY - XR Chest 1 View COMPARISON: Chest radiograph 12/03/2022. Findings: 2 frontal views of the chest. LUNG PARENCHYMA: Low lung volumes with interval worsening of patchy bilateral groundglass airspace disease. PLEURA: No pleural effusion. No pneumothorax. HEART/GREAT VESSELS: Cardiomediastinal silhouette is enlarged. Left chest multilead pacemaker device in place. BONES: Osseous structures are unremarkable for age. RAD/Chest 1 View (Portable) IMPRESSION: Low lung volumes with interval worsening of patchy bilateral groundglass airspace disease from 2 days prior. Electronically Signed: Boone Singh MD at 6:05 EDT ,
--- NOTE | 2022-12-05 05:36 | CPS ---
Pt doesn't wear cpap at home and does not want to wear ours either.
[2022-12-05] MEDS: Midodrine HCl 5 MG Tablet 10 MG PO ×3 (06:12→21:01)
[2022-12-05 06:47] LABS: Absolute Lymphocyte Count 0.94 X10^3/uL (0.83-4.51); Absolute Neutrophil Count 6.6 X10^3/uL (2.0-7.7); Basophil# 0.04 X10^3/uL; Basophil% 0.5 % (0-1); Eosinophil# 0.12 X10^3/uL; Eosinophils% 1.4 % (0-5); Hematocrit 21.3 % (40-54); Hemoglobin 6.6 g/dL (13.0-16.5); Lymphocyte # 0.94 X10^3/ul (0.83-4.51); Lymphocyte % 11.2 % (19-41); Mean Corpuscular Hgb 27.2 pg (27.0-32.0); Mean Corpuscular Volume 87.7 fL (80-94); Mean Platelet Vol. 9.6 fl (6.2-12.0); Monocyte# 0.57 X10^3/uL; Monocyte% 6.8 % (0-10); NRBC Flagged by Analyzer 0 % (0-5); Platelet Count 198 K/mm3 (150-450); RBC Distribution Width CV 17.2 % (11.6-14.6); RBC Distribution Width SD 55.2 fl (35.1-43.9); Red Blood Count 2.43 M/mm3 (4.6-6.2); White Blood Count 8.4 K/mm3 (4.4-11.0)
[2022-12-05 07:20] LABS: Anion Gap 4 (5-15); BUN 50 mg/dL (7-18); BUN/Creat Ratio 6.8 RATIO (10-20); Chloride 103 mmol/L (98-107); EST Glomerular Filtration Rate 8 mL/min (>60); Est Glom Filt Rate - Afr Amer 10 mL/min (>60); Estimated Creatinine Clearance 10.88 ml/min; Glucose 104 mg/dL (74-106); Sodium Level 137 mmol/L (136-145)
[2022-12-05 07:40] LABS: Bedside Glucose 100 mg/dL (74-106)
--- NOTE | 2022-12-05 08:25 | PCM.PN.HOSP ---
Reason for Visit Reason for Visit: Diagnoses Sepsis, unspecified organism (12/03/22) Hypokalemia (12/03/22) Encephalopathy, unspecified (12/03/22) Urinary tract infection, site not specified (12/03/22) Subjective Subjective Feels sick. Objective Data Objective Data Vital Signs: Vital Signs Temp Pulse Resp BP Pulse Ox O2 Del Method O2 Flow Rate 36.6 C 98 18 116/79 94 Nasal Cannula 4 12/05/22 04:00 12/05/22 04:00 12/05/22 04:00 12/05/22 04:00 12/05/22 07:20 12/05/22 07:20 12/05/22 07:20 Oxygen Flow Rate (L/min) 4 Oxygen Delivery Method Nasal Cannula Weight: 120.8 kg Body Mass Index (BMI) 37.1 Intake & Output: Intake and Output for Last 24 Hours 12/03/22 12/04/22 12/05/22 23:59 23:59 23:59 Intake Total 1911 / 1961 100 / 100 Output Total 1150 / 1300 150 / 150 Balance 761 / 661 -50 / -50 Lab / Micro Data Result Diagrams: 12/05/22 06:35 12/05/22 06:35 Labs: Laboratory Results - last 24 hr 12/04/22 12:00: POC Glucose 120 H 12/04/22 17:22: POC Glucose 134 H 12/04/22 22:38: POC Glucose 121 H 12/05/22 06:35: WBC 8.4, RBC 2.43 L, Hgb 6.6 L, Hct 21.3 L, MCV 87.7, MCH 27.2, MCHC 31.0 L, RDW Std Deviation 55.2 H, RDW Coeff of Jeffrey 17.2 H, Plt Count 198, MPV 9.6, Immature Gran % (Auto) 1.100 H, Neut % (Auto) 79.0 H, Lymph % (Auto) 11.2 L, [place] % (Auto) 6.8, Eos % (Auto) 1.4, Baso % (Auto) 0.5, Absolute Neuts (auto) 6.6, Absolute Lymphs (auto) 0.94, Nucleated RBC % 0 12/05/22 06:35: Sodium 137, Potassium 4.0, Chloride 103, Carbon Dioxide 30.0, Anion Gap 4 L, BUN 50 H, Creatinine 7.40 H, Estim Creat Clear Calc 10.88, Est GFR (MDRD) Af Amer 10 L, Est GFR (MDRD) Non-Af 8 L, BUN/Creatinine Ratio 6.8 L, Glucose 104, Calcium 8.0 L 12/05/22 07:09: POC Glucose 100 Radiography Diagnostic Testing: Radiology Impression Chest X-Ray 12/05/22 05:20 IMPRESSION: Low lung volumes with interval worsening of patchy bilateral groundglass airspace disease from 2 days prior. Electronically Signed: Boone Singh MD at 6:05 EDT , Rhythm Strip Rhythm Strip: paced Rate: 110 Ectopy: PVC(s) Physical Exam Const alert Constitutional Narrative: interactive today. Resp normal respiratory effort, no retractions, no use of accessory muscles and clear to auscultation bilaterally Cardio regular rate, regular rhythm, S1 normal heart sound and S2 normal heart sound GI normal to inspection, nondistended, normoactive bowel sounds, soft to palpation and non-tender Extremity normal to inspection Assessment & Plan Assessment/Plan (1) Sepsis: PLAN: Acute Sepsis secondary to Acute Encephalopathy secondary to Acute Complicated Urinary Tract Infection with chronic indwelling Barnes catheter with mild lactic acidosis (tachycardia, tachypnea, UTI source, mild lactic acidosis): Will admit to medical surgical floor, UA upon ED evaluation remarkable, pending UCx but previously has had decent sensitivities, will administer very judicious IV fluids given CHF history as well as chest x-ray findings although patient currently on room air, monitor I/Os, continue IV Rocephin w/ transition as able pending sensitivities and speciation. Bld cx x 2 obtained in the ED. 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 Replace again. Magnesium 1.7, will replace (4) Encephalopathy: PLAN: hypoactive. Improving has had periods of bizarre behavior (see my note from 08/06/22). monitor avoid potentiating medications. (5) Acute blood loss anemia: PLAN: Transfuse 1 unit monitor PLAN: Plan The patient is a 61 y/o M w/ PMHx: Obesity, CAD, ESRD on HD (T, Th, Sat w/ Dr. Chavez), HTN, HLD, Chronic Combined CHF/Nonischemic Cardiomyopathy, Hx NSVT s/p AICD placement, Diabetes mellitus type II, Chronic anemia/AOCD/Fe deficiency anemia, RAQUEL, Chronic venous stasis disease who presents to the [facility] ED on 12/03/22 secondary to history of recent urinalysis that demonstrated possible urinary tract infection although he was not started on antibiotic therapy with urine culture pending with increased altered mental status and fatigue prompting skilled facility to transition patient to the ED for evaluation. Chronic conditions: Chronic Combined CHF/Nonischemic cardiomyopathy: Chest x-ray with congestion with mild hypoxia with oxygenation 93 to 94% on room air but concern given #1 with IVF 500 cc administered per ED thus will continue to monitor and if needed may pulse dose IV lasix. Status post prior AICD placement, we will continue patient home aspirin, statin, not on STACY inhibitor/ARB, beta-keisha nor diuretic therapy with transition to midodrine. 06/23/2022 echocardiogram with normal LV size, EF 35%, moderately severe segmental systolic dysfunction with worsening of LV systolic function compared to prior echocardiogram. Will administer pulse dose Lasix 60 mg IV x1 especially given mild lactic acidosis with acute presentation CAD: 06/2022 noted abnormal EKG and stress testing, catheterization w/ severe coronary artery disease with LAD disease and RCA stenosis with LV function of 35%, transferred to [facility] at that time, unclear exact interventions and from last noted cardiology notes records have been requested. ESRD: Patient with ongoing MWF HD regimen, will consult Dr. Chavez for ongoing HD needs, continue home midodrine regimen. Chronic anemia, AOCD, iron deficiency anemia: Admission hemoglobin 7.2, baseline primarily 9-10 range however most recent prior to this 12/02/2022 hemoglobin 7.5, continue iron supplementation, trend CBC and if hemoglobin does decrease less than 7 would plan PRBC administration. In the past patient has vacillated and been as low as in the 7 range as well. Diabetes mellitus type II: Hold oral home regimen, ADA diet, accu checks w/ ISS. Hypertension: Patient previously from most recent cardiology note/10/08/2022 had been on Coreg regimen however following transition to [facility] this was discontinued and patient has been transitioned onto midodrine therapy, as noting very judiciously hydrating given #1 and may need to pulse dose IV lasix given #3, will have as needed IV hydralazine. hyperlipidemia: We will continue patient on statin therapy. BPH: We will continue patient on Flomax regimen. 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 Morbid Obesity: Weight loss and lifestyle changes encouraged, nutrition consulted. RAQUEL: Continue CPAP nightly if amenable. Gout: We will continue patient home allopurinol regimen. DVT prophylaxis: DC heparin and change to SCDs given anemia. CODE status: Full Code per facility paperwork. Charges/Coding Visit Charges Inpatient E&M: 74864 Subs Hosp L2
[2022-12-05] MEDS: Ammonium Lactate 225 gm Bottle 1 APPLIC TOPICAL ×2 (08:59→21:00)
[2022-12-05] MEDS: Aspirin E.C. 81 MG Tablet PO (09:00)
[2022-12-05] MEDS: Cinacalcet HCl 30 MG Tablet 60 MG PO (09:00)
[2022-12-05] MEDS: SEVELAMER CARBONATE 800 MG TABLET 1600 MG PO ×2 (09:01→11:33)
[2022-12-05] MEDS: Folic Acid/Vitamin B Comp W-C 1 Capsule 1 CAP PO (09:01)
--- NOTE | 2022-12-05 09:29 | PCM.PN.REN ---
Subjective Subjective Patient more alert and oriented today. No overnight events. Denies any complaints. Objective Data Objective Data Vital Signs: Vital Signs Temp Pulse Resp BP Pulse Ox O2 Del Method O2 Flow Rate 98.2 F 100 18 102/78 96 Nasal Cannula 4 12/05/22 08:46 12/05/22 08:46 12/05/22 08:46 12/05/22 08:46 12/05/22 08:46 12/05/22 08:46 12/05/22 08:46 Oxygen Flow Rate (L/min) 4 Oxygen Delivery Method Nasal Cannula Weight: 120.8 kg Body Mass Index (BMI) 37.1 Intake & Output: Intake and Output for Last 24 Hours 12/03/22 12/04/22 12/05/22 23:59 23:59 23:59 Intake Total 1911 / 1961 100 / 100 Output Total 1150 / 1300 150 / 150 Balance 761 / 661 -50 / -50 Lab / Micro Data Result Diagrams: 12/05/22 06:35 12/05/22 06:35 Labs: Laboratory Results - last 24 hr 12/04/22 12:00: POC Glucose 120 H 12/04/22 17:22: POC Glucose 134 H 12/04/22 22:38: POC Glucose 121 H 12/05/22 06:35: WBC 8.4, RBC 2.43 L, Hgb 6.6 L, Hct 21.3 L, MCV 87.7, MCH 27.2, MCHC 31.0 L, RDW Std Deviation 55.2 H, RDW Coeff of Jeffrey 17.2 H, Plt Count 198, MPV 9.6, Immature Gran % (Auto) 1.100 H, Neut % (Auto) 79.0 H, Lymph % (Auto) 11.2 L, [place] % (Auto) 6.8, Eos % (Auto) 1.4, Baso % (Auto) 0.5, Absolute Neuts (auto) 6.6, Absolute Lymphs (auto) 0.94, Nucleated RBC % 0 12/05/22 06:35: Sodium 137, Potassium 4.0, Chloride 103, Carbon Dioxide 30.0, Anion Gap 4 L, BUN 50 H, Creatinine 7.40 H, Estim Creat Clear Calc 10.88, Est GFR (MDRD) Af Amer 10 L, Est GFR (MDRD) Non-Af 8 L, BUN/Creatinine Ratio 6.8 L, Glucose 104, Calcium 8.0 L 12/05/22 07:09: POC Glucose 100 12/05/22 08:55: Crossmatch See Detail Radiography Diagnostic Testing: Radiology Impression Chest X-Ray 12/05/22 05:20 IMPRESSION: Low lung volumes with interval worsening of patchy bilateral groundglass airspace disease from 2 days prior. Electronically Signed: Boone Singh MD at 6:05 EDT , Rhythm Strip Rhythm Strip: paced Rate: 110 Ectopy: PVC(s) Physical Exam Narrative Alert and oriented, in no apparent distress S1, S2, RRR Lung sounds clear anteriorly no wheezes, rhonchi or rales noted. abdomen soft, positive bowel sounds Right forearm AV fistula positive thrill and bruit trace edema noted bilateral lower legs Indwelling Barnes with cola colored urine noted in bag and sediment in tubing Assessment & Plan Assessment/Plan (1) End-stage renal disease on hemodialysis: (2) UTI (urinary tract infection): (3) Encephalopathy: (4) Hypokalemia: (5) Anemia in chronic kidney disease: PLAN: Plan - ESRD on HD Thu//Thu/Thu schedule at [facility] last dialyzed Thursday, followed by Dr. Chavez. We will plan for dialysis today over 3.5 hours on 3K bath. Outpatient EDW 121 kg. Today's weight 120.8kg. Chest x-ray showed mild vascular congestion, mild pulmonary edema. Patient is on room air. We will attempt around 1-2 L fluid removal as patient/blood pressure tolerates. Quite possibly EDW will need to be lowered. -UTI; urine culture and blood cultures pending. Patient is on IV antibiotics, ceftriaxone -Anemia of chronic disease. Patient receives SUNNY and iron with dialysis. Hemoglobin is 6.6 today and patient to receive PRBC. We will continue to monitor hemoglobin trends. -History of hypotension on midodrine 10 mg 3 times daily. Blood pressures acceptable.
--- NOTE | 2022-12-05 10:37 | CASEMGMT ---
SW met with patient. Introduced self and role at [facility]. Patient confirmed he is from [facility] and his plan is to return. Updates were sent to [facility] and patient does not require pre-cert to return. Giselle SCHMITT
[2022-12-05] MEDS: Allopurinol 300 MG Tablet 150 MG PO (11:34)
[2022-12-05 11:55] LABS: Bedside Glucose 99 mg/dL (74-106)
[2022-12-05 17:15] LABS: Bedside Glucose 93 mg/dL (74-106)
[2022-12-05] MEDS: MELATONIN 3 MG TABLET PO (20:59)
[2022-12-05] MEDS: Tamsulosin HCl 0.4 MG Capsule PO (21:00)
[2022-12-05] MEDS: Latanoprost 0.005% 1 Bottle 1 DRP EACH EYE (21:01)
[2022-12-05] MEDS: Atorvastatin Calcium 80 MG Tablet PO (21:01)
[2022-12-05] MEDS: Ceftriaxone 1 GM/50 ML BAG IV (21:02)
[2022-12-05] MEDS: 0.9% Saline Lock 10 ML Syringe IV (21:02)
[2022-12-05 21:21] LABS: Bedside Glucose 91 mg/dL (74-106)
[2022-12-06 02:06] LABS: Bedside Glucose 84 mg/dL (74-106)
[2022-12-06] MEDS: guaiFENesin 10 ML UDC (200MG/10ML) PO (02:35)
[2022-12-06 04:03] VITALS: BP 110/75; PULSE 88; RESP 16; TEMP 37.1; O2SAT 98
[2022-12-06] MEDS: Midodrine HCl 5 MG Tablet 10 MG PO ×2 (05:17→13:58)
[2022-12-06 06:00] VITALS: BMI 36.8
[2022-12-06 06:55] LABS: Bedside Glucose 91 mg/dL (74-106)
[2022-12-06 07:01] LABS: Absolute Lymphocyte Count 0.98 X10^3/uL (0.83-4.51); Absolute Neutrophil Count 5.9 X10^3/uL (2.0-7.7); Basophil# 0.03 X10^3/uL; Basophil% 0.4 % (0-1); Eosinophil# 0.27 X10^3/uL; Eosinophils% 3.5 % (0-5); Hematocrit 26.1 % (40-54); Hemoglobin 7.8 g/dL (13.0-16.5); Lymphocyte # 0.98 X10^3/ul (0.83-4.51); Lymphocyte % 12.7 % (19-41); Mean Corp Hgb Conc 29.9 g/dL (32-36); Mean Corpuscular Hgb 26.6 pg (27.0-32.0); Mean Corpuscular Volume 89.1 fL (80-94); Mean Platelet Vol. 9.9 fl (6.2-12.0); Monocyte# 0.46 X10^3/uL; NRBC Flagged by Analyzer 0 % (0-5); Neutrophil # 5.87 X10^3/uL (2.7-7.7); Neutrophil % 76.1 % (47-70); Platelet Count 202 K/mm3 (150-450); RBC Distribution Width CV 17.1 % (11.6-14.6); RBC Distribution Width SD 55.6 fl (35.1-43.9); Red Blood Count 2.93 M/mm3 (4.6-6.2); White Blood Count 7.7 K/mm3 (4.4-11.0)
[2022-12-06 07:26] LABS: Anion Gap 4 (5-15); BUN 28 mg/dL (7-18); BUN/Creat Ratio 5.5 RATIO (10-20); Calcium,Total 7.9 mg/dL (8.5-10.1); Chloride 101 mmol/L (98-107); Creatinine, Serum 5.05 mg/dL (0.70-1.30); EST Glomerular Filtration Rate 12 mL/min (>60); Est Glom Filt Rate - Afr Amer 15 mL/min (>60); Estimated Creatinine Clearance 15.95 ml/min; Glucose 88 mg/dL (74-106); Sodium Level 134 mmol/L (136-145)
[2022-12-06 07:55] VITALS: O2SAT 95
--- NOTE | 2022-12-06 07:58 | PN.HOSP_ITS ---
Reason for Visit Reason for Visit: Diagnoses Sepsis, unspecified organism (12/03/22) Acute posthemorrhagic anemia (12/03/22) Hypokalemia (12/03/22) Encephalopathy, unspecified (12/03/22) Urinary tract infection, site not specified (12/03/22) Subjective Subjective No new issues. Objective Data Objective Data Vital Signs: Vital Signs Temp Pulse Resp BP Pulse Ox O2 Del Method O2 Flow Rate 37.1 C 88 16 110/75 95 Nasal Cannula 2 12/06/22 04:03 12/06/22 04:03 12/06/22 04:03 12/06/22 04:03 12/06/22 07:55 12/06/22 07:55 12/06/22 07:55 Oxygen Flow Rate (L/min) 2 Oxygen Delivery Method Nasal Cannula Weight: 119.8 kg Body Mass Index (BMI) 36.8 Intake & Output: Intake and Output for Last 24 Hours 12/04/22 12/05/22 12/06/22 23:59 23:59 23:59 Intake Total 1911 / 1961 1450 / 1690 360 / 360 Output Total 1150 / 1300 350 / 450 100 / 100 Balance 761 / 661 1100 / 1240 260 / 260 Lab / Micro Data Result Diagrams: 12/06/22 06:53 12/06/22 06:53 Labs: Laboratory Results - last 24 hr 12/05/22 08:55: Blood Type B POSITIVE, Antibody Screen NEGATIVE, Crossmatch See Detail 12/05/22 11:32: POC Glucose 99 12/05/22 16:55: POC Glucose 93 12/05/22 20:59: POC Glucose 91 12/06/22 01:43: POC Glucose 84 12/06/22 03:05: COVID-19 (KELLEN) Not Detected 12/06/22 06:35: POC Glucose 91 12/06/22 06:53: WBC 7.7, RBC 2.93 L, Hgb 7.8 L, Hct 26.1 L, MCV 89.1, MCH 26.6 L , MCHC 29.9 L, RDW Std Deviation 55.6 H, RDW Coeff of Jeffrey 17.1 H, Plt Count 202, MPV 9.9, Immature Gran % (Auto) 1.300 H, Neut % (Auto) 76.1 H, Lymph % (Auto) 12.7 L, [place] % (Auto) 6.0, Eos % (Auto) 3.5, Baso % (Auto) 0.4, Absolute Neuts (auto) 5.9, Absolute Lymphs (auto) 0.98, Nucleated RBC % 0 12/06/22 06:53: Sodium 134 L, Potassium 4.0, Chloride 101, Carbon Dioxide 29.0, Anion Gap 4 L, BUN 28 H, Creatinine 5.05 H, Estim Creat Clear Calc 15.95, Est GFR (MDRD) Af Amer 15 L, Est GFR (MDRD) Non-Af 12 L, BUN/Creatinine Ratio 5.5 L, Glucose 88, Calcium 7.9 L Micro: Microbiology 12/03/22 20:04 Urine Catheter - Catheter Urine Culture - Final Proteus mirabilis 12/06/22 03:05 Mucosa - Nasopharyngeal Respiratory Panel (PCR) - Final Rhinovirus 12/03/22 22:10 Blood Culture (Wb) - Arm Left Blood Culture - Preliminary No growth in 48 hours. 12/03/22 21:43 Blood Culture (Wb) - Left Forearm Blood Culture - Preliminary No growth in 48 hours. Rhythm Strip Rhythm Strip: paced Rate: 110 Ectopy: PVC(s) Physical Exam Const alert and no apparent distress Resp normal respiratory effort, no retractions, no use of accessory muscles and clear to auscultation bilaterally Cardio regular rate, regular rhythm, S1 normal heart sound and S2 normal heart sound GI GI Narrative: blood in lucero bag Assessment & Plan Assessment/Plan (1) Sepsis: PLAN: Acute Sepsis secondary to Acute Encephalopathy secondary to Acute Complicated Urinary Tract Infection with chronic indwelling Lucero catheter with mild lactic acidosis (tachycardia, tachypnea, UTI source, mild lactic acidosis): Will admit to medical surgical floor, UA upon ED evaluation remarkable, pending UCx but previously has had decent sensitivities, will administer very judicious IV fluids given CHF history as well as chest x-ray findings although patient currently on room air, monitor I/Os, continue IV Rocephin w/ transition as able pending sensitivities and speciation. Bld cx x 2 obtained in the ED. (2) UTI (urinary tract infection): PLAN: UCx from 12/02 with Proteus UCx pending on CTX Can change to TMP/SMX QOD (3) Hypokalemia: PLAN: Hypokalemia: Admission K+ 3.1, magnesium level requested, judicious supplementation given given end-stage renal disease on dialysis, repeat level in AM. Replace again. Magnesium 1.7, will replace (4) Encephalopathy: PLAN: hypoactive. Improving has had periods of bizarre behavior (see my note from 08/06/22). monitor avoid potentiating medications. (5) Acute blood loss anemia: PLAN: Improved Transfuse 1 unit monitor Had transient hematuria Pt has chronic lucero. Continue. Follow up with as outpt. PLAN: Plan The patient is a 61 y/o M w/ PMHx: Obesity, CAD, ESRD on HD (T, Th, Sat w/ Dr. Chavez), HTN, HLD, Chronic Combined CHF/Nonischemic Cardiomyopathy, Hx NSVT s/p AICD placement, Diabetes mellitus type II, Chronic anemia/AOCD/Fe deficiency anemia, RAQUEL, Chronic venous stasis disease who presents to the [facility] ED on 12/03/22 secondary to history of recent urinalysis that demonstrated possible urinary tract infection although he was not started on antibiotic therapy with urine culture pending with increased altered mental status and fatigue prompting skilled facility to transition patient to the ED for evaluation. Chronic conditions: * Chronic Combined CHF/Nonischemic cardiomyopathy: Chest x-ray with congestion with mild hypoxia with oxygenation 93 to 94% on room air but concern given #1 with IVF 500 cc administered per ED thus will continue to monitor and if needed may pulse dose IV lasix. Status post prior AICD placement, we will continue patient home aspirin, statin, not on STACY inhibitor/ARB, beta-keisha nor diuretic therapy with transition to midodrine. 06/23/2022 echocardiogram with normal LV size, EF 35%, moderately severe segmental systolic dysfunction with worsening of LV systolic function compared to prior echocardiogram. Will administer pulse dose Lasix 60 mg IV x1 especially given mild lactic acidosis with acute presentation * CAD: 06/2022 noted abnormal EKG and stress testing, catheterization w/ severe coronary artery disease with LAD disease and RCA stenosis with LV function of 35%, transferred to [facility] at that time, unclear exact interventions and from last noted cardiology notes records have been requested. * ESRD: Patient with ongoing MWF HD regimen, will consult Dr. Chavez for ongoing HD needs, continue home midodrine regimen. * Chronic anemia, AOCD, iron deficiency anemia: Admission hemoglobin 7.2, baseline primarily 9-10 range however most recent prior to this 12/02/2022 hemoglobin 7.5, continue iron supplementation, trend CBC and if hemoglobin does decrease less than 7 would plan PRBC administration. In the past patient has vacillated and been as low as in the 7 range as well. * Diabetes mellitus type II: Hold oral home regimen, ADA diet, accu checks w/ ISS. * Hypertension: Patient previously from most recent cardiology note/10/08/2022 had been on Coreg regimen however following transition to [facility] this was discontinued and patient has been transitioned onto midodrine therapy, as noting very judiciously hydrating given #1 and may need to pulse dose IV lasix given #3, will have as needed IV hydralazine. * hyperlipidemia: We will continue patient on statin therapy. * BPH: We will continue patient on Flomax regimen. 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 * Morbid Obesity: Weight loss and lifestyle changes encouraged, nutrition consulted. * RAQUEL: Continue CPAP nightly if amenable. * Gout: We will continue patient home allopurinol regimen. DVT prophylaxis: DC heparin and change to SCDs given anemia. CODE status: Full Code per facility paperwork. Charges/Coding Visit Charges Inpatient E&M: 73913 Subs Hosp L2
[2022-12-06] MEDS: Aspirin E.C. 81 MG Tablet PO (10:55)
[2022-12-06] MEDS: Folic Acid/Vitamin B Comp W-C 1 Capsule 1 CAP PO (10:55)
[2022-12-06] MEDS: Allopurinol 300 MG Tablet 150 MG PO (10:56)
[2022-12-06] MEDS: Ammonium Lactate 225 gm Bottle 1 APPLIC TOPICAL (10:56)
[2022-12-06] MEDS: SEVELAMER CARBONATE 800 MG TABLET 1600 MG PO (11:01)
[2022-12-06 11:03] VITALS: BP 125/48; PULSE 98; RESP 16; TEMP 36.6; O2SAT 100
[2022-12-06 11:09] VITALS: O2SAT 94
[2022-12-06 11:30] LABS: Bedside Glucose 93 mg/dL (74-106)
--- NOTE | 2022-12-06 12:35 | TREXTCAR_ITS ---
Diet Diet Order/Speech Therapy: 12/04/22 01:22 Diet: Renal - General Food consistency:: Regular Liquid Consistency:: Regular/Thin Is pt able to select menu?: No Routine Orders/Code Status Change Lucero Catheter: per routine Routine Lab Work: CBC and BMP Code Status: Full Code Wound(s) left lateral ankle: Wound Type: Pressure Injury left fa: Wound Type: Abrasion Therapies Physical Therapy: Eval and Treat Occupational Therapy: Eval and Treat Problem/Diagnosis (1) Sepsis: Status: Acute Code(s): A41.9 - Sepsis, unspecified organism Plan: Acute Sepsis secondary to Acute Encephalopathy secondary to Acute Complicated Urinary Tract Infection with chronic indwelling Lucero catheter with mild lactic acidosis (tachycardia, tachypnea, UTI source, mild lactic acidosis): Will admit to medical surgical floor, UA upon ED evaluation remarkable, pending UCx but pre viously has had decent sensitivities, will administer very judicious IV fluids given CHF history as well as chest x-ray findings although patient currently on room air, monitor I/Os, continue IV Rocephin w/ transition as able pending sensitivities and speciation. Bld cx x 2 obtained in the ED. (2) UTI (urinary tract infection): Status: Acute Code(s): N39.0 - Urinary tract infection, site not specified Plan: UCx from 12/02 with Proteus UCx pending on CTX Can change to TMP/SMX QOD (3) Hypokalemia: Status: Acute Code(s): E87.6 - Hypokalemia Plan: Hypokalemia: Admission K+ 3.1, magnesium level requested, judicious supplementation given given end-stage renal disease on dialysis, repeat level in AM. Replace again. Magnesium 1.7, will replace (4) Encephalopathy: Status: Acute Code(s): G93.40 - Encephalopathy, unspecified Plan: hypoactive. Improving has had periods of bizarre behavior (see my note from 08/06/22). monitor avoid potentiating medications. (5) Acute blood loss anemia: Status: Acute Code(s): D62 - Acute posthemorrhagic anemia Plan: Improved Transfuse 1 unit monitor Had transient hematuria Pt has chronic lucero. Continue. Follow up with as outpt. Plan The patient is a 61 y/o M w/ PMHx: Obesity, CAD, ESRD on HD (T, Th, Sat w/ Dr. Chavez), HTN, HLD, Chronic Combined CHF/Nonischemic Cardiomyopathy, Hx NSVT s/p AICD placement, Diabetes mellitus type II, Chronic anemia/AOCD/Fe deficiency anemia, RAQUEL, Chronic venous stasis disease who presents to the [facility] ED on 12/03/22 secondary to history of recent urinalysis that demonstrated possible urinary tract infection although he was not started on antibiotic therapy with urine culture pending with increased altered mental status and fatigue prompting skilled facility to transition patient to the ED for evaluation. Chronic conditions: * Chronic Combined CHF/Nonischemic cardiomyopathy: Chest x-ray with congestion with mild hypoxia with oxygenation 93 to 94% on room air but concern given #1 with IVF 500 cc administered per ED thus will continue to monitor and if needed may pulse dose IV lasix. Status post prior AICD placement, we will continue patient home aspirin, statin, not on STACY inhibitor/ARB, beta-keisha nor diuretic therapy with transition to midodrine. 06/23/2022 echocardiogram with normal LV size, EF 35%, moderately severe segmental systolic dysfunction with worsening of LV systolic function compared to prior echocardiogram. Will administer pulse dose Lasix 60 mg IV x1 especially given mild lactic acidosis with acute presentation * CAD: 06/2022 noted abnormal EKG and stress testing, catheterization w/ severe coronary artery disease with LAD disease and RCA stenosis with LV function of 35%, transferred to [facility] at that time, unclear exact interventions and from last noted cardiology notes records have been requested. * ESRD: Patient with ongoing MWF HD regimen, will consult Dr. Chavez for ongoing HD needs, continue home midodrine regimen. * Chronic anemia, AOCD, iron deficiency anemia: Admission hemoglobin 7.2, baseline primarily 9-10 range however most recent prior to this 12/02/2022 hemoglobin 7.5, continue iron supplementation, trend CBC and if hemoglobin does decrease less than 7 would plan PRBC administration. In the past patient has vacillated and been as low as in the 7 range as well. * Diabetes mellitus type II: Hold oral home regimen, ADA diet, accu checks w/ ISS. * Hypertension: Patient previously from most recent cardiology note/10/08/2022 had been on Coreg regimen however following transition to [facility] this was discontinued and patient has been transitioned onto midodrine therapy, as noting very judiciously hydrating given #1 and may need to pulse dose IV lasix given #3, will have as needed IV hydralazine. * hyperlipidemia: We will continue patient on statin therapy. * BPH: We will continue patient on Flomax regimen. 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 * Morbid Obesity: Weight loss and lifestyle changes encouraged, nutrition consulted. * RAQUEL: Continue CPAP nightly if amenable. * Gout: We will continue patient home allopurinol regimen. DVT prophylaxis: DC heparin and change to SCDs given anemia. CODE status: Full Code per facility paperwork. Allergies/Procedures Done in Hospital Allergies aluminum Allergy (Verified 12/03/22 20:16) PT UNSURE OF REACTION amoxicillin [From Augmentin] Allergy (Verified 12/03/22 20:16) PT UNSURE OF REACTION clavulanic acid [From Augmentin] Allergy (Verified 12/03/22 20:16) PT UNSURE OF REACTION Procedures: None Type of Care/Length of Stay Estimated LOS: More Than 30 Days Type of Care Needed: Intermediate Rehab Potential: Fair Prognosis: Fair Additional Orders/Day of Discharge Day of Discharge: 12/06/22 Dietary and Speech Recommendations Dietitian Recommendations/Changes: will adjust diet to renal-general; will monitor PO intake, labs, and adjust diet/add ONS as indicated. Discharge Plan Admission Admit Date/Time: 12/03/22 23:10 Primary Reason for Your Visit: UTI. encephalopathy Attending Provider: Chevy Jeffries Primary Care Provider: Janene Griffin Consulting Providers: Carole Roberts ; Cece Paul Instructions Additional Instructions / Restrictions: Dialysis Thursday, Thursday, Thursday, Thursday with Dr. Omaira Chavez. Discharge Orders/Prescriptions Prescriptions: New sulfamethoxazole-trimethoprim [Bactrim DS] 800-160 mg tablet 1 tab PO .q48 Qty: 3 0RF Continued tamsulosin 0.4 mg capsule 0.4 mg PO QHS midodrine 10 mg tablet 10 mg PO TID Rx Instructions: do not give last dose of day after 6PM or within 4 hrs of bedtime allopurinol 300 MG tablet 150 mg PO DAILY latanoprost 1 DROP bottle 1 drp EACH EYE QHS atorvastatin 80 mg Tablet 80 mg PO QHS ammonium lactate 12 % Lotion 1 applic TOPICAL BID Rx Instructions: APPLT 1 APPLICATION TOPICALLY TO BILATERAL LOWER EXT TWO TIMES A DAY FOR SEVERELY DRY SKIN aluminum-magnesium hydroxide 225-200 mg/5 mL Suspension 30 ml PO Q4H PRN (Reason: Acid Reflux) mupirocin 2 % Ointment 1 applic TOPICAL QHS Rx Instructions: APPLY 1 APPLICATION TO LEFT FOREARM AND FINGER TOPICALLY EVERY NIGHT FOR WOUND HEALING B complex with C 20-folic acid 1 mg Capsule 1 cap PO DAILY cinacalcet 60 mg Tablet 30 mg PO MOWEFR acetaminophen [Tylenol] 325 mg tablet 1,300 mg PO Q4H PRN (Reason: Pain) Held aspirin 81 mg Tablet,Delayed Release (Dr/Ec) 81 mg PO DAILY Hold Instructions: Resume on 12/09/22. Discontinued Januvia 25 mg tablet 25 mg PO DAILY Referrals / Follow Up: Janene Griffin MD [Primary Care Provider] - Within 2 Weeks Disposition Disposition (needs filled in before D/C Order can be placed): NonSkilled NH/Intermed Care
--- NOTE | 2022-12-06 12:42 | DS.PCM_ITS ---
Providers Date of Admission: 12/03/22 Primary Care Physician: Dr. Janene Griffin MD Consultations 12/04/22 01:22 Consult: Nephrology Routine Consulting Provider: Cece Paul Reason for Consult: ESRD on HD EMERGENT Consult: No MD Notified: Yes Date Notified: 12/04/22 Time Notified: 07:55 Method of Notification: Text Reason For Visit: SEPSIS, ENCEPHALOPATHY, UTI Diagnosis Discharge Diagnosis (1) Sepsis: Status: Acute Code(s): A41.9 - Sepsis, unspecified organism Plan: Acute Sepsis secondary to Acute Encephalopathy secondary to Acute Complicated Urinary Tract Infection with chronic indwelling Lucero catheter with mild lactic acidosis (tachycardia, tachypnea, UTI source, mild lactic acidosis): Will admit to medical surgical floor, UA upon ED evaluation remarkable, pending UCx but previously has had decent sensitivities, will administer very judicious IV fluids given CHF history as well as chest x-ray findings although patient currently on room air, monitor I/Os, continue IV Rocephin w/ transition as able pending sensitivities and speciation. Bld cx x 2 obtained in the ED. (2) UTI (urinary tract infection): Status: Acute Code(s): N39.0 - Urinary tract infection, site not specified Plan: UCx from 12/02 with Proteus UCx pending on CTX Can change to TMP/SMX QOD (3) Hypokalemia: Status: Acute Code(s): E87.6 - Hypokalemia Plan: Hypokalemia: Admission K+ 3.1, magnesium level requested, judicious supplementation given given end-stage renal disease on dialysis, repeat level in AM. Replace again. Magnesium 1.7, will replace (4) Encephalopathy: Status: Acute Code(s): G93.40 - Encephalopathy, unspecified Plan: hypoactive. Improving has had periods of bizarre behavior (see my note from 08/06/22). monitor avoid potentiating medications. (5) Acute blood loss anemia: Status: Acute Code(s): D62 - Acute posthemorrhagic anemia Plan: Improved Transfuse 1 unit monitor Had transient hematuria Pt has chronic lucero. Continue. Follow up with as outpt. Plan The patient is a 61 y/o M w/ PMHx: Obesity, CAD, ESRD on HD (T, Th, Sat w/ Dr. Chavez), HTN, HLD, Chronic Combined CHF/Nonischemic Cardiomyopathy, Hx NSVT s/p AICD placement, Diabetes mellitus type II, Chronic anemia/AOCD/Fe deficiency anemia, RAQUEL, Chronic venous stasis disease who presents to the [facility] ED on 12/03/22 secondary to history of recent urinalysis that demonstrated possible urinary tract infection although he was not started on antibiotic therapy with urine culture pending with increased altered mental status and fatigue prompting skilled facility to transition patient to the ED for evaluation. Chronic conditions: * Chronic Combined CHF/Nonischemic cardiomyopathy: Chest x-ray with congestion with mild hypoxia with oxygenation 93 to 94% on room air but concern given #1 with IVF 500 cc administered per ED thus will continue to monitor and if needed may pulse dose IV lasix. Status post prior AICD placement, we will continue patient home aspirin, statin, not on STACY inhibitor/ARB, beta-keisha nor diuretic therapy with transition to midodrine. 06/23/2022 echocardiogram with normal LV size, EF 35%, moderately severe segmental systolic dysfunction with worsening of LV systolic function compared to prior echocardiogram. Will administer pulse dose Lasix 60 mg IV x1 especially given mild lactic acidosis with acute presentation * CAD: 06/2022 noted abnormal EKG and stress testing, catheterization w/ severe coronary artery disease with LAD disease and RCA stenosis with LV function of 35%, transferred to [facility] at that time, unclear exact interventions and from last noted cardiology notes records have been requested. * ESRD: Patient with ongoing MWF HD regimen, will consult Dr. Chavez for ongoing HD needs, continue home midodrine regimen. * Chronic anemia, AOCD, iron deficiency anemia: Admission hemoglobin 7.2, baseline primarily 9-10 range however most recent prior to this 12/02/2022 hemoglobin 7.5, continue iron supplementation, trend CBC and if hemoglobin does decrease less than 7 would plan PRBC administration. In the past patient has vacillated and been as low as in the 7 range as well. * Diabetes mellitus type II: Hold oral home regimen, ADA diet, accu checks w/ ISS. * Hypertension: Patient previously from most recent cardiology note/10/08/2022 had been on Coreg regimen however following transition to [facility] this was discontinued and patient has been transitioned onto midodrine t herapy, as noting very judiciously hydrating given #1 and may need to pulse dose IV lasix given #3, will have as needed IV hydralazine. * hyperlipidemia: We will continue patient on statin therapy. * BPH: We will continue patient on Flomax regimen. 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 * Morbid Obesity: Weight loss and lifestyle changes encouraged, nutrition con sulted. * RAQUEL: Continue CPAP nightly if amenable. * Gout: We will continue patient home allopurinol regimen. DVT prophylaxis: DC heparin and change to SCDs given anemia. CODE status: Full Code per facility paperwork. Medications at Discharge Home Medications allopurinol 300 mg tablet 150 mg PO DAILY GOUT 01/27/16 latanoprost 0.005 % eye drops 1 drp EACH EYE QHS GLAUCOMA 12/23/18 tamsulosin 0.4 mg capsule 0.4 mg PO QHS PROSTATE 06/21/19 acetaminophen 325 mg tablet (Tylenol) 1,300 mg PO Q4H PRN Pain 08/06/22 aluminum-magnesium hydroxide 225 mg-200 mg/5 mL oral suspension 30 ml PO Q4H PRN Acid Reflux 08/06/22 ammonium lactate 12 % lotion 1 applic topical BID SEVERE DRY SKIN 08/06/22 aspirin 81 mg tablet,delayed release 81 mg PO DAILY HEART HEALTH 08/06/22 atorvastatin 80 mg tablet 80 mg PO QHS CHOLESTEROL 08/06/22 cinacalcet 60 mg tablet 30 mg PO MOWEFR SUPPLEMENT 08/06/22 mupirocin 2 % topical ointment 1 applic topical QHS WOUND HEALING 08/06/22 vitamin B complex and vitamin C no.20-folic acid 1 mg capsule 1 cap PO DAILY SUPPLEMENT 08/06/22 midodrine 10 mg tablet 10 mg PO TID Check with primary doctor 10/08/22 sulfamethoxazole 800 mg-trimethoprim 160 mg tablet (Bactrim DS) 1 tab PO .q48 #3 tabs 12/06/22 Hospital Course Operations None Procedures None Summary of Care Provided Minutes Spent on Discharge: 28 Weight / BMI Weight Weight: 119.8 kg Body Mass Index (BMI) 36.8 ABG / Lab / Microbiology Data Result Diagrams: 12/06/22 06:53 12/06/22 06:53 Laboratory: Laboratory Results - last 24 hr 12/05/22 08:55: Blood Type B POSITIVE, Antibody Screen NEGATIVE, Crossmatch See Detail 12/05/22 16:55: POC Glucose 93 12/05/22 20:59: POC Glucose 91 12/06/22 01:43: POC Glucose 84 12/06/22 03:05: COVID-19 (KELLEN) Not Detected 12/06/22 06:35: POC Glucose 91 12/06/22 06:53: WBC 7.7, RBC 2.93 L, Hgb 7.8 L, Hct 26.1 L, MCV 89.1, MCH 26.6 L , MCHC 29.9 L, RDW Std Deviation 55.6 H, RDW Coeff of Jeffrey 17.1 H, Plt Count 202, MPV 9.9, Immature Gran % (Auto) 1.300 H, Neut % (Auto) 76.1 H, Lymph % (Auto) 12.7 L, Bowman % (Auto) 6.0, Eos % (Auto) 3.5, Baso % (Auto) 0.4, Absolute Neuts (auto) 5.9, Absolute Lymphs (auto) 0.98, Nucleated RBC % 0 12/06/22 06:53: Sodium 134 L, Potassium 4.0, Chloride 101, Carbon Dioxide 29.0, Anion Gap 4 L, BUN 28 H, Creatinine 5.05 H, Estim Creat Clear Calc 15.95, Est GFR (MDRD) Af Amer 15 L, Est GFR (MDRD) Non-Af 12 L, BUN/Creatinine Ratio 5.5 L, Glucose 88, Calcium 7.9 L 12/06/22 11:12: POC Glucose 93 Microbiology: Microbiology 12/03/22 20:04 Urine Catheter - Catheter Urine Culture - Final Proteus mirabilis 12/06/22 03:05 Mucosa - Nasopharyngeal Respiratory Panel (PCR) - Final Rhinovirus 12/03/22 22:10 Blood Culture (Wb) - Arm Left Blood Culture - Preliminary No growth in 48 hours. 12/03/22 21:43 Blood Culture (Wb) - Left Forearm Blood Culture - Preliminary No growth in 48 hours. Meaningful Use Info Meaningful Use Diagnoses (Choose all that apply): None applicable Discharge Plan Admission Admit Date/Time: 12/03/22 23:10 Primary Reason for Your Visit: UTI. encephalopathy Attending Provider: Chevy Jeffries Primary Care Provider: Janene Griffin Consulting Providers: Carole Roberts ; Cece Paul Instructions Additional Instructions / Restrictions: Dialysis Thursday, Thursday, Thursday, Thursday with Dr. Omaira Chavez. Discharge Orders/Prescriptions Prescriptions: New sulfamethoxazole-trimethoprim [Bactrim DS] 800-160 mg tablet 1 tab PO .q48 Qty: 3 0RF Continued tamsulosin 0.4 mg capsule 0.4 mg PO QHS midodrine 10 mg tablet 10 mg PO TID Rx Instructions: do not give last dose of day after 6PM or within 4 hrs of bedtime allopurinol 300 MG tablet 150 mg PO DAILY latanoprost 1 DROP bottle 1 drp EACH EYE QHS atorvastatin 80 mg Tablet 80 mg PO QHS ammonium lactate 12 % Lotion 1 applic TOPICAL BID Rx Instructions: APPLT 1 APPLICATION TOPICALLY TO BILATERAL LOWER EXT TWO TIMES A DAY FOR SEVERELY DRY SKIN aluminum-magnesium hydroxide 225-200 mg/5 mL Suspension 30 ml PO Q4H PRN (Reason: Acid Reflux) mupirocin 2 % Ointment 1 applic TOPICAL QHS Rx Instructions: APPLY 1 APPLICATION TO LEFT FOREARM AND FINGER TOPICALLY EVERY NIGHT FOR WOUND HEALING B complex with C 20-folic acid 1 mg Capsule 1 cap PO DAILY cinacalcet 60 mg Tablet 30 mg PO MOWEFR acetaminophen [Tylenol] 325 mg tablet 1,300 mg PO Q4H PRN (Reason: Pain) Held aspirin 81 mg Tablet,Delayed Release (Dr/Ec) 81 mg PO DAILY Hold Instructions: Resume on 12/09/22. Discontinued Januvia 25 mg tablet 25 mg PO DAILY Referrals / Follow Up: Janene Griffin MD [Primary Care Provider] - Within 2 Weeks Disposition Disposition (needs filled in before D/C Order can be placed): NonSkilled NH/Inte rmed Care Charges/Coding Visit Charges Inpatient E&M: 05480 Disch Hosp
[2022-12-06 14:18] VITALS: BP 120/76; PULSE 98; RESP 16; TEMP 36.7; O2SAT 95
--- NOTE | 2022-12-06 14:47 | NURSING ---
Report called to [facility] at [facility].
== END 2022-12-06 14:48 | disposition intermediate care facility (04) | DRG 698 ==
LOC: ED 12-04 00:15 → PCU 12-04 02:09
PROVIDERS: Admitting Provider Family Medicine; Emergency Provider Emergency Medicine; PCP Internal Medicine
DX: T83.511A Infection and inflammatory reaction due to indwelling urethral catheter, initial encounter (principal); N18.6 End stage renal disease; A41.9 Sepsis, unspecified organism; G93.41 Metabolic encephalopathy; I13.2 Hypertensive heart and chronic kidney disease with heart failure and with stage 5 chronic kidney disease, or end stage renal disease; I42.8 Other cardiomyopathies; D62 Acute posthemorrhagic anemia; I50.42 Chronic combined systolic (congestive) and diastolic (congestive) heart failure; D63.1 Anemia in chronic kidney disease; E11.22 Type 2 diabetes mellitus with diabetic chronic kidney disease; Z99.2 Dependence on renal dialysis; E66.01 Morbid (severe) obesity due to excess calories; E78.5 Hyperlipidemia, unspecified; E87.6 Hypokalemia; I25.10 Atherosclerotic heart disease of native coronary artery without angina pectoris; D50.9 Iron deficiency anemia, unspecified; G47.33 Obstructive sleep apnea (adult) (pediatric); M10.9 Gout, unspecified; E86.0 Dehydration; N39.0 Urinary tract infection, site not specified; R31.9 Hematuria, unspecified; B96.4 Proteus (mirabilis) (morganii) as the cause of diseases classified elsewhere; R09.02 Hypoxemia; N40.0 Benign prostatic hyperplasia without lower urinary tract symptoms; Z79.84 Long term (current) use of oral hypoglycemic drugs; Z79.82 Long term (current) use of aspirin; Z79.899 Other long term (current) drug therapy; Z95.810 Presence of automatic (implantable) cardiac defibrillator; Z68.37 Body mass index [BMI] 37.0-37.9, adult
CPT/HCPCS: 36415; 71045; 80048; 80053; 81001; 82962; 83605; 83735; 83880; 84100; 85025; 85610; 85730; 86850; 86900; 86901; 86920; 86922; 87040; 87077; 87086; 87088; 87186; 87426; 87633; 87635; 93005; 97110; 97162; 97166; 99285; J7030; J7040; J7050; P9016; A4216; J0696; U0003; U0005

== ENCOUNTER 2022-12-15 09:09 | Inpatient (IN) | payer MEDICARE, MEDICAID, SELFPAY ==
[2022-12-15] VITALS (12 sets, daily range): BP systolic 121–138; BP diastolic 82–100; PULSE 22–104; RESP 18–88; TEMP 36.1–36.8; O2SAT 88–100; BMI 39.0; BMI 38.7
--- NOTE | 2022-12-15 09:16 | ED.VIS.DYS ---
HPI History of Present Illness Chief Complaint: Shortness of Breath Narrative Narrative: 61-year-old male here for shortness of breath. Per EMS patient was saturating in the 80s. Per patient he had a dry cough. He states shortness of breath was worse this morning. The patient denies recent surgery in the last 4 weeks or immobilization in the last 3 days, denies previous diagnosis of DVT or PE, hemoptysis, unilateral leg swelling or malignancy with treatment the last 6 months. No estrogen use noted.. Denies any bleeding diathesis such as melena, hematochezia, hematemesis or hemoptysis. Patient notes no lower extremity edema orthopnea. States he gets dialysis Thursday. States his last dialysis session was Thursday. States he completed the entire session. Denies any chest pain. [facility] Medical History Ambulates with cane Atherosclerosis of [place] coronary artery of [place] heart without angina pectoris Benign prostatic hyperplasia Chronic diastolic (congestive) heart failure Chronic indwelling Barnes catheter Diabetes mellitus, type II End-stage renal disease on hemodialysis Essential hypertension Barnes catheter in place Gout Hydronephrosis concurrent with and due to calculi of kidney and ureter Hyperlipidemia ICD (implantable cardioverter-defibrillator) in place Iron deficiency anemia Left bundle branch block (LBBB) Morbid obesity Non-ischemic cardiomyopathy Non-smoker Nonsustained ventricular tachycardia Open wound RAQUEL (obstructive sleep apnea) Right foot drop Secondary hyperparathyroidism (of renal origin) Sleep apnea Venous ulcer of left lower extremity without varicose veins Walker as ambulation aid Wears glasses Home Medications allopurinol 300 mg tablet 150 mg PO DAILY GOUT 01/27/16 [History Last Taken 08/05/22] latanoprost 0.005 % eye drops 1 drp EACH EYE QHS GLAUCOMA 12/23/18 [History Last Taken 08/05/22] tamsulosin 0.4 mg capsule 0.4 mg PO QHS PROSTATE 06/21/19 [History Last Taken 08/01/22] acetaminophen 325 mg tablet (Tylenol) 1,300 mg PO Q4H PRN Pain 08/06/22 [History Last Taken 08/04/22] aluminum-magnesium hydroxide 225 mg-200 mg/5 mL oral suspension 30 ml PO Q4H PRN Acid Reflux 08/06/22 [History Last Taken 07/31/22] ammonium lactate 12 % lotion 1 applic topical BID SEVERE DRY SKIN 08/06/22 [History Last Taken 08/06/22] aspirin 81 mg tablet,delayed release 81 mg PO DAILY HEART HEALTH 08/06/22 [History Last Taken 08/05/22] atorvastatin 80 mg tablet 80 mg PO QHS CHOLESTEROL 08/06/22 [History Last Taken 08/05/22] cinacalcet 60 mg tablet 30 mg PO MOWEFR SUPPLEMENT 08/06/22 [History Last Taken 08/05/22] mupirocin 2 % topical ointment 1 applic topical QHS WOUND HEALING 08/06/22 [History Last Taken 08/05/22] vitamin B complex and vitamin C no.20-folic acid 1 mg capsule 1 cap PO DAILY SUPPLEMENT 08/06/22 [History Last Taken 08/05/22] midodrine 10 mg tablet 10 mg PO TID Check with primary doctor 10/08/22 [History Last Taken Unknown] sulfamethoxazole 800 mg-trimethoprim 160 mg tablet (Bactrim DS) 1 tab PO .q48 #3 tabs 12/06/22 [Rx Last Taken Unknown] Allergy/AdvReac Type Severity Reaction Status Date / Time aluminum Allergy PT UNSURE Verified 12/15/22 09:18 OF REACTION amoxicillin [From Augmentin] Allergy PT UNSURE Verified 12/15/22 09:18 OF REACTION clavulanic acid Allergy PT UNSURE Verified 12/15/22 09:18 [From Augmentin] OF REACTION Family History Father Hypertension Heart disease Diabetes Mother Diabetes Chronic kidney disease Hypertension Anemia Surgical History H/O skin graft History of tonsillectomy and adenoidectomy Hx of appendectomy Hx of tonsillectomy Presence of biventricular implantable cardioverter-defibrillator (ICD) (05/14/11) Social History household members: none Smoking Status: Never smoker alcohol intake: never substance use type: does not use caffeine: Yes ROS ROS ED ROS Narrative Constitutional: Denies fever HEENT: Denies sore throat Neck: Denies neck pain Cardiovascular: Denies chest pain, syncope Respiratory: Endorses shortness of breath, dry cough GI: Denies nausea vomiting or abdominal pain : Denies changes in urinary habits Musculoskeletal: Denies muscle or joint pain Neurologic: Denies numbness weakness or loss of sensation Skin denies rash EXAM Physical Exam Narrative Exam Narrative: Nursing triage notes reviewed, Vital signs reviewed Constitutional: please see mdm HENT: MMM, nasal cannula in place Eyes: Pupils equal round and reactive to light, Extraocular muscles intact Neck: No stridor, no JVD, full neck ROM Lungs: Diminished breath sounds throughout, poor air movement, rales/crackles noted in bilateral lung goff. No increased work of breathing, no conversational dyspnea, no accessory muscle use, no nasal flaring. No respiratory distress noted Heart: Regular rate and rhythm, No murmurs, No rubs and No gallops, 2+ distal pulses (radial, femoral, posterior tibial) in all extremities Abdomen: Soft, there is no tenderness, rigidity, rebound or guarding, no obvious peritoneal signs, no palpable pulsatile abdominal masses, no auscultated abdominal bruit : No CVAT Extremities: No edema Neuro: No focal neurological deficits, cranial nerves II through XII intact, 5/5 strength in all extremities. Intact sensation to light touch in all extremities, 2+ reflexes bilateral patella dens. Normal gait. No ataxia. Skin: No rash or lesions noted Const Vital Signs: 12/15/22 09:10 12/15/22 09:16 12/15/22 09:17 Temperature 97.5 F L 97.5 F L Temperature Source Oral Oral Pulse Rate 22 L 104 H Respiratory Rate 88 H 28 H Respiratory Effort Short of Breath Respiratory Depth Shallow Respiratory Pattern Tachypnea Blood Pressure 129/96 H 129/96 H Blood Pressure Mean 107 107 Pulse Ox 93 Oxygen Delivery Method Nasal Cannula Room Air Oxygen Flow Rate (L/min) 2 MDM MDM MDM Narrative Medical decision making narrative: Chief Complaint: Shortness of breath External records reviewed: Seen on 12/04/2022 for acute blood loss anemia. He was admitted at that time for UTI MDM: Patient was initially hemodynamically stable, tachypneic saturating at 93% by nasal cannula. There is a new oxygen requirement for the patient. Lungs had bilateral rales versus crackles. Physical exam concerning for volume overload. I considered the following differential diagnosis: CHF exacerbation, pneumonia, COVID, arrhythmia, anemia, PE, COPD, volume overload secondary to inadequate dialysis I considered pulmonary embolism as a potential etiology however the patient had a low risk Wells score and as such I did not obtain a CT of the chest. There is no wheezing on exam to suggest COPD. I obtained a broad lab and imaging work-up to further elucidate the etiology of the patient's complaint. Labs and images were remarkable for evidence of severe volume overload which could be secondary ESRD versus CHF. There is no leukocytosis or chest x-ray findings to suggest pneumonia EKG without evidence of STEMI however patient did have evidence of an elevated troponin without baseline comparison. Patient's labs also showed severe hyponatremia. Hyponatremia is suggestive of volume overload as well. Given this I added on a VBG to assess if the patient had any signs of acidosis. Given his new oxygen requirement, volume overload, need for urgent dialysis he will need inpatient mission to telemetry. I will discuss this with the hospitalist. Discussed with hospitalist. Recommended nephrology consultation. I will consult nephrology. Spoke to Dr. Chavez (steel post installer supervisor) she is aware the patient will attempt to expedite dialysis as the patient is admitted to the PCU.. Factors affecting care: end-stage renal disease, ICD placement, nonischemic cardiomyopathy, hypertension, hyperlipidemia, diabetes mellitus and chronic indwelling Barnes catheter Social determinants of health: Poor health literacy History obtained from others: EMS Shared decision making: I will have a discussion with the patient and or visitors regarding risk/benefits of further testing or admission. They will be made aware of of the risk/benefits inherent in this decision they will be given the opportunity to voice understanding. Consults: Internal medicine, nephrology Lab Data Attestation: I reviewed the patient's lab results. Lab results narrative: EKG with ventricular paced rhythm, rate of 105, right axis deviation, prolonged QT, no obvious STEMI or change from prior EKG on November 2022 CBC with no leukocytosis, severe baseline anemia, no thrombocytopenia BMP with severe hyponatremia, ESRD with essentially baseline creatinine, no anion gap Troponin elevated consistent with myocardial ischemia there may be component of demand ischemia given the patient's end-stage renal disease Labs: Laboratory Results - last 24 hr 12/15/22 12/15/22 09:40 09:40 WBC 8.6 RBC 2.86 L Hgb 7.6 L Hct 26.1 L MCV 91.3 MCH 26.6 L MCHC 29.1 L RDW Std Deviation 61.1 H RDW Coeff of Jeffrey 18.4 H Plt Count 169 MPV 10.2 Immature Gran % (Auto) 0.600 Neut % (Auto) 81.1 H Lymph % (Auto) 11.8 L Dickinson % (Auto) 5.5 Eos % (Auto) 0.5 Baso % (Auto) 0.5 Absolute Neuts (auto) 7.0 Absolute Lymphs (auto) 1.02 Nucleated RBC % 0 Sodium 118 L* Potassium 3.9 Chloride 84 L Carbon Dioxide 22.0 Anion Gap 12 BUN 62 H Creatinine 7.88 H* Estim Creat Clear Calc 10.22 Est GFR (MDRD) Af Amer 9 L Est GFR (MDRD) Non-Af 7 L BUN/Creatinine Ratio 7.9 L Glucose 103 Calcium 7.8 L Troponin I High Sens 79 H Radiography Chest X-Ray - ED: Read by ED Physician Diagnostic Testing: Clinical Impression(s) from Imaging Studies Chest X-Ray 12/15/22 10:05 IMPRESSION: Cardiomegaly and pulmonary edema with blunting of both costophrenic angles. Electronically Signed: Leonard Nunez MD at 10:23 EDT , Chest x-ray shows severe pulmonary edema and cardiomegaly consistent with volume overload Discharge Plan Triage Chief Complaint: Shortness of Breath ED Provider: Denis Espinosa Dx/Rx/DC Orders Prescriptions: No Action tamsulosin 0.4 mg capsule 0.4 mg PO QHS midodrine 10 mg tablet 10 mg PO TID Rx Instructions: do not give last dose of day after 6PM or within 4 hrs of bedtime allopurinol 300 MG tablet 150 mg PO DAILY latanoprost 1 DROP bottle 1 drp EACH EYE QHS atorvastatin 80 mg Tablet 80 mg PO QHS ammonium lactate 12 % Lotion 1 applic TOPICAL BID Rx Instructions: APPLT 1 APPLICATION TOPICALLY TO BILATERAL LOWER EXT TWO TIMES A DAY FOR SEVERELY DRY SKIN aspirin 81 mg Tablet,Delayed Release (Dr/Ec) 81 mg PO DAILY Hold Instructions: Resume on 12/09/22. aluminum-magnesium hydroxide 225-200 mg/5 mL Suspension 30 ml PO Q4H PRN (Reason: Acid Reflux) mupirocin 2 % Ointment 1 applic TOPICAL QHS Rx Instructions: APPLY 1 APPLICATION TO LEFT FOREARM AND FINGER TOPICALLY EVERY NIGHT FOR WOUND HEALING B complex with C 20-folic acid 1 mg Capsule 1 cap PO DAILY cinacalcet 60 mg Tablet 30 mg PO MOWEFR acetaminophen [Tylenol] 325 mg tablet 1,300 mg PO Q4H PRN (Reason: Pain) sulfamethoxazole-trimethoprim [Bactrim DS] 800-160 mg tablet 1 tab PO .q48 Qty: 3 0RF Primary Care Provider: Janene Griffin Referrals: Janene Griffin MD [Primary Care Provider] -
[2022-12-15 09:49] LABS: Absolute Lymphocyte Count 1.02 X10^3/uL (0.83-4.51); Basophil# 0.04 X10^3/uL; Basophil% 0.5 % (0-1); Eosinophil# 0.04 X10^3/uL; Eosinophils% 0.5 % (0-5); Hematocrit 26.1 % (40-54); Hemoglobin 7.6 g/dL (13.0-16.5); Lymphocyte # 1.02 X10^3/ul (0.83-4.51); Lymphocyte % 11.8 % (19-41); Mean Corp Hgb Conc 29.1 g/dL (32-36); Mean Corpuscular Hgb 26.6 pg (27.0-32.0); Mean Corpuscular Volume 91.3 fL (80-94); Mean Platelet Vol. 10.2 fl (6.2-12.0); Monocyte# 0.47 X10^3/uL; Monocyte% 5.5 % (0-10); NRBC Flagged by Analyzer 0 % (0-5); Neutrophil # 6.99 X10^3/uL (2.7-7.7); Neutrophil % 81.1 % (47-70); Platelet Count 169 K/mm3 (150-450); RBC Distribution Width CV 18.4 % (11.6-14.6); RBC Distribution Width SD 61.1 fl (35.1-43.9); Red Blood Count 2.86 M/mm3 (4.6-6.2); White Blood Count 8.6 K/mm3 (4.4-11.0)
--- NOTE | 2022-12-15 10:05 | RAD_ITS ---
STUDY: X-RAY CHEST REASON FOR EXAM: Male, 61 years old. SOB TECHNIQUE: AP and lateral views of the chest. COMPARISON: Comparison is made with prior study for 2022. FINDINGS: EKG electrodes are seen. There is evidence of bilateral airspace disease worse in the right hemithorax suggestive of a pulmonary edema. Blunting of both costophrenic angles. There is moderate cardiac enlargement. A left-sided dual-chamber pacemaker is seen. Normal mediastinum and andi. Normal visualized pulmonary arteries. There is atherosclerotic tortuosity of the aortic arch and descending thoracic aorta. There are diffuse degenerative changes of the visualized thoracic spine. Normal visualized ribs, clavicles, and shoulders. There is no demonstrated abnormality of the visualized soft tissue structures of the upper abdomen. RAD/Chest PA and Lateral IMPRESSION: Cardiomegaly and pulmonary edema with blunting of both costophrenic angles. Electronically Signed: Leonard Nunez MD at 10:23 EDT ,
[2022-12-15 10:39] LABS: Anion Gap 12 (5-15); BUN 62 mg/dL (7-18); BUN/Creat Ratio 7.9 RATIO (10-20); Calcium,Total 7.8 mg/dL (8.5-10.1); Chloride 84 mmol/L (98-107); Creatinine, Serum 7.88 mg/dL (0.70-1.30); EST Glomerular Filtration Rate 7 mL/min (>60); Est Glom Filt Rate - Afr Amer 9 mL/min (>60); Estimated Creatinine Clearance 10.22 ml/min; Glucose 103 mg/dL (74-106); Potassium 3.9 mmol/L (3.5-5.1); Sodium Level 118 mmol/L (136-145); Troponin-I HS 79 pg/mL (3.0-78.0)
--- NOTE | 2022-12-15 11:18 | HP.PCM.HOS_ITS ---
HPI - General General Date of Admission: 12/15/22 Date of Service: 12/15/22 Chief Complaint: Shortness of breath HPI Narrative JUVENCIO QUINTERO, is a 61 M with multiple comorbidities including end-stage renal disease on hemodialysis recently discharged from the hospital to an F. His last dialysis was on 12/12/2022. Patient was found to be significantly hypoxic on the morning of his admission. The squad was called patient was brought to the emergency department. Chest x-ray obtained and admission demonstrated evidence of fluid overload. Patient was admitted to a monitored bed with consultation placed to nephrology for emergency dialysis [facility] Medical History Ambulates with cane Anemia Anemia in chronic kidney disease Atherosclerosis of [place] coronary artery of [place] heart without angina pectoris Benign prostatic hyperplasia Chronic diastolic (congestive) heart failure Chronic indwelling Barnes catheter Diabetes mellitus, type II End-stage renal disease on hemodialysis Essential hypertension Barnes catheter in place Gout History of chronic renal failure Hydronephrosis concurrent with and due to calculi of kidney and ureter Hyperlipidemia ICD (implantable cardioverter-defibrillator) in place Iron deficiency anemia Left bundle branch block (LBBB) Morbid obesity Non-ischemic cardiomyopathy Non-smoker Nonsustained ventricular tachycardia Open wound RAQUEL (obstructive sleep apnea) Right foot drop Secondary hyperparathyroidism (of renal origin) Sepsis Sleep apnea Venous ulcer of left lower extremity without varicose veins Walker as ambulation aid Wears glasses Home Medications allopurinol 300 mg tablet 150 mg PO DAILY GOUT 01/27/16 [History Last Taken 12/15/22] latanoprost 0.005 % eye drops 1 drp EACH EYE QHS GLAUCOMA 12/23/18 [History Last Taken 12/14/22] tamsulosin 0.4 mg capsule 0.4 mg PO QHS PROSTATE 06/21/19 [History Last Taken 12/14/22] acetaminophen 325 mg tablet (Tylenol) 1,300 mg PO Q4H PRN Pain 08/06/22 [History Last Taken 08/04/22] aluminum-magnesium hydroxide 225 mg-200 mg/5 mL oral suspension 30 ml PO Q4H PRN Acid Reflux 08/06/22 [History Last Taken 07/31/22] ammonium lactate 12 % lotion 1 applic topical BID SEVERE DRY SKIN 08/06/22 [History Last Taken 12/15/22] aspirin 81 mg tablet,delayed release 81 mg PO DAILY HEART HEALTH 08/06/22 [H istory Last Taken 12/15/22] atorvastatin 80 mg tablet 80 mg PO QHS CHOLESTEROL 08/06/22 [History Last Taken 12/14/22] cinacalcet 60 mg tablet 30 mg PO MOWEFR SUPPLEMENT 08/06/22 [History Last Taken 12/15/22] vitamin B complex and vitamin C no.20-folic acid 1 mg capsule 1 cap PO DAILY SUPPLEMENT 08/06/22 [History Last Taken 12/15/22] midodrine 10 mg tablet 10 mg PO TID Check with primary doctor 10/08/22 [History Last Taken 12/15/22] furosemide 40 mg tablet 40 mg PO DAILY EDEMA 12/15/22 [History Last Taken 12/15/22] guaifenesin 1,200 mg tablet, extended release 12 hr 1,200 mg PO BID CONGESTION 0 12/15/22 [History Last Taken 12/15/22] Allergy/AdvReac Type Severity Reaction Status Date / Time aluminum Allergy PT UNSURE Verified 12/15/22 09:18 OF REACTION amoxicillin [From Augmentin] Allergy PT UNSURE Verified 12/15/22 09:18 OF REACTION clavulanic acid Allergy PT UNSURE Verified 12/15/22 09:18 [From Augmentin] OF REACTION Family History Father Hypertension Heart disease Diabetes Mother Diabetes Chronic kidney disease Hypertension Anemia Surgical History H/O skin graft History of tonsillectomy and adenoidectomy Hx of appendectomy Hx of tonsillectomy Presence of biventricular implantable cardioverter-defibrillator (ICD) (05/14/11) Social History household members: none Smoking Status: Never smoker alcohol intake: never substance use type: does not use caffeine: Yes ROS ROS Narrative GENERAL: denies fever, chills, night sweats, weight loss, anorexia HEENT: denies headache, sinus congestion, or drainage, dysphagia RESPIRATORY: shortness of breath, dyspnea on exertion CARDIAC: denies chest pain, palpitations, orthopnea, PND GASTROINTESTINAL: denies abdominal pain, nausea, vomiting, melena, GENITOURINARY: denies dysuria, urgency, frequency, heamaturia EXTREMITY: denies swelling MUSCULOSKELETAL: denies current joint pain or tenderness NEUROLOGIC: denies focal numbness, weakness, tingling HEMATOLOGIC: denies easy bruising and/or hemorrhage INTEGUMENT: denies rashes PSYCHIATRIC: denies suicidal or homicidal ideation Vital Signs Vital Signs Vital Signs: 12/15/22 09:10 12/15/22 09:16 12/15/22 09:17 Temperature 97.5 F L 97.5 F L Temperature Source Oral Oral Pulse Rate 22 L 104 H Respiratory Rate 88 H 28 H Respiratory Effort Short of Breath Respiratory Depth Shallow Respiratory Pattern Tachypnea Blood Pressure 129/96 H 129/96 H Blood Pressure Mean 107 107 Pulse Ox 93 Oxygen Delivery Method Nasal Cannula Room Air Oxygen Flow Rate (L/min) 2 Weight Weight: 127.1 kg Body Mass Index (BMI) 39.0 Physical Exam Narrative GENERAL: cooperative HEENT: Soft tissue lesion on the right frontal scalp EYES; Anicteric, Normal Conjunctiva NECK; supple, normal thyroid, RESPIRATORY: Diminished to auscultation CARDIOVASCULAR:? Regular S1 S2, GI:? soft, normoactive bowel sounds, : No Renal angle tenderness; EXTREMITIES: Bilateral stasis dermatitis MUSCULOSKELETAL:? no muscle wasting NEURO:? Awake;? no lateralizing signs. SKIN:? No Rash PSYCH; Flat? affect Results Lab / Micro Data Result Diagrams: 12/15/22 09:40 12/15/22 09:40 Labs: Laboratory Results - last 24 hr 12/15/22 09:40: WBC 8.6, RBC 2.86 L, Hgb 7.6 L, Hct 26.1 L, MCV 91.3, MCH 26.6 L , MCHC 29.1 L, RDW Std Deviation 61.1 H, RDW Coeff of Jeffrey 18.4 H, Plt Count 169, MPV 10.2, Immature Gran % (Auto) 0.600, Neut % (Auto) 81.1 H, Lymph % (Auto) 11.8 L, [place] % (Auto) 5.5, Eos % (Auto) 0.5, Baso % (Auto) 0.5, Absolute Neuts (auto) 7.0, Absolute Lymphs (auto) 1.02, Nucleated RBC % 0 12/15/22 09:40: Sodium 118 L*, Potassium 3.9, Chloride 84 L, Carbon Dioxide 22.0, Anion Gap 12, BUN 62 H, Creatinine 7.88 H*, Estim Creat Clear Calc 10.22, Est GFR (MDRD) Af Amer 9 L, Est GFR (MDRD) Non-Af 7 L, BUN/Creatinine Ratio 7.9 L, Glucose 103, Calcium 7.8 L, Troponin I High Sens 79 H Micro: Microbiology 12/15/22 09:55 Nasal Secretion SARS-CoV-2 & FLU Antigen (Rapid) - Final Radiology Impression Chest X-Ray 12/15/22 10:05 IMPRESSION: Cardiomegaly and pulmonary edema with blunting of both costophrenic angles. Electronically Signed: Leonard Nunez MD at 10:23 EDT , Assessment & Plan Assessment/Plan (1) Pulmonary edema: (2) Hypoxia: PLAN: Plan Patient is a 61-year-old gentleman with history of end-stage renal disease presenting with shortness of breath 1. Acute dyspnea ? Secondary to fluid overload as a result of patient's shortness of breath. Admitted to a monitored bed with consultation placed to nephrology for emergency dialysis 2. End-stage renal disease ? Patient is on dialysis on Wednesdays and Fridays consultation placed to nephrology for dialysis orders 3. Severe hyponatremia ? Thought to be secondary to fluid overload status do expect improvement with dialysis 4.? Diabetes mellitus type 2 with complications including diabetic nephropathy ? Did continue with patient home regimen in addition to Accu-Cheks before meals and at bedtime with sliding scale coverage 5.? End-stage renal disease on dialysis on Mondays, Thursday and Thursday ? Consult placed to nephrology for dialysis orders 6.? Hypertension - Blood pressure low on admission antihypertensives held on admission 7.? BPH ? Patient is on tamsulosin 8.? Class II obesity with BMI of 37.9 ? Weight loss advised 9.? Anemia - Secondary to chronic disorder monitoring H&H and transfuse if patient becomes symptomatic or hemoglobin falls below? 7 10.? DVT prophylaxis ? Bilateral SCD 11.? Physical deconditioning - Requested for PT OT eval and social sciences research scientist to assist with discharge planning Time spent in the patient's overall evaluation,decision-making process, review of diagnostic data, adjustment of management, discussion with other providers, nursing nursing and ancillary staff involved in patient's care documentation, 77. Minutes Advance planning; did discuss with the patient and family regarding advanced directives as well as CODE STATUS. Did explain the various scenarios involved ( FULL CODE, DNR CCA, DNR CCA with no intubation, and DNR CC and what each meant) patient elected to remain full code with CPR and intubation if needed. Order was placed. Time spent on discussion 18 minutes. Charges/Coding Visit Charges Inpatient E&M: 35230 Init Hosp L3 Procedures Hospitalists Procedures: 05155 Advncd Care Plan 30 Min
[2022-12-15 11:38] LABS: Troponin-I HS 80 pg/mL (3.0-78.0)
--- NOTE | 2022-12-15 11:39 | ED.RN ---
called [facility] to given them update and let them know he will be admitted to [facility]
[2022-12-15 12:06] LABS: Blood Gas Specimen Type VEN; O2 Delivery Device Room Air; VBG BASE EXCESS -1 mmol/L (-1.0-3.5); VBG Bicarbonate 23 mmol/L (22-26); VBG PO2 53 mmHg (25-40); VBG SO2 90 % (50-70); VBG TCO2 23 mmol/L (23-33); VBG pCO2 30.3 mmHg (41-51); VBG pH 7.48 (7.32-7.42)
[2022-12-15] MEDS: 0.9% Saline Lock 10 ML Syringe IV (15:09)
[2022-12-15] MEDS: Ondansetron 4 MG/2 ML Vial IV (15:09)
--- NOTE | 2022-12-15 15:58 | DIALYSIS ---
Pt's RLAF clotted attempted 1 needle without success- no bruit/thrill noted. Dr Pop notified of clotted access and he said he would call IR. Report to Ariella MILAN
--- NOTE | 2022-12-15 17:18 | PCM.PN.REN ---
Subjective Subjective patient of Dr Chavez. Dr Chavez requested me to take care of this patient since he is in a [facility] now and she is not going there anymore. Called dialysis staff earlier regarding the need for HD. I was notified by dialysis nurse that his fistula is clotted. Reviewed chart, he was seen by Dr Moya for AVF placement. will place a consult for vascular surgery for potential declot vs tunneled dialysis line. nicolasa Akins Objective Data Objective Data Vital Signs: Vital Signs Temp Pulse Resp BP Pulse Ox O2 Del Method O2 Flow Rate 98.2 F 89 18 127/89 H 93 Nasal Cannula 5 12/15/22 15:12/15/22 15:12/15/22 15:12/15/22 15:12/15/22 15:12/15/22 15:24 12/15/22 15:24 Oxygen Flow Rate (L/min) 5 Oxygen Delivery Method Nasal Cannula Weight: 125.8 kg Body Mass Index (BMI) 38.7 Lab / Micro Data Result Diagrams: 12/15/22 09:40 12/15/22 09:40 Labs: Laboratory Results - last 24 hr 12/15/22 09:40: WBC 8.6, RBC 2.86 L, Hgb 7.6 L, Hct 26.1 L, MCV 91.3, MCH 26.6 L, MCHC 29.1 L, RDW Std Deviation 61.1 H, RDW Coeff of Jeffrey 18.4 H, Plt Count 169, MPV 10.2, Immature Gran % (Auto) 0.600, Neut % (Auto) 81.1 H, Lymph % (Auto) 11.8 L, [place] % (Auto) 5.5, Eos % (Auto) 0.5, Baso % (Auto) 0.5, Absolute Neuts (auto) 7.0, Absolute Lymphs (auto) 1.02, Nucleated RBC % 0 12/15/22 09:40: Sodium 118 L*, Potassium 3.9, Chloride 84 L, Carbon Dioxide 22.0, Anion Gap 12, BUN 62 H, Creatinine 7.88 H*, Estim Creat Clear Calc 10.22, Est GFR (MDRD) Af Amer 9 L, Est GFR (MDRD) Non-Af 7 L, BUN/Creatinine Ratio 7.9 L, Glucose 103, Calcium 7.8 L, Troponin I High Sens 79 H 12/15/22 11:15: Troponin I High Sens 80 H Micro: Microbiology 12/15/22 09:55 Nasal Secretion SARS-CoV-2 & FLU Antigen (Rapid) - Final ABG Data ABG results: ABG 12/15/22 11:58 Specimen Type BRENDON VBG pH 7.48 H VBG pO2 53 H VBG HCO3 23 VBG Total CO2 23 VBG O2 Sat (Calc) 90 H VBG Base Excess -1 POC Mix VBG pCO2 Pt Tmp 30.3 L O2 Delivery Device Room Air Radiography Diagnostic Testing: Radiology Impression Chest X-Ray 12/15/22 10:05 IMPRESSION: Cardiomegaly and pulmonary edema with blunting of both costophrenic angles. Electronically Signed: Leonard Nunez MD at 10:23 EDT ,
[2022-12-15] MEDS: Albuterol 2.5 MG/3 ML VIAL.NEB. INHALATION (20:42)
[2022-12-16] VITALS (12 sets, daily range): BP systolic 97–141; BP diastolic 73–105; PULSE 71–87; RESP 16–20; TEMP 35.9–36.9; O2SAT 94–100; BMI 38.6
[2022-12-16 03:06] LABS: Bedside Glucose 99 mg/dL (74-106)
[2022-12-16 07:05] LABS: Bedside Glucose 81 mg/dL (74-106)
[2022-12-16 07:13] LABS: Absolute Lymphocyte Count 0.92 X10^3/uL (0.83-4.51); Absolute Neutrophil Count 7.2 X10^3/uL (2.0-7.7); Basophil# 0.02 X10^3/uL; Basophil% 0.2 % (0-1); Eosinophil# 0.18 X10^3/uL; Hematocrit 23.6 % (40-54); Hemoglobin 7.5 g/dL (13.0-16.5); Lymphocyte # 0.92 X10^3/ul (0.83-4.51); Lymphocyte % 10.3 % (19-41); Mean Corp Hgb Conc 31.8 g/dL (32-36); Mean Corpuscular Hgb 27.1 pg (27.0-32.0); Mean Corpuscular Volume 85.2 fL (80-94); Mean Platelet Vol. 10.3 fl (6.2-12.0); Monocyte# 0.51 X10^3/uL; Monocyte% 5.7 % (0-10); NRBC Flagged by Analyzer 0 % (0-5); Neutrophil # 7.24 X10^3/uL (2.7-7.7); Neutrophil % 81.2 % (47-70); Platelet Count 151 K/mm3 (150-450); RBC Distribution Width CV 17.9 % (11.6-14.6); RBC Distribution Width SD 55.4 fl (35.1-43.9); Red Blood Count 2.77 M/mm3 (4.6-6.2); White Blood Count 8.9 K/mm3 (4.4-11.0)
--- NOTE | 2022-12-16 07:25 | PN.HOSP_ITS ---
Reason for Visit Reason for Visit: Diagnoses Chronic pulmonary edema (12/15/22) Hypoxemia (12/15/22) Subjective Subjective Patient seen; dialysis the day prior could not be performed since patient AV fistula had apparently clotted. Case was discussed with Dr. Pop with nephrology. Plan was to have consulted vascular surgery for declotting. Patient may need tunnel catheter if his AV fistula cannot be accessed. Objective Data Objective Data Vital Signs: Vital Signs Temp Pulse Resp BP Pulse Ox O2 Del Method O2 Flow Rate 98.2 F 86 20 H 141/105 H 98 Nasal Cannula 3 12/16/22 02:45 12/16/22 02:45 12/16/22 02:45 12/16/22 02:45 12/16/22 02:45 12/16/22 02:45 12/16/22 02:45 Oxygen Flow Rate (L/min) 3 Oxygen Delivery Method Nasal Cannula Weight: 125.6 kg Body Mass Index (BMI) 38.6 Intake & Output: Intake and Output for Last 24 Hours 12/14/22 12/15/22 12/16/22 23:59 23:59 23:59 Output Total 200 / 200 100 / 100 Balance -200 / -200 -100 / -100 Lab / Micro Data Result Diagrams: 12/16/22 07:00 12/16/22 07:00 Labs: Laboratory Results - last 24 hr 12/15/22 09:40: WBC 8.6, RBC 2.86 L, Hgb 7.6 L, Hct 26.1 L, MCV 91.3, MCH 26.6 L , MCHC 29.1 L, RDW Std Deviation 61.1 H, RDW Coeff of Jeffrey 18.4 H, Plt Count 169, MPV 10.2, Immature Gran % (Auto) 0.600, Neut % (Auto) 81.1 H, Lymph % (Auto) 11.8 L, [place] % (Auto) 5.5, Eos % (Auto) 0.5, Baso % (Auto) 0.5, Absolute Neuts (auto) 7.0, Absolute Lymphs (auto) 1.02, Nucleated RBC % 0 12/15/22 09:40: Sodium 118 L*, Potassium 3.9, Chloride 84 L, Carbon Dioxide 22.0, Anion Gap 12, BUN 62 H, Creatinine 7.88 H*, Estim Creat Clear Calc 10.22, Est GFR (MDRD) Af Amer 9 L, Est GFR (MDRD) Non-Af 7 L, BUN/Creatinine Ratio 7.9 L, Glucose 103, Calcium 7.8 L, Troponin I High Sens 79 H 12/15/22 11:15: Troponin I High Sens 80 H 12/16/22 02:42: POC Glucose 99 12/16/22 06:19: POC Glucose 81 12/16/22 07:00: WBC 8.9, RBC 2.77 L, Hgb 7.5 L, Hct 23.6 L, MCV 85.2 D, MCH 27.1, MCHC 31.8 L D, RDW Std Deviation 55.4 H, RDW Coeff of Jeffrey 17.9 H, Plt Count 151, MPV 10.3, Immature Gran % (Auto) 0.600, Neut % (Auto) 81.2 H, Lymph % (Auto) 10.3 L, [place] % (Auto) 5.7, Eos % (Auto) 2.0, Baso % (Auto) 0.2, Absolute Neuts (auto) 7.2, Absolute Lymphs (auto) 0.92, Nucleated RBC % 0 Micro: Microbiology 12/15/22 09:55 Nasal Secretion SARS-CoV-2 & FLU Antigen (Rapid) - Final ABG Data ABG results: ABG 12/15/22 11:58 Specimen Type BRENDON VBG pH 7.48 H VBG pO2 53 H VBG HCO3 23 VBG Total CO2 23 VBG O2 Sat (Calc) 90 H VBG Base Excess -1 POC Mix VBG pCO2 Pt Tmp 30.3 L O2 Delivery Device Room Air Radiography Diagnostic Testing: Radiology Impression Chest X-Ray 12/15/22 10:05 IMPRESSION: Cardiomegaly and pulmonary edema with blunting of both costophrenic angles. Electronically Signed: Leonard Nunez MD at 10:23 EDT , Physical Exam Narrative GENERAL: cooperative but dyspneic at rest HEENT: Soft tissue lesion on the right frontal scalp EYES; Anicteric, Normal Conjunctiva NECK; supple, normal thyroid, RESPIRATORY: Diminished to auscultation CARDIOVASCULAR:? Regular S1 S2, GI:? soft, normoactive bowel sounds, : No Renal angle tenderness; EXTREMITIES: Bilateral stasis dermatitis MUSCULOSKELETAL:? no muscle wasting NEURO:? Awake;? no lateralizing signs. SKIN:? No Rash PSYCH; Flat? affect Assessment & Plan Assessment/Plan (1) Pulmonary edema: (2) Hypoxia: PLAN: Plan Patient is a 61-year-old gentleman with history of end-stage renal disease presenting with shortness of breath 1. Acute dyspnea ? Secondary to fluid overload as a result of patient's shortness of breath. Admitted to a monitored bed with consultation placed to nephrology for emergency dialysis -?3Patient seen; dialysis the day prior could not be performed since patient AV fistula had apparently clotted. Case was discussed with Dr. Pop with nephrology. Plan was to have consulted vascular surgery for declotting. Patient may need tunnel catheter if his AV fistula cannot be accessed. 2. End-stage renal disease ? Patient is on dialysis on Wednesdays and Fridays consultation placed to nephrology for dialysis orders 3. Severe hyponatremia ? Thought to be secondary to fluid overload status do expect improvement with di alysis 4.? Diabetes mellitus type 2 with complications including diabetic nephropathy ? Did continue with patient home regimen in addition to Accu-Cheks before meals and at bedtime with sliding scale coverage 5.? End-stage renal disease on dialysis on Mondays, Thursday and Thursday ? Consult placed to nephrology for dialysis orders 6.? Hypertension - Blood pressure low on admission antihypertensives held on admission 7.? BPH ? Patient is on tamsulosin 8.? Class II obesity with BMI of 37.9 ? Weight loss advised 9.? Anemia - Secondary to chronic disorder monitoring H&H and transfuse if patient becomes symptomatic or hemoglobin falls below? 7 10.? DVT prophylaxis ? Bilateral SCD 11.? Physical deconditioning - Requested for PT OT eval and long term care social worker to assist with discharge planning Time spent in the patient's overall evaluation,decision-making process, review of diagnostic data, adjustment of management, discussion with other providers, nursing nursing and ancillary staff involved in patient's care documentation, 57. Minutes Charges/Coding Visit Charges Inpatient E&M: 86295 Subs Hosp L3
[2022-12-16 07:43] LABS: Anion Gap 9 (5-15); BUN 72 mg/dL (7-18); BUN/Creat Ratio 8.1 RATIO (10-20); Calcium,Total 7.6 mg/dL (8.5-10.1); Chloride 85 mmol/L (98-107); Creatinine, Serum 8.86 mg/dL (0.70-1.30); EST Glomerular Filtration Rate 6 mL/min (>60); Est Glom Filt Rate - Afr Amer 8 mL/min (>60); Estimated Creatinine Clearance 9.09 ml/min; Glucose 87 mg/dL (74-106); Magnesium 1.9 mg/dL (1.6-2.6); Phosphorus 7.3 mg/dL (2.5-4.9); Potassium 4.1 mmol/L (3.5-5.1); Sodium Level 120 mmol/L (136-145)
[2022-12-16 08:37] LABS: International Normalized Ratio 1.3
[2022-12-16 08:39] LABS: Partial Thromboplast Time 38.9 Seconds (24.1-36.2)
--- NOTE | 2022-12-16 10:01 | CASEMGMT ---
Discharge Planning Updates sent to [facility] Coreen [place]
--- NOTE | 2022-12-16 10:07 | PCM.CONS.R ---
Documented by User: SRAVANTHI Garcia 12/16/22 10:33 Assessment & Plan Assessment/Plan (1) ESRD (end stage renal disease): (2) Dyspnea: PLAN: Plan This is a 61-year-old male with past medical history significant for ESRD on hemodialysis at [facility] who dialyzes Thursday schedule. Nephrology consulted for dialysis management. There was an attempt for dialysis last evening however patient was found to have clotted AV access. Vascular consulted. We will plan for dialysis today on 2K bath with fluid removal after surgical procedure today. Plan for dialysis again tomorrow. We will attempt fluid removal as patient/blood pressure tolerates. Quite possibly EDW will need to be lowered given chest x-ray findings. Patient has a history of anemia of chronic disease and receives iron and SUNNY at dialysis. We will monitor hemoglobin trends. Blood pressures acceptable, patient is not on any antihypertensives. Further orders forthcoming as hospitalization evolves, thank you for allowing us to participate in the care of Mr. Quintero. HPI Consult Data Date of Consult: 12/16/22 HPI Narrative HPI Narrative: JUVENCIO QUINTERO, is a 61 M with past medical history significant for ESRD on hemodialysis at the [facility] on a Thursday schedule who was brought to the ER yesterday for evaluation of confusion and shortness of breath from the ECF. Patient was admitted for further evaluation and treatment. Nephrology consulted for dialysis management. An attempt was made for patient to dialyze yesterday however found that his AV access was clotted. Patient last dialyzed Thursday at the [facility]. Patient is alert but sleepy, denies any complaints at this time. [facility] Medical History (Updated 12/16/22 @ 10:28 by SRAVANTHI Garcia) Ambulates with cane Anemia Anemia in chronic kidney disease Atherosclerosis of [place] coronary artery of [place] heart without angina pectoris Benign prostatic hyperplasia Chronic diastolic (congestive) heart failure Chronic indwelling Barnes catheter Diabetes mellitus, type II End-stage renal disease on hemodialysis Essential hypertension Barnes catheter in place Gout History of chronic renal failure Hydronephrosis concurrent with and due to calculi of kidney and ureter Hyperlipidemia ICD (implantable cardioverter-defibrillator) in place Iron deficiency anemia Left bundle branch block (LBBB) Morbid obesity Non-ischemic cardiomyopathy Non-smoker Nonsustained ventricular tachycardia Open wound RAQUEL (obstructive sleep apnea) Right foot drop Secondary hyperparathyroidism (of renal origin) Sepsis Sleep apnea Venous ulcer of left lower extremity without varicose veins Walker as ambulation aid Wears glasses Home Medications allopurinol 300 mg tablet 150 mg PO DAILY GOUT 01/27/16 [History Last Taken 12/15/22] latanoprost 0.005 % eye drops 1 drp EACH EYE QHS GLAUCOMA 12/23/18 [History Last Taken 12/14/22] tamsulosin 0.4 mg capsule 0.4 mg PO QHS PROSTATE 06/21/19 [History Last Taken 12/14/22] acetaminophen 325 mg tablet (Tylenol) 1,300 mg PO Q4H PRN Pain 08/06/22 [History Last Taken 08/04/22] aluminum-magnesium hydroxide 225 mg-200 mg/5 mL oral suspension 30 ml PO Q4H PRN Acid Reflux 08/06/22 [History Last Taken 07/31/22] ammonium lactate 12 % lotion 1 applic topical BID SEVERE DRY SKIN 08/06/22 [History Last Taken 12/15/22] aspirin 81 mg tablet,delayed release 81 mg PO DAILY HEART HEALTH 08/06/22 [History Last Taken 12/15/22] atorvastatin 80 mg tablet 80 mg PO QHS CHOLESTEROL 08/06/22 [History Last Taken 12/14/22] cinacalcet 60 mg tablet 30 mg PO MOWEFR SUPPLEMENT 08/06/22 [History Last Taken 12/15/22] vitamin B complex and vitamin C no.20-folic acid 1 mg capsule 1 cap PO DAILY SUPPLEMENT 08/06/22 [History Last Taken 12/15/22] midodrine 10 mg tablet 10 mg PO TID Check with primary doctor 10/08/22 [History Last Taken 12/15/22] furosemide 40 mg tablet 40 mg PO DAILY EDEMA 12/15/22 [History Last Taken 12/15/22] guaifenesin 1,200 mg tablet, extended release 12 hr 1,200 mg PO BID CONGESTION 12/15/22 [History Last Taken 12/15/22] Allergy/AdvReac Type Severity Reaction Status Date / Time aluminum Allergy PT UNSURE Verified 12/15/22 09:18 OF REACTION amoxicillin [From Augmentin] Allergy PT UNSURE Verified 12/15/22 09:18 OF REACTION clavulanic acid Allergy PT UNSURE Verified 12/15/22 09:18 [From Augmentin] OF REACTION Family History Father Hypertension Heart disease Diabetes Mother Diabetes Chronic kidney disease Hypertension Anemia Surgical History H/O skin graft History of tonsillectomy and adenoidectomy Hx of appendectomy Hx of tonsillectomy Presence of biventricular implantable cardioverter-defibrillator (ICD) (05/14/11) Social History household members: none Smoking Status: Never smoker alcohol intake: never substance use type: does not use caffeine: Yes ROS ROS Narrative as in HPI Physical Exam Narrative Alert to name, no apparent distress Lung sounds diminished, faint rhonchi noted S1, S2, RRR Abdomen soft, nontender, positive bowel sounds No pitting edema noted bilateral lower legs Right forearm AV fistula no thrill or bruit noted Lab / Micro Data Result Diagrams: 12/16/22 07:00 12/16/22 07:00 Labs: Laboratory Results - last 24 hr 12/15/22 09:40: Sodium 118 L*, Potassium 3.9, Chloride 84 L, Carbon Dioxide 22.0, Anion Gap 12, BUN 62 H, Creatinine 7.88 H*, Estim Creat Clear Calc 10.22, Est GFR (MDRD) Af Amer 9 L, Est GFR (MDRD) Non-Af 7 L, BUN/Creatinine Ratio 7.9 L, Glucose 103, Calcium 7.8 L, Troponin I High Sens 79 H 12/15/22 11:15: Troponin I High Sens 80 H 12/16/22 02:42: POC Glucose 99 12/16/22 06:19: POC Glucose 81 12/16/22 07:00: WBC 8.9, RBC 2.77 L, Hgb 7.5 L, Hct 23.6 L, MCV 85.2 D, MCH 27.1, MCHC 31.8 L D, RDW Std Deviation 55.4 H, RDW Coeff of Jeffrey 17.9 H, Plt Count 151, MPV 10.3, Immature Gran % (Auto) 0.600, Neut % (Auto) 81.2 H, Lymph % (Auto) 10.3 L, [place] % (Auto) 5.7, Eos % (Auto) 2.0, Baso % (Auto) 0.2, Absolute Neuts (auto) 7.2, Absolute Lymphs (auto) 0.92, Nucleated RBC % 0 12/16/22 07:00: Sodium 120 L, Potassium 4.1, Chloride 85 L, Carbon Dioxide 26.0, Anion Gap 9, BUN 72 H, Creatinine 8.86 H*, Estim Creat Clear Calc 9.09, Est GFR (MDRD) Af Amer 8 L, Est GFR (MDRD) Non-Af 6 L, BUN/Creatinine Ratio 8.1 L, Glucose 87, Calcium 7.6 L, Phosphorus 7.3 H, Magnesium 1.9 12/16/22 07:00: PT 16.0 H, INR 1.3, APTT 38.9 H 12/16/22 07:00: Hemoglobin A1c 5.0 Micro: Microbiology 12/15/22 09:55 Nasal Secretion SARS-CoV-2 & FLU Antigen (Rapid) - Final ABG Data ABG results: ABG 12/15/22 11:58 Specimen Type BRENDON VBG pH 7.48 H VBG pO2 53 H VBG HCO3 23 VBG Total CO2 23 VBG O2 Sat (Calc) 90 H VBG Base Excess -1 POC Mix VBG pCO2 Pt Tmp 30.3 L O2 Delivery Device Room Air Radiology Impression Chest X-Ray 12/15/22 10:05 IMPRESSION: Cardiomegaly and pulmonary edema with blunting of both costophrenic angles. Electronically Signed: Leonard Nunez MD at 10:23 EDT , Documented by User: Dr. Gilmer Pop MD 12/16/22 14:46 Assessment & Plan Assessment/Plan (1) ESRD (end stage renal disease): (2) Dyspnea: PLAN: Plan This is a 61-year-old male with past medical history significant for ESRD on hemodialysis at [facility] who dialyzes Thursday schedule. Nephrology consulted for dialysis management. There was an attempt for dialysis last evening however patient was found to have clotted AV access. Vascular consulted. We will plan for dialysis today on 2K bath with fluid removal after surgical procedure today. Plan for dialysis again tomorrow. We will attempt fluid removal as patient/blood pressure tolerates. Quite possibly EDW will need to be lowered given chest x-ray findings. Patient has a history of anemia of chronic disease and receives iron and SUNNY at dialysis. We will monitor hemoglobin trends. Blood pressures acceptable, patient is not on any antihypertensives. Further orders forthcoming as hospitalization evolves, thank you for allowing us to participate in the care of Mr. Quintero. staff. agree with plan. HD arranged for today, tunneled line placed today HPI Consult Data Date of Consult: 12/16/22 [facility] Medical History (Updated 12/16/22 @ 10:28 by SRAVANTHI Garcia) Ambulates with cane Anemia Anemia in chronic kidney disease Atherosclerosis of [place] coronary artery of [place] heart without angina pectoris Benign prostatic hyperplasia Chronic diastolic (congestive) heart failure Chronic indwelling Barnes catheter Diabetes mellitus, type II End-stage renal disease on hemodialysis Essential hypertension Barnes catheter in place Gout History of chronic renal failure Hydronephrosis concurrent with and due to calculi of kidney and ureter Hyperlipidemia ICD (implantable cardioverter-defibrillator) in place Iron deficiency anemia Left bundle branch block (LBBB) Morbid obesity Non-ischemic cardiomyopathy Non-smoker Nonsustained ventricular tachycardia Open wound RAQUEL (obstructive sleep apnea) Right foot drop Secondary hyperparathyroidism (of renal origin) Sepsis Sleep apnea Venous ulcer of left lower extremity without varicose veins Walker as ambulation aid Wears glasses Home Medications allopurinol 300 mg tablet 150 mg PO DAILY GOUT 01/27/16 [History Last Taken 12/15/22] latanoprost 0.005 % eye drops 1 drp EACH EYE QHS GLAUCOMA 12/23/18 [History Last Taken 12/14/22] tamsulosin 0.4 mg capsule 0.4 mg PO QHS PROSTATE 06/21/19 [History Last Taken 12/14/22] acetaminophen 325 mg tablet (Tylenol) 1,300 mg PO Q4H PRN Pain 08/06/22 [History Last Taken 08/04/22] aluminum-magnesium hydroxide 225 mg-200 mg/5 mL oral suspension 30 ml PO Q4H PRN Acid Reflux 08/06/22 [History Last Taken 07/31/22] ammonium lactate 12 % lotion 1 applic topical BID SEVERE DRY SKIN 08/06/22 [History Last Taken 12/15/22] aspirin 81 mg tablet,delayed release 81 mg PO DAILY HEART HEALTH 08/06/22 [History Last Taken 12/15/22] atorvastatin 80 mg tablet 80 mg PO QHS CHOLESTEROL 08/06/22 [History Last Taken 12/14/22] cinacalcet 60 mg tablet 30 mg PO MOWEFR SUPPLEMENT 08/06/22 [History Last Taken 12/15/22] vitamin B complex and vitamin C no.20-folic acid 1 mg capsule 1 cap PO DAILY SUPPLEMENT 08/06/22 [History Last Taken 12/15/22] midodrine 10 mg tablet 10 mg PO TID Check with primary doctor 10/08/22 [History Last Taken 12/15/22] furosemide 40 mg tablet 40 mg PO DAILY EDEMA 12/15/22 [History Last Taken 12/15/22] guaifenesin 1,200 mg tablet, extended release 12 hr 1,200 mg PO BID CONGESTION 12/15/22 [History Last Taken 12/15/22] Allergy/AdvReac Type Severity Reaction Status Date / Time aluminum Allergy PT UNSURE Verified 12/15/22 09:18 OF REACTION amoxicillin [From Augmentin] Allergy PT UNSURE Verified 12/15/22 09:18 OF REACTION clavulanic acid Allergy PT UNSURE Verified 12/15/22 09:18 [From Augmentin] OF REACTION Family History Father Hypertension Heart disease Diabetes Mother Diabetes Chronic kidney disease Hypertension Anemia Surgical History H/O skin graft History of tonsillectomy and adenoidectomy Hx of appendectomy Hx of tonsillectomy Presence of biventricular implantable cardioverter-defibrillator (ICD) (05/14/11) Social History household members: none Smoking Status: Never smoker alcohol intake: never substance use type: does not use caffeine: Yes Lab / Micro Data Result Diagrams: 12/16/22 07:00 12/16/22 07:00
--- NOTE | 2022-12-16 10:29 | CON.PCM.SX_ITS ---
Assessment & Plan Assessment/Plan (1) CHF exacerbation: (2) Problem with dialysis access: QUALIFIERS: Encounter type: initial encounter Qualified Code(s): T82.898A - Other specified complication of vascular prosthetic devices, implants and grafts, initial encounter (3) Pulmonary edema: (4) Acute dyspnea: PLAN: Plan Patient is felt to be in acute fluid overload and urgent need of hemodialysis. I propose placement of tunneled dialysis catheter as the ability to thrombectomize an AV fistula and obtain a working fistula is low in the best of circumstances and would likely be very low and trying to get a fistula fun ctioning same day. The patient and his status confirms that he wants to continue hemodialysis and i s willing to have catheters placed. He is aware of the urgency of the procedure. I have contacted the operating room and asked for emergency access. Paul Moya M.D., F.A.C.S. HPI Consult Data Date of Consult: 12/16/22 HPI Narrative Reason for Consultation: Emergency placement of dialysis catheter or fistula declotting HPI Narrative: JUVENCIO QUINTERO, is a 61 M who presents with confusion and what is felt to be volume overload. March 2021 I created for him a right forearm radiocephalic arteriovenous hemodialysis fistula. There are no reports that there were any difficulties during his outpatient hemodialysis sessions however on this occasion he presents with a thrombosed fistula. Apparently his last successful dialysis was 3 days ago. He is felt to be an urgent need because of volume overload. [facility] Medical History (Updated 12/16/22 @ 10:28 by SRAVANTHI Garcia) Ambulates with cane Anemia Anemia in chronic kidney disease Atherosclerosis of [place] coronary artery of [place] heart without angina pectoris Benign prostatic hyperplasia Chronic diastolic (congestive) heart failure Chronic indwelling Barnes catheter Diabetes mellitus, type II End-stage renal disease on hemodialysis Essential hypertension Barnes catheter in place Gout History of chronic renal failure Hydronephrosis concurrent with and due to calculi of kidney and ureter Hyperlipidemia ICD (implantable cardioverter-defibrillator) in place Iron deficiency anemia Left bundle branch block (LBBB) Morbid obesity Non-ischemic cardiomyopathy Non-smoker Nonsustained ventricular tachycardia Open wound RAQUEL (obstructive sleep apnea) Right foot drop Secondary hyperparathyroidism (of renal origin) Sepsis Sleep apnea Venous ulcer of left lower extremity without varicose veins Walker as ambulation aid Wears glasses Home Medications allopurinol 300 mg tablet 150 mg PO DAILY GOUT 01/27/16 [History Last Taken 12/15/22] latanoprost 0.005 % eye drops 1 drp EACH EYE QHS GLAUCOMA 12/23/18 [History Last Taken 12/14/22] tamsulosin 0.4 mg capsule 0.4 mg PO QHS PROSTATE 06/21/19 [History Last Taken 12/14/22] acetaminophen 325 mg tablet (Tylenol) 1,300 mg PO Q4H PRN Pain 08/06/22 [History Last Taken 08/04/22] aluminum-magnesium hydroxide 225 mg-200 mg/5 mL oral suspension 30 ml PO Q4H PRN Acid Reflux 08/06/22 [History Last Taken 07/31/22] ammonium lactate 12 % lotion 1 applic topical BID SEVERE DRY SKIN 08/06/22 [History Last Taken 12/15/22] aspirin 81 mg tablet,delayed release 81 mg PO DAILY HEART HEALTH 08/06/22 [History Last Taken 12/15/22] atorvastatin 80 mg tablet 80 mg PO QHS CHOLESTEROL 08/06/22 [History Last Taken 12/14/22] cinacalcet 60 mg tablet 30 mg PO MOWEFR SUPPLEMENT 08/06/22 [History Last Taken 12/15/22] vitamin B complex and vitamin C no.20-folic acid 1 mg capsule 1 cap PO DAILY SUPPLEMENT 08/06/22 [History Last Taken 12/15/22] midodrine 10 mg tablet 10 mg PO TID Check with primary doctor 10/08/22 [History Last Taken 12/15/22] furosemide 40 mg tablet 40 mg PO DAILY EDEMA 12/15/22 [History Last Taken ] guaifenesin 1,200 mg tablet, extended release 12 hr 1,200 mg PO BID CONGESTION 12/15/22 [History Last Taken 12/15/22] Allergy/AdvReac Type Severity Reaction Status Date / Time aluminum Allergy PT UNSURE Verified 12/15/22 09:18 OF REACTION amoxicillin [From Augmentin] Allergy PT UNSURE Verified 12/15/22 09:18 OF REACTION clavulanic acid Allergy PT UNSURE Verified 12/15/22 09:18 [From Augmentin] OF REACTION Family History Father Hypertension Heart disease Diabetes Mother Diabetes Chronic kidney disease Hypertension Anemia Surgical History H/O skin graft History of tonsillectomy and adenoidectomy Hx of appendectomy Hx of tonsillectomy Presence of biventricular implantable cardioverter-defibrillator (ICD) (05/14/11) Social History household members: none Smoking Status: Never smoker alcohol intake: never substance use type: does not use caffeine: Yes ROS ROS Narrative Patient is able to respond and answer questions but he appears to be at least to a degree obtunded. Not able to respond to multiple nonspecific questions other than he is interested in having dialysis catheters placed Physical Exam Narrative Patient is lying supine in bed. Oxygen is in place. He has an IV in the left forearm. He has significant ecchymosis of the proximal right forearm with evidence of an AV fistula that is nonfunctional firm and thrombosed. Const alert Resp Resp Narrative: Clear in the apices, markedly diminished bibasilar Cardio Rate: regular rate Extremity Extremity Narrative: Right forearm radiocephalic AV fistula with no pulse thrill or bruit significant ecchymosis in the proximal volar forearm Lab / Micro Data Result Diagrams: 12/16/22 07:00 12/16/22 07:00 Labs: Laboratory Results - last 24 hr 12/15/22 09:40: Sodium 118 L*, Potassium 3.9, Chloride 84 L, Carbon Dioxide 22.0, Anion Gap 12, BUN 62 H, Creatinine 7.88 H*, Estim Creat Clear Calc 10.22, Est GFR (MDRD) Af Amer 9 L, Est GFR (MDRD) Non-Af 7 L, BUN/Creatinine Ratio 7.9 L, Glucose 103, Calcium 7.8 L, Troponin I High Sens 79 H 12/15/22 11:15: Troponin I High Sens 80 H 12/16/22 02:42: POC Glucose 99 12/16/22 06:19: POC Glucose 81 12/16/22 07:00: WBC 8.9, RBC 2.77 L, Hgb 7.5 L, Hct 23.6 L, MCV 85.2 D, MCH 2 7.1, MCHC 31.8 L D, RDW Std Deviation 55.4 H, RDW Coeff of Jeffrey 17.9 H, Plt Count 151, MPV 10.3, Immature Gran % (Auto) 0.600, Neut % (Auto) 81.2 H, Lymph % (Auto) 10.3 L, [place] % (Auto) 5.7, Eos % (Auto) 2.0, Baso % (Auto) 0.2, Absolute Neuts (auto) 7.2, Absolute Lymphs (auto) 0.92, Nucleated RBC % 0 12/16/22 07:00: Sodium 120 L, Potassium 4.1, Chloride 85 L, Carbon Dioxide 26.0, Anion Gap 9, BUN 72 H, Creatinine 8.86 H*, Estim Creat Clear Calc 9.09, Est GFR (MDRD) Af Amer 8 L, Est GFR (MDRD) Non-Af 6 L, BUN/Creatinine Ratio 8.1 L, Glucose 87, Calcium 7.6 L, Phosphorus 7.3 H, Magnesium 1.9 12/16/22 07:00: PT 16.0 H, INR 1.3, APTT 38.9 H 12/16/22 07:00: Hemoglobin A1c 5.0 Micro: Microbiology 12/15/22 09:55 Nasal Secretion SARS-CoV-2 & FLU Antigen (Rapid) - Final ABG Data ABG results: ABG 12/15/22 11:58 Specimen Type BRENDON VBG pH 7.48 H VBG pO2 53 H VBG HCO3 23 VBG Total CO2 23 VBG O2 Sat (Calc) 90 H VBG Base Excess -1 POC Mix VBG pCO2 Pt Tmp 30.3 L O2 Delivery Device Room Air
--- NOTE | 2022-12-16 10:46 | NURSING ---
Patient left for surgery around 10:20am.
[2022-12-16] MEDS: Clindamycin 900 MG/50 ML BAG 75 MG IV (11:13)
[2022-12-16] MEDS: Heparin 10,000 UNITS/10 ML Vial 10000 UNITS (12:04)
[2022-12-16] MEDS: Lidocaine 1% (30 ml sdv) 30 ML Vial (12:05)
[2022-12-16] MEDS: Bupivacaine Mpf 0.5% 30 ML VIAL (12:08)
--- NOTE | 2022-12-16 12:13 | PCM.OPRPT ---
Report of Operation Date of Procedure: 12/16/22 Pre-Operative Diagnosis: Urgent need for hemodialysis access Post-Operative Diagnosis: Same Surgery/Procedure Performed:: Attempted right internal jugular dialysis catheter placement, attempted left internal jugular tunneled dialysis catheter placement, successful left subclavian 23 cm precurved dialysis catheter placement Description of Surgical Findings:: Timeout informed consent was obtained. 61-year-old gentleman was taken to the operating room urgently for hemodialysis access. He underwent monitored anesthesia care. Clindamycin 900 g were given intravenously. Initially the left neck and chest were prepped and draped and then later the procedure of the right neck and chest were prepped and draped. On my preoperative inspection of the right internal jugular I felt that it was likely thrombosed so I elected to attempt a left IJ approach. Under ultrasound guidance 1% lidocaine mixed 50-50 with 0.5% Marcaine was used as a local anesthetic. Throughout the procedure a total of 33 cc was used. Local was instilled micropuncture needle was used to gain access to the left IJ micropuncture wire advanced but then it became apparent due to pacemaker defibrillator wires that the left subclavian vein was completely occluded by that hardware I attempted placing a Glidewire which I was able to advance but even trying to place an 035 quick cross catheter I could not get that to advance over the Glidewire. I aborted that side. We reprepped the right neck and chest I attempted identify the right internal jugular vein but could not do so I attempted to access the right external jugular vein but that was too tortuous and seemingly really not a good choice either and so finally elected to take the left subclavian used a micropuncture needle with clean smooth single access micropuncture wire micropuncture sheath 035 J-wire serial dilatation was performed and an appropriate placed on the right chest wall the catheter was exited and advanced through the tunnel the sheath dilator was placed over the wire the dilator and wire removed the catheter was Major through the sheath the sheath was split the cath was positioned to be close to the SVC atrial junction. It aspirated and flushed easily. It was secured to the skin with interrupted 3-0 nylon. The counterincision was closed interrupted 5-0 Vicryl subdermal stitch. Signature silver impregnated dressing was applied. Otherwise Steri-Strips and Telfa OpSite dressings applied. Counts correct blood loss approximately 50 cc. He tolerated procedure well no apparent complication was taken to the recovery room in satisfied condition stat potable chest x-ray is pending. Specimens none. Drains none. Blood loss 50 cc Paul Moya M.D., F.A.C.S. Surgeon: Paul Moya Type of Anesthesia: Local MAC Anesthesiologist: Andre Glez
--- NOTE | 2022-12-16 13:15 | RAD_ITS ---
STUDY: X-RAY CHEST REASON FOR EXAM: Male, 61 years old. Line placement TECHNIQUE: Single AP portable view of the chest. COMPARISON: Comparison is made with prior study dated December 15, 2022. FINDINGS: A right-sided temporary dialysis catheter has been placed with the tip at the junction of the superior vena cava and right atrium. A left-sided dual-chamber pacemaker is seen. Persistent CHF although there has been improvement as compared to prior study. There is no demonstrated pleural abnormality. There is mild cardiac enlargement. Normal mediastinum and andi. Normal visualized pulmonary arteries. Normal visualized aortic arch and descending thoracic aorta. Normal visualized thoracic spine. Normal visualized ribs, clavicles, and shoulders. There is no demonstrated abnormality of the visualized soft tissue structures of the upper abdomen. RAD/Chest 1 View (Portable) IMPRESSION: The tip of the right-sided dialysis catheter is at the junction of the superior vena cava and right atrium. Residual CHF although there has been improvement as compared to prior study. Electronically Signed: Leonard Nunez MD at 14:08 EDT ,
--- NOTE | 2022-12-16 15:45 | CASEMGMT ---
[facility] received a message to call Yessi at [facility]. ([phone]) [facility] returned Yessi's phone call left a voice mail. Giselle SCHMITT
[2022-12-16 16:31] LABS: Bedside Glucose 79 mg/dL (74-106)
[2022-12-16] MEDS: Heparin 10,000 UNITS/10 ML Vial 3800 UNITS IV (17:35)
[2022-12-16 22:06] LABS: Bedside Glucose 78 mg/dL (74-106)
[2022-12-17] VITALS (11 sets, daily range): BP systolic 103–121; BP diastolic 67–88; PULSE 71–90; RESP 18–20; TEMP 36.3–37.1; O2SAT 85–100; BMI 38.0
[2022-12-17 06:00] LABS: Absolute Lymphocyte Count 0.43 X10^3/uL (0.83-4.51); Basophil# 0.02 X10^3/uL; Basophil% 0.4 % (0-1); Eosinophil# 0.12 X10^3/uL; Eosinophils% 2.5 % (0-5); Hematocrit 21.5 % (40-54); Hemoglobin 6.7 g/dL (13.0-16.5); Lymphocyte # 0.43 X10^3/ul (0.83-4.51); Lymphocyte % 8.8 % (19-41); Mean Corp Hgb Conc 31.2 g/dL (32-36); Mean Corpuscular Hgb 27.1 pg (27.0-32.0); Mean Platelet Vol. 10.8 fl (6.2-12.0); Monocyte# 0.33 X10^3/uL; Monocyte% 6.8 % (0-10); NRBC Flagged by Analyzer 0 % (0-5); Neutrophil # 3.97 X10^3/uL (2.7-7.7); Neutrophil % 81.3 % (47-70); POSITIVE DIFFERENTIAL YES; Platelet Count 153 K/mm3 (150-450); RBC Distribution Width CV 18.4 % (11.6-14.6); Red Blood Count 2.47 M/mm3 (4.6-6.2); White Blood Count 4.9 K/mm3 (4.4-11.0)
[2022-12-17 06:02] LABS: Differential Indicated SCAN CRITERIA MET
--- NOTE | 2022-12-17 06:05 | PN.SURG_ITS ---
Subjective Subjective Patient is alert enough to talk today whereas yesterday he was much more obtunded. He still seems confused to a degree as he repetitively asks the same questions that were just answered. Objective Data Objective Data Vital Signs: Vital Signs Temp Pulse Resp BP Pulse Ox O2 Del Method O2 Flow Rate 98.1 F 88 20 H 103/74 93 Nasal Cannula 2 12/17/22 03:42 12/17/22 03:42 12/17/22 03:42 12/17/22 03:42 12/17/22 05:44 12/17/22 05:44 12/17/22 05:44 Oxygen Flow Rate (L/min) 2 Oxygen Delivery Method Nasal Cannula Weight: 272 lb 14.916 oz Body Mass Index (BMI) 38.0 Intake & Output: Intake and Output for Last 24 Hours 12/15/22 12/16/22 12/17/22 23:59 23:59 23:59 Intake Total 150 / 150 Output Total 200 / 200 150 / 150 100 / 100 Balance -200 / -200 0 / 0 -100 / -100 Lab / Micro Data Result Diagrams: 12/17/22 04:30 12/16/22 07:00 Labs: Laboratory Results - last 24 hr 12/16/22 06:19: POC Glucose 81 12/16/22 07:00: WBC 8.9, RBC 2.77 L, Hgb 7.5 L, Hct 23.6 L, MCV 85.2 D, MCH 27 .1, MCHC 31.8 L D, RDW Std Deviation 55.4 H, RDW Coeff of Jeffrey 17.9 H, Plt Count 151, MPV 10.3, Immature Gran % (Auto) 0.600, Neut % (Auto) 81.2 H, Lymph % (Auto) 10.3 L, [place] % (Auto) 5.7, Eos % (Auto) 2.0, Baso % (Auto) 0.2, Absolute Neuts (auto) 7.2, Absolute Lymphs (auto) 0.92, Nucleated RBC % 0 12/16/22 07:00: Sodium 120 L, Potassium 4.1, Chloride 85 L, Carbon Dioxide 26.0, Anion Gap 9, BUN 72 H, Creatinine 8.86 H*, Estim Creat Clear Calc 9.09, Est GFR (MDRD) Af Amer 8 L, Est GFR (MDRD) Non-Af 6 L, BUN/Creatinine Ratio 8.1 L, Glucose 87, Calcium 7.6 L, Phosphorus 7.3 H, Magnesium 1.9 12/16/22 07:00: PT 16.0 H, INR 1.3, APTT 38.9 H 12/16/22 07:00: Hemoglobin A1c 5.0 12/16/22 16:09: POC Glucose 79 12/16/22 21:43: POC Glucose 78 12/17/22 04:30: WBC 4.9, RBC 2.47 L, Hgb 6.7 L, Hct 21.5 L, MCV 87.0, MCH 27.1, MCHC 31.2 L, RDW Std Deviation 57.0 H, RDW Coeff of Jeffrey 18.4 H, Plt Count 153, MPV 10.8, Immature Gran % (Auto) 0.200, Neut % (Auto) 81.3 H, Lymph % (Auto) 8.8 L, [place] % (Auto) 6.8, Eos % (Auto) 2.5, Baso % (Auto) 0.4, Absolute Neuts (auto) 4.0, Absolute Lymphs (auto) 0.43 L, Nucleated RBC % 0 Micro: Microbiology 12/15/22 09:55 Nasal Secretion SARS-CoV-2 & FLU Antigen (Rapid) - Final Radiography Diagnostic Testing: Radiology Impression Chest X-Ray 12/16/22 13:15 IMPRESSION: The tip of the right-sided dialysis catheter is at the junction of the superior vena cava and right atrium. Residual CHF although there has been improvement as compared to prior study. Electronically Signed: Leonard Nunez MD at 14:08 EDT , Physical Exam Resp Resp Narrative: Right subclavian dialysis catheter is in place. Extremity Extremity Narrative: Right forearm radiocephalic arteriovenous hemodialysis fistula thrombosed. There is a significant amount of ecchymosis in the proximal right forearm suggesting recent difficulties with access and likely extravasation. Not sure whether this contributed to the fistula thrombosis. Assessment & Plan Assessment/Plan (1) Problem with dialysis access: QUALIFIERS: Encounter type: initial encounter Qualified Code(s): T82.898A - Other specified complication of vascular prosthetic devices, implants and grafts, initial encounter PLAN: Patient has a thrombosed right forearm radiocephalic arteriovenous hemodialysis fistula. Unfortunately because of pacemaker defibrillator he wires on the left that has blocked both the left subclavian and left internal jugular approach. The patient is right internal jugular is occluded from his previously placed catheters. In a not ideal situation he now has tunneled dialysis catheters in the right subclavian vein. I believe it is reasonable to attempt a declotting of his right forearm radiocephalic arteriovenous fistula however I have been extraordinarily honest with the patient that this likely will not be successful. He has IVs now occupying potential fistula sites in his left forearm unfortunately and he has multiple areas of excoriation of the left forearm. Future dialysis access is now becoming very tentative. I propose a right upper extremity fistulogram with possible thrombolysis and an gioplasty in an attempt to salvage his thrombosed fistula. He is very much aware of technique, benefit, risks, alternatives. The patient is too ill at the moment to proceed with any immediate considerations for creating a new fistula. I believe that the risk benefit in attempting a declot is reasonable even though the likelihood of success is low. He has had an opportunity to ask and have questions answered. We will proceed approximately mid day as noted. Any dialysis treatment for the patient today will need to work around our schedule. Paul Moya M.D., F.A.C.S.
--- NOTE | 2022-12-17 06:38 | PCM.HOSP.N ---
Hospitalist Note AM Hgb 6.7 this AM, 1 u PRBC requested to be transfused.
[2022-12-17 06:45] LABS: Anisocytosis 1+
[2022-12-17 06:49] LABS: Anion Gap 9 (5-15); BUN 40 mg/dL (7-18); BUN/Creat Ratio 6.6 RATIO (10-20); Calcium,Total 7.7 mg/dL (8.5-10.1); Chloride 93 mmol/L (98-107); Creatinine, Serum 6.09 mg/dL (0.70-1.30); EST Glomerular Filtration Rate 10 mL/min (>60); Est Glom Filt Rate - Afr Amer 12 mL/min (>60); Estimated Creatinine Clearance 13.22 ml/min; Glucose 66 mg/dL (74-106); Potassium 3.6 mmol/L (3.5-5.1); Sodium Level 132 mmol/L (136-145)
[2022-12-17 07:06] LABS: Bedside Glucose 73 mg/dL (74-106)
--- NOTE | 2022-12-17 07:41 | PN.HOSP_ITS ---
Reason for Visit Reason for Visit: Diagnoses Heart failure, unspecified (12/15/22) Chronic pulmonary edema (12/15/22) End stage renal disease (12/15/22) Dyspnea, unspecified (12/15/22) Hypoxemia (12/15/22) Other specified complication of vascular prosthetic devices, implants and grafts, initial encounter (12/15/22) Subjective Subjective Patient underwent placement of a tunneled catheter by Dr. Moya the day prior. Plan is for patient to undergo declotting of his right forearm radiocephalic AV fistula when medically stable. Patient hemoglobin this morning is 6.7 plan is to transfuse patient with 1 unit PRBC during his his dialysis Objective Data Objective Data Vital Signs: Vital Signs Temp Pulse Resp BP Pulse Ox O2 Del Method O2 Flow Rate 98.1 F 88 20 H 103/74 93 Nasal Cannula 2 12/17/22 03:42 12/17/22 03:42 12/17/22 03:42 12/17/22 03:42 12/17/22 05:44 12/17/22 05:44 12/17/22 05:44 Oxygen Flow Rate (L/min) 2 Oxygen Delivery Method Nasal Cannula Weight: 123.8 kg Body Mass Index (BMI) 38.0 Intake & Output: Intake and Output for Last 24 Hours 12/15/22 12/16/22 12/17/22 23:59 23:59 23:59 Intake Total 150 / 150 Output Total 200 / 200 150 / 150 100 / 100 Balance -200 / -200 0 / 0 -100 / -100 Lab / Micro Data Result Diagrams: 12/17/22 04:30 12/17/22 04:30 Labs: Laboratory Results - last 24 hr 12/16/22 07:00: Sodium 120 L, Potassium 4.1, Chloride 85 L, Carbon Dioxide 26.0, Anion Gap 9, BUN 72 H, Creatinine 8.86 H*, Estim Creat Clear Calc 9.09, Est GFR (MDRD) Af Amer 8 L, Est GFR (MDRD) Non-Af 6 L, BUN/Creatinine Ratio 8.1 L, Glucose 87, Calcium 7.6 L, Phosphorus 7.3 H, Magnesium 1.9 12/16/22 07:00: PT 16.0 H, INR 1.3, APTT 38.9 H 12/16/22 07:00: Hemoglobin A1c 5.0 12/16/22 16:09: POC Glucose 79 12/16/22 21:43: POC Glucose 78 12/17/22 04:30: WBC 4.9, RBC 2.47 L, Hgb 6.7 L, Hct 21.5 L, MCV 87.0, MCH 27.1, MCHC 31.2 L, RDW Std Deviation 57.0 H, RDW Coeff of Jeffrey 18.4 H, Plt Count 153, MPV 10.8, Immature Gran % (Auto) 0.200, Neut % (Auto) 81.3 H, Lymph % (Auto) 8.8 L, [place] % (Auto) 6.8, Eos % (Auto) 2.5, Baso % (Auto) 0.4, Absolute Neuts (auto) 4.0, Absolute Lymphs (auto) 0.43 L, Nucleated RBC % 0, Anisocytosis 1+ 12/17/22 04:30: Sodium 132 L, Potassium 3.6, Chloride 93 L, Carbon Dioxide 30.0, Anion Gap 9, BUN 40 H, Creatinine 6.09 H, Estim Creat Clear Calc 13.22, Est GFR (MDRD) Af Amer 12 L, Est GFR (MDRD) Non-Af 10 L, BUN/Creatinine Ratio 6.6 L, Glucose 66 L, Calcium 7.7 L 12/17/22 05:39: POC Glucose 73 L 12/17/22 06:57: Crossmatch See Detail Micro: Microbiology 12/15/22 09:55 Nasal Secretion SARS-CoV-2 & FLU Antigen (Rapid) - Final Radiography Diagnostic Testing: Radiology Impression Chest X-Ray 12/16/22 13:15 IMPRESSION: The tip of the right-sided dialysis catheter is at the junction of the superior vena cava and right atrium. Residual CHF although there has been improvement as compared to prior study. Electronically Signed: Leonard Nunez MD at 14:08 EDT , Physical Exam Narrative GENERAL: cooperative but dyspneic at rest HEENT: Soft tissue lesion on the right frontal scalp EYES; Anicteric, Normal Conjunctiva NECK; supple, normal thyroid, RESPIRATORY: Diminished to auscultation CARDIOVASCULAR:? Regular S1 S2, GI:? soft, normoactive bowel sounds, : No Renal angle tenderness; EXTREMITIES: Bilateral stasis dermatitis MUSCULOSKELETAL:? no muscle wasting NEURO:? Awake;? no lateralizing signs. SKIN:? No Rash PSYCH; Flat? affect Assessment & Plan Assessment/Plan (1) Pulmonary edema: (2) Hypoxia: PLAN: Plan Patient is a 61-year-old gentleman with history of end-stage renal disease presenting with shortness of breath 1. Acute dyspnea ? Secondary to fluid overload as a result of patient's shortness of breath. Admitted to a monitored bed with consultation placed to nephrology for emergency dialysis -?12/16/2022atient seen; dialysis the day prior could not be performed since patient AV fistula had apparently clotted. Case was discussed with Dr. Donn mantilla nephrology. Plan was to have consulted vascular surgery for declotting. Patient may need tunnel catheter if his AV fistula cannot be accessed. 12/17/2022; Patient underwent placement of a tunneled catheter by Dr. Moya the day prior. Plan is for patient to undergo declotting of his right forearm radiocephalic AV fistula when medically stable. 2. End-stage renal disease ? Patient is on dialysis on Wednesdays and Fridays consultation placed to nephrology for dialysis orders 3. Severe hyponatremia ? Thought to be secondary to fluid overload status do expect improvement with dialysis 4.? Diabetes mellitus type 2 with complications including diabetic nephropathy ? Did continue with patient home regimen in addition to Accu-Cheks before meals and at bedtime with sliding scale coverage 5.? End-stage renal disease on dialysis on Mondays, Thursday and Thursday ? Consult placed to nephrology for dialysis orders 6.? Hypertension - Blood pressure low on admission antihypertensives held on admission 7.? BPH ? Patient is on tamsulosin 8.? Class II obesity with BMI of 37.9 ? Weight loss advised 9.? Anemia - Secondary to chronic disorder monitoring H&H and transfuse if patient becomes symptomatic or hemoglobin falls below? 7 - 12/17/2022 ;Patient hemoglobin this morning is 6.7 plan is to transfuse patient with 1 unit PRBC during his his dialysis 10.? DVT prophylaxis ? Bilateral SCD 11.? Physical deconditioning - Requested for PT OT eval and 7th grade social studies teacher to assist with discharge planning Time spent in the patient's overall evaluation,decision-making process, review of diagnostic data, adjustment of management, discussion with other providers, nursing nursing and ancillary staff involved in patient's care documentation, 57. Minutes Charges/Coding Visit Charges Inpatient E&M: 24568 Subs Hosp L3
--- NOTE | 2022-12-17 09:17 | CASEMGMT ---
Discharge Planning Updates sent to [facility] Coreen [place]
--- NOTE | 2022-12-17 10:20 | NURSING ---
Patient off the floor with labourers for fistulogram at this time. BS was taken prior to leaving the floor sugar was 76.
[2022-12-17 10:40] LABS: Bedside Glucose 76 mg/dL (74-106)
--- NOTE | 2022-12-17 11:27 | PCM.PN.REN ---
Subjective Subjective no new events Objective Data Objective Data Vital Signs: Vital Signs Temp Pulse Resp BP Pulse Ox O2 Del Method O2 Flow Rate 97.4 F L 84 18 111/67 96 Nasal Cannula 2 12/17/22 09:38 12/17/22 09:38 12/17/22 09:38 12/17/22 09:38 12/17/22 09:38 12/17/22 09:38 12/17/22 09:38 Oxygen Flow Rate (L/min) 2 Oxygen Delivery Method Nasal Cannula Weight: 123.8 kg Body Mass Index (BMI) 38.0 Intake & Output: Intake and Output for Last 24 Hours 12/15/22 12/16/22 12/17/22 23:59 23:59 23:59 Intake Total 150 / 150 0 / 0 Output Total 200 / 200 150 / 150 100 / 100 Balance -200 / -200 0 / 0 -100 / -100 Lab / Micro Data Result Diagrams: 12/17/22 04:30 12/17/22 04:30 Labs: Laboratory Results - last 24 hr 12/16/22 16:09: POC Glucose 79 12/16/22 21:43: POC Glucose 78 12/17/22 04:30: WBC 4.9, RBC 2.47 L, Hgb 6.7 L, Hct 21.5 L, MCV 87.0, MCH 27.1, MCHC 31.2 L, RDW Std Deviation 57.0 H, RDW Coeff of Jeffrey 18.4 H, Plt Count 153, MPV 10.8, Immature Gran % (Auto) 0.200, Neut % (Auto) 81.3 H, Lymph % (Auto) 8.8 L, [place] % (Auto) 6.8, Eos % (Auto) 2.5, Baso % (Auto) 0.4, Absolute Neuts (auto) 4.0, Absolute Lymphs (auto) 0.43 L, Nucleated RBC % 0, Anisocytosis 1+ 12/17/22 04:30: Sodium 132 L, Potassium 3.6, Chloride 93 L, Carbon Dioxide 30.0, Anion Gap 9, BUN 40 H, Creatinine 6.09 H, Estim Creat Clear Calc 13.22, Est GFR (MDRD) Af Amer 12 L, Est GFR (MDRD) Non-Af 10 L, BUN/Creatinine Ratio 6.6 L, Glucose 66 L, Calcium 7.7 L 12/17/22 05:39: POC Glucose 73 L 12/17/22 06:57: Blood Type B POSITIVE, Antibody Screen NEGATIVE, Crossmatch See Detail 12/17/22 10:10: POC Glucose 76 Micro: Microbiology 12/15/22 09:55 Nasal Secretion SARS-CoV-2 & FLU Antigen (Rapid) - Final Radiography Diagnostic Testing: Radiology Impression Chest X-Ray 12/16/22 13:15 IMPRESSION: The tip of the right-sided dialysis catheter is at the junction of the superior vena cava and right atrium. Residual CHF although there has been improvement as compared to prior study. Electronically Signed: Leonard Nunez MD at 14:08 EDT , Physical Exam Narrative Alert to name, no apparent distress Lung sounds diminished, faint rhonchi noted S1, S2, RRR Abdomen soft, nontender, positive bowel sounds No pitting edema noted bilateral lower legs Right forearm AV fistula no thrill or bruit noted Assessment & Plan Assessment/Plan (1) ESRD (end stage renal disease): (2) Dyspnea: PLAN: Plan ESRD on in Center [facility] dialysis 4 times a week Hyponatremia, hypervolemic Volume overload After AV fistula Status post dialysis. Sodium is increased to 132. This is somewhat higher than ideal but in general ESRD patients have better tolerance with sodium shifts. He is going for a fistulogram with thrombolysis today. We'll plan for dialysis after.
--- NOTE | 2022-12-17 12:27 | PCM.OPRPT ---
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 61-year-old gentleman was taken to the special procedures lab placed on the table he received 50 mcg of fentanyl 1 mg of Versed is intravenous sedation the right upper extremity was sterilely prepped and draped. There was no pulse thrill or bruit had an ultrasound there was evidence of thrombosis involving the entire forearm fistula. Under ultrasound guidance 2% lidocaine was instilled I accessed the fistula both antegrade and retrograde with micropuncture needle micropuncture wire and 6 Danish short stated dilators. There was no aspiration of blood. Then was able to obtain a fistulogram demonstrating thrombus throughout the fistula and outflow stenosis at the antecubital space/basilic vein. I was able to get the wire to go into the radial artery proximally and there was stenosis at that anastomosis. Significant amount of thrombus within the more proximal portion of the fistula closer to the wrist due to some aneurysmal change in that location. Through the sheath I injected 7000 units of heparin IV and then the patient additionally received another 1000 units of heparin later in the procedure peripherally. I initially placed a 6 x 4 Powerflex balloon and tried to balloon the venous outflow at the antecubital space. I used the 6 x 4 Powerflex balloon to balloon the arterial anastomotic area and then subsequently the entire length of the fistula I treated with the 7 x 80 mm EverCross balloon. After multiple different approaches antegrade and retrograde I had resumption of flow there there is certain residual thrombus and erratic nature. Because of the patient's critical state I elected not to use any thrombolytic today. After completion there was flow noted. I elected to complete the procedure and see if the fistula would auto clean itself. She is removed few suture of 4-0 nylon was placed. Hemostasis was intact. He tolerated procedure well there was very minimal if any discomfort. Images demonstrate a right forearm radiocephalic arteriovenous hemodialysis fistula completely thrombosed aneurysmal change in the proximal portion of the fistula close to the wrist areas of venous stenosis close to the anastomosis and at the anastomosis and in the mid fistula and then the outflow of the fistula and in the basilic vein outflow at the antecubital space. Subsequent to the multiple ballooning with a 6 x 4 Powerflex symptoms 7 x 80 ever cross the fissure is now open and flowing albeit would appear that the upper arm cephalic vein outflow remains occluded and the outflow now is through the basilic vein. There is still erratic thrombus along the velez of the fistula. Paul Moya M.D., F.A.C.S. Surgeon: Paul Moya Type of Anesthesia: IV Sedation and Local
[2022-12-17 17:38] LABS: Hepatitis B Surface Antigen Non-Reactive (Nonreactive)
--- NOTE | 2022-12-17 18:25 | DIALYSIS ---
Hemodialysis treatment x 3.5 hours (used tunneled catheter), net UF 3000 nl, VSS. Blood returned to patient. HD catheter ports closed with heparin. RN report at bedside. *Prior to using HD catheter, attempted to access right FA AVF, s/p fistulogram. Arterial end accessed with 16g needle, immediate (normal) return, good flow. However, unable to get blood return from venous end, despite 3 attempts (no blood flash obtained). Faint signal by palpation and by auscultation at venous end of AVF(near surgical incision site). Distinct whistle/wheeze appreciated closed to arterial end.
[2022-12-17] MEDS: Heparin 10,000 UNITS/10 ML Vial IV (18:35)
[2022-12-17] MEDS: Tamsulosin HCl 0.4 MG Capsule PO (21:42)
[2022-12-17] MEDS: Atorvastatin Calcium 80 MG Tablet PO (21:42)
[2022-12-17] MEDS: Latanoprost 0.005% 1 Bottle 1 DRP EACH EYE (21:48)
[2022-12-17 23:00] LABS: Bedside Glucose 101 mg/dL (74-106)
[2022-12-18] VITALS (8 sets, daily range): BP systolic 109–132; BP diastolic 71–91; PULSE 82–105; RESP 16–24; TEMP 36.6–36.9; O2SAT 93–98; BMI 36.8
[2022-12-18] MEDS: Albuterol 2.5 MG/3 ML VIAL.NEB. INHALATION (02:20)
[2022-12-18 05:49] LABS: Absolute Lymphocyte Count 0.74 X10^3/uL (0.83-4.51); Absolute Neutrophil Count 3.3 X10^3/uL (2.0-7.7); Basophil# 0.03 X10^3/uL; Basophil% 0.6 % (0-1); Eosinophil# 0.16 X10^3/uL; Eosinophils% 3.4 % (0-5); Hematocrit 25.9 % (40-54); Lymphocyte # 0.74 X10^3/ul (0.83-4.51); Lymphocyte % 15.7 % (19-41); Mean Corp Hgb Conc 30.9 g/dL (32-36); Mean Corpuscular Hgb 27.7 pg (27.0-32.0); Mean Corpuscular Volume 89.6 fL (80-94); Mean Platelet Vol. 9.9 fl (6.2-12.0); Monocyte% 10.6 % (0-10); NRBC Flagged by Analyzer 0 % (0-5); Neutrophil # 3.26 X10^3/uL (2.7-7.7); Neutrophil % 69.1 % (47-70); Platelet Count 167 K/mm3 (150-450); RBC Distribution Width CV 18.4 % (11.6-14.6); RBC Distribution Width SD 58.4 fl (35.1-43.9); Red Blood Count 2.89 M/mm3 (4.6-6.2); White Blood Count 4.7 K/mm3 (4.4-11.0)
[2022-12-18 06:22] LABS: Anion Gap 9 (5-15); BUN 24 mg/dL (7-18); BUN/Creat Ratio 5.2 RATIO (10-20); Chloride 98 mmol/L (98-107); Creatinine, Serum 4.62 mg/dL (0.70-1.30); EST Glomerular Filtration Rate 14 mL/min (>60); Est Glom Filt Rate - Afr Amer 17 mL/min (>60); Estimated Creatinine Clearance 17.43 ml/min; Glucose 87 mg/dL (74-106); Potassium 3.5 mmol/L (3.5-5.1); Sodium Level 134 mmol/L (136-145)
--- NOTE | 2022-12-18 06:22 | PN.SURG_ITS ---
Subjective Subjective Patient denies any particular issues with his right chest or right arm. Objective Data Objective Data Vital Signs: Vital Signs Temp Pulse Resp BP Pulse Ox O2 Del Method O2 Flow Rate 98.4 F 82 20 H 114/71 94 Nasal Cannula 2 12/18/22 03:35 12/18/22 03:35 12/18/22 03:35 12/18/22 03:35 12/18/22 03:35 12/18/22 03:35 12/18/22 03:35 Oxygen Flow Rate (L/min) 2 Oxygen Delivery Method Nasal Cannula Weight: 272 lb 14.916 oz Body Mass Index (BMI) 38.0 Intake & Output: Intake and Output for Last 24 Hours 12/16/22 12/17/22 12/18/22 23:59 23:59 23:59 Intake Total 150 / 150 400 / 400 Output Total 150 / 150 325 / 325 Balance 0 / 0 75 / 75 Lab / Micro Data Result Diagrams: 12/18/22 05:30 12/17/22 04:30 Labs: Laboratory Results - last 24 hr 12/17/22 04:30: Anisocytosis 1+ 12/17/22 04:30: Sodium 132 L, Potassium 3.6, Chloride 93 L, Carbon Dioxide 30.0, Anion Gap 9, BUN 40 H, Creatinine 6.09 H, Estim Creat Clear Calc 13.22, Est GFR (MDRD) Af Amer 12 L, Est GFR (MDRD) Non-Af 10 L, BUN/Creatinine Ratio 6.6 L, Glucose 66 L, Calcium 7.7 L 12/17/22 05:39: POC Glucose 73 L 12/17/22 06:57: Blood Type B POSITIVE, Antibody Screen NEGATIVE, Crossmatch See Detail 12/17/22 10:10: POC Glucose 76 12/17/22 15:15: Hep Bs Antigen Non-Reactive 12/17/22 21:40: POC Glucose 101 12/18/22 05:30: WBC 4.7, RBC 2.89 L, Hgb 8.0 L, Hct 25.9 L, MCV 89.6, MCH 27.7, MCHC 30.9 L, RDW Std Deviation 58.4 H, RDW Coeff of Jeffrey 18.4 H, Plt Count 167, MPV 9.9, Immature Gran % (Auto) 0.600, Neut % (Auto) 69.1, Lymph % (Auto) 15.7 L , [place] % (Auto) 10.6 H, Eos % (Auto) 3.4, Baso % (Auto) 0.6, Absolute Neuts (auto) 3.3, Absolute Lymphs (auto) 0.74 L, Nucleated RBC % 0 Micro: Microbiology 12/15/22 09:55 Nasal Secretion SARS-CoV-2 & FLU Antigen (Rapid) - Final Physical Exam Resp Resp Narrative: Right she has dressings intact Extremity Extremity Narrative: Right upper extremity has ecchymosis present prior to the attempted salvage intervention. The fistula does have a bruit but findings generally are weak Assessment & Plan Assessment/Plan (1) Problem with dialysis access: QUALIFIERS: Encounter type: initial encounter Qualified Code(s): T82.898A - Other specified complication of vascular prosthetic devices, implants and grafts, initial encounter PLAN: Unfortunately as anticipated the endovascular salvage attempt of the right forearm radiocephalic arteriovenous fistula once completely thrombosed is very challenging. Although it currently is patent it does not appear to be strong enough to to allow for dialysis at this time. We will need to see how this continues to evolve. Recommend continuing using dialysis catheters at least short-term. I will want to see him in further follow-up approxi-1 week after discharge. I appreciate the opportunity to have assisted with his surgical care. Paul Moya M.D., F.A.C.S.
[2022-12-18] MEDS: guaiFENesin 10 ML UDC (200MG/10ML) 20 ML PO ×2 (06:32→21:38)
[2022-12-18 06:56] LABS: Bedside Glucose 84 mg/dL (74-106)
--- NOTE | 2022-12-18 08:27 | PCM.PN.HOSP ---
Reason for Visit Reason for Visit: Diagnoses Heart failure, unspecified (12/15/22) Chronic pulmonary edema (12/15/22) End stage renal disease (12/15/22) Dyspnea, unspecified (12/15/22) Hypoxemia (12/15/22) Other specified complication of vascular prosthetic devices, implants and grafts, initial encounter (12/15/22) Subjective Subjective Fistulogram performed the day prior demonstrated completely thrombosed right for radiocephalic AV hemodialysis fistula Objective Data Objective Data Vital Signs: Vital Signs Temp Pulse Resp BP Pulse Ox O2 Del Method O2 Flow Rate 98.4 F 82 20 H 114/71 94 Nasal Cannula 2 12/18/22 03:35 12/18/22 03:35 12/18/22 03:35 12/18/22 03:35 12/18/22 03:35 12/18/22 03:35 12/18/22 03:35 Oxygen Flow Rate (L/min) 2 Oxygen Delivery Method Nasal Cannula Weight: 119.8 kg Body Mass Index (BMI) 36.8 Intake & Output: Intake and Output for Last 24 Hours 12/16/22 12/17/22 12/18/22 23:59 23:59 23:59 Intake Total 150 / 150 400 / 400 Output Total 150 / 150 325 / 325 50 / 50 Balance 0 / 0 75 / 75 -50 / -50 Lab / Micro Data Result Diagrams: 12/18/22 05:30 12/18/22 05:30 Labs: Laboratory Results - last 24 hr 12/17/22 06:57: Blood Type B POSITIVE, Antibody Screen NEGATIVE, Crossmatch See Detail 12/17/22 10:10: POC Glucose 76 12/17/22 15:15: Hep Bs Antigen Non-Reactive 12/17/22 21:40: POC Glucose 101 12/18/22 05:30: WBC 4.7, RBC 2.89 L, Hgb 8.0 L, Hct 25.9 L, MCV 89.6, MCH 27.7, MCHC 30.9 L, RDW Std Deviation 58.4 H, RDW Coeff of Jeffrey 18.4 H, Plt Count 167, MPV 9.9, Immature Gran % (Auto) 0.600, Neut % (Auto) 69.1, Lymph % (Auto) 15.7 L, [place] % (Auto) 10.6 H, Eos % (Auto) 3.4, Baso % (Auto) 0.6, Absolute Neuts (auto) 3.3, Absolute Lymphs (auto) 0.74 L, Nucleated RBC % 0 12/18/22 05:30: Sodium 134 L, Potassium 3.5, Chloride 98, Carbon Dioxide 27.0, Anion Gap 9, BUN 24 H, Creatinine 4.62 H, Estim Creat Clear Calc 17.43, Est GFR (MDRD) Af Amer 17 L, Est GFR (MDRD) Non-Af 14 L, BUN/Creatinine Ratio 5.2 L, Glucose 87, Calcium 8.0 L 12/18/22 06:30: POC Glucose 84 Micro: Microbiology 12/15/22 09:55 Nasal Secretion SARS-CoV-2 & FLU Antigen (Rapid) - Final Physical Exam Narrative GENERAL: cooperative but dyspneic at rest HEENT: Soft tissue lesion on the right frontal scalp EYES; Anicteric, Normal Conjunctiva NECK; supple, normal thyroid, RESPIRATORY: Diminished to auscultation CARDIOVASCULAR:? Regular S1 S2, GI:? soft, normoactive bowel sounds, : No Renal angle tenderness; EXTREMITIES: Bilateral stasis dermatitis MUSCULOSKELETAL:? no muscle wasting NEURO:? Awake;? no lateralizing signs. SKIN:? No Rash PSYCH; Flat? affect Assessment & Plan Assessment/Plan (1) Pulmonary edema: (2) Hypoxia: PLAN: Plan Patient is a 61-year-old gentleman with history of end-stage renal disease presenting with shortness of breath 1. Acute dyspnea ? Secondary to fluid overload as a result of patient's shortness of breath. Admitted to a monitored bed with consultation placed to nephrology for emergency dialysis -?12/16/2022atient seen; dialysis the day prior could not be performed since patient AV fistula had apparently clotted. Case was discussed with Dr. Pop with nephrology. Plan was to have consulted vascular surgery for declotting. Patient may need tunnel catheter if his AV fistula cannot be accessed. 12/17/2022; Patient underwent placement of a tunneled catheter by Dr. Moya the day prior. Plan is for patient to undergo declotting of his right forearm radiocephalic AV fistula when medically stable. ? 12/18/2022;Fistulogram performed the day prior demonstrated completely thrombosed right for radiocephalic AV hemodialysis fistula 2. End-stage renal disease ? Patient is on dialysis on Wednesdays and Fridays consultation placed to nephrology for dialysis orders 3. Severe hyponatremia ? Thought to be secondary to fluid overload status do expect improvement with dialysis ? 12/18/2022; sodium levels improved with dialysis 134 as of today 4.? Diabetes mellitus type 2 with complications including diabetic nephropathy ? Did continue with patient home regimen in addition to Accu-Cheks before meals and at bedtime with sliding scale coverage 5.? End-stage renal disease on dialysis on Mondays, Thursday and Thursday ? Consult placed to nephrology for dialysis orders 6.? Hypertension - Blood pressure low on admission antihypertensives held on admission 7.? BPH ? Patient is on tamsulosin 8.? Class II obesity with BMI of 37.9 ? Weight loss advised 9.? Anemia - Secondary to chronic disorder monitoring H&H and transfuse if patient becomes symptomatic or hemoglobin falls below? 7 - 12/17/2022 ;Patient hemoglobin this morning is 6.7 plan is to transfuse patient with 1 unit PRBC during his his dialysis 10.? DVT prophylaxis ? Bilateral SCD 11.? Physical deconditioning - Requested for PT OT eval and social science research assistant to assist with discharge planning Time spent in the patient's overall evaluation,decision-making process, review of diagnostic data, adjustment of management, discussion with other providers, nursing nursing and ancillary staff involved in patient's care documentation, 37. Minutes Charges/Coding Visit Charges Inpatient E&M: 82496 Subs Hosp L2
[2022-12-18] MEDS: Midodrine HCl 5 MG Tablet 10 MG PO ×3 (08:56→17:45)
[2022-12-18] MEDS: Folic Acid/Vitamin B Comp W-C 1 Capsule 1 CAP PO (08:57)
[2022-12-18] MEDS: Allopurinol 300 MG Tablet 150 MG PO (08:57)
[2022-12-18 11:55] LABS: Bedside Glucose 116 mg/dL (74-106)
[2022-12-18 19:11] LABS: Bedside Glucose 159 mg/dL (74-106)
--- NOTE | 2022-12-18 21:25 | PCM.PN.REN ---
Subjective Subjective no new complaints. Objective Data Objective Data Vital Signs: Vital Signs Temp Pulse Resp BP Pulse Ox O2 Del Method O2 Flow Rate 97.9 F 103 H 18 132/91 H 98 Nasal Cannula 2 12/18/22 21:06 12/18/22 21:06 12/18/22 21:06 12/18/22 21:06 12/18/22 21:06 12/18/22 21:06 12/18/22 21:06 Oxygen Flow Rate (L/min) 2 Oxygen Delivery Method Nasal Cannula Weight: 119.8 kg Body Mass Index (BMI) 36.8 Intake & Output: Intake and Output for Last 24 Hours 12/16/22 12/17/22 12/18/22 23:59 23:59 23:59 Intake Total 150 / 150 400 / 400 600 / 600 Output Total 150 / 150 325 / 325 50 / 50 Balance 0 / 0 75 / 75 550 / 550 Lab / Micro Data Result Diagrams: 12/18/22 05:30 12/18/22 05:30 Labs: Laboratory Results - last 24 hr 12/17/22 21:40: POC Glucose 101 12/18/22 05:30: WBC 4.7, RBC 2.89 L, Hgb 8.0 L, Hct 25.9 L, MCV 89.6, MCH 27.7, MCHC 30.9 L, RDW Std Deviation 58.4 H, RDW Coeff of Jeffrey 18.4 H, Plt Count 167, MPV 9.9, Immature Gran % (Auto) 0.600, Neut % (Auto) 69.1, Lymph % (Auto) 15.7 L, [place] % (Auto) 10.6 H, Eos % (Auto) 3.4, Baso % (Auto) 0.6, Absolute Neuts (auto) 3.3, Absolute Lymphs (auto) 0.74 L, Nucleated RBC % 0 12/18/22 05:30: Sodium 134 L, Potassium 3.5, Chloride 98, Carbon Dioxide 27.0, Anion Gap 9, BUN 24 H, Creatinine 4.62 H, Estim Creat Clear Calc 17.43, Est GFR (MDRD) Af Amer 17 L, Est GFR (MDRD) Non-Af 14 L, BUN/Creatinine Ratio 5.2 L, Glucose 87, Calcium 8.0 L 12/18/22 06:30: POC Glucose 84 12/18/22 11:19: POC Glucose 116 H 12/18/22 18:50: POC Glucose 159 H Micro: Microbiology 12/15/22 09:55 Nasal Secretion SARS-CoV-2 & FLU Antigen (Rapid) - Final Physical Exam Narrative Alert to name, no apparent distress Lung sounds diminished, faint rhonchi noted S1, S2, RRR Abdomen soft, nontender, positive bowel sounds No pitting edema noted bilateral lower legs Right forearm AV fistula Assessment & Plan Assessment/Plan (1) ESRD (end stage renal disease): (2) Dyspnea: PLAN: Plan ESRD on in [facility] dialysis 4 times a week Hyponatremia, hypervolemic Volume overload After AV fistula Status post dialysis. sodium better. HD yesterday. will maintain MWF schedule while in hospital. does have some bruit on exam but could not cannulate yesterday. will attempt again tomorrow.
[2022-12-18] MEDS: Tamsulosin HCl 0.4 MG Capsule PO (21:26)
[2022-12-18] MEDS: MELATONIN 3 MG TABLET PO (21:26)
[2022-12-18] MEDS: Atorvastatin Calcium 80 MG Tablet PO (21:26)
[2022-12-18] MEDS: Latanoprost 0.005% 1 Bottle 1 DRP EACH EYE (21:28)
[2022-12-18 21:55] LABS: Bedside Glucose 146 mg/dL (74-106)
[2022-12-19] VITALS (7 sets, daily range): BP systolic 118–133; BP diastolic 73–94; PULSE 92–116; RESP 16–20; TEMP 36.1–36.7; O2SAT 92–100; BMI 36.8
[2022-12-19] MEDS: guaiFENesin 10 ML UDC (200MG/10ML) 20 ML PO ×2 (03:12→16:04)
[2022-12-19] MEDS: Albuterol 2.5 MG/3 ML VIAL.NEB. INHALATION ×2 (03:30→15:02)
--- NOTE | 2022-12-19 07:33 | PCM.PN.HOSP ---
Reason for Visit Reason for Visit: Diagnoses Heart failure, unspecified (12/15/22) Chronic pulmonary edema (12/15/22) End stage renal disease (12/15/22) Dyspnea, unspecified (12/15/22) Hypoxemia (12/15/22) Other specified complication of vascular prosthetic devices, implants and grafts, initial encounter (12/15/22) Subjective Subjective Patients seen having dialysis. Clinical condition continues to improve. Case discussed with Dr. Pop with nephrology plan is for patient to be discharged with a tunneled catheter for patient to follow-up with vascular surgery as outpatient Objective Data Objective Data Vital Signs: Vital Signs Temp Pulse Resp BP Pulse Ox O2 Del Method O2 Flow Rate 98.1 F 96 18 133/73 H 92 Nasal Cannula 2 12/19/22 03:08 12/19/22 03:30 12/19/22 03:30 12/19/22 03:08 12/19/22 03:08 12/19/22 03:18 12/19/22 03:18 Oxygen Flow Rate (L/min) 2 Oxygen Delivery Method Nasal Cannula Weight: 120 kg Body Mass Index (BMI) 36.8 Intake & Output: Intake and Output for Last 24 Hours 12/17/22 12/18/22 12/19/22 23:59 23:59 23:59 Intake Total 400 / 400 1000 / 1000 500 / 500 Output Total 325 / 325 350 / 350 Balance 75 / 75 650 / 650 500 / 500 Lab / Micro Data Result Diagrams: 12/19/22 09:10 12/19/22 09:10 Labs: Laboratory Results - last 24 hr 12/18/22 11:19: POC Glucose 116 H 12/18/22 18:50: POC Glucose 159 H 12/18/22 21:25: POC Glucose 146 H Micro: Microbiology 12/15/22 09:55 Nasal Secretion SARS-CoV-2 & FLU Antigen (Rapid) - Final Physical Exam Narrative GENERAL: cooperative but dyspneic at rest HEENT: Soft tissue lesion on the right frontal scalp EYES; Anicteric, Normal Conjunctiva NECK; supple, normal thyroid, RESPIRATORY: Diminished to auscultation CARDIOVASCULAR:? Regular S1 S2, GI:? soft, normoactive bowel sounds, : No Renal angle tenderness; EXTREMITIES: Bilateral stasis dermatitis MUSCULOSKELETAL:? no muscle wasting NEURO:? Awake;? no lateralizing signs. SKIN:? No Rash PSYCH; Flat? affect Assessment & Plan Assessment/Plan (1) Pulmonary edema: (2) Hypoxia: PLAN: Plan Patient is a 61-year-old gentleman with history of end-stage renal disease presenting with shortness of breath 1. Acute dyspnea ? Secondary to fluid overload as a result of patient's shortness of breath. Admitted to a monitored bed with consultation placed to nephrology for emergency dialysis -?12/16/2022atient seen; dialysis the day prior could not be performed since patient AV fistula had apparently clotted. Case was discussed with Dr. Pop with nephrology. Plan was to have consulted vascular surgery for declotting. Patient may need tunnel catheter if his AV fistula cannot be accessed. 12/17/2022; Patient underwent placement of a tunneled catheter by Dr. Moya the day prior. Plan is for patient to undergo declotting of his right forearm radiocephalic AV fistula when medically stable. ? 12/18/2022;Fistulogram performed the day prior demonstrated completely thrombosed right for radiocephalic AV hemodialysis fistula -12/19/2022; Patients seen having dialysis. Clinical condition continues to improve. Case discussed with Dr. Pop with nephrology plan is for patient to be discharged with a tunneled catheter for patient to follow-up with vascular surgery as outpatient 2. End-stage renal disease ? Patient is on dialysis on Wednesdays and Fridays consultation placed to nephrology for dialysis orders 3. Severe hyponatremia ? Thought to be secondary to fluid overload status do expect improvement with dialysis ? 12/18/2022; sodium levels improved with dialysis 134 as of today 4.? Diabetes mellitus type 2 with complications including diabetic nephropathy ? Did continue with patient home regimen in addition to Accu-Cheks before meals and at bedtime with sliding scale coverage 5.? End-stage renal disease on dialysis on Mondays, Thursday and Thursday ? Consult placed to nephrology for dialysis orders 6.? Hypertension - Blood pressure low on admission antihypertensives held on admission 7.? BPH ? Patient is on tamsulosin 8.? Class II obesity with BMI of 37.9 ? Weight loss advised 9.? Anemia - Secondary to chronic disorder monitoring H&H and transfuse if patient becomes symptomatic or hemoglobin falls below? 7 - 12/17/2022 ;Patient hemoglobin this morning is 6.7 plan is to transfuse patient with 1 unit PRBC during his his dialysis 10.? DVT prophylaxis ? Bilateral SCD 11.? Physical deconditioning - Requested for PT OT eval and certified social workers in health care to assist with discharge planning Time spent in the patient's overall evaluation,decision-making process, review of diagnostic data, adjustment of management, discussion with other providers, nursing nursing and ancillary staff involved in patient's care documentation, 37. Minutes Charges/Coding Visit Charges Inpatient E&M: 47233 Subs Hosp L2
[2022-12-19 07:55] LABS: Bedside Glucose 107 mg/dL (74-106)
[2022-12-19 09:20] LABS: Absolute Lymphocyte Count 0.97 X10^3/uL (0.83-4.51); Absolute Neutrophil Count 4.6 X10^3/uL (2.0-7.7); Basophil# 0.04 X10^3/uL; Basophil% 0.6 % (0-1); Eosinophil# 0.14 X10^3/uL; Eosinophils% 2.3 % (0-5); Hematocrit 27.5 % (40-54); Hemoglobin 8.6 g/dL (13.0-16.5); Lymphocyte # 0.97 X10^3/ul (0.83-4.51); Lymphocyte % 15.6 % (19-41); Mean Corp Hgb Conc 31.3 g/dL (32-36); Mean Corpuscular Hgb 28.9 pg (27.0-32.0); Mean Corpuscular Volume 92.3 fL (80-94); Mean Platelet Vol. 9.9 fl (6.2-12.0); Monocyte# 0.42 X10^3/uL; Monocyte% 6.8 % (0-10); NRBC Flagged by Analyzer 0 % (0-5); Neutrophil % 74.2 % (47-70); Platelet Count 174 K/mm3 (150-450); RBC Distribution Width SD 62.4 fl (35.1-43.9); Red Blood Count 2.98 M/mm3 (4.6-6.2); White Blood Count 6.2 K/mm3 (4.4-11.0)
[2022-12-19 09:35] LABS: Anion Gap 9 (5-15); BUN 45 mg/dL (7-18); Calcium,Total 8.4 mg/dL (8.5-10.1); Chloride 100 mmol/L (98-107); Creatinine, Serum 6.47 mg/dL (0.70-1.30); EST Glomerular Filtration Rate 9 mL/min (>60); Est Glom Filt Rate - Afr Amer 11 mL/min (>60); Estimated Creatinine Clearance 12.45 ml/min; Glucose 129 mg/dL (74-106); Phosphorus 5.5 mg/dL (2.5-4.9); Potassium 3.4 mmol/L (3.5-5.1); Sodium Level 136 mmol/L (136-145)
--- NOTE | 2022-12-19 10:26 | PCM.TXEXTCAR ---
Diet Diet Order/Speech Therapy: 12/17/22 18:00 Diet: Carbohydrate Controlled Is pt able to select menu?: Yes Wound(s) RIGHT CHEST: Wound Type: Surgical Incision R NECK: Wound Type: Surgical Incision LEFT NECK: Wound Type: Surgical Incision Right forearm: Wound Type: Puncture Therapies Physical Therapy: Eval and Treat Occupational Therapy: Eval and Treat Problem/Diagnosis (1) Pulmonary edema: Status: Acute Code(s): J81.1 - Chronic pulmonary edema (2) Hypoxia: Status: Acute Code(s): R09.02 - Hypoxemia Plan Patient is a 61-year-old gentleman with history of end-stage renal disease presenting with shortness of breath 1. Acute dyspnea ? Secondary to fluid overload as a result of patient's shortness of breath. Admitted to a monitored bed with consultation placed to nephrology for emergency dialysis -?12/16/2022atient seen; dialysis the day prior could not be performed since patient AV fistula had apparently clotted. Case was discussed with Dr. Pop with nephrology. Plan was to have consulted vascular surgery for declotting. Patient may need tunnel catheter if his AV fistula cannot be accessed. 12/17/2022; Patient underwent placement of a tunneled catheter by Dr. Moya the day prior. Plan is for patient to undergo declotting of his right forearm radiocephalic AV fistula when medically stable. ? 12/18/2022;Fistulogram performed the day prior demonstrated completely thrombosed right for radiocephalic AV hemodialysis fistula -12/19/2022; Patients seen having dialysis. Clinical condition continues to improve. Case discussed with Dr. Pop with nephrology plan is for patient to be discharged with a tunneled catheter for patient to follow-up with vascular surgery as outpatient 2. End-stage renal disease ? Patient is on dialysis on Wednesdays and Fridays consultation placed to nephrology for dialysis orders 3. Severe hyponatremia ? Thought to be secondary to fluid overload status do expect improvement with dialysis ? 12/18/2022; sodium levels improved with dialysis 134 as of today 4.? Diabetes mellitus type 2 with complications including diabetic nephropathy ? Did continue with patient home regimen in addition to Accu-Cheks before meals and at bedtime with sliding scale coverage 5.? End-stage renal disease on dialysis on Mondays, Thursday and Thursday ? Consult placed to nephrology for dialysis orders 6.? Hypertension - Blood pressure low on admission antihypertensives held on admission 7.? BPH ? Patient is on tamsulosin 8.? Class II obesity with BMI of 37.9 ? Weight loss advised 9.? Anemia - Secondary to chronic disorder monitoring H&H and transfuse if patient becomes symptomatic or hemoglobin falls below? 7 - 12/17/2022 ;Patient hemoglobin this morning is 6.7 plan is to transfuse patient with 1 unit PRBC during his his dialysis 10.? DVT prophylaxis ? Bilateral SCD 11.? Physical deconditioning - Requested for PT OT eval and child welfare social worker to assist with discharge planning Time spent in the patient's overall evaluation,decision-making process, review of diagnostic data, adjustment of management, discussion with other providers, nursing nursing and ancillary staff involved in patient's care documentation, 37. Minutes Allergies/Procedures Done in Hospital Allergies aluminum Allergy (Verified 12/15/22 09:18) PT UNSURE OF REACTION amoxicillin [From Augmentin] Allergy (Verified 12/15/22 09:18) PT UNSURE OF REACTION clavulanic acid [From Augmentin] Allergy (Verified 12/15/22 09:18) PT UNSURE OF REACTION Type of Care/Length of Stay Estimated LOS: More Than 30 Days Type of Care Needed: Intermediate Rehab Potential: Fair Prognosis: Fair Additional Orders/Day of Discharge Day of Discharge: 12/19/22 Dietary and Speech Recommendations Dietitian Recommendations/Changes: Will adjust diet to 2000 calorie/consistent carbohydrate; Renal/general. PO Nepro as needed once intake established with meals. Discharge Plan Admission Admit Date/Time: 12/15/22 11:00 Attending Provider: Ernesto Akins Primary Care Provider: Janene Griffin Consulting Providers: Gilmer Pop ; Chevy Castro Discharge Orders/Prescriptions Prescriptions: Continued tamsulosin 0.4 mg capsule 0.4 mg PO QHS midodrine 10 mg tablet 10 mg PO TID Rx Instructions: do not give last dose of day after 6PM or within 4 hrs of bedtime allopurinol 300 MG tablet 150 mg PO DAILY latanoprost 1 DROP bottle 1 drp EACH EYE QHS atorvastatin 80 mg Tablet 80 mg PO QHS ammonium lactate 12 % Lotion 1 applic TOPICAL BID Rx Instructions: APPLT 1 APPLICATION TOPICALLY TO BILATERAL LOWER EXT TWO TIMES A DAY FOR SEVERELY DRY SKIN aspirin 81 mg Tablet,Delayed Release (Dr/Ec) 81 mg PO DAILY Hold Instructions: Resume on 12/09/22. aluminum-magnesium hydroxide 225-200 mg/5 mL Suspension 30 ml PO Q4H PRN (Reason: Acid Reflux) B complex with C 20-folic acid 1 mg Capsule 1 cap PO DAILY cinacalcet 60 mg Tablet 30 mg PO MOWEFR acetaminophen [Tylenol] 325 mg tablet 1,300 mg PO Q4H PRN (Reason: Pain) furosemide 40 mg Tablet 40 mg PO DAILY guaifenesin 1,200 mg Tablet Extended Release 12hr 1,200 mg PO BID Referrals / Follow Up: Janene Griffin MD [Primary Care Provider] - Within 1 Week Paul Moya MD [Med Staff - Active Staff] - In 1 Week Disposition Disposition (needs filled in before D/C Order can be placed): [facility]
--- NOTE | 2022-12-19 10:31 | DS.PCM_ITS ---
Providers Date of Admission: 12/15/22 Primary Care Physician: Dr. Janene Griffin MD Consultations 12/15/22 14:40 Consult: Nephrology Routine Consulting Provider: Gilmer Pop Reason for Consult: esrd EMERGENT Consult: No Notified: Yes Date Notified: 12/15/22 Time Notified: 11:17 Method of Notification: ED Physician Initiated 12/15/22 17:31 Consult: Vascular Surgery Routine Consulting Provider: Chevy Castro Reason for Consult: clotted fistula EMERGENT Consult: No Notified: Yes Date Notified: 12/15/22 Time Notified: 17:31 Method of Notification: Verbal Reason For Visit: DYSPNEA Diagnosis Discharge Diagnosis (1) Pulmonary edema: Status: Acute Code(s): J81.1 - Chronic pulmonary edema (2) Hypoxia: Status: Acute Code(s): R09.02 - Hypoxemia Plan Patient is a 61-year-old gentleman with history of end-stage renal disease presenting with shortness of breath 1. Acute dyspnea ? Secondary to fluid overload as a result of patient's shortness of breath. Admitted to a monitored bed with consultation placed to nephrology for emergency dialysis -?3Patient seen; dialysis the day prior could not be performed since patient AV fistula had apparently clotted. Case was discussed with Dr. Pop with nephrology. Plan was to have consulted vascular surgery for declotting. Patient may need tunnel catheter if his AV fistula cannot be accessed. 12/17/2022; Patient underwent placement of a tunneled catheter by Dr. Moya the day prior. Plan is for patient to undergo declotting of his right forearm radiocephalic AV fistula when medically stable. ? 12/18/2022;Fistulogram performed the day prior demonstrated completely thrombosed right for radiocephalic AV hemodialysis fistula -12/19/2022; Patients seen having dialysis. Clinical condition continues to improve. Case discussed with Dr. Pop with nephrology plan is for patient to be discharged with a tunneled catheter for patient to follow-up with vascular surgery as outpatient 2. End-stage renal disease ? Patient is on dialysis on Wednesdays and Fridays consultation placed to nephrology for dialysis orders 3. Severe hyponatremia ? Thought to be secondary to fluid overload status do expect improvement with dialysis ? 12/18/2022; sodium levels improved with dialysis 134 as of today 4.? Diabetes mellitus type 2 with complications including diabetic nephropathy ? Did continue with patient home regimen in addition to Accu-Cheks before meals and at bedtime with sliding scale coverage 5.? End-stage renal disease on dialysis on Mondays, Thursday and Thursday ? Consult placed to nephrology for dialysis orders 6.? Hypertension - Blood pressure low on admission antihypertensives held on admission 7.? BPH ? Patient is on tamsulosin 8.? Class II obesity with BMI of 37.9 ? Weight loss advised 9.? Anemia - Secondary to chronic disorder monitoring H&H and transfuse if patient becomes symptomatic or hemoglobin falls below? 7 - 12/17/2022 ;Patient hemoglobin this morning is 6.7 plan is to transfuse patient with 1 unit PRBC during his his dialysis 10.? DVT prophylaxis ? Bilateral SCD 11.? Physical deconditioning - Requested for PT OT eval and psychosocial rehabilitation counselor to assist with discharge planning Time spent in the patient's overall evaluation,decision-making process, review of diagnostic data, adjustment of management, discussion with other providers, nursing nursing and ancillary staff involved in patient's care documentation, 37. Minutes Medications at Discharge Home Medications allopurinol 300 mg tablet 150 mg PO DAILY GOUT 01/27/16 latanoprost 0.005 % eye drops 1 drp EACH EYE QHS GLAUCOMA 12/23/18 tamsulosin 0.4 mg capsule 0.4 mg PO QHS PROSTATE 06/21/19 acetaminophen 325 mg tablet (Tylenol) 1,300 mg PO Q4H PRN Pain 08/06/22 aluminum-magnesium hydroxide 225 mg-200 mg/5 mL oral suspension 30 ml PO Q4H PRN Acid Reflux 08/06/22 ammonium lactate 12 % lotion 1 applic topical BID SEVERE DRY SKIN 08/06/22 aspirin 81 mg tablet,delayed release 81 mg PO DAILY HEART HEALTH 08/06/22 atorvastatin 80 mg tablet 80 mg PO QHS CHOLESTEROL 08/06/22 cinacalcet 60 mg tablet 30 mg PO MOWEFR SUPPLEMENT 08/06/22 vitamin B complex and vitamin C no.20-folic acid 1 mg capsule 1 cap PO DAILY SUPPLEMENT 08/06/22 midodrine 10 mg tablet 10 mg PO TID Check with primary doctor 10/08/22 furosemide 40 mg tablet 40 mg PO DAILY EDEMA 12/15/22 guaifenesin 1,200 mg tablet, extended release 12 hr 1,200 mg PO BID CONGESTION 12/15/22 Hospital Course Summary of Care Provided Minutes Spent on Discharge: 37 Physical Exam Narrative GENERAL: cooperative HEENT: Soft tissue lesion on the right frontal scalp EYES; Anicteric, Normal Conjunctiva NECK; supple, normal thyroid, RESPIRATORY: Diminished to auscultation CARDIOVASCULAR:? Regular S1 S2, GI:? soft, normoactive bowel sounds, : No Renal angle tenderness; EXTREMITIES: Bilateral stasis dermatitis MUSCULOSKELETAL:? no muscle wasting NEURO:? Awake;? no lateralizing signs. SKIN:? No Rash PSYCH; Flat? affect Weight / BMI Weight Weight: 120 kg Body Mass Index (BMI) 36.8 ABG / Lab / Microbiology Data Result Diagrams: 12/19/22 09:10 12/19/22 09:10 Laboratory: Laboratory Results - last 24 hr 12/18/22 11:19: POC Glucose 116 H 12/18/22 18:50: POC Glucose 159 H 12/18/22 21:25: POC Glucose 146 H 12/19/22 07:33: POC Glucose 107 H 12/19/22 09:10: WBC 6.2, RBC 2.98 L, Hgb 8.6 L, Hct 27.5 L, MCV 92.3, MCH 28.9, MCHC 31.3 L, RDW Std Deviation 62.4 H, RDW Coeff of Jeffrey 19.0 H, Plt Count 174, MPV 9.9, Immature Gran % (Auto) 0.500, Neut % (Auto) 74.2 H, Lymph % (Auto) 15.6 L, [place] % (Auto) 6.8, Eos % (Auto) 2.3, Baso % (Auto) 0.6, Absolute Neuts (auto) 4.6, Absolute Lymphs (auto) 0.97, Nucleated RBC % 0 12/19/22 09:10: Sodium 136, Potassium 3.4 L, Chloride 100, Carbon Dioxide 27.0, Anion Gap 9, BUN 45 H, Creatinine 6.47 H, Estim Creat Clear Calc 12.45, Est GFR (MDRD) Af Amer 11 L, Est GFR (MDRD) Non-Af 9 L, BUN/Creatinine Ratio 7.0 L, Glucose 129 H, Calcium 8.4 L, Phosphorus 5.5 H, Magnesium 2.0 Microbiology: Microbiology 12/15/22 09:55 Nasal Secretion SARS-CoV-2 & FLU Antigen (Rapid) - Final D/C Instructions Discharge Diet: Renal Diet Discharge Activity: Return to Normal Activity Call your doctor if you observe: Fever of 101 or Higher, Shortness of breath, Fainting spells and Chest pain Meaningful Use Info Meaningful Use Diagnoses (Choose all that apply): None applicable Discharge Plan Admission Admit Date/Time: 12/15/22 11:00 Attending Provider: Ernesto Akins Primary Care Provider: Janene Griffin Consulting Providers: Gilmer Pop ; Chevy Castro Discharge Orders/Prescriptions Prescriptions: Continued tamsulosin 0.4 mg capsule 0.4 mg PO QHS midodrine 10 mg tablet 10 mg PO TID Rx Instructions: do not give last dose of day after 6PM or within 4 hrs of bedtime allopurinol 300 MG tablet 150 mg PO DAILY latanoprost 1 DROP bottle 1 drp EACH EYE QHS atorvastatin 80 mg Tablet 80 mg PO QHS ammonium lactate 12 % Lotion 1 applic TOPICAL BID Rx Instructions: APPLT 1 APPLICATION TOPICALLY TO BILATERAL LOWER EXT TWO TIMES A DAY FOR SEVERELY DRY SKIN aspirin 81 mg Tablet,Delayed Release (Dr/Ec) 81 mg PO DAILY Hold Instructions: Resume on 12/09/22. aluminum-magnesium hydroxide 225-200 mg/5 mL Suspension 30 ml PO Q4H PRN (Reason: Acid Reflux) B complex with C 20-folic acid 1 mg Capsule 1 cap PO DAILY cinacalcet 60 mg Tablet 30 mg PO MOWEFR acetaminophen [Tylenol] 325 mg tablet 1,300 mg PO Q4H PRN (Reason: Pain) furosemide 40 mg Tablet 40 mg PO DAILY guaifenesin 1,200 mg Tablet Extended Release 12hr 1,200 mg PO BID Referrals / Follow Up: Janene Griffin MD [Primary Care Provider] - Within 1 Week Paul Moya MD [Med Staff - Active Staff] - In 1 Week Disposition Disposition (needs filled in before D/C Order can be placed): Group Home Facility Charges/Coding Visit Charges Inpatient E&M: 29108 Disch Hosp >30min
[2022-12-19 11:45] LABS: Bedside Glucose 100 mg/dL (74-106)
--- NOTE | 2022-12-19 12:52 | PN.RENAL_ITS ---
Subjective Subjective no new events Objective Data Objective Data Vital Signs: Vital Signs Temp Pulse Resp BP Pulse Ox O2 Del Method O2 Flow Rate 97.8 F 116 H 18 131/94 H 96 Nasal Cannula 2 12/19/22 10:35 12/19/22 10:35 12/19/22 10:35 12/19/22 10:35 12/19/22 10:35 12/19/22 10:35 12/19/22 10:35 Oxygen Flow Rate (L/min) 2 Oxygen Delivery Method Nasal Cannula Weight: 120 kg Body Mass Index (BMI) 36.8 Intake & Output: Intake and Output for Last 24 Hours 12/17/22 12/18/22 12/19/22 23:59 23:59 23:59 Intake Total 400 / 400 1000 / 1000 500 / 500 Output Total 325 / 325 350 / 350 Balance 75 / 75 650 / 650 500 / 500 Lab / Micro Data Result Diagrams: 12/19/22 09:10 12/19/22 09:10 Labs: Laboratory Results - last 24 hr 12/18/22 18:50: POC Glucose 159 H 12/18/22 21:25: POC Glucose 146 H 12/19/22 07:33: POC Glucose 107 H 12/19/22 09:10: WBC 6.2, RBC 2.98 L, Hgb 8.6 L, Hct 27.5 L, MCV 92.3, MCH 28.9, MCHC 31.3 L, RDW Std Deviation 62.4 H, RDW Coeff of Jeffrey 19.0 H, Plt Count 174, MPV 9.9, Immature Gran % (Auto) 0.500, Neut % (Auto) 74.2 H, Lymph % (Auto) 15.6 L, [place] % (Auto) 6.8, Eos % (Auto) 2.3, Baso % (Auto) 0.6, Absolute Neuts (auto) 4.6, Absolute Lymphs (auto) 0.97, Nucleated RBC % 0 12/19/22 09:10: Sodium 136, Potassium 3.4 L, Chloride 100, Carbon Dioxide 27.0, Anion Gap 9, BUN 45 H, Creatinine 6.47 H, Estim Creat Clear Calc 12.45, Est GFR (MDRD) Af Amer 11 L, Est GFR (MDRD) Non-Af 9 L, BUN/Creatinine Ratio 7.0 L, Glucose 129 H, Calcium 8.4 L, Phosphorus 5.5 H, Magnesium 2.0 12/19/22 11:26: POC Glucose 100 Micro: Microbiology 12/15/22 09:55 Nasal Secretion SARS-CoV-2 & FLU Antigen (Rapid) - Final Physical Exam Narrative Alert to name, no apparent distress Lung sounds diminished, faint rhonchi noted S1, S2, RRR Abdomen soft, nontender, positive bowel sounds No pitting edema noted bilateral lower legs Right forearm AV fistula Assessment & Plan Assessment/Plan (1) ESRD (end stage renal disease): (2) Dyspnea: PLAN: Plan ESRD on in Center residential dialysis 4 times a week Hyponatremia, hypervolemic Volume overload After AV fistula seen on HD today. no complaints. using catheter still. fistula has bruit. will attempt next week. notified dialysis nurse at residential.
--- NOTE | 2022-12-19 12:53 | DIALYSIS ---
Hemodialysis x 3.5 hours completed. UF 2500. Patient tolerated tx well. CVC flushed with normal saline and filled to volume with heparin. Patient stable and alert. Report given to Radha duff.
[2022-12-19] MEDS: Cinacalcet HCl 30 MG Tablet PO (13:13)
[2022-12-19] MEDS: Midodrine HCl 5 MG Tablet 10 MG PO (13:13)
[2022-12-19] MEDS: Allopurinol 300 MG Tablet 150 MG PO (13:14)
[2022-12-19] MEDS: Folic Acid/Vitamin B Comp W-C 1 Capsule 1 CAP PO (13:14)
[2022-12-19] MEDS: Heparin 10,000 UNITS/10 ML Vial IV (13:15)
[2022-12-19] MEDS: Potassium Chloride Oral Tablet 20 MEQ 40 MEQ PO (13:16)
--- NOTE | 2022-12-19 13:22 | CASEMGMT ---
Discharge Planning Discharge orders and med list sent to [facility] via [employer]. Coreen Washington
--- NOTE | 2022-12-19 15:06 | CASEMGMT ---
Discharge Planning Transport scheduled with [facility] for 4p. SW notified. Coreen Washington
--- NOTE | 2022-12-19 15:17 | NURSING ---
This RN called report to KAYLI Sykes at [facility]
== END 2022-12-19 18:49 | DRG 628 ==
LOC: ED 11:47 → PCU 13:52
PROVIDERS: Anesthesiology; Internal Medicine Nephrology; Surgery; Admitting Provider Internal Medicine; Emergency Provider Emergency Medicine; PCP Internal Medicine; Visit Provider Internal Medicine
PROC: 02HV33Z Insertion of Infusion Device into Superior Vena Cava, Percutaneous Approach (ICD-10-PCS; principal; 2022-12-16 11:45)
DX: E87.70 Fluid overload, unspecified (principal); N18.6 End stage renal disease; I13.2 Hypertensive heart and chronic kidney disease with heart failure and with stage 5 chronic kidney disease, or end stage renal disease; I24.8 Other forms of acute ischemic heart disease; I42.8 Other cardiomyopathies; T82.868A Thrombosis due to vascular prosthetic devices, implants and grafts, initial encounter; I50.32 Chronic diastolic (congestive) heart failure; D63.1 Anemia in chronic kidney disease; E87.1 Hypo-osmolality and hyponatremia; I95.9 Hypotension, unspecified; E11.22 Type 2 diabetes mellitus with diabetic chronic kidney disease; Z99.2 Dependence on renal dialysis; I25.10 Atherosclerotic heart disease of native coronary artery without angina pectoris; E78.5 Hyperlipidemia, unspecified; M10.9 Gout, unspecified; Y83.8 Other surgical procedures as the cause of abnormal reaction of the patient, or of later complication, without mention of misadventure at the time of the procedure; R09.02 Hypoxemia; N40.0 Benign prostatic hyperplasia without lower urinary tract symptoms; E66.9 Obesity, unspecified; Z68.37 Body mass index [BMI] 37.0-37.9, adult; Z20.822 Contact with and (suspected) exposure to COVID-19; Z79.82 Long term (current) use of aspirin; Z95.810 Presence of automatic (implantable) cardiac defibrillator; Z79.899 Other long term (current) drug therapy
CPT/HCPCS: 36415; 36901; 36902; 71045; 71046; 76000; 76937; 80048; 82803; 82962; 83036; 83735; 84100; 84484; 85025; 85610; 85730; 86850; 86900; 86901; 86920; 86922; 87340; 87428; 90937; 93005; 94640; 94668; 99152; 99153; 99252; 99285; J7040; P9016; Q9967; A4216; C1725; C1769; C1887; C1894; G0257; G0463; J2405

== ENCOUNTER 2022-12-20 23:48 | Inpatient (IN) | payer MEDICARE, MEDICAID, SELFPAY ==
[2022-12-20 23:49] VITALS: BP 155/94; PULSE 113; RESP 18; TEMP 36.4; O2SAT 95; BMI 36.5
--- NOTE | 2022-12-20 23:56 | ED.VIS.DYS ---
HPI History of Present Illness Chief Complaint: Cough [facility] Medical History Ambulates with cane Anemia Anemia in chronic kidney disease Atherosclerosis of [place] coronary artery of [place] heart without angina pectoris Benign prostatic hyperplasia Chronic diastolic (congestive) heart failure Chronic indwelling Lucero catheter Diabetes mellitus, type II End-stage renal disease on hemodialysis Essential hypertension Lucero catheter in place Gout History of chronic renal failure Hydronephrosis concurrent with and due to calculi of kidney and ureter Hyperlipidemia ICD (implantable cardioverter-defibrillator) in place Iron deficiency anemia Left bundle branch block (LBBB) Morbid obesity Non-ischemic cardiomyopathy Non-smoker Nonsustained ventricular tachycardia Open wound RAQUEL (obstructive sleep apnea) Right foot drop Secondary hyperparathyroidism (of renal origin) Sepsis Sleep apnea Venous ulcer of left lower extremity without varicose veins Walker as ambulation aid Wears glasses Home Medications allopurinol 300 mg tablet 150 mg PO DAILY GOUT 01/27/16 [History Last Taken 12/15/22] latanoprost 0.005 % eye drops 1 drp EACH EYE QHS GLAUCOMA 12/23/18 [History Last Taken 12/14/22] tamsulosin 0.4 mg capsule 0.4 mg PO QHS PROSTATE 06/21/19 [History Last Taken 12/14/22] acetaminophen 325 mg tablet (Tylenol) 650 mg PO Q4H PRN Pain 08/06/22 [History Last Taken 08/04/22] ammonium lactate 12 % lotion 1 applic topical BID SEVERE DRY SKIN 08/06/22 [History Last Taken 12/15/22] aspirin 81 mg tablet,delayed release 81 mg PO DAILY HEART HEALTH 08/06/22 [History Last Taken 12/15/22] atorvastatin 80 mg tablet 80 mg PO QHS CHOLESTEROL 08/06/22 [History Last Taken 12/14/22] cinacalcet 60 mg tablet 30 mg PO MOWEFR SUPPLEMENT 08/06/22 [History Last Taken 12/15/22] vitamin B complex and vitamin C no.20-folic acid 1 mg capsule 1 cap PO DAILY SUPPLEMENT 08/06/22 [History Last Taken 12/15/22] midodrine 10 mg tablet 10 mg PO TID Check with primary doctor 10/08/22 [History Last Taken 12/15/22] furosemide 40 mg tablet 40 mg PO DAILY EDEMA 12/15/22 [History Last Taken 12/15/22] guaifenesin 1,200 mg tablet, extended release 12 hr 1,200 mg PO BID CONGESTION 12/15/22 [History Last Taken 12/15/22] Allergy/AdvReac Type Severity Reaction Status Date / Time aluminum Allergy PT UNSURE Verified 12/15/22 09:18 OF REACTION amoxicillin [From Augmentin] Allergy PT UNSURE Verified 12/15/22 09:18 OF REACTION clavulanic acid Allergy PT UNSURE Verified 12/15/22 09:18 [From Augmentin] OF REACTION Family History Father Hypertension Heart disease Diabetes Mother Diabetes Chronic kidney disease Hypertension Anemia Surgical History H/O skin graft History of tonsillectomy and adenoidectomy Hx of appendectomy Hx of tonsillectomy Presence of biventricular implantable cardioverter-defibrillator (ICD) (05/14/11) Social History household members: none Smoking Status: Never smoker alcohol intake: never substance use type: does not use caffeine: Yes EXAM Physical Exam Const Vital Signs: 12/20/22 23:49 12/21/22 00:00 12/21/22 01:59 Temperature 97.6 F L Temperature Source Temporal Pulse Rate 113 H Respiratory Rate 18 Respiratory Effort Normal Non-Labored Respiratory Depth Normal Respiratory Pattern Normal Blood Pressure 155/94 H Blood Pressure Mean 114 Pulse Ox 95 95 Oxygen Delivery Method Nasal Cannula Nasal Cannula Room Air Oxygen Flow Rate (L/min) 3 3 12/21/22 02:55 12/21/22 03:07 12/21/22 03:45 Temperature 98.7 F 98.0 F Temperature Source Oral Temporal Pulse Rate 127 H 125 H Respiratory Rate 25 H 28 H Respiratory Effort Respiratory Depth Respiratory Pattern Blood Pressure 129/94 H 150/89 H Blood Pressure Mean 105 109 Pulse Ox 97 94 Oxygen Delivery Method Nasal Cannula Room Air Oxygen Flow Rate (L/min) 3 MDM MDM MDM Narrative Medical decision making narrative: HISTORY OF PRESENT ILLNESS: 61-year-old male sent from nursing facility for abnormal behavior. Patient has a history remarkable for end-stage renal disease, ICD placement, nonischemic cardiomyopathy, hypertension, hyperlipidemia, diabetes mellitus and chronic indwelling Lucero catheter. The patient states he feels sick. He is a poor historian and does not provide much history. He does not endorse any additional history other than nausea. He denies chest pain, he denies shortness of breath to me. He just reiterates that he does not feel well. Per senior care the patient was requesting to go to the hospital per Sara HELLER at [facility]. She a was mainly concerned about his behavior. She notes he was being loud stating he wanted to get out of here. She states the reason for his visit to the emergency department today is mainly behavioral. She denies witnessing any vomiting, fever, denies any complaint of chest pain by the patient, denies any vital sign abnormalities. She denies any hypoxia or otherwise at the long-term facility. Last dialysis was yesterday REVIEW OF SYMPTOMS: Pertinent positives: nausea Pertinent negatives: Denies shortness of breath, chest pain, syncope PHYSICAL EXAM: Nursing triage notes reviewed, Vital signs reviewed Constitutional: please see mdm HENT: MMM Eyes: Pupils equal round and reactive to light, Extraocular muscles intact Neck: No stridor, no JVD, full neck ROM Lungs: Clear to auscultation, No wheezing or rales. No increased work of breathing, no conversational dyspnea, no accessory muscle use, no nasal flaring. No respiratory distress noted. Heart: Regular rate and rhythm, No murmurs, No rubs and No gallops, 2+ distal pulses (radial, femoral, posterior tibial) in all extremities, Port noted in right chest Abdomen: Soft, there is no tenderness, rigidity, rebound or guarding, no obvious peritoneal signs, no palpable pulsatile abdominal masses, no auscultated abdominal bruit : No CVAT Extremities: No edema Neuro: No focal neurological deficits, at baseline cranial nerves II through XII intact, 5/5 strength in all extremities. Intact sensation to light touch in all extremities, 2+ reflexes bilateral patella tendons. Skin: No rash or lesions noted MEDICAL DECISION MAKING: Chief Complaint: Nausea External records reviewed: Recent hospital admission for volume overload, hypoxia MDM: Patient is a poor historian essentially had no complaints other than I feel sick. Paradoxically the patient does not participate in history however he is alert and oriented x3 and is not altered. Patient was initially tachycardic (heart rate 113 on arrival) on 3 L by nasal cannula, otherwise hemodynamically stable and afebrile. Patient was alert and orient x3, had no obvious focal deficits. He initially would not endorse specific complaints other than I feel sick. The only complaint he ever endorse to me was nausea. He specifically denies any chest pain, shortness of breath, vomiting, abdominal pain, diarrhea. His vitals were stable and abdominal exam was benign not consistent with acute and surgical process. His lungs were clear without evidence of volume overload. He was on his baseline oxygen. His nausea was treated with 2 mg IV haloperidol (given report of behavior and his initial agitation and screaming here) patient was observed in the emergency department for approximately 3 hours, he continued to refuse to give a reliable history. The Patient stated nausea was brianna after IV haldol. Vital signs were repeated and he was noted to be tachycardic and tachypneic. Given the patient's ongoing tachycardia I decided to initiate work-up to rule out signs of end-organ damage, signs of worsening renal failure, pneumonia, volume overload. Additional labs, images had no signs of arrhythmia, electrolyte abnormalities, anemia, pneumonia, or heart failure. Labs without signs of hyperkalemia. No signs of significant anemia. Chest x-ray without evidence of volume overload or pneumonia. No signs of decompensated heart failure. Patient's labs were remarkable for leukocytosis which is nonspecific but does suggest systemic inflammation. This along with his tachycardia may be indicative of an underlying infection although we do not have a source of infection at this time. At this point i ordered a lucero replacement and added a UA. Another potential etiology is pulmonary embolism with his risk of recent hospitalization however without endorsed chest pain or shortness of breath here it is difficult to imagine the patient suffering from a life-threatening pulmonary VTE. In the same vein without subjective chest pain or shortness of breath and no EKG changes is difficult to manage the patient is having ACS. In addition to this the patient has poor IV access (distal left hand 22g IV) and a contrasted study at this time is not possible. Certainly the patient's vital sign abnormalities may be related to his abnormal behavior may have underlying psychogenic component however given his multiple medical comorbidities, advanced age and recent hospitalization do not feel safe discharging the patient. I think the best course of action is to have the patient observed in the hospital to continue work-up and evaluation. I discussed patient's case with the hospitalist Dr. Roberts who accepted his case to the PCU. I obtained a broad lab and imaging work-up to further elucidate etiology the patient's complaint. Labs at this point showed Factors affecting care: ESRD Social determinants of health: poor health literacy History obtained from others: Shared decision making: I will have a discussion with the patient and or visitors regarding risk/benefits of further testing or admission. They will be made aware of of the risk/benefits inherent in this decision they will be given the opportunity to voice understanding. Consults: Internal Medicine Lab Data Attestation: I reviewed the patient's lab results. Lab results narrative: CBC with leukocytosis, stable anemia, no thrombocytopenia BMP without significant electrolyte normalities, no potassium abnormalities, no anion gap to suggest endorgan hypoperfusion, end-stage renal disease Labs: Laboratory Results - last 24 hr 12/21/22 12/21/22 12/21/22 03:00 03:00 03:00 WBC 14.0 H RBC 3.48 L Hgb 9.6 L Hct 31.5 L MCV 90.5 MCH 27.6 MCHC 30.5 L RDW Std Deviation 64.2 H RDW Coeff of Jeffrey 19.6 H Plt Count 189 MPV 9.8 Immature Gran % (Auto) 0.500 Neut % (Auto) 89.2 H Lymph % (Auto) 4.4 L [place] % (Auto) 5.4 Eos % (Auto) 0.1 Baso % (Auto) 0.4 Absolute Neuts (auto) 12.5 H Absolute Lymphs (auto) 0.61 L Nucleated RBC % 0 ESR 86 H Sodium 137 Potassium 4.9 Chloride 103 Carbon Dioxide 19.0 L Anion Gap 15 BUN 54 H Creatinine 6.76 H Estim Creat Clear Calc 11.91 Est GFR (MDRD) Af Amer 11 L Est GFR (MDRD) Non-Af 9 L BUN/Creatinine Ratio 8.0 L Glucose 142 H Calcium 8.8 Phosphorus Magnesium Total Bilirubin Direct Bilirubin AST ALT Alkaline Phosphatase C-React Prot Ext Range Total Protein Albumin Globulin Lipase 12/21/22 12/21/22 03:00 03:00 WBC RBC Hgb Hct MCV MCH MCHC RDW Std Deviation RDW Coeff of Jeffrey Plt Count MPV Immature Gran % (Auto) Neut % (Auto) Lymph % (Auto) [place] % (Auto) Eos % (Auto) Baso % (Auto) Absolute Neuts (auto) Absolute Lymphs (auto) Nucleated RBC % ESR Sodium Potassium Chloride Carbon Dioxide Anion Gap BUN Creatinine Estim Creat Clear Calc Est GFR (MDRD) Af Amer Est GFR (MDRD) Non-Af BUN/Creatinine Ratio Glucose Calcium Phosphorus 4.4 Magnesium 1.5 L Total Bilirubin 1.40 H Direct Bilirubin 0.41 H AST 120 H ALT 41 Alkaline Phosphatase 108 C-React Prot Ext Range 59.10 H Total Protein 7.6 Albumin 2.6 L Globulin 5.0 H Lipase 53 Radiography Chest X-Ray - ED: Read by ED Physician Diagnostic Testing: Clinical Impression(s) from Imaging Studies Chest X-Ray 12/21/22 03:10 IMPRESSION: No radiographic evidence of acute cardiopulmonary disease. Electronically Signed: Mati Zaldivar MD at 3:30 EDT Reading Location ID and State: [facility] / [place] Tel , Service support , Chest x-ray negative for pneumonia or heart failure. Discharge Plan Dx/Rx/DC Orders Clinical Impression: Tachycardia, Tachypnea, History of end stage renal disease, Leukocytosis, Anemia due to chronic kidney disease Disposition Disposition: Acute Care [facility]
[2022-12-21] VITALS (11 sets, daily range): BP systolic 105–150; BP diastolic 79–130; PULSE 98–127; RESP 18–28; TEMP 36.3–37.1; O2SAT 94–98; BMI 35.6
[2022-12-21] MEDS: Haloperidol Lactate 5 MG/ML Vial 2 MG IV (00:57)
--- NOTE | 2022-12-21 02:59 | EKG12_ITS ---
Test Reason : GENERAL ILLNESS Blood Pressure : / mmHG Vent. Rate : 127 BPM Atrial Rate : 127 BPM P-R Int : 000 ms QRS Dur : 152 ms QT Int : 356 ms P-R-T Axes : 000 256 070 degrees QTc Int : 517 ms Ventricular-paced rhythm Biventricular pacemaker detected Abnormal ECG Confirmed by CRISTOBAL ARCHER, ELIZABETH ([id number]), supervising editor news reel VALENTINA DONOVAN ([id number]) on 12/22/2022 2:48:03 PM Referred By: Confirmed By:ALVIN JAIN MD
--- NOTE | 2022-12-21 03:10 | RAD_ITS ---
INDICATION: cough EXAMINATION/TECHNIQUE: X-RAY - XR Chest 1 View COMPARISON: FINDINGS: LINES/DEVICES: Pacemaker on the left LUNGS: No consolidation, edema or effusion. No pneumothorax. MEDIASTINUM AND CARDIOVASCULAR STRUCTURES: Moderate cardiomegaly. BONES AND SOFT TISSUES: Unremarkable. RAD/Chest 1 View (Portable) IMPRESSION: No radiographic evidence of acute cardiopulmonary disease. Electronically Signed: Mati Zaldivar MD at 3:30 EDT ,
[2022-12-21 03:11] LABS: Absolute Lymphocyte Count 0.61 X10^3/uL (0.83-4.51); Absolute Neutrophil Count 12.5 X10^3/uL (2.0-7.7); Basophil# 0.06 X10^3/uL; Basophil% 0.4 % (0-1); Eosinophil# 0.01 X10^3/uL; Eosinophils% 0.1 % (0-5); Hematocrit 31.5 % (40-54); Hemoglobin 9.6 g/dL (13.0-16.5); Lymphocyte # 0.61 X10^3/ul (0.83-4.51); Lymphocyte % 4.4 % (19-41); Mean Corp Hgb Conc 30.5 g/dL (32-36); Mean Corpuscular Hgb 27.6 pg (27.0-32.0); Mean Corpuscular Volume 90.5 fL (80-94); Mean Platelet Vol. 9.8 fl (6.2-12.0); Monocyte# 0.76 X10^3/uL; Monocyte% 5.4 % (0-10); NRBC Flagged by Analyzer 0 % (0-5); Neutrophil # 12.48 X10^3/uL (2.7-7.7); Neutrophil % 89.2 % (47-70); Platelet Count 189 K/mm3 (150-450); RBC Distribution Width CV 19.6 % (11.6-14.6); RBC Distribution Width SD 64.2 fl (35.1-43.9); Red Blood Count 3.48 M/mm3 (4.6-6.2)
[2022-12-21 03:24] LABS: Anion Gap 15 (5-15); BUN 54 mg/dL (7-18); Calcium,Total 8.8 mg/dL (8.5-10.1); Chloride 103 mmol/L (98-107); Creatinine, Serum 6.76 mg/dL (0.70-1.30); EST Glomerular Filtration Rate 9 mL/min (>60); Est Glom Filt Rate - Afr Amer 11 mL/min (>60); Estimated Creatinine Clearance 11.91 ml/min; Glucose 142 mg/dL (74-106); Potassium 4.9 mmol/L (3.5-5.1); Sodium Level 137 mmol/L (136-145)
--- NOTE | 2022-12-21 03:56 | HP.PCM.HOS_ITS ---
HPI - General General Date of Admission: 12/21/22 Date of Service: 12/21/22 Chief Complaint: Nausea. HPI Narrative The patient is a 61 y/o M w/ PMHx: Obesity, CAD, ESRD on HD (T, Th, Sat w/ Dr. Chavez prior but most recent visit w/ Dr. Pop evaluation), HTN, HLD, Chronic Combined CHF/Nonischemic Cardiomyopathy, Hx NSVT s/p AICD placement, Diabetes mellitus type II, Chronic anemia/AOCD/Fe deficiency anemia, RAQUEL, Chronic venous stasis disease, recent discharged on 12/19/22 following treatment for acute dyspnea felt secondary to overload as well as AV fistula malfunction with fistulogram performed and demonstrated complete thrombosed right radiocephalic AV dialysis access with tunneled catheter placed with planned vascular surgery outpatient who now re-presents to the [facility] ED on 12/21/22 with history of irritability per residential staff and patient request to be taken to the hospital with upon presentation appropriate orientation but eventually a listed complaint of nausea otherwise no abdominal pain, chest pain, dyspnea or marked c ough. Patient upon hospitalist evaluation does not appear as he previously did during prior presentation with tachypnea, tachycardic but unclear specific etiology. Patient certainly given leukocytosis could have underlying infection as etiology but also with notable comorbidities certainly could be at risk for PE. Work-up in the ED included T97.6, heart rate initially 113, BP 155/94, respiratory rate 18, 95% on 3 L nasal cannula, CBC with WC 14, hemoglobin 9.6, MCV 90.5, platelet 189 with left shift and lymphopenia, BMP with carbon oxide 19, BUN/creatinine 54/6.76, glucose 142, chest x-ray with no acute cardiopulmonary finding with initial report to ED physician of feeling unwell with mild nausea but no chest pain or dyspnea and per nursing facility irritability and not following any requests prompting transition to the ED for evaluation. Patient was administered Haldol 2 mg IV for his nausea which did improve however he had persistent tachycardia which was concerning to the ED physician about his tachycardia and requested he be admitted. [facility] Medical History Ambulates with cane Anemia Anemia in chronic kidney disease Atherosclerosis of [place] coronary artery of [place] heart without angina pectoris Benign prostatic hyperplasia Chronic diastolic (congestive) heart failure Chronic indwelling Lucero catheter Diabetes mellitus, type II End-stage renal disease on hemodialysis Essential hypertension Lucero catheter in place Gout History of chronic renal failure Hydronephrosis concurrent with and due to calculi of kidney and ureter Hyperlipidemia ICD (implantable cardioverter-defibrillator) in place Iron deficiency anemia Left bundle branch block (LBBB) Morbid obesity Non-ischemic cardiomyopathy Non-smoker Nonsustained ventricular tachycardia Open wound RAQUEL (obstructive sleep apnea) Right foot drop Secondary hyperparathyroidism (of renal origin) Sepsis Sleep apnea Venous ulcer of left lower extremity without varicose veins Walker as ambulation aid Wears glasses Home Medications allopurinol 300 mg tablet 150 mg PO DAILY GOUT 01/27/16 [History Last Taken 12/15/22] latanoprost 0.005 % eye drops 1 drp EACH EYE QHS GLAUCOMA 12/23/18 [History Last Taken 12/14/22] tamsulosin 0.4 mg capsule 0.4 mg PO QHS PROSTATE 06/21/19 [History Last Taken 12/14/22] acetaminophen 325 mg tablet (Tylenol) 650 mg PO Q4H PRN Pain 08/06/22 [History Last Taken 08/04/22] ammonium lactate 12 % lotion 1 applic topical BID SEVERE DRY SKIN 08/06/22 [History Last Taken 12/15/22] aspirin 81 mg tablet,delayed release 81 mg PO DAILY HEART HEALTH 08/06/22 [History Last Taken 12/15/22] atorvastatin 80 mg tablet 80 mg PO QHS CHOLESTEROL 08/06/22 [History Last Taken 12/14/22] cinacalcet 60 mg tablet 30 mg PO MOWEFR SUPPLEMENT 08/06/22 [History Last Taken 12/15/22] vitamin B complex and vitamin C no.20-folic acid 1 mg capsule 1 cap PO DAILY SUPPLEMENT 08/06/22 [History Last Taken 12/15/22] midodrine 10 mg tablet 10 mg PO TID Check with primary doctor 10/08/22 [History Last Taken 12/15/22] furosemide 40 mg tablet 40 mg PO DAILY EDEMA 12/15/22 [History Last Taken 12/15/22] guaifenesin 1,200 mg tablet, extended release 12 hr 1,200 mg PO BID CONGESTION 12/15/22 [History Last Taken 12/15/22] Allergy/AdvReac Type Severity Reaction Status Date / Time aluminum Allergy PT UNSURE Verified 12/15/22 09:18 OF REACTION Family History Father Hypertension Heart disease Diabetes Mother Diabetes Chronic kidney disease Hypertension Anemia Surgical History H/O skin graft History of tonsillectomy and adenoidectomy Hx of appendectomy Hx of tonsillectomy Presence of biventricular implantable cardioverter-defibrillator (ICD) (05/14/11) Social History household members: none Smoking Status: Never smoker alcohol intake: never substance use type: does not use caffeine: Yes ROS ROS Narrative Admission Review of Systems: CONSTITUTIONAL: No weight loss, fever, chills, + weakness, fatigue. HEENT: Eyes: No visual loss, blurred vision, double vision or yellow sclerae. Ears, Nose, Throat: No hearing loss, sneezing, congestion, runny nose or sore throat. SKIN: + chronic extremity abasions/wounds, BL LE chronic venous stasis skin changes, s/p skin grafting, head skin lesion. CARDIOVASCULAR:+Tachycardia, No chest pain, chest pressure or chest discomfort, palpitations, edema, orthopnea, syncopal events. RESPIRATORY: + Mild cough, No shortness of breath, marked sputum, wheezing, hemoptysis. GASTROINTESTINAL: + Nausea. No vomiting, abdominal pain, diarrhea, melena, BRBPR. GENITOURINARY: + Chronic lucero, chronic retention. No dysuria, frequency, urgency. NEUROLOGICAL: No headache, dizziness, syncope, paralysis, ataxia, numbness or tingling in the extremities, focal weakness, change in bowel or bladder control, seizure. MUSCULOSKELETAL: + muscle, back pain, joint pain or stiffness. HEMATOLOGIC: + anemia, bleeding or bruising. LYMPHATICS: No enlarged nodes. No history of splenectomy. PSYCHIATRIC: No history of depression or anxiety. ENDOCRINOLOGIC: No reports of sweating, cold or heat intolerance. No polyuria or polydipsia. ALLERGIES: No history of asthma, hives, eczema or rhinitis. Vital Signs Vital Signs Vital Signs: 12/20/22 23:49 12/21/22 00:00 12/21/22 01:59 Temperature 97.6 F L Temperature Source Temporal Pulse Rate 113 H Respiratory Rate 18 Respiratory Effort Normal Non-Labored Respiratory Depth Normal Respiratory Pattern Normal Blood Pressure 155/94 H Blood Pressure Mean 114 Pulse Ox 95 95 Oxygen Delivery Method Nasal Cannula Nasal Cannula Room Air Oxygen Flow Rate (L/min) 3 3 12/21/22 02:55 12/21/22 03:07 12/21/22 03:45 Temperature 98.7 F 98.0 F Temperature Source Oral Temporal Pulse Rate 127 H 125 H Respiratory Rate 25 H 28 H Respiratory Effort Respiratory Depth Respiratory Pattern Blood Pressure 129/94 H 150/89 H Blood Pressure Mean 105 109 Pulse Ox 97 94 Oxygen Delivery Method Nasal Cannula Room Air Oxygen Flow Rate (L/min) 3 Weight Weight: 261 lb 14.546 oz Body Mass Index (BMI) 36.5 Physical Exam Narrative Physical Examination: General: Awake, alert, oriented to self, place and recent events, was reported as irritable with staff at [facility] which is consistent with his baseline behavior, upon current presentation does appear tachypneic and noted to be tachycardic which is not his baseline presentation, fatigue. Skin: Normal color, normal turgor, no icterus, no cyanosis except chronic extremity abrasions, evidence BL LE skin grafts prior, chronic R scalp lesion, chronic bilateral lower extremity venous stasis skin changes. HEENT: AT/NC, EOMI, PERRLA, mildly dry MM, chronic lesion noted on the scalp right lateral, no obvious carotid bruits or JVD noted; however thickened neck makes examination difficult. Lungs: Diminished breath sounds, greater bases, appropriate effort, no marked rales, ronchi or wheezing. Heart: Mildly tachycardic with rate in the 120s with regular rhythm; no gallop, rub audible. Abdomen: Soft, obese, no obvious discomfort to palpation, no grimacing, rebound or guarding, Lucero catheter changed out in the ED, difficult to assess distention and HSM given habitus, mildly hyperactive bowel sounds. Extremities: No cyanosis, no clubbing, chronic BL LE venous stasis skin changes as noted. Neurological: Patient awake, alert, oriented as noted, cognitive function seems to be intact with appropriate orientation; pupils equally reactive to light and accommodation, cranial nerves grossly normal, moving all 4 extremities, no focal deficits, strength moderately to severely globally decreased. Psychiatric: Affect appears fatigued, appears tachypneic but unclear etiology, no acute evidence of depressive or anxiety feelings. Results Lab / Micro Data Result Diagrams: 12/21/22 03:00 12/21/22 03:00 Labs: Laboratory Results - last 24 hr 12/21/22 03:00: Sodium 137, Potassium 4.9, Chloride 103, Carbon Dioxide 19.0 L, Anion Gap 15, BUN 54 H, Creatinine 6.76 H, Estim Creat Clear Calc 11.91, Est GFR (MDRD) Af Amer 11 L, Est GFR (MDRD) Non-Af 9 L, BUN/Creatinine Ratio 8.0 L, Glucose 142 H, Calcium 8.8 12/21/22 03:00: WBC 14.0 H, RBC 3.48 L, Hgb 9.6 L, Hct 31.5 L, MCV 90.5, MCH 27.6, MCHC 30.5 L, RDW Std Deviation 64.2 H, RDW Coeff of Jeffrey 19.6 H, Plt Count 189, MPV 9.8, Immature Gran % (Auto) 0.500, Neut % (Auto) 89.2 H, Lymph % (Auto) 4.4 L, [place] % (Auto) 5.4, Eos % (Auto) 0.1, Baso % (Auto) 0.4, Absolute Neuts (auto) 12.5 H, Absolute Lymphs (auto) 0.61 L, Nucleated RBC % 0 Radiology Impression Chest X-Ray 12/21/22 03:10 IMPRESSION: No radiographic evidence of acute cardiopulmonary disease. Electronically Signed: Mati Zaldivar MD at 3:30 EDT , Assessment & Plan Assessment/Plan (1) Tachycardia: PLAN: Plan The patient is a 61 y/o M w/ PMHx: Obesity, CAD, ESRD on HD (T, Th, Sat w/ Dr. Chavez prior but most recent visit w/ Dr. Pop evaluation), HTN, HLD, Chronic Combined CHF/Nonischemic Cardiomyopathy, Hx NSVT s/p AICD placement, Diabetes mellitus type II, Chronic anemia/AOCD/Fe deficiency anemia, RAQUEL, Chronic venous stasis disease, recent discharged on 12/19/22 following treatment for acute dyspnea felt secondary to overload as well as AV fistula malfunction with fistulogram performed and demonstrated complete thrombosed right radiocephalic AV dialysis access with tunneled catheter placed with planned vascular surgery outpatient who now re-presents to the [facility] ED on 12/21/22 with history of irritability per residential staff and patient request to be taken to the hospital with upon presentation appropriate orientation but eventually a listed complaint of nausea. #1. Nausea of unclear etiology with persistent tachycardia with new leukocytosis: We will admit to PCU given tachycardia with heart rate noted in the 110s to 120s which was increased from prior although on 12/19/2022 patient did start to have mild tachycardia and also had it similarly during his prior presentation in November, will maintain on telemetry, will cycle cardiac enzymes to be cautious, at this time will obtain a D-dimer however given his underlying renal disease would expect this to be mildly elevated and if this is the case then we will proceed with a CTPA given that he is a dialysis patient would plan dialysis following, repeat EKG as needed, will judiciously hydrate especially given recent overload presentation during prior presentation, obtain procalcitonin, obtain ESR and CRP, no marked abdominal pain thus CT deferred upon presentation but low threshold if onset in the interim we will also obtain hepatic profile and lipase, maintain on PPI with clears until nausea abated and further evaluation of presentation clinical picture, urinalysis and urine culture are pending at this time and if consistent with urinary tract infection would add antibiotic therapy, last culture with Proteus and was 80,000-100,000 CFU with decent sensitivities at that time, also given recent HD access placement and RUE surgical intervention with angioplasty will obtain Bld Cx, one off of new access. If inflammatory labs and procalcitonin notable for possible infection would plan to add BSA pending elucidation of source. #2. Chronic Combined CHF/Nonischemic cardiomyopathy: Status post prior AICD placement, we will continue patient home aspirin, statin, not on STACY inhibitor/ARB, beta-keisha nor diuretic therapy with transition to midodrine, continue lasix regimen if BP remains appropriate. 06/23/2022 echocardiogram with normal LV size, EF 35%, moderately severe segmental systolic dysfunction with worsening of LV systolic function compared to prior echocardiogram. #3. ESRD: We will continue dialysis [facility] Hospital regimen, outpatient from records is 4x weekly, will request re-involvement of Dr. Pop and if necessary if CTPA performed would plan dialysis the following day or day of, will continue patient on midodrine and Cinacalcet regimen. #4. Hypertension: During prior admission patient with low BP therefore his hypertensive medication and been held at that time, BP upon current presentation appears normalized, we will continue patient home Lasix regimen with overlapping midodrine given his orthostasis history concurrently, as needed IV hydralazine. #5. Hyperlipidemia: We will continue patient home statin therapy. #6. History of diabetes: Patient with history of diabetes, no longer on any regimen, last hemoglobin A1c 12/16/2022 5% but prior to this had been consistent with diabetes, diet controlled currently, will maintain on renal/ADA diet with Accu-Cheks and insulin sliding scale. #7. Chronic anemia/anemia of chronic disease: Admission hemoglobin 9.6, baseline hemoglobin primarily in the 9 range but has vacillated and during recent admission on 12/17/2022 hemoglobin 6.7 required 1 unit PRBC administration, will continue to trend. #8. Gout: We will continue patient on allopurinol regimen. #9. BPH with chronic indwelling Lucero catheter secondary to retention: We will continue patient on Flomax regimen, Lucero catheter changed out in the ED, urinalysis as well as urine culture pending as noted with further treatment and evaluation of infection present. #10. Glaucoma: We will continue patient on eyedrops. #11. Obesity: Weight loss and lifestyle changes encouraged. #12. RAQUEL: CPAP nightly. #13. CODE status: Full Code per facility paperwork and recent admission, confirmed again upon admission currently. #14. DVT prophylaxis: Heparin. Admission Evaluation Time spent evaluating chart, patient history, patient evaluation, care planning and discussion with specialists: 60 minutes.
[2022-12-21 04:30] LABS: Magnesium 1.5 mg/dL (1.6-2.6); Phosphorus 4.4 mg/dL (2.5-4.9)
[2022-12-21 04:44] LABS: AST(SGOT) 120 U/L (15-37); Alanine Aminotransfer ALT/SGPT 41 U/L (16-61); Albumin, Serum 2.6 g/dL (3.2-5.0); Alkaline Phosphatase 108 U/L (45-117); Bilirubin, Direct 0.41 mg/dL (0.00-0.30); Lipase 53 U/L (13-75); Protein, Total 7.6 g/dL (6.4-8.2)
[2022-12-21 04:50] LABS: Erythrocyte Sedimentation Rate 86 mm/hr (0-20)
[2022-12-21 05:06] LABS: Procalcitonin 2.86 ng/mL (0.00-0.09)
[2022-12-21 05:11] LABS: Lactic Acid 2.8 mmol/L (0.4-1.9)
--- NOTE | 2022-12-21 05:35 | NURSING ---
old lucero removed. attempted to replace lucero with 16fr unsuccessful. attempted with coude and a 14fr unable to place. Hospitalist updated.
[2022-12-21 06:51] LABS: D-Dimer Quantitative (DVT/PE) 8.94 FEU/ug/m (0.27-0.49)
--- NOTE | 2022-12-21 06:53 | CT_ITS ---
STUDY: CTA CHEST REASON FOR EXAM: Male, 61 years old. Suspected PE, elevated d-dimer RADIATION DOSAGE (If Supplied By Facility): CTDIvol = ( ) mGy, DLP = ( ) mGycm TECHNIQUE: The examination was performed with the intravenous administration of IV 100mL [id number]-370. Post-processing of the angiographic images was performed, with multiplanar reformation and 3D reconstruction. Individualized dose optimization techniques were used for this CT. COMPARISON: FINDINGS: Normal enhancement of the main pulmonary artery and right and left pulmonary arteries. Normal enhancement of the bilateral peripheral pulmonary arteries. There is no demonstrated pulmonary embolism. There is atherosclerotic calcification of the aortic arch and descending thoracic aorta. There is no demonstrated aortic dissection. There are calcifications of the coronary arteries. There is cardiomegaly. There is a cardiac pacer device in place. Normal mediastinum. Normal hilar regions. Normal visualized trachea and bronchi. There are bilateral pleural effusions associated with dependent consolidation within the lower lobes. Normal chest wall structures. Normal osseous structures. Normal visualized upper abdomen. CT/CTA Chest W/WO Contrast IMPRESSION: No demonstrated pulmonary embolism or arterial dissection. Bilateral pleural effusions associated with dependent lower lobe consolidation. Atherosclerosis. Cardiomegaly. Electronically Signed: Ninoska Adames MD at 8:34 EDT ,
--- NOTE | 2022-12-21 06:57 | NURSING ---
Attempt to place Barnes catheter with 16Fr, this RN unsuccessful, urology consulted
[2022-12-21 07:00] LABS: Bedside Glucose 136 mg/dL (74-106)
--- NOTE | 2022-12-21 07:30 | PCM.HOSP.N ---
Hospitalist Note Patient is a 61-year-old gentleman with history of end-stage renal disease discharged from the hospital 2 days prior brought back to the ED with shortness of breath. Patient was found to have thrombosed AV fistula attempt at declotting unsuccessful patient had a tunneled catheter placed with initiation of dialysis. Admitted to a monitored bed. His initial assessment including history and physical diagnostic data and management orders reviewed will follow
[2022-12-21 08:12] LABS: Absolute Neutrophil Count 16.9 X10^3/uL (2.0-7.7); Basophil# 0.04 X10^3/uL; Basophil% 0.2 % (0-1); Eosinophil# 0.01 X10^3/uL; Eosinophils% 0.1 % (0-5); Hematocrit 31.9 % (40-54); Hemoglobin 9.5 g/dL (13.0-16.5); Lymphocyte % 3.2 % (19-41); Mean Corp Hgb Conc 29.8 g/dL (32-36); Mean Corpuscular Hgb 27.7 pg (27.0-32.0); Mean Platelet Vol. 10.1 fl (6.2-12.0); Monocyte# 0.98 X10^3/uL; Monocyte% 5.2 % (0-10); NRBC Flagged by Analyzer 0 % (0-5); Neutrophil # 16.94 X10^3/uL (2.7-7.7); Neutrophil % 90.8 % (47-70); POSITIVE DIFFERENTIAL YES; POSITIVE MORPHOLOGY YES; Platelet Count 206 K/mm3 (150-450); RBC Distribution Width CV 19.9 % (11.6-14.6); RBC Distribution Width SD 66.7 fl (35.1-43.9); Red Blood Count 3.43 M/mm3 (4.6-6.2); White Blood Count 18.7 K/mm3 (4.4-11.0)
[2022-12-21 08:13] LABS: Differential Indicated SCAN CRITERIA MET
[2022-12-21 08:21] LABS: Reflex Lactate? Y
--- NOTE | 2022-12-21 08:21 | PCM.CONS.R ---
Assessment & Plan Assessment/Plan (1) ESRD (end stage renal disease): PLAN: Plan Impression/Plan: The patient is a 61-year-old man with past history of ESRD, type 2 diabetes mellitus, CAD, hypertension, nonischemic cardiomyopathy, RAQUEL, and hyperlipidemia. The patient was recently admitted to the hospital between 12/15/2022 until 12/19/2022 with volume overload/pulmonary edema and thrombosed dialysis AV access. The patient was treated with hemodialysis and ultrafiltration after tunneled dialysis catheter was placed. He was discharged to [facility] on 12/19/2022, but he returns on 12/21/2022 with nausea, anxiety, and leukocytosis. Nephrology is following for ESRD/dialysis management. ESRD. The patient usually dialyzes at [facility] on Nxstage machine 5 days/week. He was last dialyzed on 12/19/2022. There is no need for immediate dialysis today. We will arrange for dialysis tomorrow. We will keep him on MWF schedule while he is in the hospital. Anemia in chronic kidney disease. Hemoglobin is 9.5 g/dL today. We will see if whether he is getting SUNNY at [facility] dialysis center. Continue to trend hemoglobin. CKD?mineral bone disease. Continue cinacalcet. The patient is currently not on phosphorus binders. We will monitor calcium and phosphorus levels. PTH will be rechecked as outpatient once he returns to dialysis center. Chronic hypotension. The patient is on midodrine 10 mg 3 times daily. We will monitor BP, particularly on dialysis. Nephrology plan discussed with Dr. Akins. HPI Consult Data Date of Consult: 12/22/22 HPI Narrative Reason for Consultation: ESRD HPI Narrative: The patient is a 61-year-old man with past history of ESRD, type 2 diabetes mellitus, CAD, hypertension, nonischemic cardiomyopathy, RAQUEL, and hyperlipidemia. The patient was just admitted to the hospital between 12/15/2022 until 12/19/2022 with acute hypoxic respiratory failure due to pulmonary edema. The patient also had thrombosed dialysis AV access, and a tunneled dialysis catheter was placed for dialysis instead. The patient returns to the hospital today on 12/21/2022 with confusion/anxiety. The patient also had nausea although there is no abdominal pain. The patient was also found to have leukocytosis. He was admitted for treatment of intractable nausea and to evaluate for causes of leukocytosis. Nephrology asked to see the patient because of need for dialysis. The patient was not very communicative with me when I visited. Otherwise, he denies chest pain, shortness of breath, or nausea. There is chronic lower extremity edema which has not increased in severity subjectively. [facility] Medical History Ambulates with cane Anemia Anemia in chronic kidney disease Atherosclerosis of douglas coronary artery of douglas heart without angina pectoris Benign prostatic hyperplasia Chronic diastolic (congestive) heart failure Chronic indwelling Barnes catheter Diabetes mellitus, type II End-stage renal disease on hemodialysis Essential hypertension Barnes catheter in place Gout History of chronic renal failure Hydronephrosis concurrent with and due to calculi of kidney and ureter Hyperlipidemia ICD (implantable cardioverter-defibrillator) in place Iron deficiency anemia Left bundle branch block (LBBB) Morbid obesity Non-ischemic cardiomyopathy Non-smoker Nonsustained ventricular tachycardia Open wound RAQUEL (obstructive sleep apnea) Right foot drop Secondary hyperparathyroidism (of renal origin) Sepsis Sleep apnea Venous ulcer of left lower extremity without varicose veins Walker as ambulation aid Wears glasses Medical History unable to obtain Home Medications allopurinol 300 mg tablet 150 mg PO DAILY GOUT 01/27/16 [History Last Taken 12/15/22] latanoprost 0.005 % eye drops 1 drp EACH EYE QHS GLAUCOMA 12/23/18 [History Last Taken 12/14/22] tamsulosin 0.4 mg capsule 0.4 mg PO QHS PROSTATE 06/21/19 [History Last Taken 12/14/22] acetaminophen 325 mg tablet (Tylenol) 650 mg PO Q4H PRN Pain 08/06/22 [History Last Taken 08/04/22] ammonium lactate 12 % lotion 1 applic topical BID SEVERE DRY SKIN 08/06/22 [History Last Taken 12/15/22] aspirin 81 mg tablet,delayed release 81 mg PO DAILY HEART HEALTH 08/06/22 [History Last Taken 12/15/22] atorvastatin 80 mg tablet 80 mg PO QHS CHOLESTEROL 08/06/22 [History Last Taken 12/14/22] cinacalcet 60 mg tablet 30 mg PO MOWEFR SUPPLEMENT 08/06/22 [History Last Taken 12/15/22] vitamin B complex and vitamin C no.20-folic acid 1 mg capsule 1 cap PO DAILY SUPPLEMENT 08/06/22 [History Last Taken 12/15/22] midodrine 10 mg tablet 10 mg PO TID Check with primary doctor 10/08/22 [History Last Taken 12/15/22] furosemide 40 mg tablet 40 mg PO DAILY EDEMA 12/15/22 [History Last Taken 12/15/22] guaifenesin 1,200 mg tablet, extended release 12 hr 1,200 mg PO BID CONGESTION 12/15/22 [History Last Taken 12/15/22] magnesium hydroxide 400 mg/5 mL oral suspension (Milk of Magnesia) 30 ml PO DAILY PRN Constipation 12/21/22 [History Last Taken Unknown] Allergy/AdvReac Type Severity Reaction Status Date / Time aluminum Allergy PT UNSURE Verified 12/15/22 09:18 OF REACTION Family History Father Hypertension Heart disease Diabetes Mother Diabetes Chronic kidney disease Hypertension Anemia Surgical History H/O skin graft History of tonsillectomy and adenoidectomy Hx of appendectomy Hx of tonsillectomy Presence of biventricular implantable cardioverter-defibrillator (ICD) (05/14/11) Social History household members: none Smoking Status: Never smoker alcohol intake: never substance use type: does not use caffeine: Yes ROS ROS Narrative 05/26 ROS was done and is otherwise noncontributory. Physical Exam Narrative General: Awake, alert, oriented to person and place. HEENT: Normocephalic, atraumatic, EOMI, PERRLA, mildly dry MM, hearing is intact. Lungs: Diminished breath sounds at bases bilaterally. Heart: Tachycardic S1, S2 with regular rhythm; no gallop, rub or murmur audible. Abdomen: Soft, obese, no pain on palpation, no rebound or guarding, normal bowel sound. Extremities: No cyanosis, no clubbing, chronic BL LE venous stasis skin changes. Neurological: Patient awake, alert, oriented as noted, cognitive function seems to be intact with appropriate orientation; pupils equally reactive to light and accommodation, cranial nerves grossly normal, moving all 4 extremities, no focal deficits, strength moderately to severely globally decreased. Psychiatric: Affect appears fatigued, appears tachypneic but unclear etiology, no acute evidence of depressive or anxiety feelings. Lab / Micro Data Result Diagrams: 12/22/22 09:50 12/21/22 09:05 Labs: Laboratory Results - last 24 hr 12/21/22 03:00: Sodium 137, Potassium 4.9, Chloride 103, Carbon Dioxide 19.0 L, Anion Gap 15, BUN 54 H, Creatinine 6.76 H, Estim Creat Clear Calc 11.91, Est GFR (MDRD) Af Amer 11 L, Est GFR (MDRD) Non-Af 9 L, BUN/Creatinine Ratio 8.0 L, Glucose 142 H, Calcium 8.8 12/21/22 03:00: WBC 14.0 H, RBC 3.48 L, Hgb 9.6 L, Hct 31.5 L, MCV 90.5, MCH 27.6, MCHC 30.5 L, RDW Std Deviation 64.2 H, RDW Coeff of Jeffrey 19.6 H, Plt Count 189, MPV 9.8, Immature Gran % (Auto) 0.500, Neut % (Auto) 89.2 H, Lymph % (Auto) 4.4 L, Cotton % (Auto) 5.4, Eos % (Auto) 0.1, Baso % (Auto) 0.4, Absolute Neuts (auto) 12.5 H, Absolute Lymphs (auto) 0.61 L, Nucleated RBC % 0 12/21/22 03:00: ESR 86 H 12/21/22 03:00: Phosphorus 4.4, Magnesium 1.5 L, C-React Prot Ext Range 59.10 H 12/21/22 03:00: Total Bilirubin 1.40 H, Direct Bilirubin 0.41 H, AST 120 H, ALT 41, Alkaline Phosphatase 108, Total Protein 7.6, Albumin 2.6 L, Globulin 5.0 H, Lipase 53 12/21/22 04:15: D-Dimer Quant (PE/DVT) Cancelled 12/21/22 04:15: Procalcitonin 2.86 H 12/21/22 04:15: COVID-19 (KELLEN) Not Detected 12/21/22 04:15: Lactic Acid 2.8 H* 12/21/22 05:35: D-Dimer Quant (PE/DVT) Cancelled 12/21/22 06:10: D-Dimer Quant (PE/DVT) 8.94 H* 12/21/22 06:10: WBC 18.7 H, RBC 3.43 L, Hgb 9.5 L, Hct 31.9 L, MCV 93.0, MCH 27.7, MCHC 29.8 L, RDW Std Deviation 66.7 H, RDW Coeff of Jeffrey 19.9 H, Plt Count 206, MPV 10.1, Immature Gran % (Auto) 0.500, Neut % (Auto) 90.8 H, Lymph % (Auto) 3.2 L, Cotton % (Auto) 5.2, Eos % (Auto) 0.1, Baso % (Auto) 0.2, Absolute Neuts (auto) 16.9 H, Absolute Lymphs (auto) 0.60 L, Nucleated RBC % 0 12/21/22 06:26: POC Glucose 136 H Radiology Impression Chest X-Ray 12/21/22 03:10 IMPRESSION: No radiographic evidence of acute cardiopulmonary disease. Electronically Signed: Mati Zaldivar MD at 3:30 EDT ,
[2022-12-21] MEDS: 0.9% Saline Lock 10 ML Syringe IV ×3 (08:23→18:34)
[2022-12-21 09:05] LABS: Anisocytosis 1+
[2022-12-21 09:36] LABS: Lactic Acid 1.9 mmol/L (0.4-1.9)
[2022-12-21] MEDS: Aspirin E.C. 81 MG Tablet PO (09:43)
[2022-12-21] MEDS: Allopurinol 300 MG Tablet 150 MG PO (09:43)
[2022-12-21] MEDS: guaiFENesin 1,200 MG Tablet 1200 MG PO (09:45)
[2022-12-21 09:46] LABS: ALB/GLOB Ratio 0.5 RATIO (0.9-2.4); AST(SGOT) 144 U/L (15-37); Alanine Aminotransfer ALT/SGPT 48 U/L (16-61); Albumin, Serum 2.3 g/dL (3.2-5.0); Alkaline Phosphatase 91 U/L (45-117); Anion Gap 15 (5-15); BUN 58 mg/dL (7-18); BUN/Creat Ratio 7.9 RATIO (10-20); Calcium,Total 8.7 mg/dL (8.5-10.1); Chloride 101 mmol/L (98-107); EST Glomerular Filtration Rate 8 mL/min (>60); Est Glom Filt Rate - Afr Amer 10 mL/min (>60); Estimated Creatinine Clearance 11.03 ml/min; Globulin 4.6 g/dL (2.2-4.2); Glucose 136 mg/dL (74-106); Potassium 4.7 mmol/L (3.5-5.1); Protein, Total 6.9 g/dL (6.4-8.2); Sodium Level 135 mmol/L (136-145); Troponin-I HS 130 pg/mL (3.0-78.0)
[2022-12-21] MEDS: Furosemide 40 MG Tablet PO (09:51)
[2022-12-21] MEDS: Heparin Injection (Vial) 5,000 UNIT/ML VIAL 5000 UNIT SC ×2 (09:51→21:30)
--- NOTE | 2022-12-21 10:15 | PCM.CONS.U ---
Assessment & Plan Assessment/Plan (1) Urethral stricture: PLAN: Unable to place a catheter at the bedside due to some type of urethral stricture or bladder neck obstruction for now would recommend observation to see if he can urinate okay check postvoid residuals. Very high likelihood the patient is can end up pulling out his catheter if catheter was put in anyways. We will see if he can urinate on his own and empty his bladder adequately. Patient is also on chronic dialysis. Call with questions HPI Consult Data Date of Consult: 12/21/22 HPI Narrative Reason for Consultation: Urethral stricture HPI Narrative: JUVENCIO QUINTERO, is a 61 M who presents to the hospital was admitted for tachycardia he has end-stage renal disease and chronic kidney disease history of kidney stones bilateral staghorn's stones and he is on dialysis also history of chronic ulcer of his leg bilateral edema history of pulmonary edema and hypoxia currently on oxygen. He has morbid obesity and type 2 diabetes with hypertension. He is a chronic senior care. This morning I came to see the patient because he had his catheter removed by the emergency room and they were not able to put the catheter back in I tried to place a 16 [place] catheter but the patient was very combative yelling screaming and was not able to place a catheter at the bedside. For now we can just observe and see if he is able to urinate okay as long as his postvoid residuals are not elevated probably would just go with observation very likely this patient is combative is can just pull his catheter out as he is already pulling out all his IVs. [facility] Medical History Ambulates with cane Anemia Anemia in chronic kidney disease Atherosclerosis of ham[place] coronary artery of [place] heart without angina pectoris Benign prostatic hyperplasia Chronic diastolic (congestive) heart failure Chronic indwelling Barnes catheter Diabetes mellitus, type II End-stage renal disease on hemodialysis Essential hypertension Barnes catheter in place Gout History of chronic renal failure Hydronephrosis concurrent with and due to calculi of kidney and ureter Hyperlipidemia ICD (implantable cardioverter-defibrillator) in place Iron deficiency anemia Left bundle branch block (LBBB) Morbid obesity Non-ischemic cardiomyopathy Non-smoker Nonsustained ventricular tachycardia Open wound RAQUEL (obstructive sleep apnea) Right foot drop Secondary hyperparathyroidism (of renal origin) Sepsis Sleep apnea Venous ulcer of left lower extremity without varicose veins Walker as ambulation aid Wears glasses Medical History unable to obtain Home Medications allopurinol 300 mg tablet 150 mg PO DAILY GOUT 01/27/16 [History Last Taken 12/15/22] latanoprost 0.005 % eye drops 1 drp EACH EYE QHS GLAUCOMA 12/23/18 [History Last Taken 12/14/22] tamsulosin 0.4 mg capsule 0.4 mg PO QHS PROSTATE 06/21/19 [History Last Taken 12/14/22] acetaminophen 325 mg tablet (Tylenol) 650 mg PO Q4H PRN Pain 08/06/22 [History Last Taken 08/04/22] ammonium lactate 12 % lotion 1 applic topical BID SEVERE DRY SKIN 08/06/22 [History Last Taken 12/15/22] aspirin 81 mg tablet,delayed release 81 mg PO DAILY HEART HEALTH 08/06/22 [History Last Taken 12/15/22] atorvastatin 80 mg tablet 80 mg PO QHS CHOLESTEROL 08/06/22 [History Last Taken 12/14/22] cinacalcet 60 mg tablet 30 mg PO MOWEFR SUPPLEMENT 08/06/22 [History Last Taken 12/15/22] vitamin B complex and vitamin C no.20-folic acid 1 mg capsule 1 cap PO DAILY SUPPLEMENT 08/06/22 [History Last Taken 12/15/22] midodrine 10 mg tablet 10 mg PO TID Check with primary doctor 10/08/22 [History Last Taken 12/15/22] furosemide 40 mg tablet 40 mg PO DAILY EDEMA 12/15/22 [History Last Taken 12/15/22] guaifenesin 1,200 mg tablet, extended release 12 hr 1,200 mg PO BID CONGESTION 12/15/22 [History Last Taken 12/15/22] magnesium hydroxide 400 mg/5 mL oral suspension (Milk of Magnesia) 30 ml PO DAILY PRN Constipation 12/21/22 [History Last Taken Unknown] Allergy/AdvReac Type Severity Reaction Status Date / Time aluminum Allergy PT UNSURE Verified 12/15/22 09:18 OF REACTION Family History Father Hypertension Heart disease Diabetes Mother Diabetes Chronic kidney disease Hypertension Anemia Surgical History H/O skin graft History of tonsillectomy and adenoidectomy Hx of appendectomy Hx of tonsillectomy Presence of biventricular implantable cardioverter-defibrillator (ICD) (05/14/11) Social History household members: none Smoking Status: Never smoker alcohol intake: never substance use type: does not use caffeine: Yes Physical Exam Narrative Noncooperative combative confused patient. Const Negative for oriented x3, no apparent distress or well nourished General Appearance: Negative for cooperative or well developed Neck no lymphadenopathy Resp normal respiratory effort Narrative: Penis has a hypospadias. Epididymis: Right: Normal and Left: Normal Back/Spine no CVA tenderness Psych Mood & Affect: anxious Lab / Micro Data Result Diagrams: 12/21/22 06:10 12/21/22 09:05 Labs: Laboratory Results - last 24 hr 12/21/22 03:00: Sodium 137, Potassium 4.9, Chloride 103, Carbon Dioxide 19.0 L, Anion Gap 15, BUN 54 H, Creatinine 6.76 H, Estim Creat Clear Calc 11.91, Est GFR (MDRD) Af Amer 11 L, Est GFR (MDRD) Non-Af 9 L, BUN/Creatinine Ratio 8.0 L, Glucose 142 H, Calcium 8.8 12/21/22 03:00: WBC 14.0 H, RBC 3.48 L, Hgb 9.6 L, Hct 31.5 L, MCV 90.5, MCH 27.6, MCHC 30.5 L, RDW Std Deviation 64.2 H, RDW Coeff of Jeffrey 19.6 H, Plt Count 189, MPV 9.8, Immature Gran % (Auto) 0.500, Neut % (Auto) 89.2 H, Lymph % (Auto) 4.4 L, [place] % (Auto) 5.4, Eos % (Auto) 0.1, Baso % (Auto) 0.4, Absolute Neuts (auto) 12.5 H, Absolute Lymphs (auto) 0.61 L, Nucleated RBC % 0 12/21/22 03:00: ESR 86 H 12/21/22 03:00: Phosphorus 4.4, Magnesium 1.5 L, C-React Prot Ext Range 59.10 H 12/21/22 03:00: Total Bilirubin 1.40 H, Direct Bilirubin 0.41 H, AST 120 H, ALT 41, Alkaline Phosphatase 108, Total Protein 7.6, Albumin 2.6 L, Globulin 5.0 H, Lipase 53 12/21/22 04:15: D-Dimer Quant (PE/DVT) Cancelled 12/21/22 04:15: Procalcitonin 2.86 H 12/21/22 04:15: COVID-19 (KELLEN) Not Detected 12/21/22 04:15: Lactic Acid 2.8 H* 12/21/22 05:35: D-Dimer Quant (PE/DVT) Cancelled 12/21/22 06:10: D-Dimer Quant (PE/DVT) 8.94 H* 12/21/22 06:10: WBC 18.7 H, RBC 3.43 L, Hgb 9.5 L, Hct 31.9 L, MCV 93.0, MCH 27.7, MCHC 29.8 L, RDW Std Deviation 66.7 H, RDW Coeff of Jeffrey 19.9 H, Plt Count 206, MPV 10.1, Immature Gran % (Auto) 0.500, Neut % (Auto) 90.8 H, Lymph % (Auto) 3.2 L, [place] % (Auto) 5.2, Eos % (Auto) 0.1, Baso % (Auto) 0.2, Absolute Neuts (auto) 16.9 H, Absolute Lymphs (auto) 0.60 L, Nucleated RBC % 0, Anisocytosis 1+ 12/21/22 06:26: POC Glucose 136 H 12/21/22 09:05: Sodium 135 L, Potassium 4.7, Chloride 101, Carbon Dioxide 19.0 L, Anion Gap 15, BUN 58 H, Creatinine 7.30 H, Estim Creat Clear Calc 11.03, Est GFR (MDRD) Af Amer 10 L, Est GFR (MDRD) Non-Af 8 L, BUN/Creatinine Ratio 7.9 L, Glucose 136 H, Calcium 8.7, Total Bilirubin 1.30 H, AST 144 H, ALT 48, Alkaline Phosphatase 91, Troponin I High Sens 130 H*, Total Protein 6.9, Albumin 2.3 L, Globulin 4.6 H, Albumin/Globulin Ratio 0.5 L 05/07/23 09:05: Lactic Acid 1.9 Radiology Impression Chest X-Ray 12/21/22 03:10 IMPRESSION: No radiographic evidence of acute cardiopulmonary disease. Electronically Signed: Mati Zaldivar MD at 3:30 EDT , Chest CTA 12/21/22 06:53 IMPRESSION: No demonstrated pulmonary embolism or arterial dissection. Bilateral pleural effusions associated with dependent lower lobe consolidation. Atherosclerosis. Cardiomegaly. Electronically Signed: Ninoska Adames MD at 8:34 EDT ,
[2022-12-21] MEDS: Midodrine HCl 5 MG Tablet 10 MG PO (12:04)
[2022-12-21 13:36] LABS: Bedside Glucose 152 mg/dL (74-106)
[2022-12-21] MEDS: LORazepam 2 MG/ML Syringe 1 MG IV ×2 (14:15→18:34)
--- NOTE | 2022-12-21 18:51 | PCM.RX.CS ---
Consult Type of Consult: New start Suspected Infection: Bacteremia Labs: Sodium 135 mmol/L (136-145) L 12/21/22 09:05 Potassium 4.7 mmol/L (3.5-5.1) 12/21/22 09:05 Chloride 101 mmol/L (98-107) 12/21/22 09:05 Carbon Dioxide 19.0 mmol/L (21.0-32.0) L 12/21/22 09:05 Anion Gap 15 (5-15) 12/21/22 09:05 BUN 58 mg/dL (7-18) H 12/21/22 09:05 Creatinine 7.30 mg/dL (0.70-1.30) H 12/21/22 09:05 Est GFR (MDRD) Af Amer 10 mL/min (>60) L 12/21/22 09:05 Est GFR (MDRD) Non-Af 8 mL/min (>60) L 12/21/22 09:05 BUN/Creatinine Ratio 7.9 RATIO (10-20) L 12/21/22 09:05 Glucose 136 mg/dL (74-106) H 12/21/22 09:05 Microbiology: Microbiology 12/21/22 04:15 Mucosa - Nasopharyngeal Respiratory Panel (PCR) - Final Rhinovirus Goal Trough: 15-20 mcg/mL Pharmacy Plan for Drug Dosing: NEW START IV VANCOMYCIN Consulting Physician: DR. ZAMORANO Indication: Goal Trough: 15-20 SrCr: 7.30 CrCl: Comments: POSSIBLE MWF DIALYSIS (NEEDS CONFIRMED) Vancomycin Dose: 2000MG X1 Pending Level: Pharmacy Service will continue to monitor and adjust dosing as required.
--- NOTE | 2022-12-21 21:10 | CPS ---
Patient remains combative and agitated. He will not tolerate wearing CPAP at this time; He is often noncompliant with his own machine at home and does not typically tolerate our machine when he is here. Patient currently does not have a machine at bedside but remains on oxygen via nasal cannula at this time.
--- NOTE | 2022-12-21 23:25 | NURSING ---
Pt unable to hold still during vital signs, unable to obtain an accurate blood pressure
[2022-12-22] VITALS (21 sets, daily range): BP systolic 100–149; BP diastolic 62–102; PULSE 100–115; RESP 12–36; TEMP 36.2–36.8; O2SAT 98–100; BMI 35.6
[2022-12-22 00:56] LABS: Bedside Glucose 115 mg/dL (74-106)
[2022-12-22 03:36] LABS: Bedside Glucose 107 mg/dL (74-106)
--- NOTE | 2022-12-22 05:50 | NURSING ---
Patient had a post residual of 77 mL after incont episode of urine.
--- NOTE | 2022-12-22 08:13 | PN.HOSP_ITS ---
Reason for Visit Reason for Visit: Diagnoses Unspecified urethral stricture, male, unspecified site (12/21/22) Tachycardia, unspecified (12/21/22) Subjective Subjective Pulled out tunneled dialysis catheter this a.m., had a sitter previously due to concerns for pulling out lines but this was discontinued this morning and he pulled out tunneled catheter shortly after. When discussing with patient he reports he knows it was stupid and he did it just because now realizes that was a bad idea. Objective Data Objective Data Vital Signs: Vital Signs Temp Pulse Resp BP Pulse Ox O2 Del Method O2 Flow Rate 97.8 F 105 H 18 118/89 H 100 Nasal Cannula 2 12/22/22 02:46 12/22/22 02:46 12/22/22 02:46 12/22/22 02:46 12/22/22 02:46 12/22/22 02:56 12/22/22 02:56 Oxygen Flow Rate (L/min) 2 Oxygen Delivery Method Nasal Cannula Weight: 116 kg Body Mass Index (BMI) 35.6 Intake & Output: Intake and Output for Last 24 Hours 12/20/22 12/21/22 12/22/22 23:59 23:59 23:59 Intake Total 1591.50 / 1591.50 50 / 50 Output Total 0 / 0 Balance 1591.50 / 1591.50 50 / 50 Lab / Micro Data Result Diagrams: 12/21/22 06:10 12/21/22 09:05 Labs: Laboratory Results - last 24 hr 12/21/22 06:10: WBC 18.7 H, RBC 3.43 L, Hgb 9.5 L, Hct 31.9 L, MCV 93.0, MCH 27.7, MCHC 29.8 L, RDW Std Deviation 66.7 H, RDW Coeff of Jeffrey 19.9 H, Plt Count 206, MPV 10.1, Immature Gran % (Auto) 0.500, Neut % (Auto) 90.8 H, Lymph % (Auto) 3.2 L, [place] % (Auto) 5.2, Eos % (Auto) 0.1, Baso % (Auto) 0.2, Absolute Neuts (auto) 16.9 H, Absolute Lymphs (auto) 0.60 L, Nucleated RBC % 0, Anisocytosis 1+ 12/21/22 09:05: Sodium 135 L, Potassium 4.7, Chloride 101, Carbon Dioxide 19.0 L , Anion Gap 15, BUN 58 H, Creatinine 7.30 H, Estim Creat Clear Calc 11.03, Est GFR (MDRD) Af Amer 10 L, Est GFR (MDRD) Non-Af 8 L, BUN/Creatinine Ratio 7.9 L, Glucose 136 H, Calcium 8.7, Total Bilirubin 1.30 H, AST 144 H, ALT 48, Alkaline Phosphatase 91, Troponin I High Sens 130 H*, Total Protein 6.9, Albumin 2.3 L, Globulin 4.6 H, Albumin/Globulin Ratio 0.5 L 12/21/22 09:05: Lactic Acid 1.9 12/21/22 13:12: POC Glucose 152 H 12/21/22 21:32: POC Glucose 115 H 12/22/22 03:01: POC Glucose 107 H Micro: Microbiology 12/21/22 05:35 Blood Culture (Wb) - Anticubital Left Blood Culture - Preliminary 12/21/22 04:15 Mucosa - Nasopharyngeal Respiratory Panel (PCR) - Final Rhinovirus Radiography Diagnostic Testing: Radiology Impression Chest CTA 12/21/22 06:53 IMPRESSION: No demonstrated pulmonary embolism or arterial dissection. Bilateral pleural effusions associated with dependent lower lobe consolidation. Atherosclerosis. Cardiomegaly. Electronically Signed: Ninoska Adames MD at 8:34 EDT Reading Location ID and State: [facility] / [place] Tel , Service support , Physical Exam Narrative General: Alert, oriented, no apparent distress HEENT: Atraumatic, normocephalic Eyes: Anicteric, normal conjunctiva, extraocular movements grossly intact Neck: Supple Respiratory: No wheezes or rhonchi Cardiovascular: Regular rate and rhythm GI: Soft, nontender Extremities: No edema, cool extremities Musculoskeletal: Moving all extremities Neuro: No overt focal neurological deficits Skin: Chronic lower extremity changes Psych: Cooperative with me but did pull out tunneled dialysis catheter Assessment & Plan Assessment/Plan (1) Tachycardia: PLAN: Plan #Tachycardia -Somewhat better today, still unclear etiology -Troponin and D-dimer were elevated on admission however may be due to his end- stage renal disease and comorbidities -CTA with no PE or dissection, bilateral pleural effusions with associated dependent lower lobe consolidation -Did have elevated CRP 59 but it is down from 67 on 12/08 -Pro-Alvin was also elevated 2.8 -Is on Zosyn and vancomycin -Cultures pending -Was rhinovirus positive which may be culprit for no bacterial infection identified #ESRD on HD MWF -Had tunneled dialysis catheter placed 12/17/2022, pulled it out this a.m. -Fistulogram 12/17 showed his fistula clotted -Still has need for dialysis, surgery on-call consulted as he will need long- term access -Nephro consult #Urethral stricture -Was unable to replace catheter at bedside with urology -They recommended monitoring postvoid and attempting voiding trials especially as he is likely to pull out catheter #Type 2 diabetes mellitus -Glucose checks and sliding scale insulin #Chronic Combined CHF/Nonischemic Cardiomyopathy/NSVT s/p AICD #DVT ppx: Heparin subcu Mercy Soto MD Time spent in the patient's overall evaluation,decision-making process, review of diagnostic data, adjustment of management, discussion with other providers, nursing nursing and ancillary staff involved in patient's care documentation, 30 minutes Charges/Coding Visit Charges Inpatient E&M: 90540 Subs Hosp L2
--- NOTE | 2022-12-22 08:17 | NURSING ---
This RN with Nightshift RN went to pt bedside to do shift handoff. Pt was laying in bed with blood on gown and had pulled out dialysis catheter. Pressure was applied at 0730 and held until hemostasis at 0750. Dr. eagle was notified and came to bedside.
--- NOTE | 2022-12-22 08:58 | CASEMGMT ---
Discharge Planning Updates sent to [facility] via [email or web address]. Coreen [place]
--- NOTE | 2022-12-22 10:00 | AVDS_ITS ---
Reason For Study: Assess if viable RIGHT Inflow artery, 145.1/111.1 cm/sec. Inflow artery, 451.2 ml/min. Prox anastomosis, 223.4/165.4 cm/sec. Prox anastomosis, 554.2 ml/min. Prox graft, 140.3/87.2 cm/sec. Prox graft, 843 ml/min. Mid graft, 123.5/93.4 cm/sec. Mid graft, 3002 ml/min. Distal graft, 150/116.2 cm/sec. Distal graft, 3199 ml/min. Outflow vein, 20.5/12.9 cm/sec. Outflow vein, 68.5 ml/min. Fistula is partially thrombosed throughout s/p fistulagram 12/17/22. Outflow vein is partially compressible with minimal flow noted. Technically difficult study due to patient unable to cooperate. VL/AV Fistula/Dialysis Graft Scan Interpretation Summary Widely patent right forearm radial artery and radial artery to cephalic vein ar teriovenous fistula anastomosis Residual thrombus is identified in the right mid fistula and outflow component of the fistula. Notably diminished flow in the outflow vein with persistent thrombosis. Examination was noted to be technically difficult Consideration should be for tertiary level attempt at reintervention Ordering Physician: Mercy Soto Referring Physician: Janene Griffin Performed By: Megha Velazquez RVT
[2022-12-22 10:14] LABS: Absolute Lymphocyte Count 1.42 X10^3/uL (0.83-4.51); Basophil# 0.07 X10^3/uL; Basophil% 0.4 % (0-1); Eosinophil# 0.04 X10^3/uL; Eosinophils% 0.2 % (0-5); Hematocrit 32.8 % (40-54); Hemoglobin 10.3 g/dL (13.0-16.5); Lymphocyte # 1.42 X10^3/ul (0.83-4.51); Lymphocyte % 7.5 % (19-41); Mean Corp Hgb Conc 31.4 g/dL (32-36); Mean Corpuscular Hgb 28.2 pg (27.0-32.0); Mean Corpuscular Volume 89.9 fL (80-94); Monocyte# 1.12 X10^3/uL; NRBC Flagged by Analyzer 0 % (0-5); Neutrophil # 16.02 X10^3/uL (2.7-7.7); Neutrophil % 85.2 % (47-70); Platelet Count 165 K/mm3 (150-450); RBC Distribution Width CV 19.7 % (11.6-14.6); RBC Distribution Width SD 64.2 fl (35.1-43.9); Red Blood Count 3.65 M/mm3 (4.6-6.2); White Blood Count 18.8 K/mm3 (4.4-11.0)
--- NOTE | 2022-12-22 10:32 | PN.RENAL_ITS ---
Subjective Subjective Following for ESRD Patient resting quietly. He is alert to name and follows commands but does have some confused behavior. Patient has sitter in his room. Earlier this morning patient pulled out tunneled HD catheter. Objective Data Objective Data Vital Signs: Vital Signs Temp Pulse Resp BP Pulse Ox O2 Del Method O2 Flow Rate 97.8 F 105 H 18 118/89 H 100 Nasal Cannula 2 12/22/22 02:46 12/22/22 02:46 12/22/22 02:46 12/22/22 02:46 12/22/22 02:46 12/22/22 02:56 12/22/22 02:56 Oxygen Flow Rate (L/min) 2 Oxygen Delivery Method Nasal Cannula Weight: 116 kg Body Mass Index (BMI) 35.6 Intake & Output: Intake and Output for Last 24 Hours 12/20/22 12/21/22 12/22/22 23:59 23:59 23:59 Intake Total 1591.50 / 1591.50 50 / 50 Output Total 0 / 0 Balance 1591.50 / 1591.50 50 / 50 Lab / Micro Data Result Diagrams: 12/22/22 09:50 12/22/22 09:50 Labs: Laboratory Results - last 24 hr 12/21/22 13:12: POC Glucose 152 H 12/21/22 21:32: POC Glucose 115 H 12/22/22 03:01: POC Glucose 107 H 12/22/22 09:50: WBC 18.8 H, RBC 3.65 L, Hgb 10.3 L, Hct 32.8 L, MCV 89.9, MCH 28.2, MCHC 31.4 L D, RDW Std Deviation 64.2 H, RDW Coeff of Jeffrey 19.7 H, Plt Count 165, MPV 10.0, Immature Gran % (Auto) 0.700, Neut % (Auto) 85.2 H, Lymph % (Auto) 7.5 L, [place] % (Auto) 6.0, Eos % (Auto) 0.2, Baso % (Auto) 0.4, Absolute Neuts (auto) 16.0 H, Absolute Lymphs (auto) 1.42, Nucleated RBC % 0 Micro: Microbiology 12/21/22 05:35 Blood Culture (Wb) - Anticubital Left Bacteria Detection (PCR) - Final Staphylococcus epidermidis mecA Resistance Marker 12/21/22 05:35 Blood Culture (Wb) - Anticubital Left Blood Culture - Preliminary 12/21/22 04:15 Mucosa - Nasopharyngeal Respiratory Panel (PCR) - Final Rhinovirus Physical Exam Narrative Alert and oriented, no apparent distress. Follows commands. S1, S2, RRR Lung sounds diminished with faint rhonchi; audible rhonchi Abdomen soft, nontender, positive bowel sounds Nonpitting edema noted bilateral lower legs and feet Right forearm AV fistula positive thrill and bruit with scattered ecchymosis noted dressing C/D/I to right chest where tunneled HD catheter had been Assessment & Plan Assessment/Plan (1) ESRD (end stage renal disease): (2) Urethral stricture: (3) Tachycardia: (4) Anemia due to chronic kidney disease: PLAN: Plan - ESRD on HD Thursday, Thursday, Thursday, Thursday schedule at [facility]. Last dialysis December 19. Last week patient was noted to have thrombosed AV fistula and underwent placement right chest tunneled HD catheter (12/16) and fistulogram (12/17) per Dr. Moya. Patient had multiple ballooning of AVF and AVF now open but may not be strong enough for dialysis. This am patient pulled out Tunneled HD catheter. We will have HD RN attempt to cannulate AVF for HD today on 2K bath (K+ 5.6) and attempt fluid removal as patient/blood pressure tolerates. Patient is agitated, he has sitter in room therefore may need something for anxiety pre- HD today. -Tachycardia; heart rates have improved. Patient is not on any beta-blockers or bp meds. Blood pressures acceptable on Midodrine 10mg tid. -Anemia of chronic disease; hgb 10.3. We will monitor hemoglobin trends -Leukocytosis; preliminary BC from 12/21 stap epi; patient is on IV antibiotics Zosyn and Vanco. -Urethral stricture; patient did have Barnes catheter but this was removed in the emergency room. Patient was seen by urology, unable to place catheter at bedsid e due to urethral stricture. At this point observing and checking postvoid residuals. -Discussed plan with Dr. Soto
[2022-12-22 10:35] LABS: Magnesium 2.8 mg/dL (1.6-2.6)
[2022-12-22] MEDS: guaiFENesin 1,200 MG Tablet 1200 MG PO (10:40)
[2022-12-22] MEDS: Allopurinol 300 MG Tablet 150 MG PO (10:40)
[2022-12-22] MEDS: Cinacalcet HCl 30 MG Tablet PO (10:41)
[2022-12-22] MEDS: Ammonium Lactate 225 gm Bottle 1 APPLIC TOPICAL (10:41)
[2022-12-22] MEDS: Furosemide 40 MG Tablet PO (10:41)
[2022-12-22] MEDS: LORazepam 2 MG/ML Syringe 0.5 MG IV (10:42)
[2022-12-22 10:45] LABS: ALB/GLOB Ratio 0.5 RATIO (0.9-2.4); AST(SGOT) 326 U/L (15-37); Alanine Aminotransfer ALT/SGPT 129 U/L (16-61); Albumin, Serum 2.5 g/dL (3.2-5.0); Alkaline Phosphatase 99 U/L (45-117); Anion Gap 7 (5-15); BUN 74 mg/dL (7-18); BUN/Creat Ratio 8.7 RATIO (10-20); Calcium,Total 9.3 mg/dL (8.5-10.1); Chloride 104 mmol/L (98-107); Creatinine, Serum 8.49 mg/dL (0.70-1.30); EST Glomerular Filtration Rate 7 mL/min (>60); Est Glom Filt Rate - Afr Amer 8 mL/min (>60); Estimated Creatinine Clearance 9.49 ml/min; Globulin 5.2 g/dL (2.2-4.2); Glucose 119 mg/dL (74-106); Potassium 5.6 mmol/L (3.5-5.1); Protein, Total 7.7 g/dL (6.4-8.2); Sodium Level 133 mmol/L (136-145)
--- NOTE | 2022-12-22 11:07 | CASEMGMT ---
Social Work LW/Healthcare POA forms both scanned into summary tab of virgen, Manuel More is pt's healthcare POA. ROSALIE Munoz
--- NOTE | 2022-12-22 12:17 | CASEMGMT ---
Tertiary facilities in-network with patient's insurance: [facility], [facility], [facility], , [facility]
[2022-12-22 13:26] LABS: Allen Test Positive; Base Excess -5 mmol/L (-2 to +2); Bicarbonate 21.7 mmol/L (22-26); Blood Gas Specimen Type ART; O2 Delivery Device Cannula; PO2 30 mmHG (75-100); SITE R Radial; SO2 51 % (95-99); Total Carbon Dioxide 23 mmol/L; pCO2 42.3 mmHg (35-45); pH 7.32 (7.35-7.45)
--- NOTE | 2022-12-22 13:50 | RAD_ITS ---
STUDY: X-RAY CHEST REASON FOR EXAM: Male, 61 years old. Hypoxia TECHNIQUE: Single AP portable view of the chest. COMPARISON: Comparison is made with prior study dated December 21, 2022. FINDINGS: EKG electrodes are seen. The right-sided temporary dialysis catheter has been withdrawn. Mild increased markings are seen at the right lung base as well as in the left parahilar region. The CHF has improved. Mild residual changes persist. Blunting of the right costophrenic angle. There is moderate cardiac enlargement. A left-sided dual-chamber pacemaker is seen. Normal mediastinum and andi. Normal visualized pulmonary arteries. Normal visualized aortic arch and descending thoracic aorta. Normal visualized thoracic spine. Normal visualized ribs, clavicles, and shoulders. There is no demonstrated abnormality of the visualized soft tissue structures of the upper abdomen. RAD/Chest 1 View (Portable) IMPRESSION: Mild residual markings at the right lung base and the left perihilar region. The CHF has improved. Mild residual changes persist. Blunting of the right costophrenic angle. Electronically Signed: Leonard Nunez MD at 14:16 EDT ,
--- NOTE | 2022-12-22 14:53 | EX.PCM.CONCC ---
Assessment & Plan Assessment/Plan (1) Altered mental status: QUALIFIERS: Altered mental status type: unspecified Qualified Code(s): R41.82 - Altered mental status, unspecified PLAN: Plan RECOMMENDATIONS: 1. Continue empiric with HCAP antibiotics 2. Place midline 3. Dialysis per nephrology now 4. May benefit from volume removal, but defer to nephrology 5. Continue BiPAP until dialysis completed IMPRESSIONS: 1. Respiratory distress Patient was significantly elevated work of breathing at this time. Clinical suspicion is compensation for metabolic acidosis leading to increased respiratory drive. Patient does have some pleural effusion noted on CT scan of the chest, but no PE is appreciated. We will continue with BiPAP for now to help with respiratory muscle fatigue. Patient has had issues with acidosis related to sepsis in the past. Patient has tested positive for rhinovirus, but was originally positive on 12/06/2022. It is unclear if this is residual. Patient does not have any history to help with elucidation. Patient's blood culture has shown Staph epidermidis that may represent a contaminant, but sepsis would be a concern. 2. End-stage renal disease with uremia Nephrology has been consulted. Patient with a clotted fistula on presentation. This has been addressed. Patient pulled out his temporary hemodialysis line, so we will attempt to avoid a central line at this time. 3. Metabolic encephalopathy/delirium Multiple possible etiologies. Infection and uremia would be a concern. Could treat with as needed Haldol, but hopefully patient will improve with hemodialysis. 4. History of A. fib/secondary hyperparathyroidism/anemia of chronic disease/diabetes mellitus/obesity/possible psychiatric issues Complicates care, management, recovery and prognosis. Rate appears to be controlled at this time. We will watch blood sugars closely. HPI Consult Data Date of Consult: 12/22/22 HPI Narrative Reason for Consultation: Respiratory distress HPI Narrative: JUVENCIO QUINTERO is a 61 M, with past medical history listed below, who presented to [facility] on 12/20/2022 secondary to cough and change in mental status. Patient has an extensive past medical history and has been seen by myself on previous hospitalizations. Patient does have a chronic indwelling Barnes catheter and reportedly had felt sick. Patient had denied any chest pain or shortness of breath at that time. Patient reportedly had dialysis on the day prior to presentation. In the ER, patient was afebrile, but tachycardic at 113 bpm. Patient also noted to be hypertensive at 155/94 and requiring 3 L nasal cannula to maintain saturations. Laboratory data showed a white blood cell count of 14, hemoglobin of 9.6 and platelets of 189. ESR was slightly elevated at 86 and creatinine was 6.76 with a BUN of 54. Patient's bicarbonate was 19 and glucose was 142. Bilirubin was slightly elevated and CRP was 59.1. Chest x-ray showed no acute infiltrates. Patient had reported significant nausea and had been treated with Zofran and Haldol. Patient was initially admitted to the PCU for further observation. In the PCU, patient remained agitated. Patient pulled out his tunneled hemodialysis line. Patient did end up going to the Administrative Sales Assistant to have his fistula clot removed. Patient reportedly had tolerated this well, but was noted to have significant increased work of breathing. Given concern for possible intubation, patient was transferred to the intensive care unit for further evaluation. Patient was on BiPAP on transfer to the intensive care unit to help with work of breathing. On my evaluation of the patient in the intensive care unit, patient was tachypneic, but did not appear uncomfortable. Patient had not reported any chest pain, but did spontaneously yell out intermittently. Patient is not able to provide any additional history at this time. [facility] Medical History Ambulates with cane Anemia Anemia in chronic kidney disease Atherosclerosis of [place] coronary artery of [place] heart without angina pectoris Benign prostatic hyperplasia Chronic diastolic (congestive) heart failure Chronic indwelling Barnes catheter Diabetes mellitus, type II End-stage renal disease on hemodialysis Essential hypertension Barnes catheter in place Gout History of chronic renal failure Hydronephrosis concurrent with and due to calculi of kidney and ureter Hyperlipidemia ICD (implantable cardioverter-defibrillator) in place Iron deficiency anemia Left bundle branch block (LBBB) Morbid obesity Non-ischemic cardiomyopathy Non-smoker Nonsustained ventricular tachycardia Open wound RAQUEL (obstructive sleep apnea) Right foot drop Secondary hyperparathyroidism (of renal origin) Sepsis Sleep apnea Venous ulcer of left lower extremity without varicose veins Walker as ambulation aid Wears glasses Medical History unable to obtain Home Medications allopurinol 300 mg tablet 150 mg PO DAILY GOUT 01/27/16 [History Last Taken 12/15/22] latanoprost 0.005 % eye drops 1 drp EACH EYE QHS GLAUCOMA 12/23/18 [History Last Taken 12/14/22] tamsulosin 0.4 mg capsule 0.4 mg PO QHS PROSTATE 06/21/19 [History Last Taken 12/14/22] acetaminophen 325 mg tablet (Tylenol) 650 mg PO Q4H PRN Pain 08/06/22 [History Last Taken 08/04/22] ammonium lactate 12 % lotion 1 applic topical BID SEVERE DRY SKIN 08/06/22 [History Last Taken 12/15/22] aspirin 81 mg tablet,delayed release 81 mg PO DAILY HEART HEALTH 08/06/22 [History Last Taken 12/15/22] atorvastatin 80 mg tablet 80 mg PO QHS CHOLESTEROL 08/06/22 [History Last Taken 12/14/22] cinacalcet 60 mg tablet 30 mg PO MOWEFR SUPPLEMENT 08/06/22 [History Last Taken 12/15/22] vitamin B complex and vitamin C no.20-folic acid 1 mg capsule 1 cap PO DAILY SUPPLEMENT 08/06/22 [History Last Taken 12/15/22] midodrine 10 mg tablet 10 mg PO TID Check with primary doctor 10/08/22 [History Last Taken 12/15/22] furosemide 40 mg tablet 40 mg PO DAILY EDEMA 12/15/22 [History Last Taken 12/15/22] guaifenesin 1,200 mg tablet, extended release 12 hr 1,200 mg PO BID CONGESTION 12/15/22 [History Last Taken 12/15/22] magnesium hydroxide 400 mg/5 mL oral suspension (Milk of Magnesia) 30 ml PO DAILY PRN Constipation 12/21/22 [History Last Taken Unknown] Allergy/AdvReac Type Severity Reaction Status Date / Time aluminum Allergy PT UNSURE Verified 12/15/22 09:18 OF REACTION Family History Father Hypertension Heart disease Diabetes Mother Diabetes Chronic kidney disease Hypertension Anemia Surgical History H/O skin graft History of tonsillectomy and adenoidectomy Hx of appendectomy Hx of tonsillectomy Presence of biventricular implantable cardioverter-defibrillator (ICD) (05/14/11) Social History household members: none Smoking Status: Never smoker alcohol intake: never substance use type: does not use caffeine: Yes ROS Review of Systems ROS Unobtainable: due to mental status Physical Exam Const alert and no apparent distress Constitutional Narrative: Patient confused and calling out Nutritional Appearance: obese HEENT normocephalic and head/scalp atraumatic HEENT Narrative: Mallampati 4 Teeth and Gingiva: poor dentition Eyes PERRL, EOMs intact bilaterally and conjunctivae normal Neck supple General: trachea midline Chest inspection of chest normal Resp Resp Narrative: Improved accessory muscle use on BiPAP Effort and Inspection: tachypneic and uses accessory muscles Auscultation: Negative for rales, rhonchi or wheezes Cardio regular rhythm, S1 normal heart sound and S2 normal heart sound Rate: tachycardic GI normal to inspection, nondistended, normoactive bowel sounds Narrative: New Barnes in place Extremity Extremity Narrative: Venous stasis changes bilateral lower extremities General Extremity: Negative for clubbing Skin General Skin Exam: lichenification Neuro moves all extremities and no focal motor deficits Psych Activity / Motor Behavior: restless Mood & Affect: anxious Medical Records Data Attestation: I reviewed the patient's medical records Medical records narrative: Patient has been seen by myself previously. Patient has had issues with infection from chronic indwelling Barnes with similar type presentation. Patient also has a history of urethral stricture Lab / Micro Data Attestation: I reviewed the patient's lab results. Result Diagrams: 12/22/22 09:50 12/22/22 09:50 Labs: Laboratory Results - last 24 hr 12/21/22 21:32: POC Glucose 115 H 12/22/22 03:01: POC Glucose 107 H 12/22/22 09:50: WBC 18.8 H, RBC 3.65 L, Hgb 10.3 L, Hct 32.8 L, MCV 89.9, MCH 28.2, MCHC 31.4 L D, RDW Std Deviation 64.2 H, RDW Coeff of Jeffrey 19.7 H, Plt Count 165, MPV 10.0, Immature Gran % (Auto) 0.700, Neut % (Auto) 85.2 H, Lymph % (Auto) 7.5 L, [place] % (Auto) 6.0, Eos % (Auto) 0.2, Baso % (Auto) 0.4, Absolute Neuts (auto) 16.0 H, Absolute Lymphs (auto) 1.42, Nucleated RBC % 0 12/22/22 09:50: Sodium 133 L, Potassium 5.6 H, Chloride 104, Carbon Dioxide 22.0, Anion Gap 7, BUN 74 H, Creatinine 8.49 H*, Estim Creat Clear Calc 9.49, Est GFR (MDRD) Af Amer 8 L, Est GFR (MDRD) Non-Af 7 L, BUN/Creatinine Ratio 8.7 L, Glucose 119 H, Calcium 9.3, Total Bilirubin 1.60 H, AST 326 H, ALT 129 H, Alkaline Phosphatase 99, Total Protein 7.7, Albumin 2.5 L, Globulin 5.2 H, Albumin/Globulin Ratio 0.5 L 12/22/22 09:50: Magnesium 2.8 H Micro: Microbiology 12/21/22 05:35 Blood Culture (Wb) - Anticubital Left Bacteria Detection (PCR) - Final Staphylococcus epidermidis mecA Resistance Marker 12/21/22 05:35 Blood Culture (Wb) - Anticubital Left Blood Culture - Preliminary 12/21/22 04:15 Mucosa - Nasopharyngeal Respiratory Panel (PCR) - Final Rhinovirus ABG Data ABG results: ABG 12/22/22 13:18 Specimen Type ART Sample Site R Radial pH 7.32 L Bicarbonate Actual 21.7 L Total CO2 23 Base Excess -5 L O2 Saturation 51 L ABG pCO2 42.3 ABG pO2 30 L* Tone Test Positive O2 Delivery Device Cannula Liter Flow 2.0 Crit Call To/Read Back Yes Blood Gas Notified Whom SOTO Attestation: I personally reviewed and interpreted this ABG as follows: (Appears to be venous with a metabolic acidosis and increased AA gradient) Radiology Impression A/V Fistula Ultrasound 12/22/22 10:00 Interpretation Summary Widely patent right forearm radial artery and radial artery to cephalic vein arteriovenous fistula anastomosis Residual thrombus is identified in the right mid fistula and outflow component of the fistula. Notably diminished flow in the outflow vein with persistent thrombosis. Examination was noted to be technically difficult Consideration should be for tertiary level attempt at reintervention Ordering Physician: Mercy Soto Referring Physician: Janene Griffin Performed By: Megha Velazquez [place] Chest X-Ray 12/22/22 13:50 IMPRESSION: Mild residual markings at the right lung base and the left perihilar region. The CHF has improved. Mild residual changes persist. Blunting of the right costophrenic angle. Electronically Signed: Leonard Nunez MD at 14:16 EDT , Charges/Coding Visit Charges Inpatient E&M: 76084 Init Hosp L3
[2022-12-22 15:50] LABS: Bedside Glucose 121 mg/dL (74-106)
[2022-12-22 15:50] LABS: Bedside Glucose 102 mg/dL (74-106)
[2022-12-22 15:50] LABS: Bedside Glucose 117 mg/dL (74-106)
[2022-12-22 15:59] LABS: Erythrocyte Sedimentation Rate 66 mm/hr (0-20)
--- NOTE | 2022-12-22 16:13 | DIALYSIS ---
Pt unable to have HD today due to inability to access RLA fistula. Attempted 3x to get a working needle but without success. Pt had a fistulgram with some ballooning last week but not well enough to use. Pt also pulled Right HD cath earlier today. Cece CHADWICK and Dr Jenkins aware and will arrange further access options. report to Sole MILAN
[2022-12-22 17:37] LABS: CRP < 2.90 mg/L (0.0-3.0)
[2022-12-22 18:25] LABS: Bedside Glucose 101 mg/dL (74-106)
--- NOTE | 2022-12-22 18:53 | PCM.HOSP.N ---
Hospitalist Note Patient accepted to [facility] ICU, anticipate transport this evening.
--- NOTE | 2022-12-22 18:53 | PCM.DC.SUM ---
Providers Date of Admission: 12/21/22 Date of Discharge: 12/22/22 Primary Care Physician: Dr. Janene Griffin MD Consultations 12/21/22 05:40 Consult: Urology Routine Consulting Provider: Nile Sow Reason for Consult: Chronic indwelling catheter, d/c in ED to be changed, unable to replace EMERGENT Consult: No MD Notified: Yes Date Notified: 12/21/22 Time Notified: 07:47 Method of Notification: Verbal 12/21/22 05:47 Consult: Nephrology Routine Consulting Provider: Gilmer Pop Reason for Consult: ESRD on HD EMERGENT Consult: No MD Notified: Yes Date Notified: 12/21/22 Time Notified: 06:43 Method of Notification: Answering Service 12/22/22 08:13 Consult: General Surgery Routine Consulting Provider: Jeramie Horne Reason for Consult: Pulled out tunnel catheter for HD, fistula clott (prev placed by Dr. Moya) EMERGENT Consult: No MD Notified: Yes Date Notified: 12/22/22 Time Notified: 08:31 Method of Notification: Text 12/22/22 13:53 Consult: Ground Layer / Pulmonary Medicine Routine Consulting Provider: Pulmonary Medicine [facility] Reason for Consult: acute hypoxic respiratory failure EMERGENT Consult: No MD Notified: Yes Date Notified: 12/22/22 Time Notified: 13:53 Method of Notification: Verbal Reason For Visit: NAUSEA, TACHYCARD/LEUKOCYTOSIS Diagnosis Discharge Diagnosis (1) Altered mental status: Status: Resolved Code(s): R41.82 - Altered mental status, unspecified Qualifiers: Altered mental status type: unspecified Qualified Code(s): R41.82 - Altered mental status, unspecified (2) Urethral stricture: Status: Acute Code(s): N35.919 - Unspecified urethral stricture, male, unspecified site (3) Urinary retention: Status: Acute Code(s): R33.9 - Retention of urine, unspecified (4) History of end stage renal disease: Status: Acute Code(s): Z87.448 - Personal history of other diseases of urinary system (5) Leukocytosis: Status: Acute Code(s): D72.829 - Elevated white blood cell count, unspecified (6) Anemia due to chronic kidney disease: Status: Chronic Code(s): N18.9 - Chronic kidney disease, unspecified; D63.1 - Anemia in chronic kidney disease (7) ESRD (end stage renal disease): Status: Acute Code(s): N18.6 - End stage renal disease (8) Atherosclerosis of [place]nine [place] coronary artery of [place] heart without angina pectoris: Status: Acute Code(s): I25.10 - Atherosclerotic heart disease of [place] coronary artery without angina pectoris (9) Afib: Status: Acute Code(s): I48.91 - Unspecified atrial fibrillation (10) Secondary hyperparathyroidism: Status: Acute Code(s): N25.81 - Secondary hyperparathyroidism of renal origin (11) Problem with dialysis access: Status: Acute Code(s): T82.898A - Other specified complication of vascular prosthetic devices, implants and grafts, initial encounter Qualifiers: Encounter type: initial encounter Qualified Code(s): T82.898A - Other specified complication of vascular prosthetic devices, implants and grafts, initial encounter (12) Presence of biventricular implantable cardioverter-defibrillator (ICD): Status: Chronic Code(s): Z95.810 - Presence of automatic (implantable) cardiac defibrillator (13) Non-ischemic cardiomyopathy: Status: Resolved Code(s): I42.8 - Other cardiomyopathies (14) Essential hypertension: Status: Chronic Code(s): I10 - Essential (primary) hypertension (15) Diabetes mellitus, type II: Status: Chronic Code(s): E11.9 - Type 2 diabetes mellitus without complications Qualifiers: 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 mellitus 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 insulin use: unspecified 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 insulin use status Diabetes mellitus complication status: with skin complications Diabetes mellitus complication detail: with other skin ulcer Qualified Code(s): E11.622 - Type 2 diabetes mellitus with other skin ulcer; L98.499 - Non-pressure chronic ulcer of skin of other sites with unspecified severity (16) Morbid obesity: Status: Chronic Code(s): E66.01 - Morbid (severe) obesity due to excess calories Plan #encephalopathy, likely metabolic -Pt progressively more altered throughout the day, likely metabolic and also likely multifactorial -Uremia +/- underlying infection #Tachycardia -Somewhat better today, still unclear etiology -Troponin and D-dimer were elevated on admission however may be due to his end-stage renal disease and comorbidities -CTA with no PE or dissection, bilateral pleural effusions with associated dependent lower lobe consolidation -Did have elevated CRP 59 but it is down from 67 on 12/08 -Pro-Alvin was also elevated 2.8 -Is on Zosyn and vancomycin -Cultures pending -Was rhinovirus positive which may be culprit for no bacterial infection identified #ESRD on HD MWF -Had tunneled dialysis catheter placed 12/17/2022, pulled it out this a.m. -Fistulogram 12/17 showed his fistula clotted -Nephro following -Still has need for dialysis -Discussed with surgery who reported there is no other viable interventional axis that would be feasible at our institution but recommended checking the fistula to see if there is any improvement and if not that he may need transferred.? Fistula no longer completely clotted, discussed with nephrology and they will attempt to perform dialysis with fistula however there is concern due to his agitation.? He was able to answer orientation questions but somewhat tired and agitated with unclear etiology though likely multifactorial in setting of infection, BUN, chronical medical comorbidities.? Did appear to be slight increased work of breathing and ABG ordered, pH 7.32, O2 sat 51 with a PaO2 of 38 and PCO2 42.? Ordered BiPAP, chest x-ray, echo.? Discussed with ICU, likely venous sample but given progressively worse mental status will transfer to ICU for further/closer monitoring #Urethral stricture -Was unable to replace catheter at bedside with urology -They recommended monitoring postvoid and attempting voiding trials especially as he is likely to pull out catheter #Type 2 diabetes mellitus -Glucose checks and sliding scale insulin #Chronic Combined CHF/Nonischemic Cardiomyopathy/NSVT s/p AICD #DVT ppx: Heparin subcu Medications at Discharge Home Medications allopurinol 300 mg tablet 150 mg PO DAILY GOUT 01/27/16 latanoprost 0.005 % eye drops 1 drp EACH EYE QHS GLAUCOMA 12/23/18 tamsulosin 0.4 mg capsule 0.4 mg PO QHS PROSTATE 06/21/19 acetaminophen 325 mg tablet (Tylenol) 650 mg PO Q4H PRN Pain 08/06/22 ammonium lactate 12 % lotion 1 applic topical BID SEVERE DRY SKIN 08/06/22 aspirin 81 mg tablet,delayed release 81 mg PO DAILY HEART HEALTH 08/06/22 atorvastatin 80 mg tablet 80 mg PO QHS CHOLESTEROL 08/06/22 cinacalcet 60 mg tablet 30 mg PO MOWEFR SUPPLEMENT 08/06/22 vitamin B complex and vitamin C no.20-folic acid 1 mg capsule 1 cap PO DAILY SUPPLEMENT 08/06/22 midodrine 10 mg tablet 10 mg PO TID Check with primary doctor 10/08/22 furosemide 40 mg tablet 40 mg PO DAILY EDEMA 12/15/22 guaifenesin 1,200 mg tablet, extended release 12 hr 1,200 mg PO BID CONGESTION 12/15/22 magnesium hydroxide 400 mg/5 mL oral suspension (Milk of Magnesia) 30 ml PO DAILY PRN Constipation 12/21/22 Hospital Course Summary of Care Provided Minutes Spent on Discharge: 50 Hospital Course: The patient is a 61 y/o M w/ PMHx: Obesity, CAD, ESRD on HD (T, Th, Sat w/ Dr. Chavez prior but most recent visit w/ Dr. Pop evaluation), HTN, HLD, Chronic Combined CHF/Nonischemic Cardiomyopathy, Hx NSVT s/p AICD placement, Diabetes mellitus type II, Chronic anemia/AOCD/Fe deficiency anemia, RAQUEL, Chronic venous stasis disease, recent discharged on 12/19/22 after admit for dyspnea 2/2 overload as well as AV fistula malfunction who presented 12/21/22 for increasing agitation and nausea. His hospitalization 12/15/2022 resulted in left subclavian 23 cm precurved dialysis catheter placement on 12/16/[address] Moya after attempted right IJ and left IJ were unsuccessful and right EJ was torturous and not deemed to be a good candidate. He also had right upper extremity fistulogram with angioplasty. He was discharged to SNF and when he Re-presented he was noted to have tachycardia with leukocytosis and nausea as well as elevated D-dimer he was started on broad-spectrum antibiotics and CTA obtained which did not show PE and had some pleural effusions but did not appear to be acutely overloaded or need for urgent dialysis. On the morning of 12/22 Pulled out tunneled dialysis catheter, had a sitter previously due to concerns for pulling out lines but he had made no indication he would pull this out and had been deemed not to need 24/7 sitter but after sitter left and during shift change he pulled this out and hemostasis obtained. Discussed with surgery team this a.m. he reported the pt was very difficult to access and the only location available was the right-sided tunneled catheter access and that there was no other location that they would feel comfortable attempting to access given last placement and his anatomy as well as his comorbidities.? He did have a good thrill over his right fistula this AM and discussed with nephrology who tried to dialyze him through that.? He did get progressively more agitated and somewhat tachypneic as the day progressed and ABG ordered and appeared to have a low PO2 and SPO2 with normal PCO2 however it seems that this sample is venous however he was placed on BiPAP due to his increased work of breathing and sent to the ICU due to concern for his worsening mental status and possible need for intubation if no improvement.? They attempted to dialyze but did not get good blood flow w/ fitsula and were unable to dialyze.? Discussed with nephrology who did not feel he needed to be emergently dialyzed tonight but would need access in the ability to dialyze over the next 24 to 48 hours or he would significantly worsen potentially. Explored alternative access options but given the present scenario and given initial difficulty it was reiterated that he is not a good candidate for repeated access attempt at our facility and tertiary facility transfer is recommended. Patient accepted to [facility] ICU. Physical Exam Narrative General: In the a.m. he was alert and able to answer orientation questions but while he was still able to answer orientation questions was progressively more tired throughout the day HEENT: Atraumatic, normocephalic Eyes: Anicteric, normal conjunctiva, extraocular movements grossly intact Neck: Supple Respiratory: No wheezes or rhonchi, slight increased work of breathing Cardiovascular: Progressively more tachycardic throughout the morning GI: Soft, nontender Extremities: No edema, cool extremities Musculoskeletal: Moving all extremities Neuro: No overt focal neurological deficits Skin: Chronic lower extremity changes Psych: Cooperative with me but did pull out tunneled dialysis catheter and only intermittently cooperative with staff Weight / BMI Weight Weight: 116 kg Body Mass Index (BMI) 35.6 ABG / Lab / Microbiology Data Result Diagrams: 12/22/22 09:50 12/22/22 09:50 Laboratory: Laboratory Results - last 24 hr 12/21/22 21:32: POC Glucose 115 H 12/22/22 03:01: POC Glucose 107 H 12/22/22 09:50: WBC 18.8 H, RBC 3.65 L, Hgb 10.3 L, Hct 32.8 L, MCV 89.9, MCH 28.2, MCHC 31.4 L D, RDW Std Deviation 64.2 H, RDW Coeff of Jeffrey 19.7 H, Plt Count 165, MPV 10.0, Immature Gran % (Auto) 0.700, Neut % (Auto) 85.2 H, Lymph % (Auto) 7.5 L, [place] % (Auto) 6.0, Eos % (Auto) 0.2, Baso % (Auto) 0.4, Absolute Neuts (auto) 16.0 H, Absolute Lymphs (auto) 1.42, Nucleated RBC % 0 12/22/22 09:50: Sodium 133 L, Potassium 5.6 H, Chloride 104, Carbon Dioxide 22.0, Anion Gap 7, BUN 74 H, Creatinine 8.49 H*, Estim Creat Clear Calc 9.49, Est GFR (MDRD) Af Amer 8 L, Est GFR (MDRD) Non-Af 7 L, BUN/Creatinine Ratio 8.7 L, Glucose 119 H, Calcium 9.3, Total Bilirubin 1.60 H, AST 326 H, ALT 129 H, Alkaline Phosphatase 99, Total Protein 7.7, Albumin 2.5 L, Globulin 5.2 H, Albumin/Globulin Ratio 0.5 L 12/22/22 09:50: Magnesium 2.8 H 12/22/22 09:50: ESR 66 H 12/22/22 09:50: C-React Prot Ext Range < 2.90 12/22/22 10:38: POC Glucose 102 12/22/22 12:03: POC Glucose 117 H 12/22/22 14:02: POC Glucose 121 H 12/22/22 18:05: POC Glucose 101 Microbiology: Microbiology 12/21/22 05:35 Blood Culture (Wb) - Anticubital Left Bacteria Detection (PCR) - Final Staphylococcus epidermidis mecA Resistance Marker 12/21/22 05:35 Blood Culture (Wb) - Anticubital Left Blood Culture - Preliminary 12/21/22 04:15 Mucosa - Nasopharyngeal Respiratory Panel (PCR) - Final Rhinovirus ABG: ABG 12/22/22 13:18 Specimen Type ART Sample Site R Radial pH 7.32 L Bicarbonate Actual 21.7 L Total CO2 23 Base Excess -5 L O2 Saturation 51 L ABG pCO2 42.3 ABG pO2 30 L* Tone Test Positive O2 Delivery Device Cannula Liter Flow 2.0 Crit Call To/Read Back Yes Blood Gas Notified Whom SOTO Radiography Diagnostic Testing: Radiology Impression A/V Fistula Ultrasound 12/22/22 10:00 Interpretation Summary Widely patent right forearm radial artery and radial artery to cephalic vein arteriovenous fistula anastomosis Residual thrombus is identified in the right mid fistula and outflow component of the fistula. Notably diminished flow in the outflow vein with persistent thrombosis. Examination was noted to be technically difficult Consideration should be for tertiary level attempt at reintervention Ordering Physician: Mercy Soto Referring Physician: Janene Griffin Performed By: Megha Velazquez [place] Chest X-Ray 12/22/22 13:50 IMPRESSION: Mild residual markings at the right lung base and the left perihilar region. The CHF has improved. Mild residual changes persist. Blunting of the right costophrenic angle. Electronically Signed: Leonard Nunez MD at 14:16 EDT Reading Location ID and State: [address] [place] [address] , Service support , Meaningful Use Info Meaningful Use Diagnoses (Choose all that apply): None applicable Discharge Plan Admission Admit Date/Time: 12/21/22 18:02 Attending Provider: Mercy Soto Primary Care Provider: Janene Griffin Consulting Providers: Gilmer Pop ; Carole Roberts ; Nile Sow ; Ernesto Akins ; Jeramie Horne ; Madi Graves ; Maciej Castellanos ; Scott Ly ; Ivan Rey ; Melissa To CAVALRY OFFICER Discharge Orders/Prescriptions Prescriptions: No Action tamsulosin 0.4 mg capsule 0.4 mg PO QHS midodrine 10 mg tablet 10 mg PO TID Rx Instructions: do not give last dose of day after 6PM or within 4 hrs of bedtime allopurinol 300 MG tablet 150 mg PO DAILY latanoprost 1 DROP bottle 1 drp EACH EYE QHS atorvastatin 80 mg Tablet 80 mg PO QHS ammonium lactate 12 % Lotion 1 applic TOPICAL BID Rx Instructions: APPLT 1 APPLICATION TOPICALLY TO BILATERAL LOWER EXT TWO TIMES A DAY FOR SEVERELY DRY SKIN aspirin 81 mg Tablet,Delayed Release (Dr/Ec) 81 mg PO DAILY Hold Instructions: Resume on 12/09/22. B complex with C 20-folic acid 1 mg Capsule 1 cap PO DAILY cinacalcet 60 mg Tablet 30 mg PO MOWEFR acetaminophen [Tylenol] 325 mg tablet 650 mg PO Q4H PRN (Reason: Pain) furosemide 40 mg Tablet 40 mg PO DAILY guaifenesin 1,200 mg Tablet Extended Release 12hr 1,200 mg PO BID Rx Instructions: To take for 2 weeks-stop date 01/02/23 magnesium hydroxide [Milk of Magnesia] 400 mg/5 mL Suspension 30 ml PO DAILY PRN (Reason: Constipation) Referrals / Follow Up: Janene Griffin MD [Primary Care Provider] - Disposition Disposition (needs filled in before D/C Order can be placed): Acute Care Hospital Charges/Coding Visit Charges Inpatient E&M: 71857 Disch Hosp >30min
--- NOTE | 2022-12-22 19:58 | NURSING ---
Called report to [facility] ICU Otilio RN
--- NOTE | 2022-12-23 08:38 | CASEMGMT ---
LUH called Yessi, patient's rn field case manager at [facility] and left her a voice mail letting her know patient came back to the hospital on Thursday. Yesterday pulled his tunneled dialysis catheter and was transferred to [facility] in [place]. Giselle SCHMITT
--- NOTE | 2022-12-23 10:30 | CASEMGMT ---
LUH called Dina at [facility] and left her a voice mail letting her know patient was transferred to [facility] in [place]. [facility] let her know patient pulled out his dialysis catheter and fistula was not working so he was transferred. Giselle SCHMITT
== END 2022-12-22 20:20 | disposition short-term general hospital (02) | DRG 308 ==
LOC: ED 12-21 03:46 → PCU 12-21 04:13 → ICU 12-22 14:07
PROVIDERS: Internal Medicine; Admitting Provider Family Medicine; Emergency Provider Emergency Medicine; PCP Internal Medicine; Visit Provider Internal Medicine
DX: R00.0 Tachycardia, unspecified (principal); N18.6 End stage renal disease; G93.41 Metabolic encephalopathy; I13.2 Hypertensive heart and chronic kidney disease with heart failure and with stage 5 chronic kidney disease, or end stage renal disease; E87.4 Mixed disorder of acid-base balance; I50.42 Chronic combined systolic (congestive) and diastolic (congestive) heart failure; N25.81 Secondary hyperparathyroidism of renal origin; T82.898A Other specified complication of vascular prosthetic devices, implants and grafts, initial encounter; D63.8 Anemia in other chronic diseases classified elsewhere; D63.1 Anemia in chronic kidney disease; I42.8 Other cardiomyopathies; E11.22 Type 2 diabetes mellitus with diabetic chronic kidney disease; E11.39 Type 2 diabetes mellitus with other diabetic ophthalmic complication; Z99.2 Dependence on renal dialysis; I48.91 Unspecified atrial fibrillation; E66.01 Morbid (severe) obesity due to excess calories; L98.499 Non-pressure chronic ulcer of skin of other sites with unspecified severity; E11.622 Type 2 diabetes mellitus with other skin ulcer; M10.9 Gout, unspecified; G47.33 Obstructive sleep apnea (adult) (pediatric); I25.10 Atherosclerotic heart disease of native coronary artery without angina pectoris; E78.5 Hyperlipidemia, unspecified; I95.89 Other hypotension; F41.9 Anxiety disorder, unspecified; D72.829 Elevated white blood cell count, unspecified; H40.9 Unspecified glaucoma; Z79.82 Long term (current) use of aspirin; N35.919 Unspecified urethral stricture, male, unspecified site; N32.0 Bladder-neck obstruction; Z95.810 Presence of automatic (implantable) cardiac defibrillator; N40.0 Benign prostatic hyperplasia without lower urinary tract symptoms; R33.8 Other retention of urine
CPT/HCPCS: 36415; 36600; 71045; 71275; 80048; 80053; 80076; 82803; 82962; 83605; 83690; 83735; 84100; 84145; 84484; 85025; 85379; 85652; 86140; 87040; 87077; 87149; 87186; 87633; 87635; 93005; 93990; 94002; 94668; 97162; 97166; 97802; 99285; J7040; J7050; Q9967; A4216; U0003; U0005

== ENCOUNTER → 2022-12-31 | Outpatient (REF) | payer MEDICARE, MEDICAID, SELFPAY ==
[2022-12-31 09:22] LABS: Absolute Neutrophil Count 4.5 X10^3/uL (2.0-7.7); Basophil# 0.05 X10^3/uL; Basophil% 0.7 % (0-1); Eosinophil# 0.25 X10^3/uL; Eosinophils% 3.7 % (0-5); Hematocrit 28.9 % (40-54); Hemoglobin 8.5 g/dL (13.0-16.5); Mean Corp Hgb Conc 29.4 g/dL (32-36); Mean Corpuscular Hgb 28.8 pg (27.0-32.0); Mean Platelet Vol. 10.8 fl (6.2-12.0); Monocyte# 0.63 X10^3/uL; Monocyte% 9.4 % (0-10); NRBC Flagged by Analyzer 0 % (0-5); Neutrophil # 4.51 X10^3/uL (2.7-7.7); Neutrophil % 67.6 % (47-70); POSITIVE MORPHOLOGY YES; Platelet Count 158 K/mm3 (150-450); RBC Distribution Width CV 22.3 % (11.6-14.6); RBC Distribution Width SD 79.8 fl (35.1-43.9); Red Blood Count 2.95 M/mm3 (4.6-6.2); White Blood Count 6.7 K/mm3 (4.4-11.0)
[2022-12-31 09:36] LABS: Differential Indicated SCAN CRITERIA MET
[2022-12-31 09:50] LABS: ALB/GLOB Ratio 0.5 RATIO (0.9-2.4); AST(SGOT) 37 U/L (15-37); Alanine Aminotransfer ALT/SGPT 28 U/L (16-61); Albumin, Serum 2.3 g/dL (3.2-5.0); Alkaline Phosphatase 92 U/L (45-117); Anion Gap 8 (5-15); BUN 40 mg/dL (7-18); Calcium,Total 8.2 mg/dL (8.5-10.1); Chloride 103 mmol/L (98-107); Creatinine, Serum 6.68 mg/dL (0.70-1.30); EST Glomerular Filtration Rate 9 mL/min (>60); Est Glom Filt Rate - Afr Amer 11 mL/min (>60); Globulin 4.5 g/dL (2.2-4.2); Glucose 80 mg/dL (74-106); Magnesium 2.1 mg/dL (1.6-2.6); Potassium 3.9 mmol/L (3.5-5.1); Protein, Total 6.8 g/dL (6.4-8.2); Sodium Level 140 mmol/L (136-145); Thyroid Stim Hormone (TSH) 7.92 uIU/mL (0.358-3.74)
[2022-12-31 10:22] LABS: Anisocytosis 1+; Spherocyte 1+
[2023-01-01 13:07] LABS: Pathologist Review Reviewed
== END ==
LOC: OLS.SW 05:00
PROVIDERS: PCP Internal Medicine; Visit Provider Internal Medicine
DX: E11.9 Type 2 diabetes mellitus without complications (principal); Z99.2 Dependence on renal dialysis
CPT/HCPCS: 36415; 80053; 83735; 84443; 85025

== ENCOUNTER 2023-01-15 11:32 | Day surgery (SDC) | payer MEDICARE, MEDICAID, SELFPAY ==
[2023-01-08 13:34] LABS: Hematocrit 30.1 % (40-54); Hemoglobin 9.1 g/dL (13.0-16.5); Mean Corp Hgb Conc 30.2 g/dL (32-36); Mean Corpuscular Hgb 29.4 pg (27.0-32.0); Mean Corpuscular Volume 97.4 fL (80-94); Mean Platelet Vol. 10.3 fl (6.2-12.0); POSITIVE MORPHOLOGY YES; Platelet Count 182 K/mm3 (150-450); RBC Distribution Width CV 20.5 % (11.6-14.6); RBC Distribution Width SD 73.9 fl (35.1-43.9); Red Blood Count 3.09 M/mm3 (4.6-6.2); White Blood Count 6.1 K/mm3 (4.4-11.0)
[2023-01-08 13:35] LABS: Scan Indicated on CBC? Y/N YES- FLAGS NOTED
[2023-01-08 13:45] LABS: International Normalized Ratio 1.2; Prothrombin Time (Protime)PT. 15.4 SECONDS (11.7-14.9)
[2023-01-08 14:27] LABS: Anion Gap 7 (5-15); BUN 41 mg/dL (7-18); BUN/Creat Ratio 7.5 RATIO (10-20); Calcium,Total 8.7 mg/dL (8.5-10.1); Chloride 98 mmol/L (98-107); Creatinine, Serum 5.47 mg/dL (0.70-1.30); EST Glomerular Filtration Rate 11 mL/min (>60); Est Glom Filt Rate - Afr Amer 14 mL/min (>60); Glucose 98 mg/dL (74-106); Potassium 3.6 mmol/L (3.5-5.1); Sodium Level 136 mmol/L (136-145)
[2023-01-14 10:24] VITALS: BMI 35.9
--- NOTE | 2023-01-15 14:26 | EX.DEFIBPR_ITS ---
Defibrillator Procedure Note Defibrillator Procedure Note Diagnosis: Nonischemic Cardiomyopathy with NYHA Class ii. ICD for primary p revention. Device generator replacement for normal battery depletion Preoperative diagnosis is device at end of life for normal battery depletion. Postoperative diagnosis same as above. After informed consent and IV antibiotics the patient was brought to the [place] catheterization laboratory and the skin over the device was prepped and draped in the usual sterile manner. Intermittent boluses of Versed, and fentanyl were used for sedation and analgesia as well as 1% subcutaneous lidocaine. An incision was made over the pre-existing device. Using blunt and Bovie dissection the pocket was opened and the device was removed. Careful attention was paid not to injure the pre-existing leads. The leads were removed from the device header and they were interrogated. There is normal lead function. Hemostasis was obtained. The pocket was flushed with antibiotic solution. The sponge and needle count were correct. The new device was brought to the field. The leads were placed in the appropriate position in the header and secured by the set screw. The leads and the device were then placed in the pocket. The pocket was closed with a deep layer of running 2-0 Vicryl, a superficial layer of running 4-0 Vicryl, skin with Steri-Strips which were covered with a rolled 4 x 4 and Tegaderm. Patient left the room with the device programmed to proper parameters and there were no complications. The device is a biv ICD chamber [employer] generator. All lead parameters were tested and found to be functionally normal. Lead and device serial and model numbers are available in the chart documents provided by the device company field representatives director procedure summary.
== END 2023-01-15 15:53 ==
LOC: CLSP 11:32
PROVIDERS: Internal Medicine Cardiovascular Disease; PCP Internal Medicine; Referring Provider Internal Medicine Cardiovascular Disease; Visit Provider Internal Medicine Cardiovascular Disease
DX: Z45.02 Encounter for adjustment and management of automatic implantable cardiac defibrillator (principal); Z99.2 Dependence on renal dialysis; I42.8 Other cardiomyopathies; E11.22 Type 2 diabetes mellitus with diabetic chronic kidney disease; N18.6 End stage renal disease; I48.0 Paroxysmal atrial fibrillation; E66.01 Morbid (severe) obesity due to excess calories; I12.9 Hypertensive chronic kidney disease with stage 1 through stage 4 chronic kidney disease, or unspecified chronic kidney disease; E78.5 Hyperlipidemia, unspecified; I25.10 Atherosclerotic heart disease of native coronary artery without angina pectoris; Z95.810 Presence of automatic (implantable) cardiac defibrillator
CPT/HCPCS: 33264; 36415; 80048; 85027; 85610; 93641; 99152; 99153; J7040; J7050

== ENCOUNTER → 2023-02-11 | Outpatient (REF) | payer MEDICARE, MEDICAID, SELFPAY ==
[2023-02-11 11:35] LABS: Anion Gap 8 (5-15); BUN 49 mg/dL (7-18); BUN/Creat Ratio 5.4 RATIO (10-20); Calcium,Total 8.2 mg/dL (8.5-10.1); Chloride 102 mmol/L (98-107); Creatinine, Serum 9.11 mg/dL (0.70-1.30); EST Glomerular Filtration Rate 6 mL/min (>60); Est Glom Filt Rate - Afr Amer 8 mL/min (>60); Glucose 70 mg/dL (74-106); Potassium 4.7 mmol/L (3.5-5.1); Sodium Level 131 mmol/L (136-145)
== END ==
LOC: OLS.SW 08:05
PROVIDERS: PCP Internal Medicine; Visit Provider Internal Medicine
DX: R41.82 Altered mental status, unspecified (principal)
CPT/HCPCS: 36415; 80048

== ENCOUNTER → 2023-02-12 | Outpatient (REF) | payer MEDICARE, MEDICAID, SELFPAY ==
[2023-02-12 09:16] LABS: Absolute Lymphocyte Count 1.16 X10^3/uL (0.83-4.51); Absolute Neutrophil Count 6.6 X10^3/uL (2.0-7.7); Basophil# 0.06 X10^3/uL; Basophil% 0.7 % (0-1); Eosinophil# 0.35 X10^3/uL; Eosinophils% 3.9 % (0-5); Hematocrit 33.5 % (40-54); Hemoglobin 10.1 g/dL (13.0-16.5); Lymphocyte # 1.16 X10^3/ul (0.83-4.51); Mean Corp Hgb Conc 30.1 g/dL (32-36); Mean Corpuscular Hgb 29.5 pg (27.0-32.0); Mean Platelet Vol. 10.5 fl (6.2-12.0); Monocyte# 0.72 X10^3/uL; Monocyte% 8.1 % (0-10); NRBC Flagged by Analyzer 0 % (0-5); Neutrophil # 6.57 X10^3/uL (2.7-7.7); Neutrophil % 73.6 % (47-70); Platelet Count 160 K/mm3 (150-450); RBC Distribution Width CV 18.3 % (11.6-14.6); RBC Distribution Width SD 64.7 fl (35.1-43.9); Red Blood Count 3.42 M/mm3 (4.6-6.2); White Blood Count 8.9 K/mm3 (4.4-11.0)
== END ==
LOC: OLS.SW 05:00
PROVIDERS: PCP Internal Medicine; Visit Provider Internal Medicine
DX: E11.9 Type 2 diabetes mellitus without complications (principal)
CPT/HCPCS: 85025

== ENCOUNTER 2023-02-14 16:21 | Emergency (ER) | payer MEDICARE, MEDICAID, SELFPAY ==
[2023-02-14 16:26] VITALS: BP 111/79; PULSE 77; RESP 16; TEMP 36.6; O2SAT 96; BMI 29.3
--- NOTE | 2023-02-14 17:07 | EKG12_ITS ---
Test Reason : Blood Pressure : / mmHG Vent. Rate : 069 BPM Atrial Rate : 069 BPM P-R Int : 000 ms QRS Dur : 146 ms QT Int : 470 ms P-R-T Axes : 113 256 057 degrees QTc Int : 503 ms Ventricular-paced rhythm with occasional Premature ventricular complexes Biventricular pacemaker detected Abnormal ECG Confirmed by TRE ARCHER, KARL ([id number]), order editor VALENTINA DONOVAN ([id number]) on 02/16/2023 12:38:03 PM Referred By: Confirmed By:KARL TOLEDO MD
--- NOTE | 2023-02-14 17:07 | EX.ED.DYSGE1 ---
HPI History of Present Illness Chief Complaint: Mental Status Change Informant: patient Narrative Narrative: History is a little bit difficult to obtain. Patient states he just did not feel right today but he cannot give me any specifics. On review of systems he denies all specific questions. Evidently per [facility], they could not get a catheter and the patient was more agitated. Patient does have renal failure on dialysis but he still makes urine. He does not know how much he makes on a normal day. He does not know what it looks like on a normal day. [facility] Medical History Ambulates with cane Anemia Anemia in chronic kidney disease Atherosclerosis of [place] coronary artery of [place] heart without angina pectoris Benign prostatic hyperplasia Chronic diastolic (congestive) heart failure Chronic indwelling Barnes catheter Diabetes mellitus, type II End-stage renal disease on hemodialysis Essential hypertension Barnes catheter in place Gout History of chronic renal failure Hydronephrosis concurrent with and due to calculi of kidney and ureter Hyperlipidemia ICD (implantable cardioverter-defibrillator) in place Iron deficiency anemia Left bundle branch block (LBBB) Morbid obesity Non-ischemic cardiomyopathy Non-smoker Nonsustained ventricular tachycardia Open wound RAQUEL (obstructive sleep apnea) Right foot drop Secondary hyperparathyroidism (of renal origin) Sepsis Sleep apnea Venous ulcer of left lower extremity without varicose veins Walker as ambulation aid Wears glasses Home Medications allopurinol 300 mg tablet 150 mg PO DAILY GOUT 01/27/16 [History Last Taken 12/15/22] tamsulosin 0.4 mg capsule 0.4 mg PO QHS PROSTATE 06/21/19 [History Last Taken 12/14/22] acetaminophen 325 mg tablet (Tylenol) 650 mg PO Q4H PRN Pain 08/06/22 [History Last Taken 08/04/22] aspirin 81 mg tablet,delayed release 81 mg PO DAILY HEART HEALTH 08/06/22 [History Last Taken 12/15/22] atorvastatin 80 mg tablet 80 mg PO QHS CHOLESTEROL 08/06/22 [History Last Taken 12/14/22] vitamin B complex and vitamin C no.20-folic acid 1 mg capsule 1 cap PO DAILY SUPPLEMENT 08/06/22 [History Last Taken 12/15/22] guaifenesin 1,200 mg tablet, extended release 12 hr 1,200 mg PO BID CONGESTION 12/15/22 [History Last Taken 12/15/22] magnesium hydroxide 400 mg/5 mL oral suspension (Milk of Magnesia) 30 ml PO DAILY PRN Constipation 12/21/22 [History Last Taken Unknown] buspirone 5 mg tablet 5 mg PO Q8H 01/08/23 [History Last Taken Unknown] cinacalcet 60 mg tablet 60 mg PO .T//SA SUPPLEMENT 01/08/23 [History Last Taken Unknown] ergocalciferol (vitamin D2) 1,250 mcg (50,000 unit) capsule (Vitamin D2) 1,250 mcg PO QMONTH 01/08/23 [History Last Taken Unknown] escitalopram oxalate 10 mg tablet (Lexapro) 10 mg PO DAILY 01/08/23 [History Last Taken Unknown] miconazole nitrate 2 % topical powder 1 applic topical TID 01/08/23 [History Last Taken Unknown] carvedilol 12.5 mg tablet (Coreg) 12.5 mg PO BID #60 tabs 02/08/23 [Rx Last Taken Unknown] cephalexin 500 mg capsule 500 mg PO BID #20 CAPSULES 02/14/23 [Rx Last Taken Unknown] potassium chloride 20 mEq tablet,extended release(part/cryst) 20 meq PO DAILY 02/14/23 [History Last Taken Unknown] Allergy/AdvReac Type Severity Reaction Status Date / Time aluminum Allergy PT UNSURE Verified 02/14/23 16:29 OF REACTION amoxicillin [From Augmentin] AdvReac Intermediate Rash Verified 02/14/23 16:29 clavulanic acid AdvReac Intermediate Rash Verified 02/14/23 16:29 [From Augmentin] Family History Father Hypertension Heart disease Diabetes Mother Diabetes Chronic kidney disease Hypertension Anemia Surgical History H/O skin graft History of tonsillectomy and adenoidectomy Hx of appendectomy Hx of tonsillectomy Presence of biventricular implantable cardioverter-defibrillator (ICD) (05/14/11) Social History household members: none Smoking Status: Never smoker alcohol intake: never substance use type: does not use caffeine: Yes ROS ROS ED ROS Narrative Review of systems is as below. Despite not feeling well he gives me no specific positive answers. Constitutional Constitutional ED: Denies fever(s) ENT ENT ED: Denies sore throat Cardiovascular Cardiovascular: Denies chest pain Respiratory/Chest Respiratory/Chest: Denies cough or dyspnea Gastrointestinal Gastrointestinal: Reports other Details: Patient states he is eating and drinking fine and is not nauseated. He denies diarrhea but we did clean up a large amount of light watters/yellow-colored stool from him. No blood was seen. ; Denies abdominal pain, nausea or vomiting Genitourinary Genitourinary ED: Reports other Details: Urinary retention but patient has no complaints about urination. Musculoskeletal Musculoskeletal: Denies arthralgias Integumentary Denies rash Neurologic Neurologic: Denies headache(s) Hematologic/Lymphatic Hematologic/Lymphatic: Denies easy bleeding or easy bruising Allergic/Immunologic Allergic/Immunologic ED: Denies tongue swelling EXAM Physical Exam Narrative Exam Narrative: CONSTITUTIONAL: Patient is nontoxic in appearance. The patient looks comfortable. He is laying quietly in bed. HEENT: No notable trauma. Mucous membranes mildly dry. No sinus tenderness. No indication of pain with swallowing. EYES: No conjunctival injection. No proptosis. CARDIOVASCULAR: Regular rate. Regular rhythm. No notable murmur. No JVD. RESPIRATORY: No respiratory distress. Breathing is unlabored. No wheezes. No rhonchi. No rales. No pain with a deep breath. He does have a Vas-Cath in the right upper chest and recent placement of ICD pacer in the left. Both of these look good and not infected. GASTROINTESTINAL: Not distended. Bowel sounds are normal. No tenderness. No guarding. No rebound. No palpable mass. No bruit. GENITOURINARY: No tenderness over the bladder. No CVA tenderness. Catheter is in place. He has watters applesauce colored and textured thick urine and over 700 cc in the bag right now. No blood is seen. MUSCULOSKELETAL: Atraumatic. No peripheral edema. No cord. No tenderness along the deep venous system. No asymmetry. NEUROLOGICAL: Patient is alert and appropriate. No focal deficit noted. Despite a history of being agitated at the facility he is calm now SKIN: No noted rashes. No diaphoresis. PSYCHIATRIC: Patient is calm now. Mood is appropriate. Const Vital Signs: 02/14/23 16:26 02/14/23 18:08 Temperature 97.9 F Temperature Source Temporal Pulse Rate 77 66 Respiratory Rate 16 17 Blood Pressure 111/79 97/56 L Blood Pressure Mean 89 69 Pulse Ox 96 99 Oxygen Delivery Method Room Air Room Air MDM MDM MDM Narrative Medical decision making narrative: GraftPatient CBC is normal other than mild anemia. He also has some mild thrombocytopenia. But these levels are close to the past. Patient's electrolytes showed no marked abnormalities other than his chronic kidney disease which we know about. Lactate is normal. Liver function test are overall normal. My independent review of the patient's single view to image AP chest x-ray shows mild haziness of the right. But he has no cough shortness of breath or hypoxia. This is read as small effusion. There may be a component of body habitus and positioning also. Urine is grossly infected. It looks like his prior infections. I looked back on prior cultures. Has had Klebsiella that is usually sensitive to multiple medications including cephalexin. It looks like he may have had a rash from amoxicillin. We will try cephalosporin. We will have a slightly reduced dose because he has urine infection and he has renal failure. Since he is awake alert appropriate nontoxic we have a Barnes in that is draining, his white count is good, he has no fever, his lactate is normal I do not think he needs to be admitted at this time. We did send off cultures. Certainly if he gets more ill he will need to be admitted. Lab Data Attestation: I reviewed the patient's lab results. Labs: Laboratory Results - last 24 hr 02/14/23 02/14/23 17:14 17:28 WBC 10.9 RBC 3.56 L Hgb 10.4 L Hct 34.5 L MCV 96.9 H MCH 29.2 MCHC 30.1 L RDW Std Deviation 63.2 H RDW Coeff of Jfefrey 17.8 H Plt Count 145 L MPV 10.8 Immature Gran % (Auto) 0.900 Neut % (Auto) 83.0 H Lymph % (Auto) 7.4 L Grant % (Auto) 7.9 Eos % (Auto) 0.5 Baso % (Auto) 0.3 Absolute Neuts (auto) 9.1 H Absolute Lymphs (auto) 0.81 L Nucleated RBC % 0 Sodium 135 L Potassium 4.8 Chloride 100 Carbon Dioxide 29.0 Anion Gap 6 BUN 31 H Creatinine 6.28 H Estim Creat Clear Calc 12.66 Est GFR (MDRD) Af Amer 12 L Est GFR (MDRD) Non-Af 10 L BUN/Creatinine Ratio 4.9 L Glucose 93 Lactic Acid 1.5 Calcium 8.4 L Total Bilirubin 0.80 AST 32 ALT 7 L Alkaline Phosphatase 83 Total Protein 7.0 Albumin 2.0 L Globulin 5.0 H Albumin/Globulin Ratio 0.4 L Urine Color Yellow Urine Clarity Turbid Urine pH 7.0 Ur Specific [place] 1.010 Urine Protein 500 H Urine Glucose (UA) Normal Urine Ketones Negative Urine Occult Blood 250 H Urine Nitrite Negative Urine Bilirubin Negative Urine Urobilinogen Normal Ur Leukocyte Esterase 500 H Urine RBC 0 SEEN Urine WBC >100 SEEN Ur Squamous Epith Cells 0 SEEN Urine Bacteria 0 SEEN Urine Mucus 0 SEEN Radiography Diagnostic Testing: Clinical Impression(s) from Imaging Studies Chest X-Ray 02/14/23 17:40 IMPRESSION: Cardiomegaly with minimal right-sided effusion. Support structures in good position. Electronically Signed: Juan Antonio Rodríguez MD at 18:35 EDT , Management Discussion w/another healthcare provider: Hospitalist Discharge Plan Triage Chief Complaint: Mental Status Change Other Complaint: Complaint ED Provider: Antoine Cruz Dx/Rx/DC Orders Clinical Impression: Acute UTI, Chronic anemia Instructions: Urinary Tract Infections in Men Prescriptions: New cephalexin [cephalexin] 500 mg capsule 500 mg PO BID Qty: 20 0RF No Action tamsulosin 0.4 mg capsule 0.4 mg PO QHS buspirone 5 mg tablet 5 mg PO Q8H miconazole nitrate 2 % powder 1 applic topical TID ergocalciferol (vitamin D2) [Vitamin D2] 1,250 mcg (50,000 unit) capsule 1,250 mcg PO QMONTH escitalopram oxalate [Lexapro] 10 mg tablet 10 mg PO DAILY allopurinol 300 MG tablet 150 mg PO DAILY atorvastatin 80 mg Tablet 80 mg PO QHS aspirin 81 mg Tablet,Delayed Release (Dr/Ec) 81 mg PO DAILY Hold Instructions: Resume on 12/09/22. B complex with C 20-folic acid 1 mg Capsule 1 cap PO DAILY acetaminophen [Tylenol] 325 mg tablet 650 mg PO Q4H PRN (Reason: Pain) cinacalcet 60 mg tablet 60 mg PO . guaifenesin 1,200 mg Tablet Extended Release 12hr 1,200 mg PO BID Rx Instructions: To take for 2 weeks-stop date 01/02/23 magnesium hydroxide [Milk of Magnesia] 400 mg/5 mL Suspension 30 ml PO DAILY PRN (Reason: Constipation) potassium chloride 20 mEq tablet,ER particles/crystals 20 meq PO DAILY carvedilol [Coreg] 12.5 mg tablet 12.5 mg PO BID Qty: 60 12RF Rx Instructions: must administer with a meal/food Primary Care Provider: Janene Griffin Referrals: Janene Griffin MD [Primary Care Provider] - 3-5 Days if not improving Disposition Disposition: [facility] Discharge Location: [facility]
[2023-02-14 17:40] LABS: Bacteria 0 SEEN /hpf (None Seen); Mucous, Urine 0 SEEN /hpf (<or=2+); Red Blood Cells-Urine 0 SEEN /hpf (0-5); Squamous Epithelial Cells - UA 0 SEEN /hpf (0-5)
--- NOTE | 2023-02-14 17:40 | RAD_ITS ---
EXAM: XR CHEST, 1 VIEW CLINICAL INDICATION: weakness TECHNIQUE: Frontal view of the chest. COMPARISON: 12/22/2022 FINDINGS: LUNGS AND PLEURAL SPACES: Haziness in right base which may represent small effusion. No pneumothorax. HEART: Cardiac silhouette is enlarged in size. MEDIASTINUM: Central airways and mediastinal contour are unremarkable. BONES/JOINTS: Unremarkable. SOFT TISSUES: Unremarkable. TUBES, LINES AND DEVICES: Left-sided pacemaker is in stable position. Right jugular catheter is in place with the distal tip overlying the right atrium. RAD/Chest 1 View (Portable) IMPRESSION: Cardiomegaly with minimal right-sided effusion. Support structures in good position. Electronically Signed: Juan Antonio Rodríguez MD at 18:35 EDT ,
[2023-02-14 17:42] LABS: Absolute Lymphocyte Count 0.81 X10^3/uL (0.83-4.51); Absolute Neutrophil Count 9.1 X10^3/uL (2.0-7.7); Basophil# 0.03 X10^3/uL; Basophil% 0.3 % (0-1); Eosinophil# 0.06 X10^3/uL; Eosinophils% 0.5 % (0-5); Hematocrit 34.5 % (40-54); Hemoglobin 10.4 g/dL (13.0-16.5); Lymphocyte # 0.81 X10^3/ul (0.83-4.51); Lymphocyte % 7.4 % (19-41); Mean Corp Hgb Conc 30.1 g/dL (32-36); Mean Corpuscular Hgb 29.2 pg (27.0-32.0); Mean Corpuscular Volume 96.9 fL (80-94); Mean Platelet Vol. 10.8 fl (6.2-12.0); Monocyte# 0.86 X10^3/uL; Monocyte% 7.9 % (0-10); NRBC Flagged by Analyzer 0 % (0-5); Neutrophil # 9.07 X10^3/uL (2.7-7.7); Platelet Count 145 K/mm3 (150-450); RBC Distribution Width CV 17.8 % (11.6-14.6); RBC Distribution Width SD 63.2 fl (35.1-43.9); Red Blood Count 3.56 M/mm3 (4.6-6.2); White Blood Count 10.9 K/mm3 (4.4-11.0)
[2023-02-14 18:08] VITALS: BP 97/56; PULSE 66; RESP 17; O2SAT 99
[2023-02-14 18:11] LABS: ALB/GLOB Ratio 0.4 RATIO (0.9-2.4); AST(SGOT) 32 U/L (15-37); Alanine Aminotransfer ALT/SGPT 7 U/L (16-61); Alkaline Phosphatase 83 U/L (45-117); Anion Gap 6 (5-15); BUN 31 mg/dL (7-18); BUN/Creat Ratio 4.9 RATIO (10-20); Calcium,Total 8.4 mg/dL (8.5-10.1); Chloride 100 mmol/L (98-107); Creatinine, Serum 6.28 mg/dL (0.70-1.30); EST Glomerular Filtration Rate 10 mL/min (>60); Est Glom Filt Rate - Afr Amer 12 mL/min (>60); Estimated Creatinine Clearance 12.66 ml/min; Glucose 93 mg/dL (74-106); Lactic Acid 1.5 mmol/L (0.4-1.9); Potassium 4.8 mmol/L (3.5-5.1); Sodium Level 135 mmol/L (136-145)
[2023-02-14 18:20] LABS: Color, Urine Yellow (Yellow); Glucose, Dipstick Normal (Normal); Ketone-Dipstick Negative (Negative); Leukocyte Esterase-Dipstick 500 /ul (Negative); Nitrite-Dipstick Negative (Negative); Occult Blood-Urine 250 /ul (Negative); Protein-Dipstick 500 mg/dl (Negative); Urine Bilirubin Dipstick Negative (Negative); Urine Clarity Turbid (Clear); Urine Urobilinogen Normal (Normal)
[2023-02-14 18:21] LABS: White Blood Cells >100 SEEN /hpf (0-5)
[2023-02-14] MEDS: Ceftriaxone 1 GM/50 ML BAG IV (18:58)
[2023-02-14 20:00] VITALS: BP 95/59; PULSE 64; RESP 16; O2SAT 97
--- NOTE | 2023-02-14 20:23 | ED.RN ---
Report called to Trinh at [facility].
== END 2023-02-14 22:29 | disposition skilled nursing facility (03) ==
PROVIDERS: Emergency Provider Emergency Medicine; PCP Internal Medicine; Visit Provider Emergency Medicine
DX: N39.0 Urinary tract infection, site not specified (principal); I13.2 Hypertensive heart and chronic kidney disease with heart failure and with stage 5 chronic kidney disease, or end stage renal disease; Z99.2 Dependence on renal dialysis; I50.32 Chronic diastolic (congestive) heart failure; E11.22 Type 2 diabetes mellitus with diabetic chronic kidney disease; N18.6 End stage renal disease; I25.10 Atherosclerotic heart disease of native coronary artery without angina pectoris; D64.9 Anemia, unspecified; E78.5 Hyperlipidemia, unspecified; I49.3 Ventricular premature depolarization; Z79.899 Other long term (current) drug therapy
CPT/HCPCS: 71045; 80053; 81001; 83605; 85025; 87040; 87077; 87086; 87088; 87186; 93005; 96365; 99285; A4216

== ENCOUNTER 2023-03-01 00:39 | Emergency (ER) | payer MEDICARE, MEDICAID, SELFPAY ==
[2023-03-01] VITALS (20 sets, daily range): BP systolic 108–146; BP diastolic 66–97; PULSE 66–85; RESP 13–18; TEMP 36.4; O2SAT 94–97; BMI 31.8
--- NOTE | 2023-03-01 00:42 | CT_ITS ---
We are attempting to reach an attending provider to discuss findings. An addendum with communication details will be sent when the communication is complete. INDICATION: Neuro deficit, acute, stroke suspected EXAMINATION: CT Head Stroke Protocol W/O Contrast Injection TECHNIQUE: Multiple axial images were obtained of the head without intravenous contrast. A radiation dose optimization technique was used for this scan. IV Contrast dosage and agent: None. COMPARISON: Head CT from 08/02/2022 FINDINGS: BRAIN PARENCHYMA: There are chronic bilateral low-attenuation subdural fluid collections along frontal parietal convexities compatible with chronic subdural hygromas (measuring up to 16 mm maximum thickness, measurements obtained from coronally constructions). There is superimposed trace amount of high attenuation subdural blood products on the right. No evidence of acute major territorial infarct. Chronic subdural hygromas result in minimal mass effect upon adjacent cerebrum but there is no significant midline shift. Mild chronic periventricular white matter lucencies. Chronic cerebral and cerebellar involutional changes. CSF SPACES: Prominent cerebral sulci and extraaxial spaces secondary to involutional changes. No hydrocephalus. Basal cisterns are patent. Intracranial atherosclerotic calcifications. CALVARIUM, SKULL BASE, PARANASAL SINUSES AND MASTOID AIR CELLS: Chronic partially calcified scalp cysts versus nodules at right frontal and parietal vertex. Calvarium is intact. Small amount of fluid and mucosal thickening within right maxillary sinus. Mastoid air cells are well-pneumatized. ORBITS: No acute findings, as visualized. CT/STROKE Brain/Head without Cont IMPRESSION: 1. Small to moderate size chronic bilateral subdural hygromas with superimposed trace acute subdural hemorrhage on the right. 2. Brain atrophy and chronic small vessel white matter disease but no evidence of acute major territorial infarct. 3. Mild right maxillary sinusitis. Electronically Signed: Cain Rudolph MD at 1:06 EDT ,
--- NOTE | 2023-03-01 00:42 | RAD_ITS ---
INDICATION: Neuro deficit, acute, stroke suspected EXAMINATION/TECHNIQUE: X-RAY - AP view of chest COMPARISON: Chest x-ray from 02/14/2023 FINDINGS: LINES/DEVICES: Left AICD in place. LUNGS: Persistent hazy opacities right mid to lower lung. Moderate size right pleural effusion. No detectable pneumothorax. MEDIASTINUM AND CARDIOVASCULAR STRUCTURES: Heart size within normal limits for imaging technique. Atherosclerotic calcifications along aorta. BONES AND SOFT TISSUES: Skeletal degenerative changes. RAD/Chest 1 View IMPRESSION: Persistent pulmonary opacities right mid to lower lung with moderate size right pleural effusion. Electronically Signed: Cain Rudolph MD at 2:28 EDT ,
--- NOTE | 2023-03-01 00:43 | CT_ITS ---
We are attempting to reach an attending provider to discuss findings. An addendum with communication details will be sent when the communication is complete. INDICATION: Neuro deficit, acute, stroke suspected EXAMINATION: CTA CAROTIDS AND BRAIN TECHNIQUE: Routine CTA of the head and neck was performed with post processing of the angiographic images for volumetric reconstructions. In addition, images were obtained of the [place]. [place] criteria using the distal ICAs for comparison were used for evaluation of stenoses. 2-D and 3-D reconstructions were reviewed. A radiation dose optimization technique was used for this scan. IV Contrast dosage and agent: 100 cc [id number] COMPARISON: Concurrent unenhanced CT brain. CTA chest from 12/21/2022. FINDINGS: --NECK: AORTIC ARCH AND BRANCHES: Atherosclerosis with no aneurysm, dissection, occlusion or significant stenosis. RIGHT CCA: Mild atherosclerosis but no occlusion, significant stenosis or dissection. RIGHT ICA: Mild atherosclerosis but no occlusion, significant stenosis or dissection. LEFT CCA: Mild atherosclerosis but no occlusion, significant stenosis or dissection. LEFT ICA: Mild atherosclerosis but no occlusion, significant stenosis or dissection. RIGHT VERTEBRAL ARTERY: No occlusion, significant stenosis or dissection. LEFT VERTEBRAL ARTERY: No occlusion, significant stenosis or dissection. NECK SOFT TISSUES: 1.3 cm low-attenuation nodule with rim calcifications at right lobe of thyroid gland. Separate subcentimeter low-attenuation cyst also within right lobe of thyroid gland. Left AICD leads noted. LUNG APICES: Moderate to large bilateral pleural effusions, present on prior exam but increased size on the right. BONES: No acute findings. Degenerative disc space narrowing and endplate spurring at C6-7 resulting in mild spinal canal stenosis. --HEAD: --Anterior circulation: ICAs: Mild calcified plaque bilaterally but no occlusion or significant stenosis. ACAs: No significant stenosis at the visualized segments. ACOM: Present. MCAs: No significant stenosis at the visualized segments. --Posterior circulation: PCOMs: Patent bilaterally. pourer: No significant stenosis at the visualized segments. BASILAR ARTERY: No significant stenosis. VERTEBRAL ARTERIES: No significant stenosis at the intradural/visualized segments. No evidence of intracranial aneurysm or vascular malformation. Chronic bilateral frontal parietal subdural hygromas again noted with trace amount of acute subdural blood products on the right. CT/STROKE CTA Head AND Neck W/Con IMPRESSION: 1. CTA head and neck with no acute arterial occlusive disease or high-grade arterial stenosis. 2. Chronic bilateral subdural hygromas with trace acute subdural blood on the right. See separate head CT report. 3. Moderate to large bilateral pleural effusions. 4. Mildly complex 1.3 cm right thyroid nodule. Consider nonemergent follow-up thyroid ultrasound. 5. Mild lower cervical spondylosis. Electronically Signed: Cain Rudolph MD at 2:53 EDT ,
[2023-03-01] MEDS: Ondansetron ODT 4 MG Tablet PO (01:02)
--- NOTE | 2023-03-01 01:50 | CT_ITS ---
INDICATION: fall, neck pain EXAMINATION: CT Spine Cervical W/O Contrast Injection TECHNIQUE: Helically acquired images were obtained of the cervical spine. 2D reformatted images were reviewed. A radiation dose optimization technique was used for this scan. IV Contrast dosage and agent: None. COMPARISON: Concurrent CTA head and neck and comparison CT cervical spine from 12/23/2018 FINDINGS: VERTEBRAE: No fracture or traumatic subluxation. Stable mild reversal of cervical lordosis with no significant spondylolisthesis. Vertebral body heights are preserved. DISCS and SPINAL CANAL: Chronic degenerative disc space narrowing and endplate spurring at C6-7. Posterior disc osteophyte complex at C6-7 resulting in mild spinal canal stenosis. NECK SOFT TISSUES: Rim calcified 13 mm right lobe thyroid nodule again noted. No prevertebral soft tissue swelling. LUNG APICES: Bilateral pleural effusions. No pneumothorax detected. Left AICD leads present. CT/Spine Cervical without Contras IMPRESSION: 1. Lower cervical spondylosis but no evidence of acute cervical spinal injury. 2. Slightly complex 13 mm nodule within right lobe of thyroid gland. Consider nonemergent follow-up thyroid ultrasound. 3. Bilateral pleural effusions. Electronically Signed: Cain Rudolph MD at 2:57 EDT ,
[2023-03-01 01:59] LABS: Basophil# 0.07 X10^3/uL; Basophil% 1.1 % (0-1); Eosinophil# 0.16 X10^3/uL; Eosinophils% 2.4 % (0-5); Hematocrit 35.2 % (40-54); Hemoglobin 10.6 g/dL (13.0-16.5); Lymphocyte % 12.1 % (19-41); Mean Corp Hgb Conc 30.1 g/dL (32-36); Mean Corpuscular Volume 96.4 fL (80-94); Mean Platelet Vol. 10.3 fl (6.2-12.0); Monocyte# 0.56 X10^3/uL; Monocyte% 8.4 % (0-10); NRBC Flagged by Analyzer 0 % (0-5); Neutrophil # 5.01 X10^3/uL (2.7-7.7); Neutrophil % 75.5 % (47-70); Platelet Count 114 K/mm3 (150-450); RBC Distribution Width CV 17.3 % (11.6-14.6); Red Blood Count 3.65 M/mm3 (4.6-6.2); White Blood Count 6.6 K/mm3 (4.4-11.0)
--- NOTE | 2023-03-01 02:04 | EX.ED.DYSGE1 ---
HPI History of Present Illness Chief Complaint: Stroke Alert [facility] Medical History Ambulates with cane Anemia Anemia in chronic kidney disease Atherosclerosis of [place] coronary artery of [place] heart without angina pectoris Benign prostatic hyperplasia Chronic diastolic (congestive) heart failure Chronic indwelling Barnes catheter Diabetes mellitus, type II End-stage renal disease on hemodialysis Essential hypertension Barnes catheter in place Gout History of chronic renal failure Hydronephrosis concurrent with and due to calculi of kidney and ureter Hyperlipidemia ICD (implantable cardioverter-defibrillator) in place Iron deficiency anemia Left bundle branch block (LBBB) Morbid obesity Non-ischemic cardiomyopathy Non-smoker Nonsustained ventricular tachycardia Open wound RAQUEL (obstructive sleep apnea) Right foot drop Secondary hyperparathyroidism (of renal origin) Sepsis Sleep apnea Venous ulcer of left lower extremity without varicose veins Walker as ambulation aid Wears glasses Home Medications allopurinol 300 mg tablet 150 mg PO DAILY GOUT 01/27/16 [History Last Taken 12/15/22] tamsulosin 0.4 mg capsule 0.4 mg PO QHS PROSTATE 06/21/19 [History Last Taken 12/14/22] acetaminophen 325 mg tablet (Tylenol) 650 mg PO Q4H PRN Pain 08/06/22 [History Last Taken 08/04/22] aspirin 81 mg tablet,delayed release 81 mg PO DAILY HEART HEALTH 08/06/22 [History Last Taken 12/15/22] atorvastatin 80 mg tablet 80 mg PO QHS CHOLESTEROL 08/06/22 [History Last Taken 12/14/22] vitamin B complex and vitamin C no.20-folic acid 1 mg capsule 1 cap PO DAILY SUPPLEMENT 08/06/22 [History Last Taken 12/15/22] guaifenesin 1,200 mg tablet, extended release 12 hr 1,200 mg PO BID CONGESTION 12/15/22 [History Last Taken 12/15/22] magnesium hydroxide 400 mg/5 mL oral suspension (Milk of Magnesia) 30 ml PO DAILY PRN Constipation 12/21/22 [History Last Taken Unknown] buspirone 5 mg tablet 5 mg PO Q8H 01/08/23 [History Last Taken Unknown] cinacalcet 60 mg tablet 60 mg PO .// SUPPLEMENT 01/08/23 [History Last Taken Unknown] ergocalciferol (vitamin D2) 1,250 mcg (50,000 unit) capsule (Vitamin D2) 1,250 mcg PO QMONTH 01/08/23 [History Last Taken Unknown] escitalopram oxalate 10 mg tablet (Lexapro) 10 mg PO DAILY 01/08/23 [History Last Taken Unknown] miconazole nitrate 2 % topical powder 1 applic topical TID 01/08/23 [History Last Taken Unknown] carvedilol 12.5 mg tablet (Coreg) 12.5 mg PO BID #60 tabs 02/08/23 [Rx Last Taken Unknown] cephalexin 500 mg capsule 500 mg PO BID #20 CAPSULES 02/14/23 [Rx Last Taken Unknown] potassium chloride 20 mEq tablet,extended release(part/cryst) 20 meq PO DAILY 02/14/23 [History Last Taken Unknown] Allergy/AdvReac Type Severity Reaction Status Date / Time aluminum Allergy PT UNSURE Verified 02/14/23 16:29 OF REACTION amoxicillin [From Augmentin] AdvReac Intermediate Rash Verified 02/14/23 16:29 clavulanic acid AdvReac Intermediate Rash Verified 02/14/23 16:29 [From Augmentin] Family History Father Hypertension Heart disease Diabetes Mother Diabetes Chronic kidney disease Hypertension Anemia Surgical History H/O skin graft History of tonsillectomy and adenoidectomy Hx of appendectomy Hx of tonsillectomy Presence of biventricular implantable cardioverter-defibrillator (ICD) (05/14/11) Social History household members: none Smoking Status: Never smoker alcohol intake: never substance use type: does not use caffeine: Yes EXAM Physical Exam Const Vital Signs: 03/01/23 00:39 03/01/23 01:29 03/01/23 00:40 Temperature 97.6 F L Temperature Source Temporal Pulse Rate 66 73 70 Respiratory Rate 16 17 16 Blood Pressure 129/77 H 146/97 H 146/97 H Blood Pressure Mean 94 113 113 Pulse Ox 94 94 94 Oxygen Delivery Method Room Air 03/01/23 00:42 03/01/23 00:42 03/01/23 01:10 Temperature Temperature Source Pulse Rate 71 75 Respiratory Rate 18 16 Blood Pressure 137/80 H 125/84 H Blood Pressure Mean 99 97 Pulse Ox 97 96 Oxygen Delivery Method Room Air 03/01/23 01:12 03/01/23 01:30 03/01/23 01:30 Temperature Temperature Source Pulse Rate 75 71 71 Respiratory Rate 16 18 16 Blood Pressure 125/84 H 121/83 H 121/83 H Blood Pressure Mean 97 95 95 Pulse Ox 97 96 96 Oxygen Delivery Method 03/01/23 02:00 03/01/23 02:00 Temperature Temperature Source Pulse Rate 85 85 Respiratory Rate 16 16 Blood Pressure 111/86 H 111/86 H Blood Pressure Mean 94 94 Pulse Ox 97 97 Oxygen Delivery Method MDM MDM MDM Narrative Medical decision making narrative: HISTORY OF PRESENT ILLNESS: 62-year-old male here with concern for acute CVA. Per EMS patient was found down noted to have left upper extremity weakness. Last known well was 11 PM. The patient is a poor historian does not provide a lot of history. REVIEW OF SYSTEMS: Pertinent positives: Focal weakness, Pertinent negatives: Chest pain, shortness of PHYSICAL EXAM: Nursing triage notes reviewed, Vital signs reviewed Primary Survey Airway: Intact Breathing: Bilateral breath sounds Circulation: Palpable bilateral femorals, Palpable bilateral radial, Palpable bilateral DP and Palpable bilateral PT Disability / Spine precautions GCS Score: Eye Openin Verbal Response: 5 Motor Response: 6 Secondary Survey Constitutional: Please see MDM Head: Atraumatic, Midface stable, NO jaw malocclusion, No Cephalohematoma, and No Lacerations noted Eye: Pupils equal round and reactive to light, Extraocular muscles intact and No periorbital ecchymosis or stepoff, no evidence of entrapment ENT: Oropharynx clear, no lacerations, no hemotympanum, no raccoon eyes or vargas sign Cervical spine / Neck: No cervical spine bony tenderness, crepitance, or stepoff deformity Trachea midline Lungs: Clear to auscultation, No asymmetric rise and No crepitus, no flail chest Cardiac: Regular rate and rhythm and No murmurs Abdomen: Soft, Nontender and No rebound Pelvis: Pelvis stable to compression : No evidence of genital injury Back: No midline bony tenderness to thoracic/lumbar/sacral spines Neuro: Alert, left-sided facial droop, slurred speech, left upper extremity flaccid paralysis, no sensation noted in left upper extremity no obvious incoordination or sensory loss in other extremities. NIH of 13, GCS of 14 Psych: Normal affect Nursing triage notes reviewed, Vital signs reviewed MEDICAL DECISION MAKING: Chief Complaint: [Concern for acute CVA External records reviewed: Last ED visit on 02/14/2023 Factors affecting care: ESRD, status post ICD, atrial fibrillation, nonischemic cardiomyopathy, type 2 diabetes, hyperlipidemia, hypertension, morbid obesity Social determinants of health: Elderly History obtained from others: EMS Consults: Trauma surgery, stroke neurology ALL IMAGES (IF OBTAINED) HAVE BEEN PERSONALLY REVIEWED AND INTERPRETED BY MYSELF. MDM Narrative: Patient was initially hemodynamically stable however upon arrival prior to stroke evaluation patient was noted to have acute nausea and vomiting. This required a delay take the patient directly to CT for stabilization. Once patient was deemed stable taken directly to CT as per stroke protocol. We had difficult time obtaining IV access initially. Noncon CT returned with evidence of an acute on chronic subdural hematoma on the right which could potentially explain his symptoms. Given bleeding he was not a candidate for TNK at this time. Stroke neurologist also agreed with this. A CTA was also ordered. Given difficult IV access. I initially attempted to place a 14-gauge Angiocath in the right femoral vein however this failed to obtain adequate IV access. A right femoral vein central line was then placed. Please see below procedure note. Patient then taken for CT scan with contrast of the head and neck as well as a CT scan of the cervical spine rule out any associated traumatic injury. Given the patient was found down I am concerned he is having a traumatic subdural hematoma. Given the trauma he needs to be transported to the nearest level 1 trauma center. I spoke to Dr. Hernandez the trauma surgeon at [facility] who accepts of the patient's case if he did have a large vessel occlusion. He was then taken emergently to CT scan and obtain a CT scan of the neck as well as the CTA as discussed earlier. CT scan of the neck and CTA showed no evidence of large vessel occlusion. Discussed the case with Dr. Henrandez excepted the patient. ICH score of 0. Procedure: Central line placement. Indication: Venous Access Consent: verbal. Risks of bleeding, infection, and pneumothorax were explained. A time out was completed. Maximal sterile barrier technique was used including cap, gown, sterile gloves, large sheet, hand washing and chlorhexidine prep. Anesthesia: The area anesthetized with 1% lidocaine. Procedure: The right femoral vein was punctured with a 19 gauge finder needle, then a wire introducer was placed, a 7 [place] triple lumen catheter was placed using Seldinger technique. There were no complications. Blood return was low pressure and non-pulsatile dark blood. Line secured in place with suture, and a sterile bio-occlusive dressing was applied. Patient tolerated procedure well. The procedure was performed by Denis Espinosa DO The patient and/or family, caregivers express understanding. The patient and/or family, caregivers agrees with the plan. Total critical care time today provided was at least 60minutes. This excludes separately billable procedures. Critical care time (if documented) is secondary to the patient having high probability of clinically significant/life threatening deterioration in the patient's condition which required my urgent intervention. Shared decision making: I will have a discussion with the patient and or visitors regarding risk/benefits of further testing or admission. They will be made aware of of the risk/benefits inherent in this decision they will be given the opportunity to voice understanding. Lab Data Labs: Laboratory Results - last 24 hr 03/01/23 01:50 WBC 6.6 RBC 3.65 L Hgb 10.6 L Hct 35.2 L MCV 96.4 H MCH 29.0 MCHC 30.1 L RDW Std Deviation 61.0 H RDW Coeff of Jeffrey 17.3 H Plt Count 114 L MPV 10.3 Immature Gran % (Auto) 0.500 Neut % (Auto) 75.5 H Lymph % (Auto) 12.1 L [place] % (Auto) 8.4 Eos % (Auto) 2.4 Baso % (Auto) 1.1 H Absolute Neuts (auto) 5.0 Absolute Lymphs (auto) 0.80 L Nucleated RBC % 0 PT 14.4 INR 1.1 APTT 38.1 H Sodium 137 Potassium 4.9 Chloride 100 Carbon Dioxide 35.0 H Anion Gap 2 L BUN 27 H Creatinine 6.42 H Estim Creat Clear Calc 12.38 Est GFR (MDRD) Af Amer 11 L Est GFR (MDRD) Non-Af 9 L BUN/Creatinine Ratio 4.2 L Glucose 97 Calcium 8.7 Troponin I High Sens 31 Radiography Diagnostic Testing: Clinical Impression(s) from Imaging Studies Brain CT 03/01/23 00:42 IMPRESSION: 1. Small to moderate size chronic bilateral subdural hygromas with superimposed trace acute subdural hemorrhage on the right. 2. Brain atrophy and chronic small vessel white matter disease but no evidence of acute major territorial infarct. 3. Mild right maxillary sinusitis. Electronically Signed: Cain Rudolph MD at 1:06 EDT , ADDENDUM: 03/01/23 0115 IMPRESSION: 1. Small to moderate size chronic bilateral subdural hygromas with superimposed trace acute subdural hemorrhage on the right. 2. Brain atrophy and chronic small vessel white matter disease but no evidence of acute major territorial infarct. 3. Mild right maxillary sinusitis. N.B. : The above Results were Read Back by Cain Rudolph MD to Denis Espinosa DO, and understanding confirmed on 03/01/2023 01:08:06 (ET). Electronically Signed: Cain Rudolph MD at 1:06 EDT , Chest X-Ray 03/01/23 00:42 IMPRESSION: Persistent pulmonary opacities right mid to lower lung with moderate size right pleural effusion. Electronically Signed: Cain Rudolph MD at 2:28 EDT , Head/Neck CTA 03/01/23 00:43 IMPRESSION: 1. CTA head and neck with no acute arterial occlusive disease or high-grade arterial stenosis. 2. Chronic bilateral subdural hygromas with trace acute subdural blood on the right. See separate head CT report. 3. Moderate to large bilateral pleural effusions. 4. Mildly complex 1.3 cm right thyroid nodule. Consider nonemergent follow-up thyroid ultrasound. 5. Mild lower cervical spondylosis. Electronically Signed: Cain Rudolph MD at 2:53 EDT , ADDENDUM: 03/01/23 0306 IMPRESSION: 1. CTA head and neck with no acute arterial occlusive disease or high-grade arterial stenosis. 2. Chronic bilateral subdural hygromas with trace acute subdural blood on the right. See separate head CT report. 3. Moderate to large bilateral pleural effusions. 4. Mildly complex 1.3 cm right thyroid nodule. Consider nonemergent follow-up thyroid ultrasound. 5. Mild lower cervical spondylosis. N.B. : The above Results were Read Back by Cain Rudolph MD to Denis Espinosa DO, and understanding confirmed on 03/01/2023 02:59:24 (ET). Electronically Signed: Cain Rudolph MD at 2:53 EDT , Cervical Spine CT 03/01/23 01:50 IMPRESSION: 1. Lower cervical spondylosis but no evidence of acute cervical spinal injury. 2. Slightly complex 13 mm nodule within right lobe of thyroid gland. Consider nonemergent follow-up thyroid ultrasound. 3. Bilateral pleural effusions. Electronically Signed: Cain Rudolph MD at 2:57 EDT , Discharge Plan Triage Chief Complaint: Stroke Alert ED Provider: Denis Espinosa Dx/Rx/DC Orders Clinical Impression: Acute subdural hematoma Prescriptions: No Action tamsulosin 0.4 mg capsule 0.4 mg PO QHS buspirone 5 mg tablet 5 mg PO Q8H miconazole nitrate 2 % powder 1 applic topical TID ergocalciferol (vitamin D2) [Vitamin D2] 1,250 mcg (50,000 unit) capsule 1,250 mcg PO QMONTH escitalopram oxalate [Lexapro] 10 mg tablet 10 mg PO DAILY allopurinol 300 MG tablet 150 mg PO DAILY atorvastatin 80 mg Tablet 80 mg PO QHS aspirin 81 mg Tablet,Delayed Release (Dr/Ec) 81 mg PO DAILY Hold Instructions: Resume on 12/09/22. B complex with C 20-folic acid 1 mg Capsule 1 cap PO DAILY acetaminophen [Tylenol] 325 mg tablet 650 mg PO Q4H PRN (Reason: Pain) cinacalcet 60 mg tablet 60 mg PO . guaifenesin 1,200 mg Tablet Extended Release 12hr 1,200 mg PO BID Rx Instructions: To take for 2 weeks-stop date 01/02/23 magnesium hydroxide [Milk of Magnesia] 400 mg/5 mL Suspension 30 ml PO DAILY PRN (Reason: Constipation) potassium chloride 20 mEq tablet,ER particles/crystals 20 meq PO DAILY cephalexin [cephalexin] 500 mg capsule 500 mg PO BID Qty: 20 0RF carvedilol [Coreg] 12.5 mg tablet 12.5 mg PO BID Qty: 60 12RF Rx Instructions: must administer with a meal/food Primary Care Provider: Janene Griffin Referrals: Janene Griffin MD [Primary Care Provider] - Disposition Disposition: Acute Care Hospital Discharge Location: [facility]
--- NOTE | 2023-03-01 02:05 | ED.RN ---
ATTEMPTED SEVERAL TIMES TO CONTACT POA, NO ANSWER.
[2023-03-01 02:08] LABS: International Normalized Ratio 1.1; Prothrombin Time (Protime)PT. 14.4 SECONDS (11.7-14.9)
--- NOTE | 2023-03-01 02:08 | ED.RN ---
TIME TO CT DELAYED DUE TO PT NEEDING SUCTIONING AND NAUSEA MEDICATIONS. OTHER DELAYS PRESENT IN CTA AND LABS WAS RELATED TO INABILITY TO OBTAIN IV ACCESS AND CENTRAL LINE NEEDED TO BE PLACED BY DR. HUNTER.
[2023-03-01 02:13] LABS: Partial Thromboplast Time 38.1 Seconds (24.1-36.2)
[2023-03-01 02:19] LABS: Anion Gap 2 (5-15); BUN 27 mg/dL (7-18); BUN/Creat Ratio 4.2 RATIO (10-20); Calcium,Total 8.7 mg/dL (8.5-10.1); Chloride 100 mmol/L (98-107); Creatinine, Serum 6.42 mg/dL (0.70-1.30); EST Glomerular Filtration Rate 9 mL/min (>60); Est Glom Filt Rate - Afr Amer 11 mL/min (>60); Estimated Creatinine Clearance 12.38 ml/min; Glucose 97 mg/dL (74-106); Potassium 4.9 mmol/L (3.5-5.1); Sodium Level 137 mmol/L (136-145); Troponin-I HS 31 pg/mL (3.0-78.0)
--- NOTE | 2023-03-01 03:40 | ED.RN ---
LITTLE [employer]BOLLAR FINALLY ABLE TO BE CONTACTED, HE VOICES DO EVERYTHING YOU CAN, JUST FIX HIM AND KEEP ME UPDATED. UPDATED ON TRANSFER AND CONDITION. Tatiana FELIX RN ALSO OBTAINED VERBAL CONSENT FOR TRANSFER.
== END 2023-03-01 05:07 | disposition short-term general hospital (02) ==
PROVIDERS: Emergency Provider Emergency Medicine; PCP Internal Medicine; Visit Provider Emergency Medicine
DX: S06.5XAA Traumatic subdural hemorrhage with loss of consciousness status unknown, initial encounter (principal); G83.24 Monoplegia of upper limb affecting left nondominant side; R29.810 Facial weakness; R47.81 Slurred speech; R40.2412 Glasgow coma scale score 13-15, at arrival to emergency department; W19.XXXA Unspecified fall, initial encounter; I13.2 Hypertensive heart and chronic kidney disease with heart failure and with stage 5 chronic kidney disease, or end stage renal disease; Z99.2 Dependence on renal dialysis; I50.32 Chronic diastolic (congestive) heart failure; I42.8 Other cardiomyopathies; E11.22 Type 2 diabetes mellitus with diabetic chronic kidney disease; N18.6 End stage renal disease; I48.91 Unspecified atrial fibrillation; I25.10 Atherosclerotic heart disease of native coronary artery without angina pectoris; E78.5 Hyperlipidemia, unspecified; E66.01 Morbid (severe) obesity due to excess calories; Z79.82 Long term (current) use of aspirin; Z79.899 Other long term (current) drug therapy; Z95.810 Presence of automatic (implantable) cardiac defibrillator
CPT/HCPCS: 36556; 70450; 70496; 70498; 71045; 72125; 80048; 84484; 85025; 85610; 85730; 93005; 99285; Q9967; A4216